=== PATIENT | female | born 1955 | race African-American/Black ===

== ENCOUNTER 2016-11-08 09:53 | Inpatient (IN) | payer MEDICARE, OTHER ==
[~2016-11-08] VITALS: Ht 170.2 cm; Wt 127.8 kg
[2016-12-11] MEDS ORDERED: LACTATED RINGER'S 1000 ML INJ 1,000 ML IV ONE (12:00)
[2016-12-11] MEDS ORDERED: ONDANSETRON HCL 4 MG/2 ML VIAL IV PUSH ONE (12:00)
[2016-12-11] MEDS ORDERED: NEOSTIGMINE 3 MG/3 ML SYR IV ONE (12:00)
[2016-12-11] MEDS ORDERED: ePHEDrine/NS 25 MG/5 ML SYR IV ONE (12:00)
[2016-12-11] MEDS ORDERED: PROPOFOL 200 MG/20 ML AMP IV ONE (12:00)
[2016-12-11] MEDS ORDERED: METOPROLOL TARTRATE 25 MG TAB PO PRN (12:45)
[2016-12-11] MEDS ORDERED: MELO-1 PO (12:45)
[2016-12-11] MEDS ORDERED: CHLORHEXIDINE GLUCONATE 2 % 1 PACK (2 CLOTHS) TOPICAL PRN (12:45)
[2016-12-11] MEDS ORDERED: ENAL20TA PO (12:45)
[2016-12-11] MEDS ORDERED: LACTATED RINGER'S 1000 ML IV PRN (12:45)
[2016-12-11] MEDS ORDERED: SODIUM CHLORID 0.9% 500 ML IV PRN (12:45)
[2016-12-11] MEDS ORDERED: OMEP20TA PO (12:45)
[2016-12-11] MEDS ORDERED: INSULIN HUMAN REGULAR 1,000 UNITS/10 ML VIAL SQ PRN (12:45)
[2016-12-11] MEDS ORDERED: POVIDONE IODINE 5% (ANTISEPSIS KIT) 4 APPLICATIONS EACH NARE PRN (12:45)
[2016-12-11] MEDS ORDERED: VANCOMYCIN HCL 1000 MG VIAL ONE (12:52)
[2016-12-11] MEDS ORDERED: SODIUM CHLOR 0.9% 250 ML INJ 250 ML ONE (12:52)
[2016-12-11] MEDS ORDERED: COUM7.5T PO (12:54)
[2016-12-11 12:55] VITALS: BP 140/89; PULSE 76; RESP 16; TEMP 97.8; O2SAT 97
[2016-12-11] MEDS ORDERED: ceFAZolin 2 GM PREMIX 50 ML IV SCH (13:00)
[2016-12-11] MEDS ORDERED: VANCOMYCIN 1000 MG/NS 250 ML (for <70 kg) IV SCH ×2 (13:00)
[2016-12-11] MEDS ORDERED: CHLORHEXIDINE GLUCONATE 4% SOLN 120 ML BTL TOPICAL SCH (13:00)
[2016-12-11] MEDS ORDERED: ROPIVACAINE PERI-ARTICULAR INJECTION. P-ARTICULR SCH ×5 (13:00)
[2016-12-11 13:20] LABS: INTERNATIONAL NORMALIZED RATIO 0.9 RATIO; PROTHROMBIN TIME - PATIENT 10.2 SEC (9.8-11.6)
[2016-12-11] MEDS ORDERED: GENTAMICIN SULFATE 80 MG/2 ML VIAL ONE ×2 (13:46)
[2016-12-11] MEDS ORDERED: MIDAZOLAM HCL 2 MG/2 ML VIAL ONE (13:51)
[2016-12-11] MEDS ORDERED: fentaNYL CITRATE 250 MCG/5 ML AMP ONE (13:51)
[2016-12-11] MEDS ORDERED: FAMOTIDINE 20 MG/2 ML VIAL ONE (13:51)
[2016-12-11] MEDS ORDERED: ACETAMINOPHEN 1000 MG/100 ML VIAL IV ONE (13:51)
[2016-12-11] MEDS ORDERED: DEXAMETHASONE SOD PHOS 4 MG/ML VIAL ONE (13:51)
[2016-12-11] MEDS ORDERED: ceFAZolin INJ 1,000 MG VIAL ONE (13:52)
[2016-12-11] MEDS ORDERED: SUGAMMADEX SODIUM 200 MG/2 ML VIAL IV PUSH ONE ×2 (13:52)
[2016-12-11] MEDS ORDERED: GENTAMICIN SULFATE 80 MG/2 ML VIAL IRRIGATION ONE (15:48)
--- NOTE | 2016-12-11 17:15 | HHI.PR ---
Immediate Post Op Note Procedure Date: December 11, 2016 Pre Op Diagnosis: R Knee Severe Tricompartment OA Post Op Diagnosis: Same Surgeon: Dylan Martin MD Methods Time Analyst(s): Shannan Palacios PA-C Procedure: R TKR Complications: None Specimen(s) removed: None Estimated blood loss: 100cc Anesthesia: General, Regional Block, Local Drains: Hemovac Tourniquet time (min at mmHg) 68 min @ 275 mmHg Patient to: PACU Patient Condition: Good Implant/Devices: SEE IMPLANT LOG (if applicable) Date/Time of Procedure: SEE SURGICAL CARE RECORD Dylan Martin MD December 11, 2016 17:15
[2016-12-11] MEDS: LACTATED RINGER'S 1000 ML INJ 1,000 ML IV SCH (17:20)
[2016-12-11] MEDS ORDERED: BEDSIDE COMMODE1 MI1 (17:25)
[2016-12-11] MEDS ORDERED: WALKER WHEELS/F1 MIS (17:25)
[2016-12-11] MEDS ORDERED: CPMMACHINE (17:25)
[2016-12-11] MEDS ORDERED: SODIUM CHLORIDE 0.9% FLUSH 5 ML FLUSH IVF PRN (17:30)
[2016-12-11] MEDS ORDERED: Post-op Orders (for Pharmacy) MISC XX ONE (17:30)
[2016-12-11] MEDS ORDERED: MORPHINE SULFATE 4 MG/ML INJ ONE (17:33)
[2016-12-11] MEDS ORDERED: *morphine SULFATE 8 MG/ML PERIprocedure ONLY ONE (17:42)
[2016-12-11] MEDS ORDERED: ALUMINUM/MAGNESIUM/SIMETH 30 ML CUP PO PRN (18:00)
[2016-12-11] MEDS ORDERED: ONDANSETRON HCL 4 MG/2 ML VIAL IVP PRN (18:00)
[2016-12-11] MEDS ORDERED: MORPHINE SULFATE 8 MG/ML INJ IM PRN (18:00)
[2016-12-11] MEDS ORDERED: ZOLPIDEM TARTRATE 5 MG TAB PO PRN (18:00)
--- NOTE | 2016-12-11 18:19 | RADRPT ---
EXAM DATE/TIME: 12/11/2016 17:51 [facility] COMPARISON: No previous studies available for comparison. INDICATIONS : Post op right knee. MEDICAL HISTORY : None. SURGICAL HISTORY : None. ENCOUNTER: Initial ACUITY: 1 day PAIN SCORE: Non-responsive. LOCATION: Right knee. FINDINGS: Right total knee arthroplasty is present. Hardware is intact. Alignment is anatomic. Surgical drains and ventral skin courtney are noted. CONCLUSION: Satisfactory post right TKA Cole Garibay MD on December 11, 2016 at 18:17 Board Certified Radiologist. This report was verified electronically.
[2016-12-11] MEDS: ACETAMINOPHEN/HYDROcodone 325 MG/7.5 MG TAB PO PRN ×2 (19:00→23:45)
[2016-12-11 19:45] VITALS: BP 126/73; PULSE 72; RESP 17; TEMP 96.7; O2SAT 99
[2016-12-11] MEDS: SODIUM CHLORIDE 0.9% FLUSH 5 ML FLUSH IVF SCH (21:00)
[2016-12-11 21:27] VITALS: O2SAT 97
[2016-12-12] VITALS (11 sets, daily range): BP systolic 73–112; BP diastolic 42–72; PULSE 64–77; RESP 16–20; TEMP 96.8–99.6; O2SAT 93–99
[2016-12-12] MEDS: LACTATED RINGER'S 1000 ML INJ 1,000 ML IV SCH ×2 (05:50→18:20)
--- NOTE | 2016-12-12 07:35 | PD.ORT.PN ---
Subjective Subjective Remarks POD#1 R TKR No SOB,no chest pain Objective Vitals Vital Signs Date Time Temp Pulse Resp B/P Pulse Ox O2 Delivery O2 Flow Rate FiO2 12/12/16 03:45 97.5 65 16 91/51 98 12/12/16 00:15 97.3 71 16 112/72 99 12/11/16 21:27 97 Nasal Cannula 3.00 12/11/16 19:45 96.7 72 17 126/73 99 12/11/16 18:59 Room Air 12/11/16 18:00 68 16 135/74 97 Nasal Cannula 3 12/11/16 17:45 74 16 141/77 97 Nasal Cannula 3 12/11/16 17:30 73 16 135/69 96 Nasal Cannula 3 12/11/16 17:25 97.4 75 16 128/62 97 Nasal Cannula 3 12/11/16 12:55 97.8 76 16 140/89 97 I/O 12/11/16 12/11/16 12/11/16 12/12/16 12/12/16 12/12/16 07:00 15:00 23:00 07:00 15:00 23:00 Intake Total 2475 ml 240 ml Output Total 700 ml 135 ml Balance 1775 ml 105 ml Intake Oral 480 ml 240 ml IV Total 695 ml Autotransfusion 300 ml Other 1000 ml Output Urine Total 300 ml Drainage Total 50 ml 135 ml Estimated Blood Loss 50 ml Autotransfusion 300 ml Other 0 ml # Voids 0 1 # Bowel Movements 0 0 Other Results Laboratory Tests Test 12/11/16 12:40 Prothrombin Time 10.2 SEC (9.8-11.6) Prothromb Time International 0.9 RATIO Ratio Imaging Last 24 hours Impressions Knee X-Ray 12/11/16 1720 Signed Impressions: Service Date/Time: Sunday, December 11, 2016 17:51 - CONCLUSION: Satisfactory post right TKA Cole Garibay MD Objective Remarks N/V intact Neg ric's,no calf tenderness Assessment & Plan Assessment and Plan Ortho stable Coumadin,TEDS,Sequentials for DVT prophylaxsis PT,Rehab D/C to SNF on Dylan Martin MD December 12, 2016 07:34
[2016-12-12 08:21] LABS: HEMATOCRIT 27.9 % (35.0-46.0); REVIEW FLAG FINAL
--- NOTE | 2016-12-12 08:26 | PD.CONS ---
HPI Service [facility] Hospitalists Consult Requested By Orthopedic surgery Reason for Consult Medical management Primary Care Physician Cole Villa MD Diagnoses: (1) Osteoarthritis of right knee (2) Hypertension History of Present Illness Ms. Malloy is a pleasant 61-year-old female with a history of hypertension who underwent elective right total knee arthroplasty on 12/11/2016. Patient reports significant pain from osteoarthritis of her right knee despite using conservative management. Hospitalist service was consulted for medical management. At the time of this interview, patient reports right knee pain. She is about to work with physical therapy. Her blood pressure has been slightly on the lower side. Blood pressure was 91/51 and then repeat blood pressure this morning shows 98/60. Patient remains asymptomatic. Denies any chest pain, shortness of breath, fever or chills. Denies any changes in bowel or bladder habits. 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 Past Surgical History Gastric bypass and reversal Hysterectomy Right breast lumpectomy Cholecystectomy 2 C-sections Reported Medications Enalapril 20 mg daily Meloxicam 15 mg daily Omeprazole 20 mg by mouth daily Family History Mother - congestive heart failure, arthritis, dementia Social History Patient is smokes about half a pack a day. Denies using alcohol or illicit drugs Physical Exam Vital Signs Vital Signs Date Time Temp Pulse Resp B/P Pulse Ox O2 Delivery O2 Flow Rate FiO2 12/12/16 03:45 97.5 65 16 91/51 98 12/12/16 00:15 97.3 71 16 112/72 99 12/11/16 21:27 97 Nasal Cannula 3.00 12/11/16 19:45 96.7 72 17 126/73 99 12/11/16 18:59 Room Air 12/11/16 18:00 68 16 135/74 97 Nasal Cannula 3 12/11/16 17:45 74 16 141/77 97 Nasal Cannula 3 12/11/16 17:30 73 16 135/69 96 Nasal Cannula 3 12/11/16 17:25 97.4 75 16 128/62 97 Nasal Cannula 3 12/11/16 12:55 97.8 76 16 140/89 97 Physical Exam GENERAL: This is a well-nourished, well-developed patient, in no apparent distress. SKIN: No rashes, ecchymoses or lesions. Warm and dry. HEAD: Atraumatic. Normocephalic. No temporal or scalp tenderness. EYES: Pupils equal round and reactive. No injection or drainage. ENT: Nose without bleeding, purulent drainage or septal hematoma. Airway patent. NECK: Trachea midline. No lymphadenopathy. Supple, nontender, no meningeal signs. CARDIOVASCULAR: Regular rate and rhythm without murmurs, gallops, or rubs. No JVD. RESPIRATORY: Clear to auscultation. Breath sounds equal bilaterally. No wheezes , rales, or rhonchi. GASTROINTESTINAL: Abdomen soft, non-tender, nondistended. No guarding. MUSCULOSKELETAL: Extremities without clubbing, cyanosis, or edema. s/p right TKA. Able to move all toes. NEUROLOGICAL: Awake and alert. Cranial nerves II through XII intact. No focal neurological deficits. Normal speech. Laboratory Laboratory Tests Test 12/11/16 12/11/16 12/12/16 12:35 12:40 06:43 Blood Type B POSITIVE B POSITIVE Antibody Screen NEGATIVE Crossmatch Leukocyte-Reduced Red Blood Cells Blood Bank Comment Prothrombin Time 10.2 Prothromb Time International 0.9 Ratio Hemoglobin 9.1 Hematocrit 27.9 Result Diagram: 12/12/16 0643 Imaging Last Impressions Knee X-Ray 12/11/16 1720 Signed Impressions: Service Date/Time: Sunday, December 11, 2016 17:51 - CONCLUSION: Satisfactory post right TKA Cole Garibay MD Assessment and Plan Problem List: (1) Osteoarthritis of right knee ICD Code: M17.11 Status: Acute (2) Hypertension ICD Code: I10 Status: Acute (3) Morbid obesity with BMI of 40.0-44.9, adult ICD Code: E66.01 Status: Acute (4) GERD (gastroesophageal reflux disease) ICD Code: K21.9 Status: Acute (5) Tobacco abuse ICD Code: Z72.0 Status: Acute Assessment and Plan Ms. Malloy is a 61-year-old female with a history of osteoarthritis, hypertension who underwent elective right total knee arthroplasty on 12/11/2016. Hospitalist service was consulted for medical management. Osteoarthritis of right knee - Status post right total knee arthroplasty. - Continue pain management with [place], morphine when necessary - Milk of magnesia, Dulcolax suppository, Fleet enema when necessary for bowel regimen - Tentative plan to discharge patient to SNF on 12/14/2016. - Warfarin for anticoagulation. Hypertension - Patient takes enalapril 20 mg by mouth daily. Hold blood pressure medications if systolic blood pressure is below 115. - Currently patient is somewhat hypotensive with blood pressure 98/60. - We'll start gentle hydration with normal 100 cc per hour for 1 day. GERD - continue Protonix 20 mg daily. Tobacco abuse - patient is counseled on quitting smoking. Thank you for the consult. We'll continue to follow this patient with you. Full code. Warfarin. Narendra Worrell DO December 12, 2016 8:26 am
[2016-12-12 08:28] LABS: PROTHROMBIN TIME - PATIENT 10.9 SEC (9.8-11.6)
[2016-12-12] MEDS: PANTOPRAZOLE SOD 20 MG DELAYED RELEASE TAB PO SCH (08:43)
[2016-12-12] MEDS: ACETAMINOPHEN/HYDROcodone 325 MG/7.5 MG TAB PO PRN ×3 (08:43→21:02)
[2016-12-12] MEDS: SODIUM CHLORIDE 0.9% FLUSH 5 ML FLUSH IVF SCH (08:44)
[2016-12-12] MEDS: SODIUM CHLORIDE 0.9% FLUSH 10 ML FLUSH IV FLUSH PRN (08:44)
[2016-12-12] MEDS: ENALAPRIL MALEATE 10 MG TAB PO SCH (08:45)
[2016-12-12] MEDS ORDERED: SOD PHOSPHATE/SOD BIPHOSPHATE (ADULT) ENEMA 133ML RECTAL PRN (09:15)
[2016-12-12] MEDS ORDERED: BISACODYL 10 MG SUPP RECTAL PRN (09:15)
[2016-12-12] MEDS ORDERED: MAGNESIUM HYDROXIDE SUSP 30 ML CUP PO PRN (09:15)
[2016-12-12] MEDS: SODIUM CHLOR 0.9% 1000 ML INJ 1,000 ML IV SCH (10:00)
--- NOTE | 2016-12-12 11:44 | MP ---
cc: FLY YEBOAH M.D., JOHN R. M.D. DATE OF SURGERY December 11, 2016 PREOPERATIVE DIAGNOSES 1. Right knee severe tricompartmental osteoarthritis. 2. Obesity. POSTOPERATIVE DIAGNOSES 1. Right knee severe tricompartmental osteoarthritis. 2. Obesity. PROCEDURE Right total knee arthroplasty - cemented Biomet Vanguard. SURGEON Sydney Yeboah MD SUPERVISOR SOAKERS Shannan Palacios PA-C SPECIMENS None. ESTIMATED BLOOD LOSS 100 cc. COMPLICATIONS None. ANESTHESIA General. Abductor canal regional block, local anesthesia. ANESTHESIA General. DRAINS Two. TOURNIQUET TIME 68 minutes at 275 mmHg. CONDITION Stable. PLAN OF ACTIVITY As per orders. PROCEDURE My journeyman operator assistant Shannan Palacios PA-C, was present for the entire surgical case. She was medically necessary for the entire case because of the complexity of the case and to facilitate the performance of the procedure. The PELLET MILL OPERATOR at the back table was not of the skill set him manipulate the instruments, e.g. multiple different soft tissue retractors, trial implants and permanent implants including bone cement. The patient was brought into the operating room, had satisfactory general endotracheal anesthesia by the Department of Anesthesia. The right lower extremity was prepped and draped in the usual sterile manner. The extremity was exsanguinated by elevation and the tourniquet inflated to 275 mmHg. Small anterior medial exposure to the knee was made. Paramedian capsulotomy was performed. Dissection was carried through a considerable amount of adipose tissue down to the underlying fascia. The patient was found to have severe tricompartment osteoarthritis of all three compartments of the knee. The remaining portion of the medial and lateral menisci were removed. The anterior cruciate ligament was already gone. The pctl8 was preserved. The prepatellar fat pad was excised. Using the Biomet Vanguard total knee arthroplasty system, IM guide was used for the distal femur to accept a #70 right femur at a 5-degree valgus cut. Extramedullary guide was used for the tibia; this accepted a 79 tibial component. After appropriate balancing and removal of the posterior osteophytes of the distal femur, a 14 x 79 insert was found to be stable and satisfactory with balancing. The undersurface of the patella was removed to accept the 34-mm three-pronged patellar prosthesis. All trial components were removed and preparation for the cementing was done. Two packages of high viscosity bone cement was used. First the tibial component was cemented with the #79 tibial component, followed by the 70 right femoral component and then the 34-mm, three-pronged patellar prosthesis. A 14 x 79 polyethylene plastic was then used with appropriate clipping mechanism. All excess bone cement was removed. Bone cement was allowed to harden for 13-1/2 minutes. The knee was injected with local anesthetic provided by the Pharmacy Department. The knee was irrigated with 1000 cc of sterile saline antibiotic solution. The wound itself was dry. The tourniquet was deflated, all bleeders coagulated. The wound itself was dry. It was closed over two Hemovac drains hooked up to an Autovac type system. The capsule and extensor mechanism were repaired using #2 Tycron suture. The subcutaneous and subcuticular layers were closed with 0 Vicryl and 2-0 Vicryl suture and the skin was approximated with skin courtney. Sterile dressing was applied. The patient tolerated the procedure well and arrived in the recovery room in stable and satisfactory condition. MD LAQUITA Limon/YASMIN /5:21 PM /11:28 AM
[2016-12-12] MEDS ORDERED: WARFARIN SOD 7.5 MG TAB PO ONE (16:00)
[2016-12-12] MEDS ORDERED: WARFARIN SOD 5 MG TAB PO SCH (16:00)
[2016-12-13] VITALS (7 sets, daily range): BP systolic 87–104; BP diastolic 50–65; PULSE 69–87; RESP 15–18; TEMP 98.5–100.1; O2SAT 93–99
[2016-12-13] MEDS: ACETAMINOPHEN/HYDROcodone 325 MG/7.5 MG TAB PO PRN ×4 (02:48→22:26)
[2016-12-13] MEDS: SODIUM CHLOR 0.9% 1000 ML INJ 1,000 ML IV SCH (05:15)
[2016-12-13 05:47] LABS: PROTHROMBIN TIME - PATIENT 10.5 SEC (9.8-11.6)
[2016-12-13] MEDS: LACTATED RINGER'S 1000 ML INJ 1,000 ML IV SCH ×2 (06:50→17:08)
--- NOTE | 2016-12-13 07:36 | PD.ORT.PN ---
Subjective Subjective Remarks pt complains of post op knee pain states was unable to do much therapy yesterday due to low blood pressure Objective Vitals Vital Signs Date Time Temp Pulse Resp B/P Pulse Ox O2 Delivery O2 Flow Rate FiO2 12/13/16 04:30 98.5 75 17 104/56 94 12/13/16 00:45 99.9 76 18 97/58 93 12/12/16 21:01 102/56 12/12/16 20:05 99.6 77 18 99/54 93 12/12/16 17:54 95 Nasal Cannula 3.00 12/12/16 16:00 96.9 74 20 89/58 95 12/12/16 13:07 98/60 12/12/16 12:00 96.8 70 20 73/42 95 12/12/16 09:12 98 Nasal Cannula 3.00 12/12/16 08:48 65 98/60 12/12/16 08:00 97.5 64 19 83/50 98 I/O 12/12/16 12/12/16 12/12/16 12/13/16 12/13/16 12/13/16 07:00 15:00 23:00 07:00 15:00 23:00 Intake Total 240 ml 700 ml 480 ml 240 ml Output Total 135 ml Balance 105 ml 700 ml 480 ml 240 ml Intake Oral 240 ml 700 ml 480 ml 240 ml Drainage Total 135 ml # Voids 1 3 1 2 # Bowel Movements 0 0 0 Result Diagram: 12/12/16 0643 Other Results Laboratory Tests Test 12/13/16 05:20 Prothrombin Time 10.5 SEC (9.8-11.6) Prothromb Time International 1.0 RATIO Ratio Imaging Last 24 hours Impressions Knee X-Ray 12/11/16 1720 Signed Impressions: Service Date/Time: Sunday, December 11, 2016 17:51 - CONCLUSION: Satisfactory post right TKA Cole Garibay MD Objective Remarks right knee dressing dry and intact canvas knee splint in place N/V intact Neg ric's,no calf tenderness Assessment & Plan Assessment and Plan POD # 2 s/p R TKA repeat CBC this am Ortho stable Coumadin 7.5 mg today, TEDS,Sequentials for DVT prophylaxsis PT,Rehab D/C to SNF on Shannan Palacios December 13, 2016 07:36
[2016-12-13] MEDS: SODIUM CHLORIDE 0.9% FLUSH 5 ML FLUSH IVF SCH ×2 (08:29→21:00)
[2016-12-13] MEDS: PANTOPRAZOLE SOD 20 MG DELAYED RELEASE TAB PO SCH (08:36)
[2016-12-13] MEDS: ENALAPRIL MALEATE 10 MG TAB PO SCH (08:36)
[2016-12-13 09:41] LABS: HEMATOCRIT 23.9 % (35.0-46.0); MEAN CELL VOLUME 97.5 FL (80.0-100.0); MEAN CORPUSCULAR HEMOGLOBIN 32.5 PG (27.0-34.0); MEAN CORPUSCULAR HGB CONC 33.4 % (32.0-36.0); PLATELET COUNT 142 TH/MM3 (150-450); RED BLOOD COUNT 2.46 MIL/MM3 (4.00-5.30); RED CELL DISTRIBUTION WIDTH 13.9 % (11.6-17.2); REVIEW FLAG FINAL; WHITE BLOOD COUNT 6.3 TH/MM3 (4.0-11.0)
--- NOTE | 2016-12-13 10:31 | HHI.PR ---
Subjective Remarks Follow up for right total knee arthroplasty, low blood pressure. Patient is currently doing well. However, she complains of right lower ext pain. No fever, chills. Denies any chest pain, shortness of breath, fever, chills. Denies any dizziness or lightheadedness. Objective Vitals Vital Signs Date Time Temp Pulse Resp B/P Pulse Ox O2 Delivery O2 Flow Rate FiO2 12/13/16 08:28 98.7 69 18 95/55 99 12/13/16 04:30 98.5 75 17 104/56 94 12/13/16 00:45 99.9 76 18 97/58 93 12/12/16 21:01 102/56 12/12/16 20:05 99.6 77 18 99/54 93 12/12/16 17:54 95 Nasal Cannula 3.00 12/12/16 16:00 96.9 74 20 89/58 95 12/12/16 13:07 98/60 12/12/16 12:00 96.8 70 20 73/42 95 I/O 12/12/16 12/12/16 12/12/16 12/13/16 12/13/16 12/13/16 07:00 15:00 23:00 07:00 15:00 23:00 Intake Total 240 ml 700 ml 480 ml 240 ml Output Total 135 ml Balance 105 ml 700 ml 480 ml 240 ml Intake Oral 240 ml 700 ml 480 ml 240 ml Drainage Total 135 ml # Voids 1 3 1 2 # Bowel Movements 0 0 0 Result Diagram: 12/13/16 0846 Imaging Last Impressions Knee X-Ray 12/11/16 1720 Signed Impressions: Service Date/Time: Sunday, December 11, 2016 17:51 - CONCLUSION: Satisfactory post right TKA Cole Garibay MD Objective Remarks GENERAL: AOX3, NAD. SKIN: Warm and dry. HEAD: Normocephalic. EYES: No scleral icterus. No injection or drainage. NECK: Supple, trachea midline. No JVD or lymphadenopathy. CARDIOVASCULAR: Regular rate and rhythm without murmurs, gallops, or rubs. RESPIRATORY: Breath sounds equal bilaterally. No accessory muscle use. GASTROINTESTINAL: Abdomen soft, non-tender, nondistended. MUSCULOSKELETAL: No cyanosis, or edema. Able to move all toes. s/p right TKA BACK: Nontender without obvious deformity. No CVA tenderness. Procedures 12/11/2016 Right total knee arthroplasty - cemented [employer] V[employer]. A/P Problem List: (1) Osteoarthritis of right knee ICD Code: M17.11 Status: Acute (2) Hypertension ICD Code: I10 Status: Acute (3) Morbid obesity with BMI of 40.0-44.9, adult ICD Code: E66.01 Status: Acute (4) GERD (gastroesophageal reflux disease) ICD Code: K21.9 Status: Acute (5) Tobacco abuse ICD Code: Z72.0 Status: Acute Assessment and Plan Ms. Malloy is a 61-year-old female with a history of osteoarthritis, hypertension who underwent elective right total knee arthroplasty on 12/11/2016. Hospitalist service was consulted for medical management. Osteoarthritis of right knee - Status post right total knee arthroplasty. - Continue pain management with [place], morphine when necessary - Milk of magnesia, Dulcolax suppository, Fleet enema when necessary for bowel regimen - Tentative plan to discharge patient to SNF on 12/14/2016. - Warfarin for anticoagulation. Hypertension - Patient takes enalapril 20 mg by mouth daily. Hold blood pressure medications if systolic blood pressure is below 115. - Currently patient is somewhat hypotensive with blood pressure 95/55 with a MAP of 68. - Increase LR from 80cc/hour to 125cc/hour. GERD - continue Protonix 20 mg daily. Tobacco abuse - patient is counseled on quitting smoking. Full code. Warfarin. Narendra Worrell DO December 13, 2016 10:31 am
[2016-12-13] MEDS ORDERED: WARFARIN SOD 5 MG TAB PO SCH (16:00)
[2016-12-13] MEDS ORDERED: WARFARIN SOD 7.5 MG TAB PO ONE (16:00)
[2016-12-13] MEDS: SODIUM CHLORIDE 0.9% FLUSH 10 ML FLUSH IV FLUSH PRN (22:27)
[2016-12-14] VITALS: BP 88/50; PULSE 82; RESP 20; TEMP 99.3; O2SAT 93
[2016-12-14] MEDS: LACTATED RINGER'S 1000 ML INJ 1,000 ML IV SCH (00:09)
[2016-12-14 04:00] VITALS: BP 97/61; PULSE 82; RESP 20; TEMP 99.1; O2SAT 94
[2016-12-14] MEDS: ACETAMINOPHEN/HYDROcodone 325 MG/7.5 MG TAB PO PRN ×3 (04:15→15:31)
[2016-12-14 08:00] VITALS: BP 90/57; PULSE 72; RESP 18; TEMP 98.7; O2SAT 99
[2016-12-14 08:50] LABS: PROTHROMBIN TIME - PATIENT 11.4 SEC (9.8-11.6)
[2016-12-14] MEDS: SODIUM CHLORIDE 0.9% FLUSH 5 ML FLUSH IVF SCH (09:00)
[2016-12-14] MEDS: ENALAPRIL MALEATE 10 MG TAB PO SCH (09:00)
[2016-12-14] MEDS ORDERED: SODIUM CHLOR 0.9% 1000 ML INJ 1,000 ML IV ONE (09:15)
[2016-12-14] MEDS ORDERED: FERROUS SULFATE 325 MG (65 MG ELEMENTAL IRON) TAB PO SCH (09:30)
--- NOTE | 2016-12-14 09:32 | PD.ORT.PN ---
Subjective Subjective Remarks pt complains of post op knee pain but improved denies any SOB, denies any lightheadedness, denies any chest pain ready to go to rehab Objective Vitals Vital Signs Date Time Temp Pulse Resp B/P Pulse Ox O2 Delivery O2 Flow Rate FiO2 12/14/16 08:00 98.7 72 18 90/57 99 12/14/16 04:00 99.1 82 20 97/61 94 12/14/16 00:00 99.3 82 20 88/50 93 12/13/16 21:40 100.1 87 18 102/50 95 12/13/16 20:24 21 12/13/16 16:53 99.2 81 15 87/63 95 12/13/16 11:57 99.0 76 15 99/65 95 12/13/16 11:01 95 Nasal Cannula 3.00 I/O 12/13/16 12/13/16 12/13/16 12/14/16 12/14/16 12/14/16 07:00 15:00 23:00 07:00 15:00 23:00 Intake Total 240 ml 1640 ml 220 ml Balance 240 ml 1640 ml 220 ml Intake Oral 240 ml 1640 ml 220 ml # Voids 2 6 2 # Bowel Movements 0 0 0 Result Diagram: 12/13/16 0846 Other Results Laboratory Tests Test 12/14/16 08:22 Prothrombin Time 11.4 SEC (9.8-11.6) Prothromb Time International 1.0 RATIO Ratio Imaging Last 24 hours Impressions Knee X-Ray 12/11/16 1720 Signed Impressions: Service Date/Time: Sunday, December 11, 2016 17:51 - CONCLUSION: Satisfactory post right TKA Cole Garibay MD Objective Remarks right knee dressing dry and intact canvas knee splint in place N/V intact Neg ric's,no calf tenderness Assessment & Plan Assessment and Plan POD # 3 s/p R TKA hgb was 8.0, start feso4 325 mg bid x 4 weeks repeat CBC at [facility] on monday 12/18 blood pressure still running lower than her usual but otherwise post op anemia is not symptomatic to patient discharge to SNF today Coumadin 7.5 mg today, TEDS,Sequentials for DVT prophylaxsis PT,Rehab Shannan Palacios December 14, 2016 09:32
--- NOTE | 2016-12-14 09:51 | HHI.PR ---
Subjective Remarks Follow up for right total knee arthroplasty, low blood pressure. Ms. Malloy is doing well. Denies any chest pain, shortness of breath, fever, chills. Objective Vitals Vital Signs Date Time Temp Pulse Resp B/P Pulse Ox O2 Delivery O2 Flow Rate FiO2 12/14/16 08:00 98.7 72 18 90/57 99 12/14/16 04:00 99.1 82 20 97/61 94 12/14/16 00:00 99.3 82 20 88/50 93 12/13/16 21:40 100.1 87 18 102/50 95 12/13/16 20:24 21 12/13/16 16:53 99.2 81 15 87/63 95 12/13/16 11:57 99.0 76 15 99/65 95 12/13/16 11:01 95 Nasal Cannula 3.00 I/O 12/13/16 12/13/16 12/13/16 12/14/16 12/14/16 12/14/16 07:00 15:00 23:00 07:00 15:00 23:00 Intake Total 240 ml 1640 ml 220 ml Balance 240 ml 1640 ml 220 ml Intake Oral 240 ml 1640 ml 220 ml # Voids 2 6 2 # Bowel Movements 0 0 0 Result Diagram: 12/13/16 0846 Objective Remarks GENERAL: AOX3, NAD. SKIN: Warm and dry. HEAD: Normocephalic. EYES: No scleral icterus. No injection or drainage. NECK: Supple, trachea midline. No JVD or lymphadenopathy. CARDIOVASCULAR: Regular rate and rhythm without murmurs, gallops, or rubs. RESPIRATORY: Breath sounds equal bilaterally. No accessory muscle use. GASTROINTESTINAL: Abdomen soft, non-tender, nondistended. MUSCULOSKELETAL: No cyanosis, or edema. Able to move all toes. s/p right TKA BACK: Nontender without obvious deformity. No CVA tenderness. Procedures 12/11/2016 Right total knee arthroplasty - cemented [employer] V[employer]. A/P Problem List: (1) Osteoarthritis of right knee ICD Code: M17.11 Status: Acute (2) Hypertension ICD Code: I10 Status: Acute (3) Morbid obesity with BMI of 40.0-44.9, adult ICD Code: E66.01 Status: Acute (4) GERD (gastroesophageal reflux disease) ICD Code: K21.9 Status: Acute (5) Tobacco abuse ICD Code: Z72.0 Status: Acute Assessment and Plan Ms. Malloy is a 61-year-old female with a history of osteoarthritis, hypertension who underwent elective right total knee arthroplasty on 12/11/2016. Hospitalist service was consulted for medical management. Osteoarthritis of right knee - Status post right total knee arthroplasty. - Continue pain management with [place], morphine when necessary - Milk of magnesia, Dulcolax suppository, Fleet enema when necessary for bowel regimen - Tentative plan to discharge patient to SNF on 12/14/2016. - Warfarin for anticoagulation. Hypertension - Patient takes enalapril 20 mg by mouth daily. Hold blood pressure medications if systolic blood pressure is below 115. - Currently patient is somewhat hypotensive with blood pressure 95/55 with a MAP of 68. - Increase LR from 80cc/hour to 125cc/hour. - BP was somewhat low again. Patient is asymptomatic. We will give her a bolus of 1 L NS. - Patient is going to be discharged later on. - Later check indicate, blood pressure improved with systolic around 120. GERD - continue Protonix 20 mg daily. Tobacco abuse - patient is counseled on quitting smoking. Full code. Warfarin. Narendra Worrell DO December 14, 2016 09:51
[2016-12-14] MEDS: PANTOPRAZOLE SOD 20 MG DELAYED RELEASE TAB PO SCH (09:52)
[2016-12-14 11:56] VITALS: BP 119/64; PULSE 81; RESP 18; TEMP 96.3; O2SAT 96
[2016-12-14] MEDS ORDERED: HYDR-3288 PO (11:56)
[2016-12-14] MEDS ORDERED: COUM7.5T PO (11:56)
[2016-12-14] MEDS ORDERED: WARFARIN SOD 5 MG TAB PO SCH (16:00)
--- NOTE | 2016-12-19 10:36 | HHI.DS ---
Discharge Summary Admission Date December 11, 2016 at 11:59 Discharge Date: December 14, 2016 Admitting Diagnosis right knee osteoarthritis Diagnosis: (1) Osteoarthritis of right knee Diagnosis: Principal Procedures right total knee arthroplasty Brief History This is a 61 year old female patient who presents with the following history. Patient has had right greater than left knee pain for many years. She has used a motorized scooter for the last five years. She had therapy but it increased her knee pain. She underwent right knee steroid injection which only improved her symptoms by 25%. She also tried Meloxicam NSAID which was not helpful. Patient is ready to proceed forward with surgical intervention. Imaging xrays of right knee show tri compartment OA, severe medial compartment, genu varus of 4.1 degrees PE at Discharge right knee dressing dry and intact canvas knee splint in place N/V intact Neg ric's,no calf tenderness Hospital Course Patient underwent satisfactory anaesthesia by the dept of anaesthesia. She underwent right total knee arthroplasty on the date of admission. She did well following the procedure. She was started on low dose coumadin night before surgery and will be treated with low dose coumadin for four weeks for dvt prop. She was started with full weight bearing ambulation and CPM machine on POD #1. She was also treated with sequentials and knee high TEDs during her stay and followed by the medical team. She progressed well and was discharged on pod #3 in stable condition to a [facility] facility. Pt Condition on Discharge: Stable Discharge Disposition: Discharge to SNF Discharge Instructions Diet Instructions: Coumadin (Warfarin) Diet Activities You Can Perform: Weight Bearing as Shannan Yanez December 19, 2016 10:36
== END 2016-12-14 16:50 | DRG 470 ==
LOC: HSDI 12-11 11:59 → N06A 12-11 18:31
PROVIDERS: ADMIT Orthopaedic Surgery Orthopaedic Surgery of the Spine; ATTEND Orthopaedic Surgery Orthopaedic Surgery of the Spine
PROC: 3E0T3CZ (ICD-10-PCS; 2016-12-11)
PROC: 0SRC0J9 Replacement of Right Knee Joint with Synthetic Substitute, Cemented, Open Approach (ICD-10-PCS; principal; 2016-12-11 14:40)
DX: M17.11 Unilateral primary osteoarthritis, right knee (principal); Z68.41 Body mass index [BMI] 40.0-44.9, adult; I10 Essential (primary) hypertension; E66.01 Morbid (severe) obesity due to excess calories; D64.9 Anemia, unspecified; K21.9 Gastro-esophageal reflux disease without esophagitis; F17.210 Nicotine dependence, cigarettes, uncomplicated
CPT/HCPCS: 73560; 85014; 85018; 85027; 85610; 86850; 86900; 86901; 86920; 87641; 94150; C1776; J0131; J0171; J0690; J0735; J1100; J1580; J1642; J1885; J2250; J2270; J2405; J2710; J2795; J3010; J3370; J7030; J7050; J7120; L1830

== ENCOUNTER → 2016-11-10 | Outpatient (CLI) | payer MEDICARE, MEDICAID ==
[~2016-11-10] MED LIST: BEDSIDE COMMODE1 MI1; CELE20TA PO; CHLO500T13 PO; COUM7.5T PO; CPMMACHINE; ENAL20TA PO; HYDR-3288 PO; IBUPPOW25 XX; IMIT50TA PO; MELO-1 PO; OMEP20TA PO; SIMV10TA OR; WALKER WHEELS/F1 MIS
--- NOTE | 2016-11-12 21:33 | EKG ---
Date Performed: 11/10/2016 Time Performed: 15:57:59 PTAGE: 61 years EKG: Sinus rhythm NORMAL ECG PREVIOUS TRACING : 04/02/2009 18.58 DOCTOR: Mariela Bains Interpretating Date/Time 11/12/2016 21:30:30
== END ==
LOC: HCAV 15:45
DX: Z01.810 Encounter for preprocedural cardiovascular examination (principal)
CPT/HCPCS: 93005

== ENCOUNTER → 2016-11-17 | Outpatient (CLI) | payer MEDICARE, MEDICAID ==
[2016-11-17 10:23] LABS: BLOOD, URINE NEG (NEG); GLUCOSE,URINE NEG (NEG); KETONE, URINE NEG (NEG); MUCUS URINE FEW /lpf (OCC); NITRITE,URINE NEG (NEG); SQUAMOUS EPITHELIAL CELL URINE <1 /hpf (0-5); URINE COLOR LIGHT-YELLOW (YELLW/STRAW)
[2016-11-17 10:26] LABS: COMMENT (UR) CATH-CULT NOT IND; CULTURE IF INDICATED CATH CULTURE NOT IND
== END ==
LOC: CPRE 08:15
PROVIDERS: ATTEND Orthopaedic Surgery Orthopaedic Surgery of the Spine
DX: Z01.812 Encounter for preprocedural laboratory examination (principal); M17.11 Unilateral primary osteoarthritis, right knee
CPT/HCPCS: 81001

== ENCOUNTER → 2016-11-21 | Outpatient (CLI) | payer MEDICARE, MEDICAID ==
[2016-11-21 15:20] LABS: MRSA PCR POSITIVE (NEGATIVE); STAPH AUREUS PCR POSITIVE (NEGATIVE)
== END ==
LOC: CPRE 11:34
PROVIDERS: ATTEND Orthopaedic Surgery Orthopaedic Surgery of the Spine
DX: Z01.812 Encounter for preprocedural laboratory examination (principal); M17.11 Unilateral primary osteoarthritis, right knee
CPT/HCPCS: 87640; 87641

== ENCOUNTER 2017-05-14 12:40 | Day surgery (SDC) | payer MEDICARE, OTHER ==
[~2017-05-14] VITALS: Ht 170.2 cm; Wt 133.4 kg
[~2017-05-14 12:40] MED LIST changes: -CELE20TA PO; -CHLO500T13 PO; -CPMMACHINE; -IBUPPOW25 XX; -IMIT50TA PO; -MELO-1 PO; -SIMV10TA OR
[2017-05-14] MEDS ORDERED: METOPROLOL TARTRATE 25 MG TAB PO PRN (13:15)
[2017-05-14] MEDS ORDERED: LACTATED RINGER'S 1000 ML IV PRN (13:15)
[2017-05-14] MEDS ORDERED: POVIDONE IODINE 5% (ANTISEPSIS KIT) 4 APPLICATIONS EACH NARE PRN (13:15)
[2017-05-14] MEDS ORDERED: SODIUM CHLORID 0.9% 500 ML IV PRN (13:15)
[2017-05-14] MEDS ORDERED: INSULIN HUMAN REGULAR 1,000 UNITS/10 ML VIAL SQ PRN (13:15)
[2017-05-14] MEDS ORDERED: CHLORHEXIDINE GLUCONATE 2 % 1 PACK (2 CLOTHS) TOPICAL PRN (13:15)
[2017-05-14] MEDS ORDERED: VANCOMYCIN 1000 MG/NS 250 ML (for <70 kg) IV SCH ×2 (13:30)
[2017-05-14] MEDS ORDERED: CHLORHEXIDINE GLUCONATE 4% SOLN 120 ML BTL TOPICAL SCH (13:30)
[2017-05-14] MEDS ORDERED: ceFAZolin 2 GM PREMIX 50 ML IV SCH (13:30)
[2017-05-14 13:34] VITALS: BP 150/77; PULSE 80; RESP 16; TEMP 98.8; O2SAT 96
[2017-05-14] MEDS ORDERED: PRAV40TA2 PO (13:42)
[2017-05-14] MEDS ORDERED: MELO-1 PO (13:42)
[2017-05-14] MEDS ORDERED: GENTAMICIN SULFATE 80 MG/2 ML VIAL ONE (13:45)
[2017-05-14] MEDS ORDERED: ROPIVACAINE PERI-ARTICULAR INJECTION. P-ARTICULR SCH ×5 (14:00)
== END 2017-05-14 14:45 | disposition home or self-care (01) ==
LOC: HSDC 12:40 → HSDI 12:40 → UNDOADMIN 12:40 → HSDI 12:40 → HSDC 14:45 → UNDODISIN 14:45
PROVIDERS: ATTEND Orthopaedic Surgery Orthopaedic Surgery of the Spine
DX: M17.12 Unilateral primary osteoarthritis, left knee (principal); R05 Cough; Z53.8 Procedure and treatment not carried out for other reasons
CPT/HCPCS: 86850; 86900; 86901; 86920; G0463; J0735; J1580; J1642; J1885; J2795; L1830; 99211

== ENCOUNTER 2017-05-31 11:32 | Inpatient (IN) | payer MEDICARE, OTHER ==
[~2017-05-31] VITALS: Ht 170.2 cm; Wt 144.0 kg
[~2017-05-31 11:32] MED LIST changes: -BEDSIDE COMMODE1 MI1; -ENAL20TA PO; +MELO-1 PO; +PRAV40TA2 PO; -WALKER WHEELS/F1 MIS
[2017-05-31] MEDS ORDERED: NEOSTIGMINE 3 MG/3 ML SYR IV ONE (12:00)
[2017-05-31] MEDS ORDERED: ceFAZolin 2 GM PREMIX 50 ML IV SCH (12:00)
[2017-05-31] MEDS ORDERED: CHLORHEXIDINE GLUCONATE 4% SOLN 120 ML BTL TOPICAL SCH (12:00)
[2017-05-31] MEDS ORDERED: ROCURONIUM INJ 50 MG/5 ML SYRINGE IV PUSH ONE (12:00)
[2017-05-31] MEDS ORDERED: ONDANSETRON HCL 4 MG/2 ML VIAL IV PUSH ONE (12:00)
[2017-05-31] MEDS ORDERED: LACTATED RINGER'S 1000 ML INJ 1,000 ML IV ONE (12:00)
[2017-05-31] MEDS ORDERED: MIDAZOLAM HCL 2 MG/2 ML VIAL IV ONE (12:00)
[2017-05-31] MEDS ORDERED: LIDOCAINE HCL 1% PF 5 ML AMPULE OTHER ONE (12:00)
[2017-05-31] MEDS ORDERED: VANCOMYCIN 1000 MG/NS 250 ML (for <70 kg) IV SCH ×2 (12:00)
[2017-05-31] MEDS ORDERED: ROPIVACAINE PERI-ARTICULAR INJECTION. P-ARTICULR SCH ×5 (12:00)
[2017-05-31] MEDS ORDERED: PROPOFOL 200 MG/20 ML AMP IV ONE (12:00)
[2017-05-31] MEDS ORDERED: GLYCOPYRROLATE 1 MG/5 ML VIAL IV PUSH ONE (12:00)
[2017-05-31] MEDS ORDERED: POVIDONE IODINE 5% (ANTISEPSIS KIT) 4 APPLICATIONS EACH NARE PRN (12:15)
[2017-05-31] MEDS ORDERED: SODIUM CHLORID 0.9% 500 ML IV PRN (12:15)
[2017-05-31] MEDS ORDERED: CHLORHEXIDINE GLUCONATE 2 % 1 PACK (2 CLOTHS) TOPICAL PRN (12:15)
[2017-05-31] MEDS ORDERED: LACTATED RINGER'S 1000 ML IV PRN (12:15)
[2017-05-31] MEDS ORDERED: INSULIN HUMAN REGULAR 1,000 UNITS/10 ML VIAL SQ PRN (12:15)
[2017-05-31] MEDS ORDERED: METOPROLOL TARTRATE 25 MG TAB PO PRN (12:15)
[2017-05-31] MEDS ORDERED: GENTAMICIN SULFATE 80 MG/2 ML VIAL ONE (13:18)
[2017-05-31] MEDS ORDERED: ACETAMINOPHEN 1000 MG/100 ML 100 ML IV ONE (13:44)
[2017-05-31] MEDS ORDERED: SODIUM CHLORIDE 0.9% FLUSH 10 ML FLUSH IV FLUSH PRN (14:15)
[2017-05-31] MEDS ORDERED: BUPIVACAINE HCL PF 0.5% 30 ML VIAL ONE (15:38)
[2017-05-31] MEDS ORDERED: DEXAMETHASONE SOD PHOS PF 10 MG/ML VIAL ONE (15:38)
[2017-05-31] MEDS ORDERED: DO NOT ADM ANY ANTICOAGULANT DRUGS PRN (18:37)
[2017-05-31] MEDS ORDERED: WALKER WHEELS/F1 MIS (18:38)
[2017-05-31] MEDS ORDERED: CPMMACHINE (18:38)
[2017-05-31] MEDS ORDERED: SODIUM CHLORIDE 0.9% FLUSH 5 ML FLUSH IVF PRN (18:45)
[2017-05-31] MEDS ORDERED: ZOLPIDEM TARTRATE 5 MG TAB PO PRN (18:45)
[2017-05-31] MEDS ORDERED: Post-op Orders (for Pharmacy) MISC XX ONE (18:45)
[2017-05-31] MEDS ORDERED: ACETAMINOPHEN/HYDROcodone 325 MG/7.5 MG TAB PO PRN (18:45)
[2017-05-31] MEDS ORDERED: ALUMINUM/MAGNESIUM/SIMETH 30 ML CUP PO PRN (18:45)
[2017-05-31] MEDS ORDERED: ONDANSETRON HCL 4 MG/2 ML VIAL IVP PRN (18:45)
[2017-05-31] MEDS ORDERED: *MEPERIDINE 25 MG INJ VIAL PERIprocedural Use ONLY ONE (18:51)
--- NOTE | 2017-05-31 19:10 | RADRPT ---
EXAM DATE/TIME: 05/31/2017 18:37 [facility] COMPARISON: No previous studies available for comparison. INDICATIONS : Post operative knee replacement. MEDICAL HISTORY : None. SURGICAL HISTORY : None. ENCOUNTER: Initial ACUITY: 1 day PAIN SCORE: Non-responsive. LOCATION: Left knee. FINDINGS: Totalkneeprosthesiswellseatedwithoverlyinganteriorsurgicaldrainsandsuperficialstaples CONCLUSION: Total knee prosthesis well seated Sreedhar Prescott MD on May 31, 2017 at 19:08 Board Certified Radiologist. This report was verified electronically.
[2017-05-31] MEDS ORDERED: MORPHINE SULFATE 8 MG/ML INJ ONE (19:13)
[2017-05-31] MEDS ORDERED: *HYDROmorphone PF 1 MG VIAL PERIprocedural Use ONLY ONE (19:22)
[2017-05-31] MEDS ORDERED: *RESP: ALBUTEROL 2.5 MG/3 ML NEB (PRN) PERIprocedural Use ONLY NEB ONE (19:32)
[2017-05-31] MEDS: LACTATED RINGER'S 1000 ML INJ 1,000 ML IV SCH (20:31)
[2017-05-31 20:35] VITALS: BP 140/71; PULSE 75; RESP 19; TEMP 97.4; O2SAT 96
[2017-05-31] MEDS: ACETAMINOPHEN/HYDROcodone 325 MG/7.5 MG TAB PO PRN (20:36)
[2017-05-31] MEDS: SODIUM CHLORIDE 0.9% FLUSH 5 ML FLUSH IVF SCH (20:41)
[2017-05-31] MEDS: MORPHINE SULFATE 8 MG/ML INJ IM PRN (23:34)
[2017-06-01] VITALS (8 sets, daily range): BP systolic 91–121; BP diastolic 55–66; PULSE 61–89; RESP 18; TEMP 96.2–98.6; O2SAT 93–98
[2017-06-01] MEDS: ACETAMINOPHEN/HYDROcodone 325 MG/7.5 MG TAB PO PRN ×5 (01:58→23:26)
[2017-06-01] MEDS: MORPHINE SULFATE 8 MG/ML INJ IM PRN ×3 (04:00→16:22)
[2017-06-01 05:49] LABS: HEMATOCRIT 28.8 % (35.0-46.0); REVIEW FLAG FINAL
[2017-06-01 05:57] LABS: INTERNATIONAL NORMALIZED RATIO 1.1 RATIO; PROTHROMBIN TIME - PATIENT 12.7 SEC (9.8-11.6)
--- NOTE | 2017-06-01 06:43 | MP ---
cc: FLY YEBOAH M.D., JOHN R. M.D. DATE OF SURGERY May 31, 2017 PREOPERATIVE DIAGNOSES Left knee severe tricompartmental osteoarthritis, genu varus deformity, stiffness; morbid obesity POSTOPERATIVE DIAGNOSES Left knee severe tricompartmental osteoarthritis, genu varus deformity, stiffness; morbid obesity PROCEDURE Left total knee arthroplasty - cemented Biomet Vanguard. SURGEON Gillian Yeboah MD FORGING DIE SINKER Shannan Palacios PA-C ESTIMATED BLOOD LOSS 50 cc. SPECIMEN None. COMPLICATIONS None. ANESTHESIA General, regional adductor canal block, intraarticular anesthetic injection. DRAINS Two. TOURNIQUET TIME 80 minutes at 275 mmHg. CONDITION Stable. PLAN OF ACTIVITY As per orders. PROCEDURE The patient was brought into the operating room and had satisfactory anesthesia by the Department of Anesthesia. The patient had general anesthesia followed by adductor canal anesthesia. Because of the patient's morbid obesity great care was made to protect all pressure points throughout the entire operative procedure. The left lower extremity was prepped and draped in the usual sterile manner. The extremity was exsanguinated by elevation and the tourniquet was inflated to 275 mmHg. An anterior exposure to the knee was made. Dissection was carried through a considerable amount of adipose tissue down to the underlying fascia. Paramedian capsulotomy was performed. The patient was found to have severe osteoarthritis of all three compartments. The prepatellar fat pad was excised. The remaining portion of the medial and lateral meniscus were removed. The anterior cruciate ligament was removed. The posterior cruciate ligament was preserved. Using the Biomet Vanguard total knee arthroplasty system, IM guide was used for the distal femur. This was a 5-degree valgus cut to accept a 70-mm femoral component. Next, extramedullary guide was used for the tibia and this was to accept a 79 mm tibial component. Lamina spreaders were used to help remove the posterior osteophyte formations and loose bodies that were in the posterior aspect of the knee, medially and laterally. The undersurface of the patella was removed to accept a 31-mm three-pronged patellar prosthesis. Trial reduction was made with a 10-mm insert and the patient was found to have excellent balance with flexion and extension. All trial components were removed. Preparation for cementing was made. Initially the knee was injected with the anesthetic medication provided by the Pharmacy Department. The knee was irrigated with copious amounts of sterile saline antibiotic solution. Preparation for cementing was made. Two packages of Palacos bone cement by [employer] were used. First the tibial component was cemented which is a 79-mm tibial component. All excess bone cement was removed followed by the femoral component which was a 70-mm femoral component. Then the undersurface of the patella was cemented with a 31-mm, three-pronged patellar prosthesis. Bone cement was allowed to harden for 12 minutes. The tibial bearing was then assembled onto the tibial tray. This is a 10-mm insert x 79. The clipping mechanism was able to secure the polyethylene plastic onto the tibial tray. The tourniquet was deflated. All bleeders were coagulated. The wound itself was dry. Lateral retinacular release was performed. The knee was irrigated with 4000 cc of sterile saline antibiotic solution. The wound was closed over two Hemovac drains hooked up to an Autovac type system. The capsule and extensor mechanism was repaired using multiple interrupted #2 Tycron suture, the subcutaneous layer with 0 Vicryl and 2-0 Vicryl. The skin was approximated with skin courtney. Sterile dressings were applied. The patient tolerated the procedure well and arrived in the recovery room in stable and satisfactory condition. MD LAQUITA Limon/SSB /6:27 PM /6:16 AM
[2017-06-01] MEDS: LACTATED RINGER'S 1000 ML INJ 1,000 ML IV SCH ×2 (07:03→19:25)
--- NOTE | 2017-06-01 07:08 | PD.ORT.PN ---
Subjective Subjective Remarks POD#1 L TKR C/O post op pain No SOB;No chest pain Objective Vitals Vital Signs Date Time Temp Pulse Resp B/P (MAP) Pulse Ox O2 Delivery O2 Flow Rate FiO2 06/01/17 04:30 98.6 89 18 114/66 (82) 95 06/01/17 00:25 97.6 82 18 109/62 (78) 97 05/31/17 20:35 97.4 75 19 140/71 (94) 96 05/31/17 20:00 70 24 112/59 (76) 96 Nasal Cannula 3 05/31/17 19:45 69 20 101/54 (70) 89 Nasal Cannula 3 05/31/17 19:30 56 14 101/54 (70) 91 Nasal Cannula 3 05/31/17 19:15 73 16 117/53 (74) 100 Nasal Cannula 3 05/31/17 19:00 71 15 115/56 (75) 100 Nasal Cannula 3 05/31/17 18:45 66 19 121/59 (79) 100 Nasal Cannula 3 05/31/17 18:38 98.4 66 19 125/60 (81) 100 Nasal Cannula 3 05/31/17 12:21 98.4 76 20 150/86 (107) 98 I/O 05/31/17 05/31/17 05/31/17 06/01/17 06/01/17 06/01/17 07:00 15:00 23:00 07:00 15:00 23:00 Intake Total 1480 ml 1647 ml Output Total 350 ml 725 ml Balance 1130 ml 922 ml Intake Oral 480 ml 720 ml IV Total 927 ml Other 1000 ml Output Urine Total 300 ml 425 ml Estimated Blood Loss 50 ml Autotransfusion 300 ml # Bowel Movements 0 0 Result Diagram: 06/01/17 0535 Other Results Laboratory Tests Test 06/01/17 05:35 Prothromb Time International Ratio 1.1 RATIO Prothrombin Time 12.7 SEC (9.8-11.6) Imaging Last 24 hours Impressions Knee X-Ray 05/31/17 1270 Signed Impressions: Service Date/Time: May 18:37 - CONCLUSION: Total knee prosthesis well seated Sreedhar Prescott MD Objective Remarks N/V intact Dressings dry Assessment & Plan Assessment and Plan Ortho stable PT/Rehab DVT prophylaxsis with coumadin,TEDS,sequentials D/C to SNF on Sunday for continued PT/Rehab Dylan Martin MD Jun 01, 2017 07:08
[2017-06-01] MEDS: PRAVASTATIN SOD 40 MG TAB PO SCH (07:28)
[2017-06-01] MEDS: PANTOPRAZOLE SOD 20 MG DELAYED RELEASE TAB PO SCH (07:28)
[2017-06-01] MEDS: SODIUM CHLORIDE 0.9% FLUSH 5 ML FLUSH IVF SCH ×2 (07:44→19:25)
[2017-06-01] MEDS ORDERED: WARFARIN SOD 5 MG TAB PO SCH (16:00)
[2017-06-01] MEDS ORDERED: WARFARIN SOD 7.5 MG TAB PO ONE (16:00)
[2017-06-02] VITALS (7 sets, daily range): BP systolic 96–121; BP diastolic 50–63; PULSE 70–94; RESP 16–20; TEMP 96.1–98.9; O2SAT 92–96
[2017-06-02] MEDS: MORPHINE SULFATE 8 MG/ML INJ IM PRN (02:29)
[2017-06-02] MEDS: ACETAMINOPHEN/HYDROcodone 325 MG/7.5 MG TAB PO PRN ×4 (05:45→20:34)
[2017-06-02 06:38] LABS: INTERNATIONAL NORMALIZED RATIO 0.9 RATIO
[2017-06-02] MEDS: PANTOPRAZOLE SOD 20 MG DELAYED RELEASE TAB PO SCH (07:51)
[2017-06-02] MEDS: SODIUM CHLORIDE 0.9% FLUSH 5 ML FLUSH IVF SCH ×2 (07:51→20:35)
[2017-06-02] MEDS: PRAVASTATIN SOD 40 MG TAB PO SCH (07:51)
[2017-06-02] MEDS: LACTATED RINGER'S 1000 ML INJ 1,000 ML IV SCH ×2 (07:55→20:33)
--- NOTE | 2017-06-02 08:27 | PD.ORT.PN ---
Subjective Post Op Day #: 2 Subjective Remarks pain under control. Objective Vitals Vital Signs Date Time Temp Pulse Resp B/P (MAP) Pulse Ox O2 Delivery O2 Flow Rate FiO2 06/02/17 00:00 98.6 85 16 100/59 (73) 96 06/01/17 20:40 95 21 06/01/17 20:05 97.8 69 18 115/57 (76) 95 06/01/17 16:27 16 06/01/17 16:00 97.4 65 18 100/59 (73) 93 06/01/17 12:40 16 06/01/17 11:54 96.2 77 18 121/58 (79) 93 06/01/17 10:50 98 I/O 06/01/17 06/01/17 06/01/17 06/02/17 06/02/17 06/02/17 07:00 15:00 23:00 07:00 15:00 23:00 Intake Total 1647 ml 660 ml 240 ml 240 ml Output Total 1040 ml 400 ml Balance 607 ml 260 ml 240 ml 240 ml Intake Oral 720 ml 660 ml 240 ml 240 ml IV Total 927 ml Output Urine Total 425 ml 400 ml Drainage Total 315 ml Autotransfusion 300 ml # Voids 0 0 1 # Bowel Movements 0 0 0 0 Result Diagram: 06/01/17 0535 Other Results Laboratory Tests Test 06/02/17 05:55 Prothromb Time International Ratio 0.9 RATIO Prothrombin Time 10.0 SEC (9.8-11.6) Imaging Last 24 hours Impressions Knee X-Ray 05/31/17 7543 Signed Impressions: Service Date/Time: May 18:37 - CONCLUSION: Total knee prosthesis well seated Sreedhar Prescott MD Objective Remarks in bed, nad, reading phone. N/V intact Dressings dry Assessment & Plan Ortho Post Op Day #: 2 Problem List: Assessment and Plan Ortho stable PT/Rehab DVT prophylaxsis with coumadin,TEDS,sequentials D/C to SNF on Sunday for continued PT/Rehab Aj Mcclain Jun 02, 2017 08:27
[2017-06-02] MEDS ORDERED: WARFARIN SOD 5 MG TAB PO SCH (16:00)
[2017-06-03] MEDS ORDERED: SODIUM CHLORIDE 0.9% FLUSH 10 ML FLUSH IV FLUSH PRN (06:15)
[2017-06-03 06:29] LABS: PROTHROMBIN TIME - PATIENT 10.6 SEC (9.8-11.6)
--- NOTE | 2017-06-03 07:38 | PD.ORT.PN ---
Subjective Subjective Remarks Patient doing well this morning. Pain well controlled. States she has been doing well with her CPM machine Objective Vitals Vital Signs Date Time Temp Pulse Resp B/P (MAP) Pulse Ox O2 Delivery O2 Flow Rate FiO2 06/03/17 01:47 Room Air 06/02/17 23:20 97.4 83 19 120/54 (76) 94 06/02/17 21:21 17 06/02/17 19:15 98.9 94 19 121/58 (79) 92 06/02/17 16:00 98.2 80 19 115/63 (80) 94 06/02/17 12:00 96.1 71 20 112/60 (77) 96 06/02/17 10:44 94 21 06/02/17 08:00 98.4 70 18 96/50 (65) 94 I/O 06/02/17 06/02/17 06/02/17 06/03/17 06/03/17 06/03/17 07:00 15:00 23:00 07:00 15:00 23:00 Intake Total 240 ml 720 ml 480 ml 480 ml Output Total 400 ml Balance 240 ml 720 ml 80 ml 480 ml Intake Oral 240 ml 720 ml 480 ml 480 ml Output Urine Total 400 ml # Voids 1 4 2 3 # Bowel Movements 0 0 0 Result Diagram: 06/01/17 0535 Other Results Laboratory Tests Test 06/03/17 05:15 Prothromb Time International Ratio 1.0 RATIO Prothrombin Time 10.6 SEC (9.8-11.6) Imaging Last 24 hours Impressions Knee X-Ray 05/31/17 0607 Signed Impressions: Service Date/Time: May 18:37 - CONCLUSION: Total knee prosthesis well seated Sreedhar Prescott MD Objective Remarks in bed, resting comfortably N/V intact distally Dressings dry Assessment & Plan Assessment and Plan Postop day 2 status post left total knee arthroplasty, doing well Ortho stable PT/Rehab DVT prophylaxsis with coumadin,TEDS D/C to SNF on Sunday for continued PT/Rehab Noreen Cruz MD Jun 03, 2017 07:38
[2017-06-03 08:00] VITALS: BP 124/58; PULSE 78; RESP 19; TEMP 101; O2SAT 94
[2017-06-03] MEDS: SODIUM CHLORIDE 0.9% FLUSH 5 ML FLUSH IVF SCH (09:00)
[2017-06-03] MEDS: LACTATED RINGER'S 1000 ML INJ 1,000 ML IV SCH (09:03)
[2017-06-03] MEDS: ACETAMINOPHEN/HYDROcodone 325 MG/7.5 MG TAB PO PRN ×2 (09:23→14:16)
[2017-06-03] MEDS: PANTOPRAZOLE SOD 20 MG DELAYED RELEASE TAB PO SCH (09:24)
[2017-06-03] MEDS: PRAVASTATIN SOD 40 MG TAB PO SCH (09:24)
[2017-06-03] MEDS ORDERED: ACETAMINOPHEN 325 MG TAB PO PRN (12:15)
== END 2017-06-03 15:02 | DRG 470 ==
LOC: HSDI 11:32 → N06B 20:06
PROVIDERS: ADMIT Orthopaedic Surgery Orthopaedic Surgery of the Spine; ATTEND Orthopaedic Surgery Orthopaedic Surgery of the Spine
PROC: 3E0T3BZ Introduction of Anesthetic Agent into Peripheral Nerves and Plexi, Percutaneous Approach (ICD-10-PCS; 2017-05-31)
PROC: 0SRD0J9 Replacement of Left Knee Joint with Synthetic Substitute, Cemented, Open Approach (ICD-10-PCS; principal; 2017-05-31 15:30)
DX: M17.12 Unilateral primary osteoarthritis, left knee (principal); E66.01 Morbid (severe) obesity due to excess calories; M21.169 Varus deformity, not elsewhere classified, unspecified knee; M23.42 Loose body in knee, left knee
CPT/HCPCS: 36430; 73560; 85014; 85018; 85610; 86850; 86900; 86901; 86920; 94150; C1776; J0131; J0690; J0735; J1100; J1170; J1580; J1642; J1885; J2175; J2250; J2270; J2405; J2710; J2795; J3010; J3370; J7050; J7120; J7613; L1830

== ENCOUNTER → 2017-09-12 | Outpatient (CLI) | payer MEDICARE, OTHER ==
[~2017-09-12] MED LIST changes: -COUM7.5T PO; +CPMMACHINE; -MELO-1 PO; -OMEP20TA PO; +OMEP20TA93 PO; +WALKER WHEELS/F1 MIS
[2017-09-12 12:29] LABS: AUTOMATED NEUTROPHIL # 3.3 TH/MM3 (1.8-7.7); BASOPHIL # 0.1 TH/MM3 (0-0.2); BASOPHIL % 1.1 % (0.0-2.0); EOSINOPHIL # 0.1 TH/MM3 (0-0.4); EOSINOPHIL % 1.8 % (0.0-4.0); HEMATOCRIT 33.1 % (35.0-46.0); HEMOGLOBIN 10.6 GM/DL (11.6-15.3); LYMPH % 22.8 % (9.0-44.0); LYMPHOCYTE # 1.1 TH/MM3 (1.0-4.8); MEAN CELL VOLUME 88.8 FL (80.0-100.0); MEAN CORPUSCULAR HEMOGLOBIN 28.4 PG (27.0-34.0); MEAN PLATELET VOLUME 8.3 FL (7.0-11.0); MONO % 8.1 % (0.0-8.0); MONOCYTE # 0.4 TH/MM3 (0-0.9); NEUT % 66.2 % (16.0-70.0); PLATELET COUNT 284 TH/MM3 (150-450); RED BLOOD COUNT 3.72 MIL/MM3 (4.00-5.30); RED CELL DISTRIBUTION WIDTH 18.1 % (11.6-17.2)
[2017-09-12 12:42] LABS: BICARBONATE 28.4 MEQ/L (21.0-32.0); CALCIUM 9.5 MG/DL (8.5-10.1); CREATININE 0.89 MG/DL (0.50-1.00)
--- NOTE | 2017-09-12 15:16 | EKG ---
Date Performed: 09/12/2017 Time Performed: 11:22:29 PTAGE: 61 years EKG: Sinus rhythm NORMAL ECG No significant change from prior electrocardiogram. PREVIOUS TRACING : 11/10/2016 15.57 DOCTOR: Pj Parada Interpretating Date/Time 09/12/2017 15:16:07
== END ==
LOC: CPRE 11:03
PROVIDERS: ATTEND Orthopaedic Surgery Orthopaedic Surgery of the Spine
DX: Z01.812 Encounter for preprocedural laboratory examination (principal); Z01.810 Encounter for preprocedural cardiovascular examination; M48.061 Spinal stenosis, lumbar region without neurogenic claudication
CPT/HCPCS: 36415; 80048; 85025; 93005

== ENCOUNTER 2017-09-24 10:32 | Observation (INO) | payer MEDICARE, OTHER ==
[~2017-09-24] VITALS: Ht 170.2 cm; Wt 136.0 kg
[~2017-09-24 10:32] MED LIST changes: -CPMMACHINE
[2017-09-24] MEDS ORDERED: DEXAMETHASONE SOD PHOS 4 MG/ML VIAL IV ONE (12:00)
[2017-09-24] MEDS ORDERED: PROPOFOL 200 MG/20 ML AMP IV ONE (12:00)
[2017-09-24] MEDS ORDERED: NEOSTIGMINE 5 MG/5 ML SYRINGE IV PUSH ONE (12:00)
[2017-09-24] MEDS ORDERED: CHLORHEXIDINE GLUCONATE 4% SOLN 120 ML BTL TOPICAL SCH (12:00)
[2017-09-24] MEDS ORDERED: CHLORHEXIDINE GLUCONATE 2 % 1 PACK (2 CLOTHS) TOPICAL PRN (12:00)
[2017-09-24] MEDS ORDERED: ROCURONIUM INJ 50 MG/5 ML SYRINGE IV PUSH ONE (12:00)
[2017-09-24] MEDS ORDERED: GLYCOPYRROLATE 1 MG/5 ML SYRINGE IV PUSH ONE (12:00)
[2017-09-24] MEDS ORDERED: ceFAZolin 1,000 MG/NS 100 ML IV SCH ×2 (12:00)
[2017-09-24] MEDS ORDERED: ONDANSETRON HCL 4 MG/2 ML VIAL IV ONE (12:00)
[2017-09-24] MEDS ORDERED: KETOROLAC TROMETHAMINE 30 MG/ML (IVP) VIAL IV PUSH ONE (12:00)
[2017-09-24] MEDS ORDERED: LACTATED RINGER'S 1000 ML IV PRN (12:00)
[2017-09-24] MEDS ORDERED: METOPROLOL TARTRATE 25 MG TAB PO PRN (12:00)
[2017-09-24] MEDS ORDERED: ePHEDrine/NS 25 MG/5 ML SYRINGE IV ONE (12:00)
[2017-09-24] MEDS ORDERED: PHENYLEPH/NS 1000 MCG/10 ML SYR IV ONE (12:00)
[2017-09-24] MEDS ORDERED: POVIDONE IODINE 5% (ANTISEPSIS KIT) 4 APPLICATIONS EACH NARE PRN (12:00)
[2017-09-24] MEDS ORDERED: LIDOCAINE HCL 1% PF 5 ML SYRINGE OTHER ONE (12:00)
[2017-09-24] MEDS ORDERED: SODIUM CHLORID 0.9% 500 ML IV PRN (12:00)
[2017-09-24] MEDS ORDERED: GENTAMICIN SULFATE 80 MG/2 ML VIAL ONE (12:27)
[2017-09-24] MEDS ORDERED: GELATIN 12 MM/7 MM FOAM ONE (12:29)
[2017-09-24] MEDS ORDERED: ceFAZolin 2 GM PREMIX 50 ML ONE (12:48)
[2017-09-24] MEDS ORDERED: VANCOMYCIN HCL 1000 MG VIAL ONE (14:13)
[2017-09-24] MEDS ORDERED: BUPIVACAINE/EPINEPHRINE 0.25% PF 30 ML VIAL ONE (14:25)
[2017-09-24] MEDS ORDERED: SUGAMMADEX SODIUM 200 MG/2 ML VIAL IV PUSH ONE (15:44)
[2017-09-24] MEDS ORDERED: SOD PHOSPHATE/SOD BIPHOSPHATE (ADULT) ENEMA 133ML PR PRN (15:45)
[2017-09-24] MEDS ORDERED: ALUMINUM/MAGNESIUM/SIMETH 30 ML CUP PO PRN (15:45)
[2017-09-24] MEDS ORDERED: ACETAMINOPHEN/HYDROcodone 325 MG/7.5 MG TAB PO PRN (15:45)
[2017-09-24] MEDS ORDERED: BISACODYL 10 MG SUPP RECTAL PRN (15:45)
[2017-09-24] MEDS ORDERED: ONDANSETRON HCL 4 MG/2 ML VIAL IV PUSH PRN (15:45)
[2017-09-24] MEDS ORDERED: Post-op Orders (for Pharmacy) XX ONE (15:45)
[2017-09-24] MEDS ORDERED: HYDR-3288 PO (15:50)
--- NOTE | 2017-09-24 15:54 | HHI.FF ---
Face to Face Verification Diagnosis: (1) Spinal stenosis at L4-L5 level (2) Morbid obesity with BMI of 40.0-44.9, adult Physical Therapy Additional Instructions Bedrest for first few days after surgery then will slowly progress activity levels Nursing RN: 3 days/week x 2 weeks Nursing: Dressing changes (clean incision with alcohol and apply dry sterile dressing ) I have seen patient Roseanne Malloy on 09/24/17. My clinical findings support the need for the requested home health care services because: Deconditioned w/ increased weakness I certify that my clinical findings support that this patient is homebound because: Post-op weakness Dylan Martin MD Sep 24, 2017 15:54
[2017-09-24] MEDS ORDERED: DO NOT ADM ANY ANTICOAGULANT DRUGS PRN (15:55)
[2017-09-24] MEDS ORDERED: ACETAMINOPHEN 1000 MG/100 ML 100 ML IV ONE ×2 (15:58→16:15)
[2017-09-24] MEDS ORDERED: *morphine SULFATE 4 MG/ML PERIprocedure ONLY ONE ×2 (16:11→16:32)
--- NOTE | 2017-09-24 16:19 | RADRPT ---
EXAM DATE/TIME: 09/24/2017 14:40 [facility] COMPARISON: No previous studies available for comparison. INDICATIONS : Lower back pain, laminectomy. MEDICAL HISTORY : None. SURGICAL HISTORY : None. ENCOUNTER: Initial ACUITY: 1 day PAIN SCORE: Non-responsive. LOCATION: Bilateral lower back. FINDINGS: Limited exam base on body habitus. Probe probably at L4-L5. CONCLUSION: Probe probably at L4-L5 Jake Posada MD FACR on September 24, 2017 at 16:16 Board Certified Radiologist. This report was verified electronically.
[2017-09-24] MEDS ORDERED: HYDROmorphone HCL PF 2 MG/ML VIAL ONE (16:50)
[2017-09-24 20:15] VITALS: BP 141/81; PULSE 89; RESP 19; TEMP 96.8; O2SAT 100
[2017-09-24] MEDS: MORPHINE SULFATE 4 MG/ML INJ IV PUSH PRN (20:59)
[2017-09-24] MEDS ORDERED: ZOLPIDEM TARTRATE 5 MG TAB PO PRN (21:00)
[2017-09-24 23:50] VITALS: BP 156/72; PULSE 87; RESP 18; TEMP 96.5; O2SAT 97
[2017-09-24] MEDS: ACETAMINOPHEN/HYDROcodone 325 MG/7.5 MG TAB PO PRN (23:56)
[2017-09-25] MEDS: MORPHINE SULFATE 4 MG/ML INJ IV PUSH PRN ×4 (02:57→21:36)
[2017-09-25 05:32] VITALS: BP 130/60; PULSE 84; RESP 18; TEMP 97.5; O2SAT 96
--- NOTE | 2017-09-25 07:15 | PD.ORT.PN ---
Subjective Subjective Remarks POD# 1 L4-5 alexis No Headache;no radiating LE pain,numbness,or weakness Explained to patient operative findings Objective Vitals Vital Signs Date Time Temp Pulse Resp B/P (MAP) Pulse Ox O2 Delivery O2 Flow Rate FiO2 09/25/17 05:32 97.5 84 18 130/60 (83) 96 09/25/17 02:56 Nasal Cannula 2.00 09/24/17 23:50 96.5 87 18 156/72 (100) 97 09/24/17 20:15 96.8 89 19 141/81 (101) 100 09/24/17 19:13 Nasal Cannula 2.00 09/24/17 18:00 62 14 145/76 (99) 94 Room Air 09/24/17 17:00 67 14 138/81 (100) 95 Room Air 09/24/17 16:45 71 14 140/84 (102) 96 Room Air 09/24/17 16:30 73 14 137/87 (104) 96 Room Air 09/24/17 16:15 71 14 126/64 (84) 96 Room Air 09/24/17 15:54 97.5 77 14 129/68 (88) 99 Simple Mask 8 09/24/17 11:13 98.8 74 18 156/89 (111) 97 I/O 09/24/17 09/24/17 09/24/17 09/25/17 09/25/17 09/25/17 07:00 15:00 23:00 07:00 15:00 23:00 Intake Total 1680 ml 560 ml Output Total 1050 ml Balance 630 ml 560 ml Intake Oral 480 ml 360 ml IV Total 1200 ml 200 ml Output Estimated Blood Loss 50 ml Other 1000 ml # Voids 3 3 # Bowel Movements 0 0 Objective Remarks Moter5/5 juan diego LE Dressings dry Assessment & Plan Assessment and Plan Ortho stable PT/rehab Discharge home today if stable Dylan Martin MD Sep 25, 2017 07:15
[2017-09-25] MEDS: ACETAMINOPHEN/HYDROcodone 325 MG/7.5 MG TAB PO PRN ×2 (07:22→19:43)
[2017-09-25 08:00] VITALS: BP 124/62; PULSE 76; RESP 18; TEMP 96.8; O2SAT 96
[2017-09-25] MEDS: PANTOPRAZOLE SOD 20 MG DELAYED RELEASE TAB PO SCH (08:09)
[2017-09-25] MEDS: PRAVASTATIN SOD 40 MG TAB PO SCH (08:09)
[2017-09-25] MEDS: MULTIVITAMINS/MINERALS THERAPEUTIC TAB PO SCH ×2 (08:09→19:42)
[2017-09-25] MEDS ORDERED: NON-FORMULARY DRUG (Omeprazole 20 MG) PO SCH (09:00)
--- NOTE | 2017-09-25 12:32 | MP ---
cc: FLY YEBOAH M.D., JOHN R. M.D. DATE OF SURGERY September 24, 2017 PREOPERATIVE DIAGNOSES 1. L4-5 severe spinal stenosis. 2. Lumbar spine degenerative disc disease, osteoarthritis. 3. L4-S1 degenerative disc disease and osteoarthritis. 4. Bilateral lumbar radiculitis with bilateral lower extremity weakness. 5. Morbid obesity. POSTOPERATIVE DIAGNOSES 1. L4-5 severe spinal stenosis. 2. Lumbar spine degenerative disc disease, osteoarthritis. 3. L4-S1 degenerative disc disease and osteoarthritis. 4. Bilateral lumbar radiculitis with bilateral lower extremity weakness. 5. Morbid obesity. 6. L4-5 left-sided dural leak. PROCEDURE L4-5 bilateral decompressive hemilaminectomy, bilateral foraminotomy, partial facetectomy, decompression of nerve root; left-sided L4-5 repair dural leak. SURGEON Gillian Yeboah MD [employer] INSTRUCTOR Shannan Palacios PA-C ESTIMATED BLOOD LOSS 50 cc. CONDITION Stable. PLAN OF ACTIVITIES Per orders. ANESTHESIA General anesthesia. PROCEDURE The patient was brought into the operating room, had satisfactory anesthesia by the Department of Anesthesia. The patient was carefully transferred onto the [facility] spinal frame. All pressure points were well padded. The lumbosacral spine was prepped and draped in the usual sterile manner. Because of the patient's morbid obesity, great care was taken to protect all pressure points. Localizing x-ray was used to confirm the L4-5 interspace. 20 cc of 0.25% Marcaine with epinephrine was used to infiltrate the operative site. A midline incision was made over L4-5. Dissection was carried through approximately 7-8 inches of adipose tissue, down to the underlying fascia. Localized x-ray again was used to confirm the L4-5 interspace. The paraspinal musculature was gently removed from the posterior elements at L4-5. A bilateral decompressive hemilaminectomy was performed at L4 and L5, bilateral foraminotomy and partial facetectomy. The patient was found to have a small dural leak on the left side at L4-5. This was primarily repaired and then also covered with Duragen and fibrin glue. No evidence of any further leakage. The wound was closed in multiple layers with the fascia closed with #2 Ticron suture, the subcutaneous layer was closed in multiple layers with 0 Vicryl, 2-0 Vicryl and 3-0 Vicryl. The skin was approximated with interrupted 2-0 nylon. Sterile dressings were applied. The patient tolerated the procedure well and arrived in the recovery room in stable and satisfactory condition. MD LAQUITA Limon/YASMIN /3:42 PM /11:58 AM
[2017-09-25 16:00] VITALS: BP 126/59; PULSE 75; RESP 20; TEMP 99; O2SAT 99
[2017-09-25] MEDS: DOCUSATE SODIUM 100 MG CAP PO SCH (19:42)
[2017-09-25 20:00] VITALS: BP 106/59; PULSE 72; RESP 16; TEMP 99.1; O2SAT 93
[2017-09-26] VITALS: BP 114/63; PULSE 69; RESP 16; TEMP 98.4; O2SAT 96
[2017-09-26] MEDS ORDERED: MAGNESIUM HYDROXIDE SUSP 30 ML CUP PO PRN (02:15)
[2017-09-26] MEDS: ACETAMINOPHEN/HYDROcodone 325 MG/7.5 MG TAB PO PRN ×3 (02:52→17:10)
[2017-09-26] MEDS: MORPHINE SULFATE 4 MG/ML INJ IV PUSH PRN ×3 (04:42→12:20)
--- NOTE | 2017-09-26 07:53 | PD.ORT.PN ---
Subjective Subjective Remarks pt states headache improved from yesterday but still there post op soreness involving lumbar spine Objective Vitals Vital Signs Date Time Temp Pulse Resp B/P (MAP) Pulse Ox O2 Delivery O2 Flow Rate FiO2 09/26/17 00:00 98.4 69 16 114/63 (80) 96 09/25/17 20:00 99.1 72 16 106/59 (75) 93 09/25/17 16:00 99.0 75 20 126/59 (81) 99 09/25/17 08:00 96.8 76 18 124/62 (82) 96 I/O 09/25/17 09/25/17 09/25/17 09/26/17 09/26/17 09/26/17 07:00 15:00 23:00 07:00 15:00 23:00 Intake Total 560 ml 480 ml 600 ml Balance 560 ml 480 ml 600 ml Intake Oral 360 ml 480 ml 600 ml IV Total 200 ml # Voids 3 3 4 # Bowel Movements 0 Objective Remarks patient laying flat in bed Moter5/5 juan diego LE Dressing dry Assessment & Plan Assessment and Plan POD #2 s/p L4-5 laminectomy small dural leak- keep patient laying flat in bed, may get up to use restroom she was advised to drink caffeinated beverages Ortho stable Discharge home later today Shnanan Palacios Sep 26, 2017 07:53
[2017-09-26 08:00] VITALS: BP 136/71; PULSE 62; RESP 17; TEMP 97.9; O2SAT 96
[2017-09-26] MEDS: MULTIVITAMINS/MINERALS THERAPEUTIC TAB PO SCH (08:48)
[2017-09-26] MEDS: PRAVASTATIN SOD 40 MG TAB PO SCH (08:48)
[2017-09-26] MEDS: PANTOPRAZOLE SOD 20 MG DELAYED RELEASE TAB PO SCH (08:48)
[2017-09-26] MEDS: DOCUSATE SODIUM 100 MG CAP PO SCH (08:48)
[2017-09-26 12:00] VITALS: BP 142/58; PULSE 63; RESP 18; TEMP 97.8; O2SAT 97
[2017-09-26 16:00] VITALS: BP 115/52; PULSE 72; RESP 18; TEMP 99.5; O2SAT 98
== END 2017-09-26 18:37 | disposition home health service (06) ==
LOC: HSDC 10:32 → HSDI 15:49 → N06B 18:08
PROVIDERS: ADMIT Orthopaedic Surgery Orthopaedic Surgery of the Spine; ATTEND Orthopaedic Surgery Orthopaedic Surgery of the Spine
DX: M48.061 Spinal stenosis, lumbar region without neurogenic claudication (principal); M51.16 Intervertebral disc disorders with radiculopathy, lumbar region; R51 Headache; E66.01 Morbid (severe) obesity due to excess calories; I10 Essential (primary) hypertension; E78.5 Hyperlipidemia, unspecified; I73.9 Peripheral vascular disease, unspecified; K21.9 Gastro-esophageal reflux disease without esophagitis; F32.9 Major depressive disorder, single episode, unspecified
CPT/HCPCS: 00630; 63030; 63035; 72020; 76000; 94150; 96374; 96376; 97162; G0378; J0690; J1100; J1170; J1580; J1885; J2270; J2370; J2405; J2710; J3010; J3370; J7120; J0131

== ENCOUNTER 2017-10-01 14:03 | Emergency (ER) | payer MEDICARE, OTHER ==
[2017-10-01 14:05] VITALS: BP 183/91; PULSE 92; RESP 16; TEMP 97; O2SAT 100
--- NOTE | 2017-10-01 15:28 | PD ---
HPI Chief Complaint: Bleeding Time Seen by Provider: 14:41 Travel History International Travel<30 days: No Contact w/Intl Traveler<30days: No Traveled to known affect area: No History of Present Illness HPI The patient was seen and examined in the presence of the nurse. This patient complains of having some fluid leaking from her surgical incision. She had a home health nurse visited her today that noticed a leak and her surgeon Dr. Booker recommended she come here. She is not having any acute fever or pain or injury. Symptoms severity is mild. No alleviating factors. No exacerbating factors. Duration one day PFSH Past Medical History Arthritis: Yes Asthma: No Autoimmune Disease: No Blood Disorders: No Anxiety: Yes Depression: Yes Cancer: No Cardiovascular Problems: Yes COPD: No Cerebrovascular Accident: Yes (2014- NO DEFICITS ) Diabetes: No Diminished Hearing: No Endocrine: No GERD: Yes Glaucoma: No Genitourinary: Yes (FREQUENCY) Hepatitis: No Hiatal Hernia: No Hypertension: Yes Immune Disorder: No Musculoskeletal: Yes (ARTHRITIS) Neurologic: Yes (STROKE) Psychiatric: No Reproductive: No Respiratory: No Immunizations Current: Yes Pancreatitis: Yes Thyroid Disease: No Ulcer: Yes Tetanus Vaccination: > 5 Years Influenza Vaccination: No PNEUMOCCOCAL Vaccine (Year): 2 ?: Not Menopausal: Yes Past Surgical History Abdominal Surgery: Yes (GASTRIC BYPASS WITH REVERSAL, ) AICD: No Appendectomy: Yes Body Medical Devices: RIGHT IMPLANTED PORT Cardiac Surgery: No Section: Yes Cholecystectomy: Yes Ear Surgery: No Endocrine Surgery: No Eye Surgery: No Genitourinary Surgery: No Gynecologic Surgery: Yes (C/SECTION X 2, HYSTERECTOMY) Hysterectomy: Yes Neurologic Surgery: No Oral Surgery: Yes (T&A) Pacemaker: No Thoracic Surgery: Yes (LUMP REMOVED RIGHT BREAST) Tonsillectomy: Yes Other Surgery: Yes (RIGHT INFUSAFORT) Social History Alcohol Use: No Tobacco Use: Yes Substance Use: No Allergies-Medications (Allergen,Severity, Reaction): Coded Allergies: *MDRO Multi-Drug Resistant Organism (Verified Adverse Reaction, Unknown, ) 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; (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 Reported Meds & Prescriptions Reported Meds & Active Scripts Active [place] (Hydrocodone-Acetaminophen) 7.5-325 mg Tab 1-2 Tab PO Q6H PRN Walker with Front Wheels (Device) 1 Mis Mis Ea .ROUTE DIRECTED Reported Pravastatin 40 Mg Tab 40 Mg PO DAILY Omeprazole 20 Mg Tab 20 Mg PO DAILY Review of Systems General / Constitutional: No: Fever Eyes: No: Visual changes HENT: No: Headaches Cardiovascular: No: Chest Pain or Discomfort Respiratory: No: Shortness of Breath Gastrointestinal: No: Abdominal Pain Genitourinary: No: Dysuria Musculoskeletal: No: Pain Skin: No Rash Neurologic: No: Weakness Psychiatric: No: Depression Endocrine: No: Polydipsia Hematologic/Lymphatic: No: Easy Bruising Physical Exam Narrative GENERAL: Morbidly obese well-developed patient in no apparent distress. SKIN: Focused skin assessment reveals no rash and nodules. Skin is Warm and dry. HEAD: Atraumatic. Normocephalic. EYES: Pupils equal and round. No scleral icterus. No injection or drainage. ENT: No nasal bleeding or discharge. Mucous membranes pink and moist. NECK: Trachea midline. No JVD. CARDIOVASCULAR: Regular rate and rhythm. No murmur appreciated. RESPIRATORY: No accessory muscle use. Clear to auscultation. Breath sounds equal bilaterally. GASTROINTESTINAL: Abdomen soft, non-tender, nondistended. Hepatic and splenic margins not palpable. MUSCULOSKELETAL: No obvious deformities. No clubbing. No cyanosis. No edema. Examination the back reveals that she has a sutured midline low back incision. There is no sign of infection or dehiscence. There is a leak of pink tinged serous fluid. It leaks between the sutures at a place one third of the way from the top of the incision. NEUROLOGICAL: Awake and alert. No obvious cranial nerve deficits. Motor grossly within normal limits. Normal speech. PSYCHIATRIC: Appropriate mood and affect; insight and judgment normal. Data Data Last Documented VS Vital Signs Date Time Temp Pulse Resp B/P (MAP) Pulse Ox O2 Delivery O2 Flow Rate FiO2 10/01/17 15:48 70 18 195/99 (131) 100 10/01/17 14:05 97.0 Orders Orders Clonidine (Catapres) (10/01/17 16:15) [facility] Medical Decision Making Medical Screen Exam Complete: Yes Emergency Medical Condition: Yes Medical Record Reviewed: Yes Differential Diagnosis Dural leak, seroma, hematoma Narrative Course I have reviewed the patient's electronic medical record. Reviewed the operative note from about a week ago Patient did have a dural leak that was repaired I have spoken to and examined the patient. I placed a call to surgeon Dr. Booker to discuss. The surgeon came down to the ER and evaluated the patient. He would like to discharge her from a surgical standpoint asked me to treat her blood pressure. I gave her dose of clonidine 45 minutes later it is 170s systolic compared to 190s systolic She is advised to check and recorded daily and be compliant with her medication Diagnosis Primary Impression: Drainage of transplant surgical wound without infection Additional Impression: Accelerated hypertension Additional Instructions: The patient was advised to follow up with their physician and return if they worsen. Check and record blood pressure daily Med/Other Pt SpecificInfo: Other Disposition: 01 DISCHARGE HOME Condition: Stable Gigi Navarrete MD Oct 01, 2017 15:28
[2017-10-01 15:48] VITALS: BP 195/99; PULSE 70; RESP 18; O2SAT 100
--- NOTE | 2017-10-01 16:11 | PD.ORT.PN ---
Subjective Subjective Remarks pt has no complaints of headache currently, no back pain, no pain from back into the legs, does complain of left knee stiffness pt doing much better now, states she was doing well but had increasing headache today with high blood pressure when home health nurse at house Objective Vitals Vital Signs Date Time Temp Pulse Resp B/P (MAP) Pulse Ox O2 Delivery O2 Flow Rate FiO2 10/01/17 15:48 70 18 195/99 (131) 100 10/01/17 14:05 97.0 92 16 183/91 (121) 100 Objective Remarks seen with sister and my PA, Shannan, in room lumbar incision healing well, mild, clear drainage from distal incision, no erythema good motor strength to lower extremities Assessment & Plan Assessment and Plan spoke with ED doc concerning her blood pressure patient would like to go home today was advised continued bedrest with head of bed flat counseled patient on importance of smoking cessation and avoiding any products with nicotine Doc choice [facility] to continue wound care and dressing changes f/u as scheduled in office in 8 days Dylan Martin MD Oct 01, 2017 16:11
[2017-10-01] MEDS ORDERED: cloNIDine HCL 0.2 MG TAB PO ONE (16:15)
== END 2017-10-01 17:13 | disposition home or self-care (01) ==
LOC: NEPD 14:03
DX: T81.89XA Other complications of procedures, not elsewhere classified, initial encounter (principal); I10 Essential (primary) hypertension; M19.90 Unspecified osteoarthritis, unspecified site; F32.9 Major depressive disorder, single episode, unspecified; Z86.73 Personal history of transient ischemic attack (TIA), and cerebral infarction without residual deficits; Z72.0 Tobacco use; Z79.899 Other long term (current) drug therapy
CPT/HCPCS: 99281

== ENCOUNTER 2017-10-05 10:37 | Inpatient (IN) | payer MEDICARE, OTHER ==
[~2017-10-05] VITALS: Ht 170.2 cm; Wt 143.9 kg
[2017-10-05] MEDS: DEXTROSE 5%-LACTATED RING INJ 1,000 ML IV SCH ×2 (12:00→22:53)
[2017-10-05] MEDS ORDERED: PHENYLEPH/NS 1000 MCG/10 ML SYR IV ONE (12:00)
[2017-10-05] MEDS ORDERED: LIDOCAINE HCL 1% PF 5 ML SYRINGE OTHER ONE (12:00)
[2017-10-05] MEDS ORDERED: SODIUM CHLORID 0.9% 500 ML IV PRN (12:00)
[2017-10-05] MEDS ORDERED: LACTATED RINGER'S 1000 ML IV PRN (12:00)
[2017-10-05] MEDS ORDERED: POVIDONE IODINE 5% (ANTISEPSIS KIT) 4 APPLICATIONS EACH NARE PRN (12:00)
[2017-10-05] MEDS ORDERED: METOPROLOL TARTRATE 25 MG TAB PO PRN (12:00)
[2017-10-05] MEDS ORDERED: CHLORHEXIDINE GLUCONATE 4% SOLN 120 ML BTL TOPICAL SCH (12:00)
[2017-10-05] MEDS ORDERED: ONDANSETRON HCL 4 MG/2 ML VIAL IV PUSH ONE (12:00)
[2017-10-05] MEDS ORDERED: CHLORHEXIDINE GLUCONATE 2 % 1 PACK (2 CLOTHS) TOPICAL PRN (12:00)
[2017-10-05] MEDS ORDERED: PROPOFOL 200 MG/20 ML AMP IV ONE (12:00)
[2017-10-05] MEDS ORDERED: ROCURONIUM INJ 50 MG/5 ML SYRINGE IV PUSH ONE (12:00)
[2017-10-05] MEDS ORDERED: DEXAMETHASONE SOD PHOS 4 MG/ML VIAL IV ONE (12:00)
[2017-10-05 12:07] LABS: BILIRUBIN, URINE NEG (NEG); BLOOD, URINE SMALL (NEG); GLUCOSE,URINE NEG (NEG); KETONE, URINE NEG (NEG); NITRITE,URINE NEG (NEG); SQUAMOUS EPITHELIAL CELL URINE 1 /hpf (0-5); URINE COLOR YELLOW (YELLW/STRAW); URINE LEUKOCYTE ESTERASE NEG (NEG)
[2017-10-05] MEDS ORDERED: ACETAMINOPHEN 1000 MG/100 ML 100 ML IV ONE (12:16)
[2017-10-05] MEDS ORDERED: SUGAMMADEX SODIUM 200 MG/2 ML VIAL IV PUSH ONE (12:30)
[2017-10-05] MEDS ORDERED: GENTAMICIN SULFATE 80 MG/2 ML VIAL ONE (12:43)
[2017-10-05] MEDS ORDERED: BUPIVACAINE/EPINEPHRINE 0.25% 50 ML VIAL ONE (12:43)
[2017-10-05 12:57] LABS: BASOPHIL # 0.1 TH/MM3 (0-0.2); BASOPHIL % 0.4 % (0.0-2.0); EOSINOPHIL # 0.1 TH/MM3 (0-0.4); EOSINOPHIL % 0.5 % (0.0-4.0); HEMATOCRIT 30.2 % (35.0-46.0); HEMOGLOBIN 9.5 GM/DL (11.6-15.3); LYMPH % 9.5 % (9.0-44.0); LYMPHOCYTE # 1.5 TH/MM3 (1.0-4.8); MEAN CELL VOLUME 88.7 FL (80.0-100.0); MEAN CORPUSCULAR HEMOGLOBIN 27.9 PG (27.0-34.0); MEAN CORPUSCULAR HGB CONC 31.4 % (32.0-36.0); MEAN PLATELET VOLUME 7.3 FL (7.0-11.0); MONO % 7.3 % (0.0-8.0); MONOCYTE # 1.2 TH/MM3 (0-0.9); NEUT % 82.3 % (16.0-70.0); PLATELET COUNT 303 TH/MM3 (150-450); RED CELL DISTRIBUTION WIDTH 17.7 % (11.6-17.2); WHITE BLOOD COUNT 15.8 TH/MM3 (4.0-11.0)
[2017-10-05 13:04] LABS: INTERNATIONAL NORMALIZED RATIO 1.1 RATIO; PROTHROMBIN TIME - PATIENT 10.9 SEC (9.8-11.6)
[2017-10-05 13:26] LABS: ALBUMIN 3.1 GM/DL (3.4-5.0); ALT (GPT) 15 U/L (10-53); AST (GOT) 13 U/L (15-37); BICARBONATE 28.4 MEQ/L (21.0-32.0); BLOOD UREA NITROGEN 16 MG/DL (7-18); CALCIUM 8.8 MG/DL (8.5-10.1); CHLORIDE 104 MEQ/L (98-107); CREATININE 1.14 MG/DL (0.50-1.00); GLOMERULAR FILTRATION RATE 59 ML/MIN (>89); GLUCOSE,RANDOM 96 MG/DL (74-106); SODIUM (NA) 137 MEQ/L (136-145)
[2017-10-05 13:27] LABS: ALKALINE PHOSPHATASE 106 U/L (45-117); TOTAL BILIRUBIN ADULT 0.8 MG/DL (0.2-1.0); TOTAL PROTEIN 7.9 GM/DL (6.4-8.2)
[2017-10-05] MEDS ORDERED: VANCOMYCIN HCL 1000 MG VIAL ONE (14:52)
[2017-10-05] MEDS ORDERED: ceFAZolin INJ 1,000 MG VIAL ONE (14:52)
[2017-10-05] MEDS ORDERED: DO NOT ADM ANY ANTICOAGULANT DRUGS PRN (16:40)
[2017-10-05] MEDS ORDERED: *MEPERIDINE 25 MG INJ VIAL PERIprocedural Use ONLY ONE (16:47)
[2017-10-05] MEDS ORDERED: *morphine SULFATE 10 MG/ML PERIprocedure ONLY ONE ×2 (16:49→16:56)
[2017-10-05] MEDS ORDERED: NALOXONE HCL 0.4 MG/ML AMP IV PUSH PRN (17:00)
[2017-10-05] MEDS ORDERED: ONDANSETRON HCL 4 MG/2 ML VIAL IV PUSH PRN (17:00)
[2017-10-05] MEDS ORDERED: ALUMINUM/MAGNESIUM/SIMETH 30 ML CUP PO PRN (17:00)
[2017-10-05] MEDS ORDERED: HYDROmorphone HCL PF 2 MG/ML VIAL ONE (17:05)
[2017-10-05] MEDS ORDERED: SOD PHOSPHATE/SOD BIPHOSPHATE (ADULT) ENEMA 133ML PR PRN (17:15)
[2017-10-05] MEDS ORDERED: BISACODYL 10 MG SUPP RECTAL PRN (17:15)
[2017-10-05 17:45] VITALS: BP 130/80; PULSE 77; RESP 17; TEMP 97; O2SAT 91
[2017-10-05] MEDS ORDERED: Post-op Orders (for Pharmacy) XX ONE (18:00)
[2017-10-05] MEDS ORDERED: MORPHINE SULFATE 4 MG/ML INJ ONE (19:00)
[2017-10-05 19:54] VITALS: O2SAT 91
[2017-10-05 20:00] VITALS: BP 131/77; PULSE 77; RESP 20; TEMP 97; O2SAT 96
[2017-10-05] MEDS: ACETAMINOPHEN/HYDROcodone 325 MG/7.5 MG TAB PO PRN (22:43)
[2017-10-06] VITALS (7 sets, daily range): BP systolic 103–142; BP diastolic 54–84; PULSE 65–97; RESP 17–20; TEMP 96.1–99.3; O2SAT 93–98
[2017-10-06] MEDS: MORPHINE SULFATE 4 MG/ML INJ IV PUSH PRN ×6 (00:09→22:31)
[2017-10-06] MEDS: ACETAMINOPHEN/HYDROcodone 325 MG/7.5 MG TAB PO PRN ×4 (05:58→21:13)
[2017-10-06] MEDS: PRAVASTATIN SOD 40 MG TAB PO SCH (08:44)
[2017-10-06] MEDS: MULTIVITAMINS/MINERALS THERAPEUTIC TAB PO SCH ×2 (08:44→21:13)
[2017-10-06] MEDS: PANTOPRAZOLE SOD 20 MG DELAYED RELEASE TAB PO SCH (08:44)
[2017-10-06] MEDS: DEXTROSE 5%-LACTATED RING INJ 1,000 ML IV SCH ×3 (08:45→22:31)
--- NOTE | 2017-10-06 08:58 | PD.CONS ---
HPI Service [facility] Consult Requested By Reason for Consult medical management. Primary Care Physician Cole Villa MD Diagnoses: History of Present Illness patient is a 61 y/o female with history of spinal stenosis who underwent L4-5 laminectomy about two weeks ago , underwent I/D of the deep abscess and redo Laminectomy yesterday. at the time of my evaluation she was in no acute distress but complaining of moderate to severe back pain. she denies any chest pain, abdominal pain, dizziness,nausea. d/w the RN at the bedside. Review of Systems Constitutional: DENIES: Fever, Weight loss, Chills, Night Sweats Eyes: DENIES: Blurred vision, Diplopia, Vision loss, Double Vision Ears, nose, mouth, throat: DENIES: Tinnitus, Vertigo, Throat pain, Epistaxis Respiratory: DENIES: Apneas, Cough, Snoring, Wheezing, Hemoptysis, Sputum production, Shortness of breath Cardiovascular: DENIES: Chest pain, Palpitations, Syncope, Dyspnea on Exertion , PND, Lower Extremity Edema, Orthopnea, Claudication Gastrointestinal: DENIES: Abdominal pain, Black stools, Bloody stools, Constipation, Diarrhea, Nausea, Vomiting, Difficulty Swallowing, Anorexia Genitourinary: DENIES: Urinary frequency, Urgency, Hematuria, Dysuria Musculoskeletal: COMPLAINS OF: Back pain, DENIES: Joint pain, Muscle aches, Stiffness, Joint Swelling Integumentary: DENIES: Rash Neurologic: DENIES: Abnormal gait, Headache, Localized weakness, Paresthesias, Seizures, Speech Problems, Tremor, Poor Balance Psychiatric: DENIES: Anxiety, Confusion, Mood changes, Depression, Hallucinations, Agitation, Suicidal Ideation, Homicidal Ideation, Delusions Past Family Social History Allergies: Coded Allergies: *MDRO Multi-Drug Resistant Organism (Verified Adverse Reaction, Unknown, ) 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 Past Surgical History recent laminectomy/knee replacement/appendectomy/gastric bypass. Reported Medications omeprazole/norco/prevastatin Active Ordered Medications Inpatient Medications Acetaminophen/ Hydrocodone Bitart ([place] 7.5-325 Mg) 2 tab Q6H PRN PO PAIN SCALE 6 TO 10 Last administered on 10/06/17at 05:58; Start 10/05/17 at 17:00 Al Hydrox/Mg Hydrox/Simethicone (Mag-Al Plus Susp Liq) 30 ml Q6H PRN PO INDIGESTION; Start 10/05/17 at 17:00 Bisacodyl (Dulcolax Supp) 10 mg DAILY PRN RECTAL CONSTIPATION; Start 10/05/17 at 17:15 Cefazolin Sodium 1000 mg/Sodium Chloride 100 ml @ 200 mls/hr Q8H IV Last administered on 10/05/17at 22:51; Start 10/06/17 at 00:00; Stop 10/06/17 at 16:29 Chlorhexidine Gluconate (Chlorhexidine 2% Cloth) 3 pack RN ANTE PARTUM PRN TOPICAL SEE LABEL COMMENTS; Start 10/05/17 at 12:00; Stop 10/08/17 at 11:59 Chlorhexidine Gluconate (Hibiclens 4% Top Soln) 1 applic ONCE TOPICAL ; Start at 12:00; Stop 10/08/17 at 11:59 Dextrose/Lactated Ringer's 1,000 ml @ 150 mls/hr Q6H40M IV Last administered on 10/05/17at 22:53; Start 10/05/17 at 12:00 Docusate Sodium (Colace) 100 mg BID PO ; Start 10/06/17 at 21:00 Heparin Sodium (Porcine) (Heparin Central Flush) 500 units UNSCH IV FLUSH ; Start 10/05/17 at 14:00 Lactated Ringer's 1,000 ml @ 30 mls/hr Q24H PRN IV SEE LABEL COMMENTS; Start at 12:00; Stop 10/08/17 at 11:59 Metoprolol Tartrate (Lopressor) 25 mg RN ANTE PARTUM PRN PO SEE LABEL COMMENTS; Start 10/05/17 at 12:00; Stop 10/08/17 at 11:59 Miscellaneous Information ALL NURSING DEPARTME... UNSCH PRN .XX SEE LABEL COMMENTS; Start 10/05/17 at 16:40; Stop 10/06/17 at 16:39 Miscellaneous Information (Post-op Orders (for Pharmacy)) STAT ONCE XX ; Start 10/05/17 at 18:00; Stop 10/05/17 at 18:01; Status DC Morphine Sulfate (Morphine Inj) 5 mg Q3H PRN IV PUSH BREAKTHROUGH PAIN Last administered on 10/06/17at 07:11; Start 10/05/17 at 17:00 Multivitamins/ Minerals Therapeutic (Theragran M Tab) 1 tab BID PO ; Start 10/06 at 09:00; Stop 12/05/17 at 08:59 Naloxone HCl (Narcan Inj) 0.4 mg UNSCH PRN IV PUSH RESPIRATORY RATE LESS THAN 10; Start 10/05/17 at 17:00 Ondansetron HCl (Zofran Inj) 4 mg Q6H PRN IV PUSH NAUSEA OR VOMITING; Start at 17:00 Pantoprazole Sodium (Protonix) 20 mg DAILY PO ; Start 10/06/17 at 09:00 Povidone Iodine (Betadine 5% Antisepsis Kit) 1 applic RN ANTE PARTUM PRN EACH NARE SEE LABEL COMMENTS; Start 10/05/17 at 12:00; Stop 10/08/17 at 11:59 Pravastatin Sodium (Pravachol) 40 mg DAILY PO ; Start 10/06/17 at 09:00 Sodium Biphosphate/ Sodium Phosphate (Fleets Enema (Adult)) 133 ml DAILY PRN DE CONSTIPATION; Start 10/05/17 at 17:15 Sodium Chloride (NS Flush) 5 ml UNSCH PRN IV FLUSH SEE PROTOCOL TABLE; Start at 14:00 Zolpidem Tartrate (Ambien) 5 mg HS PRN PO SLEEP; Start 10/05/17 at 21:00 Social History smokes less than half a pack a day.doesn't drink. Physical Exam Vital Signs Vital Signs Date Time Temp Pulse Resp B/P (MAP) Pulse Ox O2 Delivery O2 Flow Rate FiO2 10/06/17 08:00 98.7 73 20 115/57 (76) 94 10/06/17 04:23 96.1 70 18 119/59 (79) 98 10/06/17 00:17 97.5 74 17 142/84 (103) 96 10/05/17 20:00 97.0 77 20 131/77 (95) 96 10/05/17 19:54 91 Nasal Cannula 3.00 10/05/17 19:44 96 Nasal Cannula 2.00 10/05/17 17:45 97.0 77 17 130/80 (97) 91 10/05/17 17:09 78 19 112/59 (76) 93 Nasal Cannula 4 10/05/17 16:50 79 19 154/86 (108) 96 Nasal Cannula 2 10/05/17 16:41 97.5 84 19 147/105 (119) 96 Nasal Cannula 2 10/05/17 11:48 99.4 77 16 137/70 (92) 96 Physical Exam GENERAL: This is a well-nourished, well-developed patient, in no apparent distress. SKIN: No rashes, ecchymoses or lesions. Cool and dry. HEAD: Atraumatic. Normocephalic. No temporal or scalp tenderness. EYES: Pupils equal round and reactive. Extraocular motions intact. No scleral icterus. No injection or drainage. ENT: Nose without bleeding, purulent drainage or septal hematoma. Throat without erythema, tonsillar hypertrophy or exudate. Uvula midline. Airway patent. NECK: Trachea midline. No JVD or lymphadenopathy. Supple, nontender, no meningeal signs. CARDIOVASCULAR: Regular rate and rhythm without murmurs, gallops, or rubs. RESPIRATORY: Clear to auscultation. Breath sounds equal bilaterally. No wheezes , rales, or rhonchi. GASTROINTESTINAL: Abdomen soft, non-tender, nondistended. No hepato-splenomegaly , or palpable masses. No guarding. MUSCULOSKELETAL: Extremities without clubbing, cyanosis, or edema. No joint tenderness, effusion, or edema noted. No calf tenderness. Negative Homans sign bilaterally. NEUROLOGICAL: Awake and alert. Cranial nerves II through XII intact. Motor and sensory grossly within normal limits. Five out of 5 muscle strength in all muscle groups. Normal speech. Laboratory Laboratory Tests Test 10/05/17 11:50 10/05/17 12:35 Urine Color YELLOW Urine Turbidity CLEAR Urine pH 6.0 Urine Specific [place] 1.025 Urine Protein 30 Urine Glucose (UA) NEG Urine Ketones NEG Urine Occult Blood SMALL Urine Nitrite NEG Urine Bilirubin NEG Urine Urobilinogen 4.0 Urine Leukocyte Esterase NEG Urine RBC 7 Urine WBC 1 Urine Squamous Epithelial Cells 1 Microscopic Urinalysis Comment CATH-CULT NOT IND White Blood Count 15.8 Red Blood Count 3.40 Hemoglobin 9.5 Hematocrit 30.2 Mean Corpuscular Volume 88.7 Mean Corpuscular Hemoglobin 27.9 Mean Corpuscular Hemoglobin Concent 31.4 Red Cell Distribution Width 17.7 Platelet Count 303 Mean Platelet Volume 7.3 Neutrophils (%) (Auto) 82.3 Lymphocytes (%) (Auto) 9.5 Monocytes (%) (Auto) 7.3 Eosinophils (%) (Auto) 0.5 Basophils (%) (Auto) 0.4 Neutrophils # (Auto) 13.0 Lymphocytes # (Auto) 1.5 Monocytes # (Auto) 1.2 Eosinophils # (Auto) 0.1 Basophils # (Auto) 0.1 CBC Comment DIFF FINAL Differential Comment Prothrombin Time 10.9 Prothromb Time International Ratio 1.1 Blood Urea Nitrogen 16 Creatinine 1.14 Random Glucose 96 Total Protein 7.9 Albumin 3.1 Calcium Level 8.8 Alkaline Phosphatase 106 Aspartate Amino Transf (AST/SGOT) 13 Alanine Aminotransferase (ALT/SGPT) 15 Total Bilirubin 0.8 Sodium Level 137 Potassium Level 4.0 Chloride Level 104 Carbon Dioxide Level 28.4 Anion Gap 5 Estimat Glomerular Filtration Rate 59 Date/Time Source Procedure Growth Status 10/05/17 15:06 Blood Other Aerobic Blood Culture Pending Received 10/05/17 15:06 Blood Other Anaerobic Blood Culture Pending Received 10/05/17 17:15 Wound Other Fungal Smear Pending Received 10/05/17 17:15 Wound Other Fungal Culture Pending Received Result Diagram: 10/05/17 1235 10/05/17 1235 Assessment and Plan Assessment and Plan A/P - lumbar spine abscess- s/p irrigation and debridement and redo laminectomy L4-5 ID consulted; will defer antibiotics to ID- continue pain control and rehab efforts- ortho following.\ follow the cultures. -anemia- chronic- will monitor. -dyslipidemia; resumed statin -DVT prophylaxis; per ortho. thank you for the consult. Discussed Condition With the patient and RN. Isaiah Tripathi MD Oct 06, 2017 08:58
--- NOTE | 2017-10-06 09:20 | PD.ORT.PN ---
Subjective Post Op Day #: 1 Pain Scale: 5 Subjective Remarks The patient is awake and alert and answers questions appropriately. She complains of pain. He states it is similar to her preoperative discomfort. She has no new complaint. Objective Vitals Vital Signs Date Time Temp Pulse Resp B/P (MAP) Pulse Ox O2 Delivery O2 Flow Rate FiO2 10/06/17 08:00 98.7 73 20 115/57 (76) 94 10/06/17 04:23 96.1 70 18 119/59 (79) 98 10/06/17 00:17 97.5 74 17 142/84 (103) 96 10/05/17 20:00 97.0 77 20 131/77 (95) 96 10/05/17 19:54 91 Nasal Cannula 3.00 10/05/17 19:44 96 Nasal Cannula 2.00 10/05/17 17:45 97.0 77 17 130/80 (97) 91 10/05/17 17:09 78 19 112/59 (76) 93 Nasal Cannula 4 10/05/17 16:50 79 19 154/86 (108) 96 Nasal Cannula 2 10/05/17 16:41 97.5 84 19 147/105 (119) 96 Nasal Cannula 2 10/05/17 11:48 99.4 77 16 137/70 (92) 96 I/O 10/05/17 10/05/17 10/05/17 10/06/17 10/06/17 10/06/17 07:00 15:00 23:00 07:00 15:00 23:00 Intake Total 1396 ml 1880 ml 240 ml Output Total 130 ml 1220 ml Balance 1266 ml 660 ml 240 ml Intake Oral 780 ml 240 ml IV Total 396 ml 1100 ml Other 1000 ml Output Urine Total 1200 ml Drainage Total 30 ml 20 ml Estimated Blood Loss 100 ml # Bowel Movements 0 Result Diagram: 10/05/17 1235 10/05/17 1235 Other Results Laboratory Tests Test 10/05/17 12:35 Prothromb Time International Ratio 1.1 RATIO Prothrombin Time 10.9 SEC (9.8-11.6) Objective Remarks Examination is somewhat limited secondary to patient's size and immobility. She does move her toes and ankle freely. She denies calf discomfort. Neurologically no focal deficit. Assessment & Plan Ortho Post Op Day #: 1 Problem List: Assessment and Plan Orthopedic status stable postoperative day #1 I&D lumbar. Awaiting infectious disease consultation for antibiotic management. Patient to remain at bed rest. Miguel Angel Torres MD Oct 06, 2017 09:20
[2017-10-06] MEDS: DOCUSATE SODIUM 100 MG CAP PO SCH ×2 (11:14→21:13)
[2017-10-06] MEDS ORDERED: Vancomycin Consult Pharmacy 1 EA OTHER SCH (13:30)
[2017-10-06] MEDS ORDERED: VANCOMYCIN INJ 2,500 MG in SODIUM CHLORID 0.9% 500 ML INJ 500 ML IV ONE (15:00)
--- NOTE | 2017-10-06 17:43 | MB ---
cc: NEIL BAXTER MD DATE OF CONSULTATION 10/06/[address] Dylan Martin REASON FOR CONSULTATION Lumbar spine abscess. HISTORY OF PRESENT ILLNESS This is a 61-year-old black female who recently underwent lumbar spine surgery. The patient was treated for lumbar spine stenosis. She underwent L4-L5 bilateral decompressive hemilaminectomy along with decompression of nerve root and left side L4-L5 repair of dural leak. The patient was discharged from the hospital on September 26. She started to develop some drainage from the back wound and also pain. She came to the emergency department on October 01. At that time, she was complaining of headache and aches all over her body as well. The incision was felt to be healing well and she was discharged home. The patient developed severe pains and she continued to have drainage from the lower back wound with this drainage saturating her bedding. She was reevaluated and eventually she was taken to surgery and underwent incision and drainage of an abscess in the epidural space. Culture was taken. The culture is pending. Gram stain from the fluid shows gram-positive cocci in pairs and clusters. This consultation is requested for antibiotic treatment. The patient states currently she has pain in the lower back, the back of the neck and also pain on both thigh regions. She states the pain in the thighs radiates down. She denies chills. She is awake and alert. Her temperature is normal. Her white blood cell count is elevated at 15.8. 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 It has been used for blood draws and administration of medications. She has not had to use the Tsnlje-H-Xbnt after surgery while she was at home. PAST MEDICAL HISTORY 1. Dyslipidemia, 2. Status post laminectomy for spinal stenosis 3. Appendectomy, 4. Gastric bypass 5. Knee replacement 6. Gastroesophageal reflux disease, 7. Hysterectomy. ALLERGIES NO KNOWN DRUG ALLERGIES. MEDICATIONS 1. Cefazolin given perioperative 2. [place] 7.5. 3. Protonix. 4. Pravachol 5. Theragran. 6. Colace 7. Dose of vancomycin was given on 10/05. SOCIAL HISTORY Positive tobacco. No alcohol or illicit drugs. FAMILY HISTORY Noncontributory. REVIEW OF SYSTEMS Significant for body aches, back pain, posterior neck pain. Otherwise negative on 10-point review. PHYSICAL EXAMINATION GENERAL: This is a moderately obese female who is awake and alert and in no acute distress. VITAL SIGNS: Temperature 97.8, BP is 115/57, respirations 20, heart rate 73. HEENT: Head is atraumatic. Extraocular movements grossly intact. No icterus. Oropharynx moist mucosa without lesions. NECK: Supple without adenopathy. LUNGS: Clear to auscultation. HEART: Regular S1, S2 without murmurs, rubs or gallops. ABDOMEN: Bowel sounds present, soft, no tenderness appreciated. RECTAL: Not performed. EXTREMITIES: No clubbing or cyanosis or edema. SKIN: No rash. NEUROLOGIC: No gross focal findings. PSYCHIATRIC: The patient is calm and cooperative. LABORATORY DATA WBC 15.8, platelets 303, 82% neutrophils, hemoglobin 9.5. Creatinine 1.14, estimated GFR 59, sodium 137. Liver function tests normal. IMPRESSION 1. Lumbar epidural abscess 2. Postoperative wound infection of the lumbar spine 3. Status post lumbar laminectomy 4. Cultures pending. RECOMMENDATIONS 1. Begin vancomycin intravenous in light of the gram stain which shows gram-positive cocci in pairs and clusters. 2. Monitor wound cultures 3. Monitor the blood culture 4. Follow the white blood cell count which is elevated 5. Monitor the clinical response to antibiotic treatment. Thank you for this consultation. The cultures will be monitored and further recommendations will be given upon followup. Neil Baxter MD FD/ /1:28 PM /5:26 PM MTDD
[2017-10-06] MEDS ORDERED: DOCUSATE SODIUM 100 MG CAP PO SCH (21:00)
[2017-10-07 00:21] VITALS: BP 111/62; PULSE 66; RESP 18; TEMP 98.9; O2SAT 93
[2017-10-07] MEDS: ACETAMINOPHEN/HYDROcodone 325 MG/7.5 MG TAB PO PRN ×5 (02:15→22:27)
[2017-10-07] MEDS: MORPHINE SULFATE 4 MG/ML INJ IV PUSH PRN ×5 (03:16→21:26)
[2017-10-07] MEDS: DEXTROSE 5%-LACTATED RING INJ 1,000 ML IV SCH ×4 (05:45→22:27)
--- NOTE | 2017-10-07 07:06 | PD.ORT.PN ---
Subjective Post Op Day #: 2 Pain Scale: 10 Subjective Remarks The patient is awake and alert and answers questions appropriately. She appears more coherent today. She complains of pain. She states it is similar to her preoperative discomfort. She has no new complaint. She has been seen by infectious disease. Gram stain ankles are reveal MRSA. She currently is on vancomycin. Objective Vitals Vital Signs Date Time Temp Pulse Resp B/P (MAP) Pulse Ox O2 Delivery O2 Flow Rate FiO2 10/07/17 03:24 22 10/07/17 03:24 22 10/07/17 00:21 98.9 66 18 111/62 (78) 93 10/06/17 20:54 99.3 71 18 124/61 (82) 93 10/06/17 20:28 95 Nasal Cannula 3.00 10/06/17 20:00 93 Nasal Cannula 2.00 10/06/17 16:00 97.8 97 20 103/54 (70) 96 10/06/17 12:00 97.8 65 20 127/65 (85) 95 10/06/17 08:00 98.7 73 20 115/57 (76) 94 I/O 10/06/17 10/06/17 10/06/17 10/07/17 10/07/17 10/07/17 07:00 15:00 23:00 07:00 15:00 23:00 Intake Total 1880 ml 240 ml 1760 ml 1240 ml Output Total 1220 ml 1215 ml 1000 ml Balance 660 ml 240 ml 545 ml 240 ml Intake Oral 780 ml 240 ml 760 ml 240 ml IV Total 1100 ml 1000 ml 1000 ml Output Urine Total 1200 ml 1200 ml 1000 ml Drainage Total 20 ml 15 ml # Bowel Movements 0 0 Result Diagram: 10/05/17 1235 10/05/17 1235 Objective Remarks Examination is somewhat limited secondary to patient's size and immobility. She has a minimally restricted range of motion the cervical spine with discomfort at extremes. She does move her toes and ankle freely. She denies calf discomfort. Neurologically no focal deficit. Assessment & Plan Assessment and Plan Orthopedic status stable postoperative day #2 I&D lumbar. Appreciate ID input. Patient to remain at bed rest. Will try gabapentin to assist with pain management. Miguel Angel Torres MD Oct 07, 2017 07:06
[2017-10-07] MEDS: PRAVASTATIN SOD 40 MG TAB PO SCH (07:44)
[2017-10-07] MEDS: PANTOPRAZOLE SOD 20 MG DELAYED RELEASE TAB PO SCH (07:44)
[2017-10-07] MEDS: MULTIVITAMINS/MINERALS THERAPEUTIC TAB PO SCH ×2 (07:44→20:21)
[2017-10-07] MEDS: DOCUSATE SODIUM 100 MG CAP PO SCH ×2 (07:44→20:21)
[2017-10-07] MEDS: GABAPENTIN 300 MG CAP PO SCH ×3 (07:44→16:13)
[2017-10-07 08:00] VITALS: BP 122/63; PULSE 69; RESP 20; TEMP 98.6; O2SAT 95
--- NOTE | 2017-10-07 09:45 | HHI.PR ---
Subjective Remarks in no acute distress. remains afebrile. pain still not well controlled. d/w the RN. Objective Vitals Vital Signs Date Time Temp Pulse Resp B/P (MAP) Pulse Ox O2 Delivery O2 Flow Rate FiO2 10/07/17 08:00 98.6 69 20 122/63 (82) 95 10/07/17 03:24 22 10/07/17 03:24 22 10/07/17 00:21 98.9 66 18 111/62 (78) 93 10/06/17 20:54 99.3 71 18 124/61 (82) 93 10/06/17 20:28 95 Nasal Cannula 3.00 10/06/17 20:00 93 Nasal Cannula 2.00 10/06/17 16:00 97.8 97 20 103/54 (70) 96 10/06/17 12:00 97.8 65 20 127/65 (85) 95 I/O 10/06/17 10/06/17 10/06/17 10/07/17 10/07/17 10/07/17 07:00 15:00 23:00 07:00 15:00 23:00 Intake Total 1880 ml 240 ml 1760 ml 1240 ml 120 ml Output Total 1220 ml 1215 ml 1030 ml Balance 660 ml 240 ml 545 ml 210 ml 120 ml Intake Oral 780 ml 240 ml 760 ml 240 ml 120 ml IV Total 1100 ml 1000 ml 1000 ml Output Urine Total 1200 ml 1200 ml 1000 ml Drainage Total 20 ml 15 ml 30 ml # Bowel Movements 0 0 Result Diagram: 10/05/17 1235 10/05/17 1235 Objective Remarks GENERAL: This is a well-nourished, well-developed patient, in no apparent distress. CARDIOVASCULAR: Regular rate and regular rhythm without murmurs, gallops, or rubs. RESPIRATORY: Clear to auscultation. Breath sounds equal bilaterally. No wheezes , rales, or rhonchi. GASTROINTESTINAL: Abdomen soft, non-tender, nondistended. Normal, active bowel sounds MUSCULOSKELETAL: Extremities without clubbing, cyanosis, or edema. NEURO: Alert & Oriented x4 to person, place, time, situation. Moves all ext x4 Medications and IVs Inpatient Medications Acetaminophen/ Hydrocodone Bitart ([place] 7.5-325 Mg) 2 tab Q4HR PRN PO PAIN SCALE 6 TO 10 Last administered on 10/07/17at 06:29; Start 10/06/17 at 09:00 Al Hydrox/Mg Hydrox/Simethicone (Mag-Al Plus Susp Liq) 30 ml Q6H PRN PO INDIGESTION; Start 10/05/17 at 17:00 Bisacodyl (Dulcolax Supp) 10 mg DAILY PRN RECTAL CONSTIPATION; Start 10/05/17 at 17:15 Cefazolin Sodium 1000 mg/Sodium Chloride 100 ml @ 200 mls/hr Q8H IV Last administered on 10/06/17at 17:17; Start 10/06/17 at 00:00; Stop 10/06/17 at 16:29 ; Status DC Chlorhexidine Gluconate (Chlorhexidine 2% Cloth) 3 pack PUBLIC ADDRESS SYSTEM INSTALLER PRN TOPICAL SEE LABEL COMMENTS; Start 10/05/17 at 12:00; Stop 10/08/17 at 11:59 Chlorhexidine Gluconate (Hibiclens 4% Top Soln) 1 applic ONCE TOPICAL ; Start at 12:00; Stop 10/08/17 at 11:59 Dextrose/Lactated Ringer's 1,000 ml @ 150 mls/hr Q6H40M IV Last administered on 10/07/17at 05:45; Start 10/05/17 at 12:00 Docusate Sodium (Colace) 100 mg BID PO Last administered on 10/07/17at 07:44; Start 10/06/17 at 09:30 Gabapentin (Neurontin) 300 mg TID PO Last administered on 10/07/17at 07:44; Start 10/07/17 at 09:00 Heparin Sodium (Porcine) (Heparin Central Flush) 500 units UNSCH IV FLUSH ; Start 10/05/17 at 14:00 Lactated Ringer's 1,000 ml @ 30 mls/hr Q24H PRN IV SEE LABEL COMMENTS; Start at 12:00; Stop 10/08/17 at 11:59 Metoprolol Tartrate (Lopressor) 25 mg PUBLIC ADDRESS SYSTEM INSTALLER PRN PO SEE LABEL COMMENTS; Start 10/05/17 at 12:00; Stop 10/08/17 at 11:59 Miscellaneous Information ALL NURSING DEPARTME... UNSCH PRN .XX SEE LABEL COMMENTS; Start 10/05/17 at 16:40; Stop 10/06/17 at 16:39; Status DC Miscellaneous Information (Post-op Orders (for Pharmacy)) STAT ONCE XX ; Start 10/05/17 at 18:00; Stop 10/05/17 at 18:01; Status DC Morphine Sulfate (Morphine Inj) 5 mg Q3H PRN IV PUSH BREAKTHROUGH PAIN Last administered on 10/07/17at 07:44; Start 10/05/17 at 17:00 Multivitamins/ Minerals Therapeutic (Theragran M Tab) 1 tab BID PO Last administered on 10/07/17at 07:44; Start 10/06/17 at 09:00; Stop 12/05/17 at 08:59 Naloxone HCl (Narcan Inj) 0.4 mg UNSCH PRN IV PUSH RESPIRATORY RATE LESS THAN 10; Start 10/05/17 at 17:00 Ondansetron HCl (Zofran Inj) 4 mg Q6H PRN IV PUSH NAUSEA OR VOMITING; Start at 17:00 Pantoprazole Sodium (Protonix) 20 mg DAILY PO Last administered on 10/07/17at 07 :44; Start 10/06/17 at 09:00 Pharmacy Profile Note 0 ml @ 0 mls/hr UNSCH OTHER ; Start 10/06/17 at 13:30 Povidone Iodine (Betadine 5% Antisepsis Kit) 1 applic PUBLIC ADDRESS SYSTEM INSTALLER PRN EACH NARE SEE LABEL COMMENTS; Start 10/05/17 at 12:00; Stop 10/08/17 at 11:59 Pravastatin Sodium (Pravachol) 40 mg DAILY PO Last administered on 10/07/17at 07 :44; Start 10/06/17 at 09:00 Sodium Biphosphate/ Sodium Phosphate (Fleets Enema (Adult)) 133 ml DAILY PRN [place] CONSTIPATION; Start 10/05/17 at 17:15 Sodium Chloride (NS Flush) 5 ml UNSCH PRN IV FLUSH SEE PROTOCOL TABLE; Start at 14:00 Vancomycin HCl 2500 mg/Sodium Chloride 525 ml @ 257.5 mls/ hr ONCE ONCE IV Last administered on 10/06/17at 15:17; Start 10/06/17 at 15:00; Stop 10/06/17 at 17:02; Status DC Zolpidem Tartrate (Ambien) 5 mg HS PRN PO SLEEP; Start 2/23/18 at 21:00 A/P Assessment and Plan A/P - lumbar spine abscess- s/p irrigation and debridement and redo laminectomy L4-5 wound culture with MRSA- continue Vancomycin- continue pain control- Gabapentin was added. ortho and ID following. -anemia- chronic- will monitor. -dyslipidemia; resumed statin -DVT prophylaxis; per ortho. Isaiah Tripathi MD Oct 07, 2017 09:45
[2017-10-07 12:00] VITALS: BP 119/59; PULSE 72; RESP 20; TEMP 96.9; O2SAT 95
[2017-10-07] MEDS ORDERED: VANCOMYCIN INJ 2,500 MG in SODIUM CHLORID 0.9% 500 ML INJ 500 ML IV ONE (12:00)
[2017-10-07 16:00] VITALS: BP 124/80; PULSE 74; RESP 19; TEMP 100.5; O2SAT 96
--- NOTE | 2017-10-07 16:00 | HHI.IDPN ---
Note Infectious Disease Note Patient says she has pain in the back "11"/10 scale. Denies chills, nausea. Low grade fever. Catheter in lumbar wound bed draining. D/W RN. 61-year-old black female who recently underwent lumbar spine surgery. The patient was treated for lumbar spine stenosis. She underwent L4-L5 bilateral decompressive hemilaminectomy along with decompression of nerve root and left side L4-L5 repair of dural leak. The patient was discharged from the hospital on September 26. She started to develop some drainage from the back wound and also pain. She was taken to surgery and underwent incision and drainage of an abscess. PAST MEDICAL HISTORY 1. Dyslipidemia, 2. Status post laminectomy for spinal stenosis 3. Appendectomy, 4. Gastric bypass 5. Knee replacement 6. Gastroesophageal reflux disease, 7. Hysterectomy. ALLERGIES NO KNOWN DRUG ALLERGIES. ANTIBIOTIC Vancomycin. SOCIAL HISTORY Positive tobacco. No alcohol or illicit drugs. Vital Signs Date Time Temp Pulse Resp B/P (MAP) Pulse Ox O2 Delivery O2 Flow Rate FiO2 10/07/17 12:00 96.9 72 20 119/59 (79) 95 10/07/17 08:00 98.6 69 20 122/63 (82) 95 10/07/17 03:24 22 10/07/17 03:24 22 10/07/17 00:21 98.9 66 18 111/62 (78) 93 10/06/17 20:54 99.3 71 18 124/61 (82) 93 10/06/17 20:28 95 Nasal Cannula 3.00 10/06/17 20:00 93 Nasal Cannula 2.00 10/06/17 16:00 97.8 97 20 103/54 (70) 96 Laboratory Tests Test 10/07/17 04:40 Random Vancomycin Level 13.8 COMMENT Microbiology Date/Time Source Procedure Growth Status 10/05/17 15:06 Blood Other Aerobic Blood Culture - Preliminary NO GROWTH IN 2 DAYS Resulted 10/05/17 15:06 Blood Other Anaerobic Blood Culture - Final QNS - SEE AEROBE REPORT Resulted 10/05/17 12:35 Blood Peripheral Aerobic Blood Culture - Preliminary NO GROWTH IN 2 DAYS Resulted 10/05/17 12:35 Blood Peripheral Anaerobic Blood Culture - Final QNS - SEE AEROBE REPORT Resulted 10/05/17 12:30 Blood Peripheral Aerobic Blood Culture - Preliminary NO GROWTH IN 2 DAYS Resulted 10/05/17 12:30 Blood Peripheral Anaerobic Blood Culture - Final QNS - SEE AEROBE REPORT Resulted 10/05/17 17:15 Wound Other Fungal Smear - Final NO FUNGAL ELEMENTS SEEN. Resulted 10/05/17 17:15 Wound Other Fungal Culture Pending Resulted 10/05/17 17:15 Wound Other Acid Fast Stain Pending Worksheet 10/05/17 17:15 Wound Other Mycobacterial Culture Pending Worksheet 10/05/17 17:15 Wound Other Gram Stain - Final Complete 10/05/17 17:15 Wound Culture - Final S. Aureus Mrsa Complete 10/05/17 17:15 Wound Other Fungal Smear - Final NO FUNGAL ELEMENTS SEEN. Resulted 10/05/17 17:15 Wound Other Fungal Culture Pending Resulted 10/05/17 17:15 Wound Other Acid Fast Stain Pending Worksheet 10/05/17 17:15 Wound Other Mycobacterial Culture Pending Worksheet 10/05/17 17:15 Wound Other Gram Stain - Final Complete 10/05/17 17:15 Wound Culture - Final S. Aureus Mrsa Complete PHYSICAL EXAMINATION GENERAL: Awake and alert and in no acute distress. HEENT: Head is atraumatic. Extraocular movements grossly intact. No icterus. Oropharynx moist mucosa without lesions. NECK: Supple without adenopathy. LUNGS: Clear to auscultation. HEART: Regular S1, S2 without murmurs, rubs or gallops. ABDOMEN: Bowel sounds present, soft, no tenderness appreciated. BACK: Drainage catheter has reddish brown serous sanguinous drainage. EXTREMITIES: No clubbing or cyanosis or edema. SKIN: No rash. NEUROLOGIC: No gross focal findings. PSYCHIATRIC: The patient is calm and cooperative. IMPRESSION 1. Lumbar abscess. MRSA. 2. Postoperative wound infection of the lumbar spine. 3. Post laminectomy and repair of epidural tear. RECOMMENDATIONS 1. Continue vancomycin intravenous for MRSA. 2. Monitor the blood culture 3. Monitor the white blood cell count which is elevated 4. Monitor the clinical response to antibiotic treatment. 5. Monitor renal function. 6. Plan on 6 weeks of IV vancomycin. Shukri Naqvi MD Oct 07, 2017 16:00
[2017-10-07 20:00] VITALS: BP 142/63; PULSE 84; RESP 20; TEMP 99.5; O2SAT 98
[2017-10-07] MEDS: SODIUM CHLORIDE 0.9% FLUSH 10 ML FLUSH IV FLUSH PRN (20:22)
[2017-10-07 20:54] LABS: AUTOMATED NEUTROPHIL # 7.5 TH/MM3 (1.8-7.7); BASOPHIL # 0.1 TH/MM3 (0-0.2); BASOPHIL % 0.6 % (0.0-2.0); EOSINOPHIL # 0.3 TH/MM3 (0-0.4); EOSINOPHIL % 2.8 % (0.0-4.0); HEMATOCRIT 25.4 % (35.0-46.0); LYMPH % 15.2 % (9.0-44.0); LYMPHOCYTE # 1.6 TH/MM3 (1.0-4.8); MEAN CELL VOLUME 89.3 FL (80.0-100.0); MEAN CORPUSCULAR HGB CONC 31.4 % (32.0-36.0); MEAN PLATELET VOLUME 7.7 FL (7.0-11.0); MONO % 8.6 % (0.0-8.0); MONOCYTE # 0.9 TH/MM3 (0-0.9); NEUT % 72.8 % (16.0-70.0); PLATELET COUNT 335 TH/MM3 (150-450); RED BLOOD COUNT 2.84 MIL/MM3 (4.00-5.30); RED CELL DISTRIBUTION WIDTH 17.6 % (11.6-17.2); WHITE BLOOD COUNT 10.3 TH/MM3 (4.0-11.0)
[2017-10-07 22:03] VITALS: O2SAT 94
[2017-10-08] VITALS (8 sets, daily range): BP systolic 117–178; BP diastolic 57–79; PULSE 77–95; RESP 16–20; TEMP 99–103.3; O2SAT 91–99
[2017-10-08] MEDS: MORPHINE SULFATE 4 MG/ML INJ IV PUSH PRN ×3 (00:44→15:11)
[2017-10-08] MEDS: ACETAMINOPHEN 325 MG TAB PO PRN (02:58)
[2017-10-08 03:54] LABS: AUTOMATED NEUTROPHIL # 7.9 TH/MM3 (1.8-7.7); BASOPHIL # 0.1 TH/MM3 (0-0.2); BASOPHIL % 0.6 % (0.0-2.0); EOSINOPHIL # 0.2 TH/MM3 (0-0.4); EOSINOPHIL % 1.7 % (0.0-4.0); HEMATOCRIT 24.4 % (35.0-46.0); HEMOGLOBIN 7.8 GM/DL (11.6-15.3); LYMPH % 17.3 % (9.0-44.0); LYMPHOCYTE # 1.9 TH/MM3 (1.0-4.8); MEAN CELL VOLUME 89.2 FL (80.0-100.0); MEAN CORPUSCULAR HEMOGLOBIN 28.6 PG (27.0-34.0); MEAN CORPUSCULAR HGB CONC 32.1 % (32.0-36.0); MONO % 9.9 % (0.0-8.0); MONOCYTE # 1.1 TH/MM3 (0-0.9); NEUT % 70.5 % (16.0-70.0); PLATELET COUNT 319 TH/MM3 (150-450); RED BLOOD COUNT 2.74 MIL/MM3 (4.00-5.30); RED CELL DISTRIBUTION WIDTH 17.4 % (11.6-17.2); WHITE BLOOD COUNT 11.2 TH/MM3 (4.0-11.0)
[2017-10-08 04:16] LABS: BICARBONATE 30.3 MEQ/L (21.0-32.0); CALCIUM 8.9 MG/DL (8.5-10.1); CREATININE 1.05 MG/DL (0.50-1.00)
[2017-10-08] MEDS: DEXTROSE 5%-LACTATED RING INJ 1,000 ML IV SCH ×3 (06:01→22:30)
--- NOTE | 2017-10-08 06:59 | RADRPT ---
EXAM DATE/TIME: 10/08/2017 05:16 [facility] COMPARISON: No previous studies available for comparison. INDICATIONS : Short of breath MEDICAL HISTORY : None. SURGICAL HISTORY : lumbar laminectomy ENCOUNTER: Subsequent ACUITY: 4 - 6 days PAIN SCORE: 5/10 LOCATION: Bilateral chest FINDINGS: Suspected medial right IJ [id number]. Lungs are hypoexpanded with mild patchy bilateral lower lung zone air space disease. Cardiomediastinal contours are within normal limits given portable technique and degree of expansion. Bony thorax is grossly intact. CONCLUSION: 1. Low lung volumes with mild patchy bilateral lower lung zone airspace disease, likely atelectasis. Foreign Blancas MD on October 08, 2017 at 6:57 Board Certified Radiologist. This report was verified electronically.
--- NOTE | 2017-10-08 07:12 | PD.ORT.PN ---
Subjective Subjective Remarks pod #3 s/p lumbar spine I&D with MRSA infection: intra-op findings did not show evidence of epidural abscess "hurt all over" patient states she does feel somewhat better today than pre-operatively pt has hx of chronic pain syndrome Objective Vitals Vital Signs Date Time Temp Pulse Resp B/P (MAP) Pulse Ox O2 Delivery O2 Flow Rate FiO2 10/08/17 06:00 101.0 10/08/17 02:57 100.3 10/08/17 02:48 102.3 10/08/17 00:00 103.3 95 20 117/57 (77) 92 10/07/17 22:03 94 Nasal Cannula 3.00 10/07/17 20:00 99.5 84 20 142/63 (89) 98 10/07/17 16:00 100.5 74 19 124/80 (95) 96 10/07/17 12:00 96.9 72 20 119/59 (79) 95 10/07/17 08:00 98.6 69 20 122/63 (82) 95 I/O 10/07/17 10/07/17 10/07/17 10/08/17 10/08/17 10/08/17 07:00 15:00 23:00 07:00 15:00 23:00 Intake Total 1240 ml 120 ml 1750 ml 1480 ml Output Total 1030 ml 1350 ml 2000 ml Balance 210 ml 120 ml 400 ml -520 ml Intake Oral 240 ml 120 ml 750 ml 480 ml IV Total 1000 ml 1000 ml 1000 ml Output Urine Total 1000 ml 1300 ml 2000 ml Drainage Total 30 ml 50 ml # Bowel Movements 0 Result Diagram: 10/08/17 0305 10/08/17 0343 Objective Remarks Seen by Dr. Dylan Martin Lumbar spine wound dressings are dry with no evidence of drainage Drain removed yesterday after minimal drainage Neurologically no focal deficit. Assessment & Plan Assessment and Plan pod #3 s/p lumbar spine I&D with MRSA infection: intra-op findings did not show evidence of epidural abscess continue IV vancomycin per I.D. continue bedrest for at least two additional days Coumadin 10 mg today; low dose coumadin thereafter for dvt prop anticipate d/c to SNF when stable Shannan Palacios Oct 08, 2017 07:12
[2017-10-08] MEDS: PRAVASTATIN SOD 40 MG TAB PO SCH (07:54)
[2017-10-08] MEDS: GABAPENTIN 300 MG CAP PO SCH ×3 (07:54→17:38)
[2017-10-08] MEDS: ACETAMINOPHEN/HYDROcodone 325 MG/7.5 MG TAB PO PRN ×2 (07:54→12:20)
[2017-10-08] MEDS: DOCUSATE SODIUM 100 MG CAP PO SCH ×2 (07:55→22:28)
[2017-10-08] MEDS: MULTIVITAMINS/MINERALS THERAPEUTIC TAB PO SCH ×2 (07:55→22:28)
[2017-10-08] MEDS: PANTOPRAZOLE SOD 20 MG DELAYED RELEASE TAB PO SCH (07:55)
[2017-10-08] MEDS: SODIUM CHLORIDE 0.9% FLUSH 10 ML FLUSH IV FLUSH PRN ×2 (08:59→15:11)
[2017-10-08] MEDS ORDERED: WARFARIN SOD 10 MG TAB PO ONE (09:00)
--- NOTE | 2017-10-08 11:00 | HHI.PR ---
Subjective Remarks in no acute distress. but complaining of moderate to severe back pain. T max 103.3. Objective Vitals Vital Signs Date Time Temp Pulse Resp B/P (MAP) Pulse Ox O2 Delivery O2 Flow Rate FiO2 10/08/17 08:00 99.8 88 16 164/79 (107) 91 10/08/17 06:00 101.0 10/08/17 02:57 100.3 10/08/17 02:48 102.3 10/08/17 00:00 103.3 95 20 117/57 (77) 92 10/07/17 22:03 94 Nasal Cannula 3.00 10/07/17 20:00 99.5 84 20 142/63 (89) 98 10/07/17 16:00 100.5 74 19 124/80 (95) 96 10/07/17 12:00 96.9 72 20 119/59 (79) 95 I/O 10/07/17 10/07/17 10/07/17 10/08/17 10/08/17 10/08/17 07:00 15:00 23:00 07:00 15:00 23:00 Intake Total 1240 ml 120 ml 1750 ml 1480 ml Output Total 1030 ml 1350 ml 2000 ml Balance 210 ml 120 ml 400 ml -520 ml Intake Oral 240 ml 120 ml 750 ml 480 ml IV Total 1000 ml 1000 ml 1000 ml Output Urine Total 1000 ml 1300 ml 2000 ml Drainage Total 30 ml 50 ml # Bowel Movements 0 Result Diagram: 10/08/17 0305 10/08/17 0343 Objective Remarks GENERAL: This is a well-nourished, well-developed patient, in no apparent distress. CARDIOVASCULAR: Regular rate and regular rhythm without murmurs, gallops, or rubs. RESPIRATORY: Clear to auscultation. Breath sounds equal bilaterally. No wheezes , rales, or rhonchi. GASTROINTESTINAL: Abdomen soft, non-tender, nondistended. Normal, active bowel sounds MUSCULOSKELETAL: Extremities without clubbing, cyanosis, or edema. NEURO: Alert & Oriented x4 to person, place, time, situation. Moves all ext x4 Medications and IVs Inpatient Medications Acetaminophen (Tylenol) 650 mg Q4H PRN PO fever > 101 Last administered on 10/08at 02:58; Start 10/08/17 at 02:45 Acetaminophen/ Hydrocodone Bitart ([place] 7.5-325 Mg) 2 tab Q4HR PRN PO PAIN SCALE 6 TO 10 Last administered on 10/08/17at 07:54; Start 10/06/17 at 09:00 Al Hydrox/Mg Hydrox/Simethicone (Mag-Al Plus Susp Liq) 30 ml Q6H PRN PO INDIGESTION; Start 10/05/17 at 17:00 Bisacodyl (Dulcolax Supp) 10 mg DAILY PRN RECTAL CONSTIPATION; Start 10/05/17 at 17:15 Cefazolin Sodium 1000 mg/Sodium Chloride 100 ml @ 200 mls/hr Q8H IV Last administered on 10/06/17at 17:17; Start 10/06/17 at 00:00; Stop 10/06/17 at 16:29 ; Status DC Chlorhexidine Gluconate (Chlorhexidine 2% Cloth) 3 pack COMMERCIAL ANALYST PRN TOPICAL SEE LABEL COMMENTS; Start 10/05/17 at 12:00; Stop 10/08/17 at 11:59 Chlorhexidine Gluconate (Hibiclens 4% Top Soln) 1 applic ONCE TOPICAL ; Start at 12:00; Stop 10/08/17 at 11:59 Dextrose/Lactated Ringer's 1,000 ml @ 150 mls/hr Q6H40M IV Last administered on 10/08/17at 06:01; Start 10/05/17 at 12:00 Docusate Sodium (Colace) 100 mg BID PO Last administered on 10/08/17at 07:55; Start 10/06/17 at 09:30 Gabapentin (Neurontin) 300 mg TID PO Last administered on 10/08/17at 07:54; Start 10/07/17 at 09:00 Heparin Sodium (Porcine) (Heparin Central Flush) 500 units UNSCH IV FLUSH ; Start 10/05/17 at 14:00 Lactated Ringer's 1,000 ml @ 30 mls/hr Q24H PRN IV SEE LABEL COMMENTS; Start at 12:00; Stop 10/08/17 at 11:59 Metoprolol Tartrate (Lopressor) 25 mg COMMERCIAL ANALYST PRN PO SEE LABEL COMMENTS; Start 10/05/17 at 12:00; Stop 10/08/17 at 11:59 Miscellaneous Information ALL NURSING DEPARTME... UNSCH PRN .XX SEE LABEL COMMENTS; Start 10/05/17 at 16:40; Stop 10/06/17 at 16:39; Status DC Miscellaneous Information (Post-op Orders (for Pharmacy)) STAT ONCE XX ; Start 10/05/17 at 18:00; Stop 10/05/17 at 18:01; Status DC Morphine Sulfate (Morphine Inj) 5 mg Q3H PRN IV PUSH BREAKTHROUGH PAIN Last administered on 10/08/17at 08:58; Start 10/05/17 at 17:00 Multivitamins/ Minerals Therapeutic (Theragran M Tab) 1 tab BID PO Last administered on 10/08/17at 07:55; Start 10/06/17 at 09:00; Stop 12/05/17 at 08:59 Naloxone HCl (Narcan Inj) 0.4 mg UNSCH PRN IV PUSH RESPIRATORY RATE LESS THAN 10; Start 10/05/17 at 17:00 Ondansetron HCl (Zofran Inj) 4 mg Q6H PRN IV PUSH NAUSEA OR VOMITING; Start at 17:00 Pantoprazole Sodium (Protonix) 20 mg DAILY PO Last administered on 10/08/17at 07 :55; Start 10/06/17 at 09:00 Patient Medication Teaching (Coumadin Booklet) 1 ONCE ONCE .XX ; Start at 09:00; Stop 10/08/17 at 09:02; Status DC Pharmacy Profile Note 0 ml @ 0 mls/hr UNSCH OTHER ; Start 10/06/17 at 13:30 Povidone Iodine (Betadine 5% Antisepsis Kit) 1 applic COMMERCIAL ANALYST PRN EACH NARE SEE LABEL COMMENTS; Start 10/05/17 at 12:00; Stop 10/08/17 at 11:59 Pravastatin Sodium (Pravachol) 40 mg DAILY PO Last administered on 10/08/17at 07 :54; Start 10/06/17 at 09:00 Sodium Biphosphate/ Sodium Phosphate (Fleets Enema (Adult)) 133 ml DAILY PRN MS CONSTIPATION; Start 10/05/17 at 17:15 Sodium Chloride (NS Flush) 5 ml UNSCH PRN IV FLUSH SEE PROTOCOL TABLE Last administered on 10/08/17at 08:59; Start 10/05/17 at 14:00 Vancomycin HCl 2500 mg/Sodium Chloride 525 ml @ 257.5 mls/ hr ONCE ONCE IV Last administered on 10/07/17at 11:43; Start 10/07/17 at 12:00; Stop 10/07/17 at 14:02; Status DC Warfarin Sodium (Coumadin) GIVE 5MG IF INR < 1.2 G... DAILY@1000 PO ; Start at 10:00 Zolpidem Tartrate (Ambien) 5 mg HS PRN PO SLEEP; Start 10/05/17 at 21:00 A/P Assessment and Plan A/P - lumbar spine abscess- s/p irrigation and debridement and redo laminectomy L4-5 wound culture with MRSA- continue Vancomycin- bed rest for now- continue pain control- Gabapentin was added. ortho and ID following. -anemia- chronic- will monitor. -dyslipidemia; resumed statin -DVT prophylaxis; started on Coumadin- per ortho. Discharge Planning still febrile. dc planning when cleared by ID and ortho. Isaiah Tripathi MD Oct 08, 2017 11:00
--- NOTE | 2017-10-08 11:33 | MP ---
cc: FLY YEBOAH M.D., JOHN R. M.D. DATE OF SURGERY 10/05/2017 PREOPERATIVE DIAGNOSIS 1. Lumbar spine abscess. 2. Lumbar spine dural leak. 3. Status post L4-5 laminectomy. POSTOPERATIVE DIAGNOSIS 1. Lumbar spine abscess. 2. Lumbar spine dural leak. 3. Status post L4-5 laminectomy. PROCEDURE 1. Lumbar spine irrigation and debridement, and drainage of lumbar spine abscess. 2. L4-5 decompressive laminectomy, foraminotomy, reexploration and repair of dural leak. SURGEON Gillian Yeboah M.D. TELEVISION ACTOR Staff. ESTIMATED BLOOD LOSS 100 cc. SPECIMEN Debrided soft tissues sent for Gram stain, aerobic, anaerobic culture and sensitivity, fungal smear and cultures. INDICATIONS A 61-year-old female presents with the following history. The patient is status post L4-5 laminectomy on September 24, 2017. This was for severe lumbar spinal stenosis. She did have a left-sided L4-5 dural leak. This was repaired in the operating room. The patient developed drainage from the wound assumed to be cerebrospinal fluid. She also had associated intermittent headaches. She was actually seen in the [facility] with her sister on October 01, 2017. It was recommended at this time for her to be re-admitted to the hospital for further management and treatment of her lumbar spine. The patient declined to be admitted to the hospital. She stated that she wanted to go back to her house so that she could "smoke." Two days later on October 03, 2017 the patient developed "whole body hurts." She also complained of sharp pain in her back and numbness radiating into her legs with intermittent headaches. The patient was seen in the office earlier today. She had an obvious infection of the lumbar spine. I urgently admitted her to the hospital to obtain blood cultures and laboratory studies, and recommended taking her to the operating room for the above-mentioned surgical procedure. DETAILS OF PROCEDURE The patient was brought into the operating room and had satisfactory general endotracheal anesthesia by Dr. Niko Roblero of the Department of Anesthesia. Almost an hour and 30 minutes was utilized in the operating room to obtain intravenous access. Dr. Roblero used ultrasound-guided access to the subclavian on the left and jugular on the left and right side. The patient was found to have significant thrombosis involving these vessels. The patient did have an [id number] in the right side of her anterior chest area. Under ultrasound guidance a right venous access was made in the arm. The patient was then transferred onto the [facility] spinal frame. Because of the patient's morbid obesity great care was made to protect all pressure points. The thoracic and lumbosacral spine was all prepped and draped in the usual sterile manner. An elliptical excision was made of the wound and the deep subcutaneous tissues. The patient was found to have an obvious abscess that appeared to involve mostly the tissues dorsal to the lumbosacral fascia. The previous Tycron suture to repair the lumbosacral fascia was removed. The wound itself was then irrigated with 9000 cc of sterile saline antibiotic solution. Further dissection was carried out at the L4-5 interspace. Further laminectomy was performed at L4 and L5. This was to rule out any evidence of epidural abscess of which there was no evidence of one. The patient had further satisfactory decompression at the L4-5 laminectomy and foraminotomies. The dura itself was repaired using Duragen and Tisseel. With this Valsalva maneuver was performed and there was no evidence of any further leakage of cerebrospinal fluid. The fascia was then closed using two #1 PDS sutures. A 10 Greek Heath drain was then used to drain the wound. The wound was then further closed with 2-0 PDS, #1 Prolene suture and 2-0 nylon on the skin. Sterile dressings were applied. The patient tolerated the procedure well and arrived in the recovery room in a stable and satisfactory manner. MD LAQUITA Limon/ADRIENNE /4:23 PM /11:15 AM
--- NOTE | 2017-10-08 13:09 | HHI.IDPN ---
Note Infectious Disease Note Patient says she has severe headache. Says she has pain in the back "11"/10 scale. Receiving Point and morphine. Denies chills, nausea. Temp of 103 last night. Temp lower this am. No Vomiting. No SOB. D/W RN. 61-year-old black female who recently underwent lumbar spine surgery. The patient was treated for lumbar spine stenosis. She underwent L4-L5 bilateral decompressive hemilaminectomy along with decompression of nerve root and left side L4-L5 repair of dural leak. The patient was discharged from the hospital on September 26. She started to develop some drainage from the back wound and also pain. She was taken to surgery and underwent incision and drainage of an abscess. PAST MEDICAL HISTORY 1. Dyslipidemia, 2. Status post laminectomy for spinal stenosis 3. Appendectomy, 4. Gastric bypass 5. Knee replacement 6. Gastroesophageal reflux disease, 7. Hysterectomy. ALLERGIES NO KNOWN DRUG ALLERGIES. ANTIBIOTIC Vancomycin. SOCIAL HISTORY Positive tobacco. No alcohol or illicit drugs. Vital Signs Date Time Temp Pulse Resp B/P (MAP) Pulse Ox O2 Delivery O2 Flow Rate FiO2 10/08/17 08:00 99.8 88 16 164/79 (107) 91 10/08/17 06:00 101.0 10/08/17 02:57 100.3 10/08/17 02:48 102.3 10/08/17 00:00 103.3 95 20 117/57 (77) 92 10/07/17 22:03 94 Nasal Cannula 3.00 10/07/17 20:00 99.5 84 20 142/63 (89) 98 10/07/17 16:00 100.5 74 19 124/80 (95) 96 Laboratory Tests Test 10/07/17 20:30 10/08/17 03:05 White Blood Count 10.3 TH/MM3 11.2 TH/MM3 Red Blood Count 2.84 MIL/MM3 2.74 MIL/MM3 Hemoglobin 8.0 GM/DL 7.8 GM/DL Hematocrit 25.4 % 24.4 % Mean Corpuscular Volume 89.3 FL 89.2 FL Mean Corpuscular Hemoglobin 28.0 PG 28.6 PG Mean Corpuscular Hemoglobin Concent 31.4 % 32.1 % Red Cell Distribution Width 17.6 % 17.4 % Platelet Count 335 TH/MM3 319 TH/MM3 Mean Platelet Volume 7.7 FL 8.0 FL Neutrophils (%) (Auto) 72.8 % 70.5 % Lymphocytes (%) (Auto) 15.2 % 17.3 % Monocytes (%) (Auto) 8.6 % 9.9 % Eosinophils (%) (Auto) 2.8 % 1.7 % Basophils (%) (Auto) 0.6 % 0.6 % Neutrophils # (Auto) 7.5 TH/MM3 7.9 TH/MM3 Lymphocytes # (Auto) 1.6 TH/MM3 1.9 TH/MM3 Monocytes # (Auto) 0.9 TH/MM3 1.1 TH/MM3 Eosinophils # (Auto) 0.3 TH/MM3 0.2 TH/MM3 Basophils # (Auto) 0.1 TH/MM3 0.1 TH/MM3 CBC Comment DIFF FINAL DIFF FINAL Differential Comment Laboratory Tests Test 10/08/17 03:43 Blood Urea Nitrogen 14 MG/DL Creatinine 1.05 MG/DL Random Glucose 114 MG/DL Calcium Level 8.9 MG/DL Sodium Level 138 MEQ/L Potassium Level 4.1 MEQ/L Chloride Level 105 MEQ/L Carbon Dioxide Level 30.3 MEQ/L Anion Gap 3 MEQ/L Estimat Glomerular Filtration Rate 65 ML/MIN Microbiology Date/Time Source Procedure Growth Status 10/08/17 03:43 Blood Peripheral Aerobic Blood Culture Pending Received 10/08/17 03:43 Blood Peripheral Anaerobic Blood Culture Pending Received 10/05/17 15:06 Blood Other Aerobic Blood Culture - Preliminary NO GROWTH IN 3 DAYS Resulted 10/05/17 15:06 Blood Other Anaerobic Blood Culture - Final QNS - SEE AEROBE REPORT Resulted 10/05/17 17:15 Wound Other Fungal Smear - Final NO FUNGAL ELEMENTS SEEN. Resulted 10/05/17 17:15 Wound Other Fungal Culture Pending Resulted 10/05/17 17:15 Wound Other Acid Fast Stain - Final NO ACID FAST BACILLI SEEN Resulted 10/05/17 17:15 Wound Other Mycobacterial Culture Pending Resulted 10/05/17 17:15 Wound Other Gram Stain - Final Complete 10/05/17 17:15 Wound Culture - Final S. Aureus Mrsa Complete 10/05/17 17:15 Wound Other Fungal Smear - Final NO FUNGAL ELEMENTS SEEN. Resulted 10/05/17 17:15 Wound Other Fungal Culture Pending Resulted 10/05/17 17:15 Wound Other Acid Fast Stain - Final NO ACID FAST BACILLI SEEN Resulted 10/05/17 17:15 Wound Other Mycobacterial Culture Pending Resulted 10/05/17 17:15 Wound Other Gram Stain - Final Complete 10/05/17 17:15 Wound Culture - Final S. Aureus Mrsa Complete PHYSICAL EXAMINATION GENERAL: Somnolent. No acute distress. HEENT: Head is atraumatic. Extraocular movements grossly intact. No icterus. Oropharynx moist mucosa without lesions. NECK: Supple without adenopathy. LUNGS: Clear to auscultation. HEART: Regular S1, S2 without murmurs, rubs or gallops. ABDOMEN: Bowel sounds present, soft, no tenderness appreciated. BACK: Drainage catheter removed. EXTREMITIES: No clubbing or cyanosis or edema. SKIN: No rash. NEUROLOGIC: No gross focal findings. PSYCHIATRIC: Calm and cooperative. IMPRESSION 1. Lumbar abscess. MRSA. 2. Fever. ? related to #1. Post op. 3. Postoperative wound infection of the lumbar spine. 4. Post laminectomy and repair of epidural tear 5. FOLEY - ? medicine related. RECOMMENDATIONS 1. Continue vancomycin intravenous for MRSA. 2. Monitor the blood culture 3. Monitor the white blood cell count. 4. Send UA - pt has alfonso catheter. 5. Monitor renal function. Improving. 6. Monitor temps. 7. Monitor clinical status. Plan on 6 weeks of IV vancomycin. Shukri Naqvi MD Oct 08, 2017 13:09
[2017-10-08] MEDS ORDERED: VANCOMYCIN INJ 2,500 MG in SODIUM CHLORID 0.9% 500 ML INJ 500 ML IV ONE (15:00)
[2017-10-08 19:33] LABS: BILIRUBIN, URINE NEG (NEG); BLOOD, URINE NEG (NEG); GLUCOSE,URINE NEG (NEG); KETONE, URINE NEG (NEG); MUCUS URINE FEW /lpf (OCC); NITRITE,URINE NEG (NEG); URINE COLOR LIGHT-YELLOW (YELLW/STRAW); URINE LEUKOCYTE ESTERASE NEG (NEG)
[2017-10-09] VITALS (7 sets, daily range): BP systolic 125–163; BP diastolic 58–85; PULSE 70–78; RESP 17–20; TEMP 99.2–100.1; O2SAT 94–100
[2017-10-09] MEDS: DEXTROSE 5%-LACTATED RING INJ 1,000 ML IV SCH ×4 (05:08→23:11)
[2017-10-09 05:33] LABS: AUTOMATED NEUTROPHIL # 9.7 TH/MM3 (1.8-7.7); BASOPHIL % 0.4 % (0.0-2.0); EOSINOPHIL % 0.3 % (0.0-4.0); HEMATOCRIT 24.6 % (35.0-46.0); HEMOGLOBIN 7.8 GM/DL (11.6-15.3); LYMPH % 9.6 % (9.0-44.0); LYMPHOCYTE # 1.1 TH/MM3 (1.0-4.8); MEAN CELL VOLUME 86.8 FL (80.0-100.0); MEAN CORPUSCULAR HEMOGLOBIN 27.7 PG (27.0-34.0); MEAN CORPUSCULAR HGB CONC 31.9 % (32.0-36.0); MEAN PLATELET VOLUME 7.6 FL (7.0-11.0); MONO % 8.2 % (0.0-8.0); NEUT % 81.5 % (16.0-70.0); PLATELET COUNT 362 TH/MM3 (150-450); RED BLOOD COUNT 2.83 MIL/MM3 (4.00-5.30); RED CELL DISTRIBUTION WIDTH 17.3 % (11.6-17.2); WHITE BLOOD COUNT 11.9 TH/MM3 (4.0-11.0)
[2017-10-09 05:45] LABS: INTERNATIONAL NORMALIZED RATIO 1.1 RATIO; PROTHROMBIN TIME - PATIENT 10.7 SEC (9.8-11.6)
[2017-10-09] MEDS: ACETAMINOPHEN/HYDROcodone 325 MG/7.5 MG TAB PO PRN ×4 (05:47→21:26)
[2017-10-09 05:51] LABS: CREATININE 0.78 MG/DL (0.50-1.00)
[2017-10-09 05:53] LABS: RANDOM VANCOMYCIN 15.4 COMMENT
--- NOTE | 2017-10-09 07:32 | PD.ORT.PN ---
Subjective Subjective Remarks POD# 4 Lumbar spine I&D MRSA Patient looks better and feels better today [id number] LBP;no radiating LE pain Objective Vitals Vital Signs Date Time Temp Pulse Resp B/P (MAP) Pulse Ox O2 Delivery O2 Flow Rate FiO2 10/09/17 00:00 99.5 78 20 161/69 (99) 96 10/08/17 20:47 99.7 77 18 178/79 (112) 96 10/08/17 16:00 100.3 80 18 148/72 (97) 99 10/08/17 12:00 99.0 79 17 172/74 (106) 96 10/08/17 08:00 99.8 88 16 164/79 (107) 91 I/O 10/08/17 10/08/17 10/08/17 10/09/17 10/09/17 10/09/17 07:00 15:00 23:00 07:00 15:00 23:00 Intake Total 1480 ml 1000 ml 1765 ml 760 ml Output Total 2000 ml 4400 ml 3000 ml Balance -520 ml 1000 ml -2635 ml -2240 ml Intake Oral 480 ml 240 ml 760 ml IV Total 1000 ml 1000 ml 1525 ml Output Urine Total 2000 ml 4400 ml 3000 ml Result Diagram: 10/09/17 0510 10/09/17 0510 Other Results Laboratory Tests Test 10/09/17 05:10 Prothromb Time International Ratio 1.1 RATIO Prothrombin Time 10.7 SEC (9.8-11.6) Objective Remarks Lumbar spine wound dressings are dry with no evidence of drainage Neurologically no focal deficit. Assessment & Plan Assessment and Plan pod #4 s/p lumbar spine I&D with MRSA infection: intra-op findings did not show evidence of epidural abscess continue IV vancomycin per I.D. continue bedrest for at least 1-3 additional days low dose coumadin thereafter for dvt prop anticipate d/c to SNF when stable Dylan Martin MD Oct 09, 2017 07:32
[2017-10-09] MEDS: MULTIVITAMINS/MINERALS THERAPEUTIC TAB PO SCH ×2 (07:37→21:22)
[2017-10-09] MEDS: GABAPENTIN 300 MG CAP PO SCH ×3 (07:38→17:20)
[2017-10-09] MEDS: ACETAMINOPHEN 325 MG TAB PO PRN (07:38)
[2017-10-09] MEDS: PANTOPRAZOLE SOD 20 MG DELAYED RELEASE TAB PO SCH (07:38)
[2017-10-09] MEDS: PRAVASTATIN SOD 40 MG TAB PO SCH (07:38)
[2017-10-09] MEDS: DOCUSATE SODIUM 100 MG CAP PO SCH ×2 (07:38→21:22)
[2017-10-09] MEDS: SODIUM CHLORIDE 0.9% FLUSH 10 ML FLUSH IV FLUSH PRN ×2 (07:40→18:29)
[2017-10-09] MEDS: MORPHINE SULFATE 4 MG/ML INJ IV PUSH PRN ×4 (07:40→23:10)
[2017-10-09] MEDS: WARFARIN SOD 5 MG TAB PO SCH (10:00)
[2017-10-09] MEDS ORDERED: WARFARIN SOD 10 MG TAB PO ONE (10:00)
[2017-10-09] MEDS: VANCOMYCIN INJ 2,500 MG in SODIUM CHLORID 0.9% 500 ML INJ 500 ML IV SCH (11:56)
--- NOTE | 2017-10-09 13:08 | HHI.PR ---
Subjective Remarks Follow-up lumbar epidural abscess 10/09/17-patient seen and examined, spiking fevers, denies any significant back pain. No nausea and vomiting with by mouth intake Objective Vitals Vital Signs Date Time Temp Pulse Resp B/P (MAP) Pulse Ox O2 Delivery O2 Flow Rate FiO2 10/09/17 08:00 100.1 76 17 145/75 (98) 95 10/09/17 00:00 99.5 78 20 161/69 (99) 96 10/08/17 20:47 99.7 77 18 178/79 (112) 96 10/08/17 16:00 100.3 80 18 148/72 (97) 99 I/O 10/08/17 10/08/17 10/08/17 10/09/17 10/09/17 10/09/17 07:00 15:00 23:00 07:00 15:00 23:00 Intake Total 1480 ml 1000 ml 1765 ml 760 ml Output Total 2000 ml 4400 ml 3000 ml Balance -520 ml 1000 ml -2635 ml -2240 ml Intake Oral 480 ml 240 ml 760 ml IV Total 1000 ml 1000 ml 1525 ml Output Urine Total 2000 ml 4400 ml 3000 ml Result Diagram: 10/09/17 0510 10/09/17 0510 Imaging Last Impressions Chest X-Ray 10/08/17 0000 Signed Impressions: Service Date/Time: Sunday, October 08, 2017 05:16 - CONCLUSION: 1. Low lung volumes with mild patchy bilateral lower lung zone airspace disease, likely atelectasis. Foreign Blancas MD Objective Remarks GENERAL: NAD SKIN: Warm and dry. HEAD: Normocephalic. EYES: No scleral icterus. No injection or drainage. NECK: Supple, trachea midline. No JVD or lymphadenopathy. CARDIOVASCULAR: Regular rate and rhythm without murmurs, gallops, or rubs. RESPIRATORY: Breath sounds equal bilaterally. No accessory muscle use. GASTROINTESTINAL: Abdomen soft, non-tender, nondistended. MUSCULOSKELETAL: No cyanosis, or edema. BACK: Nontender without obvious deformity. No CVA tenderness. Procedures s/p I&D lumbar epidural abscess A/P Problem List: (1) Abscess in epidural space of lumbar spine ICD Code: G06.1 - Intraspinal abscess and granuloma Assessment and Plan 61-year-old female with Abscess in the epidural space of lumbar spine s/p irrigation and debridement and redo laminectomy L4-5 by orthopedic surgery Wound positive for MRSA Currently on vancomycin 6 weeks per ID Check blood culture secondary to febrile episodes Pain management accordingly Continue with bed rest 1-3 days per orthopedic surgery Normochromic normocytic anemia Transfuse 1 unit packed red blood cell Check iron study Monitor H&H Dyslipidemia Continue statin Hypertension Start Lisinopril 5mg daily -DVT prophylaxis:on Coumadin- per ortho. Jonh Jeff MD Oct 09, 2017 13:08
[2017-10-09] MEDS ORDERED: diphenhydrAMINE HCL 25 MG CAP PO PRN (13:15)
[2017-10-09] MEDS ORDERED: ACETAMINOPHEN 325 MG TAB PO PRN (13:15)
[2017-10-09] MEDS ORDERED: SODIUM CHLOR 0.9% 250 ML INJ 250 ML IV ONE (13:15)
--- NOTE | 2017-10-09 14:31 | HHI.IDPN ---
Note Infectious Disease Note Patient says she still has FOLEY. Says she has pain in the back. back wound without drainage. Receiving [place] and morphine. Denies chills, nausea. Low grade temp. No Vomiting. On O2 via NC 2L. Blood culture from 10/08 has gram positive cocci. D/W RN. 61-year-old black female who recently underwent lumbar spine surgery. The patient was treated for lumbar spine stenosis. She underwent L4-L5 bilateral decompressive hemilaminectomy along with decompression of nerve root and left side L4-L5 repair of dural leak. The patient was discharged from the hospital on September 26. She started to develop some drainage from the back wound and also pain. She was taken to surgery and underwent incision and drainage of a lumbar abscess. PAST MEDICAL HISTORY 1. Dyslipidemia, 2. Status post laminectomy for spinal stenosis 3. Appendectomy, 4. Gastric bypass 5. Knee replacement 6. Gastroesophageal reflux disease, 7. Hysterectomy. ALLERGIES NO KNOWN DRUG ALLERGIES. ANTIBIOTIC Vancomycin. OBJECTIVE: Vital Signs Date Time Temp Pulse Resp B/P (MAP) Pulse Ox O2 Delivery O2 Flow Rate FiO2 10/09/17 12:00 99.2 78 18 141/85 (103) 94 10/09/17 08:00 100.1 76 17 145/75 (98) 95 10/09/17 00:00 99.5 78 20 161/69 (99) 96 10/08/17 20:47 99.7 77 18 178/79 (112) 96 10/08/17 16:00 100.3 80 18 148/72 (97) 99 Laboratory Tests Test 10/07/17 20:30 10/08/17 03:05 10/09/17 05:10 White Blood Count 10.3 TH/MM3 11.2 TH/MM3 11.9 TH/MM3 Red Blood Count 2.84 MIL/MM3 2.74 MIL/MM3 2.83 MIL/MM3 Hemoglobin 8.0 GM/DL 7.8 GM/DL 7.8 GM/DL Hematocrit 25.4 % 24.4 % 24.6 % Mean Corpuscular Volume 89.3 FL 89.2 FL 86.8 FL Mean Corpuscular Hemoglobin 28.0 PG 28.6 PG 27.7 PG Mean Corpuscular Hemoglobin Concent 31.4 % 32.1 % 31.9 % Red Cell Distribution Width 17.6 % 17.4 % 17.3 % Platelet Count 335 TH/MM3 319 TH/MM3 362 TH/MM3 Mean Platelet Volume 7.7 FL 8.0 FL 7.6 FL Neutrophils (%) (Auto) 72.8 % 70.5 % 81.5 % Lymphocytes (%) (Auto) 15.2 % 17.3 % 9.6 % Monocytes (%) (Auto) 8.6 % 9.9 % 8.2 % Eosinophils (%) (Auto) 2.8 % 1.7 % 0.3 % Basophils (%) (Auto) 0.6 % 0.6 % 0.4 % Neutrophils # (Auto) 7.5 TH/MM3 7.9 TH/MM3 9.7 TH/MM3 Lymphocytes # (Auto) 1.6 TH/MM3 1.9 TH/MM3 1.1 TH/MM3 Monocytes # (Auto) 0.9 TH/MM3 1.1 TH/MM3 1.0 TH/MM3 Eosinophils # (Auto) 0.3 TH/MM3 0.2 TH/MM3 0.0 TH/MM3 Basophils # (Auto) 0.1 TH/MM3 0.1 TH/MM3 0.0 TH/MM3 CBC Comment DIFF FINAL DIFF FINAL DIFF FINAL Differential Comment Laboratory Tests Test 10/08/17 03:43 10/09/17 05:10 10/09/17 13:55 Blood Urea Nitrogen 14 MG/DL Creatinine 1.05 MG/DL 0.78 MG/DL Random Glucose 114 MG/DL Calcium Level 8.9 MG/DL Sodium Level 138 MEQ/L Potassium Level 4.1 MEQ/L Chloride Level 105 MEQ/L Carbon Dioxide Level 30.3 MEQ/L Anion Gap 3 MEQ/L Estimat Glomerular Filtration Rate 65 ML/MIN 91 ML/MIN Microbiology Date/Time Source Procedure Growth Status 10/09/17 13:55 Blood Peripheral Aerobic Blood Culture Pending Received 10/09/17 13:55 Blood Peripheral Anaerobic Blood Culture Pending Received 10/09/17 13:50 Blood Peripheral Aerobic Blood Culture Pending Received 10/09/17 13:50 Blood Peripheral Anaerobic Blood Culture Pending Received 10/08/17 16:30 Blood Peripheral Aerobic Blood Culture - Preliminary NO GROWTH IN 1 DAY Resulted 10/08/17 16:30 Blood Peripheral Anaerobic Blood Culture - Final QNS - SEE AEROBE REPORT Resulted 10/08/17 03:43 Blood Peripheral Aerobic Blood Culture - Preliminary Gram Positive Cocci Resulted 10/08/17 03:43 Anaerobic Blood Culture - Preliminary Gram Positive Cocci Resulted Microbiology Date/Time Source Procedure Growth Status 10/08/17 03:43 Blood Peripheral Aerobic Blood Culture Pending Received 10/08/17 03:43 Blood Peripheral Anaerobic Blood Culture Pending Received 10/05/17 15:06 Blood Other Aerobic Blood Culture - Preliminary NO GROWTH IN 3 DAYS Resulted 10/05/17 15:06 Blood Other Anaerobic Blood Culture - Final QNS - SEE AEROBE REPORT Resulted 10/05/17 17:15 Wound Other Fungal Smear - Final NO FUNGAL ELEMENTS SEEN. Resulted 10/05/17 17:15 Wound Other Fungal Culture Pending Resulted 10/05/17 17:15 Wound Other Acid Fast Stain - Final NO ACID FAST BACILLI SEEN Resulted 10/05/17 17:15 Wound Other Mycobacterial Culture Pending Resulted 10/05/17 17:15 Wound Other Gram Stain - Final Complete 10/05/17 17:15 Wound Culture - Final S. Aureus Mrsa Complete 10/05/17 17:15 Wound Other Fungal Smear - Final NO FUNGAL ELEMENTS SEEN. Resulted 10/05/17 17:15 Wound Other Fungal Culture Pending Resulted 10/05/17 17:15 Wound Other Acid Fast Stain - Final NO ACID FAST BACILLI SEEN Resulted 10/05/17 17:15 Wound Other Mycobacterial Culture Pending Resulted 10/05/17 17:15 Wound Other Gram Stain - Final Complete 10/05/17 17:15 Wound Culture - Final S. Aureus Mrsa Complete PHYSICAL EXAMINATION GENERAL: No acute distress. HEENT: Extraocular movements grossly intact. No icterus. Oropharynx moist mucosa without lesions. NECK: Supple without adenopathy. LUNGS: Markedly diminished breath sounds. HEART: Regular S1, S2 without murmurs, rubs or gallops. ABDOMEN: Bowel sounds present, soft, no tenderness appreciated. BACK: No tenderness. EXTREMITIES: No clubbing or cyanosis or edema. SKIN: No rash. NEUROLOGIC: No gross focal findings. PSYCHIATRIC: Calm and cooperative. IMPRESSION 1. Lumbar abscess. MRSA. 2. Fever. Bacteremia - Gram positive cocci. CXR unremarkable. UA unremarkable. 3. Postoperative wound infection of the lumbar spine. 4. Post laminectomy and repair of epidural tear 5. FOLEY - ? medicine related. RECOMMENDATIONS 1. Continue vancomycin for MRSA. 2. Monitor the blood cultures. 3. Monitor the white blood cell count. 4. Monitor renal function. Improving. 5. Monitor temps. 6. Monitor clinical status. Plan on 6 weeks of IV vancomycin. Shukri Naqvi MD Oct 09, 2017 14:31
[2017-10-09 14:42] LABS: % SATURATION IRON PROFILE 11.8 % (20-50); IRON (FE) 35 MCG/DL (50-170); TOTAL IRON BINDING CAPACITY 295 MCG/DL (250-450)
[2017-10-10] VITALS: BP 135/64; PULSE 67; RESP 18; TEMP 98.4; O2SAT 95
[2017-10-10] MEDS: ACETAMINOPHEN/HYDROcodone 325 MG/7.5 MG TAB PO PRN ×3 (03:38→20:22)
[2017-10-10] MEDS: MORPHINE SULFATE 4 MG/ML INJ IV PUSH PRN ×3 (06:15→22:20)
[2017-10-10 07:00] LABS: AUTOMATED NEUTROPHIL # 8.6 TH/MM3 (1.8-7.7); BASOPHIL # 0.1 TH/MM3 (0-0.2); BASOPHIL % 0.6 % (0.0-2.0); EOSINOPHIL # 0.2 TH/MM3 (0-0.4); EOSINOPHIL % 1.7 % (0.0-4.0); HEMATOCRIT 26.1 % (35.0-46.0); HEMOGLOBIN 8.4 GM/DL (11.6-15.3); LYMPH % 10.1 % (9.0-44.0); LYMPHOCYTE # 1.1 TH/MM3 (1.0-4.8); MEAN CELL VOLUME 86.4 FL (80.0-100.0); MEAN CORPUSCULAR HEMOGLOBIN 27.9 PG (27.0-34.0); MEAN CORPUSCULAR HGB CONC 32.3 % (32.0-36.0); MEAN PLATELET VOLUME 7.9 FL (7.0-11.0); MONO % 7.2 % (0.0-8.0); MONOCYTE # 0.8 TH/MM3 (0-0.9); NEUT % 80.4 % (16.0-70.0); PLATELET COUNT 356 TH/MM3 (150-450); RED BLOOD COUNT 3.02 MIL/MM3 (4.00-5.30); RED CELL DISTRIBUTION WIDTH 16.8 % (11.6-17.2); WHITE BLOOD COUNT 10.7 TH/MM3 (4.0-11.0)
[2017-10-10 07:06] LABS: INTERNATIONAL NORMALIZED RATIO 1.3 RATIO; PROTHROMBIN TIME - PATIENT 13.4 SEC (9.8-11.6)
[2017-10-10] MEDS: DEXTROSE 5%-LACTATED RING INJ 1,000 ML IV SCH ×3 (07:46→16:02)
[2017-10-10] MEDS: VANCOMYCIN INJ 2,500 MG in SODIUM CHLORID 0.9% 500 ML INJ 500 ML IV SCH (07:46)
[2017-10-10 08:00] VITALS: BP 143/65; PULSE 62; RESP 16; TEMP 97.5; O2SAT 99
[2017-10-10] MEDS: LISINOPRIL 5 MG TAB PO SCH (10:22)
[2017-10-10] MEDS: PRAVASTATIN SOD 40 MG TAB PO SCH (10:22)
[2017-10-10] MEDS: MULTIVITAMINS/MINERALS THERAPEUTIC TAB PO SCH ×2 (10:22→20:22)
[2017-10-10] MEDS: PANTOPRAZOLE SOD 20 MG DELAYED RELEASE TAB PO SCH (10:22)
[2017-10-10] MEDS: GABAPENTIN 300 MG CAP PO SCH ×3 (10:22→17:48)
[2017-10-10] MEDS: DOCUSATE SODIUM 100 MG CAP PO SCH ×2 (10:22→20:22)
[2017-10-10] MEDS: WARFARIN SOD 5 MG TAB PO SCH (10:23)
[2017-10-10 10:35] VITALS: TEMP 99
--- NOTE | 2017-10-10 10:54 | HHI.IDPN ---
Note Infectious Disease Note Patient reports frontal headache as well as neck ache back ache and achiness in the lower extremities. Says she has pain in the back. States that the headache 10/10 scale is relieved mildly with pain medication. Reports that she gets chills and nausea. No vomiting. Temperature is lower. On O2 via NC 2L. Reports difficulty sleeping because of the constant headache. Blood culture from 10/08 has gram positive cocci. D/W RN. 61-year-old black female who recently underwent lumbar spine surgery. The patient was treated for lumbar spine stenosis. She underwent L4-L5 bilateral decompressive hemilaminectomy along with decompression of nerve root and left side L4-L5 repair of dural leak. The patient was discharged from the hospital on September 26. She started to develop some drainage from the back wound and also pain. She was taken to surgery and underwent incision and drainage of an abscess in the epidural space. PAST MEDICAL HISTORY 1. Dyslipidemia, 2. Status post laminectomy for spinal stenosis 3. Appendectomy, 4. Gastric bypass 5. Knee replacement 6. Gastroesophageal reflux disease, 7. Hysterectomy. ALLERGIES NO KNOWN DRUG ALLERGIES. ANTIBIOTIC Vancomycin. Current Medications Medications (Trade) Dose Ordered Sig/Kylah Route PRN Reason Start Time Stop Time Status Last Admin Dose Admin Dextrose/Lactated Ringer's 1,000 ml @ 150 mls/hr Q6H40M IV 10/05/17 12:00 10/10/17 07:46 Sodium Chloride (NS Flush) 5 ml UNSCH PRN IV FLUSH SEE PROTOCOL TABLE 10/05/17 14:00 10/09/17 18:29 Heparin Sodium (Porcine) (Heparin Central Flush) 250 units UNSCH PRN IV FLUSH SEE PROTOCOL TABLE 10/05/17 14:00 10/10/17 06:14 Heparin Sodium (Porcine) (Heparin Central Flush) 500 units UNSCH IV FLUSH 10/05/17 14:00 Morphine Sulfate (Morphine Inj) 5 mg Q3H PRN IV PUSH BREAKTHROUGH PAIN 10/05/17 17:00 10/10/17 06:15 Acetaminophen/ Hydrocodone Bitart ([place] 7.5-325 Mg) 1 tab Q4H PRN PO PAIN SCALE 1 TO 5 10/05/17 17:00 Multivitamins/ Minerals Therapeutic (Theragran M Tab) 1 tab BID PO 10/06/17 09:00 12/05/17 08:59 10/10/17 10:22 Ondansetron HCl (Zofran Inj) 4 mg Q6H PRN IV PUSH NAUSEA OR VOMITING 10/05/17 17:00 Al Hydrox/Mg Hydrox/Simethicone (Mag-Al Plus Susp Liq) 30 ml Q6H PRN PO INDIGESTION 10/05/17 17:00 Zolpidem Tartrate (Ambien) 5 mg HS PRN PO SLEEP 10/05/17 21:00 Bisacodyl (Dulcolax Supp) 10 mg DAILY PRN RECTAL CONSTIPATION 10/05/17 17:15 Sodium Biphosphate/ Sodium Phosphate (Fleets Enema (Adult)) 133 ml DAILY PRN [place] CONSTIPATION 10/05/17 17:15 Naloxone HCl (Narcan Inj) 0.4 mg UNSCH PRN IV PUSH RESPIRATORY RATE LESS THAN 10 10/05/17 17:00 Pravastatin Sodium (Pravachol) 40 mg DAILY PO 10/06/17 09:00 10/10/17 10:22 Pantoprazole Sodium (Protonix) 20 mg DAILY PO 10/06/17 09:00 10/10/17 10:22 Acetaminophen/ Hydrocodone Bitart ([place] 7.5-325 Mg) 2 tab Q4HR PRN PO PAIN SCALE 6 TO 10 10/06/17 09:00 10/10/17 10:21 Docusate Sodium (Colace) 100 mg BID PO 10/06/17 09:30 10/10/17 10:22 Pharmacy Profile Note 0 ml @ 0 mls/hr UNSCH OTHER 10/06/17 13:30 Gabapentin (Neurontin) 300 mg TID PO 10/07/17 09:00 10/10/17 10:22 Acetaminophen (Tylenol) 650 mg Q4H PRN PO fever > 101 10/08/17 02:45 10/09/17 07:38 Warfarin Sodium (Coumadin) GIVE 5MG IF INR < 1.2 G... DAILY@1000 PO 10/09/17 10:00 10/10/17 10:23 Vancomycin HCl 2500 mg/Sodium Chloride 525 ml @ 262.5 mls/ hr Q18H IV 10/09/17 12:00 10/10/17 07:46 Miscellaneous Information SPECIFIC LAB TO BE DRAWN:VANCO TROUGH DATE... ONCE ONCE .XX 10/11/17 17:45 10/11/17 17:46 Acetaminophen (Tylenol) 650 mg Q4H PRN PO SEE LABEL COMMENTS 10/09/17 13:15 Diphenhydramine HCl (Benadryl) 25 mg Q4H PRN PO SEE LABEL COMMENTS 10/09/17 13:15 Lisinopril (Prinivil) 5 mg DAILY PO 10/10/17 09:00 10/10/17 10:22 OBJECTIVE: Vital Signs Date Time Temp Pulse Resp B/P (MAP) Pulse Ox O2 Delivery O2 Flow Rate FiO2 10/10/17 10:35 99.0 10/10/17 08:00 97.5 62 16 143/65 (91) 99 10/10/17 00:00 98.4 67 18 135/64 (87) 95 10/09/17 21:34 99.3 70 20 133/60 95 10/09/17 20:00 99.3 70 20 133/60 (84) 95 10/09/17 18:42 99.7 70 18 125/58 (80) 96 10/09/17 18:33 16 10/09/17 18:33 16 10/09/17 16:00 99.7 73 18 163/70 (101) 100 10/09/17 12:00 99.2 78 18 141/85 (103) 94 Laboratory Tests Test 10/09/17 05:10 10/10/17 06:00 White Blood Count 11.9 TH/MM3 10.7 TH/MM3 Red Blood Count 2.83 MIL/MM3 3.02 MIL/MM3 Hemoglobin 7.8 GM/DL 8.4 GM/DL Hematocrit 24.6 % 26.1 % Mean Corpuscular Volume 86.8 FL 86.4 FL Mean Corpuscular Hemoglobin 27.7 PG 27.9 PG Mean Corpuscular Hemoglobin Concent 31.9 % 32.3 % Red Cell Distribution Width 17.3 % 16.8 % Platelet Count 362 TH/MM3 356 TH/MM3 Mean Platelet Volume 7.6 FL 7.9 FL Neutrophils (%) (Auto) 81.5 % 80.4 % Lymphocytes (%) (Auto) 9.6 % 10.1 % Monocytes (%) (Auto) 8.2 % 7.2 % Eosinophils (%) (Auto) 0.3 % 1.7 % Basophils (%) (Auto) 0.4 % 0.6 % Neutrophils # (Auto) 9.7 TH/MM3 8.6 TH/MM3 Lymphocytes # (Auto) 1.1 TH/MM3 1.1 TH/MM3 Monocytes # (Auto) 1.0 TH/MM3 0.8 TH/MM3 Eosinophils # (Auto) 0.0 TH/MM3 0.2 TH/MM3 Basophils # (Auto) 0.0 TH/MM3 0.1 TH/MM3 CBC Comment DIFF FINAL DIFF FINAL Differential Comment Laboratory Tests Test 10/09/17 05:10 10/09/17 13:55 Creatinine 0.78 MG/DL Estimat Glomerular Filtration Rate 91 ML/MIN Iron Level 35 MCG/DL Total Iron Binding Capacity 295 MCG/DL Percent Iron Saturation 11.8 % Microbiology Date/Time Source Procedure Growth Status 10/09/17 13:55 Blood Peripheral Aerobic Blood Culture Pending Received 10/09/17 13:55 Blood Peripheral Anaerobic Blood Culture Pending Received 10/09/17 13:50 Blood Peripheral Aerobic Blood Culture Pending Received 10/09/17 13:50 Blood Peripheral Anaerobic Blood Culture Pending Received 10/08/17 16:30 Blood Peripheral Aerobic Blood Culture - Preliminary NO GROWTH IN 1 DAY Resulted 10/08/17 16:30 Blood Peripheral Anaerobic Blood Culture - Final QNS - SEE AEROBE REPORT Resulted 10/08/17 03:43 Blood Peripheral Aerobic Blood Culture - Preliminary Gram Positive Cocci Resulted 10/08/17 03:43 Anaerobic Blood Culture - Preliminary Gram Positive Cocci Resulted PHYSICAL EXAMINATION GENERAL: Patient appears somnolent. No acute distress. Mild conjunctival erythema.. HEENT: Extraocular movements grossly intact. No icterus. Oropharynx moist mucosa without lesions. NECK: Supple without adenopathy. LUNGS: Decreased breath sounds. HEART: Regular S1, S2 without murmurs, rubs or gallops. ABDOMEN: Bowel sounds present, soft, no tenderness appreciated. BACK: No tenderness appreciated. EXTREMITIES: No clubbing or cyanosis or edema. SKIN: No rash. NEUROLOGIC: No gross focal findings. PSYCHIATRIC: Calm and cooperative. IMPRESSION 1. Lumbar abscess. MRSA. 2. Fever. Bacteremia - Gram positive cocci. CXR unremarkable. UA unremarkable. 3. Postoperative wound infection of the lumbar spine. 4. Post laminectomy and repair of epidural tear 5. FOLEY - ? medicine related. Potentially could have headache related to the prior dural leak. 6. The white blood cell count is improving. We may want to consider potentially doing a patch test if the headaches continue since it may be related to the dural leak repair. RECOMMENDATIONS 1. Continue vancomycin for MRSA. 2. Follow the blood cultures. 3. Monitor the white blood cell count. 4. Monitor renal function. Improving. 5. Monitor temperature. 6. Monitor clinical status. Plan on 6 weeks of IV vancomycin since the epidura was involved. Shukri Naqvi MD Oct 10, 2017 10:54
--- NOTE | 2017-10-10 11:13 | PD.ORT.PN ---
Subjective Subjective Remarks pod #5 s/p lumbar spine I&D with MRSA infection: intra-op findings did not show evidence of epidural abscess pt still has significant headache, no alleviating factors pt has hx of chronic pain syndrome Objective Vitals Vital Signs Date Time Temp Pulse Resp B/P (MAP) Pulse Ox O2 Delivery O2 Flow Rate FiO2 10/10/17 10:35 99.0 10/10/17 08:00 97.5 62 16 143/65 (91) 99 10/10/17 00:00 98.4 67 18 135/64 (87) 95 10/09/17 21:34 99.3 70 20 133/60 95 10/09/17 20:00 99.3 70 20 133/60 (84) 95 10/09/17 18:42 99.7 70 18 125/58 (80) 96 10/09/17 18:33 16 10/09/17 18:33 16 10/09/17 16:00 99.7 73 18 163/70 (101) 100 10/09/17 12:00 99.2 78 18 141/85 (103) 94 I/O 10/09/17 10/09/17 10/09/17 10/10/17 210/10/17 07:00 15:00 23:00 07:00 15:00 23:00 Intake Total 760 ml 760 ml 1120 ml Output Total 3000 ml 5700 ml 1650 ml Balance -2240 ml -4940 ml -530 ml Intake Oral 760 ml 360 ml 120 ml IV Total 1000 ml Packed Cells 400 ml Output Urine Total 3000 ml 5700 ml 1650 ml # Bowel Movements 0 0 Result Diagram: 10/10/17 0600 10/09/17 0510 Other Results Laboratory Tests Test 10/10/17 06:00 Prothromb Time International Ratio 1.3 RATIO Prothrombin Time 13.4 SEC (9.8-11.6) Objective Remarks Lumbar spine wound dressings are dry with no evidence of drainage Neurologically no focal deficit. Assessment & Plan Assessment and Plan pod #5 s/p lumbar spine I&D with MRSA infection: intra-op findings did not show evidence of epidural abscess continue IV vancomycin per I.D. continue bedrest for at least 1-3 additional days coumadin 10 mg today, already received 5 mg, will order additional 5 mg anticipate d/c to SNF when stable Shannan Palacios Oct 10, 2017 11:13
--- NOTE | 2017-10-10 11:58 | HHI.PR ---
Subjective Remarks Follow-up lumbar epidural abscess 10/09/17-patient seen and examined, spiking fevers, denies any significant back pain. No nausea and vomiting with by mouth intake 10/10/17-patient seen and examined, continue to complain of severe back pain. Objective Vitals Vital Signs Date Time Temp Pulse Resp B/P (MAP) Pulse Ox O2 Delivery O2 Flow Rate FiO2 10/10/17 10:35 99.0 10/10/17 08:00 97.5 62 16 143/65 (91) 99 10/10/17 00:00 98.4 67 18 135/64 (87) 95 10/09/17 21:34 99.3 70 20 133/60 95 10/09/17 20:00 99.3 70 20 133/60 (84) 95 10/09/17 18:42 99.7 70 18 125/58 (80) 96 10/09/17 18:33 16 10/09/17 18:33 16 10/09/17 16:00 99.7 73 18 163/70 (101) 100 10/09/17 12:00 99.2 78 18 141/85 (103) 94 I/O 10/09/17 10/09/17 10/09/17 10/10/17 10/10/17 10/10/17 06:59 14:59 22:59 06:59 14:59 22:59 Intake Total 760 ml 760 ml 1120 ml Output Total 3000 ml 5700 ml 1650 ml Balance -2240 ml -4940 ml -530 ml Intake Oral 760 ml 360 ml 120 ml IV Total 1000 ml Packed Cells 400 ml Output Urine Total 3000 ml 5700 ml 1650 ml # Bowel Movements 0 0 Result Diagram: 10/10/17 0600 10/09/17 0510 Objective Remarks GENERAL: NAD SKIN: Warm and dry. HEAD: Normocephalic. EYES: No scleral icterus. No injection or drainage. NECK: Supple, trachea midline. No JVD or lymphadenopathy. CARDIOVASCULAR: Regular rate and rhythm without murmurs, gallops, or rubs. RESPIRATORY: Breath sounds equal bilaterally. No accessory muscle use. GASTROINTESTINAL: Abdomen soft, non-tender, nondistended. MUSCULOSKELETAL: No cyanosis, or edema. BACK: Nontender without obvious deformity. No CVA tenderness. Procedures s/p I&D lumbar epidural abscess A/P Problem List: (1) Abscess in epidural space of lumbar spine ICD Code: G06.1 - Intraspinal abscess and granuloma (2) Gram-positive bacteremia ICD Code: R78.81 - Bacteremia Assessment and Plan 61-year-old female with Abscess in the epidural space of lumbar spine s/p irrigation and debridement and redo laminectomy L4-5 by orthopedic surgery Wound positive for MRSA Currently on vancomycin 6 weeks per ID Check blood culture secondary to febrile episodes Pain management accordingly Continue with bed rest 1-3 days per orthopedic surgery Gram-positive bacteremia Currently on vancomycin Repeat blood culture negative to date Normochromic normocytic anemia Transfused 1 unit packed red blood cell afebrile he 03/01/18 Monitor H&H Start ferrous sulfate for iron deficiency anemia Dyslipidemia Continue statin Hypertension Continue Lisinopril 5mg daily -DVT prophylaxis:on Coumadin- per ortho. Jonh Jeff MD Oct 10, 2017 11:58
[2017-10-10 12:00] VITALS: BP 154/66; PULSE 68; RESP 16; TEMP 98.5; O2SAT 98
[2017-10-10 16:00] VITALS: BP 157/72; PULSE 69; RESP 17; TEMP 100; O2SAT 97
[2017-10-10] MEDS ORDERED: WARFARIN SOD 5 MG TAB PO ONE (16:00)
[2017-10-10 20:00] VITALS: BP 139/67; PULSE 66; RESP 20; TEMP 100.3; O2SAT 95
[2017-10-10] MEDS: FERROUS SULFATE 325 MG (65 MG ELEMENTAL IRON) TAB PO SCH (20:22)
[2017-10-11] VITALS: BP 126/58; PULSE 61; RESP 20; TEMP 99.2; O2SAT 97
[2017-10-11] MEDS: DEXTROSE 5%-LACTATED RING INJ 1,000 ML IV SCH ×4 (00:07→21:20)
[2017-10-11] MEDS: VANCOMYCIN INJ 2,500 MG in SODIUM CHLORID 0.9% 500 ML INJ 500 ML IV SCH ×2 (00:07→18:06)
[2017-10-11] MEDS: ACETAMINOPHEN/HYDROcodone 325 MG/7.5 MG TAB PO PRN ×5 (00:15→20:44)
[2017-10-11] MEDS: MORPHINE SULFATE 4 MG/ML INJ IV PUSH PRN ×5 (01:45→22:07)
[2017-10-11] MEDS: SODIUM CHLORIDE 0.9% FLUSH 10 ML FLUSH IV FLUSH PRN (07:48)
[2017-10-11] MEDS: MULTIVITAMINS/MINERALS THERAPEUTIC TAB PO SCH ×2 (07:48→20:44)
[2017-10-11] MEDS: FERROUS SULFATE 325 MG (65 MG ELEMENTAL IRON) TAB PO SCH ×2 (07:49→20:44)
[2017-10-11] MEDS: LISINOPRIL 5 MG TAB PO SCH (07:49)
[2017-10-11] MEDS: PANTOPRAZOLE SOD 20 MG DELAYED RELEASE TAB PO SCH (07:49)
[2017-10-11] MEDS: GABAPENTIN 300 MG CAP PO SCH ×3 (07:49→18:06)
[2017-10-11] MEDS: PRAVASTATIN SOD 40 MG TAB PO SCH (07:49)
[2017-10-11] MEDS: DOCUSATE SODIUM 100 MG CAP PO SCH ×2 (07:50→20:44)
[2017-10-11 08:00] VITALS: BP 134/62; PULSE 66; RESP 16; TEMP 99; O2SAT 97
[2017-10-11 09:07] LABS: PROTHROMBIN TIME - PATIENT 19.8 SEC (9.8-11.6)
[2017-10-11 09:45] LABS: CREATININE 0.77 MG/DL (0.50-1.00)
--- NOTE | 2017-10-11 10:00 | HHI.PR ---
Subjective Remarks Follow-up lumbar epidural abscess 10/09/17-patient seen and examined, spiking fevers, denies any significant back pain. No nausea and vomiting with by mouth intake 10/10/17-patient seen and examined, continue to complain of severe back pain. 10/11/17-patient seen and examined, still continued to complain of headaches and reports some improvement of back pain Objective Vitals Vital Signs Date Time Temp Pulse Resp B/P (MAP) Pulse Ox O2 Delivery O2 Flow Rate FiO2 10/11/17 08:00 16 10/11/17 08:00 99.0 66 16 134/62 (86) 97 10/11/17 04:59 Nasal Cannula 2.00 10/11/17 00:00 99.2 61 20 126/58 (80) 97 10/10/17 20:00 100.3 66 20 139/67 (91) 95 10/10/17 16:00 100.0 69 17 157/72 (100) 97 10/10/17 12:00 98.5 68 16 154/66 (95) 98 10/10/17 10:35 99.0 I/O 10/10/17 10/10/17 10/10/17 10/11/17 10/11/17 10/11/17 07:00 15:00 23:00 07:00 15:00 23:00 Intake Total 1120 ml 525 ml 1000 ml 0 ml Output Total 1650 ml 2800 ml 1150 ml Balance -530 ml 525 ml -1800 ml -1150 ml Intake Oral 120 ml 0 ml 0 ml IV Total 1000 ml 525 ml 1000 ml Output Urine Total 1650 ml 2800 ml 1150 ml # Bowel Movements 0 0 0 Result Diagram: 10/10/17 0600 10/11/17 0820 Objective Remarks GENERAL: NAD SKIN: Warm and dry. HEAD: Normocephalic. EYES: No scleral icterus. No injection or drainage. NECK: Supple, trachea midline. No JVD or lymphadenopathy. CARDIOVASCULAR: Regular rate and rhythm without murmurs, gallops, or rubs. RESPIRATORY: Breath sounds equal bilaterally. No accessory muscle use. GASTROINTESTINAL: Abdomen soft, non-tender, nondistended. MUSCULOSKELETAL: No cyanosis, or edema. BACK: Nontender without obvious deformity. No CVA tenderness. Procedures s/p I&D lumbar epidural abscess A/P Problem List: (1) Abscess in epidural space of lumbar spine ICD Code: G06.1 - Intraspinal abscess and granuloma (2) Gram-positive bacteremia ICD Code: R78.81 - Bacteremia Assessment and Plan 61-year-old female with Abscess in the epidural space of lumbar spine s/p irrigation and debridement and redo laminectomy L4-5 by orthopedic surgery Wound positive for MRSA Currently on vancomycin 6 weeks per ID Check blood culture secondary to febrile episodes Pain management accordingly Continue with bed rest 1-3 days per orthopedic surgery Headache ?dural leak May need patch test Gram-positive bacteremia Currently on vancomycin Repeat blood culture negative to date Normochromic normocytic anemia Transfused 1 unit packed red blood cell afebrile he 20 03/01/18 Monitor H&H continue ferrous sulfate for iron deficiency anemia Dyslipidemia Continue statin Hypertension Continue Lisinopril 5mg daily -DVT prophylaxis:on Coumadin- per Jonh Garcia MD Oct 11, 2017 10:00
[2017-10-11] MEDS: WARFARIN SOD 5 MG TAB PO SCH (10:50)
[2017-10-11 12:00] VITALS: BP 144/65; PULSE 62; RESP 16; TEMP 97.3; O2SAT 100
--- NOTE | 2017-10-11 13:44 | PD.ORT.PN ---
Subjective Subjective Remarks POD# 6 Lumbar spine I&D MRSA complaining of mild low back pain, no leg pain, no complaints of numbness or tingling pt states she is not hungry, no complaints of abdominal pain, no SOB, no chest pain Objective Vitals Vital Signs Date Time Temp Pulse Resp B/P (MAP) Pulse Ox O2 Delivery O2 Flow Rate FiO2 10/11/17 12:00 97.3 62 16 144/65 (91) 100 10/11/17 08:00 16 10/11/17 08:00 99.0 66 16 134/62 (86) 97 10/11/17 04:59 Nasal Cannula 2.00 10/11/17 00:00 99.2 61 20 126/58 (80) 97 10/10/17 20:00 100.3 66 20 139/67 (91) 95 10/10/17 16:00 100.0 69 17 157/72 (100) 97 I/O 10/10/17 10/10/17 10/10/17 10/11/17 10/11/17 10/11/17 07:00 15:00 23:00 07:00 15:00 23:00 Intake Total 1120 ml 525 ml 1000 ml 0 ml Output Total 1650 ml 2800 ml 1150 ml Balance -530 ml 525 ml -1800 ml -1150 ml Intake Oral 120 ml 0 ml 0 ml IV Total 1000 ml 525 ml 1000 ml Output Urine Total 1650 ml 2800 ml 1150 ml # Bowel Movements 0 0 0 Result Diagram: 10/10/17 0600 10/11/17 0820 Other Results Laboratory Tests Test 10/11/17 08:20 Prothromb Time International Ratio 2.0 RATIO Prothrombin Time 19.8 SEC (9.8-11.6) Objective Remarks Lumbar spine wound dressings are dry with no evidence of drainage Neurologically no focal deficit. Assessment & Plan Assessment and Plan pod #6 s/p lumbar spine I&D with MRSA infection: intra-op findings did not show evidence of epidural abscess continue IV vancomycin per I.D. d/c bedrest, PT ordered for out of bed with assistive ambulation order put in to d/c alfonso at 7am on sunday/ HOLD coumadin for INR above 1.5 per sliding scale anticipate d/c to SNF when medically stable Dylan Martin MD Oct 11, 2017 13:44
[2017-10-11 16:00] VITALS: BP 157/73; PULSE 62; RESP 17; TEMP 98.5; O2SAT 99
--- NOTE | 2017-10-11 16:20 | HHI.IDPN ---
Note Infectious Disease Note Orthopedic note review shows that she did not have epidural abscess. Patient notes that her headache is better today. She reports that she still has some pain in the back. No neck stiffness. The temperature is lower. Now down to normal. On O2 via NC 2L. Blood culture from 10/08 has staph epidermidis and coag negative staph in one set. Culture from 10/09 has no growth. 61-year-old black female who recently underwent lumbar spine surgery. The patient was treated for lumbar spine stenosis. She underwent L4-L5 bilateral decompressive hemilaminectomy along with decompression of nerve root and left side L4-L5 repair of dural leak. The patient was discharged from the hospital on September 26. She was taken to surgery and underwent incision and drainage of an lumbar abscess. PAST MEDICAL HISTORY 1. Dyslipidemia, 2. Status post laminectomy for spinal stenosis 3. Appendectomy, 4. Gastric bypass 5. Knee replacement 6. Gastroesophageal reflux disease, 7. Hysterectomy. ALLERGIES NO KNOWN DRUG ALLERGIES. ANTIBIOTIC Vancomycin. Current Medications Medications (Trade) Dose Ordered Sig/Kylah Route PRN Reason Start Time Stop Time Status Last Admin Dose Admin Dextrose/Lactated Ringer's 1,000 ml @ 150 mls/hr Q6H40M IV 10/05/17 12:00 10/11/17 10:50 Sodium Chloride (NS Flush) 5 ml UNSCH PRN IV FLUSH SEE PROTOCOL TABLE 10/05/17 14:00 10/11/17 07:48 Heparin Sodium (Porcine) (Heparin Central Flush) 250 units UNSCH PRN IV FLUSH SEE PROTOCOL TABLE 10/05/17 14:00 10/11/17 06:05 Heparin Sodium (Porcine) (Heparin Central Flush) 500 units UNSCH IV FLUSH 10/05/17 14:00 Morphine Sulfate (Morphine Inj) 5 mg Q3H PRN IV PUSH BREAKTHROUGH PAIN 10/05/17 17:00 10/11/17 12:41 Acetaminophen/ Hydrocodone Bitart ([place] 7.5-325 Mg) 1 tab Q4H PRN PO PAIN SCALE 1 TO 5 10/05/17 17:00 Multivitamins/ Minerals Therapeutic (Theragran M Tab) 1 tab BID PO 10/06/17 09:00 12/05/17 08:59 10/11/17 07:48 Ondansetron HCl (Zofran Inj) 4 mg Q6H PRN IV PUSH NAUSEA OR VOMITING 2/23/18 17:00 Al Hydrox/Mg Hydrox/Simethicone (Mag-Al Plus Susp Liq) 30 ml Q6H PRN PO INDIGESTION 10/05/17 17:00 Zolpidem Tartrate (Ambien) 5 mg HS PRN PO SLEEP 10/05/17 21:00 Bisacodyl (Dulcolax Supp) 10 mg DAILY PRN RECTAL CONSTIPATION 10/05/17 17:15 Sodium Biphosphate/ Sodium Phosphate (Fleets Enema (Adult)) 133 ml DAILY PRN [place] CONSTIPATION 10/05/17 17:15 Naloxone HCl (Narcan Inj) 0.4 mg UNSCH PRN IV PUSH RESPIRATORY RATE LESS THAN 10 10/05/17 17:00 Pravastatin Sodium (Pravachol) 40 mg DAILY PO 10/06/17 09:00 10/11/17 07:49 Pantoprazole Sodium (Protonix) 20 mg DAILY PO 10/06/17 09:00 10/11/17 07:49 Acetaminophen/ Hydrocodone Bitart ([place] 7.5-325 Mg) 2 tab Q4HR PRN PO PAIN SCALE 6 TO 10 10/06/17 09:00 10/11/17 15:59 Docusate Sodium (Colace) 100 mg BID PO 10/06/17 09:30 10/11/17 07:50 Pharmacy Profile Note 0 ml @ 0 mls/hr UNSCH OTHER 10/06/17 13:30 Gabapentin (Neurontin) 300 mg TID PO 10/07/17 09:00 10/11/17 12:41 Acetaminophen (Tylenol) 650 mg Q4H PRN PO fever > 101 10/08/17 02:45 10/09/17 07:38 Warfarin Sodium (Coumadin) GIVE 5MG IF INR < 1.2 G... DAILY@1000 PO 10/09/17 10:00 10/11/17 10:50 Vancomycin HCl 2500 mg/Sodium Chloride 525 ml @ 262.5 mls/ hr Q18H IV 10/09/17 12:00 10/11/17 00:07 Miscellaneous Information SPECIFIC LAB TO BE DRAWN:VANCO TROUGH DATE... ONCE ONCE .XX 10/11/17 17:45 10/11/17 17:46 Acetaminophen (Tylenol) 650 mg Q4H PRN PO SEE LABEL COMMENTS 10/09/17 13:15 Diphenhydramine HCl (Benadryl) 25 mg Q4H PRN PO SEE LABEL COMMENTS 10/09/17 13:15 Lisinopril (Prinivil) 5 mg DAILY PO 10/10/17 09:00 10/11/17 07:49 Ferrous Sulfate (Ferrous Sulfate) 325 mg BID PO 10/10/17 21:00 10/11/17 07:49 OBJECTIVE: Laboratory Tests Test 10/10/17 06:00 White Blood Count 10.7 TH/MM3 Red Blood Count 3.02 MIL/MM3 Hemoglobin 8.4 GM/DL Hematocrit 26.1 % Mean Corpuscular Volume 86.4 FL Mean Corpuscular Hemoglobin 27.9 PG Mean Corpuscular Hemoglobin Concent 32.3 % Red Cell Distribution Width 16.8 % Platelet Count 356 TH/MM3 Mean Platelet Volume 7.9 FL Neutrophils (%) (Auto) 80.4 % Lymphocytes (%) (Auto) 10.1 % Monocytes (%) (Auto) 7.2 % Eosinophils (%) (Auto) 1.7 % Basophils (%) (Auto) 0.6 % Neutrophils # (Auto) 8.6 TH/MM3 Lymphocytes # (Auto) 1.1 TH/MM3 Monocytes # (Auto) 0.8 TH/MM3 Eosinophils # (Auto) 0.2 TH/MM3 Basophils # (Auto) 0.1 TH/MM3 CBC Comment DIFF FINAL Differential Comment Laboratory Tests Test 10/11/17 08:20 Creatinine 0.77 MG/DL Estimat Glomerular Filtration Rate 93 ML/MIN Microbiology Date/Time Source Procedure Growth Status 10/09/17 13:55 Blood Peripheral Aerobic Blood Culture - Preliminary NO GROWTH IN 2 DAYS Resulted 10/09/17 13:55 Blood Peripheral Anaerobic Blood Culture - Preliminary NO GROWTH IN 2 DAYS Resulted 10/09/17 13:50 Blood Peripheral Aerobic Blood Culture - Preliminary NO GROWTH IN 2 DAYS Resulted 10/09/17 13:50 Blood Peripheral Anaerobic Blood Culture - Preliminary NO GROWTH IN 2 DAYS Resulted 10/08/17 16:30 Blood Peripheral Aerobic Blood Culture - Preliminary NO GROWTH IN 3 DAYS Resulted 10/08/17 16:30 Blood Peripheral Anaerobic Blood Culture - Final QNS - SEE AEROBE REPORT Resulted IMAGING: Chest X-Ray 10/08/17 0000 Signed Impressions: Service Date/Time: Sunday, October 08, 2017 05:16 - CONCLUSION: 1. Low lung volumes with mild patchy bilateral lower lung zone airspace disease, likely atelectasis. Foreign Blancas MD PHYSICAL EXAMINATION GENERAL: Awake and alert. No acute distress. HEENT: Extraocular movements grossly intact. No icterus. Oropharynx moist mucosa without lesions. NECK: Supple without adenopathy. LUNGS: Decreased breath sounds. HEART: Regular S1, S2 without murmurs, rubs or gallops. ABDOMEN: Bowel sounds present, soft, no tenderness. BACK: No tenderness appreciated. EXTREMITIES: No clubbing or cyanosis or edema. SKIN: No rash. NEUROLOGIC: No gross focal findings. PSYCHIATRIC: Calm and cooperative. IMPRESSION 1. Lumbar spine abscess. MRSA. 2. Fever. Bacteremia - Gram positive cocci. CXR unremarkable. UA unremarkable. 3. Postoperative wound infection of the lumbar spine. 4. Post laminectomy and repair of epidural tear. 5. FOLEY - ? medicine related. Improved. 6. The white blood cell count is improved. RECOMMENDATIONS 1. Continue vancomycin for MRSA. 2. Follow the blood cultures. 3. Monitor temperature. 4. Monitor renal function. Improving. 5. Monitor clinical status. Plan on 4 weeks of IV vancomycin since the epidura was not involved. Shukri Naqvi MD Oct 11, 2017 16:20
--- NOTE | 2017-10-11 16:28 | HHI.IDPN ---
Note Infectious Disease Note Orthopedic note review shows that she did not have epidural abscess. Patient notes that her headache is better today. She reports that she still has some pain in the back. No neck stiffness. The temperature is lower. Now down to normal. On O2 via NC 2L. Blood culture from 10/08 has staph epidermidis and coag negative staph in one set. Culture from 10/09 has no growth. 61-year-old black female who recently underwent lumbar spine surgery. The patient was treated for lumbar spine stenosis. She underwent L4-L5 bilateral decompressive hemilaminectomy along with decompression of nerve root and left side L4-L5 repair of dural leak. The patient was discharged from the hospital on September 26. She was taken to surgery and underwent incision and drainage of an lumbar abscess. PAST MEDICAL HISTORY 1. Dyslipidemia, 2. Status post laminectomy for spinal stenosis 3. Appendectomy, 4. Gastric bypass 5. Knee replacement 6. Gastroesophageal reflux disease, 7. Hysterectomy. ALLERGIES NO KNOWN DRUG ALLERGIES. ANTIBIOTIC Vancomycin. Current Medications Medications (Trade) Dose Ordered Sig/Kylah Route PRN Reason Start Time Stop Time Status Last Admin Dose Admin Dextrose/Lactated Ringer's 1,000 ml @ 150 mls/hr Q6H40M IV 10/05/17 12:00 10/11/17 10:50 Sodium Chloride (NS Flush) 5 ml UNSCH PRN IV FLUSH SEE PROTOCOL TABLE 10/05/17 14:00 10/11/17 07:48 Heparin Sodium (Porcine) (Heparin Central Flush) 250 units UNSCH PRN IV FLUSH SEE PROTOCOL TABLE 10/05/17 14:00 10/11/17 06:05 Heparin Sodium (Porcine) (Heparin Central Flush) 500 units UNSCH IV FLUSH 10/05/17 14:00 Morphine Sulfate (Morphine Inj) 5 mg Q3H PRN IV PUSH BREAKTHROUGH PAIN 10/05/17 17:00 10/11/17 12:41 Acetaminophen/ Hydrocodone Bitart ([place] 7.5-325 Mg) 1 tab Q4H PRN PO PAIN SCALE 1 TO 5 10/05/17 17:00 Multivitamins/ Minerals Therapeutic (Theragran M Tab) 1 tab BID PO 10/06/17 09:00 12/05/17 08:59 10/11/17 07:48 Ondansetron HCl (Zofran Inj) 4 mg Q6H PRN IV PUSH NAUSEA OR VOMITING 2/23/18 17:00 Al Hydrox/Mg Hydrox/Simethicone (Mag-Al Plus Susp Liq) 30 ml Q6H PRN PO INDIGESTION 10/05/17 17:00 Zolpidem Tartrate (Ambien) 5 mg HS PRN PO SLEEP 10/05/17 21:00 Bisacodyl (Dulcolax Supp) 10 mg DAILY PRN RECTAL CONSTIPATION 10/05/17 17:15 Sodium Biphosphate/ Sodium Phosphate (Fleets Enema (Adult)) 133 ml DAILY PRN [place] CONSTIPATION 10/05/17 17:15 Naloxone HCl (Narcan Inj) 0.4 mg UNSCH PRN IV PUSH RESPIRATORY RATE LESS THAN 10 10/05/17 17:00 Pravastatin Sodium (Pravachol) 40 mg DAILY PO 10/06/17 09:00 10/11/17 07:49 Pantoprazole Sodium (Protonix) 20 mg DAILY PO 10/06/17 09:00 10/11/17 07:49 Acetaminophen/ Hydrocodone Bitart ([place] 7.5-325 Mg) 2 tab Q4HR PRN PO PAIN SCALE 6 TO 10 10/06/17 09:00 10/11/17 15:59 Docusate Sodium (Colace) 100 mg BID PO 10/06/17 09:30 10/11/17 07:50 Pharmacy Profile Note 0 ml @ 0 mls/hr UNSCH OTHER 10/06/17 13:30 Gabapentin (Neurontin) 300 mg TID PO 10/07/17 09:00 10/11/17 12:41 Acetaminophen (Tylenol) 650 mg Q4H PRN PO fever > 101 10/08/17 02:45 10/09/17 07:38 Warfarin Sodium (Coumadin) GIVE 5MG IF INR < 1.2 G... DAILY@1000 PO 10/09/17 10:00 10/11/17 10:50 Vancomycin HCl 2500 mg/Sodium Chloride 525 ml @ 262.5 mls/ hr Q18H IV 10/09/17 12:00 10/11/17 00:07 Miscellaneous Information SPECIFIC LAB TO BE DRAWN:VANCO TROUGH DATE... ONCE ONCE .XX 10/11/17 17:45 10/11/17 17:46 Acetaminophen (Tylenol) 650 mg Q4H PRN PO SEE LABEL COMMENTS 10/09/17 13:15 Diphenhydramine HCl (Benadryl) 25 mg Q4H PRN PO SEE LABEL COMMENTS 10/09/17 13:15 Lisinopril (Prinivil) 5 mg DAILY PO 10/10/17 09:00 10/11/17 07:49 Ferrous Sulfate (Ferrous Sulfate) 325 mg BID PO 10/10/17 21:00 10/11/17 07:49 OBJECTIVE: Laboratory Tests Test 10/10/17 06:00 White Blood Count 10.7 TH/MM3 Red Blood Count 3.02 MIL/MM3 Hemoglobin 8.4 GM/DL Hematocrit 26.1 % Mean Corpuscular Volume 86.4 FL Mean Corpuscular Hemoglobin 27.9 PG Mean Corpuscular Hemoglobin Concent 32.3 % Red Cell Distribution Width 16.8 % Platelet Count 356 TH/MM3 Mean Platelet Volume 7.9 FL Neutrophils (%) (Auto) 80.4 % Lymphocytes (%) (Auto) 10.1 % Monocytes (%) (Auto) 7.2 % Eosinophils (%) (Auto) 1.7 % Basophils (%) (Auto) 0.6 % Neutrophils # (Auto) 8.6 TH/MM3 Lymphocytes # (Auto) 1.1 TH/MM3 Monocytes # (Auto) 0.8 TH/MM3 Eosinophils # (Auto) 0.2 TH/MM3 Basophils # (Auto) 0.1 TH/MM3 CBC Comment DIFF FINAL Differential Comment Laboratory Tests Test 10/11/17 08:20 Creatinine 0.77 MG/DL Estimat Glomerular Filtration Rate 93 ML/MIN Microbiology Date/Time Source Procedure Growth Status 10/09/17 13:55 Blood Peripheral Aerobic Blood Culture - Preliminary NO GROWTH IN 2 DAYS Resulted 10/09/17 13:55 Blood Peripheral Anaerobic Blood Culture - Preliminary NO GROWTH IN 2 DAYS Resulted 10/09/17 13:50 Blood Peripheral Aerobic Blood Culture - Preliminary NO GROWTH IN 2 DAYS Resulted 10/09/17 13:50 Blood Peripheral Anaerobic Blood Culture - Preliminary NO GROWTH IN 2 DAYS Resulted 10/08/17 16:30 Blood Peripheral Aerobic Blood Culture - Preliminary NO GROWTH IN 3 DAYS Resulted 10/08/17 16:30 Blood Peripheral Anaerobic Blood Culture - Final QNS - SEE AEROBE REPORT Resulted IMAGING: Chest X-Ray 10/08/17 0000 Signed Impressions: Service Date/Time: Sunday, October 08, 2017 05:16 - CONCLUSION: 1. Low lung volumes with mild patchy bilateral lower lung zone airspace disease, likely atelectasis. Foreign Blancas MD PHYSICAL EXAMINATION GENERAL: Awake and alert. No acute distress. HEENT: Extraocular movements grossly intact. No icterus. Oropharynx moist mucosa without lesions. NECK: Supple without adenopathy. LUNGS: Decreased breath sounds. HEART: Regular S1, S2 without murmurs, rubs or gallops. ABDOMEN: Bowel sounds present, soft, no tenderness. BACK: No tenderness appreciated. EXTREMITIES: No clubbing or cyanosis or edema. SKIN: No rash. NEUROLOGIC: No gross focal findings. PSYCHIATRIC: Calm and cooperative. IMPRESSION 1. Lumbar abscess. MRSA. 2. Fever. Bacteremia - Gram positive cocci. CXR unremarkable. UA unremarkable. 3. Postoperative wound infection of the lumbar spine. 4. Post laminectomy and repair of epidural tear. 5. FOLEY - ? medicine related. Improved. 6. The white blood cell count is improved. RECOMMENDATIONS 1. Continue vancomycin for MRSA. 2. Follow the blood cultures. 3. Monitor temperature. 4. Monitor renal function. Improving. 5. Monitor clinical status. 6. Obtain sedimentation rate. Antibiotic duration to be determined. Since the epidural Space was not involved, she may require less than 6 weeks of IV antibiotics. Shukri Naqvi MD Oct 11, 2017 16:28
[2017-10-11] MEDS ORDERED: PHARMACY ORDERED LAB ONE (17:45)
[2017-10-11 20:00] VITALS: BP 124/58; PULSE 67; RESP 18; TEMP 98.3; O2SAT 98
[2017-10-12] VITALS: BP 119/57; PULSE 62; RESP 18; TEMP 98.3; O2SAT 92
[2017-10-12] MEDS: ACETAMINOPHEN/HYDROcodone 325 MG/7.5 MG TAB PO PRN ×3 (01:43→17:21)
[2017-10-12] MEDS: MORPHINE SULFATE 4 MG/ML INJ IV PUSH PRN ×4 (02:47→19:52)
[2017-10-12] MEDS: DEXTROSE 5%-LACTATED RING INJ 1,000 ML IV SCH ×3 (04:00→17:20)
[2017-10-12 08:00] VITALS: BP 142/60; PULSE 74; RESP 18; TEMP 99.1; O2SAT 93
[2017-10-12] MEDS: GABAPENTIN 300 MG CAP PO SCH ×3 (08:56→17:21)
[2017-10-12] MEDS: FERROUS SULFATE 325 MG (65 MG ELEMENTAL IRON) TAB PO SCH ×2 (08:56→19:52)
[2017-10-12] MEDS: LISINOPRIL 5 MG TAB PO SCH (08:56)
[2017-10-12] MEDS: MULTIVITAMINS/MINERALS THERAPEUTIC TAB PO SCH ×2 (08:56→19:52)
[2017-10-12] MEDS: DOCUSATE SODIUM 100 MG CAP PO SCH ×2 (08:56→19:52)
[2017-10-12] MEDS: WARFARIN SOD 5 MG TAB PO SCH (08:56)
[2017-10-12] MEDS: PRAVASTATIN SOD 40 MG TAB PO SCH (08:56)
[2017-10-12] MEDS: PANTOPRAZOLE SOD 20 MG DELAYED RELEASE TAB PO SCH (08:56)
--- NOTE | 2017-10-12 10:15 | HHI.PR ---
Subjective Remarks Follow-up lumbar epidural abscess 10/09/17-patient seen and examined, spiking fevers, denies any significant back pain. No nausea and vomiting with by mouth intake 10/10/17-patient seen and examined, continue to complain of severe back pain. 10/11/17-patient seen and examined, still continued to complain of headaches and reports some improvement of back pain 10/12/17-patient seen and examined, reports some improving of FOLEY, and complains of now severe BLE pain Objective Vitals Vital Signs Date Time Temp Pulse Resp B/P (MAP) Pulse Ox O2 Delivery O2 Flow Rate FiO2 10/12/17 08:25 96 2.00 10/12/17 08:00 99.1 74 18 142/60 (87) 93 10/12/17 00:00 98.3 62 18 119/57 (77) 92 10/11/17 20:42 98 Nasal Cannula 2.00 10/11/17 20:00 98.3 67 18 124/58 (80) 98 10/11/17 18:12 18 10/11/17 16:00 98.5 62 17 157/73 (101) 99 10/11/17 12:00 97.3 62 16 144/65 (91) 100 10/11/17 11:51 18 I/O 10/11/17 10/11/17 10/11/17 10/12/17 10/12/17 10/12/17 07:00 15:00 23:00 07:00 15:00 23:00 Intake Total 0 ml 300 ml 100 ml Output Total 1150 ml 1200 ml 1000 ml Balance -1150 ml -900 ml -900 ml Intake Oral 0 ml 300 ml IV Total 100 ml Output Urine Total 1150 ml 1200 ml 1000 ml # Bowel Movements 0 0 Result Diagram: 10/10/17 0600 10/11/17 0820 Objective Remarks GENERAL: NAD SKIN: Warm and dry. HEAD: Normocephalic. EYES: No scleral icterus. No injection or drainage. NECK: Supple, trachea midline. No JVD or lymphadenopathy. CARDIOVASCULAR: Regular rate and rhythm without murmurs, gallops, or rubs. RESPIRATORY: Breath sounds equal bilaterally. No accessory muscle use. GASTROINTESTINAL: Abdomen soft, non-tender, nondistended. MUSCULOSKELETAL: No cyanosis, or edema. BACK: Nontender without obvious deformity. No CVA tenderness. Procedures s/p I&D lumbar epidural abscess A/P Problem List: (1) Abscess in epidural space of lumbar spine ICD Code: G06.1 - Intraspinal abscess and granuloma (2) Gram-positive bacteremia ICD Code: R78.81 - Bacteremia Assessment and Plan 61-year-old female with Abscess in the epidural space of lumbar spine s/p irrigation and debridement and redo laminectomy L4-5 by orthopedic surgery Wound positive for MRSA Currently on vancomycin 6 weeks per ID Pain management accordingly OOB Headache-Improving ?dural leak May need patch test May consider Neuro consult if FOLEY persists Gram-positive bacteremia Currently on vancomycin Repeat blood culture negative to date Normochromic normocytic anemia Transfused 1 unit packed red blood cell afebrile he 20 03/01/18 Monitor H&H continue ferrous sulfate for iron deficiency anemia Dyslipidemia Continue statin Hypertension Continue Lisinopril 5mg daily -DVT prophylaxis:on Coumadin- per ortho. Jonh Jeff MD Oct 12, 2017 10:15
[2017-10-12 12:00] VITALS: BP 139/94; PULSE 76; RESP 18; TEMP 101.3; O2SAT 91
[2017-10-12] MEDS: ACETAMINOPHEN 325 MG TAB PO PRN (12:12)
[2017-10-12] MEDS: VANCOMYCIN INJ 2,500 MG in SODIUM CHLORID 0.9% 500 ML INJ 500 ML IV SCH (12:13)
[2017-10-12 13:10] LABS: AUTOMATED NEUTROPHIL # 7.9 TH/MM3 (1.8-7.7); BASOPHIL # 0.1 TH/MM3 (0-0.2); BASOPHIL % 0.8 % (0.0-2.0); EOSINOPHIL # 0.2 TH/MM3 (0-0.4); EOSINOPHIL % 1.9 % (0.0-4.0); HEMATOCRIT 28.5 % (35.0-46.0); HEMOGLOBIN 9.5 GM/DL (11.6-15.3); LYMPH % 10.7 % (9.0-44.0); MEAN CELL VOLUME 87.1 FL (80.0-100.0); MEAN CORPUSCULAR HEMOGLOBIN 28.9 PG (27.0-34.0); MEAN CORPUSCULAR HGB CONC 33.2 % (32.0-36.0); MEAN PLATELET VOLUME 7.5 FL (7.0-11.0); MONO % 5.7 % (0.0-8.0); MONOCYTE # 0.6 TH/MM3 (0-0.9); NEUT % 80.9 % (16.0-70.0); PLATELET COUNT 519 TH/MM3 (150-450); RED BLOOD COUNT 3.27 MIL/MM3 (4.00-5.30); RED CELL DISTRIBUTION WIDTH 17.2 % (11.6-17.2); WHITE BLOOD COUNT 9.8 TH/MM3 (4.0-11.0)
[2017-10-12 13:23] LABS: INTERNATIONAL NORMALIZED RATIO 1.8 RATIO; PROTHROMBIN TIME - PATIENT 17.9 SEC (9.8-11.6)
--- NOTE | 2017-10-12 13:25 | HHI.IDPN ---
Note Infectious Disease Note Patient is currently sitting up in chair. RN reports that the gauze dressing on her back was soaked with drainage. Patient is complaining of pain in her back as well as her knees and also her head. No neck stiffness. The temperature is lower. Now down to normal. On O2 via NC 2L. Blood culture from 10/08 has staph epidermidis and coag negative staph in one set. Culture from 10/09 has no growth. 61-year-old black female who recently underwent lumbar spine surgery. The patient was treated for lumbar spine stenosis. She underwent L4-L5 bilateral decompressive hemilaminectomy along with decompression of nerve root and left side L4-L5 repair of dural leak. The patient was discharged from the hospital on September 26. She was taken to surgery and underwent incision and drainage of an lumbar abscess. PAST MEDICAL HISTORY 1. Dyslipidemia, 2. Status post laminectomy for spinal stenosis 3. Appendectomy, 4. Gastric bypass 5. Knee replacement 6. Gastroesophageal reflux disease, 7. Hysterectomy. ALLERGIES NO KNOWN DRUG ALLERGIES. ANTIBIOTIC Vancomycin. Current Medications Medications (Trade) Dose Ordered Sig/Kylah Route PRN Reason Start Time Stop Time Status Last Admin Dose Admin Dextrose/Lactated Ringer's 1,000 ml @ 150 mls/hr Q6H40M IV 10/05/17 12:00 10/12/17 12:17 Sodium Chloride (NS Flush) 5 ml UNSCH PRN IV FLUSH SEE PROTOCOL TABLE 10/05/17 14:00 10/11/17 07:48 Heparin Sodium (Porcine) (Heparin Central Flush) 250 units UNSCH PRN IV FLUSH SEE PROTOCOL TABLE 10/05/17 14:00 10/12/17 05:32 Heparin Sodium (Porcine) (Heparin Central Flush) 500 units UNSCH IV FLUSH 10/05/17 14:00 Morphine Sulfate (Morphine Inj) 5 mg Q3H PRN IV PUSH BREAKTHROUGH PAIN 10/05/17 17:00 10/12/17 07:56 Acetaminophen/ Hydrocodone Bitart ([place] 7.5-325 Mg) 1 tab Q4H PRN PO PAIN SCALE 1 TO 5 10/05/17 17:00 Multivitamins/ Minerals Therapeutic (Theragran M Tab) 1 tab BID PO 10/06/17 09:00 12/05/17 08:59 10/12/17 08:56 Ondansetron HCl (Zofran Inj) 4 mg Q6H PRN IV PUSH NAUSEA OR VOMITING 10/05/17 17:00 Al Hydrox/Mg Hydrox/Simethicone (Mag-Al Plus Susp Liq) 30 ml Q6H PRN PO INDIGESTION 10/05/17 17:00 Zolpidem Tartrate (Ambien) 5 mg HS PRN PO SLEEP 10/05/17 21:00 Bisacodyl (Dulcolax Supp) 10 mg DAILY PRN RECTAL CONSTIPATION 10/05/17 17:15 Sodium Biphosphate/ Sodium Phosphate (Fleets Enema (Adult)) 133 ml DAILY PRN [place] CONSTIPATION 10/05/17 17:15 Naloxone HCl (Narcan Inj) 0.4 mg UNSCH PRN IV PUSH RESPIRATORY RATE LESS THAN 10 10/05/17 17:00 Pravastatin Sodium (Pravachol) 40 mg DAILY PO 10/06/17 09:00 10/12/17 08:56 Pantoprazole Sodium (Protonix) 20 mg DAILY PO 10/06/17 09:00 10/12/17 08:56 Acetaminophen/ Hydrocodone Bitart ([place] 7.5-325 Mg) 2 tab Q4HR PRN PO PAIN SCALE 6 TO 10 10/06/17 09:00 10/12/17 05:29 Docusate Sodium (Colace) 100 mg BID PO 10/06/17 09:30 10/12/17 08:56 Pharmacy Profile Note 0 ml @ 0 mls/hr UNSCH OTHER 10/06/17 13:30 Gabapentin (Neurontin) 300 mg TID PO 10/07/17 09:00 10/12/17 12:12 Acetaminophen (Tylenol) 650 mg Q4H PRN PO fever > 101 10/08/17 02:45 10/12/17 12:12 Warfarin Sodium (Coumadin) GIVE 5MG IF INR < 1.2 G... DAILY@1000 PO 10/09/17 10:00 10/12/17 08:56 Vancomycin HCl 2500 mg/Sodium Chloride 525 ml @ 262.5 mls/ hr Q18H IV 10/09/17 12:00 10/12/17 12:13 Acetaminophen (Tylenol) 650 mg Q4H PRN PO SEE LABEL COMMENTS 10/09/17 13:15 Diphenhydramine HCl (Benadryl) 25 mg Q4H PRN PO SEE LABEL COMMENTS 10/09/17 13:15 Lisinopril (Prinivil) 5 mg DAILY PO 10/10/17 09:00 10/12/17 08:56 Ferrous Sulfate (Ferrous Sulfate) 325 mg BID PO 10/10/17 21:00 10/12/17 08:56 OBJECTIVE: Vital Signs Date Time Temp Pulse Resp B/P (MAP) Pulse Ox O2 Delivery O2 Flow Rate FiO2 10/12/17 08:25 96 2.00 10/12/17 08:00 99.1 74 18 142/60 (87) 93 10/12/17 00:00 98.3 62 18 119/57 (77) 92 10/11/17 20:42 98 Nasal Cannula 2.00 10/11/17 20:00 98.3 67 18 124/58 (80) 98 10/11/17 18:12 18 10/11/17 16:00 98.5 62 17 157/73 (101) 99 Laboratory Tests Test 10/11/17 08:20 10/12/17 12:53 Creatinine 0.77 MG/DL Estimat Glomerular Filtration Rate 93 ML/MIN Microbiology Date/Time Source Procedure Growth Status 10/09/17 13:55 Blood Peripheral Aerobic Blood Culture - Preliminary NO GROWTH IN 3 DAYS Resulted 10/09/17 13:55 Blood Peripheral Anaerobic Blood Culture - Preliminary NO GROWTH IN 3 DAYS Resulted 10/09/17 13:50 Blood Peripheral Aerobic Blood Culture - Preliminary NO GROWTH IN 3 DAYS Resulted 10/09/17 13:50 Blood Peripheral Anaerobic Blood Culture - Preliminary NO GROWTH IN 3 DAYS Resulted IMAGING: Chest X-Ray 10/08/17 0000 Signed Impressions: Service Date/Time: Sunday, October 08, 2017 05:16 - CONCLUSION: 1. Low lung volumes with mild patchy bilateral lower lung zone airspace disease, likely atelectasis. Foreign Blancas MD PHYSICAL EXAMINATION GENERAL: Awake and alert. HEENT: Extraocular movements grossly intact. No icterus. Oropharynx moist mucosa without lesions. NECK: Supple without adenopathy. LUNGS: Decreased breath sounds. HEART: Regular S1, S2 without murmurs, rubs or gallops. ABDOMEN: Bowel sounds present, soft, no tenderness. EXTREMITIES: No clubbing or cyanosis or edema. SKIN: No rash. NEUROLOGIC: No gross focal findings. PSYCHIATRIC: Calm and cooperative. IMPRESSION 1. Lumbar abscess. MRSA. Post drainage. Patient continues to have drainage from the back wound. 2. Fever. Bacteremia - Gram positive cocci. Blood culture had two different coag negative staph. This may have been contaminant. 3. Postoperative wound infection of the lumbar spine. 4. Post laminectomy and repair of epidural tear. 5. FOLEY - ? medicine related. Improved. 6. The white blood cell count is improved. RECOMMENDATIONS 1. Due to the continuing drainage from the back wound, The wound may need to be investigated further. 2. Culture wound drainage from the back. 3. Continue vancomycin for MRSA. 4. Monitor temperature. 5. Monitor renal function. Improving. 6. Monitor clinical status. 7. Follow labs. Antibiotic duration to be determined. Shukri Naqvi MD Oct 12, 2017 13:25
[2017-10-12 16:00] VITALS: BP 104/63; PULSE 77; RESP 19; TEMP 99.8; O2SAT 90
[2017-10-12 20:00] VITALS: BP 142/82; PULSE 77; RESP 17; TEMP 100.5; O2SAT 95
[2017-10-13 00:10] VITALS: BP 109/55; PULSE 61; RESP 17; TEMP 99.4; O2SAT 98
[2017-10-13] MEDS: ACETAMINOPHEN/HYDROcodone 325 MG/7.5 MG TAB PO PRN ×3 (02:51→18:26)
[2017-10-13] MEDS: VANCOMYCIN INJ 2,500 MG in SODIUM CHLORID 0.9% 500 ML INJ 500 ML IV SCH (06:19)
[2017-10-13] MEDS: SODIUM CHLORIDE 0.9% FLUSH 10 ML FLUSH IV FLUSH PRN (06:20)
[2017-10-13 08:00] VITALS: BP 173/74; PULSE 72; RESP 19; TEMP 97.7; O2SAT 96
[2017-10-13] MEDS: LISINOPRIL 5 MG TAB PO SCH (08:43)
[2017-10-13] MEDS: DOCUSATE SODIUM 100 MG CAP PO SCH ×2 (08:43→20:27)
[2017-10-13] MEDS: GABAPENTIN 300 MG CAP PO SCH ×4 (08:44→18:27)
[2017-10-13] MEDS: MORPHINE SULFATE 4 MG/ML INJ IV PUSH PRN ×3 (08:44→20:28)
[2017-10-13] MEDS: PRAVASTATIN SOD 40 MG TAB PO SCH (08:44)
[2017-10-13] MEDS: FERROUS SULFATE 325 MG (65 MG ELEMENTAL IRON) TAB PO SCH ×2 (08:44→20:27)
[2017-10-13] MEDS: MULTIVITAMINS/MINERALS THERAPEUTIC TAB PO SCH ×2 (08:44→20:27)
[2017-10-13] MEDS: PANTOPRAZOLE SOD 20 MG DELAYED RELEASE TAB PO SCH (08:45)
[2017-10-13] MEDS: WARFARIN SOD 5 MG TAB PO SCH (10:00)
--- NOTE | 2017-10-13 11:07 | HHI.PR ---
Subjective Remarks Follow-up lumbar epidural abscess 10/09/17-patient seen and examined, spiking fevers, denies any significant back pain. No nausea and vomiting with by mouth intake 10/10/17-patient seen and examined, continue to complain of severe back pain. 10/11/17-patient seen and examined, still continued to complain of headaches and reports some improvement of back pain 10/12/17-patient seen and examined, reports some improving of FOLEY, and complains of now severe BLE pain 10/13/17-patient seen and examined, complains of restroom to spasm. Spiking fevers Objective Vitals Vital Signs Date Time Temp Pulse Resp B/P (MAP) Pulse Ox O2 Delivery O2 Flow Rate FiO2 10/13/17 08:00 97.7 72 19 173/74 (107) 96 10/13/17 00:10 99.4 61 17 109/55 (73) 98 10/12/17 20:00 100.5 77 17 142/82 (102) 95 10/12/17 16:00 99.8 77 19 104/63 (77) 90 10/12/17 12:00 101.3 76 18 139/94 (109) 91 I/O 10/12/17 10/12/17 10/12/17 10/13/17 10/13/17 10/13/17 07:00 15:00 23:00 07:00 15:00 23:00 Intake Total 100 ml 1425 ml 960 ml 240 ml Output Total 1000 ml 1650 ml Balance -900 ml -225 ml 960 ml 240 ml Intake Oral 960 ml 240 ml IV Total 100 ml 1425 ml Output Urine Total 1000 ml 1650 ml # Voids 2 1 # Bowel Movements 0 Result Diagram: 10/12/17 1253 10/11/17 0820 Objective Remarks GENERAL: NAD SKIN: Warm and dry. HEAD: Normocephalic. EYES: No scleral icterus. No injection or drainage. NECK: Supple, trachea midline. No JVD or lymphadenopathy. CARDIOVASCULAR: Regular rate and rhythm without murmurs, gallops, or rubs. RESPIRATORY: Breath sounds equal bilaterally. No accessory muscle use. GASTROINTESTINAL: Abdomen soft, non-tender, nondistended. MUSCULOSKELETAL: No cyanosis, or edema. BACK: Nontender without obvious deformity. No CVA tenderness. Procedures s/p I&D lumbar epidural abscess A/P Problem List: (1) Abscess in epidural space of lumbar spine ICD Code: G06.1 - Intraspinal abscess and granuloma (2) Gram-positive bacteremia ICD Code: R78.81 - Bacteremia Assessment and Plan 61-year-old female with Abscess in the epidural space of lumbar spine Currently spiking fevers s/p irrigation and debridement and redo laminectomy L4-5 by orthopedic surgery Wound positive for MRSA Currently on vancomycin per ID Pain management accordingly Monitor incision site for possible sign of infection Headache-Improving May consider Neuro consult if FOLEY persists Gram-positive bacteremia Currently on vancomycin Repeat blood culture negative to date Normochromic normocytic anemia Transfused 1 unit packed red blood cell afebrile he 20 03/01/18 Monitor H&H continue ferrous sulfate for iron deficiency anemia Dyslipidemia Continue statin Hypertension Continue Lisinopril 5mg daily -DVT prophylaxis:on Coumadin- per ortho. Jonh Jeff MD Oct 13, 2017 11:07
[2017-10-13] MEDS: DEXTROSE 5%-LACTATED RING INJ 1,000 ML IV SCH ×4 (11:20→20:35)
[2017-10-13] MEDS: ACETAMINOPHEN 325 MG TAB PO PRN (11:31)
[2017-10-13 12:00] VITALS: BP 155/71; PULSE 68; RESP 17; TEMP 100.5; O2SAT 100
[2017-10-13 14:25] LABS: INTERNATIONAL NORMALIZED RATIO 1.6 RATIO; PROTHROMBIN TIME - PATIENT 16.4 SEC (9.8-11.6)
[2017-10-13 14:45] LABS: CREATININE 0.91 MG/DL (0.50-1.00)
[2017-10-13 16:00] VITALS: BP 116/57; PULSE 71; RESP 17; TEMP 99; O2SAT 97
[2017-10-13 20:00] VITALS: BP 100/53; PULSE 64; RESP 19; TEMP 96.3; O2SAT 100
[2017-10-14] VITALS: BP 114/57; PULSE 67; RESP 20; TEMP 97; O2SAT 98
[2017-10-14] MEDS: ACETAMINOPHEN/HYDROcodone 325 MG/7.5 MG TAB PO PRN ×5 (00:27→22:19)
[2017-10-14] MEDS: VANCOMYCIN INJ 2,500 MG in SODIUM CHLORID 0.9% 500 ML INJ 500 ML IV SCH ×2 (00:27→17:44)
[2017-10-14] MEDS: DEXTROSE 5%-LACTATED RING INJ 1,000 ML IV SCH ×3 (04:54→22:19)
[2017-10-14 06:02] LABS: INTERNATIONAL NORMALIZED RATIO 1.6 RATIO; PROTHROMBIN TIME - PATIENT 15.8 SEC (9.8-11.6)
[2017-10-14 08:00] VITALS: BP 108/55; PULSE 66; RESP 20; TEMP 98.9; O2SAT 98
[2017-10-14] MEDS: GABAPENTIN 300 MG CAP PO SCH ×2 (09:14→17:44)
[2017-10-14] MEDS: MULTIVITAMINS/MINERALS THERAPEUTIC TAB PO SCH ×2 (09:15→20:15)
[2017-10-14] MEDS: DOCUSATE SODIUM 100 MG CAP PO SCH ×2 (09:15→20:15)
[2017-10-14] MEDS: PRAVASTATIN SOD 40 MG TAB PO SCH (09:15)
[2017-10-14] MEDS: FERROUS SULFATE 325 MG (65 MG ELEMENTAL IRON) TAB PO SCH ×2 (09:15→20:15)
[2017-10-14] MEDS: PANTOPRAZOLE SOD 20 MG DELAYED RELEASE TAB PO SCH (09:15)
[2017-10-14] MEDS: WARFARIN SOD 5 MG TAB PO SCH (09:16)
[2017-10-14] MEDS: MORPHINE SULFATE 4 MG/ML INJ IV PUSH PRN ×3 (09:16→20:15)
[2017-10-14] MEDS: LISINOPRIL 5 MG TAB PO SCH (09:16)
--- NOTE | 2017-10-14 09:41 | HHI.PR ---
Subjective Remarks Follow-up lumbar epidural abscess 10/09/17-patient seen and examined, spiking fevers, denies any significant back pain. No nausea and vomiting with by mouth intake 10/10/17-patient seen and examined, continue to complain of severe back pain. 10/11/17-patient seen and examined, still continued to complain of headaches and reports some improvement of back pain 10/12/17-patient seen and examined, reports some improving of FOLEY, and complains of now severe BLE pain 10/13/17-patient seen and examined, complains of restroom to spasm. Spiking fevers 10/14/17-patient seen and examined, currently afebrile. States she was out of bed yesterday for 4 hours sitting in a chair Objective Vitals Vital Signs Date Time Temp Pulse Resp B/P (MAP) Pulse Ox O2 Delivery O2 Flow Rate FiO2 10/14/17 08:00 98.9 66 20 108/55 (72) 98 10/14/17 00:00 97.0 67 20 114/57 (76) 98 10/13/17 20:20 Nasal Cannula 3.00 10/13/17 20:00 96.3 64 19 100/53 (69) 100 10/13/17 16:00 99.0 71 17 116/57 (76) 97 10/13/17 12:44 Room Air 2.00 Nasal Cannula 10/13/17 12:00 100.5 68 17 155/71 (99) 100 I/O 10/13/17 10/13/17 10/13/17 10/14/17 10/14/17 10/14/17 07:00 15:00 23:00 07:00 15:00 23:00 Intake Total 240 ml 2075 ml 1825 ml Output Total 200 ml Balance 240 ml 1875 ml 1825 ml Intake Oral 240 ml 550 ml 300 ml IV Total 1525 ml 1525 ml Output Urine Total 200 ml # Voids 1 5 1 # Bowel Movements 0 Result Diagram: 10/12/17 1253 10/13/17 1320 Objective Remarks GENERAL: NAD SKIN: Warm and dry. HEAD: Normocephalic. EYES: No scleral icterus. No injection or drainage. NECK: Supple, trachea midline. No JVD or lymphadenopathy. CARDIOVASCULAR: Regular rate and rhythm without murmurs, gallops, or rubs. RESPIRATORY: Breath sounds equal bilaterally. No accessory muscle use. GASTROINTESTINAL: Abdomen soft, non-tender, nondistended. MUSCULOSKELETAL: No cyanosis, or edema. BACK: Nontender without obvious deformity. No CVA tenderness. Procedures s/p I&D lumbar epidural abscess A/P Problem List: (1) Abscess in epidural space of lumbar spine ICD Code: G06.1 - Intraspinal abscess and granuloma (2) Gram-positive bacteremia ICD Code: R78.81 - Bacteremia Assessment and Plan 61-year-old female with Abscess in the epidural space of lumbar spine Currently spiking fevers-resolved s/p irrigation and debridement and redo laminectomy L4-5 by orthopedic surgery Wound positive for MRSA Currently on vancomycin per ID Pain management accordingly Monitor incision site for possible sign of infection Headache-Improving May consider Neuro consult if FOLEY persists Gram-positive bacteremia Currently on vancomycin Repeat blood culture negative to date Normochromic normocytic anemia Transfused 1 unit packed red blood cell afebrile he 20 07/ Monitor H&H continue ferrous sulfate for iron deficiency anemia Dyslipidemia Continue statin Hypertension Continue Lisinopril 5mg daily -DVT prophylaxis:on Coumadin- per Jonh Garcia MD Oct 14, 2017 09:41
[2017-10-14 12:00] VITALS: BP 142/70; PULSE 64; RESP 22; TEMP 98.7; O2SAT 100
--- NOTE | 2017-10-14 13:56 | PD.ORT.PN ---
Subjective Subjective Remarks no issues Objective Vitals Vital Signs Date Time Temp Pulse Resp B/P (MAP) Pulse Ox O2 Delivery O2 Flow Rate FiO2 10/14/17 08:00 98.9 66 20 108/55 (72) 98 10/14/17 00:00 97.0 67 20 114/57 (76) 98 10/13/17 20:20 Nasal Cannula 3.00 10/13/17 20:00 96.3 64 19 100/53 (69) 100 10/13/17 16:00 99.0 71 17 116/57 (76) 97 I/O 10/13/17 10/13/17 10/13/17 10/14/17 10/14/17 10/14/17 07:00 15:00 23:00 07:00 15:00 23:00 Intake Total 240 ml 2075 ml 1825 ml Output Total 200 ml Balance 240 ml 1875 ml 1825 ml Intake Oral 240 ml 550 ml 300 ml IV Total 1525 ml 1525 ml Output Urine Total 200 ml # Voids 1 5 1 # Bowel Movements 0 Result Diagram: 10/12/17 1253 10/13/17 1320 Other Results Laboratory Tests Test 10/14/17 05:34 Prothromb Time International Ratio 1.6 RATIO Prothrombin Time 15.8 SEC (9.8-11.6) Objective Remarks Lumbar spine wound dressings are dry with no evidence of drainage Neurologically no focal deficit. Assessment & Plan Assessment and Plan pod #9 s/p lumbar spine I&D with MRSA infection: intra-op findings did not show evidence of epidural abscess feeling better. no new issues as far as back continue IV vancomycin per I.D. d/c bedrest, PT ordered for out of bed with assistive ambulation HOLD coumadin for INR above 1.5 per sliding scale anticipate d/c to SNF when medically stable Julio Billings Jr., MD Oct 14, 2017 13:56
[2017-10-14] MEDS: MAGNESIUM HYDROXIDE SUSP 30 ML CUP PO PRN (15:14)
[2017-10-14 16:00] VITALS: BP 114/53; PULSE 64; RESP 20; TEMP 99.2; O2SAT 98
[2017-10-14 20:00] VITALS: BP 121/60; PULSE 69; RESP 19; TEMP 99.8; O2SAT 97
[2017-10-15] VITALS: BP 120/56; PULSE 65; RESP 14; TEMP 97.8; O2SAT 96
[2017-10-15] MEDS: ACETAMINOPHEN/HYDROcodone 325 MG/7.5 MG TAB PO PRN ×4 (04:26→17:31)
[2017-10-15] MEDS: MAGNESIUM HYDROXIDE SUSP 30 ML CUP PO PRN (04:41)
[2017-10-15] MEDS: DEXTROSE 5%-LACTATED RING INJ 1,000 ML IV SCH ×3 (04:41→17:40)
[2017-10-15 06:58] LABS: INTERNATIONAL NORMALIZED RATIO 1.3 RATIO; PROTHROMBIN TIME - PATIENT 13.1 SEC (9.8-11.6)
[2017-10-15 07:19] LABS: CREATININE 2.95 MG/DL (0.50-1.00)
[2017-10-15 08:00] VITALS: BP 94/50; PULSE 58; RESP 18; TEMP 97.3; O2SAT 95
[2017-10-15] MEDS: PRAVASTATIN SOD 40 MG TAB PO SCH (08:34)
[2017-10-15] MEDS: LISINOPRIL 5 MG TAB PO SCH (08:34)
[2017-10-15] MEDS: DOCUSATE SODIUM 100 MG CAP PO SCH ×2 (08:34→20:29)
[2017-10-15] MEDS: MULTIVITAMINS/MINERALS THERAPEUTIC TAB PO SCH ×2 (08:34→20:29)
[2017-10-15] MEDS: WARFARIN SOD 5 MG TAB PO SCH (08:34)
[2017-10-15] MEDS: FERROUS SULFATE 325 MG (65 MG ELEMENTAL IRON) TAB PO SCH ×2 (08:34→20:29)
[2017-10-15] MEDS: GABAPENTIN 300 MG CAP PO SCH ×3 (08:34→17:31)
[2017-10-15] MEDS: PANTOPRAZOLE SOD 20 MG DELAYED RELEASE TAB PO SCH (08:34)
--- NOTE | 2017-10-15 10:38 | HHI.PR ---
Subjective Remarks Follow-up lumbar epidural abscess 10/09/17-patient seen and examined, spiking fevers, denies any significant back pain. No nausea and vomiting with by mouth intake 10/10/17-patient seen and examined, continue to complain of severe back pain. 10/11/17-patient seen and examined, still continued to complain of headaches and reports some improvement of back pain 10/12/17-patient seen and examined, reports some improving of FOLEY, and complains of now severe BLE pain 10/13/17-patient seen and examined, complains of restroom to spasm. Spiking fevers 10/14/17-patient seen and examined, currently afebrile. States she was out of bed yesterday for 4 hours sitting in a chair 10/15/17-patient seen and examined, no complaint this AM. Afebrile and denies any FOLEY Objective Vitals Vital Signs Date Time Temp Pulse Resp B/P (MAP) Pulse Ox O2 Delivery O2 Flow Rate FiO2 10/15/17 08:35 Nasal Cannula 2.00 10/15/17 00:00 97.8 65 14 120/56 (77) 96 10/14/17 20:13 Nasal Cannula 2.00 10/14/17 20:00 99.8 69 19 121/60 (80) 97 10/14/17 16:00 99.2 64 20 114/53 (73) 98 10/14/17 12:00 98.7 64 22 142/70 (94) 100 I/O 10/14/17 10/14/17 10/14/17 10/15/17 10/15/17 10/15/17 07:00 15:00 23:00 07:00 15:00 23:00 Intake Total 1825 ml 1000 ml 2218 ml 1360 ml Output Total 600 ml Balance 1825 ml 1000 ml 1618 ml 1360 ml Intake Oral 300 ml 1600 ml 360 ml IV Total 1525 ml 1000 ml 618 ml 1000 ml Output Urine Total 600 ml # Voids 1 2 # Bowel Movements 0 Result Diagram: 10/12/17 1253 10/15/17 0637 Objective Remarks GENERAL: NAD SKIN: Warm and dry. HEAD: Normocephalic. EYES: No scleral icterus. No injection or drainage. NECK: Supple, trachea midline. No JVD or lymphadenopathy. CARDIOVASCULAR: Regular rate and rhythm without murmurs, gallops, or rubs. RESPIRATORY: Breath sounds equal bilaterally. No accessory muscle use. GASTROINTESTINAL: Abdomen soft, non-tender, nondistended. MUSCULOSKELETAL: No cyanosis, or edema. BACK: Nontender without obvious deformity. No CVA tenderness. Procedures s/p I&D lumbar epidural abscess A/P Problem List: (1) Abscess in epidural space of lumbar spine ICD Code: G06.1 - Intraspinal abscess and granuloma (2) Gram-positive bacteremia ICD Code: R78.81 - Bacteremia Assessment and Plan 61-year-old female with Abscess in the epidural space of lumbar spine Currently spiking fevers-resolved s/p irrigation and debridement and redo laminectomy L4-5 by orthopedic surgery Wound positive for MRSA Currently on vancomycin per ID Pain management accordingly Headache-Improving May consider Neuro consult if FOLEY persists Gram-positive bacteremia Currently on vancomycin Repeat blood culture negative to date Normochromic normocytic anemia Transfused 1 unit packed red blood cell afebrile he 20 07//18 Monitor H&H continue ferrous sulfate for iron deficiency anemia Dyslipidemia Continue statin Hypertension Continue Lisinopril 5mg daily -DVT prophylaxis:on Coumadin- per ortho. Jonh Jeff MD Oct 15, 2017 10:38
[2017-10-15] MEDS: MORPHINE SULFATE 4 MG/ML INJ IV PUSH PRN ×2 (11:08→20:23)
[2017-10-15] MEDS ORDERED: PHARMACY ORDERED LAB ONE (11:45)
[2017-10-15 12:00] VITALS: BP 106/56; PULSE 60; RESP 18; TEMP 98; O2SAT 97
--- NOTE | 2017-10-15 14:50 | HHI.IDPN ---
Note Infectious Disease Note Patient notes that she has pain in her back. She continues to have drainage from the back incision. Kidney function has deteriorated. The current creatinine is 2.95. Ntzslk-z-[id number] is infusing but there is difficulty withdrawing blood. The headache has improved. Afebrile. Wound culture from 10/12 has MRSA. Patient gets physical therapy. Not yet ambulating. 61-year-old black female who recently underwent lumbar spine surgery. The patient was treated for lumbar spine stenosis. She underwent L4-L5 bilateral decompressive hemilaminectomy along with decompression of nerve root and left side L4-L5 repair of dural leak. The patient was discharged from the hospital on September 26. She was taken to surgery and underwent incision and drainage of an lumbar abscess. PAST MEDICAL HISTORY 1. Dyslipidemia, 2. Status post laminectomy for spinal stenosis 3. Appendectomy, 4. Gastric bypass 5. Knee replacement 6. Gastroesophageal reflux disease, 7. Hysterectomy. ALLERGIES NO KNOWN DRUG ALLERGIES. ANTIBIOTIC Vancomycin. Current Medications Medications (Trade) Dose Ordered Sig/Kylah Route PRN Reason Start Time Stop Time Status Last Admin Dose Admin Dextrose/Lactated Ringer's 1,000 ml @ 150 mls/hr Q6H40M IV 10/05/17 12:00 10/15/17 12:16 Sodium Chloride (NS Flush) 5 ml UNSCH PRN IV FLUSH SEE PROTOCOL TABLE 10/05/17 14:00 10/13/17 06:20 Heparin Sodium (Porcine) (Heparin Central Flush) 250 units UNSCH PRN IV FLUSH SEE PROTOCOL TABLE 10/05/17 14:00 10/13/17 20:31 Heparin Sodium (Porcine) (Heparin Central Flush) 500 units UNSCH IV FLUSH 10/05/17 14:00 Morphine Sulfate (Morphine Inj) 5 mg Q3H PRN IV PUSH BREAKTHROUGH PAIN 10/05/17 17:00 10/15/17 11:08 Acetaminophen/ Hydrocodone Bitart (Howard 7.5-325 Mg) 1 tab Q4H PRN PO PAIN SCALE 1 TO 5 10/05/17 17:00 Multivitamins/ Minerals Therapeutic (Theragran M Tab) 1 tab BID PO 10/06/17 09:00 12/05/17 08:59 10/15/17 08:34 Ondansetron HCl (Zofran Inj) 4 mg Q6H PRN IV PUSH NAUSEA OR VOMITING 10/05/17 17:00 Al Hydrox/Mg Hydrox/Simethicone (Mag-Al Plus Susp Liq) 30 ml Q6H PRN PO INDIGESTION 10/05/17 17:00 Zolpidem Tartrate (Ambien) 5 mg HS PRN PO SLEEP 10/05/17 21:00 Bisacodyl (Dulcolax Supp) 10 mg DAILY PRN RECTAL CONSTIPATION 10/05/17 17:15 Naloxone HCl (Narcan Inj) 0.4 mg UNSCH PRN IV PUSH RESPIRATORY RATE LESS THAN 10 10/05/17 17:00 Pravastatin Sodium (Pravachol) 40 mg DAILY PO 10/06/17 09:00 Future Hold 10/15/17 08:34 Pantoprazole Sodium (Protonix) 20 mg DAILY PO 10/06/17 09:00 10/15/17 08:34 Acetaminophen/ Hydrocodone Bitart (Howard 7.5-325 Mg) 2 tab Q4HR PRN PO PAIN SCALE 6 TO 10 10/06/17 09:00 10/15/17 13:01 Docusate Sodium (Colace) 100 mg BID PO 10/06/17 09:30 10/15/17 08:34 Gabapentin (Neurontin) 300 mg TID PO 10/07/17 09:00 10/15/17 13:00 Acetaminophen (Tylenol) 650 mg Q4H PRN PO fever > 101 10/08/17 02:45 10/13/17 11:31 Warfarin Sodium (Coumadin) GIVE 5MG IF INR < 1.2 G... DAILY@1000 PO 10/09/17 10:00 10/15/17 08:34 Acetaminophen (Tylenol) 650 mg Q4H PRN PO SEE LABEL COMMENTS 10/09/17 13:15 Diphenhydramine HCl (Benadryl) 25 mg Q4H PRN PO SEE LABEL COMMENTS 10/09/17 13:15 Lisinopril (Prinivil) 5 mg DAILY PO 10/10/17 09:00 10/15/17 08:34 Ferrous Sulfate (Ferrous Sulfate) 325 mg BID PO 10/10/17 21:00 10/15/17 08:34 Magnesium Hydroxide (Milk Of Magnesia Liq) 30 ml Q6H PRN PO CONSTIPATION 10/14/17 09:45 10/15/17 04:41 Daptomycin 600 mg/ Sodium Chloride 100 ml @ 200 mls/hr Q24H IV 10/16/17 09:00 Sodium Biphosphate/ Sodium Phosphate (Fleets Enema (Adult)) 133 ml ONCE ONCE DC 10/15/17 15:30 10/15/17 15:31 UNV OBJECTIVE: Vital Signs Date Time Temp Pulse Resp B/P (MAP) Pulse Ox O2 Delivery O2 Flow Rate FiO2 10/15/17 12:00 98.0 60 18 106/56 (73) 97 10/15/17 08:35 Nasal Cannula 2.00 10/15/17 08:00 97.3 58 18 94/50 (65) 95 10/15/17 00:00 97.8 65 14 120/56 (77) 96 10/14/17 20:13 Nasal Cannula 2.00 10/14/17 20:00 99.8 69 19 121/60 (80) 97 10/14/17 16:00 99.2 64 20 114/53 (73) 98 Laboratory Tests Test 10/15/17 06:37 Creatinine 2.95 MG/DL Estimat Glomerular Filtration Rate 20 ML/MIN IMAGING: Chest X-Ray 10/08/17 0000 Signed Impressions: Service Date/Time: Sunday, October 08, 2017 05:16 - CONCLUSION: 1. Low lung volumes with mild patchy bilateral lower lung zone airspace disease, likely atelectasis. Foreign Blancas MD PHYSICAL EXAMINATION GENERAL: Awake and alert. No acute distress. HEENT: Extraocular movements grossly intact. No icterus. Oropharynx moist mucosa without lesions. NECK: Supple without adenopathy. LUNGS: Decreased breath sounds. HEART: Regular S1, S2 without murmurs, rubs or gallops. ABDOMEN: Bowel sounds present, soft, no tenderness. BACK: Clear drainage at the surgical incision. EXTREMITIES: No clubbing or cyanosis or edema. SKIN: No rash. NEUROLOGIC: No gross focal findings. PSYCHIATRIC: Calm and cooperative. IMPRESSION 1. Lumbar abscess. MRSA. Post drainage. Patient continues to have drainage from the back wound. I am concerned about an undrained fluid collection. I would like to do an MRI with contrast to further investigate. However because of the acute renal failure I would want to observe the renal function And hold off for now. 2. Fever. Bacteremia - Gram positive cocci. Blood culture had two different coag negative staph. This may have been contaminant. Fever has improved. 3. Postoperative wound infection of the lumbar spine. 4. Post laminectomy and repair of epidural tear. 5. New problem - Probably related to vancomycin. 6. Vlozxb-a-Gazz not functioning adequately. However infusing. Radiology consult to evaluate the Koiqqb-m-Ttzj patency. RECOMMENDATIONS 1. Stop vancomycin - may be the cause of the decreased renal function 2. Nephrology consultation for decreased urine function. 3. Begin Daptomycin. Hold Pravachol while on vancomycin. 4. Consult radiology to investigate the Ttoxos-t-Lwua further. 5. Monitor clinical status. Once improvement in renal function occurs. Will proceed with radiological evaluation. PS: Discussed with Dr Dylan Martin. He will order radiographic study to evaluate possible fluid reaccumulation. Shukri Naqvi MD Oct 15, 2017 14:50
--- NOTE | 2017-10-15 15:50 | PD.ORT.PN ---
Subjective Subjective Remarks POD# 10 Lumbar spine I&D MRSA patient currently in radiology for infusaport spoke to nurse, patient complaining of constipation, headache improved Objective Vitals Vital Signs Date Time Temp Pulse Resp B/P (MAP) Pulse Ox O2 Delivery O2 Flow Rate FiO2 10/15/17 12:00 98.0 60 18 106/56 (73) 97 10/15/17 08:35 Nasal Cannula 2.00 10/15/17 08:00 97.3 58 18 94/50 (65) 95 10/15/17 00:00 97.8 65 14 120/56 (77) 96 10/14/17 20:13 Nasal Cannula 2.00 10/14/17 20:00 99.8 69 19 121/60 (80) 97 10/14/17 16:00 99.2 64 20 114/53 (73) 98 I/O 10/14/17 10/14/17 10/14/17 10/15/17 10/15/17 10/15/17 07:00 15:00 23:00 07:00 15:00 23:00 Intake Total 1825 ml 1000 ml 2218 ml 1360 ml Output Total 600 ml Balance 1825 ml 1000 ml 1618 ml 1360 ml Intake Oral 300 ml 1600 ml 360 ml IV Total 1525 ml 1000 ml 618 ml 1000 ml Output Urine Total 600 ml # Voids 1 2 # Bowel Movements 0 Result Diagram: 10/12/17 1253 10/15/17 0637 Other Results Laboratory Tests Test 10/15/17 06:37 Prothromb Time International Ratio 1.3 RATIO Prothrombin Time 13.1 SEC (9.8-11.6) Objective Remarks Patient currently down in radiology Per Nurse and I.D., drainage from lumbar incision Neurologically no focal deficit. Assessment & Plan Assessment and Plan pod #10 s/p lumbar spine I&D with MRSA infection: intra-op findings did not show evidence of epidural abscess headache improved continue antibiotics per I.D. ; vanco was stopped due to acute renal failure and daptomycin was started PT ordered for out of bed with assistive ambulation Coumadin for DVT prop per sliding scale Discussed with Dr. Naqvi regarding wound drainage. Pt clinically does not have persistent CSF leak. Ordered MRI scan lumbar spine WITHOUT contrast to ascess whether patient has developed recurrent fluid or abscess formation pt is clinically much improved will see patient tomorrow anticipate d/c to SNF when medically stable Dylan Martin MD Oct 15, 2017 15:50
[2017-10-15 16:00] VITALS: BP 144/65; PULSE 68; RESP 20; TEMP 97.4; O2SAT 95
[2017-10-15] MEDS ORDERED: SOD PHOSPHATE/SOD BIPHOSPHATE (ADULT) ENEMA 133ML PR ONE (16:00)
[2017-10-15] MEDS ORDERED: IOHEXOL 350 MG/ML 50 ML BTL (for RAD DIAG) OTHER ONE (16:03)
--- NOTE | 2017-10-15 16:31 | PD.RAD ---
Post Procedure Progress Note Pre Procedure Diagnosis: (1) Central line complication Post Procedure Diagnosis: (1) Central line complication Procedure Date: Oct 15, 2017 Supervising Radiologist: Dipesh Auguste JR Proceduralist/Assist: Ryder Barrios, RT(R), Suzan Bond RT(R)(CV) Anesthesia: Other Plan of Activity Patient to Unit: Nursing Unit Patient Condition: Good Additional Comments: Port evaluation shows port in correct position. No leak. Fibrin sheath on tip of catheter prevents blood return. Consideration could be made to fibrin sheath stripping to restore this capability to this port. See PACS Report for procedural detail/treatment Jr. Molina,Dipesh Rivera MD Oct 15, 2017 16:31
--- NOTE | 2017-10-15 16:34 | RADRPT ---
EXAM DATE/TIME: 10/15/2017 16:44 [facility] COMPARISON: No previous studies available for comparison. INDICATIONS : Patient presents with non functioning port in need of patency injection for further evaluation. MEDICAL HISTORY : Arthritis Anxiety CVA GERD HTN Stroke hx Pancreatitis SURGICAL HISTORY : Gastric bypass w/ reversal Appy Karo Hysterectomy Oral sx Tonsillectomy Lumpectomy right breast Right port placement. ENCOUNTER: Subsequent ACUITY: 2 weeks PAIN SCORE: 0/10 LOCATION: N/A FLUORO TIME: 0.5 minutes IMAGE SERIES: 2 CONTRAST: 10 cc Omnipaque (iohexol) 350 PROCEDURE : 1. Access of Imvpyb-k-qcyd. 2. Port patency injection. The risks, benefits and alternatives to the procedure were explained and verbal and written consent w as obtained. The patient was placed supine. The port was already accessed. Contrast was injected into the port under fluoroscopic control. This shows the tip of the catheter in the correct position at the mid right atrial level. There is a fibrin sheath involving the tip of th e catheter. This will prevent blood draws. No leakage to suggest a fracture in the catheter or disrup tion at the hub. CONCLUSION: Port in good position. Fibrin sheath will prevent blood aspiration. Consideration could be made to fi brin sheath stripping to restore this function of the port. Dipesh Auguste Jr., MD on October 15, 2017 at 16:27 Board Certified Radiologist. This report was verified electronically.
--- NOTE | 2017-10-15 19:15 | PD.CONS ---
HPI Consult Requested By Reason for Consult Acute renal insufficiency. Primary Care Physician Cole Villa MD History of Present Illness This patient is a 62-year-old female who apparently had no previous history of chronic kidney disease. She does have a history of hypertension and during a recent previous admission underwent lumbar surgery for spinal stenosis. She had a decompressive hemilaminectomy laminectomy L4-L5 and discharged on September 26, 2017. Subsequently readmitted on October 01, 2017 with drainage from the wounds and back pain. Subsequently diagnosed as having an epidural abscess and underwent surgery for same. Has been receiving vancomycin which was subsequently discontinued October 15, 2017 as it was noted that his serum creatinine level had risen dramatically. On questioning the patient she also is indicating some difficulty voiding as well as constipation. Review of Systems Constitutional: COMPLAINS OF: Fatigue, DENIES: Diaphoretic episodes, Fever, Weight gain, Weight loss, Chills, Dizziness, Change in appetite, Night Sweats Cardiovascular: DENIES: Chest pain, Palpitations, Syncope, Dyspnea on Exertion , PND, Lower Extremity Edema, Orthopnea, Claudication Gastrointestinal: DENIES: Abdominal pain, Black stools, Bloody stools, Constipation, Diarrhea, Nausea, Vomiting, Difficulty Swallowing, Anorexia Genitourinary: COMPLAINS OF: Urinary frequency, Urgency Musculoskeletal: COMPLAINS OF: Back pain, DENIES: Joint pain, Muscle aches, Stiffness, Joint Swelling, Neck pain Past Family Social History Allergies: Coded Allergies: *MDRO Multi-Drug Resistant Organism (Verified Adverse Reaction, Unknown, ) 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 Past Surgical History Gastric bypass. Hysterectomy. Recent decompressive hemilaminectomy L4-L5. Reported Medications Reported Meds & Active Scripts Active [place] (Hydrocodone-Acetaminophen) 7.5-325 mg Tab 1-2 Tab PO Q6H PRN Walker with Front Wheels (Device) 1 Mis Mis Ea .ROUTE DIRECTED Reported Pravastatin 40 Mg Tab 40 Mg PO DAILY Omeprazole 20 Mg Tab 20 Mg PO DAILY Active Ordered Medications Inpatient Medications Acetaminophen (Tylenol) 650 mg Q4H PRN PO SEE LABEL COMMENTS; Start 10/09/17 at 13:15 Acetaminophen/ Hydrocodone Bitart ([place] 7.5-325 Mg) 2 tab Q4HR PRN PO PAIN SCALE 6 TO 10 Last administered on 3/5/18at 17:31; Start 10/06/17 at 09:00 Al Hydrox/Mg Hydrox/Simethicone (Mag-Al Plus Susp Liq) 30 ml Q6H PRN PO INDIGESTION; Start 10/05/17 at 17:00 Bisacodyl (Dulcolax Supp) 10 mg DAILY PRN RECTAL CONSTIPATION; Start 10/05/17 at 17:15 Cefazolin Sodium 1000 mg/Sodium Chloride 100 ml @ 200 mls/hr Q8H IV Last administered on 10/06/17at 17:17; Start 10/06/17 at 00:00; Stop 10/06/17 at 16:29 ; Status DC Chlorhexidine Gluconate (Chlorhexidine 2% Cloth) 3 pack DRYER FEEDER PRN TOPICAL SEE LABEL COMMENTS; Start 10/05/17 at 12:00; Stop 10/08/17 at 11:59; Status DC Chlorhexidine Gluconate (Hibiclens 4% Top Soln) 1 applic ONCE TOPICAL ; Start at 12:00; Stop 10/08/17 at 11:59; Status DC Daptomycin 600 mg/ Sodium Chloride 100 ml @ 200 mls/hr Q24H IV ; Start 10/16/17 at 09:00 Dextrose/Lactated Ringer's 1,000 ml @ 150 mls/hr Q6H40M IV Last administered on 10/15/17at 17:40; Start 10/05/17 at 12:00 Diphenhydramine HCl (Benadryl) 25 mg Q4H PRN PO SEE LABEL COMMENTS; Start 10/09 at 13:15 Docusate Sodium (Colace) 100 mg BID PO Last administered on 10/15/17at 08:34; Start 10/06/17 at 09:30 Ferrous Sulfate (Ferrous Sulfate) 325 mg BID PO Last administered on 10/15/17 08:34; Start 10/10/17 at 21:00 Gabapentin (Neurontin) 300 mg TID PO Last administered on 10/15/17at 17:31; Start 10/07/17 at 09:00 Heparin Sodium (Porcine) (Heparin Central Flush) 500 units UNSCH IV FLUSH ; Start 10/05/17 at 14:00 Lactated Ringer's 1,000 ml @ 30 mls/hr Q24H PRN IV SEE LABEL COMMENTS; Start at 12:00; Stop 10/08/17 at 11:59; Status DC Lisinopril (Prinivil) 5 mg DAILY PO Last administered on 10/15/17 08:34; Start 10/10/17 at 09:00 Magnesium Hydroxide (Milk Of Magnesia Liq) 30 ml Q6H PRN PO CONSTIPATION Last administered on 10/15/17 04:41; Start 10/14/17 at 09:45 Metoprolol Tartrate (Lopressor) 25 mg DRYER FEEDER PRN PO SEE LABEL COMMENTS; Start 10/05/17 at 12:00; Stop 10/08/17 at 11:59; Status DC Miscellaneous Information SPECIFIC LAB TO BE DRAWN:VA... ONCE ONCE .XX ; Start 10/15/17 at 11:45; Stop 10/15/17 at 11:46; Status DC Miscellaneous Information (Post-op Orders (for Pharmacy)) STAT ONCE XX ; Start 10/05/17 at 18:00; Stop 10/05/17 at 18:01; Status DC Morphine Sulfate (Morphine Inj) 5 mg Q3H PRN IV PUSH BREAKTHROUGH PAIN Last administered on 10/15/17 11:08; Start 10/05/17 at 17:00 Multivitamins/ Minerals Therapeutic (Theragran M Tab) 1 tab BID PO Last administered on 10/15/17 08:34; Start 10/06/17 at 09:00; Stop 12/05/17 at 08:59 Naloxone HCl (Narcan Inj) 0.4 mg UNSCH PRN IV PUSH RESPIRATORY RATE LESS THAN 10; Start 10/05/17 at 17:00 Ondansetron HCl (Zofran Inj) 4 mg Q6H PRN IV PUSH NAUSEA OR VOMITING; Start at 17:00 Pantoprazole Sodium (Protonix) 20 mg DAILY PO Last administered on 10/15/17 08: 34; Start 10/06/17 at 09:00 Patient Medication Teaching (Coumadin Booklet) 1 ONCE ONCE .XX Last administered on 10/08/17at 17:39; Start 10/08/17 at 09:00; Stop 10/08/17 at 09:02 ; Status DC Pharmacy Profile Note 0 ml @ 0 mls/hr UNSCH OTHER ; Start 10/06/17 at 13:30; Stop 10/15/17 at 14:08; Status DC Povidone Iodine (Betadine 5% Antisepsis Kit) 1 applic DRYER FEEDER PRN EACH NARE SEE LABEL COMMENTS; Start 10/05/17 at 12:00; Stop 10/08/17 at 11:59; Status DC Pravastatin Sodium (Pravachol) 40 mg DAILY PO Last administered on 10/15/17at 08: 34; Start 10/06/17 at 09:00; Status Future Hold Sodium Biphosphate/ Sodium Phosphate (Fleets Enema (Adult)) 133 ml ONCE ONCE UT Last administered on 10/15/17at 17:31; Start 10/15/17 at 16:00; Stop 10/15/17 at 16:01; Status DC Sodium Chloride 250 ml @ 15 mls/hr ONCE ONCE IV Last administered on at 18:21; Start 10/09/17 at 13:15; Stop 10/10/17 at 05:54; Status DC Sodium Chloride (NS Flush) 5 ml UNSCH PRN IV FLUSH SEE PROTOCOL TABLE Last administered on 10/13/17at 06:20; Start 10/05/17 at 14:00 Vancomycin HCl 2500 mg/Sodium Chloride 525 ml @ 262.5 mls/ hr Q18H IV Last administered on 10/14/17at 17:44; Start 10/09/17 at 12:00; Stop 10/15/17 at 14:08; Status DC Warfarin Sodium (Coumadin) 5 mg ONCE ONCE PO Last administered on 10/10/17at 15 :45; Start 10/10/17 at 16:00; Stop 10/10/17 at 16:01; Status DC Zolpidem Tartrate (Ambien) 5 mg HS PRN PO SLEEP; Start 10/05/17 at 21:00 Family History No known family history of renal disease. Social History Denies illicit drug use. Physical Exam Vital Signs Vital Signs Date Time Temp Pulse Resp B/P (MAP) Pulse Ox O2 Delivery O2 Flow Rate FiO2 10/15/17 16:00 97.4 68 20 144/65 (91) 95 10/15/17 12:00 98.0 60 18 106/56 (73) 97 10/15/17 08:35 Nasal Cannula 2.00 10/15/17 08:00 97.3 58 18 94/50 (65) 95 10/15/17 00:00 97.8 65 14 120/56 (77) 96 10/14/17 20:13 Nasal Cannula 2.00 10/14/17 20:00 99.8 69 19 121/60 (80) 97 Physical Exam GENERAL: Middle-age female lying in bed not in respiratory distress. SKIN: Warm and dry. HEAD: Normocephalic. EYES: No scleral icterus. No injection or drainage. NECK: , trachea midline. No JVD CARDIOVASCULAR: Regular rate and rhythm without murmurs, gallops, or rubs. RESPIRATORY: Breath sounds equal bilaterally. No accessory muscle use. GASTROINTESTINAL: Abdomen soft, non-tender, nondistended. MUSCULOSKELETAL: No cyanosis, or edema. Laboratory Laboratory Tests Test 10/15/17 06:37 Prothrombin Time 13.1 Prothromb Time International Ratio 1.3 Creatinine 2.95 Estimat Glomerular Filtration Rate 20 Date/Time Source Procedure Growth Status 10/09/17 13:55 Blood Peripheral Aerobic Blood Culture - Final NO GROWTH IN 5 DAYS Complete 10/09/17 13:55 Blood Peripheral Anaerobic Blood Culture - Final NO GROWTH IN 5 DAYS Complete 10/12/17 13:50 Wound Back Gram Stain - Final Complete 10/12/17 13:50 Wound Culture - Final S. Aureus Mrsa Complete Result Diagram: 10/12/17 1253 10/15/17 0637 Assessment and Plan Problem List: (1) Acute kidney insufficiency ICD Codes: N28.9 - Disorder of kidney and ureter, unspecified Status: Acute Plan: Acute renal insufficiency most likely related to vancomycin nephrotoxicity however need to exclude an obstructive process and she does have some urinary symptomatology. Remains be determined whether not there is a significant component of dehydration also.. Interstitial nephritis secondary to Protonix is a lesser consideration. Assessment and Plan Renal ultrasound to screen for possible obstructive process. Urine for eosinophils. Serum complements as well as urinalysis to screen for glomerulonephritis related to her infectious process. Continue IV hydration as ordered for the present. It is noted vancomycin has been discontinued by infectious disease. Medications should be adjusted for the patient's estimated GFR if clinically indicated. Avoid agents with significant potential for nephrotoxicity possible including NSAIDs for analgesia, iodine contrast agents. Gadolinium is contraindicated if the GFR is below 30. Patient was counseled regarding all of the above. Sandro Boyd MD Oct 15, 2017 19:15
[2017-10-15 20:00] VITALS: BP 126/60; PULSE 93; RESP 19; TEMP 96; O2SAT 97
--- NOTE | 2017-10-15 23:04 | RADRPT ---
EXAM DATE/TIME: 10/15/2017 19:52 [facility] COMPARISON: No previous studies available for comparison. INDICATIONS : Increased BUN/Creatnine. MEDICAL HISTORY : Stroke. Hypertension. Gastroesophageal reflux disease. Glasses. Ulcer. Pancreatitis. Arthritis. MRSA. SURGICAL HISTORY : Tonsillectomy. Appendectomy. Cholecystectomy. Adenoidectomy. Lump removed right breast. Hysterectomy. section. Bilateral knee replacement. ENCOUNTER: Initial ACUITY: 1 day PAIN SCORE: 0/10 LOCATION: Bilateral flank MEASUREMENTS: RIGHT KIDNEY: 11.5 x 5.7 x 5.5 cm LEFT KIDNEY: 7.5 x 3.3 x 4.8 cm FINDINGS: Image quality less than optimal secondary to patient body habitus. RIGHT KIDNEY: Renal cortex is normal in thickness and echotexture. No hydronephrosis, stone, or mass. There is a simple appearing cyst in the midportion measuring 1.6 cm. LEFT KIDNEY: Renal cortex is normal in thickness and echotexture. No hydronephrosis, stone, or mass. Left kidney is overall not well-visualized. BLADDER: Bladder is decompressed and therefore not evaluated. CONCLUSION: Image quality is less than optimal secondary to patient body habitus. However, no hydronephrosis or c oncerning abnormality is identified. Cole Boston MD on October 15, 2017 at 23:01 Board Certified Radiologist. This report was verified electronically.
--- NOTE | 2017-10-15 23:13 | RADRPT ---
EXAM DATE/TIME: 10/15/2017 20:44 [facility] COMPARISON: No previous studies available for comparison. INDICATIONS : Pain. History of L4-5 lami with dural leak. MEDICAL HISTORY : Hypertension. Renal failure, acute. SURGICAL HISTORY : Total knee replacement, left. Total knee replacement, right. Cholecystectomy. Lumber lami 09/24/17, Ri ght breast lump removed, Infus[place], ENCOUNTER: Initial ACUITY: 1 day PAIN SCORE: 8/10 LOCATION: Bilateral lower back regio. TECHNIQUE: Multiplanar multisequence MRI of the lumbar spine was performed without contrast. FINDINGS: The most caudal appearing lumbar vertebra is numbered as L5. VERTEBRAE: There has been a laminectomy at L4-L5. Mild edema is present within the L4-L5 articular facets. Verte bral body height is maintained and vertebral body bone marrow signal is within normal limits. There i s 2 mm of anterolisthesis of L4 on L5. CONUS: There is a CSF density structure with mass effect on the posterior aspect of the conus medullaris and cauda equina. This structure is estimated to measure approximately 6.5 cm in craniocaudal dimension and 8 mm in AP dimension. T12-L1: There is bilateral facet hypertrophy. No disc herniation or canal stenosis is present. The CSF densit y structure in the right posterior lateral aspect of the canal displaces the nerve roots anteriorly. No neural foraminal stenosis is visualized. L1-L2: There is bilateral facet hypertrophy. Nerve roots are displaced anteriorly within the canal. No disc herniation, canal stenosis, or neural foraminal narrowing is present. L2-L3: There is moderate facet hypertrophy. Nerve roots are slightly displaced anteriorly. No disc herniatio n, canal stenosis, or neural foraminal stenosis is present. L3-L4: There is moderate facet hypertrophy. A mild diffuse disc bulge is present. No significant spinal melisa l stenosis is present. There is mild neural foraminal narrowing bilaterally. The nerve roots are some what clumped in the anterior and mid aspect of the spinal canal. L4-L5: There is disc desiccation with mild decreased disc height and a diffuse disc bulge. Laminectomy has b een performed at this level. Canal is not visualized at this level which may be partially related to artifact. There is mild to moderate left neural foraminal stenosis. A CSF density collection extends from the laminectomy defect through the posterior paraspinous musculature and into the subcutaneous f at of the midline and right back. The fluid density collection measures approximately 11.8 x 3.3 cm a nd extends cranially from the thecal sac to the L1 level. L5-S1: Disc desiccation with decreased disc height and a diffuse disc bulge. There is facet hypertrophy. Lat eral recesses are effaced. There is mild neural foraminal stenosis bilaterally. CONCLUSION: 1. There is a fluid collection extending from the laminectomy defect at the L4-L5 level, through the posterior paraspinal musculature, and into the subcutaneous fat of the midline and right back. The cordero bcutaneous portion of the collection measures approximately 11.8 x 3.3 cm and extends almost to the s kin surface. 2. The spinal canal is not well-visualized at L4-L5. There is likely spinal canal stenosis. 3. There is a CSF density collection in the posterior spinal canal extending from approximately T12-L 2. The appearance is suspicious for an arachnoid cyst. It displaces the nerve roots in the thecal sac . Cole Boston MD on October 15, 2017 at 23:03 Board Certified Radiologist. This report was verified electronically.
[2017-10-16] VITALS: BP_SYST 120; PULSE 86; RESP 19; TEMP 97.4; O2SAT 97
[2017-10-16] MEDS: ACETAMINOPHEN/HYDROcodone 325 MG/7.5 MG TAB PO PRN ×5 (00:17→20:58)
[2017-10-16] MEDS: MORPHINE SULFATE 4 MG/ML INJ IV PUSH PRN ×4 (01:17→22:41)
[2017-10-16] MEDS: DEXTROSE 5%-LACTATED RING INJ 1,000 ML IV SCH ×4 (04:44→19:56)
--- NOTE | 2017-10-16 07:12 | PD.ORT.PN ---
Subjective Subjective Remarks POD# 11 Lumbar spine I&D MRSA C/O low back pain;no radiating leg pain;no headache;patient complaining of constipation Objective Vitals Vital Signs Date Time Temp Pulse Resp B/P (MAP) Pulse Ox O2 Delivery O2 Flow Rate FiO2 10/16/17 00:00 97.4 86 19 120/ 97 10/15/17 20:00 96.0 93 19 126/60 (82) 97 10/15/17 16:00 97.4 68 20 144/65 (91) 95 10/15/17 12:00 98.0 60 18 106/56 (73) 97 10/15/17 08:35 Nasal Cannula 2.00 10/15/17 08:00 97.3 58 18 94/50 (65) 95 I/O 10/15/17 10/15/17 10/15/17 10/16/17 10/16/17 10/16/17 07:00 15:00 23:00 07:00 15:00 23:00 Intake Total 1360 ml 620 ml 240 ml Output Total 300 ml Balance 1360 ml 320 ml 240 ml Intake Oral 360 ml 620 ml 240 ml IV Total 1000 ml Output Urine Total 300 ml # Voids 2 3 # Bowel Movements 0 2 Result Diagram: 10/12/17 1253 10/15/17 0637 Objective Remarks Mild serous drainage from lumbar incision Neurologically no focal deficit. Assessment & Plan Assessment and Plan pod #11 s/p lumbar spine I&D with MRSA infection: intra-op findings did not show evidence of epidural abscess headache improved continue antibiotics per I.D. ; vanco was stopped due to acute renal failure and daptomycin was started PT ordered for out of bed with assistive ambulation Coumadin for DVT prop per sliding scale Discussed with Dr. Naqvi regarding wound drainage. Pt clinically does not have persistent CSF leak. Ordered MRI scan lumbar spine WITHOUT contrast to ascess whether patient has developed recurrent fluid or abscess formation;will review MRI Scan pt is clinically much improved will see patient tomorrow Will transfer patient to medical service;I will continue to evaluate patient Dylan Martin MD Oct 16, 2017 07:12
[2017-10-16 08:00] VITALS: BP_SYST 101; BP_SYST 98; BP_DIAS 53; BP_DIAS 61; PULSE 67; PULSE 82; RESP 16; TEMP 97.6; TEMP 97.8; O2SAT 91; O2SAT 95
[2017-10-16] MEDS: MULTIVITAMINS/MINERALS THERAPEUTIC TAB PO SCH ×2 (08:04→19:53)
[2017-10-16] MEDS: PANTOPRAZOLE SOD 20 MG DELAYED RELEASE TAB PO SCH (08:04)
[2017-10-16] MEDS: DOCUSATE SODIUM 100 MG CAP PO SCH ×2 (08:04→19:53)
[2017-10-16] MEDS: GABAPENTIN 300 MG CAP PO SCH ×3 (08:04→17:11)
[2017-10-16] MEDS: FERROUS SULFATE 325 MG (65 MG ELEMENTAL IRON) TAB PO SCH ×2 (08:04→19:53)
--- NOTE | 2017-10-16 08:21 | PD.ORT.PN ---
Subjective Subjective Remarks POD# 11 Lumbar spine I&D MRSA C/O low back pain;no radiating leg pain;no headache;patient complaining of constipation Objective Vitals Vital Signs Date Time Temp Pulse Resp B/P (MAP) Pulse Ox O2 Delivery O2 Flow Rate FiO2 10/16/17 00:00 97.4 86 19 120/ 97 10/15/17 20:00 96.0 93 19 126/60 (82) 97 10/15/17 16:00 97.4 68 20 144/65 (91) 95 10/15/17 12:00 98.0 60 18 106/56 (73) 97 10/15/17 08:35 Nasal Cannula 2.00 I/O 10/15/17 10/15/17 10/15/17 10/16/17 10/16/17 10/16/17 07:00 15:00 23:00 07:00 15:00 23:00 Intake Total 1360 ml 620 ml 240 ml Output Total 300 ml Balance 1360 ml 320 ml 240 ml Intake Oral 360 ml 620 ml 240 ml IV Total 1000 ml Output Urine Total 300 ml # Voids 2 3 # Bowel Movements 0 2 Result Diagram: 10/12/17 1253 10/15/17 0637 Objective Remarks Mild serous drainage from lumbar incision Neurologically no focal deficit. Assessment & Plan Assessment and Plan pod #11 s/p lumbar spine I&D with MRSA infection: intra-op findings did not show evidence of epidural abscess headache improved continue antibiotics per I.D. ; vanco was stopped due to acute renal failure and daptomycin was started d/c therapy, bedrest with no higher than 30 degrees of elevation of bed Coumadin for DVT prop per sliding scale Reviewed MRI scan lumbar spine and discussed the patient's clinical condition with Dr. Justin Posada of radiology. Patient has epidural arachnoid cyst T12-L2, probably not compatible with epidural abscess. Patient has probable recurrent L4-5 dural leak. No evidence of recurrent abscess formation. Will attempt to manage this with bedrest and continued IV antibiotics; commonly the L4-5 dural leak will scar in for closure without having additional surgery. Since the patient is no longer clinically septic, aspiration of T12-L2 epidural is not indicated at this time Will transfer patient to medical service;I will continue to evaluate patient Dylan Martin MD Oct 16, 2017 08:21
[2017-10-16] MEDS ORDERED: DAPTOmycin INJ 600 MG in SODIUM CHLORIDE 0.9% INJ 100 ML IV SCH (09:00)
[2017-10-16] MEDS: WARFARIN SOD 5 MG TAB PO SCH (09:42)
--- NOTE | 2017-10-16 10:09 | HHI.PR ---
Subjective Remarks Follow-up lumbar epidural abscess 10/09/17-patient seen and examined, spiking fevers, denies any significant back pain. No nausea and vomiting with by mouth intake 10/10/17-patient seen and examined, continue to complain of severe back pain. 10/11/17-patient seen and examined, still continued to complain of headaches and reports some improvement of back pain 10/12/17-patient seen and examined, reports some improving of FOLEY, and complains of now severe BLE pain 10/13/17-patient seen and examined, complains of restroom to spasm. Spiking fevers 10/14/17-patient seen and examined, currently afebrile. States she was out of bed yesterday for 4 hours sitting in a chair 10/15/17-patient seen and examined, no complaint this AM. Afebrile and denies any FOLEY 10/16/17-patient seen and examined, No acute event overnight. Afebrile. Denies any significant back and legs pain Objective Vitals Vital Signs Date Time Temp Pulse Resp B/P (MAP) Pulse Ox O2 Delivery O2 Flow Rate FiO2 10/16/17 08:00 Nasal Cannula 2.00 10/16/17 08:00 97.6 67 16 98/53 (68) 95 10/16/17 00:00 97.4 86 19 120/ 97 10/15/17 20:00 96.0 93 19 126/60 (82) 97 10/15/17 16:00 97.4 68 20 144/65 (91) 95 10/15/17 12:00 98.0 60 18 106/56 (73) 97 I/O 10/15/17 10/15/17 10/15/17 10/16/17 10/16/17 10/16/17 07:00 15:00 23:00 07:00 15:00 23:00 Intake Total 1360 ml 620 ml 240 ml Output Total 300 ml Balance 1360 ml 320 ml 240 ml Intake Oral 360 ml 620 ml 240 ml IV Total 1000 ml Output Urine Total 300 ml # Voids 2 3 # Bowel Movements 0 2 Result Diagram: 10/12/17 1253 10/15/17 0637 Objective Remarks GENERAL: NAD SKIN: Warm and dry. HEAD: Normocephalic. EYES: No scleral icterus. No injection or drainage. NECK: Supple, trachea midline. No JVD or lymphadenopathy. CARDIOVASCULAR: Regular rate and rhythm without murmurs, gallops, or rubs. RESPIRATORY: Breath sounds equal bilaterally. No accessory muscle use. GASTROINTESTINAL: Abdomen soft, non-tender, nondistended. MUSCULOSKELETAL: No cyanosis, or edema. BACK: Nontender without obvious deformity. No CVA tenderness. Procedures s/p I&D lumbar epidural abscess A/P Problem List: (1) Abscess in epidural space of lumbar spine ICD Code: G06.1 - Intraspinal abscess and granuloma (2) Gram-positive bacteremia ICD Code: R78.81 - Bacteremia Assessment and Plan 61-year-old female with Abscess in the epidural space of lumbar spine Currently spiking fevers-resolved s/p irrigation and debridement and redo laminectomy L4-5 by orthopedic surgery Wound positive for MRSA Currently on vancomycin per ID Pain management accordingly Headache-Improving Acute renal failure Nephrology consultation pending Gram-positive bacteremia Currently on vancomycin Repeat blood culture NTD Normochromic normocytic anemia Transfused 1 unit packed red blood cell Monitor H&H continue ferrous sulfate for iron deficiency anemia Dyslipidemia Continue statin Hypertension Continue Lisinopril 5mg daily -DVT prophylaxis:on Coumadin- per orthoJonh Castelan MD Oct 16, 2017 10:09
[2017-10-16 12:00] VITALS: BP 130/58; PULSE 67; RESP 16; TEMP 98.2; O2SAT 97
[2017-10-16 13:00] LABS: INTERNATIONAL NORMALIZED RATIO 1.2 RATIO; PROTHROMBIN TIME - PATIENT 12.3 SEC (9.8-11.6)
[2017-10-16 13:04] LABS: CREATININE 2.96 MG/DL (0.50-1.00)
[2017-10-16 13:07] LABS: COMPLEMENT C3 157 MG/DL (90-180); COMPLEMENT C4 35 MG/DL (10-40)
[2017-10-16 13:13] LABS: ALBUMIN 2.7 GM/DL (3.4-5.0); BICARBONATE 27.5 MEQ/L (21.0-32.0); CALCIUM 8.7 MG/DL (8.5-10.1); CREATININE 2.96 MG/DL (0.50-1.00); PHOSPHORUS 5.1 MG/DL (2.5-4.9)
[2017-10-16 16:00] VITALS: BP 98/50; PULSE 66; RESP 16; TEMP 98; O2SAT 98
--- NOTE | 2017-10-16 16:47 | HHI.IDPN ---
Note Infectious Disease Note Patient states that she feels okay. Results of MRI of the back performed yesterday is noted. Fluid collection seen in the back. RN reports less drainage from the back wound today. Appreciate nephrology assistance with evaluation of renal function. She has no headache currently. Afebrile. Denies chills. Denies back pain currently. She has involuntary shaking movements of the head. She reports that she has had these before. 61-year-old black female who recently underwent lumbar spine surgery. The patient was treated for lumbar spine stenosis. She underwent L4-L5 bilateral decompressive hemilaminectomy along with decompression of nerve root and left side L4-L5 repair of dural leak. The patient was discharged from the hospital on September 26. She was taken to surgery and underwent incision and drainage of an lumbar abscess. PAST MEDICAL HISTORY 1. Dyslipidemia, 2. Status post laminectomy for spinal stenosis 3. Appendectomy, 4. Gastric bypass 5. Knee replacement 6. Gastroesophageal reflux disease, 7. Hysterectomy. ALLERGIES NO KNOWN DRUG ALLERGIES. ANTIBIOTIC Current Medications Medications (Trade) Dose Ordered Sig/Kylah Route PRN Reason Start Time Stop Time Status Last Admin Dose Admin Dextrose/Lactated Ringer's 1,000 ml @ 150 mls/hr Q6H40M IV 10/05/17 12:00 10/16/17 14:57 Sodium Chloride (NS Flush) 5 ml UNSCH PRN IV FLUSH SEE PROTOCOL TABLE 10/05/17 14:00 10/13/17 06:20 Heparin Sodium (Porcine) (Heparin Central Flush) 250 units UNSCH PRN IV FLUSH SEE PROTOCOL TABLE 10/05/17 14:00 10/13/17 20:31 Heparin Sodium (Porcine) (Heparin Central Flush) 500 units UNSCH IV FLUSH 10/05/17 14:00 Morphine Sulfate (Morphine Inj) 5 mg Q3H PRN IV PUSH BREAKTHROUGH PAIN 10/05/17 17:00 10/16/17 08:04 Acetaminophen/ Hydrocodone Bitart ([place] 7.5-325 Mg) 1 tab Q4H PRN PO PAIN SCALE 1 TO 5 10/05/17 17:00 Multivitamins/ Minerals Therapeutic (Theragran M Tab) 1 tab BID PO 10/06/17 09:00 12/05/17 08:59 10/16/17 08:04 Ondansetron HCl (Zofran Inj) 4 mg Q6H PRN IV PUSH NAUSEA OR VOMITING 10/05/17 17:00 Al Hydrox/Mg Hydrox/Simethicone (Mag-Al Plus Susp Liq) 30 ml Q6H PRN PO INDIGESTION 10/05/17 17:00 Zolpidem Tartrate (Ambien) 5 mg HS PRN PO SLEEP 10/05/17 21:00 Bisacodyl (Dulcolax Supp) 10 mg DAILY PRN RECTAL CONSTIPATION 10/05/17 17:15 Naloxone HCl (Narcan Inj) 0.4 mg UNSCH PRN IV PUSH RESPIRATORY RATE LESS THAN 10 10/05/17 17:00 Pravastatin Sodium (Pravachol) 40 mg DAILY PO 10/06/17 09:00 Future Hold 10/15/17 08:34 Pantoprazole Sodium (Protonix) 20 mg DAILY PO 10/06/17 09:00 10/16/17 08:04 Acetaminophen/ Hydrocodone Bitart ([place] 7.5-325 Mg) 2 tab Q4HR PRN PO PAIN SCALE 6 TO 10 10/06/17 09:00 10/16/17 12:40 Docusate Sodium (Colace) 100 mg BID PO 10/06/17 09:30 10/16/17 08:04 Gabapentin (Neurontin) 300 mg TID PO 10/07/17 09:00 10/16/17 12:39 Acetaminophen (Tylenol) 650 mg Q4H PRN PO fever > 101 10/08/17 02:45 10/13/17 11:31 Warfarin Sodium (Coumadin) GIVE 5MG IF INR < 1.2 G... DAILY@1000 PO 10/09/17 10:00 10/15/17 08:34 Acetaminophen (Tylenol) 650 mg Q4H PRN PO SEE LABEL COMMENTS 10/09/17 13:15 Diphenhydramine HCl (Benadryl) 25 mg Q4H PRN PO SEE LABEL COMMENTS 10/09/17 13:15 Lisinopril (Prinivil) 5 mg DAILY PO 10/10/17 09:00 Future Hold 10/15/17 08:34 Ferrous Sulfate (Ferrous Sulfate) 325 mg BID PO 10/10/17 21:00 10/16/17 08:04 Magnesium Hydroxide (Milk Of Magnesia Liq) 30 ml Q6H PRN PO CONSTIPATION 10/14/17 09:45 3/5/18 04:41 Daptomycin 600 mg/ Sodium Chloride 100 ml @ 200 mls/hr Q48H IV 10/18/17 09:00 OBJECTIVE: Vital Signs Date Time Temp Pulse Resp B/P (MAP) Pulse Ox O2 Delivery O2 Flow Rate FiO2 10/16/17 16:00 98.0 66 16 98/50 (66) 98 10/16/17 12:00 98.2 67 16 130/58 (82) 97 10/16/17 08:00 Nasal Cannula 2.00 10/16/17 08:00 97.6 67 16 98/53 (68) 95 10/16/17 00:00 97.4 86 19 120/ 97 10/15/17 20:00 96.0 93 19 126/60 (82) 97 Laboratory Tests Test 10/15/17 06:37 10/16/17 12:17 Creatinine 2.95 MG/DL 2.96 MG/DL Estimat Glomerular Filtration Rate 20 ML/MIN 20 ML/MIN Blood Urea Nitrogen 29 MG/DL Random Glucose 107 MG/DL Calcium Level 9.0 MG/DL Sodium Level 138 MEQ/L Potassium Level 4.2 MEQ/L Chloride Level 103 MEQ/L Carbon Dioxide Level 31.0 MEQ/L Albumin 2.7 GM/DL Phosphorus Level 5.1 MG/DL Anion Gap 4 MEQ/L IMAGING: Last 48 hours Impressions Venous Access Device Injection 10/15/17 0000 Signed Impressions: Service Date/Time: Sunday, October 15, 2017 16:44 - CONCLUSION: Port in good position. Fibrin sheath will prevent blood aspiration. Consideration could be made to fibrin sheath stripping to restore this function of the port. Dipesh Auguste Jr., MD Renal Ultrasound 10/15/17 0000 Signed Impressions: Service Date/Time: Sunday, October 15, 2017 19:52 - CONCLUSION: Image quality is less than optimal secondary to patient body habitus. However, no hydronephrosis or concerning abnormality is identified. Cole Boston MD Lumbar Spine MRI 10/15/17 0000 Signed Impressions: Service Date/Time: Sunday, October 15, 2017 20:44 - CONCLUSION: 1. There is a fluid collection extending from the laminectomy defect at the L4-L5 level, through the posterior paraspinal musculature, and into the subcutaneous fat of the midline and right back. The subcutaneous portion of the collection measures approximately 11.8 x 3.3 cm and extends almost to the skin surface. 2. The spinal canal is not well-visualized at L4-L5. There is likely spinal canal stenosis. 3. There is a CSF density collection in the posterior spinal canal extending from approximately T12-L2. The appearance is suspicious for an arachnoid cyst. It displaces the nerve roots in the thecal sac. Cole Boston MD Chest X-Ray 10/08/17 0000 Signed Impressions: Service Date/Time: Sunday, October 08, 2017 05:16 - CONCLUSION: 1. Low lung volumes with mild patchy bilateral lower lung zone airspace disease, likely atelectasis. Foreign Blancas MD PHYSICAL EXAMINATION GENERAL: Awake and alert. No acute distress. HEENT: Extraocular movements grossly intact. No icterus. Oropharynx moist mucosa without lesions. NECK: Supple without adenopathy. LUNGS: Decreased breath sounds. HEART: Regular S1, S2 without murmurs, rubs or gallops. ABDOMEN: Bowel sounds present, soft, no tenderness. BACK: Little drainage coming from the back incision. EXTREMITIES: No clubbing or cyanosis or edema. SKIN: No rash. NEUROLOGIC: No gross focal findings. PSYCHIATRIC: Calm and cooperative. IMPRESSION 1. Lumbar abscess. MRSA. Post drainage. Patient continues to have drainage from the back wound. Drainage is less today. Fluid collection noted on MRI. Dr. Martin's note appreciated. 2. Fever. Improved. 3. Postoperative wound infection of the lumbar spine. 4. Post laminectomy and repair of epidural tear. 5. Acute renal failure. New problem - Probably related to vancomycin. Nephrology following. No further decline in renal function from yesterday. RECOMMENDATIONS 1. Continue daptomycin. Continue to hold Pravachol while on daptomycin. Elevated CPK can occur with the daptomycin and patient at increased risk while On statin. 2. Monitor the temperature. 3. Monitor the back drainage 4. Monitor clinical status. Patient appears clinically improved. When improvement in the renal function occurs, plans can be made for continuing treatment outpatient. However the patient will require intravenous antibiotics with daptomycin because of the deteriorating Renal function while on vancomycin. Treatment and duration with IV antibiotic for 6 weeks from the last positive wound culture. Shukri Naqvi MD Oct 16, 2017 16:47
[2017-10-16 20:00] VITALS: BP 131/90; PULSE 80; RESP 19; TEMP 97.4; O2SAT 95
[2017-10-17] VITALS: BP 110/54; PULSE 65; RESP 19; TEMP 98.1; O2SAT 98
[2017-10-17] MEDS: ACETAMINOPHEN/HYDROcodone 325 MG/7.5 MG TAB PO PRN ×5 (01:24→21:58)
[2017-10-17] MEDS: DEXTROSE 5%-LACTATED RING INJ 1,000 ML IV SCH ×3 (05:09→17:23)
[2017-10-17] MEDS: MORPHINE SULFATE 4 MG/ML INJ IV PUSH PRN ×3 (06:55→18:45)
--- NOTE | 2017-10-17 07:54 | PD.ORT.PN ---
Subjective Subjective Remarks POD# 12 Lumbar spine I&D MRSA No c/o of low back pain;no radiating leg pain;no headache Spoke on phone with daughter Kerry;explained at length patients current condition and future care Objective Vitals Vital Signs Date Time Temp Pulse Resp B/P (MAP) Pulse Ox O2 Delivery O2 Flow Rate FiO2 10/17/17 00:00 98.1 65 19 110/54 (72) 98 10/16/17 20:00 97.4 80 19 131/90 (104) 95 10/16/17 16:00 98.0 66 16 98/50 (66) 98 10/16/17 12:00 98.2 67 16 130/58 (82) 97 10/16/17 08:00 Nasal Cannula 2.00 10/16/17 08:00 97.6 67 16 98/53 (68) 95 I/O 10/16/17 10/16/17 10/16/17 10/17/17 10/17/17 10/17/17 07:00 15:00 23:00 07:00 15:00 23:00 Intake Total 1240 ml 2100 ml 1800 ml 1240 ml Output Total 250 ml Balance 1240 ml 1850 ml 1800 ml 1240 ml Intake Oral 240 ml 800 ml 240 ml IV Total 1000 ml 2100 ml 1000 ml 1000 ml Output Urine Total 250 ml # Voids 3 5 3 # Bowel Movements 2 0 1 Result Diagram: 10/16/17 1217 Other Results Laboratory Tests Test 10/16/17 12:17 Prothromb Time International Ratio 1.2 RATIO Prothrombin Time 12.3 SEC (9.8-11.6) Objective Remarks No drainage from lumbar incision Neurologically no focal deficit. Assessment & Plan Assessment and Plan pod #12 s/p lumbar spine I&D with MRSA infection: intra-op findings did not show evidence of epidural abscess No headache;no wound drainage;clinically patient looks improved continue antibiotics per I.D. ; vanco was stopped due to acute renal failure and daptomycin was started Bedrest with no higher than 30 degrees of elevation of bed Coumadin for DVT prop per sliding scale. Will transfer patient to medical service;I will continue to evaluate patient Contine current treatment Dylan Martin MD Oct 17, 2017 07:54
[2017-10-17 08:00] VITALS: BP 134/61; PULSE 73; RESP 19; TEMP 95.5; O2SAT 100
[2017-10-17 08:35] LABS: INTERNATIONAL NORMALIZED RATIO 1.2 RATIO; PROTHROMBIN TIME - PATIENT 11.7 SEC (9.8-11.6)
[2017-10-17] MEDS: GABAPENTIN 300 MG CAP PO SCH (09:18)
[2017-10-17] MEDS: FERROUS SULFATE 325 MG (65 MG ELEMENTAL IRON) TAB PO SCH ×2 (09:18→21:57)
[2017-10-17] MEDS: MULTIVITAMINS/MINERALS THERAPEUTIC TAB PO SCH ×2 (09:18→21:57)
[2017-10-17] MEDS: DOCUSATE SODIUM 100 MG CAP PO SCH ×2 (09:18→21:57)
[2017-10-17] MEDS: WARFARIN SOD 5 MG TAB PO SCH (09:18)
[2017-10-17] MEDS: PANTOPRAZOLE SOD 20 MG DELAYED RELEASE TAB PO SCH (09:18)
--- NOTE | 2017-10-17 11:16 | HHI.PR ---
Subjective Remarks Follow-up lumbar epidural abscess 10/09/17-patient seen and examined, spiking fevers, denies any significant back pain. No nausea and vomiting with by mouth intake 10/10/17-patient seen and examined, continue to complain of severe back pain. 10/11/17-patient seen and examined, still continued to complain of headaches and reports some improvement of back pain 10/12/17-patient seen and examined, reports some improving of FOLEY, and complains of now severe BLE pain 10/13/17-patient seen and examined, complains of restroom to spasm. Spiking fevers 10/14/17-patient seen and examined, currently afebrile. States she was out of bed yesterday for 4 hours sitting in a chair 10/15/17-patient seen and examined, no complaint this AM. Afebrile and denies any FOLEY 10/16/17-patient seen and examined, No acute event overnight. Afebrile. Denies any significant back and legs pain 10/17/17-patient seen and examined,+back pain, +constipation Objective Vitals Vital Signs Date Time Temp Pulse Resp B/P (MAP) Pulse Ox O2 Delivery O2 Flow Rate FiO2 10/17/17 09:15 Nasal Cannula 2.00 10/17/17 08:00 95.5 73 19 134/61 (85) 100 10/17/17 00:00 98.1 65 19 110/54 (72) 98 10/16/17 20:00 97.4 80 19 131/90 (104) 95 10/16/17 16:00 98.0 66 16 98/50 (66) 98 10/16/17 12:00 98.2 67 16 130/58 (82) 97 I/O 10/16/17 10/16/17 10/16/17 10/17/17 10/17/17 10/17/17 07:00 15:00 23:00 07:00 15:00 23:00 Intake Total 1240 ml 2100 ml 1800 ml 1240 ml Output Total 250 ml Balance 1240 ml 1850 ml 1800 ml 1240 ml Intake Oral 240 ml 800 ml 240 ml IV Total 1000 ml 2100 ml 1000 ml 1000 ml Output Urine Total 250 ml # Voids 3 5 3 # Bowel Movements 2 0 1 Result Diagram: 10/16/17 1217 Objective Remarks GENERAL: NAD SKIN: Warm and dry. HEAD: Normocephalic. EYES: No scleral icterus. No injection or drainage. NECK: Supple, trachea midline. No JVD or lymphadenopathy. CARDIOVASCULAR: Regular rate and rhythm without murmurs, gallops, or rubs. RESPIRATORY: Breath sounds equal bilaterally. No accessory muscle use. GASTROINTESTINAL: Abdomen soft, non-tender, nondistended. MUSCULOSKELETAL: No cyanosis, or edema. BACK: Nontender without obvious deformity. No CVA tenderness. Procedures s/p I&D lumbar epidural abscess A/P Problem List: (1) Abscess in epidural space of lumbar spine ICD Code: G06.1 - Intraspinal abscess and granuloma (2) Gram-positive bacteremia ICD Code: R78.81 - Bacteremia Assessment and Plan 61-year-old female with Abscess in the epidural space of lumbar spine Currently spiking fevers-resolved s/p irrigation and debridement and redo laminectomy L4-5 by orthopedic surgery Wound positive for MRSA Currently on vancomycin per ID Pain management accordingly Bedrest per Ortho Headache-Improved Acute renal failure Nephrology input appreciated Gram-positive bacteremia Currently on vancomycin, Daptomycin Repeat blood culture NTD Normochromic normocytic anemia Transfused 1 unit packed red blood cell Monitor H&H continue ferrous sulfate for iron deficiency anemia Dyslipidemia Continue statin Hypertension Continue Lisinopril 5mg daily -DVT prophylaxis:on Coumadin- per ortho. Jonh Jeff MD Oct 17, 2017 11:16
[2017-10-17 12:00] VITALS: BP 123/56; PULSE 66; RESP 19; TEMP 96.7; O2SAT 96
[2017-10-17] MEDS: GABAPENTIN 100 MG CAP PO SCH ×2 (13:05→17:22)
[2017-10-17 13:16] LABS: AMORPHOUS SEDIMENT, URINE RARE; BACTERIA, URINE RARE /hpf; BILIRUBIN, URINE NEG (NEG); BLOOD, URINE TRACE (NEG); GLUCOSE,URINE NEG (NEG); KETONE, URINE NEG (NEG); MUCUS URINE FEW /lpf (OCC); NITRITE,URINE NEG (NEG); PH, URINE 5.5 (5.0-8.5); SQUAMOUS EPITHELIAL CELL URINE 1 /hpf (0-5); URINE COLOR LIGHT-YELLOW (YELLW/STRAW); URINE LEUKOCYTE ESTERASE NEG (NEG)
[2017-10-17 14:14] LABS: ALBUMIN 2.6 GM/DL (3.4-5.0); CALCIUM 8.9 MG/DL (8.5-10.1); CREATININE 2.96 MG/DL (0.50-1.00)
[2017-10-17 14:15] LABS: PHOSPHORUS 5.2 MG/DL (2.5-4.9)
[2017-10-17 16:00] VITALS: BP 119/60; PULSE 68; RESP 19; TEMP 97.3; O2SAT 95
[2017-10-17] MEDS ORDERED: WARFARIN SOD 5 MG TAB PO ONE (16:00)
--- NOTE | 2017-10-17 16:38 | HHI.IDPN ---
Note Infectious Disease Note Patient states that she feels okay. Has pain in the back 7/10 scale. RN reports the drainage in the back has not increased compared to yesterday. Appreciate nephrology assistance with evaluation of renal function. Afebrile. Denies chills. Not having involuntary shaking movements of the head today. 61-year-old black female who recently underwent lumbar spine surgery. The patient was treated for lumbar spine stenosis. She underwent L4-L5 bilateral decompressive hemilaminectomy along with decompression of nerve root and left side L4-L5 repair of dural leak. The patient was discharged from the hospital on September 26. She was taken to surgery and underwent incision and drainage of an lumbar abscess. PAST MEDICAL HISTORY 1. Dyslipidemia, 2. Status post laminectomy for spinal stenosis 3. Appendectomy, 4. Gastric bypass 5. Knee replacement 6. Gastroesophageal reflux disease, 7. Hysterectomy. ALLERGIES NO KNOWN DRUG ALLERGIES. ANTIBIOTIC Current Medications Medications (Trade) Dose Ordered Sig/Kylah Route PRN Reason Start Time Stop Time Status Last Admin Dose Admin Dextrose/Lactated Ringer's 1,000 ml @ 150 mls/hr Q6H40M IV 10/05/17 12:00 10/17/17 11:10 Sodium Chloride (NS Flush) 5 ml UNSCH PRN IV FLUSH SEE PROTOCOL TABLE 10/05/17 14:00 10/13/17 06:20 Heparin Sodium (Porcine) (Heparin Central Flush) 250 units UNSCH PRN IV FLUSH SEE PROTOCOL TABLE 10/05/17 14:00 10/13/17 20:31 Heparin Sodium (Porcine) (Heparin Central Flush) 500 units UNSCH IV FLUSH 10/05/17 14:00 Morphine Sulfate (Morphine Inj) 5 mg Q3H PRN IV PUSH BREAKTHROUGH PAIN 10/05/17 17:00 10/17/17 13:06 Acetaminophen/ Hydrocodone Bitart ([place] 7.5-325 Mg) 1 tab Q4H PRN PO PAIN SCALE 1 TO 5 10/05/17 17:00 Multivitamins/ Minerals Therapeutic (Theragran M Tab) 1 tab BID PO 10/06/17 09:00 12/05/17 08:59 10/17/17 09:18 Ondansetron HCl (Zofran Inj) 4 mg Q6H PRN IV PUSH NAUSEA OR VOMITING 10/05/17 17:00 Al Hydrox/Mg Hydrox/Simethicone (Mag-Al Plus Susp Liq) 30 ml Q6H PRN PO INDIGESTION 10/05/17 17:00 Zolpidem Tartrate (Ambien) 5 mg HS PRN PO SLEEP 10/05/17 21:00 Bisacodyl (Dulcolax Supp) 10 mg DAILY PRN RECTAL CONSTIPATION 10/05/17 17:15 Naloxone HCl (Narcan Inj) 0.4 mg UNSCH PRN IV PUSH RESPIRATORY RATE LESS THAN 10 10/05/17 17:00 Pravastatin Sodium (Pravachol) 40 mg DAILY PO 10/06/17 09:00 Future Hold 10/15/17 08:34 Pantoprazole Sodium (Protonix) 20 mg DAILY PO 10/06/17 09:00 10/17/17 09:18 Acetaminophen/ Hydrocodone Bitart ([place] 7.5-325 Mg) 2 tab Q4HR PRN PO PAIN SCALE 6 TO 10 10/06/17 09:00 10/17/17 09:18 Docusate Sodium (Colace) 100 mg BID PO 10/06/17 09:30 10/17/17 09:18 Acetaminophen (Tylenol) 650 mg Q4H PRN PO fever > 101 10/08/17 02:45 10/13/17 11:31 Warfarin Sodium (Coumadin) GIVE 5MG IF INR < 1.2 G... DAILY@1000 PO 10/09/17 10:00 10/17/17 09:18 Acetaminophen (Tylenol) 650 mg Q4H PRN PO SEE LABEL COMMENTS 10/09/17 13:15 Diphenhydramine HCl (Benadryl) 25 mg Q4H PRN PO SEE LABEL COMMENTS 10/09/17 13:15 Lisinopril (Prinivil) 5 mg DAILY PO 10/10/17 09:00 Future Hold 10/15/17 08:34 Ferrous Sulfate (Ferrous Sulfate) 325 mg BID PO 10/10/17 21:00 10/17/17 09:18 Magnesium Hydroxide (Milk Of Magnesia Liq) 30 ml Q6H PRN PO CONSTIPATION 10/14/17 09:45 10/15/17 04:41 Daptomycin 600 mg/ Sodium Chloride 100 ml @ 200 mls/hr Q48H IV 10/18/17 09:00 Gabapentin (Neurontin) 200 mg TID PO 10/17/17 13:00 10/17/17 13:05 OBJECTIVE: Vital Signs Date Time Temp Pulse Resp B/P (MAP) Pulse Ox O2 Delivery O2 Flow Rate FiO2 10/17/17 12:00 96.7 66 19 123/56 (78) 96 10/17/17 09:15 Nasal Cannula 2.00 10/17/17 08:00 95.5 73 19 134/61 (85) 100 10/17/17 00:00 98.1 65 19 110/54 (72) 98 10/16/17 20:00 97.4 80 19 131/90 (104) 95 Laboratory Tests Test 10/16/17 12:17 10/17/17 08:00 Blood Urea Nitrogen 29 MG/DL 28 MG/DL Creatinine 2.96 MG/DL 2.96 MG/DL Random Glucose 107 MG/DL 113 MG/DL Calcium Level 9.0 MG/DL 8.9 MG/DL Sodium Level 138 MEQ/L 140 MEQ/L Potassium Level 4.2 MEQ/L 4.3 MEQ/L Chloride Level 103 MEQ/L 104 MEQ/L Carbon Dioxide Level 31.0 MEQ/L 28.0 MEQ/L Albumin 2.7 GM/DL 2.6 GM/DL Phosphorus Level 5.1 MG/DL 5.2 MG/DL Anion Gap 4 MEQ/L 8 MEQ/L Estimat Glomerular Filtration Rate 20 ML/MIN 20 ML/MIN Total Creatine Kinase 183 U/L IMAGING: Venous Access Device Injection 10/15/17 0000 Signed Impressions: Service Date/Time: Sunday, October 15, 2017 16:44 - CONCLUSION: Port in good position. Fibrin sheath will prevent blood aspiration. Consideration could be made to fibrin sheath stripping to restore this function of the port. Dipesh Auguste Jr., MD Renal Ultrasound 10/15/17 0000 Signed Impressions: Service Date/Time: Sunday, October 15, 2017 19:52 - CONCLUSION: Image quality is less than optimal secondary to patient body habitus. However, no hydronephrosis or concerning abnormality is identified. Cole Boston MD Lumbar Spine MRI 10/15/17 0000 Signed Impressions: Service Date/Time: Sunday, October 15, 2017 20:44 - CONCLUSION: 1. There is a fluid collection extending from the laminectomy defect at the L4-L5 level, through the posterior paraspinal musculature, and into the subcutaneous fat of the midline and right back. The subcutaneous portion of the collection measures approximately 11.8 x 3.3 cm and extends almost to the skin surface. 2. The spinal canal is not well-visualized at L4-L5. There is likely spinal canal stenosis. 3. There is a CSF density collection in the posterior spinal canal extending from approximately T12-L2. The appearance is suspicious for an arachnoid cyst. It displaces the nerve roots in the thecal sac. Cole Boston MD Chest X-Ray 10/08/17 0000 Signed Impressions: Service Date/Time: Sunday, October 08, 2017 05:16 - CONCLUSION: 1. Low lung volumes with mild patchy bilateral lower lung zone airspace disease, likely atelectasis. Foreign Blancas MD PHYSICAL EXAMINATION GENERAL: Awake and alert. No acute distress. HEENT: Extraocular movements grossly intact. No icterus. Oropharynx moist mucosa without lesions. NECK: Supple without adenopathy. LUNGS: Decreased clear breath sounds. HEART: Regular S1, S2 without murmurs, rubs or gallops. ABDOMEN: Bowel sounds present, soft, no tenderness. BACK: Little drainage coming from the back incision. EXTREMITIES: No clubbing or cyanosis or edema. SKIN: No rash. NEUROLOGIC: No gross focal findings. PSYCHIATRIC: Calm and cooperative. IMPRESSION 1. Lumbar abscess. MRSA. Post drainage. Patient continues to have drainage from the back wound. Drainage has decreased. Fluid collection noted on MRI. Dr. Matrin's note appreciated. 2. Fever. Improved. 3. Postoperative wound infection of the lumbar spine. 4. Post laminectomy and repair of epidural tear. 5. Acute renal failure. New problem - Probably related to vancomycin. Nephrology following. No further decline in renal function. RECOMMENDATIONS 1. Continue daptomycin. Continue to hold Pravachol while on daptomycin. Elevated CPK can occur with the daptomycin and patient at increased risk while On statin. May need alternate cholesterol-lowering medication while on daptomycin. 2. Monitor the temperature. 3. Monitor the back drainage 4. Monitor clinical status. Patient appears clinically improved. When improvement in the renal function occurs, plans can be made for continuing treatment outpatient. However the patient will require intravenous antibiotics with daptomycin because of the deteriorating Renal function while on vancomycin. Treatment and duration with IV antibiotic for 6 weeks from the last positive wound culture. Shukri Naqvi MD Oct 17, 2017 16:38
--- NOTE | 2017-10-17 18:18 | HHI.NPPN ---
Subjective History of Present Illness This patient is a 62-year-old female who apparently had no previous history of chronic kidney disease. She does have a history of hypertension and during a recent previous admission underwent lumbar surgery for spinal stenosis. She had a decompressive hemilaminectomy laminectomy L4-L5 and discharged on September 26, 2017. Subsequently readmitted on October 01, 2017 with drainage from the wounds and back pain. Subsequently diagnosed as having an epidural abscess and underwent surgery for same. Has been receiving vancomycin which was subsequently discontinued October 15, 2017 as it was noted that his serum creatinine level had risen dramatically. On questioning the patient she also is indicating some difficulty voiding as well as constipation. Interval History Pt overall feeling OK. (Yumiko Willson) Review of Systems General Constitutional: Fatigue (Yumiko Willson) Musculoskeletal MS: Pain/Stiffness (Yumiko Willson) Objective Data Data Vital Signs Date Time Temp Pulse Resp B/P (MAP) Pulse Ox O2 Delivery O2 Flow Rate FiO2 10/17/17 16:00 97.3 68 19 119/60 (79) 95 10/17/17 12:00 96.7 66 19 123/56 (78) 96 10/17/17 09:15 Nasal Cannula 2.00 10/17/17 08:00 95.5 73 19 134/61 (85) 100 10/17/17 00:00 98.1 65 19 110/54 (72) 98 10/16/17 20:00 97.4 80 19 131/90 (104) 95 (Yumiko Willson) -: 10/17/17 0800 Imaging Last Impressions Venous Access Device Injection 10/15/17 0000 Signed Impressions: Service Date/Time: Sunday, October 15, 2017 16:44 - CONCLUSION: Port in good position. Fibrin sheath will prevent blood aspiration. Consideration could be made to fibrin sheath stripping to restore this function of the port. Dipesh Auguste Jr., MD Renal Ultrasound 10/15/17 0000 Signed Impressions: Service Date/Time: Sunday, October 15, 2017 19:52 - CONCLUSION: Image quality is less than optimal secondary to patient body habitus. However, no hydronephrosis or concerning abnormality is identified. Cole Boston MD Lumbar Spine MRI 10/15/17 0000 Signed Impressions: Service Date/Time: Sunday, October 15, 2017 20:44 - CONCLUSION: 1. There is a fluid collection extending from the laminectomy defect at the L4-L5 level, through the posterior paraspinal musculature, and into the subcutaneous fat of the midline and right back. The subcutaneous portion of the collection measures approximately 11.8 x 3.3 cm and extends almost to the skin surface. 2. The spinal canal is not well-visualized at L4-L5. There is likely spinal canal stenosis. 3. There is a CSF density collection in the posterior spinal canal extending from approximately T12-L2. The appearance is suspicious for an arachnoid cyst. It displaces the nerve roots in the thecal sac. Cole Boston MD Chest X-Ray 10/08/17 0000 Signed Impressions: Service Date/Time: Sunday, October 08, 2017 05:16 - CONCLUSION: 1. Low lung volumes with mild patchy bilateral lower lung zone airspace disease, likely atelectasis. Foreign Blancas MD Medication Review Current Medications Medications (Trade) Dose Ordered Sig/Kylah Route Start Time Stop Time Status Last Admin Dextrose/Lactated Ringer's 1,000 ml @ 150 mls/hr Q6H40M IV 10/05/17 12:00 10/17/17 17:23 (NS Flush) 5 ml UNSCH PRN IV FLUSH 10/05/17 14:00 10/13/17 06:20 (Heparin Central Flush) 250 units UNSCH PRN IV FLUSH 10/05/17 14:00 10/13/17 20:31 (Heparin Central Flush) 500 units UNSCH IV FLUSH 10/05/17 14:00 (Morphine Inj) 5 mg Q3H PRN IV PUSH 10/05/17 17:00 10/17/17 13:06 ([place] 7.5-325 Mg) 1 tab Q4H PRN PO 10/05/17 17:00 (Theragran M Tab) 1 tab BID PO 10/06/17 09:00 12/05/17 08:59 10/17/17 09:18 (Zofran Inj) 4 mg Q6H PRN IV PUSH 10/05/17 17:00 (Mag-Al Plus Susp Liq) 30 ml Q6H PRN PO 10/05/17 17:00 (Ambien) 5 mg HS PRN PO 10/05/17 21:00 (Dulcolax Supp) 10 mg DAILY PRN RECTAL 10/05/17 17:15 (Narcan Inj) 0.4 mg UNSCH PRN IV PUSH 10/05/17 17:00 (Pravachol) 40 mg DAILY PO 10/06/17 09:00 Future Hold 10/15/17 08:34 (Protonix) 20 mg DAILY PO 10/06/17 09:00 10/17/17 09:18 ([place] 7.5-325 Mg) 2 tab Q4HR PRN PO 10/06/17 09:00 10/17/17 17:23 (Colace) 100 mg BID PO 10/06/17 09:30 10/17/17 09:18 (Tylenol) 650 mg Q4H PRN PO 10/08/17 02:45 10/13/17 11:31 (Coumadin) GIVE 5MG IF INR < 1.2 G... DAILY@1000 PO 10/09/17 10:00 10/17/17 09:18 (Tylenol) 650 mg Q4H PRN PO 10/09/17 13:15 (Benadryl) 25 mg Q4H PRN PO 10/09/17 13:15 (Prinivil) 5 mg DAILY PO 10/10/17 09:00 Future Hold 10/15/17 08:34 (Ferrous Sulfate) 325 mg BID PO 10/10/17 21:00 10/17/17 09:18 (Milk Of Magnesia Liq) 30 ml Q6H PRN PO 10/14/17 09:45 10/15/17 04:41 Daptomycin 600 mg/ Sodium Chloride 100 ml @ 200 mls/hr Q48H IV 10/18/17 09:00 (Neurontin) 200 mg TID PO 10/17/17 13:00 10/17/17 17:22 (Yumiko Willson) Physical Exam General Appearance: No Acute Distress, Comfortable (Yumiko Willson) Neck Neck Exam: Neck Supple, Trachea Midline (Yumiko Willson) Pulmonary Resp Exam: Clear Bilaterally, Diminished Breath Sounds (Yumiko Willson) Cardiology CV Exam: Regular, Normal Sinus Rhythm (Yumiko Willson) Gastrointestinal/Abdomen GI Exam: Soft, Non-Tender (Yumiko Willson) Extremeties Extremities Exam: Trace Edema (in hips) (Yumiko Willson) Neurologic Neuro Exam: Alert, Awake (Yumiko Willson) Psychiatric Psych Exam: Appropriate Responses (Yumiko Willson) Assessment/Plan Problem List: (1) Acute kidney insufficiency ICD Codes: N28.9 - Disorder of kidney and ureter, unspecified Status: Acute Plan: Acute renal insufficiency most likely related to vancomycin nephrotoxicity. Renal US shows no hydronephrosis, but is noted that her L kidney is read as atrophic at 7.5cm. Radiology does mention difficult study based on her body habitus. Uncertain significance. To continue on IVF but decrease rate slightly. Hopefully renal functions will improve over the next few days once Vancomycin clears. We will continue to monitor. (Yumiko Willson) Plan The exam, history, and the medical decision-making described in the above note were completed with the assistance of the PA-C. I reviewed and agree with the findings presented. I attest that I had a [id number] encounter with the patient on the same day, and personally performed and documented my assessment and findings in the medical record. (Sandro Boyd MD) Yumiko Willson Oct 17, 2017 18:18 Sandro Boyd MD Oct 19, 2017 13:58
[2017-10-17 20:00] VITALS: BP 141/64; PULSE 82; RESP 20; TEMP 99.4; O2SAT 94
[2017-10-18] VITALS: BP 114/58; PULSE 75; RESP 16; TEMP 99.4; O2SAT 95
[2017-10-18] MEDS: ACETAMINOPHEN/HYDROcodone 325 MG/7.5 MG TAB PO PRN ×4 (03:43→21:41)
[2017-10-18] MEDS: DEXTROSE 5%-LACTATED RING INJ 1,000 ML IV SCH ×3 (03:44→23:22)
[2017-10-18 04:00] VITALS: BP 133/64; PULSE 71; RESP 20; TEMP 96.7; O2SAT 99
--- NOTE | 2017-10-18 07:35 | PD.ORT.PN ---
Subjective Subjective Remarks POD# 13 Lumbar spine I&D MRSA No c/o of low back pain;no radiating leg pain;no headache Objective Vitals Vital Signs Date Time Temp Pulse Resp B/P (MAP) Pulse Ox O2 Delivery O2 Flow Rate FiO2 10/18/17 04:00 96.7 71 20 133/64 (87) 99 10/18/17 00:00 99.4 75 16 114/58 (76) 95 10/17/17 22:08 Nasal Cannula 2.00 10/17/17 20:00 99.4 82 20 141/64 (89) 94 10/17/17 16:00 97.3 68 19 119/60 (79) 95 10/17/17 12:00 96.7 66 19 123/56 (78) 96 10/17/17 09:15 Nasal Cannula 2.00 10/17/17 08:00 95.5 73 19 134/61 (85) 100 I/O 10/17/17 10/17/17 10/17/17 10/18/17 10/18/17 10/18/17 07:00 15:00 23:00 07:00 15:00 23:00 Intake Total 1240 ml 1200 ml 1480 ml Output Total 425 ml Balance 1240 ml 1200 ml 1055 ml Intake Oral 240 ml 1200 ml 480 ml IV Total 1000 ml 1000 ml Output Urine Total 425 ml # Voids 3 7 4 # Bowel Movements 1 1 Result Diagram: 3 0800 Other Results Laboratory Tests Test 10/17/17 08:00 Prothromb Time International Ratio 1.2 RATIO Prothrombin Time 11.7 SEC (9.8-11.6) Objective Remarks No drainage from lumbar incision;dressings still dry,not changed since yesterday Neurologically no focal deficit. Assessment & Plan Assessment and Plan pod #13 s/p lumbar spine I&D with MRSA infection: intra-op findings did not show evidence of epidural abscess No headache;no wound drainage;clinically patient looks good continue antibiotics per I.D. ; vanco was stopped due to acute renal failure and daptomycin was started Bedrest with no higher than 30 degrees of elevation of bed Coumadin for DVT prop per sliding scale. Continue current treatment Orthopedically stable Dylan Martin MD Oct 18, 2017 07:35
[2017-10-18 08:00] VITALS: BP 144/87; PULSE 82; RESP 16; TEMP 97.5; O2SAT 98
[2017-10-18 09:42] LABS: HEMATOCRIT 24.1 % (35.0-46.0); HEMOGLOBIN 7.7 GM/DL (11.6-15.3); MEAN CELL VOLUME 89.8 FL (80.0-100.0); MEAN CORPUSCULAR HEMOGLOBIN 28.5 PG (27.0-34.0); MEAN CORPUSCULAR HGB CONC 31.8 % (32.0-36.0); MEAN PLATELET VOLUME 7.9 FL (7.0-11.0); PLATELET COUNT 440 TH/MM3 (150-450); RED BLOOD COUNT 2.68 MIL/MM3 (4.00-5.30); RED CELL DISTRIBUTION WIDTH 17.1 % (11.6-17.2)
[2017-10-18] MEDS: MULTIVITAMINS/MINERALS THERAPEUTIC TAB PO SCH ×2 (09:48→21:38)
[2017-10-18] MEDS: PANTOPRAZOLE SOD 20 MG DELAYED RELEASE TAB PO SCH (09:48)
[2017-10-18] MEDS: DAPTOmycin INJ 600 MG in SODIUM CHLORIDE 0.9% INJ 100 ML IV SCH (09:48)
[2017-10-18] MEDS: DOCUSATE SODIUM 100 MG CAP PO SCH ×2 (09:48→21:39)
[2017-10-18] MEDS: GABAPENTIN 100 MG CAP PO SCH ×3 (09:48→18:27)
[2017-10-18] MEDS: WARFARIN SOD 5 MG TAB PO SCH (09:49)
[2017-10-18] MEDS: FERROUS SULFATE 325 MG (65 MG ELEMENTAL IRON) TAB PO SCH ×2 (09:50→21:39)
[2017-10-18 09:52] LABS: INTERNATIONAL NORMALIZED RATIO 1.1 RATIO; PROTHROMBIN TIME - PATIENT 11.2 SEC (9.8-11.6)
[2017-10-18 10:07] LABS: ALBUMIN 2.6 GM/DL (3.4-5.0); BICARBONATE 28.9 MEQ/L (21.0-32.0); CALCIUM 8.5 MG/DL (8.5-10.1); CREATININE 2.69 MG/DL (0.50-1.00)
[2017-10-18 10:08] LABS: PHOSPHORUS 5.1 MG/DL (2.5-4.9)
--- NOTE | 2017-10-18 11:02 | HHI.PR ---
Subjective Remarks Follow-up lumbar epidural abscess 10/09/17-patient seen and examined, spiking fevers, denies any significant back pain. No nausea and vomiting with by mouth intake 10/10/17-patient seen and examined, continue to complain of severe back pain. 10/11/17-patient seen and examined, still continued to complain of headaches and reports some improvement of back pain 10/12/17-patient seen and examined, reports some improving of FOLEY, and complains of now severe BLE pain 10/13/17-patient seen and examined, complains of restroom to spasm. Spiking fevers 10/14/17-patient seen and examined, currently afebrile. States she was out of bed yesterday for 4 hours sitting in a chair 10/15/17-patient seen and examined, no complaint this AM. Afebrile and denies any FOLEY 10/16/17-patient seen and examined, No acute event overnight. Afebrile. Denies any significant back and legs pain 10/17/17-patient seen and examined,+back pain, +constipation 10/18/17-patient seen and examined, less legs spasm, FOLEY improved Objective Vitals Vital Signs Date Time Temp Pulse Resp B/P (MAP) Pulse Ox O2 Delivery O2 Flow Rate FiO2 10/18/17 08:00 97.5 82 16 144/87 (106) 98 10/18/17 04:00 96.7 71 20 133/64 (87) 99 10/18/17 00:00 99.4 75 16 114/58 (76) 95 10/17/17 22:08 Nasal Cannula 2.00 10/17/17 20:00 99.4 82 20 141/64 (89) 94 10/17/17 16:00 97.3 68 19 119/60 (79) 95 10/17/17 12:00 96.7 66 19 123/56 (78) 96 I/O 10/17/17 10/17/17 10/17/17 10/18/17 10/18/17 10/18/17 07:00 15:00 23:00 07:00 15:00 23:00 Intake Total 1240 ml 1200 ml 1480 ml Output Total 425 ml Balance 1240 ml 1200 ml 1055 ml Intake Oral 240 ml 1200 ml 480 ml IV Total 1000 ml 1000 ml Output Urine Total 425 ml # Voids 3 7 4 # Bowel Movements 1 1 Result Diagram: 10/18/1783010/18/17830 Objective Remarks GENERAL: NAD SKIN: Warm and dry. HEAD: Normocephalic. EYES: No scleral icterus. No injection or drainage. NECK: Supple, trachea midline. No JVD or lymphadenopathy. CARDIOVASCULAR: Regular rate and rhythm without murmurs, gallops, or rubs. RESPIRATORY: Breath sounds equal bilaterally. No accessory muscle use. GASTROINTESTINAL: Abdomen soft, non-tender, nondistended. MUSCULOSKELETAL: No cyanosis, or edema. BACK: Nontender without obvious deformity. No CVA tenderness. Procedures s/p I&D lumbar epidural abscess A/P Problem List: (1) Abscess in epidural space of lumbar spine ICD Code: G06.1 - Intraspinal abscess and granuloma (2) Gram-positive bacteremia ICD Code: R78.81 - Bacteremia Assessment and Plan 61-year-old female with Abscess in the epidural space of lumbar spine Currently spiking fevers-resolved s/p irrigation and debridement and redo laminectomy L4-5 by orthopedic surgery Wound positive for MRSA Currently on Cubicin per ID Pain management accordingly Bedrest per Ortho Headache-Improved Acute renal failure Nephrology input appreciated Renal indices improving Gram-positive bacteremia Currently on Daptomycin Repeat blood culture NTD Normochromic normocytic anemia Transfused 1 unit packed red blood cell Check Hemoccult and continue to Monitor H&H continue ferrous sulfate for iron deficiency anemia Hypoalbuminemia The decrease of serum concentrations of Albumin 2/2 acute episode of infection However will check Prealbumin to assess nutritional status Dyslipidemia Continue statin Hypertension Continue Lisinopril 5mg daily -DVT prophylaxis:on Coumadin- per ortho. Jonh Jeff MD Oct 18, 2017 11:02
[2017-10-18] MEDS: MORPHINE SULFATE 4 MG/ML INJ IV PUSH PRN ×3 (11:28→23:22)
[2017-10-18 12:00] VITALS: BP 146/89; PULSE 83; RESP 19; TEMP 96.8; O2SAT 98
[2017-10-18 16:00] VITALS: BP 149/70; PULSE 70; RESP 18; TEMP 96.9; O2SAT 95
[2017-10-18] MEDS ORDERED: WARFARIN SOD 5 MG TAB PO ONE (16:00)
--- NOTE | 2017-10-18 19:00 | HHI.NPPN ---
Subjective History of Present Illness This patient is a 62-year-old female who apparently had no previous history of chronic kidney disease. She does have a history of hypertension and during a recent previous admission underwent lumbar surgery for spinal stenosis. She had a decompressive hemilaminectomy laminectomy L4-L5 and discharged on September 26, 2017. Subsequently readmitted on October 01, 2017 with drainage from the wounds and back pain. Subsequently diagnosed as having an epidural abscess and underwent surgery for same. Has been receiving vancomycin which was subsequently discontinued October 15, 2017 as it was noted that his serum creatinine level had risen dramatically. On questioning the patient she also is indicating some difficulty voiding as well as constipation. Interval History Pt feeling OK. Some SOB today Noted drop in Hgb. FOBT pending. (Yumiko Willson) Review of Systems General Constitutional: Fatigue (Yumiko Willson) Musculoskeletal MS: Pain/Stiffness (Yumiko Willson) Objective Data Data 10/18/17 10/19/17 19:00 07:00 Intake Total 760 ml Output Total 1750 ml Balance -990 ml Intake Oral 660 ml IV Total 100 ml Output Urine Total 1750 ml # Voids 3 # Bowel Movements 1 Vital Signs Date Time Temp Pulse Resp B/P (MAP) Pulse Ox O2 Delivery O2 Flow Rate FiO2 10/18/17 16:00 96.9 70 18 149/70 (96) 95 10/18/17 12:00 96.8 83 19 146/89 (108) 98 10/18/17 08:00 97.5 82 16 144/87 (106) 98 10/18/17 04:00 96.7 71 20 133/64 (87) 99 10/18/17 00:00 99.4 75 16 114/58 (76) 95 10/17/17 22:08 Nasal Cannula 2.00 10/17/17 20:00 99.4 82 20 141/64 (89) 94 (Yumiko Willson) -: 10/18/17 0831 10/18/17 0831 Imaging Last Impressions Venous Access Device Injection 10/15/17 0000 Signed Impressions: Service Date/Time: Sunday, October 15, 2017 16:44 - CONCLUSION: Port in good position. Fibrin sheath will prevent blood aspiration. Consideration could be made to fibrin sheath stripping to restore this function of the port. Dipesh Auguste Jr., MD Renal Ultrasound 10/15/17 0000 Signed Impressions: Service Date/Time: Sunday, October 15, 2017 19:52 - CONCLUSION: Image quality is less than optimal secondary to patient body habitus. However, no hydronephrosis or concerning abnormality is identified. Cole Boston MD Lumbar Spine MRI 10/15/17 0000 Signed Impressions: Service Date/Time: Sunday, October 15, 2017 20:44 - CONCLUSION: 1. There is a fluid collection extending from the laminectomy defect at the L4-L5 level, through the posterior paraspinal musculature, and into the subcutaneous fat of the midline and right back. The subcutaneous portion of the collection measures approximately 11.8 x 3.3 cm and extends almost to the skin surface. 2. The spinal canal is not well-visualized at L4-L5. There is likely spinal canal stenosis. 3. There is a CSF density collection in the posterior spinal canal extending from approximately T12-L2. The appearance is suspicious for an arachnoid cyst. It displaces the nerve roots in the thecal sac. Cole Boston MD Chest X-Ray 10/08/17 0000 Signed Impressions: Service Date/Time: Sunday, October 08, 2017 05:16 - CONCLUSION: 1. Low lung volumes with mild patchy bilateral lower lung zone airspace disease, likely atelectasis. Foreign Blancas MD Medication Review Current Medications Medications (Trade) Dose Ordered Sig/Kylah Route Start Time Stop Time Status Last Admin Dextrose/Lactated Ringer's 1,000 ml @ 100 mls/hr Q10H IV 10/05/17 12:00 10/18/17 13:47 (NS Flush) 5 ml UNSCH PRN IV FLUSH 10/05/17 14:00 10/13/17 06:20 (Heparin Central Flush) 250 units UNSCH PRN IV FLUSH 10/05/17 14:00 10/13/17 20:31 (Heparin Central Flush) 500 units UNSCH IV FLUSH 10/05/17 14:00 (Morphine Inj) 5 mg Q3H PRN IV PUSH 10/05/17 17:00 10/18/17 18:28 ([place] 7.5-325 Mg) 1 tab Q4H PRN PO 10/05/17 17:00 (Theragran M Tab) 1 tab BID PO 10/06/17 09:00 12/05/17 08:59 10/18/17 09:48 (Zofran Inj) 4 mg Q6H PRN IV PUSH 10/05/17 17:00 (Mag-Al Plus Susp Liq) 30 ml Q6H PRN PO 10/05/17 17:00 (Ambien) 5 mg HS PRN PO 10/05/17 21:00 (Dulcolax Supp) 10 mg DAILY PRN RECTAL 10/05/17 17:15 (Narcan Inj) 0.4 mg UNSCH PRN IV PUSH 10/05/17 17:00 (Pravachol) 40 mg DAILY PO 10/06/17 09:00 Future Hold 10/15/17 08:34 (Protonix) 20 mg DAILY PO 10/06/17 09:00 10/18/17 09:48 ([place] 7.5-325 Mg) 2 tab Q4HR PRN PO 10/06/17 09:00 10/18/17 15:56 (Colace) 100 mg BID PO 10/06/17 09:30 10/18/17 09:48 (Tylenol) 650 mg Q4H PRN PO 10/08/17 02:45 10/13/17 11:31 (Coumadin) GIVE 5MG IF INR < 1.2 G... DAILY@1000 PO 10/09/17 10:00 10/18/17 09:49 (Tylenol) 650 mg Q4H PRN PO 10/09/17 13:15 (Benadryl) 25 mg Q4H PRN PO 10/09/17 13:15 (Prinivil) 5 mg DAILY PO 10/10/17 09:00 Future Hold 10/15/17 08:34 (Ferrous Sulfate) 325 mg BID PO 10/10/17 21:00 10/18/17 09:50 (Milk Of Magnesia Liq) 30 ml Q6H PRN PO 10/14/17 09:45 10/15/17 04:41 Daptomycin 600 mg/ Sodium Chloride 100 ml @ 200 mls/hr Q48H IV 10/18/17 09:00 10/18/17 09:48 (Neurontin) 200 mg TID PO 10/17/17 13:00 10/18/17 18:27 (Yumiko Willson) Physical Exam General Appearance: No Acute Distress, Comfortable (Yumiko Willson) Neck Neck Exam: Neck Supple, Trachea Midline (Yumiko Willson) Pulmonary Resp Exam: Clear Bilaterally, Diminished Breath Sounds (Yumiko Willson) Cardiology CV Exam: Regular, Normal Sinus Rhythm (Yumiko Willson) Gastrointestinal/Abdomen GI Exam: Soft, Non-Tender (Yumiko Willson) Extremeties Extremities Exam: Trace Edema ( and periorbital) (Yumiko Willson) Neurologic Neuro Exam: Alert, Awake (Yumiko Willson) Psychiatric Psych Exam: Appropriate Responses (Yumiko Willson) Assessment/Plan Problem List: (1) Acute kidney insufficiency ICD Codes: N28.9 - Disorder of kidney and ureter, unspecified Status: Acute Plan: Acute renal insufficiency most likely related to vancomycin nephrotoxicity. Renal US shows no hydronephrosis, but is noted that her L kidney is read as atrophic at 7.5cm. Radiology does mention difficult study based on her body habitus. Uncertain significance. Decrease IVF to 50mL/hr Encouraged po intake. Hopefully renal functions will improve over the next few days once Vancomycin clears. We will continue to monitor. (2) Anemia ICD Codes: D64.9 - Anemia, unspecified Plan: FOBT pending Check Fe panel (Yumiko Willson) Plan The exam, history, and the medical decision-making described in the above note were completed with the assistance of the SELAM. I reviewed and agree with the findings presented. (Sandro Boyd MD) Yumiko Willson Oct 18, 2017 19:00 Sandro Boyd MD Oct 19, 2017 13:59
[2017-10-18 20:00] VITALS: BP 138/65; PULSE 75; RESP 20; TEMP 97.7; O2SAT 99
[2017-10-18] MEDS: MAGNESIUM HYDROXIDE SUSP 30 ML CUP PO PRN (21:39)
[2017-10-19] VITALS (7 sets, daily range): BP systolic 124–192; BP diastolic 70–90; PULSE 74–87; RESP 17–20; TEMP 96.6–98; O2SAT 94–100
[2017-10-19 02:24] LABS: IRON (FE) 24 MCG/DL (50-170); TOTAL IRON BINDING CAPACITY 266 MCG/DL (250-450)
[2017-10-19 02:26] LABS: FERRITIN 118 NG/ML (8-252)
[2017-10-19 05:10] LABS: HEMATOCRIT 22.5 % (35.0-46.0); HEMOGLOBIN 7.3 GM/DL (11.6-15.3); MEAN CELL VOLUME 89.2 FL (80.0-100.0); MEAN CORPUSCULAR HEMOGLOBIN 28.9 PG (27.0-34.0); MEAN CORPUSCULAR HGB CONC 32.5 % (32.0-36.0); MEAN PLATELET VOLUME 7.3 FL (7.0-11.0); PLATELET COUNT 443 TH/MM3 (150-450); RED BLOOD COUNT 2.52 MIL/MM3 (4.00-5.30); RED CELL DISTRIBUTION WIDTH 17.4 % (11.6-17.2); WHITE BLOOD COUNT 6.3 TH/MM3 (4.0-11.0)
[2017-10-19 05:18] LABS: INTERNATIONAL NORMALIZED RATIO 1.2 RATIO; PROTHROMBIN TIME - PATIENT 11.9 SEC (9.8-11.6)
[2017-10-19 05:38] LABS: ALBUMIN 2.5 GM/DL (3.4-5.0); BICARBONATE 32.9 MEQ/L (21.0-32.0); CALCIUM 8.9 MG/DL (8.5-10.1); CREATININE 2.6 MG/DL (0.50-1.00); PHOSPHORUS 5.1 MG/DL (2.5-4.9)
--- NOTE | 2017-10-19 07:11 | PD.ORT.PN ---
Subjective Subjective Remarks pod #14 s/p lumbar spine I&D with MRSA infection: intra-op findings did not show evidence of epidural abscess pt has no headaches, no back pain, no radiating leg pain pt has hx of chronic pain syndrome Objective Vitals Vital Signs Date Time Temp Pulse Resp B/P (MAP) Pulse Ox O2 Delivery O2 Flow Rate FiO2 10/19/17 04:00 97.7 87 20 149/70 (96) 96 10/19/17 00:00 98.0 83 20 173/75 (107) 97 10/18/17 21:49 Nasal Cannula 2.00 10/18/17 20:00 97.7 75 20 138/65 (89) 99 10/18/17 16:00 96.9 70 18 149/70 (96) 95 10/18/17 12:00 96.8 83 19 146/89 (108) 98 10/18/17 08:00 97.5 82 16 144/87 (106) 98 I/O 10/18/17 10/18/17 10/18/17 10/19/17 10/19/17 10/19/17 07:00 15:00 23:00 07:00 15:00 23:00 Intake Total 1480 ml 100 ml 1534 ml 1000 ml Output Total 425 ml 1750 ml 950 ml Balance 1055 ml 100 ml -216 ml 50 ml Intake Oral 480 ml 660 ml 0 ml IV Total 1000 ml 100 ml 874 ml 1000 ml Output Urine Total 425 ml 1750 ml 950 ml # Voids 4 3 5 # Bowel Movements 1 1 Result Diagram: 10/19/17 0450 10/19/17 0450 Other Results Laboratory Tests Test 10/18/17 08:31 10/19/17 04:50 Prothromb Time International Ratio 1.1 RATIO 1.2 RATIO Prothrombin Time 11.2 SEC (9.8-11.6) 11.9 SEC (9.8-11.6) Objective Remarks Seen and evaluated by Dr. Dylan Martin lumbar spine dressing dry and intact motor +5/5 to LE Neurologically no focal deficit. Assessment & Plan Assessment and Plan pod #14 s/p lumbar spine I&D with MRSA infection: intra-op findings did not show evidence of epidural abscess No headache;no wound drainage;clinically patient looks good continue antibiotics per I.D. ; vanco was stopped due to acute renal failure and cubicin was started, nephrology following Bedrest with no higher than 30 degrees of elevation of bed Coumadin for DVT prop per sliding scale--- recommend she receive coumadin 10 mg after her infusaport procedure Continue current treatment Dr. Martin spoke with Dr. Jeff yesterday regarding patient's malnutrition, albumin 2.6 with prealbumin 15; medical evaluation and management of anemia Patient scheduled today for replacement of Infusaport Shannan Palacios Oct 19, 2017 07:11
[2017-10-19] MEDS ORDERED: ACETAMINOPHEN 325 MG TAB PO PRN (07:15)
[2017-10-19] MEDS ORDERED: diphenhydrAMINE HCL 25 MG CAP PO PRN (07:15)
[2017-10-19] MEDS ORDERED: SODIUM CHLOR 0.9% 250 ML INJ 250 ML IV ONE (07:15)
--- NOTE | 2017-10-19 09:51 | HHI.PR ---
Subjective Remarks Follow-up lumbar epidural abscess 10/09/17-patient seen and examined, spiking fevers, denies any significant back pain. No nausea and vomiting with by mouth intake 10/10/17-patient seen and examined, continue to complain of severe back pain. 10/11/17-patient seen and examined, still continued to complain of headaches and reports some improvement of back pain 10/12/17-patient seen and examined, reports some improving of FOLEY, and complains of now severe BLE pain 10/13/17-patient seen and examined, complains of restroom to spasm. Spiking fevers 10/14/17-patient seen and examined, currently afebrile. States she was out of bed yesterday for 4 hours sitting in a chair 10/15/17-patient seen and examined, no complaint this AM. Afebrile and denies any FOLEY 10/16/17-patient seen and examined, No acute event overnight. Afebrile. Denies any significant back and legs pain 10/17/17-patient seen and examined,+back pain, +constipation 10/18/17-patient seen and examined, less legs spasm, FOLEY improved 10/19/17-patient seen and examined, hemoglobin 7.3 and patient currently denies any bleeding. Prealbumin 15. Complains of urinary incontinence. Case discussed with infectious disease specialist Objective Vitals Vital Signs Date Time Temp Pulse Resp B/P (MAP) Pulse Ox O2 Delivery O2 Flow Rate FiO2 10/19/17 08:00 96.9 84 20 188/83 (118) 95 10/19/17 04:00 97.7 87 20 149/70 (96) 96 10/19/17 00:00 98.0 83 20 173/75 (107) 97 10/18/17 21:49 Nasal Cannula 2.00 10/18/17 20:00 97.7 75 20 138/65 (89) 99 10/18/17 16:00 96.9 70 18 149/70 (96) 95 10/18/17 12:00 96.8 83 19 146/89 (108) 98 I/O 10/18/17 10/18/17 10/18/17 10/19/17 10/19/17 10/19/17 07:00 15:00 23:00 07:00 15:00 23:00 Intake Total 1480 ml 100 ml 1534 ml 1000 ml Output Total 425 ml 1750 ml 950 ml Balance 1055 ml 100 ml -216 ml 50 ml Intake Oral 480 ml 660 ml 0 ml IV Total 1000 ml 100 ml 874 ml 1000 ml Output Urine Total 425 ml 1750 ml 950 ml # Voids 4 3 5 # Bowel Movements 1 1 Result Diagram: 10/19/17 04510/19/17 0450 Objective Remarks GENERAL: NAD SKIN: Warm and dry. HEAD: Normocephalic. EYES: No scleral icterus. No injection or drainage. NECK: Supple, trachea midline. No JVD or lymphadenopathy. CARDIOVASCULAR: Regular rate and rhythm without murmurs, gallops, or rubs. RESPIRATORY: Breath sounds equal bilaterally. No accessory muscle use. GASTROINTESTINAL: Abdomen soft, non-tender, nondistended. MUSCULOSKELETAL: No cyanosis, or edema. BACK: Nontender without obvious deformity. No CVA tenderness. Procedures s/p I&D lumbar epidural abscess A/P Problem List: (1) Abscess in epidural space of lumbar spine ICD Code: G06.1 - Intraspinal abscess and granuloma (2) Gram-positive bacteremia ICD Code: R78.81 - Bacteremia Assessment and Plan 61-year-old female with Abscess in the epidural space of lumbar spine Currently spiking fevers-resolved s/p irrigation and debridement and redo laminectomy L4-5 by orthopedic surgery Wound positive for MRSA Currently on Cubicin per ID Pain management accordingly Bedrest per Ortho Headache-Improved Acute renal failure Nephrology input appreciated Renal indices improving Gram-positive bacteremia Currently on Daptomycin Repeat blood culture NTD Normochromic normocytic anemia Previously transfused 1 unit PRBC, will transfuse 1 unit today 10/19/17 Check Hemoccult and continue to Monitor H&H continue ferrous sulfate for iron deficiency anemia Hypoalbuminemia The decrease of serum concentrations of Albumin 2/2 acute episode of infection Prealbumin 15 Ensure added to Diet Treat above infection with IV antibiotic per ID Urinary incontinence Check UA and treat accordingly Dyslipidemia hold statin as patient currently on Cubicin Hypertension Continue Lisinopril 5mg daily -DVT prophylaxis:on Coumadin- per ortho. Jonh Jeff MD Oct 19, 2017 09:51
[2017-10-19] MEDS: MORPHINE SULFATE 4 MG/ML INJ IV PUSH PRN (10:10)
[2017-10-19] MEDS: SODIUM CHLORIDE 0.9% FLUSH 10 ML FLUSH IV FLUSH PRN (10:10)
--- NOTE | 2017-10-19 10:33 | HHI.IDPN ---
Note Infectious Disease Note Patient states that she feels okay. Reports that she had to wake up very frequently through the night because of the urine production. Has pain in the back 7/10 scale. Going down for [id number] evaluation by radiology. Decreased drainage from back incision area. Afebrile. Denies chills. Creatinine remained elevated. 61-year-old black female who recently underwent lumbar spine surgery. The patient was treated for lumbar spine stenosis. She underwent L4-L5 bilateral decompressive hemilaminectomy along with decompression of nerve root and left side L4-L5 repair of dural leak. The patient was discharged from the hospital on September 26. She was taken to surgery and underwent incision and drainage of an lumbar abscess. PAST MEDICAL HISTORY 1. Dyslipidemia, 2. Status post laminectomy for spinal stenosis 3. Appendectomy, 4. Gastric bypass 5. Knee replacement 6. Gastroesophageal reflux disease, 7. Hysterectomy. ALLERGIES NO KNOWN DRUG ALLERGIES. ANTIBIOTIC Current Medications Medications (Trade) Dose Ordered Sig/Kylah Route PRN Reason Start Time Stop Time Status Last Admin Dose Admin Dextrose/Lactated Ringer's 1,000 ml @ 50 mls/hr Q20H IV 10/05/17 12:00 10/18/17 23:22 Sodium Chloride (NS Flush) 5 ml UNSCH PRN IV FLUSH SEE PROTOCOL TABLE 10/05/17 14:00 10/19/17 10:10 Heparin Sodium (Porcine) (Heparin Central Flush) 250 units UNSCH PRN IV FLUSH SEE PROTOCOL TABLE 10/05/17 14:00 10/13/17 20:31 Heparin Sodium (Porcine) (Heparin Central Flush) 500 units UNSCH IV FLUSH 10/05/17 14:00 Morphine Sulfate (Morphine Inj) 5 mg Q3H PRN IV PUSH BREAKTHROUGH PAIN 10/05/17 17:00 10/19/17 10:10 Acetaminophen/ Hydrocodone Bitart ([place] 7.5-325 Mg) 1 tab Q4H PRN PO PAIN SCALE 1 TO 5 10/05/17 17:00 Multivitamins/ Minerals Therapeutic (Theragran M Tab) 1 tab BID PO 10/06/17 09:00 12/05/17 08:59 10/18/17 21:38 Ondansetron HCl (Zofran Inj) 4 mg Q6H PRN IV PUSH NAUSEA OR VOMITING 10/05/17 17:00 Al Hydrox/Mg Hydrox/Simethicone (Mag-Al Plus Susp Liq) 30 ml Q6H PRN PO INDIGESTION 10/05/17 17:00 Zolpidem Tartrate (Ambien) 5 mg HS PRN PO SLEEP 10/05/17 21:00 Bisacodyl (Dulcolax Supp) 10 mg DAILY PRN RECTAL CONSTIPATION 10/05/17 17:15 Naloxone HCl (Narcan Inj) 0.4 mg UNSCH PRN IV PUSH RESPIRATORY RATE LESS THAN 10 10/05/17 17:00 Pravastatin Sodium (Pravachol) 40 mg DAILY PO 10/06/17 09:00 Future Hold 10/15/17 08:34 Pantoprazole Sodium (Protonix) 20 mg DAILY PO 10/06/17 09:00 10/18/17 09:48 Acetaminophen/ Hydrocodone Bitart ([place] 7.5-325 Mg) 2 tab Q4HR PRN PO PAIN SCALE 6 TO 10 10/06/17 09:00 10/18/17 21:41 Docusate Sodium (Colace) 100 mg BID PO 10/06/17 09:30 10/18/17 21:39 Acetaminophen (Tylenol) 650 mg Q4H PRN PO fever > 101 10/08/17 02:45 10/13/17 11:31 Lisinopril (Prinivil) 5 mg DAILY PO 10/10/17 09:00 Future Hold 10/15/17 08:34 Ferrous Sulfate (Ferrous Sulfate) 325 mg BID PO 10/10/17 21:00 10/18/17 21:39 Magnesium Hydroxide (Milk Of Magnesia Liq) 30 ml Q6H PRN PO CONSTIPATION 10/14/17 09:45 10/18/17 21:39 Daptomycin 600 mg/ Sodium Chloride 100 ml @ 200 mls/hr Q48H IV 10/18/17 09:00 10/18/17 09:48 Gabapentin (Neurontin) 200 mg TID PO 10/17/17 13:00 10/18/17 18:27 Sodium Chloride 250 ml @ 15 mls/hr ONCE ONCE IV 10/19/17 07:15 10/19/17 23:54 Acetaminophen (Tylenol) 650 mg Q4H PRN PO SEE LABEL COMMENTS 10/19/17 07:15 10/19/17 23:59 Diphenhydramine HCl (Benadryl) 25 mg Q4H PRN PO SEE LABEL COMMENTS 10/19/17 07:15 10/19/17 23:59 Warfarin Sodium (Coumadin) GIVE 5MG IF INR < 1.2 G... DAILY@1000 PO 10/20/17 10:00 Warfarin Sodium (Coumadin) 10 mg ONCE ONCE PO 10/19/17 16:00 10/19/17 16:01 OBJECTIVE: Vital Signs Date Time Temp Pulse Resp B/P (MAP) Pulse Ox O2 Delivery O2 Flow Rate FiO2 10/19/17 08:00 96.9 84 20 188/83 (118) 95 10/19/17 04:00 97.7 87 20 149/70 (96) 96 10/19/17 00:00 98.0 83 20 173/75 (107) 97 10/18/17 21:49 Nasal Cannula 2.00 10/18/17 20:00 97.7 75 20 138/65 (89) 99 10/18/17 16:00 96.9 70 18 149/70 (96) 95 10/18/17 12:00 96.8 83 19 146/89 (108) 98 Laboratory Tests Test 10/18/17 08:31 10/19/17 04:50 White Blood Count 7.0 TH/MM3 6.3 TH/MM3 Red Blood Count 2.68 MIL/MM3 2.52 MIL/MM3 Hemoglobin 7.7 GM/DL 7.3 GM/DL Hematocrit 24.1 % 22.5 % Mean Corpuscular Volume 89.8 FL 89.2 FL Mean Corpuscular Hemoglobin 28.5 PG 28.9 PG Mean Corpuscular Hemoglobin Concent 31.8 % 32.5 % Red Cell Distribution Width 17.1 % 17.4 % Platelet Count 440 TH/MM3 443 TH/MM3 Mean Platelet Volume 7.9 FL 7.3 FL Laboratory Tests Test 10/18/17 08:31 10/19/17 04:50 Blood Urea Nitrogen 29 MG/DL 27 MG/DL Creatinine 2.69 MG/DL 2.60 MG/DL Random Glucose 95 MG/DL 101 MG/DL Albumin 2.6 GM/DL 2.5 GM/DL Calcium Level 8.5 MG/DL 8.9 MG/DL Phosphorus Level 5.1 MG/DL 5.1 MG/DL Sodium Level 141 MEQ/L 144 MEQ/L Potassium Level 4.5 MEQ/L 4.5 MEQ/L Chloride Level 104 MEQ/L 106 MEQ/L Carbon Dioxide Level 28.9 MEQ/L 32.9 MEQ/L Anion Gap 8 MEQ/L 5 MEQ/L Estimat Glomerular Filtration Rate 22 ML/MIN 23 ML/MIN Iron Level 24 MCG/DL Total Iron Binding Capacity 266 MCG/DL Percent Iron Saturation 9.0 % Ferritin 118 NG/ML Prealbumin 15 MG/DL IMAGING: Venous Access Device Injection 10/15/17 Signed Impressions: Service Date/Time: Sunday, October 15, 2017 16:44 - CONCLUSION: Port in good position. Fibrin sheath will prevent blood aspiration. Consideration could be made to fibrin sheath stripping to restore this function of the port. Dipesh Auguste Jr., MD Renal Ultrasound 10/15/17 Signed Impressions: Service Date/Time: Sunday, October 15, 2017 19:52 - CONCLUSION: Image quality is less than optimal secondary to patient body habitus. However, no hydronephrosis or concerning abnormality is identified. Cole Boston MD Lumbar Spine MRI 10/15/17 Signed Impressions: Service Date/Time: Sunday, October 15, 2017 20:44 - CONCLUSION: 1. There is a fluid collection extending from the laminectomy defect at the L4-L5 level, through the posterior paraspinal musculature, and into the subcutaneous fat of the midline and right back. The subcutaneous portion of the collection measures approximately 11.8 x 3.3 cm and extends almost to the skin surface. 2. The spinal canal is not well-visualized at L4-L5. There is likely spinal canal stenosis. 3. There is a CSF density collection in the posterior spinal canal extending from approximately T12-L2. The appearance is suspicious for an arachnoid cyst. It displaces the nerve roots in the thecal sac. Cole Boston MD Chest X-Ray 10/08/17 0000 Signed Impressions: Service Date/Time: Sunday, October 08, 2017 05:16 - CONCLUSION: 1. Low lung volumes with mild patchy bilateral lower lung zone airspace disease, likely atelectasis. Foreign Blancas MD PHYSICAL EXAMINATION GENERAL: Awake and alert. No acute distress. HEENT: Extraocular movements grossly intact. No icterus. Oropharynx moist mucosa without lesions. NECK: Supple without adenopathy. LUNGS: Clear breath sounds. HEART: Regular S1, S2 without murmurs, rubs or gallops. ABDOMEN: Bowel sounds present, soft, no tenderness. BACK: Little drainage coming from the back incision. EXTREMITIES: No clubbing or cyanosis or edema. SKIN: No rash. NEUROLOGIC: No gross focal findings. PSYCHIATRIC: Calm and cooperative. IMPRESSION 1. Lumbar abscess. MRSA. Post drainage. Patient continues to have drainage from the back wound. Drainage has decreased. 2. Fever. Improved. 3. Postoperative wound infection of the lumbar spine. 4. Post laminectomy and repair of epidural tear. 5. Acute renal failure. New problem - Probably related to vancomycin. Nephrology following. Renal function appears to be slowly improving. RECOMMENDATIONS 1. Continue daptomycin. Continue to hold Pravachol while on daptomycin. Elevated CPK can occur with the daptomycin and patient at increased risk while On statin. Discussed with Dr. Jeff about starting a different Cholesterol lowering drug. 2. Monitor the temperature. 3. Monitor the back drainage 4. Monitor clinical status. Patient appears clinically improved. When improvement in the renal function occurs, plans can be made for continuing treatment outpatient. However the patient will require intravenous antibiotics with Daptomycin because of the deteriorating Renal function while on vancomycin. Treatment with IV antibiotic for 6 weeks from the last positive wound culture. Shukri Naqvi MD Oct 19, 2017 10:33
--- NOTE | 2017-10-19 11:25 | PD.RAD ---
Post Procedure Progress Note Pre Procedure Diagnosis: (1) Central line complication Post Procedure Diagnosis: (1) Central line complication Procedure Date: Oct 19, 2017 Supervising Radiologist: Dipesh Auguste JR Proceduralist/Assist: Ryder Barrios, RT(R), Lit Jones RT(R) Anesthesia: Local Plan of Activity Patient to Unit: Nursing Unit Patient Condition: Good See PACS Report for procedural detail/treatment Central Venous Access Device Procedure 1 Right Internal Jugular Infusaport Evaluation single lumen Findings: Fibrin sheath prevents blood return from port a cath. Right CFV accessed. Snare utilized to strip away fibrin sheath. Port now has brisk blood return. OK to use port. Jr. Molina,Dipesh Rivera MD Oct 19, 2017 11:25
[2017-10-19] MEDS: DOCUSATE SODIUM 100 MG CAP PO SCH ×2 (12:15→20:05)
[2017-10-19] MEDS: FERROUS SULFATE 325 MG (65 MG ELEMENTAL IRON) TAB PO SCH ×2 (12:15→20:05)
[2017-10-19] MEDS: PANTOPRAZOLE SOD 20 MG DELAYED RELEASE TAB PO SCH (12:15)
[2017-10-19] MEDS: MULTIVITAMINS/MINERALS THERAPEUTIC TAB PO SCH ×2 (12:15→20:05)
[2017-10-19] MEDS: GABAPENTIN 100 MG CAP PO SCH ×3 (12:16→16:21)
[2017-10-19] MEDS: ACETAMINOPHEN/HYDROcodone 325 MG/7.5 MG TAB PO PRN ×2 (12:16→20:05)
[2017-10-19 13:55] LABS: BILIRUBIN, URINE NEG (NEG); BLOOD, URINE NEG (NEG); GLUCOSE,URINE 1000 mg/dL (NEG); KETONE, URINE NEG (NEG); NITRITE,URINE NEG (NEG); PH, URINE 7.5 (5.0-8.5); SQUAMOUS EPITHELIAL CELL URINE <1 /hpf (0-5); URINE COLOR LIGHT-YELLOW (YELLW/STRAW); URINE LEUKOCYTE ESTERASE NEG (NEG)
--- NOTE | 2017-10-19 14:51 | RADRPT ---
EXAM DATE/TIME: 10/19/2017 10:40 [facility] COMPARISON: No previous studies available for comparison. INDICATIONS : Patient presents with non functioning port in need of fibrin sheath stripping for further evaluation. MEDICAL HISTORY : Dyslipidemia Gastroesophageal reflux disease HTN PAD Heart failure SURGICAL HISTORY : Appendectomy Gastric bypass Knee replacement Hysterectomy Status post laminectomy for spinal stenosis ENCOUNTER: Subsequent ACUITY: 2 weeks PAIN SCORE: 0/10 LOCATION: N/A FLUORO TIME: 3.2 minutes IMAGE SERIES: 0 ACCESS SITE: Right Femoral artery minutes TECH NOTE: Procedure was completed without the aide of conscious sedation or contrast agent.BECKA MCDERMOTT V. MR #:[id number] :57 Exam Dt/Desc: October 19, 2017REMOVE INTRACATH OBST MATERIAL PROCEDURE : Fibrin sheath stripping under fluoroscopic guidance The patient was placed in the supine position on the fluoroscopy table. The patient was fully prepped and draped. Under direct sonographic guidance and utilizing 1% lidocaine for local anesthetic the [facility] common femoral vein was accessed with a 21 gauge needle. A 6 [place] sheath was placed. A 25 mm lo op snare was then passed over wire into the right atrium. The catheter of the patient's right-sided P ort-A-Cath was snared and gently stripped to remove the fibrin sheath. Aspiration of the port now yash ws a brisk blood return. CONCLUSION: Fibrin sheath stripping of the patient's port. Dipesh Auguste Jr., MD on October 19, 2017 at 14:45 Board Certified Radiologist. This report was verified electronically.
[2017-10-19] MEDS ORDERED: WARFARIN SOD 10 MG TAB PO ONE (16:00)
[2017-10-19] MEDS: DEXTROSE 5%-LACTATED RING INJ 1,000 ML IV SCH (20:08)
[2017-10-20] VITALS: BP 144/66; PULSE 79; RESP 18; TEMP 97.9; O2SAT 96
[2017-10-20] MEDS: ACETAMINOPHEN/HYDROcodone 325 MG/7.5 MG TAB PO PRN ×4 (01:26→17:42)
[2017-10-20 08:00] VITALS: BP 161/70; PULSE 76; RESP 17; TEMP 97.8; O2SAT 98
--- NOTE | 2017-10-20 08:09 | HHI.PR ---
Subjective Remarks In bed appears in nad. Denies pain in her back. Says she is urinating more than usual. Urine in clear. No fever or chills. No n/v/d/c. Discussed with the nurse not able to draw blood from the port. Patient is refusing periph lab draw She did receive 1 U PRBC yesterday. Patient denies any chest pain or sob. No palpitations. Had a normal BM 2 days ago. Objective Vitals Vital Signs Date Time Temp Pulse Resp B/P (MAP) Pulse Ox O2 Delivery O2 Flow Rate FiO2 10/20/17 00:00 97.9 79 18 144/66 (92) 96 10/19/17 20:12 Nasal Cannula 2.00 10/19/17 20:00 96.9 81 18 146/70 (95) 94 10/19/17 19:39 96.6 85 17 124/73 96 10/19/17 16:00 97.7 74 19 137/78 (97) 99 10/19/17 12:05 97.4 85 17 192/90 (124) 100 10/19/17 10:15 20 I/O 10/19/17 10/19/17 10/19/17 10/20/17 10/20/17 10/20/17 06:59 14:59 22:59 06:59 14:59 22:59 Intake Total 1000 ml 535 ml 780 ml Output Total 950 ml 850 ml 1800 ml Balance 50 ml -315 ml -1020 ml Intake Oral 0 ml 200 ml 780 ml IV Total 1000 ml Packed Cells 330 ml Blood Product IV Normal Saline Flush 5 ml Output Urine Total 950 ml 850 ml 1800 ml # Voids 5 6 # Bowel Movements 1 0 0 Result Diagram: 10/19/17 0450 10/19/17 0450 Imaging Last Impressions Foreign Body Removal 10/19/17 0000 Signed Impressions: Service Date/Time: Thursday, October 19, 2017 10:40 - CONCLUSION: Fibrin sheath stripping of the patient's port. Dipesh Auguste Jr., MD Venous Access Device Injection 10/15/17 0000 Signed Impressions: Service Date/Time: Sunday, October 15, 2017 16:44 - CONCLUSION: Port in good position. Fibrin sheath will prevent blood aspiration. Consideration could be made to fibrin sheath stripping to restore this function of the port. Dipesh Auguste Jr., MD Renal Ultrasound 10/15/17 0000 Signed Impressions: Service Date/Time: Sunday, October 15, 2017 19:52 - CONCLUSION: Image quality is less than optimal secondary to patient body habitus. However, no hydronephrosis or concerning abnormality is identified. Cole Boston MD Lumbar Spine MRI 10/15/17 0000 Signed Impressions: Service Date/Time: Sunday, October 15, 2017 20:44 - CONCLUSION: 1. There is a fluid collection extending from the laminectomy defect at the L4-L5 level, through the posterior paraspinal musculature, and into the subcutaneous fat of the midline and right back. The subcutaneous portion of the collection measures approximately 11.8 x 3.3 cm and extends almost to the skin surface. 2. The spinal canal is not well-visualized at L4-L5. There is likely spinal canal stenosis. 3. There is a CSF density collection in the posterior spinal canal extending from approximately T12-L2. The appearance is suspicious for an arachnoid cyst. It displaces the nerve roots in the thecal sac. Cole Boston MD Chest X-Ray 10/08/17 0000 Signed Impressions: Service Date/Time: Sunday, October 08, 2017 05:16 - CONCLUSION: 1. Low lung volumes with mild patchy bilateral lower lung zone airspace disease, likely atelectasis. Foreign Blancas MD Objective Remarks GENERAL: NAD SKIN: Warm and dry. HEAD: Normocephalic. EYES: No scleral icterus. No injection or drainage. NECK: Supple, trachea midline. No JVD or lymphadenopathy. CARDIOVASCULAR: Regular rate and rhythm without murmurs, gallops, or rubs. RESPIRATORY: Breath sounds equal bilaterally. No accessory muscle use. GASTROINTESTINAL: Abdomen soft, non-tender, nondistended. MUSCULOSKELETAL: No cyanosis, or edema. BACK: Nontender without obvious deformity. No CVA tenderness. Procedures s/p I&D lumbar epidural abscess A/P Problem List: (1) Abscess in epidural space of lumbar spine ICD Code: G06.1 - Intraspinal abscess and granuloma (2) Gram-positive bacteremia ICD Code: R78.81 - Bacteremia Assessment and Plan 61-year-old female with Abscess in the epidural space of lumbar spine Spiking fevers-resolved s/p irrigation and debridement and redo laminectomy L4-5 by orthopedic surgery Wound positive for MRSA Currently on Cubicin per ID Pain management accordingly Bedrest per Ortho Headache-Resolved Acute renal failure Nephrology input appreciated Renal indices improving Gram-positive bacteremia Currently on Daptomycin Repeat blood culture NTD ID ff Normochromic normocytic anemia Previously transfused 1 unit PRBC, transfused 1 unit 10/19/17 Check Hemoccult and continue to Monitor H&H Continue ferrous sulfate for iron deficiency anemia Hypoalbuminemia The decrease of serum concentrations of Albumin 2/2 acute episode of infection Prealbumin 15 Ensure added to Diet Treat above infection with IV antibiotic per ID Urinary incontinence - Check UA and treat accordingly Dyslipidemia --hold statin as patient currently on Cubicin Hypertension - Continue Lisinopril 5mg daily DVT prophylaxis:on Coumadin- per ortho. Discussed with the patient, nurse PORT is not working per nurse. Reconsult IR on tomorr or Sunday for reeval patient is refusing labs at this time Kamla Bermudez MD Oct 20, 2017 08:09
--- NOTE | 2017-10-20 08:25 | PD.ORT.PN ---
Subjective Subjective Remarks Pain moderately controlled. No new headaches. No interval increase in back or leg pain. No numbness or tingling. Objective Vitals Vital Signs Date Time Temp Pulse Resp B/P (MAP) Pulse Ox O2 Delivery O2 Flow Rate FiO2 10/20/17 00:00 97.9 79 18 144/66 (92) 96 10/19/17 20:12 Nasal Cannula 2.00 10/19/17 20:00 96.9 81 18 146/70 (95) 94 10/19/17 19:39 96.6 85 17 124/73 96 10/19/17 16:00 97.7 74 19 137/78 (97) 99 10/19/17 12:05 97.4 85 17 192/90 (124) 100 10/19/17 10:15 20 I/O 10/19/17 10/19/17 10/19/17 10/20/17 10/20/17 10/20/17 07:00 15:00 23:00 07:00 15:00 23:00 Intake Total 1000 ml 535 ml 780 ml Output Total 950 ml 850 ml 1800 ml Balance 50 ml -315 ml -1020 ml Intake Oral 0 ml 200 ml 780 ml IV Total 1000 ml Packed Cells 330 ml Blood Product IV Normal Saline Flush 5 ml Output Urine Total 950 ml 850 ml 1800 ml # Voids 5 6 # Bowel Movements 1 0 0 Result Diagram: 10/19/17 0450 10/19/17 0450 Objective Remarks Seen and evaluated by Dr. Dylan Martin Lumbar dressing dry, no drainage, no erythema motor +5/5 to LE Neurologically no focal deficit. Assessment & Plan Ortho Post Op Day #: 15 Problem List: Assessment and Plan pod #15 s/p lumbar spine I&D with MRSA infection: intra-op findings did not show evidence of epidural abscess Attempted fixing infusaport by IR yesterday 10/19/17. RN states could not draw labs today, poss nonfunctional. No headache;no wound drainage; clinically patient looks good continue antibiotics per I.D. ; vanco was stopped due to acute renal failure and cubicin was started, nephrology following Bedrest with no higher than 30 degrees of elevation of bed Coumadin for DVT prop per sliding scale--- coumadin 10 mg today Continue current treatment Dietary consult, eval for assistance and management of malnutrition. Ensure plus 1 can TID. Will reinsert alfonso cath today. Pt is urinating on self in bed and there is concern about effect on lumbar spine wound. Medical team evaluating and treating anemia. Cally Velasco Oct 20, 2017 08:25
[2017-10-20] MEDS: DAPTOmycin INJ 600 MG in SODIUM CHLORIDE 0.9% INJ 100 ML IV SCH (09:55)
[2017-10-20] MEDS: DOCUSATE SODIUM 100 MG CAP PO SCH ×2 (09:55→21:32)
[2017-10-20] MEDS: MULTIVITAMINS/MINERALS THERAPEUTIC TAB PO SCH ×2 (09:55→21:32)
[2017-10-20] MEDS: GABAPENTIN 100 MG CAP PO SCH ×3 (09:56→17:41)
[2017-10-20] MEDS: PANTOPRAZOLE SOD 20 MG DELAYED RELEASE TAB PO SCH (09:56)
[2017-10-20] MEDS: FERROUS SULFATE 325 MG (65 MG ELEMENTAL IRON) TAB PO SCH ×2 (09:56→21:32)
[2017-10-20] MEDS: SODIUM CHLORIDE 0.9% FLUSH 10 ML FLUSH IV FLUSH PRN ×2 (09:58→11:06)
[2017-10-20] MEDS ORDERED: WARFARIN SOD 5 MG TAB PO SCH (10:00)
[2017-10-20] MEDS ORDERED: WARFARIN SOD 10 MG TAB PO ONE (10:00)
[2017-10-20] MEDS: MORPHINE SULFATE 4 MG/ML INJ IV PUSH PRN ×2 (11:06→19:02)
[2017-10-20 11:40] LABS: INTERNATIONAL NORMALIZED RATIO 1.5 RATIO; PROTHROMBIN TIME - PATIENT 15.2 SEC (9.8-11.6)
[2017-10-20 11:53] LABS: AUTOMATED NEUTROPHIL # 5.2 TH/MM3 (1.8-7.7); BASOPHIL % 0.6 % (0.0-2.0); EOSINOPHIL # 0.2 TH/MM3 (0-0.4); EOSINOPHIL % 2.4 % (0.0-4.0); HEMOGLOBIN 8.7 GM/DL (11.6-15.3); LYMPH % 11.9 % (9.0-44.0); LYMPHOCYTE # 0.8 TH/MM3 (1.0-4.8); MEAN CELL VOLUME 88.4 FL (80.0-100.0); MEAN CORPUSCULAR HEMOGLOBIN 28.7 PG (27.0-34.0); MEAN CORPUSCULAR HGB CONC 32.4 % (32.0-36.0); MEAN PLATELET VOLUME 7.4 FL (7.0-11.0); MONO % 8.2 % (0.0-8.0); MONOCYTE # 0.6 TH/MM3 (0-0.9); NEUT % 76.9 % (16.0-70.0); PLATELET COUNT 462 TH/MM3 (150-450); RED BLOOD COUNT 3.05 MIL/MM3 (4.00-5.30); RED CELL DISTRIBUTION WIDTH 16.2 % (11.6-17.2); WHITE BLOOD COUNT 6.7 TH/MM3 (4.0-11.0)
[2017-10-20 11:54] LABS: BICARBONATE 36.8 MEQ/L (21.0-32.0); CALCIUM 9.3 MG/DL (8.5-10.1); CREATININE 2.31 MG/DL (0.50-1.00)
[2017-10-20 12:00] VITALS: BP 147/68; PULSE 73; RESP 16; TEMP 97.6; O2SAT 99
--- NOTE | 2017-10-20 13:49 | HHI.NPPN ---
Subjective History of Present Illness This patient is a 62-year-old female who apparently had no previous history of chronic kidney disease. She does have a history of hypertension and during a recent previous admission underwent lumbar surgery for spinal stenosis. She had a decompressive hemilaminectomy laminectomy L4-L5 and discharged on September 26, 2017. Subsequently readmitted on October 01, 2017 with drainage from the wounds and back pain. Subsequently diagnosed as having an epidural abscess and underwent surgery for same. Has been receiving vancomycin which was subsequently discontinued October 15, 2017 as it was noted that his serum creatinine level had risen dramatically. On questioning the patient she also is indicating some difficulty voiding as well as constipation. Review of Systems General Constitutional: Fatigue Musculoskeletal MS: Pain/Stiffness Objective Data Data Vital Signs Date Time Temp Pulse Resp B/P (MAP) Pulse Ox O2 Delivery O2 Flow Rate FiO2 10/20/17 12:00 97.6 73 16 147/68 (94) 99 10/20/17 08:00 97.8 76 17 161/70 (100) 98 10/20/17 00:00 97.9 79 18 144/66 (92) 96 10/19/17 20:12 Nasal Cannula 2.00 10/19/17 20:00 96.9 81 18 146/70 (95) 94 10/19/17 19:39 96.6 85 17 124/73 96 10/19/17 16:00 97.7 74 19 137/78 (97) 99 -: 10/20/17 1107 10/20/17 1107 Physical Exam General Appearance: No Acute Distress, Comfortable Neck Neck Exam: Neck Supple, Trachea Midline Pulmonary Resp Exam: Clear Bilaterally, Diminished Breath Sounds Cardiology CV Exam: Regular, Normal Sinus Rhythm Gastrointestinal/Abdomen GI Exam: Soft, Non-Tender Extremeties Extremities Exam: No Edema Neurologic Neuro Exam: Alert, Awake Psychiatric Psych Exam: Appropriate Responses Assessment/Plan Discussed Condition With: Patient Problem List: (1) Acute kidney insufficiency ICD Codes: N28.9 - Disorder of kidney and ureter, unspecified Status: Acute Plan: Acute renal insufficiency most likely related to vancomycin nephrotoxicity. Renal US shows no hydronephrosis, but is noted that her L kidney is read as atrophic at 7.5cm. Radiology does mention difficult study based on her body habitus. Uncertain significance. Patient's creatinine level now showing some significant improvement. I will see patient intermittently at this point in time. Encouraged po intake. We will continue to monitor. (2) Anemia ICD Codes: D64.9 - Anemia, unspecified Sandro Boyd MD Oct 20, 2017 13:49
[2017-10-20 16:00] VITALS: BP 135/65; PULSE 68; RESP 16; TEMP 97.4; O2SAT 95
[2017-10-20 20:00] VITALS: BP 156/84; PULSE 77; RESP 18; TEMP 98.2; O2SAT 94
[2017-10-20] MEDS: DEXTROSE 5%-LACTATED RING INJ 1,000 ML IV SCH (21:31)
[2017-10-21 00:31] VITALS: BP 141/65; PULSE 69; RESP 18; TEMP 98.5; O2SAT 97
[2017-10-21] MEDS: ACETAMINOPHEN/HYDROcodone 325 MG/7.5 MG TAB PO PRN ×4 (04:40→23:04)
[2017-10-21] MEDS: MORPHINE SULFATE 4 MG/ML INJ IV PUSH PRN ×3 (06:47→19:51)
[2017-10-21 07:06] LABS: INTERNATIONAL NORMALIZED RATIO 1.8 RATIO; PROTHROMBIN TIME - PATIENT 18.2 SEC (9.8-11.6)
[2017-10-21 08:00] VITALS: BP 139/63; PULSE 66; RESP 16; TEMP 97.6; O2SAT 92
[2017-10-21] MEDS: MULTIVITAMINS/MINERALS THERAPEUTIC TAB PO SCH ×2 (09:19→19:50)
[2017-10-21] MEDS: PANTOPRAZOLE SOD 20 MG DELAYED RELEASE TAB PO SCH (09:19)
[2017-10-21] MEDS: FERROUS SULFATE 325 MG (65 MG ELEMENTAL IRON) TAB PO SCH ×2 (09:19→19:50)
[2017-10-21] MEDS: GABAPENTIN 100 MG CAP PO SCH ×3 (09:19→17:36)
[2017-10-21] MEDS: DOCUSATE SODIUM 100 MG CAP PO SCH ×2 (09:19→19:50)
--- NOTE | 2017-10-21 09:19 | PD.ORT.PN ---
Subjective Subjective Remarks POD# 16 Lumbar spine I&D MRSA No c/o of low back pain;no radiating leg pain;no headache Patient states she feels good Objective Vitals Vital Signs Date Time Temp Pulse Resp B/P (MAP) Pulse Ox O2 Delivery O2 Flow Rate FiO2 10/21/17 08:00 97.6 66 16 139/63 (88) 92 10/21/17 00:31 98.5 69 18 141/65 (90) 97 10/20/17 21:38 Nasal Cannula 2.00 10/20/17 20:00 98.2 77 18 156/84 (108) 94 10/20/17 16:00 97.4 68 16 135/65 (88) 95 10/20/17 12:00 97.6 73 16 147/68 (94) 99 10/20/17 09:30 98 Nasal Cannula 2.00 I/O 10/20/17 10/20/17 10/20/17 10/21/17 10/21/17 10/21/17 07:00 15:00 23:00 07:00 15:00 23:00 Intake Total 780 ml 100 ml 1900 ml Output Total 1800 ml 4500 ml Balance -1020 ml 100 ml -2600 ml Intake Oral 780 ml 900 ml IV Total 100 ml 1000 ml Output Urine Total 1800 ml 4500 ml # Bowel Movements 0 0 Result Diagram: 10/20/17 1107 10/20/17 1107 Other Results Laboratory Tests Test 10/20/17 10:07 10/21/17 06:05 Prothromb Time International Ratio 1.5 RATIO 1.8 RATIO Prothrombin Time 15.2 SEC (9.8-11.6) 18.2 SEC (9.8-11.6) Objective Remarks Alfonso cath in place Lumbar dressing dry, no drainage, no erythema motor +5/5 to LE Neurologically no focal deficit. Assessment & Plan Assessment and Plan pod #16 s/p lumbar spine I&D with MRSA infection: intra-op findings did not show evidence of epidural abscess Attempted fixing infusaport by IR on 10/19/17. RN states could not draw labs yesterday and today, probable nonfunctional. No headache;no wound drainage; clinically patient looks good continue antibiotics per I.D. ; vanco was stopped due to acute renal failure and cubicin was started, nephrology following Bedrest with no higher than 30 degrees of elevation of bed Coumadin for DVT;will stop sliding scale;PT/INR q Sunday/;stop daily PT/ INR labs Continue current treatment Await Dietary consult, eval for assistance and management of malnutrition. Ensure plus 1 can TID. Continue alfonso cath. Pt was urinating on herself in bed and there is concern about effect on lumbar spine wound. Medical team evaluating and treating anemia. Dylan Martin MD Oct 21, 2017 09:19
[2017-10-21 12:00] VITALS: BP 149/71; PULSE 73; RESP 17; TEMP 97.7; O2SAT 94
[2017-10-21] MEDS ORDERED: SOD PHOSPHATE/SOD BIPHOSPHATE (ADULT) ENEMA 133ML PR ONE (12:00)
--- NOTE | 2017-10-21 12:43 | HHI.PR ---
Subjective Remarks 62 years old female obese -Bulgarian laying in bed in no acute distress She complained of stomach pain and constipation she has not moved her bowel in 3 -4 days Objective Vitals Vital Signs Date Time Temp Pulse Resp B/P (MAP) Pulse Ox O2 Delivery O2 Flow Rate FiO2 10/21/17 12:00 97.7 73 17 149/71 (97) 94 10/21/17 08:00 97.6 66 16 139/63 (88) 92 10/21/17 00:31 98.5 69 18 141/65 (90) 97 10/20/17 21:38 Nasal Cannula 2.00 10/20/17 20:00 98.2 77 18 156/84 (108) 94 10/20/17 16:00 97.4 68 16 135/65 (88) 95 I/O 10/20/17 10/20/17 10/20/17 10/21/17 10/21/17 10/21/17 07:00 15:00 23:00 07:00 15:00 23:00 Intake Total 780 ml 100 ml 1900 ml Output Total 1800 ml 4500 ml Balance -1020 ml 100 ml -2600 ml Intake Oral 780 ml 900 ml IV Total 100 ml 1000 ml Output Urine Total 1800 ml 4500 ml # Bowel Movements 0 0 Result Diagram: 10/20/17 1107 10/20/17 1107 Objective Remarks GENERAL: This is a morbidly obese AA female in no acute distress CARDIOVASCULAR: Regular rate and rhythm without murmurs, gallops, or rubs. RESPIRATORY: Clear to auscultation. Breath sounds equal bilaterally. No wheezes , rales, or rhonchi. GASTROINTESTINAL: Abdomen soft, non-tender, nondistended. Bowel sounds appreciated MUSCULOSKELETAL: Extremities without clubbing, cyanosis, or edema. NEURO: Alert & Oriented x4 to person, place, time, situation. Moves all ext x4 Procedures s/p I&D lumbar epidural abscess A/P Problem List: (1) Abscess in epidural space of lumbar spine ICD Code: G06.1 - Intraspinal abscess and granuloma (2) Gram-positive bacteremia ICD Code: R78.81 - Bacteremia Assessment and Plan 10/21: Continue current care with IV antibiotic, creatinine improved from 2.6- 2.3 follow culture and also/ID recommendation, repeat BMP in a.m. 61-year-old female with Abscess in the epidural space of lumbar spine Spiking fevers-resolved s/p irrigation and debridement and redo laminectomy L4-5 by orthopedic surgery Wound positive for MRSA Currently on Cubicin per ID Pain management accordingly Bedrest per Ortho Headache-Resolved Acute renal failure Nephrology input appreciated Renal indices improving Gram-positive bacteremia Currently on Daptomycin Repeat blood culture NTD ID ff Normochromic normocytic anemia Previously transfused 1 unit PRBC, transfused 1 unit 10/19/17 Check Hemoccult and continue to Monitor H&H Continue ferrous sulfate for iron deficiency anemia Hypoalbuminemia The decrease of serum concentrations of Albumin 2/2 acute episode of infection Prealbumin 15 Ensure added to Diet Treat above infection with IV antibiotic per ID Urinary incontinence - UA unremarkable Outpatient follow-up with urology if persist Dyslipidemia --hold statin as patient currently on Cubicin Hypertension - Continue Lisinopril 5mg daily DVT prophylaxis:on Coumadin- per ortho. Discussed with the patient, nurse PORT is not working per nurse. Reconsult IR on tomorrow or Sunday for reeval patient is refusing labs at this time Rosana Khalil MD Oct 21, 2017 12:43
[2017-10-21] MEDS: DEXTROSE 5%-LACTATED RING INJ 1,000 ML IV SCH (14:39)
[2017-10-21 16:00] VITALS: BP 167/76; PULSE 62; RESP 17; TEMP 98.2; O2SAT 94
[2017-10-21] MEDS ORDERED: WARFARIN SOD 5 MG TAB PO SCH (16:00)
[2017-10-21 20:00] VITALS: BP 144/65; PULSE 70; RESP 20; TEMP 99.2; O2SAT 92
[2017-10-22 00:46] VITALS: BP 150/76; PULSE 67; RESP 20; TEMP 98; O2SAT 96
[2017-10-22] MEDS: MORPHINE SULFATE 4 MG/ML INJ IV PUSH PRN ×5 (04:56→23:41)
[2017-10-22 07:26] LABS: INTERNATIONAL NORMALIZED RATIO 1.8 RATIO; PROTHROMBIN TIME - PATIENT 18.1 SEC (9.8-11.6)
[2017-10-22 07:43] LABS: BICARBONATE 33.1 MEQ/L (21.0-32.0); CALCIUM 9.3 MG/DL (8.5-10.1); CREATININE 1.86 MG/DL (0.50-1.00); MAGNESIUM 2.1 MG/DL (1.5-2.5); PHOSPHORUS 4.5 MG/DL (2.5-4.9)
[2017-10-22 08:00] VITALS: BP 178/81; PULSE 55; RESP 18; TEMP 97; O2SAT 94
[2017-10-22] MEDS: FERROUS SULFATE 325 MG (65 MG ELEMENTAL IRON) TAB PO SCH ×2 (09:39→19:58)
[2017-10-22] MEDS: DOCUSATE SODIUM 100 MG CAP PO SCH ×2 (09:39→19:58)
[2017-10-22] MEDS: DAPTOmycin INJ 600 MG in SODIUM CHLORIDE 0.9% INJ 100 ML IV SCH (09:39)
[2017-10-22] MEDS: GABAPENTIN 100 MG CAP PO SCH ×3 (09:39→17:44)
[2017-10-22] MEDS: PANTOPRAZOLE SOD 20 MG DELAYED RELEASE TAB PO SCH (09:39)
[2017-10-22] MEDS: MULTIVITAMINS/MINERALS THERAPEUTIC TAB PO SCH ×2 (09:39→19:58)
[2017-10-22] MEDS: ACETAMINOPHEN/HYDROcodone 325 MG/7.5 MG TAB PO PRN ×4 (09:39→22:28)
[2017-10-22] MEDS ORDERED: cloNIDine HCL 0.1 MG TAB PO PRN (10:00)
[2017-10-22] MEDS: amLODIPine BESYLATE 5 MG TAB PO SCH (11:30)
[2017-10-22 12:00] VITALS: BP 140/63; PULSE 58; RESP 18; TEMP 96.3; O2SAT 93
--- NOTE | 2017-10-22 15:50 | HHI.PR ---
Subjective Remarks Patient eating her lunch in her bed, she complained of popping in her ears otherwise stable Objective Vitals Vital Signs Date Time Temp Pulse Resp B/P (MAP) Pulse Ox O2 Delivery O2 Flow Rate FiO2 10/22/17 12:00 96.3 58 18 140/63 (88) 93 10/22/17 08:00 97.0 55 18 178/81 (113) 94 10/22/17 00:46 98.0 67 20 150/76 (100) 96 10/21/17 20:00 99.2 70 20 144/65 (91) 92 10/21/17 19:53 Nasal Cannula 2.00 10/21/17 16:00 98.2 62 17 167/76 (106) 94 I/O 10/21/17 10/21/17 10/21/17 10/22/17 10/22/17 10/22/17 07:00 15:00 23:00 07:00 15:00 23:00 Intake Total 350 ml 900 ml 1230 ml Output Total 6500 ml 1650 ml Balance 350 ml -5600 ml -420 ml Intake Oral 900 ml 480 ml IV Total 350 ml 750 ml Output Urine Total 6500 ml 1650 ml # Bowel Movements 0 Result Diagram: 10/20/17 1107 10/22/17 0623 Objective Remarks GENERAL: This is a morbidly obese AA female in no acute distress CARDIOVASCULAR: Regular rate and rhythm without murmurs, gallops, or rubs. RESPIRATORY: Clear to auscultation. Breath sounds equal bilaterally. No wheezes , rales, or rhonchi. GASTROINTESTINAL: Abdomen soft, non-tender, nondistended. Bowel sounds appreciated MUSCULOSKELETAL: Extremities without clubbing, cyanosis, or edema. NEURO: Alert & Oriented x4 to person, place, time, situation. Moves all ext x4 Procedures s/p I&D lumbar epidural abscess A/P Problem List: (1) Abscess in epidural space of lumbar spine ICD Code: G06.1 - Intraspinal abscess and granuloma (2) Gram-positive bacteremia ICD Code: R78.81 - Bacteremia Assessment and Plan 10/21: Continue current care with IV antibiotic, creatinine improved from 2.6- 2.3 follow culture and also/ID recommendation, repeat BMP in a.m. 10/22: Blood pressure is not controlled I will add Norvasc, creatinine improved from 2.3-1.86, monitor blood pressure, repeat BMP in a.m. A/P: 61-year-old female with Abscess in the epidural space of lumbar spine Spiking fevers-resolved s/p irrigation and debridement and redo laminectomy L4-5 by orthopedic surgery Wound positive for MRSA Currently on Cubicin per ID Pain management accordingly Bedrest per Ortho Headache-Resolved Acute renal failure Nephrology input appreciated Renal indices improving Gram-positive bacteremia Currently on Daptomycin Repeat blood culture NTD ID ff Normochromic normocytic anemia Previously transfused 1 unit PRBC, transfused 1 unit 10/19/17 Check Hemoccult and continue to Monitor H&H Continue ferrous sulfate for iron deficiency anemia Hypoalbuminemia The decrease of serum concentrations of Albumin 2/2 acute episode of infection Prealbumin 15 Ensure added to Diet Treat above infection with IV antibiotic per ID Urinary incontinence - UA unremarkable Outpatient follow-up with urology if persist Dyslipidemia --hold statin as patient currently on Cubicin Hypertension - Continue Lisinopril 5mg daily DVT prophylaxis:on Coumadin- per ortho. Discussed with the patient, nurse PORT is not working per nurse. Reconsult IR on tomorrow or Sunday for reeval patient is refusing labs at this time Rosana Khalil MD Oct 22, 2017 15:50
[2017-10-22 16:00] VITALS: BP 139/63; PULSE 67; RESP 18; TEMP 97.7; O2SAT 94
[2017-10-22] MEDS ORDERED: PHYTONADIONE 10 MG/ML VIAL SQ ONE (16:15)
--- NOTE | 2017-10-22 16:51 | PD.ORT.PN ---
Subjective Subjective Remarks POD # 17 Lumbar spine I&D MRSA No c/o of low back pain;no radiating leg pain;no headache Patient states she feels good Objective Vitals Vital Signs Date Time Temp Pulse Resp B/P (MAP) Pulse Ox O2 Delivery O2 Flow Rate FiO2 10/22/17 12:00 96.3 58 18 140/63 (88) 93 10/22/17 08:00 97.0 55 18 178/81 (113) 94 10/22/17 00:46 98.0 67 20 150/76 (100) 96 10/21/17 20:00 99.2 70 20 144/65 (91) 92 10/21/17 19:53 Nasal Cannula 2.00 I/O 10/21/17 10/21/17 10/21/17 10/22/17 10/22/17 10/22/17 07:00 15:00 23:00 07:00 15:00 23:00 Intake Total 350 ml 900 ml 1230 ml Output Total 6500 ml 1650 ml Balance 350 ml -5600 ml -420 ml Intake Oral 900 ml 480 ml IV Total 350 ml 750 ml Output Urine Total 6500 ml 1650 ml # Bowel Movements 0 Result Diagram: 3 1107 10/22/17 0623 Other Results Laboratory Tests Test 10/22/17 06:23 Prothromb Time International Ratio 1.8 RATIO Prothrombin Time 18.1 SEC (9.8-11.6) Objective Remarks Seen in room with her sister Alfonso cath in place Lumbar dressing dry, no drainage, no erythema motor +5/5 to LE Neurologically no focal deficit. Assessment & Plan Assessment and Plan pod #17 s/p lumbar spine I&D with MRSA infection: intra-op findings did not show evidence of epidural abscess Attempting fixing infusaport by IR tomorrow 3 No headache;no wound drainage; clinically patient looks good continue antibiotics per I.D. ; vanco was stopped due to acute renal failure and cubicin was started, nephrology following Bedrest with no higher than 30 degrees of elevation of bed Coumadin for DVT;will stop sliding scale; no longer need daily Pt/INRs, check twice a week. Await Dietary consult, eval for assistance and management of malnutrition. Ensure plus 1 can TID. Continue alfonso cath. Pt was urinating on herself in bed and there is concern about effect on lumbar spine wound. Medical team evaluating and treating anemia. Dylan Martin MD Oct 22, 2017 16:51
[2017-10-22] MEDS: DEXTROSE 5%-LACTATED RING INJ 1,000 ML IV SCH (17:52)
[2017-10-22 20:00] VITALS: BP 129/69; PULSE 61; RESP 18; TEMP 97.8; O2SAT 98
--- NOTE | 2017-10-22 20:20 | HHI.IDPN ---
Note Infectious Disease Note Patient states that she feels okay. Has pain in the back 7/10 scale. Decreased drainage from back incision area. Afebrile. No chills. Renal function appears to be improving. She is going down for an Ogdvoq-l-Jhlh replacement today. 61-year-old black female who recently underwent lumbar spine surgery. The patient was treated for lumbar spine stenosis. She underwent L4-L5 bilateral decompressive hemilaminectomy along with decompression of nerve root and left side L4-L5 repair of dural leak. The patient was discharged from the hospital on September 26. She was taken to surgery and underwent incision and drainage of an lumbar abscess. PAST MEDICAL HISTORY 1. Dyslipidemia, 2. Status post laminectomy for spinal stenosis 3. Appendectomy, 4. Gastric bypass 5. Knee replacement 6. Gastroesophageal reflux disease, 7. Hysterectomy. ALLERGIES NO KNOWN DRUG ALLERGIES. ANTIBIOTIC Daptomycin Current Medications Medications (Trade) Dose Ordered Sig/Kylah Route PRN Reason Start Time Stop Time Status Last Admin Dose Admin Dextrose/Lactated Ringer's 1,000 ml @ 50 mls/hr Q20H IV 10/05/17 12:00 10/21/17 14:39 Sodium Chloride (NS Flush) 5 ml UNSCH PRN IV FLUSH SEE PROTOCOL TABLE 10/05/17 14:00 10/20/17 11:06 Heparin Sodium (Porcine) (Heparin Central Flush) 250 units UNSCH PRN IV FLUSH SEE PROTOCOL TABLE 10/05/17 14:00 10/13/17 20:31 Heparin Sodium (Porcine) (Heparin Central Flush) 500 units UNSCH IV FLUSH 10/05/17 14:00 10/20/17 06:24 Morphine Sulfate (Morphine Inj) 5 mg Q3H PRN IV PUSH BREAKTHROUGH PAIN 10/05/17 17:00 10/22/17 19:07 Acetaminophen/ Hydrocodone Bitart ([place] 7.5-325 Mg) 1 tab Q4H PRN PO PAIN SCALE 1 TO 5 10/05/17 17:00 10/21/17 17:45 Multivitamins/ Minerals Therapeutic (Theragran M Tab) 1 tab BID PO 10/06/17 09:00 12/05/17 08:59 10/22/17 19:58 Ondansetron HCl (Zofran Inj) 4 mg Q6H PRN IV PUSH NAUSEA OR VOMITING 10/05/17 17:00 Al Hydrox/Mg Hydrox/Simethicone (Mag-Al Plus Susp Liq) 30 ml Q6H PRN PO INDIGESTION 10/05/17 17:00 Zolpidem Tartrate (Ambien) 5 mg HS PRN PO SLEEP 10/05/17 21:00 Bisacodyl (Dulcolax Supp) 10 mg DAILY PRN RECTAL CONSTIPATION 10/05/17 17:15 Naloxone HCl (Narcan Inj) 0.4 mg UNSCH PRN IV PUSH RESPIRATORY RATE LESS THAN 10 10/05/17 17:00 Pravastatin Sodium (Pravachol) 40 mg DAILY PO 10/06/17 09:00 Future Hold 10/15/17 08:34 Pantoprazole Sodium (Protonix) 20 mg DAILY PO 10/06/17 09:00 10/22/17 09:39 Acetaminophen/ Hydrocodone Bitart ([place] 7.5-325 Mg) 2 tab Q4HR PRN PO PAIN SCALE 6 TO 10 10/06/17 09:00 10/22/17 17:44 Docusate Sodium (Colace) 100 mg BID PO 10/06/17 09:30 10/22/17 19:58 Acetaminophen (Tylenol) 650 mg Q4H PRN PO fever > 101 10/08/17 02:45 10/13/17 11:31 Lisinopril (Prinivil) 5 mg DAILY PO 10/10/17 09:00 Future Hold 10/15/17 08:34 Ferrous Sulfate (Ferrous Sulfate) 325 mg BID PO 10/10/17 21:00 10/22/17 19:58 Magnesium Hydroxide (Milk Of Magnesia Liq) 30 ml Q6H PRN PO CONSTIPATION 10/14/17 09:45 10/18/17 21:39 Daptomycin 600 mg/ Sodium Chloride 100 ml @ 200 mls/hr Q48H IV 10/18/17 09:00 10/22/17 09:39 Gabapentin (Neurontin) 200 mg TID PO 10/17/17 13:00 10/22/17 17:44 Warfarin Sodium (Coumadin) 5 mg DAILY@1600 PO 10/21/17 16:00 Future Hold 10/21/17 16:00 Bisacodyl (Dulcolax Supp) 10 mg DAILY PRN RECTAL CONSTIPATION 10/21/17 12:45 Amlodipine Besylate (Norvasc) 5 mg DAILY PO 10/22/17 11:00 10/22/17 11:30 Clonidine (Catapres) 0.1 mg Q6H PRN PO bp>160/90 10/22/17 10:00 OBJECTIVE: Vital Signs Date Time Temp Pulse Resp B/P (MAP) Pulse Ox O2 Delivery O2 Flow Rate FiO2 10/22/17 16:00 97.7 67 18 139/63 (88) 94 10/22/17 12:00 96.3 58 18 140/63 (88) 93 10/22/17 09:45 Nasal Cannula 3.00 10/22/17 08:00 97.0 55 18 178/81 (113) 94 10/22/17 00:46 98.0 67 20 150/76 (100) 96 Laboratory Tests Test 10/22/17 06:23 Blood Urea Nitrogen 21 MG/DL Creatinine 1.86 MG/DL Random Glucose 98 MG/DL Calcium Level 9.3 MG/DL Phosphorus Level 4.5 MG/DL Magnesium Level 2.1 MG/DL Sodium Level 141 MEQ/L Potassium Level 3.7 MEQ/L Chloride Level 101 MEQ/L Carbon Dioxide Level 33.1 MEQ/L Anion Gap 7 MEQ/L Estimat Glomerular Filtration Rate 33 ML/MIN Microbiology Date/Time Source Procedure Growth Status 10/21/17 18:37 Stool Stool Stool Occult Blood (EBER) - Final HEMOCCULT NEGATIVE Complete IMAGING: Venous Access Device Injection 10/15/17 0000 Signed Impressions: Service Date/Time: Sunday, October 15, 2017 16:44 - CONCLUSION: Port in good position. Fibrin sheath will prevent blood aspiration. Consideration could be made to fibrin sheath stripping to restore this function of the port. Dipesh Auguste Jr., MD Renal Ultrasound 10/15/17 0000 Signed Impressions: Service Date/Time: Sunday, October 15, 2017 19:52 - CONCLUSION: Image quality is less than optimal secondary to patient body habitus. However, no hydronephrosis or concerning abnormality is identified. Cole Boston MD Lumbar Spine MRI 10/15/17 0000 Signed Impressions: Service Date/Time: Sunday, October 15, 2017 20:44 - CONCLUSION: 1. There is a fluid collection extending from the laminectomy defect at the L4-L5 level, through the posterior paraspinal musculature, and into the subcutaneous fat of the midline and right back. The subcutaneous portion of the collection measures approximately 11.8 x 3.3 cm and extends almost to the skin surface. 2. The spinal canal is not well-visualized at L4-L5. There is likely spinal canal stenosis. 3. There is a CSF density collection in the posterior spinal canal extending from approximately T12-L2. The appearance is suspicious for an arachnoid cyst. It displaces the nerve roots in the thecal sac. Cole Boston MD Chest X-Ray 10/08/17 0000 Signed Impressions: Service Date/Time: Sunday, October 08, 2017 05:16 - CONCLUSION: 1. Low lung volumes with mild patchy bilateral lower lung zone airspace disease, likely atelectasis. Foreign Blancas MD PHYSICAL EXAMINATION GENERAL: Awake and alert. No acute distress. HEENT: No icterus. Oropharynx moist mucosa without lesions. NECK: Supple without adenopathy. LUNGS: Clear breath sounds. HEART: Regular S1, S2 without murmurs, rubs or gallops. ABDOMEN: Bowel sounds present, soft, no tenderness. BACK: Little drainage coming from the back incision. EXTREMITIES: No clubbing or cyanosis or edema. SKIN: No rash. NEUROLOGIC: No gross focal findings. PSYCHIATRIC: Calm and cooperative. IMPRESSION 1. Lumbar abscess. MRSA. Post drainage. Patient continues to have drainage from the back wound. Drainage has decreased. 2. Fever. Improved. 3. Postoperative wound infection of the lumbar spine. 4. Post laminectomy and repair of epidural tear. 5. Acute renal failure. Probably related to vancomycin. Kidney function improving. Nephrology following. RECOMMENDATIONS 1. Continue Daptomycin. Monitor CPK weekly. 2. Monitor the temperature. 3. Monitor the back drainage 4. Monitor clinical status. Clinically appears stable. When improvement in the renal function occurs, plans can be made for continuing treatment outpatient. However the patient will require intravenous antibiotics with Daptomycin because of the deteriorated Renal function while on vancomycin. Treatment with IV antibiotic for 6 weeks from the last positive wound culture. Shukri Naqvi MD Oct 22, 2017 20:19
[2017-10-22 20:26] VITALS: O2SAT 94
[2017-10-23] VITALS (9 sets, daily range): BP systolic 117–188; BP diastolic 57–88; PULSE 60–85; RESP 18–20; TEMP 96.8–98.4; O2SAT 93–98
[2017-10-23] MEDS: ACETAMINOPHEN/HYDROcodone 325 MG/7.5 MG TAB PO PRN ×4 (02:47→18:31)
[2017-10-23] MEDS: MORPHINE SULFATE 4 MG/ML INJ IV PUSH PRN ×5 (03:40→22:57)
[2017-10-23] MEDS: DEXTROSE 5%-LACTATED RING INJ 1,000 ML IV SCH ×2 (06:15→16:44)
--- NOTE | 2017-10-23 07:05 | PD.ORT.PN ---
Subjective Subjective Remarks POD # 18 Lumbar spine I&D MRSA No c/o of low back pain;no radiating leg pain;no headache Patient states she feels good Objective Vitals Vital Signs Date Time Temp Pulse Resp B/P (MAP) Pulse Ox O2 Delivery O2 Flow Rate FiO2 10/23/17 03:45 18 3 03:45 18 10/23/17 00:00 98.1 60 18 136/75 (95) 97 10/22/17 20:26 94 Nasal Cannula 3.00 10/22/17 20:00 Nasal Cannula 3.00 10/22/17 20:00 97.8 61 18 129/69 (89) 98 10/22/17 16:00 97.7 67 18 139/63 (88) 94 10/22/17 12:00 96.3 58 18 140/63 (88) 93 10/22/17 09:45 Nasal Cannula 3.00 10/22/17 08:00 97.0 55 18 178/81 (113) 94 I/O 10/22/17 10/22/17 10/22/17 10/23/1718 10/23/17 07:00 15:00 23:00 07:00 15:00 23:00 Intake Total 1230 ml 100 ml 2027 ml 480 ml Output Total 1650 ml 3400 ml 2400 ml Balance -420 ml 100 ml -1373 ml -1920 ml Intake Oral 480 ml 1440 ml 480 ml IV Total 750 ml 100 ml 587 ml Output Urine Total 1650 ml 3400 ml 2400 ml # Bowel Movements 0 0 Result Diagram: 10/20/17 1107 10/22/17 0623 Objective Remarks Alfonso cath in place Lumbar dressing dry, no drainage, no erythema motor +5/5 to LE Neurologically no focal deficit. Assessment & Plan Assessment and Plan pod #18 s/p lumbar spine I&D with MRSA infection: intra-op findings did not show evidence of epidural abscess Attempting fixing infusaport by IR tomorrow today No headache;no wound drainage; clinically patient looks good continue antibiotics per I.D. ; vanco was stopped due to acute renal failure and cubicin was started, nephrology following Bedrest with no higher than 30 degrees of elevation of bed Coumadin for DVT;will stop sliding scale; no longer need daily Pt/INRs, check twice a week(Sunday,). Await Dietary consult, eval for assistance and management of malnutrition. Ensure plus 1 can TID. Continue alfonso cath. Pt was urinating on herself in bed and there is concern about effect on lumbar spine wound. Medical team evaluating and treating anemia. Dylan Martin MD Oct 23, 2017 07:05
[2017-10-23] MEDS: FERROUS SULFATE 325 MG (65 MG ELEMENTAL IRON) TAB PO SCH ×2 (08:05→21:36)
[2017-10-23] MEDS: PANTOPRAZOLE SOD 20 MG DELAYED RELEASE TAB PO SCH (08:05)
[2017-10-23] MEDS: DOCUSATE SODIUM 100 MG CAP PO SCH ×2 (08:05→21:36)
[2017-10-23] MEDS: GABAPENTIN 100 MG CAP PO SCH ×3 (08:05→18:31)
[2017-10-23] MEDS: amLODIPine BESYLATE 5 MG TAB PO SCH (08:05)
[2017-10-23] MEDS: MULTIVITAMINS/MINERALS THERAPEUTIC TAB PO SCH ×2 (08:05→21:36)
[2017-10-23] MEDS ORDERED: VANCOMYCIN INJ 1,000 MG in SODIUM CHLOR 0.9% 250 ML INJ 250 ML IV SCH (10:30)
[2017-10-23] MEDS ORDERED: ceFAZolin 2 GM PREMIX 50 ML IV SCH (10:30)
[2017-10-23 10:46] LABS: INTERNATIONAL NORMALIZED RATIO 1.6 RATIO; PROTHROMBIN TIME - PATIENT 16.2 SEC (9.8-11.6)
[2017-10-23 10:49] LABS: BICARBONATE 32.8 MEQ/L (21.0-32.0); CALCIUM 9.6 MG/DL (8.5-10.1); CREATININE 1.95 MG/DL (0.50-1.00)
[2017-10-23] MEDS ORDERED: LIDOCAINE 1%/EPINEPHrine 1:100,000 SOLN 30 ML VIAL ONE (11:56)
[2017-10-23] MEDS ORDERED: MIDAZOLAM HCL 2 MG/2 ML VIAL ONE (11:59)
[2017-10-23] MEDS ORDERED: fentaNYL CITRATE 250 MCG/5 ML AMP ONE (11:59)
--- NOTE | 2017-10-23 12:41 | HHI.PR ---
Subjective Remarks Patient sleepy wake up to voice Denied complain or pain No fever overnight Plan to place port tomorrow Objective Vitals Vital Signs Date Time Temp Pulse Resp B/P (MAP) Pulse Ox O2 Delivery O2 Flow Rate FiO2 10/23/17 08:12 Nasal Cannula 3.00 10/23/17 08:00 97.5 70 20 188/88 (121) 98 10/23/17 03:45 18 10/23/17 03:45 18 10/23/17 00:00 98.1 60 18 136/75 (95) 97 10/22/17 20:26 94 Nasal Cannula 3.00 10/22/17 20:00 Nasal Cannula 3.00 10/22/17 20:00 97.8 61 18 129/69 (89) 98 10/22/17 16:00 97.7 67 18 139/63 (88) 94 I/O 10/22/17 10/22/17 10/22/17 10/23/17 10/23/17 10/23/17 07:00 15:00 23:00 07:00 15:00 23:00 Intake Total 1230 ml 100 ml 2027 ml 480 ml Output Total 1650 ml 3400 ml 2400 ml Balance -420 ml 100 ml -1373 ml -1920 ml Intake Oral 480 ml 1440 ml 480 ml IV Total 750 ml 100 ml 587 ml Output Urine Total 1650 ml 3400 ml 2400 ml # Bowel Movements 0 0 Result Diagram: 10/20/17 1107 10/23/17 1013 Objective Remarks GENERAL: This is a morbidly obese AA female in no acute distress CARDIOVASCULAR: Regular rate and rhythm without murmurs, gallops, or rubs. RESPIRATORY: Clear to auscultation. Breath sounds equal bilaterally. No wheezes , rales, or rhonchi. GASTROINTESTINAL: Abdomen soft, non-tender, nondistended. Bowel sounds appreciated MUSCULOSKELETAL: Extremities without clubbing, cyanosis, or edema. NEURO: Alert & Oriented x4 to person, place, time, situation. Moves all ext x4 Procedures s/p I&D lumbar epidural abscess A/P Problem List: (1) Abscess in epidural space of lumbar spine ICD Code: G06.1 - Intraspinal abscess and granuloma (2) Gram-positive bacteremia ICD Code: R78.81 - Bacteremia Assessment and Plan 3/11: Continue current care with IV antibiotic, creatinine improved from 2.6- 2.3 follow culture and also/ID recommendation, repeat BMP in a.m. 10/22: Blood pressure is not controlled I will add Norvasc, creatinine improved from 2.3-1.86, monitor blood pressure, repeat BMP in a.m. 10/23: Blood pressure better, port removal and replacement has been attempted by IR but was not successful, patient is not candidate for port placement in the chest A/P: 61-year-old female with Abscess in the epidural space of lumbar spine Spiking fevers-resolved s/p irrigation and debridement and redo laminectomy L4-5 by orthopedic surgery Wound positive for MRSA Currently on Cubicin per ID Pain management accordingly Bedrest per Ortho port removal and replacement has been attempted by IR but was not successful, patient is not candidate for port placement in the chest Headache-Resolved Acute renal failure Nephrology input appreciated Renal indices improving Gram-positive bacteremia Currently on Daptomycin Repeat blood culture NTD ID ff Normochromic normocytic anemia Previously transfused 1 unit PRBC, transfused 1 unit 10/19/17 Check Hemoccult and continue to Monitor H&H Continue ferrous sulfate for iron deficiency anemia Hypoalbuminemia The decrease of serum concentrations of Albumin 2/2 acute episode of infection Prealbumin 15 Ensure added to Diet Treat above infection with IV antibiotic per ID Urinary incontinence - UA unremarkable Outpatient follow-up with urology if persist Dyslipidemia --hold statin as patient currently on Cubicin Hypertension - Continue Lisinopril 5mg daily DVT prophylaxis:on Coumadin- per ortho. Discussed with the patient, nurse Rosana Khalil MD Oct 23, 2017 12:40
--- NOTE | 2017-10-23 13:10 | PD.RAD ---
Post Procedure Progress Note Pre Procedure Diagnosis: (1) Anemia Post Procedure Diagnosis: (1) Anemia Procedure Date: Oct 23, 2017 Supervising Radiologist: Mati Posada Estimated blood loss: none Anesthesia: Local, Conscious Sedation Plan of Activity Patient to Unit: ROPU Patient Condition: Fair Additional Comments: Patient evaluated for port removal and replacement. The patient has complete central venous occlusion with only enlarged pericardial veins providing drainage. Multiple attempts made to cross the occluded segment of SVC. These were not successful due to fibrosis of the SVC Old port was evaluated. The tip of the old port is in the right atrium and the port flushes well. The port was flushed aggressively with saline and there is now blood return with very slow withdraw. Blood can be withdrawn with a 3cc syringe and very slow draw back. Pt is not a candidate for new port placement in the chest. See PACS Report for procedural detail/treatment Mati Posada MD Oct 23, 2017 13:10
--- NOTE | 2017-10-23 14:13 | RADRPT ---
EXAM DATE/TIME: 10/23/2017 11:57 [facility] COMPARISON: US GUIDED VASCULAR ACCESS, LEFT, October 23, 2017, 0:00. INDICATIONS : Patient presents with non functioning port in need of evaluation with possible removal and or exchang e. MEDICAL HISTORY : Dyslipidemia Gastroesophageal reflux disease HTN PAD Heart failure SURGICAL HISTORY : Appendectomy Gastric bypass Knee replacement Hysterectomy Status post laminectomy for spinal stenosis ENCOUNTER: Initial ACUITY: 4 - 6 days PAIN SCORE: 0/10 LOCATION: n/a FLUORO TIME: 13.6 minutes IMAGE SERIES: 3 ACCESS SITE: Left Internal jugular vein SEDATION TIME: 30 minutes CONTRAST: 1.) 20 cc Omnipaque (iohexol) 350 MEDICATION(S): 1.) 2 mg midazolam (Versed) IV 2.) 100 mcg fentanyl (Sublimaze) IV 3.) 2 g cefazolin (Ancef) IV 4.) 1 g Vancomycin IV PROCEDURE : 1. Ultrasound-guided puncture of the left femoral vein. 2. Conscious sedation with continuous EKG and Oximetry monitoring. 3. venography of the upper chest. 4. evaluation of the patient's Ufzcyp-o-Ekhp. Clinical history: The patient is a 62-year-old who's had multiple central lines an Snayve-u-Vics. The patient presently has a port in place from the right. The tip of this port is within the right atria. There was attemp t made to strip the fibrin sheath from this port to restore function however this was unsuccessful. W e're asked to remove the port and replacement with a new one. The right neck was examined with ultrasound. The right jugular vein is occluded. The left neck was ev aluated. The left jugular vein was small in size but at least partially patent. The left subclavian v ein demonstrates only multiple collaterals. The risks, benefits and alternatives to the procedure were explained and verbal and written consent w as obtained. The site was prepped in sterile fashion. Full sterile technique was used, including ca p, mask, sterile gloves and gown and a large sterile sheet. Hand hygiene and 2% chlorhexidine and/or betadine/alcohol prep was utilized per protocol for cutaneous antisepsis. Sterile gel and sterile p robe cover were utilized for ultrasound guidance. The skin and subcutaneous tissues were infiltrated with local anesthetic solution. With ultrasound and fluoroscopic guidance the left internal jugular vein was punctured and a 4 Argentine introducer was passed into the jugular vein. A wire could not be advanced centrally. The 4 Argentine introducer was exchanged for a 4 Argentine Berenstein catheter. 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 A 0.035 angle Glidewire and Berenstein catheter were manipulated down to the junction of the left inn ominate vein and SVC. Multiple catheter wire combinations were used to attempt to crawl cyst to allow placement of a new [id number]-Itku from a left-sided approach. These were not successful. The patient's existing port was accessed. Contrast could easily be instilled through the port and int o the SVC however, no blood could be withdrawn. The port was vigorously flushed with 20 cc of sterile saline. Following this, with a 3 cc syringe blo od could BE slowly withdrawn from the port. Conscious sedation was performed with the prescribed dosages and duration as above in the presence of an independent trained radiology nurse to assist in the monitoring of the patient. EKG and oximetry remained stable throughout the procedure. CONCLUSION: 1. The patient has complete fibrotic central venous occlusion and is not a candidate for Xsrshs-e-Fcf t placement in the upper chest. 2. The existing port which is in an appropriate location and can be used for infusion of medications or other indicated products. 3. The existing port was vigorously flushed with 20 cc of saline following this using a slow, deliber ate technique blood could be withdrawn if a 3 cc syringe was used. Mati Posada MD on October 23, 2017 at 14:04 Board Certified Radiologist. This report was verified electronically.
--- NOTE | 2017-10-23 14:16 | RADRPT ---
EXAM DATE/TIME: 10/23/2017 11:57 [facility] COMPARISON: US GUIDED VASCULAR ACCESS, LEFT, October 23, 2017, 0:00. INDICATIONS : Patient presents with non functioning port in need of evaluation with possible removal and or exchang e. MEDICAL HISTORY : Dyslipidemia Gastroesophageal reflux disease HTN PAD Heart failure SURGICAL HISTORY : Appendectomy Gastric bypass Knee replacement Hysterectomy Status post laminectomy for spinal stenosis ENCOUNTER: Subsequent ACUITY: 4-6 days PAIN SCORE: 0/10 LOCATION: N/A FLUORO TIME: 13.6 minutes IMAGE SERIES: 3 SEDATION TIME: 30minutes CONTRAST: 20 cc Omnipaque (iohexol) 350 MEDICATION(S): 1.) 2 mg midazolam (Versed) IV 2.) 100 mcg fentanyl (Sublimaze) IV 3.) 2 g cefazolin (Ancef) IV 4.) 1 g midazolam (Versed) IV PROCEDURE : 1. Access of Ixdswf-[id number]. 2. Port patency injection. The risks, benefits and alternatives to the procedure were explained and verbal and written consent w as obtained. The patient was placed supine. The port was prepped in sterile fashion. Full sterile t echnique was used, including cap, mask, sterile gloves and gown, and a large sterile sheet. Hand hyg iene and 2% chlorhexidine prep was utilized per protocol for cutaneous antisepsis with appropriate dr y time for site. The previously placed port was accessed and positive contrast was injected for evaluation. Injection demonstrates the catheter tip to be at the level of the right atria. The port was flushed with 20 cc of sterile saline. Following this blood could be withdrawn using a slow technique and a 3 cc syringe . CONCLUSION: 1. The catheter tip port is at the level of the right atria. 2. The patient has complete central venous occlusion. 3. Please see above. Mati Posada MD on October 23, 2017 at 14:11 Board Certified Radiologist. This report was verified electronically.
[2017-10-24] MEDS: ACETAMINOPHEN/HYDROcodone 325 MG/7.5 MG TAB PO PRN ×4 (03:31→20:20)
[2017-10-24 04:08] VITALS: BP 133/62; PULSE 65; RESP 18; TEMP 98.4; O2SAT 93
--- NOTE | 2017-10-24 07:45 | PD.ORT.PN ---
Subjective Subjective Remarks POD # 19 Lumbar spine I&D MRSA No c/o of low back pain;no radiating leg pain;no headache Patient states she feels good Patient is disappointed about not having new infusaport Objective Vitals Vital Signs Date Time Temp Pulse Resp B/P (MAP) Pulse Ox O2 Delivery O2 Flow Rate FiO2 10/24/17 04:08 98.4 65 18 133/62 (85) 93 10/23/17 23:50 98.4 68 18 133/60 (84) 94 10/23/17 20:00 97.5 69 18 117/57 (77) 93 10/23/17 19:40 Nasal Cannula 2.00 10/23/17 16:00 98.3 63 18 150/70 (96) 98 10/23/17 13:56 83 18 128/62 (84) 95 10/23/17 13:26 81 18 143/75 (97) 95 10/23/17 13:11 97.3 85 18 135/64 (87) 96 10/23/17 12:00 96.8 72 20 178/75 (109) 98 10/23/17 08:12 Nasal Cannula 3.00 10/23/17 08:00 97.5 70 20 188/88 (121) 98 I/O 10/23/17 10/23/17 10/23/17 10/24/17 10/24/17 10/24/17 07:00 15:00 23:00 07:00 15:00 23:00 Intake Total 480 ml 620 ml 240 ml Output Total 2400 ml 500 ml 1300 ml Balance -1920 ml 120 ml -1060 ml Intake Oral 480 ml 620 ml 240 ml Output Urine Total 2400 ml 500 ml 1300 ml # Bowel Movements 0 0 0 Result Diagram: 10/20/17 1107 10/23/17 1013 Other Results Laboratory Tests Test 10/23/17 10:13 Prothromb Time International Ratio 1.6 RATIO Prothrombin Time 16.2 SEC (9.8-11.6) Objective Remarks Alfonso cath in place Lumbar dressing mild drainage, no erythema motor +5/5 to LE Neurologically no focal deficit. Assessment & Plan Assessment and Plan pod #19 s/p lumbar spine I&D with MRSA infection: intra-op findings did not show evidence of epidural abscess Unableto replace infusaport by IR yesterday No headache;recurrent wound drainage; clinically patient looks good Will d/w and consult Dr Wadsworth for further evaluation and management of lumbar spine condition continue antibiotics per I.D. ; vanco was stopped due to acute renal failure and cubicin was started, nephrology following Bedrest with no higher than 30 degrees of elevation of bed Coumadin for DVT;will stop sliding scale; no longer need daily Pt/INRs, check twice a week(Sunday,). Await Dietary consult, eval for assistance and management of malnutrition. Ensure plus 1 can TID. Continue alfonso cath. Pt was urinating on herself in bed and there is concern about effect on lumbar spine wound. Medical team evaluating and treating anemia. Dylan Martin MD Oct 24, 2017 07:45
[2017-10-24 08:00] VITALS: BP 152/77; PULSE 63; RESP 17; TEMP 98; O2SAT 96
[2017-10-24] MEDS: amLODIPine BESYLATE 5 MG TAB PO SCH (09:02)
[2017-10-24] MEDS: FERROUS SULFATE 325 MG (65 MG ELEMENTAL IRON) TAB PO SCH ×2 (09:02→20:21)
[2017-10-24] MEDS: GABAPENTIN 100 MG CAP PO SCH ×3 (09:03→16:51)
[2017-10-24] MEDS: DOCUSATE SODIUM 100 MG CAP PO SCH ×2 (09:03→20:21)
[2017-10-24] MEDS: PANTOPRAZOLE SOD 20 MG DELAYED RELEASE TAB PO SCH (09:03)
[2017-10-24] MEDS: MULTIVITAMINS/MINERALS THERAPEUTIC TAB PO SCH ×2 (09:03→20:21)
[2017-10-24] MEDS: DAPTOmycin INJ 600 MG in SODIUM CHLORIDE 0.9% INJ 100 ML IV SCH (11:00)
[2017-10-24] MEDS: MORPHINE SULFATE 4 MG/ML INJ IV PUSH PRN ×3 (11:01→22:06)
--- NOTE | 2017-10-24 11:56 | HHI.PR ---
Subjective Remarks Resting comfortably in bed No event overnight Denied chest and or short of breath No fever or chills Objective Vitals Vital Signs Date Time Temp Pulse Resp B/P (MAP) Pulse Ox O2 Delivery O2 Flow Rate FiO2 10/24/17 08:00 98.0 63 17 152/77 (102) 96 10/24/17 04:08 98.4 65 18 133/62 (85) 93 10/23/17 23:50 98.4 68 18 133/60 (84) 94 10/23/17 20:00 97.5 69 18 117/57 (77) 93 10/23/17 19:40 Nasal Cannula 2.00 10/23/17 16:00 98.3 63 18 150/70 (96) 98 10/23/17 13:56 83 18 128/62 (84) 95 10/23/17 13:26 81 18 143/75 (97) 95 10/23/17 13:11 97.3 85 18 135/64 (87) 96 10/23/17 12:00 96.8 72 20 178/75 (109) 98 I/O 10/23/17 10/23/17 10/23/17 10/24/17 10/24/17 10/24/17 07:00 15:00 23:00 07:00 15:00 23:00 Intake Total 480 ml 620 ml 240 ml Output Total 2400 ml 500 ml 1300 ml Balance -1920 ml 120 ml -1060 ml Intake Oral 480 ml 620 ml 240 ml Output Urine Total 2400 ml 500 ml 1300 ml # Bowel Movements 0 0 0 Result Diagram: 10/20/17 1107 10/23/17 1013 Objective Remarks GENERAL: This is a morbidly obese AA female in no acute distress CARDIOVASCULAR: Regular rate and rhythm without murmurs, gallops, or rubs. RESPIRATORY: Clear to auscultation. Breath sounds equal bilaterally. No wheezes , rales, or rhonchi. GASTROINTESTINAL: Abdomen soft, non-tender, nondistended. Bowel sounds appreciated MUSCULOSKELETAL: Extremities without clubbing, cyanosis, or edema. NEURO: Alert & Oriented x4 to person, place, time, situation. Moves all ext x4 Procedures s/p I&D lumbar epidural abscess A/P Problem List: (1) Abscess in epidural space of lumbar spine ICD Code: G06.1 - Intraspinal abscess and granuloma (2) Gram-positive bacteremia ICD Code: R78.81 - Bacteremia Assessment and Plan 10/21: Continue current care with IV antibiotic, creatinine improved from 2.6- 2.3 follow culture and also/ID recommendation, repeat BMP in a.m. 10/22: Blood pressure is not controlled I will add Norvasc, creatinine improved from 2.3-1.86, monitor blood pressure, repeat BMP in a.m. 10/23: Blood pressure better, port removal and replacement has been attempted by IR but was not successful, patient is not candidate for port placement in the chest 10/24: Creatinine yesterday increased little up to 1.95, will repeat in a.m. if continues to increase again we will reconsult nephrology, per IR night candidate for chest port, continue monitor BMP A/P: 61-year-old female with Abscess in the epidural space of lumbar spine Spiking fevers-resolved s/p irrigation and debridement and redo laminectomy L4-5 by orthopedic surgery Wound positive for MRSA Currently on Cubicin per ID Pain management accordingly Bedrest per Ortho port removal and replacement has been attempted by IR but was not successful, patient is not candidate for port placement in the chest Headache-Resolved Acute renal failure Nephrology input appreciated Renal indices improving Gram-positive bacteremia Currently on Daptomycin Repeat blood culture NTD ID ff Normochromic normocytic anemia Previously transfused 1 unit PRBC, transfused 1 unit 10/19/17 Check Hemoccult and continue to Monitor H&H Continue ferrous sulfate for iron deficiency anemia Hypoalbuminemia The decrease of serum concentrations of Albumin 2/2 acute episode of infection Prealbumin 15 Ensure added to Diet Treat above infection with IV antibiotic per ID Urinary incontinence - UA unremarkable Outpatient follow-up with urology if persist Dyslipidemia --hold statin as patient currently on Cubicin Hypertension - Continue Lisinopril 5mg daily DVT prophylaxis:on Coumadin- per ortho. Discussed with the patient, nurse Rosana Khalil MD Oct 24, 2017 11:56
[2017-10-24 12:00] VITALS: BP 148/70; PULSE 68; RESP 18; TEMP 97.5; O2SAT 96
[2017-10-24] MEDS: DEXTROSE 5%-LACTATED RING INJ 1,000 ML IV SCH (14:41)
[2017-10-24 16:00] VITALS: BP 152/67; PULSE 67; RESP 18; TEMP 97.5; O2SAT 95
[2017-10-24 20:00] VITALS: BP 121/59; PULSE 65; RESP 16; TEMP 97; O2SAT 93
[2017-10-24 20:09] LABS: BICARBONATE 28.9 MEQ/L (21.0-32.0); CALCIUM 9.7 MG/DL (8.5-10.1); CREATININE 1.65 MG/DL (0.50-1.00)
[2017-10-25] VITALS: BP 155/67; PULSE 64; RESP 16; TEMP 97.1; O2SAT 94
[2017-10-25 04:00] VITALS: BP 122/64; PULSE 62; RESP 16; TEMP 96.9; O2SAT 95
[2017-10-25] MEDS: ACETAMINOPHEN/HYDROcodone 325 MG/7.5 MG TAB PO PRN ×4 (06:45→20:24)
[2017-10-25 07:10] LABS: INTERNATIONAL NORMALIZED RATIO 1.1 RATIO; PROTHROMBIN TIME - PATIENT 11.3 SEC (9.8-11.6)
[2017-10-25 07:30] LABS: BICARBONATE 30.9 MEQ/L (21.0-32.0); CALCIUM 9.6 MG/DL (8.5-10.1); CREATININE 1.47 MG/DL (0.50-1.00)
[2017-10-25 08:00] VITALS: BP 144/70; PULSE 65; RESP 19; TEMP 97.8; O2SAT 95
[2017-10-25] MEDS: DOCUSATE SODIUM 100 MG CAP PO SCH ×2 (08:07→20:25)
[2017-10-25] MEDS: amLODIPine BESYLATE 5 MG TAB PO SCH (08:07)
[2017-10-25] MEDS: GABAPENTIN 100 MG CAP PO SCH ×3 (08:07→16:09)
[2017-10-25] MEDS: PANTOPRAZOLE SOD 20 MG DELAYED RELEASE TAB PO SCH (08:07)
[2017-10-25] MEDS: FERROUS SULFATE 325 MG (65 MG ELEMENTAL IRON) TAB PO SCH ×2 (08:07→20:24)
[2017-10-25] MEDS: MULTIVITAMINS/MINERALS THERAPEUTIC TAB PO SCH ×2 (08:07→20:25)
[2017-10-25] MEDS: MORPHINE SULFATE 4 MG/ML INJ IV PUSH PRN ×4 (08:08→21:43)
[2017-10-25] MEDS: DEXTROSE 5%-LACTATED RING INJ 1,000 ML IV SCH ×2 (09:56→15:52)
[2017-10-25 12:00] VITALS: BP 116/59; PULSE 89; RESP 19; TEMP 97.8; O2SAT 96
--- NOTE | 2017-10-25 12:16 | PD.ORT.PN ---
Subjective Subjective Remarks pod #20 s/p lumbar spine I&D with MRSA infection: intra-op findings did not show evidence of epidural abscess pt has no headaches, no back pain, no radiating leg pain pt has hx of chronic pain syndrome Objective Vitals Vital Signs Date Time Temp Pulse Resp B/P (MAP) Pulse Ox O2 Delivery O2 Flow Rate FiO2 10/25/17 08:00 97.8 65 19 144/70 (94) 95 10/25/17 04:00 96.9 62 16 122/64 (83) 95 10/25/17 00:00 97.1 64 16 155/67 (96) 94 10/24/17 21:30 Nasal Cannula 2.00 10/24/17 20:00 97.0 65 16 121/59 (79) 93 10/24/17 16:00 97.5 67 18 152/67 (95) 95 10/24/17 12:46 96 2.00 I/O 10/24/17 10/24/17 10/24/17 10/25/17 10/25/17 10/25/17 07:00 15:00 23:00 07:00 15:00 23:00 Intake Total 240 ml 1100 ml 720 ml 240 ml Output Total 1300 ml 1400 ml 1200 ml Balance -1060 ml 1100 ml -680 ml -1200 ml 240 ml Intake Oral 240 ml 720 ml 240 ml IV Total 1100 ml Output Urine Total 1300 ml 1400 ml 1200 ml # Bowel Movements 0 0 Result Diagram: 10/25/17 0641 Other Results Laboratory Tests Test 10/25/17 06:41 Prothromb Time International Ratio 1.1 RATIO Prothrombin Time 11.3 SEC (9.8-11.6) Objective Remarks seen by Dr. Dylan Martin Alfonso cath in place Lumbar dressing mild drainage, no erythema motor +5/5 to LE Neurologically no focal deficit. Assessment & Plan Assessment and Plan pod #20 s/p lumbar spine I&D with MRSA infection: intra-op findings did not show evidence of epidural abscess Unable to replace infusaport by IR 10/23 No headache;recurrent wound drainage; clinically patient looks good Did discuss with the patient today the recommended future care. I discussed with Dr. Nelson Wadsworth of neurosurgery and Dr. Justin Posada of interventional radiology her lumbar spine disorder. It is recommended to repeat MRI scan lumbar spine to ascess CSF fistula and to T12-L2 possible arachnoid cyst. It was discussed that the patient may possibly benefit with a lumbar spine aspiration of T12-L2 intraspinal cyst by interventional radiology. If necessary, probably the beginning of next week, she will have this procedure. continue antibiotics per I.D. ; vanco was stopped due to acute renal failure and cubicin was started, nephrology following Bedrest with no higher than 30 degrees of elevation of bed Coumadin 10 mg today and then 5 mg daily for DVT;no longer need daily Pt/INRs, check twice a week(Sunday,). Await Dietary consult, eval for assistance and management of malnutrition. Ensure plus 1 can TID. Continue alfonso cath. Pt was urinating on herself in bed and there is concern about effect on lumbar spine wound. Medical team evaluating and treating anemia. Shannan Palacios Oct 25, 2017 12:16
--- NOTE | 2017-10-25 15:04 | RADRPT ---
EXAM DATE/TIME: 10/25/2017 13:20 [facility] COMPARISON: MRI LUMBAR SPINE W/O CONTRAST, October 15, 2017, 20:44. INDICATIONS : CSF leak post laminectomy. MEDICAL HISTORY : Hypertension. SURGICAL HISTORY : Cholecystectomy. Tonsillectomy. Hysterectomy. bilateral knee, lumbar laminectomy, rt breast lumpectom y, gastric bypass then reversal ENCOUNTER: Subsequent ACUITY: 1 month PAIN SCORE: 3/10 LOCATION: lower back TECHNIQUE: Multiplanar multisequence MRI of the lumbar spine was performed without contrast. FINDINGS: Again, there is a fluid collection extending from the laminectomy defect at L4-5 into the subcutaneou s tissues in the midline of the back. This collection measures 4.8 cm AP x 6.8 cm transverse x 9.7 cm sagittal. The previously noted CSF collection within the spinal canal extending from T12 inferiorly to L2 appears to have resolved. There is persistent grade I anterolisthesis of L4 in relation to L5. Degenerative disease is noted at L3-4, L4-5 and L5-S1. Moderate circumferential spinal stenosis is no cruzito at L4-5 and mild circumferential spinal stenosis is noted at L3-4 and L5-S1. Moderate bilateral f oraminal narrowing is noted at L4-5 and L5-S1. Moderate right neural foraminal narrowing is noted at L3-4. Facet joint hypertrophy is noted bilaterally from L3 through L5. CONCLUSION: 1. Persistent fluid collection extending from the laminectomy defect at L4-5 into the subcutaneous ti ssues in the midline of the back measures 4.8 cm AP x 6.8 cm TRV x 9.7 cm SAG. 2. Moderate spinal stenosis at L4-5 and mild spinal stenosis at L3-4 and L5-S1. 3. Moderate bilateral foraminal narrowing at L4-5 and L5-S1 and moderate right neural foraminal narro wing at L3-4. 4. Resolution of the previously noted CSF collection in the posterior spinal canal extending from T12 through L2. 5. Grade I anterolisthesis of L4 in relation to L5. 6. Degenerative disc disease L3-4, L4-5 and L5-S1. 7. Facet joint hypertrophy bilaterally from L3 through L5. Gio Verduzco MD on October 25, 2017 at 14:49 Board Certified Radiologist. This report was verified electronically.
--- NOTE | 2017-10-25 15:20 | HHI.IDPN ---
Note Infectious Disease Note Patient went for MRI this morning. Result noted. Patient is awake and alert. She states that the pain goes up to 9/10. Otherwise she feels okay. Has Perez catheter in place which has clear urine. No fever. The function improving. No drainage coming from the incision at the back. 61-year-old black female who recently underwent lumbar spine surgery. The patient was treated for lumbar spine stenosis. She underwent L4-L5 bilateral decompressive hemilaminectomy along with decompression of nerve root and left side L4-L5 repair of dural leak. The patient was discharged from the hospital on September 26. She was taken to surgery and underwent incision and drainage of an lumbar abscess. PAST MEDICAL HISTORY 1. Dyslipidemia, 2. Status post laminectomy for spinal stenosis 3. Appendectomy, 4. Gastric bypass 5. Knee replacement 6. Gastroesophageal reflux disease, 7. Hysterectomy. ALLERGIES NO KNOWN DRUG ALLERGIES. MEDICATION: Current Medications Medications (Trade) Dose Ordered Sig/Kylah Route PRN Reason Start Time Stop Time Status Last Admin Dose Admin Dextrose/Lactated Ringer's 1,000 ml @ 50 mls/hr Q20H IV 10/05/17 12:00 10/25/17 09:56 Sodium Chloride (NS Flush) 5 ml UNSCH PRN IV FLUSH SEE PROTOCOL TABLE 10/05/17 14:00 10/20/17 11:06 Heparin Sodium (Porcine) (Heparin Central Flush) 250 units UNSCH PRN IV FLUSH SEE PROTOCOL TABLE 10/05/17 14:00 10/23/17 13:32 Heparin Sodium (Porcine) (Heparin Central Flush) 500 units UNSCH IV FLUSH 10/05/17 14:00 10/20/17 06:24 Morphine Sulfate (Morphine Inj) 5 mg Q3H PRN IV PUSH BREAKTHROUGH PAIN 10/05/17 17:00 10/25/17 12:10 Acetaminophen/ Hydrocodone Bitart ([place] 7.5-325 Mg) 1 tab Q4H PRN PO PAIN SCALE 1 TO 5 10/05/17 17:00 10/21/17 17:45 Multivitamins/ Minerals Therapeutic (Theragran M Tab) 1 tab BID PO 10/06/17 09:00 12/05/17 08:59 10/25/17 08:07 Ondansetron HCl (Zofran Inj) 4 mg Q6H PRN IV PUSH NAUSEA OR VOMITING 10/05/17 17:00 Al Hydrox/Mg Hydrox/Simethicone (Mag-Al Plus Susp Liq) 30 ml Q6H PRN PO INDIGESTION 10/05/17 17:00 Zolpidem Tartrate (Ambien) 5 mg HS PRN PO SLEEP 10/05/17 21:00 Naloxone HCl (Narcan Inj) 0.4 mg UNSCH PRN IV PUSH RESPIRATORY RATE LESS THAN 10 10/05/17 17:00 Pravastatin Sodium (Pravachol) 40 mg DAILY PO 10/06/17 09:00 Future Hold 10/15/17 08:34 Pantoprazole Sodium (Protonix) 20 mg DAILY PO 10/06/17 09:00 10/25/17 08:07 Acetaminophen/ Hydrocodone Bitart ([place] 7.5-325 Mg) 2 tab Q4HR PRN PO PAIN SCALE 6 TO 10 10/06/17 09:00 10/25/17 10:53 Docusate Sodium (Colace) 100 mg BID PO 10/06/17 09:30 10/25/17 08:07 Acetaminophen (Tylenol) 650 mg Q4H PRN PO fever > 101 10/08/17 02:45 10/13/17 11:31 Lisinopril (Prinivil) 5 mg DAILY PO 10/10/17 09:00 Future Hold 10/15/17 08:34 Ferrous Sulfate (Ferrous Sulfate) 325 mg BID PO 10/10/17 21:00 10/25/17 08:07 Magnesium Hydroxide (Milk Of Magnesia Liq) 30 ml Q6H PRN PO CONSTIPATION 10/14/17 09:45 10/18/17 21:39 Daptomycin 600 mg/ Sodium Chloride 100 ml @ 200 mls/hr Q48H IV 10/18/17 09:00 10/24/17 11:00 Gabapentin (Neurontin) 200 mg TID PO 10/17/17 13:00 10/25/17 12:27 Bisacodyl (Dulcolax Supp) 10 mg DAILY PRN RECTAL CONSTIPATION 10/21/17 12:45 Amlodipine Besylate (Norvasc) 5 mg DAILY PO 10/22/17 11:00 10/25/17 08:07 Clonidine (Catapres) 0.1 mg Q6H PRN PO bp>160/90 10/22/17 10:00 Vancomycin HCl 1000 mg/Sodium Chloride 250 ml @ 250 mls/hr MANAGER DISASTER [employer]OVERY IV 10/23/17 10:30 10/27/17 10:29 10/23/17 11:28 Cefazolin Sodium/ Dextrose 50 ml @ 100 mls/hr MANAGER [employer] IV 10/23/17 10:30 10/27/17 10:29 Warfarin Sodium (Coumadin) 5 mg DAILY@1600 PO 10/26/17 16:00 Warfarin Sodium (Coumadin) 10 mg ONCE ONCE PO 10/25/17 16:00 10/25/17 16:01 Patient Medication Teaching (Coumadin Booklet) 1 ONCE ONCE OTHER 10/25/17 16:00 10/25/17 16:01 Laboratory Tests Test 10/15/17 06:37 Creatinine 2.95 MG/DL Estimat Glomerular Filtration Rate 20 ML/MIN IMAGING: Lumbar Spine MRI 10/25/17 0000 Signed Impressions: Service Date/Time: October 13:20 - CONCLUSION: 1. Persistent fluid collection extending from the laminectomy defect at L4-5 into the subcutaneous tissues in the midline of the back measures 4.8 cm AP x 6.8 cm TRV x 9.7 cm SAG. 2. Moderate spinal stenosis at L4-5 and mild spinal stenosis at L3-4 and L5-S1. 3. Moderate bilateral foraminal narrowing at L4-5 and L5-S1 and moderate right neural foraminal narrowing at L3-4. 4. Resolution of the previously noted CSF collection in the posterior spinal canal extending from T12 through L2. 5. Grade I anterolisthesis of L4 in relation to L5. 6. Degenerative disc disease L3-4, L4-5 and L5-S1. 7. Facet joint hypertrophy bilaterally from L3 through L5. Gio Verduzco MD Venous Access Device Injection 10/23/17 0000 Signed Impressions: Service Date/Time: Monday, October 23, 2017 11:57 - CONCLUSION: 1. The catheter tip port is at the level of the right atria. 2. The patient has complete central venous occlusion. 3. Please see above. Mati Posada MD Venogram 10/23/17 0000 Signed Impressions: Service Date/Time: Monday, October 23, 2017 11:57 - CONCLUSION: 1. The patient has complete fibrotic central venous occlusion and is not a candidate for [id number]-Htik placement in the upper chest. 2. The existing port which is in an appropriate location and can be used for infusion of medications or other indicated products. 3. The existing port was vigorously flushed with 20 cc of saline following this using a slow, deliberate technique blood could be withdrawn if a 3 cc syringe was used. Mati Posada MD Foreign Body Removal 10/19/17 0000 Signed Impressions: Service Date/Time: Thursday, October 19, 2017 10:40 - CONCLUSION: Fibrin sheath stripping of the patient's port. Dipesh Auguste Jr., MD Renal Ultrasound 10/15/17 0000 Signed Impressions: Service Date/Time: Sunday, October 15, 2017 19:52 - CONCLUSION: Image quality is less than optimal secondary to patient body habitus. However, no hydronephrosis or concerning abnormality is identified. Cole Boston MD Chest X-Ray 10/08/17 0000 Signed Impressions: Service Date/Time: Sunday, October 08, 2017 05:16 - CONCLUSION: 1. Low lung volumes with mild patchy bilateral lower lung zone airspace disease, likely atelectasis. Foreign Blancas MD Chest X-Ray 10/08/17 0000 Signed Impressions: Service Date/Time: Sunday, October 08, 2017 05:16 - CONCLUSION: 1. Low lung volumes with mild patchy bilateral lower lung zone airspace disease, likely atelectasis. Foreign Blancas MD PHYSICAL EXAMINATION GENERAL: Awake and alert. No acute distress. HEENT: Extraocular movements grossly intact. No icterus. Oropharynx moist mucosa without lesions. NECK: Supple without adenopathy. LUNGS: Decreased breath sounds. HEART: Regular S1, S2 without murmurs, rubs or gallops. ABDOMEN: Bowel sounds present, soft, no tenderness. BACK: No drainage at the back incision. Sutures in place. EXTREMITIES: No clubbing or cyanosis or edema. SKIN: No rash. NEUROLOGIC: No gross focal findings. PSYCHIATRIC: Calm and cooperative. IMPRESSION 1. Lumbar abscess. MRSA. Post drainage. MRI showing fluid collection extending from the laminectomy defect into the subcutaneous tissues. 2. Postoperative wound infection of the lumbar spine. MRSA. 3. Post laminectomy and repair of epidural tear. 4. Acute kidney disease secondary to vancomycin. Kidney function improving. She appears clinically stable. RECOMMENDATIONS 1. Continue Daptomycin. 2. Continue to monitor renal function 3. Monitor clinical status. 4. Patient evaluated by neurosurgery. Possible drainage of the fluid collection around the lumbar spine. Shukri Naqvi MD Oct 25, 2017 15:20
[2017-10-25 16:00] VITALS: BP 111/57; PULSE 58; RESP 20; TEMP 98.1; O2SAT 97
[2017-10-25] MEDS ORDERED: WARFARIN SOD 10 MG TAB PO ONE (16:00)
[2017-10-25] MEDS: MAGNESIUM HYDROXIDE SUSP 30 ML CUP PO PRN ×2 (16:12→20:25)
--- NOTE | 2017-10-25 17:02 | HHI.PR ---
Subjective Remarks Resting comfortably in bed no acute issue Objective Vitals Vital Signs Date Time Temp Pulse Resp B/P (MAP) Pulse Ox O2 Delivery O2 Flow Rate FiO2 10/25/17 16:00 98.1 58 20 111/57 (75) 97 10/25/17 12:00 97.8 89 19 116/59 (78) 96 10/25/17 08:00 97.8 65 19 144/70 (94) 95 10/25/17 04:00 96.9 62 16 122/64 (83) 95 10/25/17 00:00 97.1 64 16 155/67 (96) 94 10/24/17 21:30 Nasal Cannula 2.00 10/24/17 20:00 97.0 65 16 121/59 (79) 93 I/O 10/24/17 10/24/17 10/24/17 10/25/17 10/25/17 10/25/17 07:00 15:00 23:00 07:00 15:00 23:00 Intake Total 240 ml 1100 ml 720 ml 240 ml Output Total 1300 ml 1400 ml 1200 ml Balance -1060 ml 1100 ml -680 ml -1200 ml 240 ml Intake Oral 240 ml 720 ml 240 ml IV Total 1100 ml Output Urine Total 1300 ml 1400 ml 1200 ml # Bowel Movements 0 0 Result Diagram: 10/25/17 0641 Objective Remarks GENERAL: This is a morbidly obese AA female in no acute distress CARDIOVASCULAR: Regular rate and rhythm without murmurs, gallops, or rubs. RESPIRATORY: Clear to auscultation. Breath sounds equal bilaterally. No wheezes , rales, or rhonchi. GASTROINTESTINAL: Abdomen soft, non-tender, nondistended. Bowel sounds appreciated MUSCULOSKELETAL: Extremities without clubbing, cyanosis, or edema. NEURO: Alert & Oriented x4 to person, place, time, situation. Moves all ext x4 Procedures s/p I&D lumbar epidural abscess A/P Problem List: (1) Abscess in epidural space of lumbar spine ICD Code: G06.1 - Intraspinal abscess and granuloma (2) Gram-positive bacteremia ICD Code: R78.81 - Bacteremia Assessment and Plan 10/21: Continue current care with IV antibiotic, creatinine improved from 2.6- 2.3 follow culture and also/ID recommendation, repeat BMP in a.m. 10/22: Blood pressure is not controlled I will add Norvasc, creatinine improved from 2.3-1.86, monitor blood pressure, repeat BMP in a.m. 10/23: Blood pressure better, port removal and replacement has been attempted by IR but was not successful, patient is not candidate for port placement in the chest 10/24: Creatinine yesterday increased little up to 1.95, will repeat in a.m. if continues to increase again we will reconsult nephrology, per IR night candidate for chest port, continue monitor BMP 10/25: Creatinine gradually trending down and improving 1.47 today, continue current care A/P: 61-year-old female with Abscess in the epidural space of lumbar spine Spiking fevers-resolved s/p irrigation and debridement and redo laminectomy L4-5 by orthopedic surgery Wound positive for MRSA Currently on Cubicin per ID Pain management accordingly Bedrest per Ortho port removal and replacement has been attempted by IR but was not successful, patient is not candidate for port placement in the chest Headache-Resolved Acute renal failure Nephrology input appreciated Renal indices improving Gram-positive bacteremia Currently on Daptomycin Repeat blood culture NTD ID ff Normochromic normocytic anemia Previously transfused 1 unit PRBC, transfused 1 unit 10/19/17 Check Hemoccult and continue to Monitor H&H Continue ferrous sulfate for iron deficiency anemia Hypoalbuminemia The decrease of serum concentrations of Albumin 2/2 acute episode of infection Prealbumin 15 Ensure added to Diet Treat above infection with IV antibiotic per ID Urinary incontinence - UA unremarkable Outpatient follow-up with urology if persist Dyslipidemia --hold statin as patient currently on Cubicin Hypertension - Continue Lisinopril 5mg daily DVT prophylaxis:on Coumadin- per ortho. Discussed with the patient, nurse Rosana Khalil MD Oct 25, 2017 17:02
[2017-10-25 20:00] VITALS: BP 150/68; PULSE 67; RESP 16; TEMP 97.4; O2SAT 94
[2017-10-26] VITALS: BP 102/55; PULSE 58; RESP 16; TEMP 97.4; O2SAT 95
--- NOTE | 2017-10-26 05:38 | PD.ORT.PN ---
Subjective Subjective Remarks POD # 21 Lumbar spine I&D MRSA No c/o of low back pain;no radiating leg pain;no headache Patient states she feels good Discussed with patient results of MRI Scan and discussions with Dr Wadsworth and IR Objective Vitals Vital Signs Date Time Temp Pulse Resp B/P (MAP) Pulse Ox O2 Delivery O2 Flow Rate FiO2 10/26/17 00:00 97.4 58 16 102/55 (71) 95 10/25/17 20:00 97.4 67 16 150/68 (95) 94 10/25/17 16:00 98.1 58 20 111/57 (75) 97 10/25/17 12:00 97.8 89 19 116/59 (78) 96 10/25/17 08:00 97.8 65 19 144/70 (94) 95 I/O 10/25/17 10/25/17 10/25/17 10/26/17 10/26/17 10/26/17 07:00 15:00 23:00 07:00 15:00 23:00 Intake Total 1240 ml 800 ml Output Total 1200 ml 1800 ml Balance -1200 ml 1240 ml -1000 ml Intake Oral 240 ml 800 ml IV Total 1000 ml Output Urine Total 1200 ml 1800 ml # Bowel Movements 0 Result Diagram: 10/25/17 0641 Other Results Laboratory Tests Test 10/25/17 06:41 Prothromb Time International Ratio 1.1 RATIO Prothrombin Time 11.3 SEC (9.8-11.6) Objective Remarks Alfonso cath in place Lumbar dressing mild drainage, no erythema motor +5/5 to LE Neurologically no focal deficit. Assessment & Plan Assessment and Plan pod #20 1 s/p lumbar spine I&D with MRSA infection: intra-op findings did not show evidence of epidural abscess Unable to replace infusaport by IR 3/ No headache;recurrent wound drainage; clinically patient looks good Did discuss with the patient today the recommended future care. I discussed with Dr. Nelson Wadsworth of neurosurgery and Dr. Justin Posada of interventional radiology her lumbar spine disorder. It was discussed that the patient may possibly benefit with a lumbar spine aspiration of T12-L2 intraspinal cyst by interventional radiology. Dr Wadsworth will schedule with IR regarding possible lumbar spine csf drain today. Continue antibiotics per I.D. ; vanco was stopped due to acute renal failure and cubicin was started, nephrology following Bedrest with no higher than 30 degrees of elevation of bed Coumadin 10 mg today and then 5 mg daily for DVT;no longer need daily Pt/INRs, check twice a week(Sunday,). Await Dietary consult, eval for assistance and management of malnutrition. Ensure plus 1 can TID. Continue alfonso cath. Pt was urinating on herself in bed and there is concern about effect on lumbar spine wound. Medical team evaluating and treating anemia. Dylan Martin MD Oct 26, 2017 05:38
[2017-10-26] MEDS: ACETAMINOPHEN/HYDROcodone 325 MG/7.5 MG TAB PO PRN ×4 (07:25→20:08)
[2017-10-26 08:00] VITALS: BP 136/63; PULSE 58; RESP 20; TEMP 98.5; O2SAT 96
[2017-10-26] MEDS: MORPHINE SULFATE 4 MG/ML INJ IV PUSH PRN ×4 (08:38→22:06)
[2017-10-26] MEDS: SODIUM CHLORIDE 0.9% FLUSH 10 ML FLUSH IV FLUSH PRN (08:39)
[2017-10-26] MEDS: MAGNESIUM HYDROXIDE SUSP 30 ML CUP PO PRN (08:41)
[2017-10-26] MEDS: DOCUSATE SODIUM 100 MG CAP PO SCH ×2 (08:41→20:03)
[2017-10-26] MEDS: PANTOPRAZOLE SOD 20 MG DELAYED RELEASE TAB PO SCH (08:41)
[2017-10-26] MEDS: FERROUS SULFATE 325 MG (65 MG ELEMENTAL IRON) TAB PO SCH ×2 (08:41→22:10)
[2017-10-26] MEDS: GABAPENTIN 100 MG CAP PO SCH ×3 (08:41→18:01)
[2017-10-26] MEDS: amLODIPine BESYLATE 5 MG TAB PO SCH (08:41)
[2017-10-26] MEDS: DAPTOmycin INJ 600 MG in SODIUM CHLORIDE 0.9% INJ 100 ML IV SCH (08:42)
[2017-10-26] MEDS: MULTIVITAMINS/MINERALS THERAPEUTIC TAB PO SCH ×2 (08:42→20:04)
[2017-10-26] MEDS: DEXTROSE 5%-LACTATED RING INJ 1,000 ML IV SCH (10:06)
--- NOTE | 2017-10-26 11:15 | HHI.PR ---
Subjective Remarks no cp , no sob afebrile Objective Vitals Vital Signs Date Time Temp Pulse Resp B/P (MAP) Pulse Ox O2 Delivery O2 Flow Rate FiO2 10/26/17 08:40 96 Nasal Cannula 2.00 10/26/17 08:25 18 10/26/17 08:00 98.5 58 20 136/63 (87) 96 10/26/17 00:00 97.4 58 16 102/55 (71) 95 10/25/17 20:00 97.4 67 16 150/68 (95) 94 10/25/17 16:00 98.1 58 20 111/57 (75) 97 10/25/17 12:00 97.8 89 19 116/59 (78) 96 I/O 10/25/17 10/25/17 10/25/17 10/26/17 10/26/17 10/26/17 07:00 15:00 23:00 07:00 15:00 23:00 Intake Total 1240 ml 800 ml 240 ml Output Total 1200 ml 1800 ml 1200 ml Balance -1200 ml 1240 ml -1000 ml -1200 ml 240 ml Intake Oral 240 ml 800 ml 240 ml IV Total 1000 ml Output Urine Total 1200 ml 1800 ml 1200 ml # Bowel Movements 0 Result Diagram: 10/25/17 0641 Objective Remarks GENERAL: This is a morbidly obese AA female in no acute distress CARDIOVASCULAR: Regular rate and rhythm without murmurs, gallops, or rubs. RESPIRATORY: Clear to auscultation. Breath sounds equal bilaterally. No wheezes , rales, or rhonchi. GASTROINTESTINAL: Abdomen soft, non-tender, nondistended. Bowel sounds appreciated MUSCULOSKELETAL: Extremities without clubbing, cyanosis, or edema. NEURO: Alert & Oriented x4 to person, place, time, situation. Moves all ext x4 Procedures s/p I&D lumbar epidural abscess A/P Problem List: (1) Abscess in epidural space of lumbar spine ICD Code: G06.1 - Intraspinal abscess and granuloma (2) Gram-positive bacteremia ICD Code: R78.81 - Bacteremia Assessment and Plan A/P: 61-year-old female with Abscess in the epidural space of lumbar spine Spiking fevers-resolved s/p irrigation and debridement and redo laminectomy L4-5 by orthopedic surgery Wound positive for MRSA Currently on Cubicin per ID Pain management accordingly Bedrest per Ortho port removal and replacement has been attempted by IR but was not successful, patient is not candidate for port placement in the chest Headache-Resolved Acute renal failure>>resolving Nephrology input appreciated Renal indices improving Gram-positive bacteremia Currently on Daptomycin Repeat blood culture NTD ID ff Normochromic normocytic anemia Previously transfused 1 unit PRBC, transfused 1 unit 10/19/17 Check Hemoccult and continue to Monitor H&H Continue ferrous sulfate for iron deficiency anemia Hypoalbuminemia The decrease of serum concentrations of Albumin 2/2 acute episode of infection Prealbumin 15 Ensure added to Diet Treat above infection with IV antibiotic per ID Urinary incontinence - UA unremarkable Outpatient follow-up with urology if persist Dyslipidemia --hold statin as patient currently on Cubicin Hypertension - Continue Lisinopril 5mg daily DVT prophylaxis:on Coumadin- per ortho. Discussed with the patient, nurse Rosana Khalil MD Oct 26, 2017 11:15
[2017-10-26 12:00] VITALS: BP 111/56; PULSE 55; RESP 19; TEMP 97.4; O2SAT 96
[2017-10-26] MEDS: WARFARIN SOD 5 MG TAB PO SCH (15:51)
[2017-10-26 16:00] VITALS: BP 114/57; PULSE 58; RESP 19; TEMP 97.3; O2SAT 95
[2017-10-26 20:00] VITALS: BP 118/62; PULSE 62; RESP 17; TEMP 95.7; O2SAT 95
[2017-10-27] MEDS: ACETAMINOPHEN/HYDROcodone 325 MG/7.5 MG TAB PO PRN ×6 (00:18→22:28)
[2017-10-27 00:26] VITALS: BP 133/60; PULSE 68; RESP 17; TEMP 97.1; O2SAT 95
[2017-10-27] MEDS: MORPHINE SULFATE 4 MG/ML INJ IV PUSH PRN ×5 (02:08→19:51)
[2017-10-27] MEDS: BISACODYL 10 MG SUPP RECTAL PRN (02:33)
[2017-10-27] MEDS: DEXTROSE 5%-LACTATED RING INJ 1,000 ML IV SCH (04:50)
[2017-10-27 08:00] VITALS: BP 121/61; PULSE 60; RESP 16; TEMP 97.2; O2SAT 93
[2017-10-27] MEDS: PANTOPRAZOLE SOD 20 MG DELAYED RELEASE TAB PO SCH (09:35)
[2017-10-27] MEDS: FERROUS SULFATE 325 MG (65 MG ELEMENTAL IRON) TAB PO SCH ×2 (09:35→19:49)
[2017-10-27] MEDS: DOCUSATE SODIUM 100 MG CAP PO SCH ×2 (09:35→19:49)
[2017-10-27] MEDS: DAPTOmycin INJ 900 MG in SODIUM CHLORIDE 0.9% INJ 100 ML IV SCH (09:35)
[2017-10-27] MEDS: GABAPENTIN 100 MG CAP PO SCH ×3 (09:35→16:18)
[2017-10-27] MEDS: MULTIVITAMINS/MINERALS THERAPEUTIC TAB PO SCH ×2 (09:35→19:49)
[2017-10-27] MEDS: amLODIPine BESYLATE 5 MG TAB PO SCH (09:35)
[2017-10-27] MEDS: MAGNESIUM HYDROXIDE SUSP 30 ML CUP PO PRN (09:40)
--- NOTE | 2017-10-27 10:06 | PD.ORT.PN ---
Subjective Subjective Remarks Doing well no c/o no notes from NSG yet Objective Vitals Vital Signs Date Time Temp Pulse Resp B/P (MAP) Pulse Ox O2 Delivery O2 Flow Rate FiO2 10/27/17 08:00 97.2 60 16 121/61 (81) 93 10/27/17 00:26 97.1 68 17 133/60 (84) 95 10/26/17 20:00 95.7 62 17 118/62 (80) 95 10/26/17 20:00 Nasal Cannula 2.00 10/26/17 16:46 18 10/26/17 16:44 17 10/26/17 16:00 97.3 58 19 114/57 (76) 95 10/26/17 12:00 97.4 55 19 111/56 (74) 96 I/O 10/26/17 10/26/17 10/26/17 10/27/17 10/27/17 10/27/17 07:00 15:00 23:00 07:00 15:00 23:00 Intake Total 240 ml 1000 ml 1600 ml Output Total 1200 ml 700 ml 1050 ml Balance -1200 ml 240 ml 300 ml 550 ml Intake Oral 240 ml 1000 ml 600 ml IV Total 1000 ml Output Urine Total 1200 ml 700 ml 1050 ml # Bowel Movements 0 1 Result Diagram: 10/25/17 0641 Objective Remarks Alfonso cath in place Lumbar dressing no drainage, no erythema motor +5/5 to LE Neurologically no focal deficit. Assessment & Plan Assessment and Plan pod #21 1 s/p lumbar spine I&D with MRSA infection: intra-op findings did not show evidence of epidural abscess Unable to replace infusaport by IR 10/23 No headache;recurrent wound drainage; clinically patient looks good Did discuss with the patient today the recommended future care. I discussed with Dr. Nelson Wadsworth of neurosurgery and Dr. Justin Posada of interventional radiology her lumbar spine disorder. It was discussed that the patient may possibly benefit with a lumbar spine aspiration of T12-L2 intraspinal cyst by interventional radiology. Continue antibiotics per I.D. ; vanco was stopped due to acute renal failure and cubicin was started, nephrology following Bedrest with no higher than 30 degrees of elevation of bed Coumadin 5 mg daily for DVT;no longer need daily Pt/INRs, check twice a week( Sunday,). Await Dietary consult, eval for assistance and management of malnutrition. Ensure plus 1 can TID. Continue alfonso cath. Pt was urinating on herself in bed and there is concern about effect on lumbar spine wound. Medical team evaluating and treating anemia. Jaylan Martin MD Oct 27, 2017 10:06
[2017-10-27 10:55] LABS: INTERNATIONAL NORMALIZED RATIO 1.1 RATIO; PROTHROMBIN TIME - PATIENT 11.3 SEC (9.8-11.6)
[2017-10-27 12:00] VITALS: BP 112/56; PULSE 60; RESP 16; TEMP 96.7; O2SAT 93
--- NOTE | 2017-10-27 14:25 | HHI.PR ---
Subjective Remarks F/u anemia. No gross bleeding negative colonoscopy years ago. Complains of stuffy nose and ear pressure no pain. Discussed with nursing Objective Vitals Vital Signs Date Time Temp Pulse Resp B/P (MAP) Pulse Ox O2 Delivery O2 Flow Rate FiO2 10/27/17 12:00 96.7 60 16 112/56 (74) 93 10/27/17 08:00 97.2 60 16 121/61 (81) 93 10/27/17 08:00 Nasal Cannula 2.00 10/27/17 00:26 97.1 68 17 133/60 (84) 95 10/26/17 20:00 95.7 62 17 118/62 (80) 95 10/26/17 20:00 Nasal Cannula 2.00 10/26/17 16:46 18 10/26/17 16:44 17 10/26/17 16:00 97.3 58 19 114/57 (76) 95 I/O 10/26/17 10/26/17 10/26/17 10/27/17 10/27/17 10/27/17 07:00 15:00 23:00 07:00 15:00 23:00 Intake Total 240 ml 1000 ml 1600 ml Output Total 1200 ml 700 ml 1050 ml Balance -1200 ml 240 ml 300 ml 550 ml Intake Oral 240 ml 1000 ml 600 ml IV Total 1000 ml Output Urine Total 1200 ml 700 ml 1050 ml # Bowel Movements 0 1 Result Diagram: 10/25/17 0641 Imaging Last Impressions Lumbar Spine MRI 10/25/17 0000 Signed Impressions: Service Date/Time: October 13:20 - CONCLUSION: 1. Persistent fluid collection extending from the laminectomy defect at L4-5 into the subcutaneous tissues in the midline of the back measures 4.8 cm AP x 6.8 cm TRV x 9.7 cm SAG. 2. Moderate spinal stenosis at L4-5 and mild spinal stenosis at L3-4 and L5-S1. 3. Moderate bilateral foraminal narrowing at L4-5 and L5-S1 and moderate right neural foraminal narrowing at L3-4. 4. Resolution of the previously noted CSF collection in the posterior spinal canal extending from T12 through L2. 5. Grade I anterolisthesis of L4 in relation to L5. 6. Degenerative disc disease L3-4, L4-5 and L5-S1. 7. Facet joint hypertrophy bilaterally from L3 through L5. Gio Verduzco MD Venous Access Device Injection 10/23/17 0000 Signed Impressions: Service Date/Time: Monday, October 23, 2017 11:57 - CONCLUSION: 1. The catheter tip port is at the level of the right atria. 2. The patient has complete central venous occlusion. 3. Please see above. Mati Posada MD Venogram 10/23/17 0000 Signed Impressions: Service Date/Time: Monday, October 23, 2017 11:57 - CONCLUSION: 1. The patient has complete fibrotic central venous occlusion and is not a candidate for Knivhf-m-Yupi placement in the upper chest. 2. The existing port which is in an appropriate location and can be used for infusion of medications or other indicated products. 3. The existing port was vigorously flushed with 20 cc of saline following this using a slow, deliberate technique blood could be withdrawn if a 3 cc syringe was used. Mati Posada MD Foreign Body Removal 10/19/17 0000 Signed Impressions: Service Date/Time: Thursday, October 19, 2017 10:40 - CONCLUSION: Fibrin sheath stripping of the patient's port. Dipesh Auguste Jr., MD Renal Ultrasound 10/15/17 0000 Signed Impressions: Service Date/Time: Sunday, October 15, 2017 19:52 - CONCLUSION: Image quality is less than optimal secondary to patient body habitus. However, no hydronephrosis or concerning abnormality is identified. Cole Boston MD Chest X-Ray 10/08/17 0000 Signed Impressions: Service Date/Time: Sunday, October 08, 2017 05:16 - CONCLUSION: 1. Low lung volumes with mild patchy bilateral lower lung zone airspace disease, likely atelectasis. Foreign Blancas MD Objective Remarks GENERAL: This is a morbidly obese AA female in no acute distress Tympanic membrane intact with no evidence of infection CARDIOVASCULAR: Regular rate and rhythm without murmurs, gallops, or rubs. RESPIRATORY: Clear to auscultation. Breath sounds equal bilaterally. No wheezes , rales, or rhonchi. GASTROINTESTINAL: Abdomen soft, non-tender, nondistended. Bowel sounds appreciated MUSCULOSKELETAL: Extremities without clubbing, cyanosis, or edema. NEURO: Alert & Oriented x4 to person, place, time, situation. Moves all ext x4 Procedures s/p I&D lumbar epidural abscess Urinary Catheter: Yes Assessment to: Continue Perez insert reason: Surgical/Invasive Proced Date of Insertion: Oct 05, 2017 A/P Problem List: (1) Abscess in epidural space of lumbar spine ICD Code: G06.1 - Intraspinal abscess and granuloma (2) Gram-positive bacteremia ICD Code: R78.81 - Bacteremia Assessment and Plan 62-year-old female with Abscess in the epidural space of lumbar spine Spiking fevers-resolved s/p irrigation and debridement and redo laminectomy L4-5 by orthopedic surgery Wound positive for MRSA Currently on Cubicin per ID. Check CK Pain management with Lortab and morphine sulfate consult regarding narcotics Bedrest per Ortho Continue Perez catheter per orthopedic recommendations secondary to surgical procedure port removal and replacement has been attempted by IR but was not successful, patient is not candidate for port placement in the chest secondary to fibrosis Headache-Resolved Acute renal failure>>resolving Nephrology input appreciated Renal indices improving Staph hominis and coag negative bacteremia. Resolved Currently on Daptomycin Repeat blood culture NTD ID ff Normochromic normocytic anemia likely secondary to infection Previously transfused 1 unit PRBC, transfused 1 unit 10/19/17 Negative Hemoccult 1 Continue ferrous sulfate for iron deficiency anemia Hypoalbuminemia The decrease of serum concentrations of Albumin 2/2 acute episode of infection Prealbumin 15 Ensure added to Diet Treat above infection with IV antibiotic per ID Urinary incontinence - UA unremarkable Outpatient follow-up with urology if persist Dyslipidemia --hold statin as patient currently on Cubicin Hypertension - Continue Lisinopril 5mg daily Allergies. Flonase DVT prophylaxis:on Coumadin- per ortho. Josr Murcia MD Oct 27, 2017 14:25
[2017-10-27] MEDS: FLUTICASONE PROPIONATE 50 MCG/ACT 16 GM NASAL SPRAY NASAL SCH (14:30)
[2017-10-27 16:00] VITALS: BP 122/61; PULSE 58; RESP 16; TEMP 97.7; O2SAT 94
[2017-10-27] MEDS: WARFARIN SOD 5 MG TAB PO SCH (16:18)
--- NOTE | 2017-10-27 19:47 | PD.CONS ---
History of Present Illness Service Neurosurgery Consult Requested By Orthopedic surgery Reason for Consult Postoperative CSF fistula Primary Care Physician Cole Villa MD Diagnoses: History of Present Illness 62-year-old female with history of lumbar stenosis underwent L4 5 decompressive hemilaminectomy, bilateral foraminotomy, repair of small dural leak left L4 5 level with DuraGen and fibrin glue on 09/24/2017. She was discharged in stable condition with home health care. She presented to the emergency room 10/01/17 with some leaking from the incision site. No fevers reported. She was kept at flat bedrest. Due to persistent CSF leak, she underwent irrigation and debridement and drainage of abscess at the L4 5 level on 2017. She was seen by infectious disease, , started on vancomycin with initial cultures indicating MRSA. Vancomycin was initially discontinued and changed to daptomycin due to acute renal failure. She was placed back on bed rest postoperatively, started out of bed with therapy from 10/12/2017 until 10/16/2017 when she was noted to have persistent fluid leakage at the incision site. She has been back at bed rest since then. An MRI on 10/15/2017 revealed some fluid tracking up along the posterior spinal canal from L4 5 laminectomy site to the thoracolumbar junction. Approximately 3 x 12 cm fluid collection in the mid to upper lumbar midline extending towards the skin surface. The patient was briefly examined by the undersigned initially on 10/24/2017 at which time she was noted to have very minimal drainage from the upper aspect of the midline lumbar incision was otherwise dry and intact incision, intact lower extremity motor function, and MRI reviewed. Findings were discussed with orthopedic surgery as well as radiology with plans for follow-up MRI scan in order to determine any progression of the fluid collection within the spinal canal prior to consideration of lumbar subarachnoid drain. Follow-up MRI of the lumbar spine 10/25/2017 has been completed and reveals resolution of the probable intradural fluid collection, with moderate persistent soft tissue fluid collection in the mid to upper lumbar region. Ms. Malloy complains of intermittent moderate low back pain. She has mild numbness in the lower extremities which she states is relatively chronic. No significant radiating pain in the lower extremities. No complaining of bowel or bladder dysfunction. No complaining of fevers or chills. No significant headache. No blurred vision or diplopia. 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; (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 Past Medical History GERD Dyslipidemia No history of significant cardiac, pulmonary, diabetes, hypertension Past Surgical History Lumbar laminectomy Appendectomy Gastric bypass Hysterectomy Reported Medications Reported Meds & Active Scripts Active Brokaw (Hydrocodone-Acetaminophen) 7.5-325 mg Tab 1-2 Tab PO Q6H PRN Walker with Front Wheels (Device) 1 Mis Mis Ea .ROUTE DIRECTED Reported Pravastatin 40 Mg Tab 40 Mg PO DAILY Omeprazole 20 Mg Tab 20 Mg PO DAILY Family History Negative cancer, cardiac disease Social History She smokes cigarettes No alcohol Physical Exam Vital Signs Vital Signs Date Time Temp Pulse Resp B/P (MAP) Pulse Ox O2 Delivery O2 Flow Rate FiO2 10/27/17 16:00 97.7 58 16 122/61 (81) 94 10/27/17 12:00 96.7 60 16 112/56 (74) 93 10/27/17 08:00 97.2 60 16 121/61 (81) 93 10/27/17 08:00 Nasal Cannula 2.00 10/27/17 00:26 97.1 68 17 133/60 (84) 95 10/26/17 20:00 95.7 62 17 118/62 (80) 95 10/26/17 20:00 Nasal Cannula 2.00 Physical Exam GENERAL: Moderately obese lady in no apparent distress SKIN: Lumbar incision and dressing, presently dry. Incision intact. No significant erythema or tenderness or edema. EYES: Sclerae are clear and nonicteric ENT: Oropharynx clear. Poor dentition NECK: Neck nontender, no lymphadenopathy. Normal range of motion. CARDIOVASCULAR: Pulse regular RESPIRATORY: Regular nonlabored GASTROINTESTINAL: Abdomen soft, non-tender, nondistended. No hepato-splenomegaly , or palpable masses. No guarding. MUSCULOSKELETAL: Mild distal lower extremity edema. Posterior tibial pulses 2+ bilateral. No atrophy or fasciculations in the upper or lower extremities. No significant hip pain with range of motion. Mild knee discomfort with range of motion. NEUROLOGICAL: Alert, oriented conversant appropriate No anxiety or depression evidence Reasonable judgment and insight Follows commands well Extraocular movements and facial motor movement symmetric Sensation intact light touch upper extremities and mildly diminished somewhat diffuse distal lower extremities light touch Strength within normal limits major flexion-extension groups all extremities as well as inversion/eversion right and left foot with some guarding and mild breakaway weakness with distal lower extremity motor testing with complaint of some back and leg discomfort. Diogenes's response has some bilateral No ankle clonus Laboratory Laboratory Tests Test 10/27/17 10:29 10/27/17 16:45 Prothrombin Time 11.3 Prothromb Time International Ratio 1.1 Total Creatine Kinase 165 Date/Time Source Procedure Growth Status 10/09/17 13:55 Blood Peripheral Aerobic Blood Culture - Final NO GROWTH IN 5 DAYS Complete 10/09/17 13:55 Blood Peripheral Anaerobic Blood Culture - Final NO GROWTH IN 5 DAYS Complete 10/21/17 18:37 Stool Stool Stool Occult Blood (EBER) - Final HEMOCCULT NEGATIVE Complete 10/12/17 13:50 Wound Back Gram Stain - Final Complete 10/12/17 13:50 Wound Culture - Final S. Aureus Mrsa Complete Result Diagram: 10/25/17 0641 Imaging 10/25/2017 MRI lumbar spine images reviewed by the undersigned and compared to previous study. There is resolution of the previous apparent intradural fluid collection extending from the L4 5 up to the thoracolumbar junction region. Moderate persistent primarily midline soft tissue fluid collection at the mid upper lumbar region extending towards the skin surface. Lumbar Spine MRI 10/25/17 0000 Signed Impressions: Service Date/Time: October 13:20 - CONCLUSION: 1. Persistent fluid collection extending from the laminectomy defect at L4-5 into the subcutaneous tissues in the midline of the back measures 4.8 cm AP x 6.8 cm TRV x 9.7 cm SAG. 2. Moderate spinal stenosis at L4-5 and mild spinal stenosis at L3-4 and L5-S1. 3. Moderate bilateral foraminal narrowing at L4-5 and L5-S1 and moderate right neural foraminal narrowing at L3-4. 4. Resolution of the previously noted CSF collection in the posterior spinal canal extending from T12 through L2. 5. Grade I anterolisthesis of L4 in relation to L5. 6. Degenerative disc disease L3-4, L4-5 and L5-S1. 7. Facet joint hypertrophy bilaterally from L3 through L5. Gio Verduzco MD Venous Access Device Injection 10/23/17 0000 Signed Impressions: Service Date/Time: Monday, October 23, 2017 11:57 - CONCLUSION: 1. The catheter tip port is at the level of the right atria. 2. The patient has complete central venous occlusion. 3. Please see above. Mati Posada MD Venogram 10/23/17 0000 Signed Impressions: Service Date/Time: Monday, October 23, 2017 11:57 - CONCLUSION: 1. The patient has complete fibrotic central venous occlusion and is not a candidate for Csmozv-j-Xfuy placement in the upper chest. 2. The existing port which is in an appropriate location and can be used for infusion of medications or other indicated products. 3. The existing port was vigorously flushed with 20 cc of saline following this using a slow, deliberate technique blood could be withdrawn if a 3 cc syringe was used. Mati Posada MD Foreign Body Removal 10/19/17 0000 Signed Impressions: Service Date/Time: Thursday, October 19, 2017 10:40 - CONCLUSION: Fibrin sheath stripping of the patient's port. Dipesh Auguste Jr., MD Renal Ultrasound 10/15/17 0000 Signed Impressions: Service Date/Time: Sunday, October 15, 2017 19:52 - CONCLUSION: Image quality is less than optimal secondary to patient body habitus. However, no hydronephrosis or concerning abnormality is identified. Cole Boston MD Chest X-Ray 10/08/17 0000 Signed Impressions: Service Date/Time: Sunday, October 08, 2017 05:16 - CONCLUSION: 1. Low lung volumes with mild patchy bilateral lower lung zone airspace disease, likely atelectasis. Foreign Blancas MD Assessment and Plan Assessment and Plan Impression: 1. Evidence of persistent postlaminectomy CSF leak. There is actually very little leakage from the incision site with the patient at bed rest. No evidence of active infection based on follow-up MRI, vital signs, laboratory results. Recommendations: Findings were discussed at length with the patient. Discussed with radiology and orthopedics over the past 2 days. With resolution of the intradural fluid collection and improvement in the white count with no fevers, a lumbar subarachnoid drain placement above the previous operative site be considered following a preliminary evacuation of the soft tissue fluid collection to make certain that the infection is totally resolved. After discussion with radiology, plan is to proceed with above interventions on 10/29/17. Patient is on Coumadin which will need to be held prior to the procedures. I also discussed with her the potential option of surgical reexploration and direct primary repair of the dural tear. She would like to try to treat this initially with the lumbar subarachnoid drain and more conservative measures, particularly since there is very little fluid drainage from the incision over the past few days. Nelson Wadsworth MD Oct 27, 2017 19:47
[2017-10-27 20:00] VITALS: BP 119/59; PULSE 89; RESP 18; TEMP 97.3; O2SAT 94
[2017-10-28] VITALS: BP 108/66; PULSE 63; RESP 18; TEMP 98.4; O2SAT 94
[2017-10-28] MEDS: DEXTROSE 5%-LACTATED RING INJ 1,000 ML IV SCH ×2 (01:45→20:00)
[2017-10-28] MEDS: MORPHINE SULFATE 4 MG/ML INJ IV PUSH PRN ×4 (01:47→19:57)
[2017-10-28] MEDS: ACETAMINOPHEN/HYDROcodone 325 MG/7.5 MG TAB PO PRN ×4 (06:13→22:46)
[2017-10-28] MEDS ORDERED: WARFARIN SOD 5 MG TAB PO ONE (07:45)
[2017-10-28 08:00] VITALS: BP 136/60; PULSE 70; RESP 16; TEMP 97.3; O2SAT 92
[2017-10-28] MEDS: FLUTICASONE PROPIONATE 50 MCG/ACT 16 GM NASAL SPRAY NASAL SCH (09:00)
[2017-10-28] MEDS: amLODIPine BESYLATE 5 MG TAB PO SCH (09:00)
[2017-10-28] MEDS: PANTOPRAZOLE SOD 20 MG DELAYED RELEASE TAB PO SCH (09:00)
[2017-10-28] MEDS: MULTIVITAMINS/MINERALS THERAPEUTIC TAB PO SCH ×2 (09:00→19:57)
[2017-10-28] MEDS: DAPTOmycin INJ 900 MG in SODIUM CHLORIDE 0.9% INJ 100 ML IV SCH (09:00)
[2017-10-28] MEDS: DOCUSATE SODIUM 100 MG CAP PO SCH ×2 (09:00→19:58)
[2017-10-28 12:00] VITALS: BP 126/58; PULSE 65; RESP 17; TEMP 97; O2SAT 96
[2017-10-28] MEDS: FERROUS SULFATE 325 MG (65 MG ELEMENTAL IRON) TAB PO SCH ×2 (12:31→19:57)
[2017-10-28] MEDS: GABAPENTIN 100 MG CAP PO SCH ×3 (12:31→16:28)
[2017-10-28] MEDS: BISACODYL 10 MG SUPP RECTAL PRN (14:42)
--- NOTE | 2017-10-28 14:47 | HHI.PR ---
Subjective Remarks Follow-up constipation. Complains of gas pain and continues to have no BM. Denies nausea. She is passing gas. Discussed with RN, will give Dulcolax. Patient also agrees with plan procedure tomorrow with interventional radiology. Objective Vitals Vital Signs Date Time Temp Pulse Resp B/P (MAP) Pulse Ox O2 Delivery O2 Flow Rate FiO2 10/28/17 12:00 97.0 65 17 126/58 (80) 96 10/28/17 08:00 Nasal Cannula 2.00 10/28/17 08:00 97.3 70 16 136/60 (85) 92 10/28/17 00:00 98.4 63 18 108/66 (80) 94 10/27/17 23:57 Nasal Cannula 2.00 10/27/17 20:00 97.3 89 18 119/59 (79) 94 10/27/17 16:00 97.7 58 16 122/61 (81) 94 I/O 10/27/17 10/27/17 10/27/17 10/28/17 10/28/17 10/28/17 07:00 15:00 23:00 07:00 15:00 23:00 Intake Total 1600 ml 960 ml 1500 ml Output Total 1050 ml 2200 ml 1000 ml Balance 550 ml -1240 ml 500 ml Intake Oral 600 ml 960 ml 500 ml IV Total 1000 ml 1000 ml Output Urine Total 1050 ml 2200 ml 1000 ml # Bowel Movements 1 1 0 Result Diagram: 10/25/17 0641 Imaging Last Impressions Lumbar Spine MRI 10/25/17 0000 Signed Impressions: Service Date/Time: October 13:20 - CONCLUSION: 1. Persistent fluid collection extending from the laminectomy defect at L4-5 into the subcutaneous tissues in the midline of the back measures 4.8 cm AP x 6.8 cm TRV x 9.7 cm SAG. 2. Moderate spinal stenosis at L4-5 and mild spinal stenosis at L3-4 and L5-S1. 3. Moderate bilateral foraminal narrowing at L4-5 and L5-S1 and moderate right neural foraminal narrowing at L3-4. 4. Resolution of the previously noted CSF collection in the posterior spinal canal extending from T12 through L2. 5. Grade I anterolisthesis of L4 in relation to L5. 6. Degenerative disc disease L3-4, L4-5 and L5-S1. 7. Facet joint hypertrophy bilaterally from L3 through L5. Gio Verduzco MD Venous Access Device Injection 10/23/17 0000 Signed Impressions: Service Date/Time: Monday, October 23, 2017 11:57 - CONCLUSION: 1. The catheter tip port is at the level of the right atria. 2. The patient has complete central venous occlusion. 3. Please see above. Mati Posada MD Venogram 10/23/17 0000 Signed Impressions: Service Date/Time: Monday, October 23, 2017 11:57 - CONCLUSION: 1. The patient has complete fibrotic central venous occlusion and is not a candidate for Jhmrpw-g-Fwsi placement in the upper chest. 2. The existing port which is in an appropriate location and can be used for infusion of medications or other indicated products. 3. The existing port was vigorously flushed with 20 cc of saline following this using a slow, deliberate technique blood could be withdrawn if a 3 cc syringe was used. Mati Posada MD Foreign Body Removal 10/19/17 0000 Signed Impressions: Service Date/Time: Thursday, October 19, 2017 10:40 - CONCLUSION: Fibrin sheath stripping of the patient's port. Dipesh Auguste Jr., MD Renal Ultrasound 10/15/17 0000 Signed Impressions: Service Date/Time: Sunday, October 15, 2017 19:52 - CONCLUSION: Image quality is less than optimal secondary to patient body habitus. However, no hydronephrosis or concerning abnormality is identified. Cole Boston MD Chest X-Ray 10/08/17 0000 Signed Impressions: Service Date/Time: Sunday, October 08, 2017 05:16 - CONCLUSION: 1. Low lung volumes with mild patchy bilateral lower lung zone airspace disease, likely atelectasis. Foreign Blancas MD Objective Remarks GENERAL: This is a morbidly obese AA female in no acute distress Tympanic membrane intact with no evidence of infection CARDIOVASCULAR: Regular rate and rhythm without murmurs, gallops, or rubs. RESPIRATORY: Clear to auscultation. Breath sounds equal bilaterally. No wheezes , rales, or rhonchi. GASTROINTESTINAL: Abdomen soft, non-tender, nondistended. Bowel sounds appreciated MUSCULOSKELETAL: Extremities without clubbing, cyanosis, or edema. NEURO: Alert & Oriented x4 to person, place, time, situation. Moves all ext x4 Procedures s/p I&D lumbar epidural abscess Date of Insertion: Oct 05, 2017 A/P Problem List: (1) Abscess in epidural space of lumbar spine ICD Code: G06.1 - Intraspinal abscess and granuloma (2) Gram-positive bacteremia ICD Code: R78.81 - Bacteremia Assessment and Plan 62-year-old female with Abscess in the epidural space of lumbar spine Spiking fevers-resolved s/p irrigation and debridement and redo laminectomy L4-5 by orthopedic surgery Wound positive for MRSA Currently on Cubicin per ID. Check CK Pain management with Lortab and morphine sulfate consult regarding narcotics Bedrest per Ortho Continue Perez catheter per orthopedic recommendations secondary to surgical procedure port removal and replacement has been attempted by IR but was not successful, patient is not candidate for port placement in the chest secondary to fibrosis IR for lumbar subarachnoid drain placement above the previous operative site following a preliminary evacuation of the soft tissue fluid collection to make certain that the infection is totally resolved. Will hold Headache-Resolved Acute renal failure>>resolving Nephrology input appreciated Renal indices improving Staph hominis and coag negative bacteremia. Resolved Currently on Daptomycin Repeat blood culture NTD ID ff Normochromic normocytic anemia likely secondary to infection Previously transfused 1 unit PRBC, transfused 1 unit 10/19/17 Negative Hemoccult 1 Continue ferrous sulfate for iron deficiency anemia Hypoalbuminemia The decrease of serum concentrations of Albumin 2/2 acute episode of infection Prealbumin 15 Ensure added to Diet Treat above infection with IV antibiotic per ID Urinary incontinence - UA unremarkable Outpatient follow-up with urology if persist Dyslipidemia --hold statin as patient currently on Cubicin Hypertension - Continue Lisinopril 5mg daily Allergies. Flonase DVT prophylaxis:on Coumadin (held for IR procedure in the morning) per ortho. Josr Murcia MD Oct 28, 2017 14:47
[2017-10-28 16:00] VITALS: BP 166/72; PULSE 68; RESP 18; TEMP 96.4; O2SAT 96
--- NOTE | 2017-10-28 16:14 | HHI.NSPN ---
History Chief Complaint: no headache Interval History She has not noted any drainage from the incision over the past day. Her dressing was changed per nursing staff just prior to my visit today and was relatively dry without significant drainage. Exam Results Vital Signs Date Time Temp Pulse Resp B/P (MAP) Pulse Ox O2 Delivery O2 Flow Rate FiO2 10/28/17 12:00 97.0 65 17 126/58 (80) 96 10/28/17 08:00 Nasal Cannula 2.00 Intake and Output 10/28/17 10/28/17 10/29/17 08:00 16:00 00:00 Intake Total 1500 ml Output Total 1000 ml Balance 500 ml Physical Examination Awake and alert No evidence of anxiety or depression Sensation intact throughout the upper and lower extremities except for mild paresthesias distal lower extremities which she states is chronic. Strength is normal major flexion-extension groups all extremities Her dressing is dry and intact on the lumbar spine Medical Decision Making Impression and Plan Impression: 1. Postoperative CSF leak. There is actually very minimal drainage from the incision over the past few days. Previous fluid collection within the subdural space resolved on most recent MRI. No evidence of active infection. Recommendations: Findings were discussed with the patient. Options of further conservative treatment and observation, lumbar subarachnoid drain, and reexploration of the wound sites have all been discussed. That she has very minimal residual fluid leakage, it would seem reasonable to proceed initially with lumbar subarachnoid drain placement. She is in agreement with this. Plan is for lumbar subarachnoid drain placement on 10/29/17. Previously discussed with radiology. Nelson Wadsowrth MD Oct 28, 2017 16:14
[2017-10-28 20:00] VITALS: BP 138/62; PULSE 65; RESP 18; TEMP 96.6; O2SAT 93
[2017-10-29] VITALS (13 sets, daily range): BP systolic 97–146; BP diastolic 51–78; PULSE 57–80; RESP 16–18; TEMP 96.3–98.7; O2SAT 92–100
[2017-10-29] MEDS: MORPHINE SULFATE 4 MG/ML INJ IV PUSH PRN ×4 (00:12→22:23)
[2017-10-29] MEDS: ACETAMINOPHEN/HYDROcodone 325 MG/7.5 MG TAB PO PRN ×3 (06:20→16:30)
[2017-10-29] MEDS: amLODIPine BESYLATE 5 MG TAB PO SCH (09:20)
[2017-10-29] MEDS: FERROUS SULFATE 325 MG (65 MG ELEMENTAL IRON) TAB PO SCH ×2 (09:20→22:22)
[2017-10-29] MEDS: PANTOPRAZOLE SOD 20 MG DELAYED RELEASE TAB PO SCH (09:20)
[2017-10-29] MEDS: MULTIVITAMINS/MINERALS THERAPEUTIC TAB PO SCH ×2 (09:20→22:22)
[2017-10-29] MEDS: DOCUSATE SODIUM 100 MG CAP PO SCH ×2 (09:21→22:22)
[2017-10-29] MEDS: GABAPENTIN 100 MG CAP PO SCH ×3 (09:21→17:59)
[2017-10-29] MEDS: DAPTOmycin INJ 900 MG in SODIUM CHLORIDE 0.9% INJ 100 ML IV SCH (09:21)
[2017-10-29] MEDS: FLUTICASONE PROPIONATE 50 MCG/ACT 16 GM NASAL SPRAY NASAL SCH (09:21)
[2017-10-29] MEDS ORDERED: MIDAZOLAM HCL 2 MG/2 ML VIAL ONE ×2 (09:25)
[2017-10-29] MEDS ORDERED: fentaNYL CITRATE 250 MCG/5 ML AMP ONE (09:25)
--- NOTE | 2017-10-29 10:44 | PD.RAD ---
Post Procedure Progress Note Pre Procedure Diagnosis: (1) Morbid obesity with BMI of 40.0-44.9, adult Post Procedure Diagnosis: (1) Morbid obesity with BMI of 40.0-44.9, adult Procedure Date: Oct 29, 2017 Supervising Radiologist: Foreign Blancas Proceduralist/Assist: Agueda Gallagher, RT(R)(), Lit Jones RT(R) Anesthesia: Conscious Sedation Plan of Activity Patient to Unit: ROPU Patient Condition: Good See PACS Report for procedural detail/treatment Foreign Blancas MD Oct 29, 2017 10:44
[2017-10-29 11:34] LABS: TOTAL PROTEIN,CSF 31.4 MG/DL (15.0-45.0)
[2017-10-29 12:13] LABS: SUPERNATE COLOR TUBE #1 CLEAR (CLEAR)
[2017-10-29 12:17] LABS: CSF LYMPHOCYTES 80 %; CSF MONOCYTES 20 %
[2017-10-29 12:18] LABS: CSF NEUTROPHILS 0 %; RBC TUBE #4 10 /MM3; WBC TUBE #4 8 /MM3 (0-10)
--- NOTE | 2017-10-29 12:40 | RADRPT ---
EXAM DATE/TIME: 10/29/2017 09:12 [place] COMPARISON: No previous studies available for comparison. INDICATIONS : Patient presents with cerebral spinal fluid leak post laminectomy in need of lumbar drain placement. MEDICAL HISTORY : HTN Gastroesophageal reflux disease PAD Heart failure SURGIAL HISTORY : Appendectomy Hysterectomy Bilateral knee Lumbar laminectomy RT breast lumpectomy Gastric bypass then reversal Cholecystectomy Tonsillectomy ENCOUNTER: Initial ACUITY: 1 month PAIN SCORE: 3/10 LOCATION: lower back LUMBAR PUNCTURE TIME: 1028 hours FLUORO TIME: 2.1 minutes IMAGE SERIES: 3 SEDATION TIME: 40 minutes LEVEL: Tip of lumbar drain was placed at T12 FLUID: 13 cc of clear CSF was collected and sent to the laboratory for analysis. MEDICATION(S): 1.) 3.5 mg midazolam (Versed) IV 2.) 200 mcg fentanyl (Sublimaze) IV DEVICE(S): 1.) 5 Vietnamese lumbar drain catheter PROCEDURE : 1. Fluoroscopically guided lumbar drain placement. 2. Conscious sedation with continuous EKG and oximetry monitoring. The risks, benefits and alternatives to the procedure were explained and verbal and written consent w as obtained. The site was prepped in sterile fashion. Full sterile technique was used, including ca p, mask, sterile gloves and gown and a large sterile sheet. Hand hygiene and 2% chlorhexidine and/or betadine/alcohol prep was utilized per protocol for cutaneous antisepsis. The skin and subcutaneous tissues were infiltrated with local anesthetic solution. No L2-L3 sublaminar window without going through patient's incision. L3-4 right sublaminar approach w as first attempted despite a very limited sublaminar window. The left sublaminar window is through th e patient's incision. Despite multiple attempts, the 14 gauge needle could not be advanced into the t hecal sac. Therefore, L4-5 access was attempted. With fluoroscopic guidance the lumbar thecal sac was punctured with a 14 gauge Touhy needle and a lumbar drain was placed with its tip at the level as de scribed above and the catheter was sutured in place. CSF was identified returning from the catheter a t the termination of the procedure. Conscious sedation was performed with the prescribed dosages and duration as above in the presence of an independent trained radiology nurse to assist in the monitoring of the patient. EKG and oximetry remained stable throughout the procedure. The patient tolerated the procedure well and there were n o complications. The patient was sent to post anesthesia recovery in stable condition. CONCLUSION: Uncomplicated lumbar drain placement as above. Foreign Blancas MD on October 29, 2017 at 11:53 Board Certified Radiologist. This report was verified electronically.
--- NOTE | 2017-10-29 15:47 | HHI.PR ---
Subjective Remarks Follow-up CSF leak. Patient tolerated drain placement. States she had a good bowel movement yesterday. Discussed with nursing Objective Vitals Vital Signs Date Time Temp Pulse Resp B/P (MAP) Pulse Ox O2 Delivery O2 Flow Rate FiO2 10/29/17 14:30 58 16 141/70 (93) 100 10/29/17 14:00 59 16 146/78 (100) 100 10/29/17 13:30 59 16 146/77 (100) 100 10/29/17 13:00 58 16 121/68 (85) 100 10/29/17 12:30 59 16 97/51 (66) 100 10/29/17 11:55 57 16 107/69 (82) 100 10/29/17 11:25 80 16 113/58 (76) 100 10/29/17 11:10 80 16 116/62 (80) 100 10/29/17 10:55 97.5 63 16 115/66 (82) 100 10/29/17 08:00 96.3 63 16 139/64 (89) 99 10/29/17 08:00 Nasal Cannula 2.00 10/29/17 00:00 97.6 68 18 121/59 (79) 94 10/28/17 20:00 96.6 65 18 138/62 (87) 93 10/28/17 16:00 96.4 68 18 166/72 (103) 96 I/O 10/28/17 10/28/17 10/28/17 10/29/17 10/29/17 10/29/17 07:00 15:00 23:00 07:00 15:00 23:00 Intake Total 1500 ml 2320 ml 840 ml Output Total 1000 ml 2700 ml 2200 ml Balance 500 ml -380 ml -1360 ml Intake Oral 500 ml 1320 ml 840 ml IV Total 1000 ml 1000 ml Output Urine Total 1000 ml 2700 ml 2200 ml # Bowel Movements 0 1 0 Result Diagram: 10/25/17 0641 Imaging Last Impressions Lumbar Puncture Fluoroscopy 10/29/17 0000 Signed Impressions: Service Date/Time: Sunday, October 29, 2017 09:12 - CONCLUSION: Uncomplicated lumbar drain placement as above. Foreign Blancas MD Lumbar Spine MRI 10/25/17 0000 Signed Impressions: Service Date/Time: October 13:20 - CONCLUSION: 1. Persistent fluid collection extending from the laminectomy defect at L4-5 into the subcutaneous tissues in the midline of the back measures 4.8 cm AP x 6.8 cm TRV x 9.7 cm SAG. 2. Moderate spinal stenosis at L4-5 and mild spinal stenosis at L3-4 and L5-S1. 3. Moderate bilateral foraminal narrowing at L4-5 and L5-S1 and moderate right neural foraminal narrowing at L3-4. 4. Resolution of the previously noted CSF collection in the posterior spinal canal extending from T12 through L2. 5. Grade I anterolisthesis of L4 in relation to L5. 6. Degenerative disc disease L3-4, L4-5 and L5-S1. 7. Facet joint hypertrophy bilaterally from L3 through L5. Gio Verduzco MD Venous Access Device Injection 10/23/17 0000 Signed Impressions: Service Date/Time: Monday, October 23, 2017 11:57 - CONCLUSION: 1. The catheter tip port is at the level of the right atria. 2. The patient has complete central venous occlusion. 3. Please see above. Mati Posada MD Venogram 10/23/17 0000 Signed Impressions: Service Date/Time: Monday, October 23, 2017 11:57 - CONCLUSION: 1. The patient has complete fibrotic central venous occlusion and is not a candidate for Jaqlqr-a-Wezk placement in the upper chest. 2. The existing port which is in an appropriate location and can be used for infusion of medications or other indicated products. 3. The existing port was vigorously flushed with 20 cc of saline following this using a slow, deliberate technique blood could be withdrawn if a 3 cc syringe was used. Mati Posada MD Foreign Body Removal 10/19/17 0000 Signed Impressions: Service Date/Time: Thursday, October 19, 2017 10:40 - CONCLUSION: Fibrin sheath stripping of the patient's port. Dipesh Auguste Jr., MD Renal Ultrasound 10/15/17 Signed Impressions: Service Date/Time: Sunday, October 15, 2017 19:52 - CONCLUSION: Image quality is less than optimal secondary to patient body habitus. However, no hydronephrosis or concerning abnormality is identified. Cole Boston MD Chest X-Ray 10/08/17 0000 Signed Impressions: Service Date/Time: Sunday, October 08, 2017 05:16 - CONCLUSION: 1. Low lung volumes with mild patchy bilateral lower lung zone airspace disease, likely atelectasis. Foreign Blancas MD Objective Remarks GENERAL: This is a morbidly obese AA female in no acute distress Tympanic membrane intact with no evidence of infection CARDIOVASCULAR: Regular rate and rhythm without murmurs, gallops, or rubs. RESPIRATORY: Clear to auscultation. Breath sounds equal bilaterally. No wheezes , rales, or rhonchi. GASTROINTESTINAL: Abdomen soft, non-tender, nondistended. Bowel sounds appreciated MUSCULOSKELETAL: Extremities without clubbing, cyanosis, or edema. Lumbar drain catheter in place NEURO: Alert & Oriented x4 to person, place, time, situation. Moves all ext x4 Procedures 1. Lumbar spine irrigation and debridement, and drainage of lumbar spine abscess. 2. L4-5 decompressive laminectomy, foraminotomy, reexploration and repair of dural leak. 10/29/17 Lumbar puncture and drain placement Date of Insertion: Oct 05, 2017 A/P Problem List: (1) Abscess in epidural space of lumbar spine ICD Code: G06.1 - Intraspinal abscess and granuloma (2) Gram-positive bacteremia ICD Code: R78.81 - Bacteremia Assessment and Plan 62-year-old female with Abscess in the epidural space of lumbar spine Spiking fevers-resolved s/p irrigation and debridement and redo laminectomy L4-5 by orthopedic surgery Wound positive for MRSA. Currently on Cubicin per ID. Follow-up CK Pain management with Lortab and morphine sulfate consult regarding narcotics Bedrest per Ortho Continue Perez catheter per orthopedic recommendations secondary to surgical procedure port removal and replacement has been attempted by IR but was not successful, patient is not candidate for port placement in the chest secondary to fibrosis CSF leak status post LP and lumbar subarachnoid drain placement by IR. CSF counts and Gram stain unremarkable follow-up cultures Headache-Resolved Acute renal failure>>resolving Nephrology input appreciated Renal indices improving. Monitor and avoid nephrotoxins SUMIT inhibitor on hold Staph hominis and coag negative bacteremia. Resolved Currently on Daptomycin Repeat blood culture NTD ID ff Normochromic normocytic anemia likely secondary to infection Previously transfused 1 unit PRBC, transfused 1 unit 10/19/17 Negative Hemoccult 1 Continue ferrous sulfate for iron deficiency anemia Hypoalbuminemia The decrease of serum concentrations of Albumin 2/2 acute episode of infection Prealbumin 15 Ensure added to Diet Treat above infection with IV antibiotic per ID Urinary incontinence - UA unremarkable Outpatient follow-up with urology if persist Dyslipidemia --hold statin as patient currently on Cubicin Hypertension - Continue Norvasc Allergies. Flonase Constipation continue Colace DVT prophylaxis:on Coumadin (held for IR procedure) per ortho. Discharge Planning Rehab when ready Josr Murcia MD Oct 29, 2017 15:47
[2017-10-29] MEDS ORDERED: WARFARIN SOD 5 MG TAB PO SCH (16:00)
--- NOTE | 2017-10-29 19:43 | HHI.NSPN ---
(Jj Thorpe) History Chief Complaint: Legs are throbbing. (Rohit Thorpecandy BLANDONP) Interval History 10/27: 62-year-old female with history of lumbar stenosis underwent L4 5 decompressive hemilaminectomy, bilateral foraminotomy, repair of small dural leak left L4 5 level with DuraGen and fibrin glue on 09/24/2017. She was discharged in stable condition with home health care. She presented to the emergency room 10/01/17 with some leaking from the incision site. No fevers reported. She was kept at flat bedrest. Due to persistent CSF leak, she underwent irrigation and debridement and drainage of abscess at the L4 5 level on 2017. She was seen by infectious disease, , started on vancomycin with initial cultures indicating MRSA. Vancomycin was initially discontinued and changed to daptomycin due to acute renal failure. She was placed back on bed rest postoperatively, started out of bed with therapy from 10/12/2017 until 10/16/2017 when she was noted to have persistent fluid leakage at the incision site. She has been back at bed rest since then. An MRI on 10/15/2017 revealed some fluid tracking up along the posterior spinal canal from L4 5 laminectomy site to the thoracolumbar junction. Approximately 3 x 12 cm fluid collection in the mid to upper lumbar midline extending towards the skin surface. The patient was briefly examined by the undersigned initially on 10/24/2017 at which time she was noted to have very minimal drainage from the upper aspect of the midline lumbar incision was otherwise dry and intact incision, intact lower extremity motor function, and MRI reviewed. Findings were discussed with orthopedic surgery as well as radiology with plans for follow-up MRI scan in order to determine any progression of the fluid collection within the spinal canal prior to consideration of lumbar subarachnoid drain. Follow-up MRI of the lumbar spine 10/25/2017 has been completed and reveals resolution of the probable intradural fluid collection, with moderate persistent soft tissue fluid collection in the mid to upper lumbar region. Ms. Malloy complains of intermittent moderate low back pain. She has mild numbness in the lower extremities which she states is relatively chronic. No significant radiating pain in the lower extremities. No complaining of bowel or bladder dysfunction. No complaining of fevers or chills. No significant headache. No blurred vision or diplopia. 10/28: She has not noted any drainage from the incision over the past day. Her dressing was changed per nursing staff just prior to my visit today and was relatively dry without significant drainage. 10/29: The patient went for a lumbar subarachnoid drain placement by Interventional Radiology this morning. When seen this evening the patient is awake and watching TV. She has no complaint of headache but does say her legs are throbbing. The dressing is intact to drain insertion site but it is rolled down at the top slightly. The back was nontender to palpation. She weakly moved the lower extremities. There is no change in her chronic numbness to the lower extremities. (Jj Thorpe) Exam Results 10/28/17 10/28/17 10/29/17 10/29/17 10/30/17 10/30/17 06:00 18:00 06:00 18:00 06:00 18:00 Intake Total 1500 ml 1320 ml 1840 ml Output Total 1000 ml 2700 ml 2200 ml 550 ml Balance 500 ml -1380 ml -360 ml -550 ml Intake Oral 500 ml 1320 ml 840 ml IV Total 1000 ml 1000 ml Output Urine Total 1000 ml 2700 ml 2200 ml 550 ml # Bowel Movements 0 1 0 Vital Signs Date Time Temp Pulse Resp B/P (MAP) Pulse Ox O2 Delivery O2 Flow Rate FiO2 10/29/17 16:58 98.1 59 18 128/59 (82) 92 10/29/17 14:30 58 16 141/70 (93) 100 10/29/17 14:00 59 16 146/78 (100) 100 10/29/17 13:30 59 16 146/77 (100) 100 10/29/17 13:00 58 16 121/68 (85) 100 10/29/17 12:30 59 16 97/51 (66) 100 10/29/17 11:55 57 16 107/69 (82) 100 10/29/17 11:25 80 16 113/58 (76) 100 10/29/17 11:10 80 16 116/62 (80) 100 10/29/17 10:55 97.5 63 16 115/66 (82) 100 10/29/17 08:00 96.3 63 16 139/64 (89) 99 10/29/17 08:00 Nasal Cannula 2.00 10/29/17 00:00 97.6 68 18 121/59 (79) 94 10/28/17 20:00 96.6 65 18 138/62 (87) 93 10/28/17 16:00 96.4 68 18 166/72 (103) 96 10/28/17 12:00 97.0 65 17 126/58 (80) 96 10/28/17 08:00 Nasal Cannula 2.00 10/28/17 08:00 97.3 70 16 136/60 (85) 92 10/28/17 00:00 98.4 63 18 108/66 (80) 94 10/27/17 23:57 Nasal Cannula 2.00 10/27/17 20:00 97.3 89 18 119/59 (79) 94 10/27/17 16:00 97.7 58 16 122/61 (81) 94 10/27/17 12:00 96.7 60 16 112/56 (74) 93 10/27/17 08:00 97.2 60 16 121/61 (81) 93 10/27/17 08:00 Nasal Cannula 2.00 10/27/17 00:26 97.1 68 17 133/60 (84) 95 10/26/17 20:00 95.7 62 17 118/62 (80) 95 10/26/17 20:00 Nasal Cannula 2.00 (Jj Thorpe) Physical Examination GENERAL: Patient awake & alert in bed watching TV. Affect slightly flat. Readily interacts. No apparent distress. HEENT: Normocephalic, atraumatic. MUSCULOSKELETAL: Moves all extremities spontaneously & purposefully. Distal LLE TTP. Dressing intact to lower back but slightly rolled down from the superior edge, NTTP. NEUROLOGICAL: AAOx3. Speech clear & appropriate. Follows simple command w/o difficulty. Sensation decreased to distal BLE chronically w/o change, o/w intact to light touch to the BLE. Motor strength is normal for the patient. Lumbar subarachnoid drain is at shoulder height w/scant straw coloured CSF drainage in the collection chamber. (Jj Thorpe) Lab, Micro, Other Results Recent Impressions Lumbar Puncture Fluoroscopy 10/29/17 0000 Signed Impressions: Service Date/Time: Sunday, October 29, 2017 09:12 - CONCLUSION: Uncomplicated lumbar drain placement as above. Foreign Blancas MD Laboratory Tests Test 10/27/17 10:29 10/27/17 16:45 10/29/17 10:28 Prothrombin Time 11.3 SEC Prothromb Time International Ratio 1.1 RATIO Total Creatine Kinase 165 U/L CSF Volume (Tube 1) 4.0 ML CSF Supernatant Color (tube 1) CLEAR CSF Gross Blood (Tube 1) 0 CSF Volume (Tube 2) 3.0 ML CSF Supernatant Color (tube 2) CLEAR CSF Gross Blood (Tube 2) 0 CSF Volume (Tube 3) 3.0 ML CSF Supernatant Color (tube 3) CLEAR CSF Gross Blood (Tube 3) 0 CSF Volume (Tube 4) 3.0 ML CSF Supernatant Color (tube 4) CLEAR CSF Gross Blood (Tube 4) 0 CSF WBC (Tube 4) 8 /MM3 CSF RBC (Tube 4) 10 /MM3 CSF Neutrophils 0 % CSF Lymphocytes 80 % CSF Monocytes 20 % CSF Glucose 52 MG/DL CSF Total Protein 31.4 MG/DL (Jj Thorpe) Medical Decision Making Impression and Plan Impression: 1. Postoperative CSF leak. There is actually very minimal drainage from the incision over the past few days. Previous fluid collection within the subdural space resolved on most recent MRI. No evidence of active infection. Patient doing well s/p lumbar subarachnoid drain placement. No headache. No change in neuro status. POD #0 () s/p: Lumbar subarachnoid drain placement by Interventional Radiology Plan: Primary management per Hospitalist. Keep the HOB as low as the patient will tolerate. Place the lumbar drain at shoulder height. Leave drain open. Monitor & record ouptut every 8 hours. If output is <30 mL over 8 hrs lower drain by 2 cm. If output is >50 mL over 8 hrs raise drain by 2 cm. Goal is 90 to 150 mL in a 24 hr period. (Jj Thorpe) Attending Statement The exam, history, and the medical decision-making described in the above note were completed with the assistance of the mid-level provider. I reviewed and agree with the findings presented. I attest that I had a [id number] encounter with the patient on the same day, and personally performed and documented my assessment and findings in the medical record. Lumbar subarachnoid drain placed. On examination today the drain is functioning well. Orders given. Discussed with attending physician Would leave her at bedrest with drain in place for at least 5 days then clamped drain for 24 hours and discontinue if no evidence of persistent CSF leakage. Given the minimal amount of drainage from the wound site, it is likely that she will heal well with the temporary lumbar subarachnoid drain. (Nelson Wadsworth MD) Jj Thorpe Oct 29, 2017 19:43 Nelson Wadsworth MD Oct 30, 2017 00:38
[2017-10-29] MEDS: DEXTROSE 5%-LACTATED RING INJ 1,000 ML IV SCH (22:39)
[2017-10-30 00:06] VITALS: BP 120/56; PULSE 67; RESP 18; TEMP 98.8; O2SAT 98
[2017-10-30] MEDS: ACETAMINOPHEN/HYDROcodone 325 MG/7.5 MG TAB PO PRN ×4 (01:33→17:15)
[2017-10-30] MEDS: MORPHINE SULFATE 4 MG/ML INJ IV PUSH PRN ×3 (04:07→21:38)
[2017-10-30 04:35] VITALS: BP 129/58; PULSE 64; RESP 18; TEMP 98.7; O2SAT 98
[2017-10-30 06:27] LABS: BASOPHIL % 0.5 % (0.0-2.0); EOSINOPHIL # 0.1 TH/MM3 (0-0.4); EOSINOPHIL % 2.6 % (0.0-4.0); HEMATOCRIT 29.2 % (35.0-46.0); HEMOGLOBIN 9.2 GM/DL (11.6-15.3); LYMPH % 21.2 % (9.0-44.0); LYMPHOCYTE # 1.2 TH/MM3 (1.0-4.8); MEAN CORPUSCULAR HEMOGLOBIN 28.4 PG (27.0-34.0); MEAN CORPUSCULAR HGB CONC 31.6 % (32.0-36.0); MEAN PLATELET VOLUME 7.8 FL (7.0-11.0); MONO % 5.2 % (0.0-8.0); MONOCYTE # 0.3 TH/MM3 (0-0.9); NEUT % 70.5 % (16.0-70.0); PLATELET COUNT 292 TH/MM3 (150-450); RED BLOOD COUNT 3.25 MIL/MM3 (4.00-5.30); RED CELL DISTRIBUTION WIDTH 17.4 % (11.6-17.2); WHITE BLOOD COUNT 5.7 TH/MM3 (4.0-11.0)
[2017-10-30 06:31] LABS: INTERNATIONAL NORMALIZED RATIO 1.1 RATIO
[2017-10-30 06:52] LABS: BICARBONATE 28.6 MEQ/L (21.0-32.0); CALCIUM 9.9 MG/DL (8.5-10.1); CREATININE 1.22 MG/DL (0.50-1.00); MAGNESIUM 2.3 MG/DL (1.5-2.5)
--- NOTE | 2017-10-30 07:00 | PD.ORT.PN ---
Subjective Subjective Remarks POD # 25 Lumbar spine I&D MRSA No c/o of low back pain;no radiating leg pain;no headache Patient states she feels good Discussed with patient results of MRI Scan and discussions with Dr Wadsworth.Will clamp LP drain later in week ,if no drainage when OOB will D/C LP drain at that time Objective Vitals Vital Signs Date Time Temp Pulse Resp B/P (MAP) Pulse Ox O2 Delivery O2 Flow Rate FiO2 10/30/17 04:35 98.7 64 18 129/58 (81) 98 10/30/17 00:06 98.8 67 18 120/56 (77) 98 10/29/17 20:38 98.7 59 18 101/55 (70) 98 10/29/17 19:00 Nasal Cannula 2.00 10/29/17 16:58 98.1 59 18 128/59 (82) 92 10/29/17 14:30 58 16 141/70 (93) 100 10/29/17 14:00 59 16 146/78 (100) 100 10/29/17 13:30 59 16 146/77 (100) 100 10/29/17 13:00 58 16 121/68 (85) 100 10/29/17 12:30 59 16 97/51 (66) 100 10/29/17 11:55 57 16 107/69 (82) 100 10/29/17 11:25 80 16 113/58 (76) 100 10/29/17 11:10 80 16 116/62 (80) 100 10/29/17 10:55 97.5 63 16 115/66 (82) 100 10/29/17 08:00 96.3 63 16 139/64 (89) 99 10/29/17 08:00 Nasal Cannula 2.00 I/O 10/29/17 10/29/17 10/29/17 10/30/17 10/30/17 10/30/17 07:00 15:00 23:00 07:00 15:00 23:00 Intake Total 840 ml 480 ml Output Total 2200 ml 550 ml 1700 ml Balance -1360 ml -550 ml -1220 ml Intake Oral 840 ml 480 ml Output Urine Total 2200 ml 550 ml 1700 ml # Bowel Movements 0 Result Diagram: 10/30/17 0604 Other Results Laboratory Tests Test 10/30/17 06:04 Prothromb Time International Ratio 1.1 RATIO Prothrombin Time 11.0 SEC (9.8-11.6) Objective Remarks Alfonso cath in place LP drain in place Lumbar dressing no drainage, no erythema motor +5/5 to LE Neurologically no focal deficit. Assessment & Plan Assessment and Plan pod #25 s/p lumbar spine I&D with MRSA infection LP drain on 3 Unable to replace infusaport by IR 10/23 No headache;recurrent wound drainage; clinically patient looks good Did discuss with the patient today the recommended future care. I discussed with Dr. Nelson Wadsworth of neurosurgery and Dr. Justin Posada of interventional radiology her lumbar spine disorder. Will clamp LP drain later in week ,if no drainage when OOB will D/C LP drain at that time Continue antibiotics per I.D. ; vanco was stopped due to acute renal failure and cubicin was started, nephrology following Bedrest with no higher than 30 degrees of elevation of bed Coumadin 10 mg today for DVT;no longer need daily Pt/INRs, check twice a week( Sunday,). Await Dietary consult, eval for assistance and management of malnutrition. Ensure plus 1 can TID. Continue alfonso cath. Pt was urinating on herself in bed and there is concern about effect on lumbar spine wound. Medical team evaluating and treating anemia. Dylan Martin MD Oct 30, 2017 06:59
--- NOTE | 2017-10-30 07:17 | PD.ORT.PN ---
Subjective Subjective Remarks POD # 25 Lumbar spine I&D MRsa C/O headache,L leg pain since LP Drain insertion yesterday Patient states she feels good Discussed with patient results of MRI Scan and discussions with Dr Wadsworth.Will clamp LP drain later in week ,if no drainage when OOB will D/C LP drain at that time Objective Vitals Vital Signs Date Time Temp Pulse Resp B/P (MAP) Pulse Ox O2 Delivery O2 Flow Rate FiO2 10/30/17 04:35 98.7 64 18 129/58 (81) 98 10/30/17 00:06 98.8 67 18 120/56 (77) 98 10/29/17 20:38 98.7 59 18 101/55 (70) 98 10/29/17 19:00 Nasal Cannula 2.00 10/29/17 16:58 98.1 59 18 128/59 (82) 92 10/29/17 14:30 58 16 141/70 (93) 100 10/29/17 14:00 59 16 146/78 (100) 100 10/29/17 13:30 59 16 146/77 (100) 100 10/29/17 13:00 58 16 121/68 (85) 100 10/29/17 12:30 59 16 97/51 (66) 100 10/29/17 11:55 57 16 107/69 (82) 100 10/29/17 11:25 80 16 113/58 (76) 100 10/29/17 11:10 80 16 116/62 (80) 100 10/29/17 10:55 97.5 63 16 115/66 (82) 100 10/29/17 08:00 96.3 63 16 139/64 (89) 99 10/29/17 08:00 Nasal Cannula 2.00 I/O 10/29/17 10/29/17 10/29/17 10/30/17 10/30/17 10/30/17 07:00 15:00 23:00 07:00 15:00 23:00 Intake Total 840 ml 480 ml Output Total 2200 ml 550 ml 1700 ml Balance -1360 ml -550 ml -1220 ml Intake Oral 840 ml 480 ml Output Urine Total 2200 ml 550 ml 1700 ml # Bowel Movements 0 Result Diagram: 10/30/17 0604 10/30/17 0604 Other Results Laboratory Tests Test 10/30/17 06:04 Prothromb Time International Ratio 1.1 RATIO Prothrombin Time 11.0 SEC (9.8-11.6) Objective Remarks Alfonso cath in place LP drain in place;CSF clear Lumbar dressing no drainage, no erythema motor +5/5 to LE;with L LE pain difficult to assess motor strength to L LLE Neurologically no focal deficit. Assessment & Plan Assessment and Plan pod #25 s/p lumbar spine I&D with MRSA infection LP drain on 10/29 Unable to replace infusaport by IR 10/23 No headache;recurrent wound drainage; clinically patient looks good Did discuss with the patient today the recommended future care. I discussed with Dr. Nelson Wadsworth of neurosurgery and Dr. Justin Posada of interventional radiology her lumbar spine disorder. Will clamp LP drain later in week ,if no drainage when OOB will D/C LP drain at that time Continue antibiotics per I.D. ; vanco was stopped due to acute renal failure and cubicin was started, nephrology following Bedrest with no higher than 30 degrees of elevation of bed Coumadin 10 mg today for DVT;no longer need daily Pt/INRs, check twice a week( Sunday,). Await Dietary consult, eval for assistance and management of malnutrition. Ensure plus 1 can TID. Continue alfonso cath. Pt was urinating on herself in bed and there is concern about effect on lumbar spine wound. Medical team evaluating and treating anemia. Dylan Martin MD Oct 30, 2017 07:17
[2017-10-30 08:13] VITALS: BP 161/63; PULSE 68; RESP 18; TEMP 98.6; O2SAT 93
[2017-10-30] MEDS: DOCUSATE SODIUM 100 MG CAP PO SCH ×2 (09:26→21:37)
[2017-10-30] MEDS: amLODIPine BESYLATE 5 MG TAB PO SCH (09:26)
[2017-10-30] MEDS: FERROUS SULFATE 325 MG (65 MG ELEMENTAL IRON) TAB PO SCH ×2 (09:27→21:37)
[2017-10-30] MEDS: PANTOPRAZOLE SOD 20 MG DELAYED RELEASE TAB PO SCH (09:27)
[2017-10-30] MEDS: MULTIVITAMINS/MINERALS THERAPEUTIC TAB PO SCH ×2 (09:27→21:37)
[2017-10-30] MEDS: FLUTICASONE PROPIONATE 50 MCG/ACT 16 GM NASAL SPRAY NASAL SCH (09:27)
[2017-10-30] MEDS: GABAPENTIN 100 MG CAP PO SCH ×3 (09:27→17:15)
[2017-10-30] MEDS: DAPTOmycin INJ 900 MG in SODIUM CHLORIDE 0.9% INJ 100 ML IV SCH (09:27)
[2017-10-30] MEDS: CEFEPIME INJ 2,000 MG in SODIUM CHLORIDE 0.9% INJ 100 ML IV SCH ×2 (11:36→21:38)
[2017-10-30 11:50] VITALS: BP 165/66; PULSE 82; RESP 20; TEMP 97.6; O2SAT 93
--- NOTE | 2017-10-30 12:19 | HHI.IDPN ---
Note Infectious Disease Note Patient went for a lumbar subarachnoid drainage catheter placement yesterday. CSF in the drainage catheter is clear. She is complaining of headache. She also notes pain in the legs. Denies nausea. Culture preliminary from this CSF from yesterday has gram-negative manav. Afebrile. 61-year-old black female who recently underwent lumbar spine surgery. The patient was treated for lumbar spine stenosis. She underwent L4-L5 bilateral decompressive hemilaminectomy along with decompression of nerve root and left side L4-L5 repair of dural leak. The patient was discharged from the hospital on September 26. She was taken to surgery and underwent incision and drainage of an lumbar abscess. PAST MEDICAL HISTORY 1. Dyslipidemia, 2. Status post laminectomy for spinal stenosis 3. Appendectomy, 4. Gastric bypass 5. Knee replacement 6. Gastroesophageal reflux disease, 7. Hysterectomy. ALLERGIES NO KNOWN DRUG ALLERGIES. MEDICATION: Vital Signs Date Time Temp Pulse Resp B/P (MAP) Pulse Ox O2 Delivery O2 Flow Rate FiO2 10/30/17 11:50 97.6 82 20 165/66 (99) 93 10/30/17 08:13 98.6 68 18 161/63 (95) 93 10/30/17 08:00 93 Room Air 10/30/17 04:35 98.7 64 18 129/58 (81) 98 10/30/17 00:06 98.8 67 18 120/56 (77) 98 10/29/17 20:38 98.7 59 18 101/55 (70) 98 10/29/17 19:00 Nasal Cannula 2.00 10/29/17 16:58 98.1 59 18 128/59 (82) 92 10/29/17 14:30 58 16 141/70 (93) 100 10/29/17 14:00 59 16 146/78 (100) 100 10/29/17 13:30 59 16 146/77 (100) 100 10/29/17 13:00 58 16 121/68 (85) 100 10/29/17 12:30 59 16 97/51 (66) 100 Laboratory Tests Test 10/30/17 06:04 White Blood Count 5.7 TH/MM3 Red Blood Count 3.25 MIL/MM3 Hemoglobin 9.2 GM/DL Hematocrit 29.2 % Mean Corpuscular Volume 90.0 FL Mean Corpuscular Hemoglobin 28.4 PG Mean Corpuscular Hemoglobin Concent 31.6 % Red Cell Distribution Width 17.4 % Platelet Count 292 TH/MM3 Mean Platelet Volume 7.8 FL Neutrophils (%) (Auto) 70.5 % Lymphocytes (%) (Auto) 21.2 % Monocytes (%) (Auto) 5.2 % Eosinophils (%) (Auto) 2.6 % Basophils (%) (Auto) 0.5 % Neutrophils # (Auto) 4.0 TH/MM3 Lymphocytes # (Auto) 1.2 TH/MM3 Monocytes # (Auto) 0.3 TH/MM3 Eosinophils # (Auto) 0.1 TH/MM3 Basophils # (Auto) 0.0 TH/MM3 CBC Comment DIFF FINAL Differential Comment Laboratory Tests Test 10/30/17 06:04 Blood Urea Nitrogen 34 MG/DL Creatinine 1.22 MG/DL Random Glucose 103 MG/DL Calcium Level 9.9 MG/DL Magnesium Level 2.3 MG/DL Sodium Level 136 MEQ/L Potassium Level 4.7 MEQ/L Chloride Level 99 MEQ/L Carbon Dioxide Level 28.6 MEQ/L Anion Gap 8 MEQ/L Estimat Glomerular Filtration Rate 54 ML/MIN Microbiology Date/Time Source Procedure Growth Status 10/29/17 10:28 Cerebral Spinal Fluid Lumbar Puncture Fungal Smear Pending Received 10/29/17 10:28 Cerebral Spinal Fluid Lumbar Puncture Fungal Culture Pending Received 10/29/17 10:28 Cerebral Spinal Fluid Lumbar Puncture Gram Stain - Final Resulted 10/29/17 10:28 CSF Culture - Preliminary Gram Negative Manav Resulted IMAGING: Lumbar Puncture Fluoroscopy 10/29/17 0000 Signed Impressions: Service Date/Time: Sunday, October 29, 2017 09:12 - CONCLUSION: Uncomplicated lumbar drain placement as above. Foreign Blancas MD Lumbar Spine MRI 10/25/17 0000 Signed Impressions: Service Date/Time: October 13:20 - CONCLUSION: 1. Persistent fluid collection extending from the laminectomy defect at L4-5 into the subcutaneous tissues in the midline of the back measures 4.8 cm AP x 6.8 cm TRV x 9.7 cm SAG. 2. Moderate spinal stenosis at L4-5 and mild spinal stenosis at L3-4 and L5-S1. 3. Moderate bilateral foraminal narrowing at L4-5 and L5-S1 and moderate right neural foraminal narrowing at L3-4. 4. Resolution of the previously noted CSF collection in the posterior spinal canal extending from T12 through L2. 5. Grade I anterolisthesis of L4 in relation to L5. 6. Degenerative disc disease L3-4, L4-5 and L5-S1. 7. Facet joint hypertrophy bilaterally from L3 through L5. Gio Verduzco MD Venous Access Device Injection 10/23/17 0000 Signed Impressions: Service Date/Time: Monday, October 23, 2017 11:57 - CONCLUSION: 1. The catheter tip port is at the level of the right atria. 2. The patient has complete central venous occlusion. 3. Please see above. Mati Posada MD Venogram 10/23/17 0000 Signed Impressions: Service Date/Time: Monday, October 23, 2017 11:57 - CONCLUSION: 1. The patient has complete fibrotic central venous occlusion and is not a candidate for [id number] placement in the upper chest. 2. The existing port which is in an appropriate location and can be used for infusion of medications or other indicated products. 3. The existing port was vigorously flushed with 20 cc of saline following this using a slow, deliberate technique blood could be withdrawn if a 3 cc syringe was used. Mati Posada MD Foreign Body Removal 10/19/17 0000 Signed Impressions: Service Date/Time: Thursday, October 19, 2017 10:40 - CONCLUSION: Fibrin sheath stripping of the patient's port. Dipesh Auguste Jr., MD Renal Ultrasound 10/15/17 0000 Signed Impressions: Service Date/Time: Sunday, October 15, 2017 19:52 - CONCLUSION: Image quality is less than optimal secondary to patient body habitus. However, no hydronephrosis or concerning abnormality is identified. Cole Boston MD Chest X-Ray 10/08/17 0000 Signed Impressions: Service Date/Time: Sunday, October 08, 2017 05:16 - CONCLUSION: 1. Low lung volumes with mild patchy bilateral lower lung zone airspace disease, likely atelectasis. Foreign Blancas MD Chest X-Ray 10/08/17 0000 Signed Impressions: Service Date/Time: Sunday, October 08, 2017 05:16 - CONCLUSION: 1. Low lung volumes with mild patchy bilateral lower lung zone airspace disease, likely atelectasis. Foreign Blancas MD PHYSICAL EXAMINATION GENERAL: Awake appears drowsy. HEENT: Extraocular movements grossly intact. No icterus. Oropharynx moist mucosa without lesions. NECK: Supple without adenopathy. LUNGS: Decreased breath sounds. HEART: Regular S1, S2 without murmurs, rubs or gallops. ABDOMEN: Bowel sounds present, soft, no tenderness. BACK: Lumbar subarachnoid drainage catheter in place. EXTREMITIES: No clubbing or cyanosis or edema. SKIN: No rash. NEUROLOGIC: No gross focal findings. PSYCHIATRIC: Calm and cooperative. IMPRESSION 1. Lumbar abscess. MRSA. Post drainage. Post laminectomy and repair of epidural tear. MRI showed fluid collection extending from the laminectomy defect into the subcutaneous tissues. 2. Postoperative CSF leak. Status post placement of subarachnoid CSF drain. CSF cultures showing gram-negative manav. 3. Acute kidney disease secondary to vancomycin. Kidney function improving. RECOMMENDATIONS 1. Continue Daptomycin. 2. Add cefepime. 3. Monitor the culture of the CSF for identity and sensitivity of gram- negative manav. 4. Monitor temperature and clinical status. Shukri Naqvi MD Oct 30, 2017 12:19
--- NOTE | 2017-10-30 14:07 | HHI.PR ---
Subjective Remarks HAD LUMBAR DRAIN PLACED 10-29 DW RN AND PT AND CM MEDS ADJUSTED BY ID CONTINUE CURRENT ANTIBIOTICS Complaining of headaches today Currently on daptomycin and cefepime by infectious disease Objective Vitals Vital Signs Date Time Temp Pulse Resp B/P (MAP) Pulse Ox O2 Delivery O2 Flow Rate FiO2 10/30/17 11:50 97.6 82 20 165/66 (99) 93 10/30/17 08:13 98.6 68 18 161/63 (95) 93 10/30/17 08:00 93 Room Air 10/30/17 04:35 98.7 64 18 129/58 (81) 98 10/30/17 00:06 98.8 67 18 120/56 (77) 98 10/29/17 20:38 98.7 59 18 101/55 (70) 98 10/29/17 19:00 Nasal Cannula 2.00 10/29/17 16:58 98.1 59 18 128/59 (82) 92 10/29/17 14:30 58 16 141/70 (93) 100 I/O 10/29/17 10/29/17 10/29/17 10/30/17 10/30/17 10/30/17 06:59 14:59 22:59 06:59 14:59 22:59 Intake Total 840 ml 480 ml Output Total 2200 ml 550 ml 1700 ml 1710 ml Balance -1360 ml -550 ml -1220 ml -1710 ml Intake Oral 840 ml 480 ml Output Urine Total 2200 ml 550 ml 1700 ml 1625 ml Drainage Total 85 ml # Bowel Movements 0 Result Diagram: 10/30/17 0604 10/30/17 0604 Other Results Laboratory Tests Test 10/27/17 16:45 10/29/17 10:28 10/30/17 06:04 Total Creatine Kinase 165 U/L CSF Volume (Tube 1) 4.0 ML CSF Supernatant Color (tube 1) CLEAR CSF Gross Blood (Tube 1) 0 CSF Volume (Tube 2) 3.0 ML CSF Supernatant Color (tube 2) CLEAR CSF Gross Blood (Tube 2) 0 CSF Volume (Tube 3) 3.0 ML CSF Supernatant Color (tube 3) CLEAR CSF Gross Blood (Tube 3) 0 CSF Volume (Tube 4) 3.0 ML CSF Supernatant Color (tube 4) CLEAR CSF Gross Blood (Tube 4) 0 CSF WBC (Tube 4) 8 /MM3 CSF RBC (Tube 4) 10 /MM3 CSF Neutrophils 0 % CSF Lymphocytes 80 % CSF Monocytes 20 % CSF Glucose 52 MG/DL CSF Total Protein 31.4 MG/DL White Blood Count 5.7 TH/MM3 Red Blood Count 3.25 MIL/MM3 Hemoglobin 9.2 GM/DL Hematocrit 29.2 % Mean Corpuscular Volume 90.0 FL Mean Corpuscular Hemoglobin 28.4 PG Mean Corpuscular Hemoglobin Concent 31.6 % Red Cell Distribution Width 17.4 % Platelet Count 292 TH/MM3 Mean Platelet Volume 7.8 FL Neutrophils (%) (Auto) 70.5 % Lymphocytes (%) (Auto) 21.2 % Monocytes (%) (Auto) 5.2 % Eosinophils (%) (Auto) 2.6 % Basophils (%) (Auto) 0.5 % Neutrophils # (Auto) 4.0 TH/MM3 Lymphocytes # (Auto) 1.2 TH/MM3 Monocytes # (Auto) 0.3 TH/MM3 Eosinophils # (Auto) 0.1 TH/MM3 Basophils # (Auto) 0.0 TH/MM3 CBC Comment DIFF FINAL Differential Comment Prothrombin Time 11.0 SEC Prothromb Time International Ratio 1.1 RATIO Blood Urea Nitrogen 34 MG/DL Creatinine 1.22 MG/DL Random Glucose 103 MG/DL Calcium Level 9.9 MG/DL Magnesium Level 2.3 MG/DL Sodium Level 136 MEQ/L Potassium Level 4.7 MEQ/L Chloride Level 99 MEQ/L Carbon Dioxide Level 28.6 MEQ/L Anion Gap 8 MEQ/L Estimat Glomerular Filtration Rate 54 ML/MIN Imaging Last Impressions Lumbar Puncture Fluoroscopy 10/29/17 0000 Signed Impressions: Service Date/Time: Sunday, October 29, 2017 09:12 - CONCLUSION: Uncomplicated lumbar drain placement as above. Foreign Blancas MD Lumbar Spine MRI 10/25/17 0000 Signed Impressions: Service Date/Time: October 13:20 - CONCLUSION: 1. Persistent fluid collection extending from the laminectomy defect at L4-5 into the subcutaneous tissues in the midline of the back measures 4.8 cm AP x 6.8 cm TRV x 9.7 cm SAG. 2. Moderate spinal stenosis at L4-5 and mild spinal stenosis at L3-4 and L5-S1. 3. Moderate bilateral foraminal narrowing at L4-5 and L5-S1 and moderate right neural foraminal narrowing at L3-4. 4. Resolution of the previously noted CSF collection in the posterior spinal canal extending from T12 through L2. 5. Grade I anterolisthesis of L4 in relation to L5. 6. Degenerative disc disease L3-4, L4-5 and L5-S1. 7. Facet joint hypertrophy bilaterally from L3 through L5. Gio Verduzco MD Venous Access Device Injection 10/23/17 0000 Signed Impressions: Service Date/Time: Monday, October 23, 2017 11:57 - CONCLUSION: 1. The catheter tip port is at the level of the right atria. 2. The patient has complete central venous occlusion. 3. Please see above. Mati Posada MD Venogram 10/23/17 0000 Signed Impressions: Service Date/Time: Monday, October 23, 2017 11:57 - CONCLUSION: 1. The patient has complete fibrotic central venous occlusion and is not a candidate for [id number] placement in the upper chest. 2. The existing port which is in an appropriate location and can be used for infusion of medications or other indicated products. 3. The existing port was vigorously flushed with 20 cc of saline following this using a slow, deliberate technique blood could be withdrawn if a 3 cc syringe was used. Mati Posada MD Foreign Body Removal 10/19/17 0000 Signed Impressions: Service Date/Time: Thursday, October 19, 2017 10:40 - CONCLUSION: Fibrin sheath stripping of the patient's port. Dipesh Auguste Jr., MD Renal Ultrasound 10/15/17 0000 Signed Impressions: Service Date/Time: Sunday, October 15, 2017 19:52 - CONCLUSION: Image quality is less than optimal secondary to patient body habitus. However, no hydronephrosis or concerning abnormality is identified. Cole Boston MD Chest X-Ray 10/08/17 0000 Signed Impressions: Service Date/Time: Sunday, October 08, 2017 05:16 - CONCLUSION: 1. Low lung volumes with mild patchy bilateral lower lung zone airspace disease, likely atelectasis. Foreign Blancas MD Objective Remarks GENERAL: Awake alert and oriented 3 talkative and cooperative appears to be quite uncomfortable still states the [place] helps the headaches somewhat SKIN: Warm and dry. HEAD: Atraumatic. Normocephalic. EYES: Pupils equal and round. No scleral icterus. No injection or drainage. ENT: No nasal bleeding or discharge. Mucous membranes pink and moist. NECK: Trachea midline. No JVD. CARDIOVASCULAR: Regular rate and rhythm. S1-S2 no S3 or S4 RESPIRATORY: No accessory muscle use. Clear to auscultation. Breath sounds equal bilaterally. GASTROINTESTINAL: Abdomen soft, non-tender, nondistended. Hepatic and splenic margins not palpable. Obese MUSCULOSKELETAL: Extremities without clubbing, cyanosis, or edema. No obvious deformities. NEUROLOGICAL: Awake and alert. No obvious cranial nerve deficits. Motor grossly within normal limits. 4 out of 5 muscle strength in the arms and legs. Normal speech. PSYCHIATRIC: Appropriate mood and affect; insight and judgment normal. Drain remains in place Procedures 1. Lumbar spine irrigation and debridement, and drainage of lumbar spine abscess. 2. L4-5 decompressive laminectomy, foraminotomy, reexploration and repair of dural leak. 10/29/17 Lumbar puncture and drain placement Medications and IVs Current Medications Lactated Ringer's 1,000 ml @ 30 mls/hr Q24H PRN IV SEE LABEL COMMENTS; Start at 12:00; Stop 10/08/17 at 11:59; Status DC Sodium Chloride 500 ml @ 30 mls/hr [id number] PRN IV SEE LABEL COMMENTS; Start at 12:00; Stop 10/08/17 at 11:59; Status DC Metoprolol Tartrate (Lopressor) 25 mg FORGE HEATER PRN PO SEE LABEL COMMENTS; Start 10/05/17 at 12:00; Stop 10/08/17 at 11:59; Status DC Povidone Iodine (Betadine 5% Antisepsis Kit) 1 applic FORGE HEATER PRN EACH NARE SEE LABEL COMMENTS; Start 10/05/17 at 12:00; Stop 10/08/17 at 11:59; Status DC Chlorhexidine Gluconate (Chlorhexidine 2% Cloth) 3 pack FORGE HEATER PRN TOPICAL SEE LABEL COMMENTS; Start 10/05/17 at 12:00; Stop 10/08/17 at 11:59; Status DC Chlorhexidine Gluconate (Hibiclens 4% Top Soln) 1 applic ONCE TOPICAL ; Start at 12:00; Stop 10/08/17 at 11:59; Status DC Dextrose/Lactated Ringer's 1,000 ml @ 50 mls/hr Q20H IV Last administered on at 20:00; Start 10/05/17 at 12:00 Acetaminophen 100 ml @ As Directed STK-MED ONCE IV ; Start 10/05/17 at 12:16; Stop 10/05/17 at 12:17; Status DC Sugammadex Sodium (Bridion Inj) 400 mg STK-MED ONCE IV PUSH ; Start 10/05/17 at 12:30; Stop 10/05/17 at 12:31; Status DC Bupivacaine HCl/ Epinephrine Bitart (Sensorcaine-Epinephrine 0.25% Inj) 50 ml STK-MED ONCE .ROUTE ; Start 10/05/17 at 12:43; Stop 10/05/17 at 12:44; Status DC Gentamicin Sulfate (Gentamicin Inj) 160 mg STK-MED ONCE .ROUTE Last administered on 10/05/17at 15:00; Start 10/05/17 at 12:43; Stop 10/05/17 at 12:44 ; Status DC Sodium Chloride (NS Flush) 5 ml UNSCH PRN IV FLUSH SEE PROTOCOL TABLE Last administered on 10/26/17at 08:39; Start 10/05/17 at 14:00 Heparin Sodium (Porcine) (Heparin Central Flush) 250 units UNSCH PRN IV FLUSH SEE PROTOCOL TABLE Last administered on 10/23/17at 13:32; Start 10/05/17 at 14:00 Heparin Sodium (Porcine) (Heparin Central Flush) 500 units UNSCH IV FLUSH Last administered on 10/20/17at 06:24; Start 10/05/17 at 14:00 Vancomycin HCl (Vancomycin Inj) 1,000 mg STK-MED ONCE .ROUTE Last administered on 10/05/17at 15:00; Start 10/05/17 at 14:52; Stop 10/05/17 at 14:53; Status DC Cefazolin Sodium (Ancef Inj) 2,000 mg STK-MED ONCE .ROUTE Last administered on 10/05/17at 15:00; Start 10/05/17 at 14:52; Stop 10/05/17 at 14:53; Status DC Fentanyl Citrate (fentaNYL INJ) 100 mcg STK-MED ONCE .ROUTE ; Start 10/05/17 at 15:03; Stop 10/05/17 at 15:04; Status DC Miscellaneous Information (Post-op Orders (for Pharmacy)) STAT ONCE XX ; Start 10/05/17 at 18:00; Stop 10/05/17 at 18:01; Status DC Cefazolin Sodium 1000 mg/Sodium Chloride 100 ml @ 200 mls/hr Q8H IV Last administered on 10/06/17at 17:17; Start 10/06/17 at 00:00; Stop 10/06/17 at 16:29 ; Status DC Morphine Sulfate (Morphine Inj) 5 mg Q3H PRN IV PUSH BREAKTHROUGH PAIN Last administered on 10/30/17at 07:01; Start 10/05/17 at 17:00 Acetaminophen/ Hydrocodone Bitart ([place] 7.5-325 Mg) 1 tab Q4H PRN PO PAIN SCALE 1 TO 5 Last administered on 10/21/17at 17:45; Start 10/05/17 at 17:00 Acetaminophen/ Hydrocodone Bitart ([place] 7.5-325 Mg) 2 tab Q6H PRN PO PAIN SCALE 6 TO 10 Last administered on 10/06/17at 05:58; Start 10/05/17 at 17:00; Stop 10/06/17 at 09:00; Status DC Multivitamins/ Minerals Therapeutic (Theragran M Tab) 1 tab BID PO Last administered on 10/30/17at 09:27; Start 10/06/17 at 09:00; Stop 12/05/17 at 08:59 Ondansetron HCl (Zofran Inj) 4 mg Q6H PRN IV PUSH NAUSEA OR VOMITING; Start at 17:00 Docusate Sodium (Colace) 100 mg BID PO ; Start 10/06/17 at 21:00; Stop 10/06/17 at 21:00; Status DC Al Hydrox/Mg Hydrox/Simethicone (Mag-Al Plus Susp Liq) 30 ml Q6H PRN PO INDIGESTION; Start 10/05/17 at 17:00 Zolpidem Tartrate (Ambien) 5 mg HS PRN PO SLEEP; Start 10/05/17 at 21:00 Bisacodyl (Dulcolax Supp) 10 mg DAILY PRN RECTAL CONSTIPATION; Start 10/05/17 at 17:15; Stop 10/24/17 at 07:43; Status DC Sodium Biphosphate/ Sodium Phosphate (Fleets Enema (Adult)) 133 ml DAILY PRN GA CONSTIPATION; Start 10/05/17 at 17:15; Stop 10/14/17 at 09:40; Status DC Naloxone HCl (Narcan Inj) 0.4 mg UNSCH PRN IV PUSH RESPIRATORY RATE LESS THAN 10; Start 10/05/17 at 17:00 Pravastatin Sodium (Pravachol) 40 mg DAILY PO Last administered on 10/15/17at 08: 34; Start 10/06/17 at 09:00; Status Future Hold Pantoprazole Sodium (Protonix) 20 mg DAILY PO Last administered on 10/30/17at 09 :27; Start 10/06/17 at 09:00 Meperidine HCl (*DEMEROL INJ PERIprocedural ONLY) 25 mg STK-MED ONCE .ROUTE Last administered on 10/05/17at 16:47; Start 10/05/17 at 16:47; Stop 10/05/17 at 16:48; Status DC Morphine Sulfate (*morphine INJ PERIprocedure ONLY) 10 mg STK-MED ONCE .ROUTE Last administered on 10/05/17at 16:49; Start 10/05/17 at 16:49; Stop 10/05/17 at 16:50; Status DC Morphine Sulfate (*morphine INJ PERIprocedure ONLY) 10 mg STK-MED ONCE .ROUTE Last administered on 10/05/17at 16:56; Start 10/05/17 at 16:56; Stop 10/05/17 at 16:57; Status DC Hydromorphone HCl (Dilaudid Pf Inj) 2 mg STK-MED ONCE .ROUTE Last administered on 10/05/17at 17:05; Start 10/05/17 at 17:05; Stop 10/05/17 at 17:06; Status DC Miscellaneous Information ALL NURSING DEPARTME... UNSCH PRN .XX SEE LABEL COMMENTS; Start 10/05/17 at 16:40; Stop 10/06/17 at 16:39; Status DC Fentanyl Citrate (fentaNYL INJ) 100 mcg STK-MED ONCE .ROUTE ; Start 10/05/17 at 17:28; Stop 10/05/17 at 17:29; Status DC Morphine Sulfate (Morphine Inj) 8 mg STK-MED ONCE .ROUTE ; Start 10/05/17 at 19: 00; Stop 10/05/17 at 19:01; Status DC Acetaminophen/ Hydrocodone Bitart ([place] 7.5-325 Mg) 2 tab Q4HR PRN PO PAIN SCALE 6 TO 10 Last administered on 10/30/17at 11:00; Start 10/06/17 at 09:00 Docusate Sodium (Colace) 100 mg BID PO Last administered on 10/30/17at 09:26; Start 10/06/17 at 09:30 Pharmacy Profile Note 0 ml @ 0 mls/hr UNSCH OTHER ; Start 10/06/17 at 13:30; Stop 10/15/17 at 14:08; Status DC Vancomycin HCl 2500 mg/Sodium Chloride 525 ml @ 257.5 mls/ hr ONCE ONCE IV Last administered on 10/06/17at 15:17; Start 10/06/17 at 15:00; Stop 10/06/17 at 17:02; Status DC Gabapentin (Neurontin) 300 mg TID PO Last administered on 10/17/17 09:18; Start 10/07/17 at 09:00; Stop 10/17/17 at 09:46; Status DC Vancomycin HCl 2500 mg/Sodium Chloride 525 ml @ 257.5 mls/ hr ONCE ONCE IV Last administered on 10/07/17at 11:43; Start 10/07/17 at 12:00; Stop 10/07/17 at 14:02; Status DC Acetaminophen (Tylenol) 650 mg Q4H PRN PO fever > 101 Last administered on at 11:31; Start 10/08/17 at 02:45 Warfarin Sodium (Coumadin) 10 mg ONCE ONCE PO Last administered on 10/08/17at 08:58; Start 10/08/17 at 09:00; Stop 10/08/17 at 09:01; Status DC Warfarin Sodium (Coumadin) GIVE 5MG IF INR < 1.2 G... DAILY@1000 PO Last administered on 10/18/17at 09:49; Start 10/09/17 at 10:00; Stop 10/19/17 at 07:13; Status DC Patient Medication Teaching (Coumadin Booklet) 1 ONCE ONCE .XX Last administered on 10/08/17at 17:39; Start 10/08/17 at 09:00; Stop 10/08/17 at 09:02 ; Status DC Lidocaine HCl (Xylocaine-Mpf 1% Inj) 4 ml STK-MED ONCE OTHER ; Start 10/05/17 at 12:00; Stop 10/08/17 at 09:38; Status DC Rocuronium [place] (Zemuron Inj) 50 mg STK-MED ONCE IV PUSH ; Start 10/05/17 at 12:00; Stop 10/08/17 at 09:38; Status DC Phenylephrine HCl (Neosynephrine/ NS 1000 Mcg/10ml Syr) 100 mcg STK-MED ONCE IV ; Start 10/05/17 at 12:00; Stop 10/08/17 at 09:38; Status DC Dexamethasone Sodium Phosphate (Decadron Inj) 4 mg STK-MED ONCE IV ; Start 10/05 at 12:00; Stop 10/08/17 at 09:38; Status DC Ondansetron HCl (Zofran Inj) 4 mg STK-MED ONCE IV PUSH ; Start 10/05/17 at 12:00 ; Stop 10/08/17 at 09:38; Status DC Propofol (Diprivan 200 Mg/20 ml Inj) 200 mg STK-MED ONCE IV ; Start 10/05/17 at 12:00; Stop 10/08/17 at 09:38; Status DC Vancomycin HCl 2500 mg/Sodium Chloride 525 ml @ 262.5 mls/ hr ONCE ONCE IV Last administered on 10/08/17at 17:37; Start 10/08/17 at 15:00; Stop 10/08/17 at 16:59; Status DC Patient Medication Teaching (Coumadin Booklet) 1 STK-MED ONCE .ROUTE ; Start at 17:35; Stop 10/08/17 at 17:36; Status DC Warfarin Sodium (Coumadin) 10 mg ONCE ONCE PO Last administered on 10/09/17at 10:00; Start 10/09/17 at 10:00; Stop 10/09/17 at 10:01; Status DC Vancomycin HCl 2500 mg/Sodium Chloride 525 ml @ 262.5 mls/ hr Q18H IV Last administered on 10/14/17at 17:44; Start 10/09/17 at 12:00; Stop 10/15/17 at 14:08; Status DC Miscellaneous Information SPECIFIC LAB TO BE DRAWN:VANCO TROUGH DATE... ONCE ONCE .XX Last administered on 10/11/17at 17:45; Start 10/11/17 at 17:45; Stop 10/11 at 17:46; Status DC Sodium Chloride 250 ml @ 15 mls/hr ONCE ONCE IV Last administered on at 18:21; Start 10/09/17 at 13:15; Stop 10/10/17 at 05:54; Status DC Acetaminophen (Tylenol) 650 mg Q4H PRN PO SEE LABEL COMMENTS; Start 10/09/17 at 13:15; Stop 10/19/17 at 08:40; Status DC Diphenhydramine HCl (Benadryl) 25 mg Q4H PRN PO SEE LABEL COMMENTS; Start 10/09 at 13:15; Stop 10/19/17 at 08:40; Status DC Lisinopril (Prinivil) 5 mg DAILY PO Last administered on 10/15/17at 08:34; Start 10/10/17 at 09:00; Status Future Hold Warfarin Sodium (Coumadin) 5 mg ONCE ONCE PO Last administered on 10/10/17at 15 :45; Start 10/10/17 at 16:00; Stop 10/10/17 at 16:01; Status DC Ferrous Sulfate (Ferrous Sulfate) 325 mg BID PO Last administered on 10/30/17at 09:27; Start 10/10/17 at 21:00 Miscellaneous Information SPECIFIC LAB TO BE DRAWN:[facility]... ONCE ONCE .XX ; Start 10/15/17 at 11:45; Stop 10/15/17 at 11:46; Status DC Magnesium Hydroxide (Milk Of Magnesia Liq) 30 ml Q6H PRN PO CONSTIPATION Last administered on 10/27/17at 09:40; Start 10/14/17 at 09:45 Daptomycin 600 mg/ Sodium Chloride 100 ml @ 200 mls/hr Q24H IV Last administered on 10/16/17at 08:28; Start 10/16/17 at 09:00; Stop 10/16/17 at 16:05; Status DC Sodium Biphosphate/ Sodium Phosphate (Fleets Enema (Adult)) 133 ml ONCE ONCE GA Last administered on 10/15/17at 17:31; Start 10/15/17 at 16:00; Stop 10/15/17 at 16:01; Status DC Iohexol (Omnipaque 350 Inj) 10 ml STK-MED ONCE OTHER Last administered on at 15:48; Start 10/15/17 at 16:03; Stop 10/15/17 at 16:04; Status DC Daptomycin 600 mg/ Sodium Chloride 100 ml @ 200 mls/hr Q48H IV Last administered on 10/26/17at 08:42; Start 10/18/17 at 09:00; Stop 10/26/17 at 12:25 ; Status DC Gabapentin (Neurontin) 200 mg TID PO Last administered on 10/30/17at 12:37; Start 10/17/17 at 13:00 Warfarin Sodium (Coumadin) 5 mg ONCE ONCE PO Last administered on 10/17/17at 17: 22; Start 10/17/17 at 16:00; Stop 10/17/17 at 16:01; Status DC Warfarin Sodium (Coumadin) 5 mg ONCE ONCE PO Last administered on 10/18/17at 15: 56; Start 10/18/17 at 16:00; Stop 10/18/17 at 16:01; Status DC Sodium Chloride 250 ml @ 15 mls/hr ONCE ONCE IV ; Start 10/19/17 at 07:15; Stop 10/19/17 at 23:54; Status DC Acetaminophen (Tylenol) 650 mg Q4H PRN PO SEE LABEL COMMENTS; Start 10/19/17 at 07:15; Stop 10/19/17 at 23:59; Status DC Diphenhydramine HCl (Benadryl) 25 mg Q4H PRN PO SEE LABEL COMMENTS; Start at 07:15; Stop 10/19/17 at 23:59; Status DC Warfarin Sodium (Coumadin) GIVE 5MG IF INR < 1.2 G... DAILY@1000 PO ; Start 05/30 at 10:00; Stop 10/21/17 at 08:59; Status DC Warfarin Sodium (Coumadin) 10 mg ONCE ONCE PO Last administered on 10/19/17at 16 :20; Start 10/19/17 at 16:00; Stop 10/19/17 at 16:01; Status DC Heparin Sodium (Porcine) (*HEPARIN CENTRAL FLUSH PERIprocedural ONLY) 500 units STK-MED ONCE IV FLUSH ; Start 10/19/17 at 11:24; Stop 10/19/17 at 11:25; Status DC Warfarin Sodium (Coumadin) 10 mg ONCE ONCE PO Last administered on 10/20/17at 09:56; Start 10/20/17 at 10:00; Stop 10/20/17 at 10:01; Status DC Warfarin Sodium (Coumadin) 5 mg DAILY@1600 PO Last administered on 10/21/17at 16 :00; Start 10/21/17 at 16:00; Stop 10/25/17 at 12:09; Status DC Bisacodyl (Dulcolax Supp) 10 mg DAILY PRN RECTAL CONSTIPATION Last administered on 10/28/17at 14:42; Start 10/21/17 at 12:45 Sodium Biphosphate/ Sodium Phosphate (Fleets Enema (Adult)) 133 ml ONCE ONCE GA Last administered on 10/21/17at 12:00; Start 10/21/17 at 12:00; Stop at 13:10; Status DC Amlodipine Besylate (Norvasc) 5 mg DAILY PO Last administered on 10/30/17at 09: 26; Start 10/22/17 at 11:00 Clonidine (Catapres) 0.1 mg Q6H PRN PO bp>160/90; Start 10/22/17 at 10:00 Phytonadione (Vitamin K Inj) 10 mg ONCE ONCE SQ Last administered on at 17:44; Start 10/22/17 at 16:15; Stop 10/22/17 at 16:16; Status DC Vancomycin HCl 1000 mg/Sodium Chloride 250 ml @ 250 mls/hr FORGE HEATER IV Last administered on 10/23/17at 11:28; Start 10/23/17 at 10:30; Stop 10/27/17 at 10:29 ; Status DC Cefazolin Sodium/ Dextrose 50 ml @ 100 mls/hr FORGE HEATER IV ; Start 10/23/17 at 10:30; Stop 10/27/17 at 10:29; Status DC Lidocaine/ Epinephrine (Xylocaine-Epi 1%-1:100,000 Inj) 30 ml STK-MED ONCE .ROUTE Last administered on 10/23/17at 12:45; Start 10/23/17 at 11:56; Stop at 11:57; Status DC Heparin Sodium (Porcine) (*HEPARIN CENTRAL FLUSH PERIprocedural ONLY) 500 units STK-MED ONCE IV FLUSH ; Start 10/23/17 at 11:57; Stop 10/23/17 at 11:58; Status DC Midazolam HCl (Versed Inj) 4 mg STK-MED ONCE .ROUTE Last administered on at 11:59; Start 10/23/17 at 11:59; Stop 10/23/17 at 12:00; Status DC Fentanyl Citrate (fentaNYL INJ) 250 mcg STK-MED ONCE .ROUTE Last administered on 10/23/17at 11:59; Start 10/23/17 at 11:59; Stop 10/23/17 at 12:00; Status DC Warfarin Sodium (Coumadin) 5 mg DAILY@1600 PO Last administered on 10/27/17at 16 :18; Start 10/26/17 at 16:00; Stop 10/28/17 at 07:41; Status DC Warfarin Sodium (Coumadin) 10 mg ONCE ONCE PO Last administered on 10/25/17at 16:09; Start 10/25/17 at 16:00; Stop 10/25/17 at 16:01; Status DC Patient Medication Teaching (Coumadin Booklet) 1 ONCE ONCE OTHER ; Start at 16:00; Stop 10/25/17 at 16:01; Status DC Daptomycin 900 mg/ Sodium Chloride 100 ml @ 200 mls/hr Q24H IV Last administered on 10/30/17at 09:27; Start 10/27/17 at 09:00 Fluticasone Propionate (Flonase David Spr) 2 spray DAILY NASAL Last administered on 10/30/17at 09:27; Start 10/27/17 at 14:30 Warfarin Sodium (Coumadin) 5 mg ONCE ONCE PO ; Start 10/28/17 at 07:45; Stop at 07:45; Status DC Warfarin Sodium (Coumadin) 5 mg DAILY@1600 PO ; Start 10/29/17 at 16:00; Stop at 16:00; Status DC Midazolam HCl (Versed Inj) 2 mg STK-MED ONCE .ROUTE Last administered on at 10:09; Start 10/29/17 at 09:25; Stop 10/29/17 at 09:26; Status DC Midazolam HCl (Versed Inj) 2 mg STK-MED ONCE .ROUTE Last administered on at 10:09; Start 10/29/17 at 09:25; Stop 10/29/17 at 09:26; Status DC Fentanyl Citrate (fentaNYL INJ) 250 mcg STK-MED ONCE .ROUTE Last administered on 10/29/17at 10:09; Start 10/29/17 at 09:25; Stop 10/29/17 at 09:26; Status DC Cefepime HCl 2000 mg/Sodium Chloride 100 ml @ 200 mls/hr Q12H IV Last administered on 10/30/17at 11:36; Start 10/30/17 at 11:00 Date of Insertion: Oct 05, 2017 A/P Problem List: (1) Abscess in epidural space of lumbar spine ICD Code: G06.1 - Intraspinal abscess and granuloma (2) Gram-positive bacteremia ICD Code: R78.81 - Bacteremia Assessment and Plan 62-year-old female with Abscess in the epidural space of lumbar spine Spiking fevers-resolved s/p irrigation and debridement and redo laminectomy L4-5 by orthopedic surgery Wound positive for MRSA. Currently on Cubicin per ID. Follow-up [facility] Pain management with Lortab and morphine sulfate consult regarding narcotics Bedrest per Ortho Continue Perez catheter per orthopedic recommendations secondary to surgical procedure port removal and replacement has been attempted by IR but was not successful, patient is not candidate for port placement in the chest secondary to fibrosis CSF leak status post LP and lumbar subarachnoid drain placement by IR. CSF counts and Gram stain MEDS ADJUSTED BY ID on daptomycin and cefepime Headache-Resolved Acute renal failure>>resolving Nephrology input appreciated Renal indices improving. Monitor and avoid nephrotoxins SUMIT inhibitor on hold Staph hominis and coag negative bacteremia. Resolved Currently on Daptomycin and cefepime Repeat blood culture NTD ID [id number] Normochromic normocytic anemia likely secondary to infection Previously transfused 1 unit PRBC, transfused 1 unit 10/19/17 Negative Hemoccult 1 Continue ferrous sulfate for iron deficiency anemia Hypoalbuminemia The decrease of serum concentrations of Albumin 2/2 acute episode of infection Prealbumin 15 Ensure added to Diet Treat above infection with IV antibiotic per ID Urinary incontinence - UA unremarkable Outpatient follow-up with urology if persist Dyslipidemia --hold statin as patient currently on Cubicin Hypertension - Continue Norvasc Allergies. Flonase Constipation continue Colace DVT prophylaxis:on Coumadin (held for IR procedure) per Alinda labs Discharge Planning [facility] Jake Kearns DO Oct 30, 2017 14:07
--- NOTE | 2017-10-30 15:17 | HHI.NSPN ---
History Chief Complaint: A little headache. Interval History 10/27: 62-year-old female with history of lumbar stenosis underwent L4 5 decompressive hemilaminectomy, bilateral foraminotomy, repair of small dural leak left L4 5 level with DuraGen and fibrin glue on 09/24/2017. She was discharged in stable condition with home health care. She presented to the emergency room 10/01/17 with some leaking from the incision site. No fevers reported. She was kept at flat bedrest. Due to persistent CSF leak, she underwent irrigation and debridement and drainage of abscess at the L4 5 level on 2017. She was seen by infectious disease, , started on vancomycin with initial cultures indicating MRSA. Vancomycin was initially discontinued and changed to daptomycin due to acute renal failure. She was placed back on bed rest postoperatively, started out of bed with therapy from 10/12/2017 until 10/16/2017 when she was noted to have persistent fluid leakage at the incision site. She has been back at bed rest since then. An MRI on 10/15/2017 revealed some fluid tracking up along the posterior spinal canal from L4 5 laminectomy site to the thoracolumbar junction. Approximately 3 x 12 cm fluid collection in the mid to upper lumbar midline extending towards the skin surface. The patient was briefly examined by the undersigned initially on 10/24/2017 at which time she was noted to have very minimal drainage from the upper aspect of the midline lumbar incision was otherwise dry and intact incision, intact lower extremity motor function, and MRI reviewed. Findings were discussed with orthopedic surgery as well as radiology with plans for follow-up MRI scan in order to determine any progression of the fluid collection within the spinal canal prior to consideration of lumbar subarachnoid drain. Follow-up MRI of the lumbar spine 10/25/2017 has been completed and reveals resolution of the probable intradural fluid collection, with moderate persistent soft tissue fluid collection in the mid to upper lumbar region. Ms. Malloy complains of intermittent moderate low back pain. She has mild numbness in the lower extremities which she states is relatively chronic. No significant radiating pain in the lower extremities. No complaining of bowel or bladder dysfunction. No complaining of fevers or chills. No significant headache. No blurred vision or diplopia. 10/28: She has not noted any drainage from the incision over the past day. Her dressing was changed per nursing staff just prior to my visit today and was relatively dry without significant drainage. 10/29: The patient went for a lumbar subarachnoid drain placement by Interventional Radiology this morning. When seen this evening the patient is awake and watching TV. She has no complaint of headache but does say her legs are throbbing. The dressing is intact to drain insertion site but it is rolled down at the top slightly. The back was nontender to palpation. She weakly moved the lower extremities. There is no change in her chronic numbness to the lower extremities. 10/30: The patient is asleep when seen this afternoon. She does say she has a slight headache. She denied any back or extremity pain or any change in her chronic extremity numbness. Her assessment is essentially unchanged from yesterday. The patient does state that she does not feel any weakness to the extremities and that she is moving them normally for her. Nursing reports that the drain was clamped until 0300 this morning. Then from 0300 until the morning shift the patient drain 80 mL. Nursing reported that the patient had a severe headache and she raised the drain and then clamped it. Since then the patient has put out 5 mL at 1400. Nursing reports that the patient is frequently raising and lowering her bed without the knowledge of the Nursing staff affecting how the drain is working. Exam Results 10/28/17 10/28/17 10/29/17 10/29/17 10/30/17 10/30/17 06: 18: 06:00 18:00 06:00 18:00 Intake Total 1500 ml 1320 ml 1840 ml 240 ml 240 ml Output Total 1000 ml 2700 ml 2200 ml 1400 ml 2560 ml Balance 500 ml -1380 ml -360 ml -1160 ml -2320 ml Intake Oral 500 ml 1320 ml 840 ml 240 ml 240 ml IV Total 1000 ml 1000 ml Output Urine Total 1000 ml 2700 ml 2200 ml 1400 ml 2475 ml Drainage Total 85 ml # Bowel Movements 0 1 0 Vital Signs Date Time Temp Pulse Resp B/P (MAP) Pulse Ox O2 Delivery O2 Flow Rate FiO2 10/30/17 11:50 97.6 82 20 165/66 (99) 93 10/30/17 08:13 98.6 68 18 161/63 (95) 93 10/30/17 08:00 93 Room Air 10/30/17 04:35 98.7 64 18 129/58 (81) 98 10/30/17 00:06 98.8 67 18 120/56 (77) 98 10/29/17 20:38 98.7 59 18 101/55 (70) 98 10/29/17 19:00 Nasal Cannula 2.00 10/29/17 16:58 98.1 59 18 128/59 (82) 92 10/29/17 14:30 58 16 141/70 (93) 100 10/29/17 14:00 59 16 146/78 (100) 100 10/29/17 13:30 59 16 146/77 (100) 100 10/29/17 13:00 58 16 121/68 (85) 100 10/29/17 12:30 59 16 97/51 (66) 100 10/29/17 11:55 57 16 107/69 (82) 100 10/29/17 11:25 80 16 113/58 (76) 100 10/29/17 11:10 80 16 116/62 (80) 100 10/29/17 10:55 97.5 63 16 115/66 (82) 100 10/29/17 08:00 96.3 63 16 139/64 (89) 99 10/29/17 08:00 Nasal Cannula 2.00 10/29/17 00:00 97.6 68 18 121/59 (79) 94 10/28/17 20:00 96.6 65 18 138/62 (87) 93 10/28/17 16:00 96.4 68 18 166/72 (103) 96 10/28/17 12:00 97.0 65 17 126/58 (80) 96 10/28/17 08:00 Nasal Cannula 2.00 10/28/17 08:00 97.3 70 16 136/60 (85) 92 10/28/17 00:00 98.4 63 18 108/66 (80) 94 10/27/17 23:57 Nasal Cannula 2.00 10/27/17 20:00 97.3 89 18 119/59 (79) 94 10/27/17 16:00 97.7 58 16 122/61 (81) 94 Physical Examination GENERAL: Patient asleep in bed but awakens to voice. She is alert and readily interacts after that. Affect essentially flat. No apparent distress. HEENT: Normocephalic, atraumatic. MUSCULOSKELETAL: Moves all extremities spontaneously & purposefully. Right foot TTP. Dressing intact to lower back but slightly rolled down from the superior edge, NTTP. NEUROLOGICAL: AAOx3. Speech clear & appropriate. Follows simple command w/o difficulty. Sensation decreased to distal BLE chronically w/o change, o/w intact to light touch to the BLE. Moves BLE weakly but is normal for the patient. Lumbar subarachnoid drain is at shoulder height w/straw-coloured CSF drainage in the collection chamber. Lab, Micro, Other Results Recent Impressions Lumbar Puncture Fluoroscopy 10/29/17 0000 Signed Impressions: Service Date/Time: Sunday, October 29, 2017 09:12 - CONCLUSION: Uncomplicated lumbar drain placement as above. Foreign Blancas MD Laboratory Tests Test 10/27/17 16:45 10/29/17 10:28 10/30/17 06:04 Total Creatine Kinase 165 U/L CSF Volume (Tube 1) 4.0 ML CSF Supernatant Color (tube 1) CLEAR CSF Gross Blood (Tube 1) 0 CSF Volume (Tube 2) 3.0 ML CSF Supernatant Color (tube 2) CLEAR CSF Gross Blood (Tube 2) 0 CSF Volume (Tube 3) 3.0 ML CSF Supernatant Color (tube 3) CLEAR CSF Gross Blood (Tube 3) 0 CSF Volume (Tube 4) 3.0 ML CSF Supernatant Color (tube 4) CLEAR CSF Gross Blood (Tube 4) 0 CSF WBC (Tube 4) 8 /MM3 CSF RBC (Tube 4) 10 /MM3 CSF Neutrophils 0 % CSF Lymphocytes 80 % CSF Monocytes 20 % CSF Glucose 52 MG/DL CSF Total Protein 31.4 MG/DL White Blood Count 5.7 TH/MM3 Red Blood Count 3.25 MIL/MM3 Hemoglobin 9.2 GM/DL Hematocrit 29.2 % Mean Corpuscular Volume 90.0 FL Mean Corpuscular Hemoglobin 28.4 PG Mean Corpuscular Hemoglobin Concent 31.6 % Red Cell Distribution Width 17.4 % Platelet Count 292 TH/MM3 Mean Platelet Volume 7.8 FL Neutrophils (%) (Auto) 70.5 % Lymphocytes (%) (Auto) 21.2 % Monocytes (%) (Auto) 5.2 % Eosinophils (%) (Auto) 2.6 % Basophils (%) (Auto) 0.5 % Neutrophils # (Auto) 4.0 TH/MM3 Lymphocytes # (Auto) 1.2 TH/MM3 Monocytes # (Auto) 0.3 TH/MM3 Eosinophils # (Auto) 0.1 TH/MM3 Basophils # (Auto) 0.0 TH/MM3 CBC Comment DIFF FINAL Differential Comment Prothrombin Time 11.0 SEC Prothromb Time International Ratio 1.1 RATIO Blood Urea Nitrogen 34 MG/DL Creatinine 1.22 MG/DL Random Glucose 103 MG/DL Calcium Level 9.9 MG/DL Magnesium Level 2.3 MG/DL Sodium Level 136 MEQ/L Potassium Level 4.7 MEQ/L Chloride Level 99 MEQ/L Carbon Dioxide Level 28.6 MEQ/L Anion Gap 8 MEQ/L Estimat Glomerular Filtration Rate 54 ML/MIN Medical Decision Making Impression and Plan Impression: 1. Postoperative CSF leak. There is actually very minimal drainage from the incision over the past few days. Previous fluid collection within the subdural space resolved on most recent MRI. No evidence of active infection. Patient continues to do well w/the lumbar subarachnoid drain in place. Slight headache. No change in neuro status. Hypertension. Reviewed labs for today. Improvement in anaemia. Improvement in renal function. POD #1 () s/p: Lumbar subarachnoid drain placement by Interventional Radiology Plan: Primary management per Hospitalist. Keep the HOB as low as the patient will tolerate. Place the lumbar drain at shoulder height. Leave drain open. Monitor & record ouptut every 8 hours. If output is <30 mL over 8 hrs lower drain by 2 cm. If output is >50 mL over 8 hrs raise drain by 2 cm. Goal is 90 to 150 mL in a 24 hr period. Bedrest with drain in place for at least 5 days then clamped drain for 24 hours and discontinue if no evidence of persistent CSF leakage. Recommend having patient raise HOB to level of comfort and adjust drain to that position and then lock out ability to raise HOB. Jj Thorpe Oct 30, 2017 15:17
[2017-10-30 16:51] VITALS: BP 103/55; PULSE 76; RESP 20; TEMP 99.6; O2SAT 99
[2017-10-30] MEDS: DEXTROSE 5%-LACTATED RING INJ 1,000 ML IV SCH (18:28)
[2017-10-30 20:30] VITALS: BP 127/60; PULSE 71; RESP 17; TEMP 98; O2SAT 96
[2017-10-31 00:30] VITALS: BP 120/80; PULSE 80; RESP 18; TEMP 98; O2SAT 98
[2017-10-31] MEDS: ACETAMINOPHEN/HYDROcodone 325 MG/7.5 MG TAB PO PRN ×4 (02:03→22:20)
[2017-10-31] MEDS: MORPHINE SULFATE 4 MG/ML INJ IV PUSH PRN ×4 (03:10→23:38)
[2017-10-31 04:45] VITALS: BP 127/77; PULSE 70; RESP 22; TEMP 98.6; O2SAT 97
--- NOTE | 2017-10-31 07:35 | PD.ORT.PN ---
Subjective Subjective Remarks POD # 26 Lumbar spine I&D MRSA No c/o headache or leg pain today Patient states she feels good Discussed with patient results of MRI Scan and discussions with Dr Wadsworth.Will clamp LP drain later in week ,if no drainage when OOB will D/C LP drain at that time Objective Vitals Vital Signs Date Time Temp Pulse Resp B/P (MAP) Pulse Ox O2 Delivery O2 Flow Rate FiO2 10/31/17 00:30 98.0 80 18 120/80 (93) 98 10/30/17 20:30 98.0 71 17 127/60 (82) 96 10/30/17 20:00 Nasal Cannula 2.00 10/30/17 16:51 99.6 76 20 103/55 (71) 99 10/30/17 11:50 97.6 82 20 165/66 (99) 93 10/30/17 08:13 98.6 68 18 161/63 (95) 93 10/30/17 08:00 93 Room Air I/O 10/30/17 10/30/17 10/30/17 10/31/17 10/31/17 10/31/17 07:00 15:00 23:00 07:00 15:00 23:00 Intake Total 480 ml 1820 ml Output Total 1700 ml 1710 ml 1211 ml Balance -1220 ml -1710 ml 609 ml Intake Oral 480 ml 1820 ml Output Urine Total 1700 ml 1625 ml 1200 ml Drainage Total 85 ml 11 ml # Bowel Movements 0 Result Diagram: 10/30/17 0604 10/30/17 0604 Objective Remarks Alfonso cath in place LP drain in place;CSF clear Lumbar dressing no drainage, no erythema motor +5/5 to LE Neurologically no focal deficit. Assessment & Plan Assessment and Plan pod #26 s/p lumbar spine I&D with MRSA infection LP drain on 3 Unable to replace infusaport by IR 10/23 No headache;recurrent wound drainage; clinically patient looks good Did discuss with the patient today the recommended future care. I discussed with Dr. Nelson Wadsworth of neurosurgery and Dr. Justin Posada of interventional radiology her lumbar spine disorder. Will clamp LP drain later in week ,if no drainage when OOB will D/C LP drain at that time Continue antibiotics per I.D. ; vanco was stopped due to acute renal failure and cubicin was started, nephrology following Bedrest with no higher than 30 degrees of elevation of bed Coumadin 10 mg today for DVT;no longer need daily Pt/INRs, check twice a week( Sunday,). Await Dietary consult, eval for assistance and management of malnutrition. Ensure plus 1 can TID. Continue alfonso cath. Pt was urinating on herself in bed and there is concern about effect on lumbar spine wound. Medical team evaluating and treating anemia. Dylan Martin MD Oct 31, 2017 07:35
[2017-10-31] MEDS ORDERED: WARFARIN SOD 10 MG TAB PO ONE (08:00)
[2017-10-31 08:15] VITALS: BP 97/52; PULSE 59; RESP 17; TEMP 98.8; O2SAT 96
[2017-10-31] MEDS: FLUTICASONE PROPIONATE 50 MCG/ACT 16 GM NASAL SPRAY NASAL SCH (09:00)
[2017-10-31 09:40] LABS: ALBUMIN 2.9 GM/DL (3.4-5.0); BICARBONATE 28.6 MEQ/L (21.0-32.0); BLOOD UREA NITROGEN 27 MG/DL (7-18); CALCIUM 9.6 MG/DL (8.5-10.1); CHLORIDE 101 MEQ/L (98-107); CREATININE 1.23 MG/DL (0.50-1.00); GLOMERULAR FILTRATION RATE 54 ML/MIN (>89); GLUCOSE,RANDOM 105 MG/DL (74-106); MAGNESIUM 2.2 MG/DL (1.5-2.5); SODIUM (NA) 138 MEQ/L (136-145)
[2017-10-31 09:42] LABS: ALT (GPT) 21 U/L (10-53); AST (GOT) 20 U/L (15-37); PHOSPHORUS 4.9 MG/DL (2.5-4.9)
[2017-10-31] MEDS: DAPTOmycin INJ 900 MG in SODIUM CHLORIDE 0.9% INJ 100 ML IV SCH (09:42)
[2017-10-31] MEDS: FERROUS SULFATE 325 MG (65 MG ELEMENTAL IRON) TAB PO SCH ×2 (09:42→22:21)
[2017-10-31] MEDS: MULTIVITAMINS/MINERALS THERAPEUTIC TAB PO SCH ×2 (09:42→22:21)
[2017-10-31] MEDS: DOCUSATE SODIUM 100 MG CAP PO SCH ×2 (09:42→21:00)
[2017-10-31] MEDS: GABAPENTIN 100 MG CAP PO SCH ×3 (09:43→17:29)
[2017-10-31] MEDS: amLODIPine BESYLATE 5 MG TAB PO SCH (09:43)
[2017-10-31] MEDS: PANTOPRAZOLE SOD 20 MG DELAYED RELEASE TAB PO SCH (09:43)
[2017-10-31] MEDS: SODIUM CHLORIDE 0.9% FLUSH 10 ML FLUSH IV FLUSH PRN (09:44)
[2017-10-31 09:50] LABS: ALKALINE PHOSPHATASE 93 U/L (45-117); FREE T4 0.56 NG/DL (0.76-1.46); TOTAL BILIRUBIN ADULT 0.4 MG/DL (0.2-1.0); TOTAL PROTEIN 7.7 GM/DL (6.4-8.2)
[2017-10-31 12:10] VITALS: BP 112/61; PULSE 57; RESP 18; TEMP 97.2; O2SAT 95
[2017-10-31] MEDS: CEFEPIME INJ 2,000 MG in SODIUM CHLORIDE 0.9% INJ 100 ML IV SCH (12:11)
[2017-10-31] MEDS: DEXTROSE 5%-LACTATED RING INJ 1,000 ML IV SCH (14:39)
--- NOTE | 2017-10-31 15:53 | HHI.NSPN ---
(Jj ThorpeTristen NURSES SUPERINTENDENT) History Chief Complaint: No complaints (Jj ThorpeTristen NURSES SUPERINTENDENT) Interval History 10/27: 62-year-old female with history of lumbar stenosis underwent L4 5 decompressive hemilaminectomy, bilateral foraminotomy, repair of small dural leak left L4 5 level with DuraGen and fibrin glue on 09/24/2017. She was discharged in stable condition with home health care. She presented to the emergency room 10/01/17 with some leaking from the incision site. No fevers reported. She was kept at flat bedrest. Due to persistent CSF leak, she underwent irrigation and debridement and drainage of abscess at the L4 5 level on 2017. She was seen by infectious disease, , started on vancomycin with initial cultures indicating MRSA. Vancomycin was initially discontinued and changed to daptomycin due to acute renal failure. She was placed back on bed rest postoperatively, started out of bed with therapy from 10/12/2017 until 10/16/2017 when she was noted to have persistent fluid leakage at the incision site. She has been back at bed rest since then. An MRI on 10/15/2017 revealed some fluid tracking up along the posterior spinal canal from L4 5 laminectomy site to the thoracolumbar junction. Approximately 3 x 12 cm fluid collection in the mid to upper lumbar midline extending towards the skin surface. The patient was briefly examined by the undersigned initially on 10/24/2017 at which time she was noted to have very minimal drainage from the upper aspect of the midline lumbar incision was otherwise dry and intact incision, intact lower extremity motor function, and MRI reviewed. Findings were discussed with orthopedic surgery as well as radiology with plans for follow-up MRI scan in order to determine any progression of the fluid collection within the spinal canal prior to consideration of lumbar subarachnoid drain. Follow-up MRI of the lumbar spine 10/25/2017 has been completed and reveals resolution of the probable intradural fluid collection, with moderate persistent soft tissue fluid collection in the mid to upper lumbar region. Ms. Malloy complains of intermittent moderate low back pain. She has mild numbness in the lower extremities which she states is relatively chronic. No significant radiating pain in the lower extremities. No complaining of bowel or bladder dysfunction. No complaining of fevers or chills. No significant headache. No blurred vision or diplopia. 10/28: She has not noted any drainage from the incision over the past day. Her dressing was changed per nursing staff just prior to my visit today and was relatively dry without significant drainage. 10/29: The patient went for a lumbar subarachnoid drain placement by Interventional Radiology this morning. When seen this evening the patient is awake and watching TV. She has no complaint of headache but does say her legs are throbbing. The dressing is intact to drain insertion site but it is rolled down at the top slightly. The back was nontender to palpation. She weakly moved the lower extremities. There is no change in her chronic numbness to the lower extremities. 10/30: The patient is asleep when seen this afternoon. She does say she has a slight headache. She denied any back or extremity pain or any change in her chronic extremity numbness. Her assessment is essentially unchanged from yesterday. The patient does state that she does not feel any weakness to the extremities and that she is moving them normally for her. Nursing reports that the drain was clamped until 0300 this morning. Then from 0300 until the morning shift the patient drain 80 mL. Nursing reported that the patient had a severe headache and she raised the drain and then clamped it. Since then the patient has put out 5 mL at 1400. Nursing reports that the patient is frequently raising and lowering her bed without the knowledge of the Nursing staff affecting how the drain is working. 10/31: When seen this afternoon the patient is awake and alert talking with the Programmer Or Analyst. She has no complaints when seen. There is no change in her neuro exam. The dressing to the lumbar drain had been rolled up from the insertion site and the surgical incision dressing was off. The bedding under her was wet with yellow drainage. (Jj Thorpe) Exam Results 10/29/17 10/29/17 10/30/17 10/30/17 10/31/17 10/31/17 06:00 18:00 06:00 18:00 06:00 18:00 Intake Total 1840 ml 240 ml 960 ml 2650 ml 480 ml Output Total 2200 ml 1400 ml 2571 ml 2400 ml 1036 ml Balance -360 ml -1160 ml -1611 ml 250 ml -556 ml Intake Oral 840 ml 240 ml 960 ml 2650 ml 480 ml IV Total 1000 ml Output Urine Total 2200 ml 1400 ml 2475 ml 2400 ml 1000 ml Drainage Total 96 ml 36 ml # Bowel Movements 0 0 Vital Signs Date Time Temp Pulse Resp B/P (MAP) Pulse Ox O2 Delivery O2 Flow Rate FiO2 10/31/17 12:10 97.2 57 18 112/61 (78) 95 10/31/17 08:15 98.8 59 17 97/52 (67) 96 10/31/17 08:05 Room Air 10/31/17 04:45 98.6 70 22 127/77 (94) 97 10/31/17 00:30 98.0 80 18 120/80 (93) 98 10/30/17 20:30 98.0 71 17 127/60 (82) 96 10/30/17 20:00 Nasal Cannula 2.00 10/30/17 16:51 99.6 76 20 103/55 (71) 99 10/30/17 11:50 97.6 82 20 165/66 (99) 93 10/30/17 08:13 98.6 68 18 161/63 (95) 93 10/30/17 08:00 93 Room Air 10/30/17 04:35 98.7 64 18 129/58 (81) 98 10/30/17 00:06 98.8 67 18 120/56 (77) 98 10/29/17 20:38 98.7 59 18 101/55 (70) 98 10/29/17 19:00 Nasal Cannula 2.00 10/29/17 16:58 98.1 59 18 128/59 (82) 92 10/29/17 14:30 58 16 141/70 (93) 100 10/29/17 14:00 59 16 146/78 (100) 100 10/29/17 13:30 59 16 146/77 (100) 100 10/29/17 13:00 58 16 121/68 (85) 100 10/29/17 12:30 59 16 97/51 (66) 100 10/29/17 11:55 57 16 107/69 (82) 100 10/29/17 11:25 80 16 113/58 (76) 100 10/29/17 11:10 80 16 116/62 (80) 100 10/29/17 10:55 97.5 63 16 115/66 (82) 100 10/29/17 08:00 96.3 63 16 139/64 (89) 99 10/29/17 08:00 Nasal Cannula 2.00 10/29/17 00:00 97.6 68 18 121/59 (79) 94 10/28/17 20:00 96.6 65 18 138/62 (87) 93 10/28/17 16:00 96.4 68 18 166/72 (103) 96 (Jj Thorpe) Results GENERAL: Patient awake & alert in bed talking with the Programmer Or Analyst. Her affect remains flat but she readily interacts. She is not in any apparent distress. HEENT: Normocephalic, atraumatic. MUSCULOSKELETAL: Moves all extremities spontaneously & purposefully. Dressings rolled up from lumbar surgical incision & lumbar drain insertion site, NTTP. NEUROLOGICAL: AAOx3. Speech clear & appropriate. Follows simple command w/o difficulty. Sensation decreased to distal BLE chronically w/o change, o/w intact to light touch to the extremities. Moves all extremities weakly but is normal for the patient. Lumbar subarachnoid drain is at shoulder height w/straw-coloured CSF drainage in the collection chamber. Skin warm and dry (Epi Ahn MD) Physical Examination GENERAL: Patient awake & alert in bed talking with the Programmer Or Analyst. Her affect remains flat but she readily interacts. She is not in any apparent distress. HEENT: Normocephalic, atraumatic. MUSCULOSKELETAL: Moves all extremities spontaneously & purposefully. Dressings rolled up from lumbar surgical incision & lumbar drain insertion site, NTTP. NEUROLOGICAL: AAOx3. Speech clear & appropriate. Follows simple command w/o difficulty. Sensation decreased to distal BLE chronically w/o change, o/w intact to light touch to the extremities. Moves all extremities weakly but is normal for the patient. Lumbar subarachnoid drain is at shoulder height w/straw-coloured CSF drainage in the collection chamber. (Jj Thorpe) Lab, Micro, Other Results Recent Impressions Lumbar Puncture Fluoroscopy 10/29/17 0000 Signed Impressions: Service Date/Time: Sunday, October 29, 2017 09:12 - CONCLUSION: Uncomplicated lumbar drain placement as above. Foreign Blancas MD Laboratory Tests Test 10/29/17 10:28 10/30/17 06:04 10/31/17 08:49 CSF Volume (Tube 1) 4.0 ML CSF Supernatant Color (tube 1) CLEAR CSF Gross Blood (Tube 1) 0 CSF Volume (Tube 2) 3.0 ML CSF Supernatant Color (tube 2) CLEAR CSF Gross Blood (Tube 2) 0 CSF Volume (Tube 3) 3.0 ML CSF Supernatant Color (tube 3) CLEAR CSF Gross Blood (Tube 3) 0 CSF Volume (Tube 4) 3.0 ML CSF Supernatant Color (tube 4) CLEAR CSF Gross Blood (Tube 4) 0 CSF WBC (Tube 4) 8 /MM3 CSF RBC (Tube 4) 10 /MM3 CSF Neutrophils 0 % CSF Lymphocytes 80 % CSF Monocytes 20 % CSF Glucose 52 MG/DL CSF Total Protein 31.4 MG/DL White Blood Count 5.7 TH/MM3 Red Blood Count 3.25 MIL/MM3 Hemoglobin 9.2 GM/DL Hematocrit 29.2 % Mean Corpuscular Volume 90.0 FL Mean Corpuscular Hemoglobin 28.4 PG Mean Corpuscular Hemoglobin Concent 31.6 % Red Cell Distribution Width 17.4 % Platelet Count 292 TH/MM3 Mean Platelet Volume 7.8 FL Neutrophils (%) (Auto) 70.5 % Lymphocytes (%) (Auto) 21.2 % Monocytes (%) (Auto) 5.2 % Eosinophils (%) (Auto) 2.6 % Basophils (%) (Auto) 0.5 % Neutrophils # (Auto) 4.0 TH/MM3 Lymphocytes # (Auto) 1.2 TH/MM3 Monocytes # (Auto) 0.3 TH/MM3 Eosinophils # (Auto) 0.1 TH/MM3 Basophils # (Auto) 0.0 TH/MM3 CBC Comment DIFF FINAL Differential Comment Prothrombin Time 11.0 SEC Prothromb Time International Ratio 1.1 RATIO Blood Urea Nitrogen 34 MG/DL 27 MG/DL Creatinine 1.22 MG/DL 1.23 MG/DL Random Glucose 103 MG/DL 105 MG/DL Calcium Level 9.9 MG/DL 9.6 MG/DL Magnesium Level 2.3 MG/DL 2.2 MG/DL Sodium Level 136 MEQ/L 138 MEQ/L Potassium Level 4.7 MEQ/L 4.5 MEQ/L Chloride Level 99 MEQ/L 101 MEQ/L Carbon Dioxide Level 28.6 MEQ/L 28.6 MEQ/L Anion Gap 8 MEQ/L 8 MEQ/L Estimat Glomerular Filtration Rate 54 ML/MIN 54 ML/MIN Total Protein 7.7 GM/DL Albumin 2.9 GM/DL Phosphorus Level 4.9 MG/DL Alkaline Phosphatase 93 U/L Aspartate Amino Transf (AST/SGOT) 20 U/L Alanine Aminotransferase (ALT/SGPT) 21 U/L Total Bilirubin 0.4 MG/DL Free Thyroxine 0.56 NG/DL Thyroid Stimulating Hormone 3rd Gen 1.370 uIU/ML (Jj Thorpe) Medical Decision Making Impression and Plan Impression: 1. Postoperative CSF leak. There is actually very minimal drainage from the incision over the past few days. Previous fluid collection within the subdural space resolved on most recent MRI. No evidence of active infection. Patient is doing well. The dressing over the lumbar subarachnoid drain has been rolled up from movement and is not over the site. No change in neuro exam. No hypertension the past 24 hrs. Bradycardia. Reviewed labs for today. Renal function essentially stable. POD #2 () s/p: Lumbar subarachnoid drain placement by Interventional Radiology Plan: Primary management per Hospitalist. Keep the HOB as low as the patient will tolerate. Place the lumbar drain at shoulder height. Leave drain open. Monitor & record ouptut every 8 hours. If output is <30 mL over 8 hrs lower drain by 2 cm. If output is >50 mL over 8 hrs raise drain by 2 cm. Goal is 90 to 150 mL in a 24 hr period. Bedrest with drain in place for at least 5 days then clamped drain for 24 hours and discontinue if no evidence of persistent CSF leakage. Recommend having patient raise HOB to level of comfort and adjust drain to that position and then lock out ability to raise HOB. Interventional Radiology to evaluate lumbar drain positioning. (Jj Thorpe) Attending Statement The exam, history, and the medical decision-making described in the above note were completed with the assistance of the mid-level provider. I reviewed and agree with the findings presented. I attest that I had a [id number] encounter with the patient on the same day, and personally performed and documented my assessment and findings in the medical record. (Epi Ahn MD) Jj Thorpe Oct 31, 2017 15:52 Epi Ahn MD Nov 02, 2017 14:30
[2017-10-31 16:05] VITALS: BP 129/63; PULSE 60; RESP 17; TEMP 97.9; O2SAT 100
--- NOTE | 2017-10-31 16:28 | HHI.PR ---
Subjective Remarks Patient states that her headaches have improved compared to the last couple days. She is able to sit up more vertically without headache. She points out that she has a wound VAC in place in her lower back. Objective Vitals Vital Signs Date Time Temp Pulse Resp B/P (MAP) Pulse Ox O2 Delivery O2 Flow Rate FiO2 10/31/17 16:05 97.9 60 17 129/63 (85) 100 10/31/17 12:10 97.2 57 18 112/61 (78) 95 10/31/17 08:15 98.8 59 17 97/52 (67) 96 10/31/17 08:05 Room Air 10/31/17 04:45 98.6 70 22 127/77 (94) 97 10/31/17 00:30 98.0 80 18 120/80 (93) 98 10/30/17 20:30 98.0 71 17 127/60 (82) 96 10/30/17 20:00 Nasal Cannula 2.00 10/30/17 16:51 99.6 76 20 103/55 (71) 99 I/O 10/30/17 10/30/17 10/30/17 10/31/17 10/31/17 10/31/17 07:00 15:00 23:00 07:00 15:00 23:00 Intake Total 480 ml 1820 ml 1550 ml 480 ml Output Total 1700 ml 1710 ml 1211 ml 1200 ml 1036 ml Balance -1220 ml -1710 ml 609 ml 350 ml -556 ml Intake Oral 480 ml 1820 ml 1550 ml 480 ml Output Urine Total 1700 ml 1625 ml 1200 ml 1200 ml 1000 ml Drainage Total 85 ml 11 ml 36 ml # Bowel Movements 0 0 Result Diagram: 10/30/17 0604 10/31/17 0849 Objective Remarks GENERAL: Morbidly obese, extra-wide bed SKIN: Warm and dry. HEAD: Normocephalic. EYES: No scleral icterus. No injection or drainage. NECK: Supple, trachea midline. No JVD or lymphadenopathy. CARDIOVASCULAR: Regular rate and rhythm without murmurs, gallops, or rubs. RESPIRATORY: Breath sounds equal bilaterally. No accessory muscle use. GASTROINTESTINAL: Abdomen soft, non-tender, nondistended. EXTREMITIES: No cyanosis, or edema. NEUROLOGICAL: Awake, alert, and oriented x 3. Non-focal. Procedures 1. Lumbar spine irrigation and debridement, and drainage of lumbar spine abscess. 2. L4-5 decompressive laminectomy, foraminotomy, reexploration and repair of dural leak. 10/29/17 Lumbar puncture and drain placement Date of Insertion: Oct 05, 2017 A/P Problem List: (1) Abscess in epidural space of lumbar spine ICD Code: G06.1 - Intraspinal abscess and granuloma (2) Gram-positive bacteremia ICD Code: R78.81 - Bacteremia Assessment and Plan Abscess in the epidural space of lumbar spine Fevers are resolved s/p irrigation and debridement and redo laminectomy L4-5 by orthopedic surgery, bed rest recommended Wound positive for MRSA. Currently on daptomycin and cefepime per ID port removal and replacement has been attempted by IR but was not successful, patient is not candidate for port placement in the chest secondary to fibrosis Pain management with Lortab and morphine sulfate consult regarding narcotics CSF leak status post LP, headaches resolving. Subarachnoid drain placement accomplished. Acute renal failure Almost fully resolved, appreciate nephrology consult Will follow BUN and creatinine Staph hominis and coag negative bacteremia. Resolved Currently on Daptomycin and cefepime Appreciate infectious disease following Normochromic normocytic anemia likely secondary to infection 1 unit of packed red blood cells transfused on 10/19/17 Continue ferrous sulfate for iron deficiency anemia Stool occult blood was negative Urinary incontinence - Possibly due to lumbar issues Orthopedics recommends Perez Will reevaluate periodically Hypertension Continue home dose Norvasc DVT prophylaxis Coumadin Discharge planning [facility] if qualified Douglas Infante MD Oct 31, 2017 16:28
[2017-10-31 16:45] LABS: HEMATOCRIT 27.1 % (35.0-46.0); HEMOGLOBIN 8.5 GM/DL (11.6-15.3); MEAN CELL VOLUME 89.6 FL (80.0-100.0); MEAN CORPUSCULAR HGB CONC 31.2 % (32.0-36.0); MEAN PLATELET VOLUME 9.7 FL (7.0-11.0); PLATELET COUNT 264 TH/MM3 (150-450); RED BLOOD COUNT 3.03 MIL/MM3 (4.00-5.30); RED CELL DISTRIBUTION WIDTH 17.3 % (11.6-17.2); WHITE BLOOD COUNT 8.8 TH/MM3 (4.0-11.0)
[2017-10-31 18:03] LABS: LYMPHOCYTES 14 % (9-44); MONOCYTES 16 % (0-8); NEUTROPHIL # MANUAL DIFF 5.9 TH/MM3 (1.8-7.7); POLYS (SEG NEUTROPHILS) 67 % (16-70)
[2017-10-31 18:12] LABS: HEMOGLOBIN A1C 5.3 % (4.3-6.0)
--- NOTE | 2017-10-31 18:29 | HHI.IDPN ---
Note Infectious Disease Note Patient feels better. She has no headache currently. States that she had no significant headache today. Denies nausea chills or vomiting. Afebrile. Subarachnoid drainage catheter has clear CSF. 61-year-old black female who recently underwent lumbar spine surgery. The patient was treated for lumbar spine stenosis. She underwent L4-L5 bilateral decompressive hemilaminectomy along with decompression of nerve root and left side L4-L5 repair of dural leak. The patient was discharged from the hospital on September 26. She was taken to surgery and underwent incision and drainage of an lumbar abscess. PAST MEDICAL HISTORY 1. Dyslipidemia, 2. Status post laminectomy for spinal stenosis 3. Appendectomy, 4. Gastric bypass 5. Knee replacement 6. Gastroesophageal reflux disease, 7. Hysterectomy. ALLERGIES NO KNOWN DRUG ALLERGIES. MEDICATION: Current Medications Medications (Trade) Dose Ordered Sig/Kylah Route PRN Reason Start Time Stop Time Status Last Admin Dose Admin Dextrose/Lactated Ringer's 1,000 ml @ 50 mls/hr Q20H IV 10/05/17 12:00 10/28/17 20:00 Sodium Chloride (NS Flush) 5 ml UNSCH PRN IV FLUSH SEE PROTOCOL TABLE 10/05/17 14:00 10/31/17 09:44 Heparin Sodium (Porcine) (Heparin Central Flush) 250 units UNSCH PRN IV FLUSH SEE PROTOCOL TABLE 10/05/17 14:00 10/23/17 13:32 Heparin Sodium (Porcine) (Heparin Central Flush) 500 units UNSCH IV FLUSH 10/05/17 14:00 10/20/17 06:24 Morphine Sulfate (Morphine Inj) 5 mg Q3H PRN IV PUSH BREAKTHROUGH PAIN 10/05/17 17:00 10/31/17 17:29 Acetaminophen/ Hydrocodone Bitart ([place] 7.5-325 Mg) 1 tab Q4H PRN PO PAIN SCALE 1 TO 5 10/05/17 17:00 10/21/17 17:45 Multivitamins/ Minerals Therapeutic (Theragran M Tab) 1 tab BID PO 10/06/17 09:00 12/05/17 08:59 10/31/17 09:42 Ondansetron HCl (Zofran Inj) 4 mg Q6H PRN IV PUSH NAUSEA OR VOMITING 10/05/17 17:00 Al Hydrox/Mg Hydrox/Simethicone (Mag-Al Plus Susp Liq) 30 ml Q6H PRN PO INDIGESTION 10/05/17 17:00 Zolpidem Tartrate (Ambien) 5 mg HS PRN PO SLEEP 10/05/17 21:00 Naloxone HCl (Narcan Inj) 0.4 mg UNSCH PRN IV PUSH RESPIRATORY RATE LESS THAN 10 10/05/17 17:00 Pravastatin Sodium (Pravachol) 40 mg DAILY PO 10/06/17 09:00 Future Hold 10/15/17 08:34 Pantoprazole Sodium (Protonix) 20 mg DAILY PO 10/06/17 09:00 10/31/17 09:43 Acetaminophen/ Hydrocodone Bitart ([place] 7.5-325 Mg) 2 tab Q4HR PRN PO PAIN SCALE 6 TO 10 10/06/17 09:00 10/31/17 16:12 Docusate Sodium (Colace) 100 mg BID PO 10/06/17 09:30 10/31/17 09:42 Acetaminophen (Tylenol) 650 mg Q4H PRN PO fever > 101 10/08/17 02:45 10/13/17 11:31 Lisinopril (Prinivil) 5 mg DAILY PO 10/10/17 09:00 Future Hold 10/15/17 08:34 Ferrous Sulfate (Ferrous Sulfate) 325 mg BID PO 10/10/17 21:00 10/31/17 09:42 Magnesium Hydroxide (Milk Of Magnesia Liq) 30 ml Q6H PRN PO CONSTIPATION 10/14/17 09:45 10/27/17 09:40 Gabapentin (Neurontin) 200 mg TID PO 10/17/17 13:00 10/31/17 17:29 Bisacodyl (Dulcolax Supp) 10 mg DAILY PRN RECTAL CONSTIPATION 10/21/17 12:45 10/28/17 14:42 Amlodipine Besylate (Norvasc) 5 mg DAILY PO 10/22/17 11:00 10/31/17 09:43 Clonidine (Catapres) 0.1 mg Q6H PRN PO bp>160/90 10/22/17 10:00 Daptomycin 900 mg/ Sodium Chloride 100 ml @ 200 mls/hr Q24H IV 10/27/17 09:00 10/31/17 09:42 Fluticasone Propionate (Flonase David Spr) 2 spray DAILY NASAL 10/27/17 14:30 10/31/17 09:00 Cefepime HCl 2000 mg/Sodium Chloride 100 ml @ 200 mls/hr Q12H IV 10/30/17 11:00 10/31/17 12:11 Warfarin Sodium (Coumadin) 5 mg DAILY@1600 PO 11/01/17 16:00 Objective Vital Signs Date Time Temp Pulse Resp B/P (MAP) Pulse Ox O2 Delivery O2 Flow Rate FiO2 10/31/17 16:05 97.9 60 17 129/63 (85) 100 10/31/17 12:10 97.2 57 18 112/61 (78) 95 10/31/17 08:15 98.8 59 17 97/52 (67) 96 10/31/17 08:05 Room Air 10/31/17 04:45 98.6 70 22 127/77 (94) 97 10/31/17 00:30 98.0 80 18 120/80 (93) 98 10/30/17 20:30 98.0 71 17 127/60 (82) 96 10/30/17 20:00 Nasal Cannula 2.00 Laboratory Tests Test 10/30/17 06:04 10/31/17 08:49 White Blood Count 5.7 TH/MM3 8.8 TH/MM3 Red Blood Count 3.25 MIL/MM3 3.03 MIL/MM3 Hemoglobin 9.2 GM/DL 8.5 GM/DL Hematocrit 29.2 % 27.1 % Mean Corpuscular Volume 90.0 FL 89.6 FL Mean Corpuscular Hemoglobin 28.4 PG 28.0 PG Mean Corpuscular Hemoglobin Concent 31.6 % 31.2 % Red Cell Distribution Width 17.4 % 17.3 % Platelet Count 292 TH/MM3 264 TH/MM3 Mean Platelet Volume 7.8 FL 9.7 FL Neutrophils (%) (Auto) 70.5 % Lymphocytes (%) (Auto) 21.2 % Monocytes (%) (Auto) 5.2 % Eosinophils (%) (Auto) 2.6 % Basophils (%) (Auto) 0.5 % Neutrophils # (Auto) 4.0 TH/MM3 Lymphocytes # (Auto) 1.2 TH/MM3 Monocytes # (Auto) 0.3 TH/MM3 Eosinophils # (Auto) 0.1 TH/MM3 Basophils # (Auto) 0.0 TH/MM3 CBC Comment DIFF FINAL AUTO DIFF Differential Comment FINAL DIFF MANUAL Differential Total Cells Counted 100 Neutrophils % (Manual) 67 % Lymphocytes % 14 % Monocytes % 16 % Eosinophils % 3 % Neutrophils # (Manual) 5.9 TH/MM3 Platelet Estimate NORMAL Platelet Morphology Comment ENLARGED Laboratory Tests Test 10/30/17 06:04 10/31/17 08:49 Blood Urea Nitrogen 34 MG/DL 27 MG/DL Creatinine 1.22 MG/DL 1.23 MG/DL Random Glucose 103 MG/DL 105 MG/DL Calcium Level 9.9 MG/DL 9.6 MG/DL Magnesium Level 2.3 MG/DL 2.2 MG/DL Sodium Level 136 MEQ/L 138 MEQ/L Potassium Level 4.7 MEQ/L 4.5 MEQ/L Chloride Level 99 MEQ/L 101 MEQ/L Carbon Dioxide Level 28.6 MEQ/L 28.6 MEQ/L Anion Gap 8 MEQ/L 8 MEQ/L Estimat Glomerular Filtration Rate 54 ML/MIN 54 ML/MIN Total Protein 7.7 GM/DL Albumin 2.9 GM/DL Phosphorus Level 4.9 MG/DL Alkaline Phosphatase 93 U/L Aspartate Amino Transf (AST/SGOT) 20 U/L Alanine Aminotransferase (ALT/SGPT) 21 U/L Total Bilirubin 0.4 MG/DL Free Thyroxine 0.56 NG/DL Thyroid Stimulating Hormone 3rd Gen 1.370 uIU/ML Microbiology Date/Time Source Procedure Growth Status 10/29/17 10:28 Cerebral Spinal Fluid Lumbar Puncture Fungal Smear - Final NO FUNGAL ELEMENTS SEEN. Resulted 10/29/17 10:28 Cerebral Spinal Fluid Lumbar Puncture Fungal Culture Pending Resulted 10/29/17 10:28 Cerebral Spinal Fluid Lumbar Puncture Gram Stain - Final Complete 10/29/17 10:28 CSF Culture - Final Klebsiella Pneumoniae Complete IMAGING: Lumbar Puncture Fluoroscopy 10/29/17 0000 Signed Impressions: Service Date/Time: Sunday, October 29, 2017 09:12 - CONCLUSION: Uncomplicated lumbar drain placement as above. Foreign Blancas MD Lumbar Spine MRI 10/25/17 0000 Signed Impressions: Service Date/Time: October 13:20 - CONCLUSION: 1. Persistent fluid collection extending from the laminectomy defect at L4-5 into the subcutaneous tissues in the midline of the back measures 4.8 cm AP x 6.8 cm TRV x 9.7 cm SAG. 2. Moderate spinal stenosis at L4-5 and mild spinal stenosis at L3-4 and L5-S1. 3. Moderate bilateral foraminal narrowing at L4-5 and L5-S1 and moderate right neural foraminal narrowing at L3-4. 4. Resolution of the previously noted CSF collection in the posterior spinal canal extending from T12 through L2. 5. Grade I anterolisthesis of L4 in relation to L5. 6. Degenerative disc disease L3-4, L4-5 and L5-S1. 7. Facet joint hypertrophy bilaterally from L3 through L5. Gio Verduzco MD Venous Access Device Injection 10/23/17 0000 Signed Impressions: Service Date/Time: Monday, October 23, 2017 11:57 - CONCLUSION: 1. The catheter tip port is at the level of the right atria. 2. The patient has complete central venous occlusion. 3. Please see above. Mati Posada MD Venogram 10/23/17 0000 Signed Impressions: Service Date/Time: Monday, October 23, 2017 11:57 - CONCLUSION: 1. The patient has complete fibrotic central venous occlusion and is not a candidate for Sottou-n-Micr placement in the upper chest. 2. The existing port which is in an appropriate location and can be used for infusion of medications or other indicated products. 3. The existing port was vigorously flushed with 20 cc of saline following this using a slow, deliberate technique blood could be withdrawn if a 3 cc syringe was used. Mati Posada MD Foreign Body Removal 10/19/17 0000 Signed Impressions: Service Date/Time: Thursday, October 19, 2017 10:40 - CONCLUSION: Fibrin sheath stripping of the patient's port. Dipesh Auguste Jr., MD Renal Ultrasound 10/15/17 0000 Signed Impressions: Service Date/Time: Sunday, October 15, 2017 19:52 - CONCLUSION: Image quality is less than optimal secondary to patient body habitus. However, no hydronephrosis or concerning abnormality is identified. Cole Boston MD Chest X-Ray 10/08/17 0000 Signed Impressions: Service Date/Time: Sunday, October 08, 2017 05:16 - CONCLUSION: 1. Low lung volumes with mild patchy bilateral lower lung zone airspace disease, likely atelectasis. Foreign Blancas MD Chest X-Ray 10/08/17 0000 Signed Impressions: Service Date/Time: Sunday, October 08, 2017 05:16 - CONCLUSION: 1. Low lung volumes with mild patchy bilateral lower lung zone airspace disease, likely atelectasis. Foreign Blancas MD PHYSICAL EXAMINATION GENERAL: Awake and alert. HEENT: Extraocular movements grossly intact. No icterus. Oropharynx moist mucosa without lesions. NECK: Supple without adenopathy. LUNGS: Decreased breath sounds. HEART: Regular S1, S2 without murmurs, rubs or gallops. ABDOMEN: Bowel sounds present, soft, no tenderness. BACK: Lumbar subarachnoid drainage catheter in place. EXTREMITIES: No clubbing or cyanosis or edema. SKIN: No rash. NEUROLOGIC: No gross focal findings. PSYCHIATRIC: Calm and cooperative. IMPRESSION 1. Lumbar abscess. MRSA. Post drainage. Post laminectomy and repair of epidural tear. MRI showed fluid collection extending from the laminectomy defect into the subcutaneous tissues. 2. Postoperative CSF leak. Status post placement of subarachnoid CSF drain. CSF cultures showing Klebsiella. 3. Acute kidney disease secondary to vancomycin. Kidney function improving. Appears stable. RECOMMENDATIONS 1. Continue Daptomycin. 2. Change cefepime to ceftriaxone. 3. Monitor temperature and clinical status. Shukri Naqvi MD Oct 31, 2017 18:29
[2017-10-31] MEDS: cefTRIAXone INJ 1,000 MG in SODIUM CHLORIDE 0.9% INJ 100 ML IV SCH (18:41)
[2017-10-31 20:00] VITALS: BP 106/51; PULSE 69; RESP 18; TEMP 98.5; O2SAT 96
[2017-10-31] MEDS: ZOLPIDEM TARTRATE 5 MG TAB PO PRN (22:20)
[2017-11-01] VITALS: BP 112/56; PULSE 67; RESP 18; TEMP 98.4; O2SAT 96
[2017-11-01 04:00] VITALS: BP 123/57; PULSE 60; RESP 18; TEMP 98.2; O2SAT 95
[2017-11-01] MEDS: ACETAMINOPHEN/HYDROcodone 325 MG/7.5 MG TAB PO PRN ×4 (06:10→22:45)
[2017-11-01] MEDS: cefTRIAXone INJ 1,000 MG in SODIUM CHLORIDE 0.9% INJ 100 ML IV SCH ×2 (06:11→16:43)
[2017-11-01] MEDS: DOCUSATE SODIUM 100 MG CAP PO SCH ×2 (08:33→21:00)
[2017-11-01] MEDS: amLODIPine BESYLATE 5 MG TAB PO SCH (08:33)
[2017-11-01] MEDS: GABAPENTIN 100 MG CAP PO SCH ×3 (08:33→16:43)
[2017-11-01] MEDS: DAPTOmycin INJ 900 MG in SODIUM CHLORIDE 0.9% INJ 100 ML IV SCH (08:33)
[2017-11-01] MEDS: MULTIVITAMINS/MINERALS THERAPEUTIC TAB PO SCH ×2 (08:33→21:25)
[2017-11-01] MEDS: PANTOPRAZOLE SOD 20 MG DELAYED RELEASE TAB PO SCH (08:33)
[2017-11-01] MEDS: FERROUS SULFATE 325 MG (65 MG ELEMENTAL IRON) TAB PO SCH ×2 (08:33→21:25)
[2017-11-01] MEDS: MORPHINE SULFATE 4 MG/ML INJ IV PUSH PRN ×3 (08:34→18:27)
[2017-11-01 08:57] LABS: INTERNATIONAL NORMALIZED RATIO 1.1 RATIO; PROTHROMBIN TIME - PATIENT 10.8 SEC (9.8-11.6)
[2017-11-01 09:01] VITALS: BP 121/59; PULSE 63; RESP 17; TEMP 97.9; O2SAT 94
[2017-11-01] MEDS: DEXTROSE 5%-LACTATED RING INJ 1,000 ML IV SCH (09:05)
[2017-11-01] MEDS: FLUTICASONE PROPIONATE 50 MCG/ACT 16 GM NASAL SPRAY NASAL SCH (09:06)
[2017-11-01 12:05] VITALS: BP 131/61; PULSE 66; RESP 17; TEMP 98; O2SAT 96
[2017-11-01] MEDS ORDERED: ALTEPLASE RECOMBINANT 2 MG VIAL INTRACATH PRN (13:00)
--- NOTE | 2017-11-01 13:36 | PD.ORT.PN ---
Subjective Subjective Remarks POD # 27 Lumbar spine I&D MRSA c/o headache today.No c/o leg pain today Patient states developed drainage from lumbar spine last night and today Discussed with Dr Posada of IR.He will reevaluate today.Will possibly clamp LP drain early next week ,if no drainage when OOB will D/C LP drain at that time Objective Vitals Vital Signs Date Time Temp Pulse Resp B/P (MAP) Pulse Ox O2 Delivery O2 Flow Rate FiO2 11/01/17 12:58 16 11/01/17 12:05 98.0 66 17 131/61 (84) 96 11/01/17 12:03 16 11/01/17 09:01 97.9 63 17 121/59 (79) 94 11/01/17 04:00 98.2 60 18 123/57 (79) 95 11/01/17 00:00 98.4 67 18 112/56 (74) 96 10/31/17 20:00 98.5 69 18 106/51 (69) 96 10/31/17 20:00 Room Air 2.00 10/31/17 16:05 97.9 60 17 129/63 (85) 100 I/O 10/31/18 10/31/18 18 18 18 11/01/17 07:00 15:00 23:00 07:00 15:00 23:00 Intake Total 1550 ml 480 ml Output Total 1200 ml 1036 ml 981 ml Balance 350 ml -556 ml -981 ml Intake Oral 1550 ml 480 ml Output Urine Total 1200 ml 1000 ml 950 ml Drainage Total 36 ml 31 ml # Bowel Movements 0 Result Diagram: 10/31/17 0849 10/31/17 0849 Other Results Laboratory Tests Test 11/01/17 08:03 Prothromb Time International Ratio 1.1 RATIO Prothrombin Time 10.8 SEC (9.8-11.6) Objective Remarks Alfonso cath in place LP drain in place;CSF clear Lumbar dressing no drainage now; no erythema motor +5/5 to LE Neurologically no focal deficit. Assessment & Plan Assessment and Plan pod #27 s/p lumbar spine I&D with MRSA infection LP drain on 3 Patient states developed drainage from lumbar spine last night and today Discussed with Dr Posada of IR.He will reevaluate today.Will possibly clamp LP drain early next week ,if no drainage when OOB will D/C LP drain at that time Unable to replace infusaport by IR 10/23 Continue antibiotics per I.D. ; Kleb. pneumonia cultured in CSF,D/W Dr Reece of [place],he is going to treat medically; vanco was stopped due to acute renal failure and cubicin was started, nephrology following Bedrest with no higher than 30 degrees of elevation of bed Coumadin 10 mg today for DVT;no longer need daily Pt/INRs, check twice a week( Sunday,). Await Dietary consult, eval for assistance and management of malnutrition. Ensure plus 1 can TID. Albumin 2.9 Continue alfonso cath. Pt was urinating on herself in bed and there is concern about effect on lumbar spine wound. Medical team evaluating and treating anemia. Dylan Martin MD Nov 01, 2017 13:36
--- NOTE | 2017-11-01 15:43 | HHI.PR ---
Subjective Remarks I was informed today that Mrs. Malloy's lumbar dressing is saturated and leaking. It seems her drain may have become occluded. Neurosurgery recommends interventional radiology consult. I explained this to patient and she is understanding. Objective Vitals Vital Signs Date Time Temp Pulse Resp B/P (MAP) Pulse Ox O2 Delivery O2 Flow Rate FiO2 11/01/17 12:58 16 11/01/17 12:05 98.0 66 17 131/61 (84) 96 11/01/17 12:03 16 11/01/17 09:01 97.9 63 17 121/59 (79) 94 11/01/17 07:00 96 Room Air 2.00 11/01/17 04:00 98.2 60 18 123/57 (79) 95 11/01/17 00:00 98.4 67 18 112/56 (74) 96 10/31/17 20:00 98.5 69 18 106/51 (69) 96 10/31/17 20:00 Room Air 2.00 10/31/17 16:05 97.9 60 17 129/63 (85) 100 I/O 10/31/17 10/31/17 10/31/17 11/01/17 11/01/17 11/01/17 07:00 15:00 23:00 07:00 15:00 23:00 Intake Total 1550 ml 480 ml Output Total 1200 ml 1036 ml 981 ml Balance 350 ml -556 ml -981 ml Intake Oral 1550 ml 480 ml Output Urine Total 1200 ml 1000 ml 950 ml Drainage Total 36 ml 31 ml # Bowel Movements 0 Result Diagram: 10/31/17 0849 10/31/17 0849 Objective Remarks GENERAL: Morbidly obese, extra-wide bed SKIN: Warm and dry. HEAD: Normocephalic. EYES: No scleral icterus. No injection or drainage. NECK: Supple, trachea midline. No JVD or lymphadenopathy. CARDIOVASCULAR: Regular rate and rhythm without murmurs, gallops, or rubs. RESPIRATORY: Breath sounds equal bilaterally. No accessory muscle use. GASTROINTESTINAL: Abdomen soft, non-tender, nondistended. EXTREMITIES: No cyanosis, or edema. NEUROLOGICAL: Awake, alert, and oriented x 3. Non-focal. Procedures 1. Lumbar spine irrigation and debridement, and drainage of lumbar spine abscess. 2. L4-5 decompressive laminectomy, foraminotomy, reexploration and repair of dural leak. 10/29/17 Lumbar puncture and drain placement Date of Insertion: Oct 05, 2017 A/P Problem List: (1) Abscess in epidural space of lumbar spine ICD Code: G06.1 - Intraspinal abscess and granuloma (2) Gram-positive bacteremia ICD Code: R78.81 - Bacteremia Assessment and Plan Abscess in the epidural space of lumbar spine Fevers are resolved s/p irrigation and debridement and redo laminectomy L4-5 by orthopedic surgery, bed rest recommended Wound positive for MRSA. Currently on daptomycin and cefepime per ID port removal and replacement has been attempted by IR but was not successful, patient is not candidate for port placement in the chest secondary to fibrosis Pain management with Lortab and morphine sulfate consult regarding narcotics CSF leak status post LP, headaches resolving. Subarachnoid drain placed appears to have become occluded, interventional radiology requested to investigate. Acute renal failure, Resolved Appreciate nephrology consult Will follow BUN and creatinine Staph hominis and coag negative bacteremia. Resolved Currently on Daptomycin and cefepime Appreciate infectious disease following Normochromic normocytic anemia likely secondary to infection 1 unit of packed red blood cells transfused on 10/19/17 Continue ferrous sulfate for iron deficiency anemia Stool occult blood was negative Urinary incontinence Possibly due to lumbar issues Orthopedics recommends Perez Will reevaluate periodically Hypertension Continue home dose Norvasc DVT prophylaxis Coumadin Discharge planning [facility] if qualified Douglas Infante MD Nov 01, 2017 15:43
[2017-11-01] MEDS ORDERED: MIDAZOLAM HCL 2 MG/2 ML VIAL ONE ×2 (15:55)
[2017-11-01] MEDS ORDERED: fentaNYL CITRATE 250 MCG/5 ML AMP ONE (15:55)
[2017-11-01] MEDS ORDERED: WARFARIN SOD 5 MG TAB PO SCH (16:00)
[2017-11-01] MEDS ORDERED: WARFARIN SOD 5 MG TAB PO ONE (16:00)
[2017-11-01] MEDS ORDERED: IOHEXOL 300 MG/ML 50 ML BTL (for RAD DIAG) IT ONE (16:18)
[2017-11-01 16:20] VITALS: BP 127/59; PULSE 59; RESP 17; TEMP 98.6; O2SAT 98
--- NOTE | 2017-11-01 18:30 | HHI.NSPN ---
History Chief Complaint: No complaints Interval History 10/27: 62-year-old female with history of lumbar stenosis underwent L4 5 decompressive hemilaminectomy, bilateral foraminotomy, repair of small dural leak left L4 5 level with DuraGen and fibrin glue on 09/24/2017. She was discharged in stable condition with home health care. She presented to the emergency room 10/01/17 with some leaking from the incision site. No fevers reported. She was kept at flat bedrest. Due to persistent CSF leak, she underwent irrigation and debridement and drainage of abscess at the L4 5 level on 2017. She was seen by infectious disease, , started on vancomycin with initial cultures indicating MRSA. Vancomycin was initially discontinued and changed to daptomycin due to acute renal failure. She was placed back on bed rest postoperatively, started out of bed with therapy from 10/12/2017 until 10/16/2017 when she was noted to have persistent fluid leakage at the incision site. She has been back at bed rest since then. An MRI on 10/15/2017 revealed some fluid tracking up along the posterior spinal canal from L4 5 laminectomy site to the thoracolumbar junction. Approximately 3 x 12 cm fluid collection in the mid to upper lumbar midline extending towards the skin surface. The patient was briefly examined by the undersigned initially on 10/24/2017 at which time she was noted to have very minimal drainage from the upper aspect of the midline lumbar incision was otherwise dry and intact incision, intact lower extremity motor function, and MRI reviewed. Findings were discussed with orthopedic surgery as well as radiology with plans for follow-up MRI scan in order to determine any progression of the fluid collection within the spinal canal prior to consideration of lumbar subarachnoid drain. Follow-up MRI of the lumbar spine 10/25/2017 has been completed and reveals resolution of the probable intradural fluid collection, with moderate persistent soft tissue fluid collection in the mid to upper lumbar region. Ms. Malloy complains of intermittent moderate low back pain. She has mild numbness in the lower extremities which she states is relatively chronic. No significant radiating pain in the lower extremities. No complaining of bowel or bladder dysfunction. No complaining of fevers or chills. No significant headache. No blurred vision or diplopia. 10/28: She has not noted any drainage from the incision over the past day. Her dressing was changed per nursing staff just prior to my visit today and was relatively dry without significant drainage. 10/29: The patient went for a lumbar subarachnoid drain placement by Interventional Radiology this morning. When seen this evening the patient is awake and watching TV. She has no complaint of headache but does say her legs are throbbing. The dressing is intact to drain insertion site but it is rolled down at the top slightly. The back was nontender to palpation. She weakly moved the lower extremities. There is no change in her chronic numbness to the lower extremities. 10/30: The patient is asleep when seen this afternoon. She does say she has a slight headache. She denied any back or extremity pain or any change in her chronic extremity numbness. Her assessment is essentially unchanged from yesterday. The patient does state that she does not feel any weakness to the extremities and that she is moving them normally for her. Nursing reports that the drain was clamped until 0300 this morning. Then from 0300 until the morning shift the patient drain 80 mL. Nursing reported that the patient had a severe headache and she raised the drain and then clamped it. Since then the patient has put out 5 mL at 1400. Nursing reports that the patient is frequently raising and lowering her bed without the knowledge of the Nursing staff affecting how the drain is working. 10/31: When seen this afternoon the patient is awake and alert talking with the Steel Sash Erector. She has no complaints when seen. There is no change in her neuro exam. The dressing to the lumbar drain had been rolled up from the insertion site and the surgical incision dressing was off. The bedding under her was wet with yellow drainage. 11/01: Pt awake and alert. States returned from radiology special procedures where the lumbar spinal drain was removed. Review of Systems General: Negative for: fever, chills, insomnia Respiratory: Negative for: shortness of breath, cough, sputum Cardiovascular: Negative for: chest pain Gastrointestinal: Negative for: nausea, vomitting, diarrhea, constipation Exam Results Vital Signs Date Time Temp Pulse Resp B/P (MAP) Pulse Ox O2 Delivery O2 Flow Rate FiO2 11/01/17 17:29 16 11/01/17 16:20 98.6 59 127/59 (81) 98 11/01/17 07:00 Room Air 2.00 Intake and Output 11/01/17 11/01/17 11/02/17 08:00 16:00 00:00 Intake Total 480 ml Output Total 981 ml 1250 ml Balance -981 ml -770 ml Physical Examination GENERAL: Patient awake & alert in bed. Her affect remains flat but she readily interacts. She is not in any apparent distress. HEENT: Normocephalic, atraumatic. MUSCULOSKELETAL: Moves all extremities spontaneously & purposefully. Generalized weakness in LEs. NEUROLOGICAL: AAOx3. Speech clear & appropriate. Follows simple command w/o difficulty. Sensation decreased to distal BLE chronically w/o change. Moves all extremities weakly but is normal for the patient. Lab, Micro, Other Results Last Impressions Lumbar Puncture Fluoroscopy 10/29/17 0000 Signed Impressions: Service Date/Time: Sunday, October 29, 2017 09:12 - CONCLUSION: Uncomplicated lumbar drain placement as above. Foreign Blancas MD Lumbar Spine MRI 10/25/17 0000 Signed Impressions: Service Date/Time: October 13:20 - CONCLUSION: 1. Persistent fluid collection extending from the laminectomy defect at L4-5 into the subcutaneous tissues in the midline of the back measures 4.8 cm AP x 6.8 cm TRV x 9.7 cm SAG. 2. Moderate spinal stenosis at L4-5 and mild spinal stenosis at L3-4 and L5-S1. 3. Moderate bilateral foraminal narrowing at L4-5 and L5-S1 and moderate right neural foraminal narrowing at L3-4. 4. Resolution of the previously noted CSF collection in the posterior spinal canal extending from T12 through L2. 5. Grade I anterolisthesis of L4 in relation to L5. 6. Degenerative disc disease L3-4, L4-5 and L5-S1. 7. Facet joint hypertrophy bilaterally from L3 through L5. Gio Verduzco MD Venous Access Device Injection 10/23/17 0000 Signed Impressions: Service Date/Time: Monday, October 23, 2017 11:57 - CONCLUSION: 1. The catheter tip port is at the level of the right atria. 2. The patient has complete central venous occlusion. 3. Please see above. Mati Posada MD Venogram 10/23/17 0000 Signed Impressions: Service Date/Time: Monday, October 23, 2017 11:57 - CONCLUSION: 1. The patient has complete fibrotic central venous occlusion and is not a candidate for Ahbcoo-n-Baet placement in the upper chest. 2. The existing port which is in an appropriate location and can be used for infusion of medications or other indicated products. 3. The existing port was vigorously flushed with 20 cc of saline following this using a slow, deliberate technique blood could be withdrawn if a 3 cc syringe was used. Mati Posada MD Foreign Body Removal 10/19/17 0000 Signed Impressions: Service Date/Time: Thursday, October 19, 2017 10:40 - CONCLUSION: Fibrin sheath stripping of the patient's port. Dipesh Auguste Jr., MD Renal Ultrasound 10/15/17 0000 Signed Impressions: Service Date/Time: Sunday, October 15, 2017 19:52 - CONCLUSION: Image quality is less than optimal secondary to patient body habitus. However, no hydronephrosis or concerning abnormality is identified. Cole Boston MD Chest X-Ray 10/08/17 0000 Signed Impressions: Service Date/Time: Sunday, October 08, 2017 05:16 - CONCLUSION: 1. Low lung volumes with mild patchy bilateral lower lung zone airspace disease, likely atelectasis. Foreign Blancas MD Laboratory Tests Test 11/01/17 08:03 Prothrombin Time 10.8 SEC Prothromb Time International Ratio 1.1 RATIO 11/01/17 11/01/17 11/02/17 15:00 23:00 07:00 Intake Total 480 ml Output Total 981 ml 1250 ml Balance -981 ml -770 ml Intake Oral 480 ml Output Urine Total 950 ml 1250 ml Drainage Total 31 ml Medical Decision Making Impression and Plan A: Postoperative CSF leak. There is actually very minimal drainage from the incision over the past few days. Previous fluid collection within the subdural space resolved on most recent MRI. No evidence of active infection. () s/p: Lumbar subarachnoid drain placement by Interventional Radiology Plan: Primary management per Hospitalist. Keep the HOB as low as the patient will tolerate. Interventional Radiology removed lumbar spinal drain this afternoon. Pt will need to stay on bedrest. Jonh Garcia Nov 01, 2017 6:30 pm
[2017-11-01 21:17] VITALS: BP 136/70; PULSE 73; RESP 18; TEMP 99.1
[2017-11-02] VITALS (7 sets, daily range): BP systolic 103–129; BP diastolic 52–72; PULSE 58–84; RESP 16–19; TEMP 97.6–98.8; O2SAT 95–100
[2017-11-02] MEDS: MORPHINE SULFATE 4 MG/ML INJ IV PUSH PRN ×5 (01:59→20:55)
[2017-11-02] MEDS: cefTRIAXone INJ 1,000 MG in SODIUM CHLORIDE 0.9% INJ 100 ML IV SCH ×2 (05:47→16:27)
[2017-11-02] MEDS: DEXTROSE 5%-LACTATED RING INJ 1,000 ML IV SCH (05:53)
[2017-11-02] MEDS: ACETAMINOPHEN/HYDROcodone 325 MG/7.5 MG TAB PO PRN ×4 (05:55→22:07)
--- NOTE | 2017-11-02 07:17 | PD.ORT.PN ---
Subjective Subjective Remarks POD # 28 Lumbar spine I&D MRSA c/o continued headache today.No c/o leg pain today Patient states developed drainage from lumbar spine since 10/31 lumbar drain was discontinued 3 by I.R. Objective Vitals Vital Signs Date Time Temp Pulse Resp B/P (MAP) Pulse Ox O2 Delivery O2 Flow Rate FiO2 11/02/17 05:16 97.7 58 18 111/57 (75) 98 11/02/17 01:10 98.8 61 18 129/61 (83) 100 11/01/17 21:17 99.1 73 18 136/70 (92) 11/01/17 19:15 Nasal Cannula 2.00 11/01/17 19:12 16 11/01/17 17:29 16 11/01/17 16:20 98.6 59 17 127/59 (81) 98 11/01/17 12:05 98.0 66 17 131/61 (84) 96 11/01/17 09:01 97.9 63 17 121/59 (79) 94 I/O 11/01/17 11/01/17 11/01/17 11/02/17 11/02/17 11/02/17 07:00 15:00 23:00 07:00 15:00 23:00 Intake Total 480 ml Output Total 981 ml 1250 ml 1000 ml Balance -981 ml -770 ml -1000 ml Intake Oral 480 ml Output Urine Total 950 ml 1250 ml 1000 ml Drainage Total 31 ml Result Diagram: 10/31/17 0849 10/31/17 0849 Other Results Laboratory Tests Test 11/01/17 08:03 Prothromb Time International Ratio 1.1 RATIO Prothrombin Time 10.8 SEC (9.8-11.6) Objective Remarks Alfonso cath in place Lumbar dressing, pt has continued drainage, no erythema motor +5/5 to LE Neurologically no focal deficit. Assessment & Plan Assessment and Plan pod #28 s/p lumbar spine I&D with MRSA infection LP drain on 3, removed on 3 Patient states developed drainage from lumbar spine 3 Patient is to maintain bedrest this weekend, if patient is having continued drainage on Sunday; Dr. Wadsworth will re-evaluate Sunday about surgical management Unable to replace infusaport by IR Continue antibiotics per I.D. ; Kleb. pneumonia cultured in CSF,D/W Dr Reece of [place],he is going to treat medically; vanco was stopped due to acute renal failure and cubicin was started, nephrology following Bedrest with no higher than 30 degrees of elevation of bed Coumadin 10 mg today for DVT and then 5 mg daily. Pt/INR Sunday morning Patient unable to tolerate Ensure, Await Dietary consult, eval for assistance and management of malnutrition. Albumin 2.9 Continue alfonso cath. Pt was urinating on herself in bed and there is concern about effect on lumbar spine wound. Medical team evaluating and treating anemia. Dylan Martin MD Nov 02, 2017 07:17
[2017-11-02] MEDS: FERROUS SULFATE 325 MG (65 MG ELEMENTAL IRON) TAB PO SCH ×2 (07:40→22:07)
[2017-11-02] MEDS: PANTOPRAZOLE SOD 20 MG DELAYED RELEASE TAB PO SCH (07:40)
[2017-11-02] MEDS: amLODIPine BESYLATE 5 MG TAB PO SCH (07:40)
[2017-11-02] MEDS: DOCUSATE SODIUM 100 MG CAP PO SCH ×2 (07:40→22:07)
[2017-11-02] MEDS: MULTIVITAMINS/MINERALS THERAPEUTIC TAB PO SCH ×2 (07:40→22:07)
[2017-11-02] MEDS: GABAPENTIN 100 MG CAP PO SCH ×3 (07:40→16:27)
[2017-11-02] MEDS: SODIUM CHLORIDE 0.9% FLUSH 10 ML FLUSH IV FLUSH PRN ×2 (07:41→22:07)
[2017-11-02] MEDS: DAPTOmycin INJ 900 MG in SODIUM CHLORIDE 0.9% INJ 100 ML IV SCH (07:41)
[2017-11-02] MEDS: FLUTICASONE PROPIONATE 50 MCG/ACT 16 GM NASAL SPRAY NASAL SCH (07:42)
[2017-11-02] MEDS: MAGNESIUM HYDROXIDE SUSP 30 ML CUP PO PRN (07:52)
--- NOTE | 2017-11-02 07:56 | RADRPT ---
EXAM DATE/TIME: 11/01/2017 15:52 [facility] COMPARISON: No previous studies available for comparison. INDICATIONS : Patient presents with CSF leak in need of lumbar drain evaluation. MEDICAL HISTORY : HTN, Ulcerative pancreatitis, Osteoarthritis, CVA, GERD, MRSA SURGIAL HISTORY : Port placement, Gastric bypass, Lumbar laminectomy, Right breast lumpectomy, Cholecystectomy ENCOUNTER: Subsequent ACUITY: 1 month PAIN SCORE: 6/10 LOCATION: Bilateral legs FLUORO TIME: 0.6 minutes IMAGE SERIES: 1 CONTRAST: 5 cc Omnipaque (iohexol) 300 Tip of lumbar drain was placed at PROCEDURE : 1. Fluoroscopically guided lumbar drain evaluation and removal. The risks, benefits and alternatives to the procedure were explained and verbal and written consent w as obtained. The site was prepped in sterile fashion. Full sterile technique was used, including ca p, mask, sterile gloves and gown and a large sterile sheet. Hand hygiene and 2% chlorhexidine and/or betadine/alcohol prep was utilized per protocol for cutaneous antisepsis. The skin and subcutaneous tissues were infiltrated with local anesthetic solution. Fluoroscopic evaluation of the catheter with injection of contrast demonstrated a catheter has been r etracted to the L4 level. Therefore, the catheter was removed. CONCLUSION: 1. Lumbar drain catheter has been displaced to the L4 level and therefore was removed. The Findings were personally discussed with Drs. Wadsworth and Mario. Foreign Blancas MD on November 02, 2017 at 7:51 Board Certified Radiologist. This report was verified electronically.
[2017-11-02 08:11] LABS: AUTOMATED NEUTROPHIL # 4.5 TH/MM3 (1.8-7.7); BASOPHIL % 0.5 % (0.0-2.0); EOSINOPHIL # 0.2 TH/MM3 (0-0.4); EOSINOPHIL % 2.8 % (0.0-4.0); HEMATOCRIT 29.3 % (35.0-46.0); HEMOGLOBIN 9.4 GM/DL (11.6-15.3); LYMPH % 25.3 % (9.0-44.0); LYMPHOCYTE # 1.9 TH/MM3 (1.0-4.8); MEAN CORPUSCULAR HEMOGLOBIN 28.8 PG (27.0-34.0); MEAN PLATELET VOLUME 8.2 FL (7.0-11.0); MONO % 12.7 % (0.0-8.0); NEUT % 58.7 % (16.0-70.0); PLATELET COUNT 254 TH/MM3 (150-450); RED BLOOD COUNT 3.26 MIL/MM3 (4.00-5.30); RED CELL DISTRIBUTION WIDTH 16.8 % (11.6-17.2); WHITE BLOOD COUNT 7.6 TH/MM3 (4.0-11.0)
[2017-11-02] MEDS ORDERED: WARFARIN SOD 10 MG TAB PO ONE (16:00)
[2017-11-02] MEDS: BISACODYL 10 MG SUPP RECTAL PRN (17:15)
--- NOTE | 2017-11-02 17:30 | HHI.IDPN ---
Note Infectious Disease Note Patient notes severe headache. Denies pain in the back. Increase clear fluid drainage from the back incision. Lumbar subarachnoid catheter was removed yesterday. Denies nausea vomiting. Afebrile. 61-year-old black female who recently underwent lumbar spine surgery. The patient was treated for lumbar spine stenosis. She underwent L4-L5 bilateral decompressive hemilaminectomy along with decompression of nerve root and left side L4-L5 repair of dural leak. The patient was discharged from the hospital on September 26. She was taken to surgery and underwent incision and drainage of an lumbar abscess. PAST MEDICAL HISTORY 1. Dyslipidemia, 2. Status post laminectomy for spinal stenosis 3. Appendectomy, 4. Gastric bypass 5. Knee replacement 6. Gastroesophageal reflux disease, 7. Hysterectomy. ALLERGIES NO KNOWN DRUG ALLERGIES. MEDICATION: Antibiotics. Daptomycin. Ceftriaxone. Current Medications Medications (Trade) Dose Ordered Sig/Kylah Route PRN Reason Start Time Stop Time Status Last Admin Dose Admin Dextrose/Lactated Ringer's 1,000 ml @ 50 mls/hr Q20H IV 10/05/17 12:00 10/28/17 20:00 Sodium Chloride (NS Flush) 5 ml UNSCH PRN IV FLUSH SEE PROTOCOL TABLE 10/05/17 14:00 11/02/17 07:41 Heparin Sodium (Porcine) (Heparin Central Flush) 250 units UNSCH PRN IV FLUSH SEE PROTOCOL TABLE 10/05/17 14:00 10/23/17 13:32 Heparin Sodium (Porcine) (Heparin Central Flush) 500 units UNSCH IV FLUSH 10/05/17 14:00 10/20/17 06:24 Morphine Sulfate (Morphine Inj) 5 mg Q3H PRN IV PUSH BREAKTHROUGH PAIN 10/05/17 17:00 11/02/17 14:39 Acetaminophen/ Hydrocodone Bitart (Campbell 7.5-325 Mg) 1 tab Q4H PRN PO PAIN SCALE 1 TO 5 10/05/17 17:00 10/21/17 17:45 Multivitamins/ Minerals Therapeutic (Theragran M Tab) 1 tab BID PO 10/06/17 09:00 12/05/17 08:59 11/02/17 07:40 Ondansetron HCl (Zofran Inj) 4 mg Q6H PRN IV PUSH NAUSEA OR VOMITING 10/05/17 17:00 Al Hydrox/Mg Hydrox/Simethicone (Mag-Al Plus Susp Liq) 30 ml Q6H PRN PO INDIGESTION 10/05/17 17:00 Zolpidem Tartrate (Ambien) 5 mg HS PRN PO SLEEP 10/05/17 21:00 10/31/17 22:20 Naloxone HCl (Narcan Inj) 0.4 mg UNSCH PRN IV PUSH RESPIRATORY RATE LESS THAN 10 10/05/17 17:00 Pravastatin Sodium (Pravachol) 40 mg DAILY PO 10/06/17 09:00 Future Hold 10/15/17 08:34 Pantoprazole Sodium (Protonix) 20 mg DAILY PO 10/06/17 09:00 11/02/17 07:40 Acetaminophen/ Hydrocodone Bitart (Campbell 7.5-325 Mg) 2 tab Q4HR PRN PO PAIN SCALE 6 TO 10 10/06/17 09:00 11/02/17 17:14 Docusate Sodium (Colace) 100 mg BID PO 10/06/17 09:30 11/02/17 07:40 Acetaminophen (Tylenol) 650 mg Q4H PRN PO fever > 101 10/08/17 02:45 10/13/17 11:31 Lisinopril (Prinivil) 5 mg DAILY PO 10/10/17 09:00 Future Hold 10/15/17 08:34 Ferrous Sulfate (Ferrous Sulfate) 325 mg BID PO 10/10/17 21:00 11/02/17 07:40 Magnesium Hydroxide (Milk Of Magnesia Liq) 30 ml Q6H PRN PO CONSTIPATION 10/14/17 09:45 11/02/17 07:52 Gabapentin (Neurontin) 200 mg TID PO 10/17/17 13:00 11/02/17 16:27 Bisacodyl (Dulcolax Supp) 10 mg DAILY PRN RECTAL CONSTIPATION 10/21/17 12:45 11/02/17 17:15 Amlodipine Besylate (Norvasc) 5 mg DAILY PO 10/22/17 11:00 11/02/17 07:40 Clonidine (Catapres) 0.1 mg Q6H PRN PO bp>160/90 10/22/17 10:00 Daptomycin 900 mg/ Sodium Chloride 100 ml @ 200 mls/hr Q24H IV 10/27/17 09:00 11/02/17 07:41 Fluticasone Propionate (Flonase David Spr) 2 spray DAILY NASAL 10/27/17 14:30 11/02/17 07:42 Ceftriaxone Sodium 1000 mg/ Sodium Chloride 100 ml @ 200 mls/hr Q12H IV 10/31/17 18:00 11/02/17 16:27 Alteplase, Recombinant (Cathflo Activase Inj) 2 mg Q2H PRN INTRACATH obstruction 11/01/17 13:00 Warfarin Sodium (Coumadin) 5 mg DAILY@1600 PO 11/03/17 16:00 Objective Vital Signs Date Time Temp Pulse Resp B/P (MAP) Pulse Ox O2 Delivery O2 Flow Rate FiO2 11/02/17 14:42 16 11/02/17 14:41 16 11/02/17 12:00 97.6 84 16 124/72 (89) 96 11/02/17 08:00 98.5 62 18 123/58 (79) 98 11/02/17 07:00 98 Room Air 2.00 11/02/17 05:16 97.7 58 18 111/57 (75) 98 11/02/17 01:10 98.8 61 18 129/61 (83) 100 11/01/17 21:17 99.1 73 18 136/70 (92) 11/01/17 19:15 Nasal Cannula 2.00 Laboratory Tests Test 11/02/17 07:34 White Blood Count 7.6 TH/MM3 Red Blood Count 3.26 MIL/MM3 Hemoglobin 9.4 GM/DL Hematocrit 29.3 % Mean Corpuscular Volume 90.0 FL Mean Corpuscular Hemoglobin 28.8 PG Mean Corpuscular Hemoglobin Concent 32.0 % Red Cell Distribution Width 16.8 % Platelet Count 254 TH/MM3 Mean Platelet Volume 8.2 FL Neutrophils (%) (Auto) 58.7 % Lymphocytes (%) (Auto) 25.3 % Monocytes (%) (Auto) 12.7 % Eosinophils (%) (Auto) 2.8 % Basophils (%) (Auto) 0.5 % Neutrophils # (Auto) 4.5 TH/MM3 Lymphocytes # (Auto) 1.9 TH/MM3 Monocytes # (Auto) 1.0 TH/MM3 Eosinophils # (Auto) 0.2 TH/MM3 Basophils # (Auto) 0.0 TH/MM3 CBC Comment DIFF FINAL Differential Comment Microbiology Date/Time Source Procedure Growth Status 10/29/17 10:28 Cerebral Spinal Fluid Lumbar Puncture Fungal Smear - Final NO FUNGAL ELEMENTS SEEN. Resulted 10/29/17 10:28 Cerebral Spinal Fluid Lumbar Puncture Fungal Culture Pending Resulted 10/29/17 10:28 Cerebral Spinal Fluid Lumbar Puncture Gram Stain - Final Complete 10/29/17 10:28 CSF Culture - Final Klebsiella Pneumoniae Complete IMAGING: Lumbar Puncture Fluoroscopy 10/29/17 0000 Signed Impressions: Service Date/Time: Sunday, October 29, 2017 09:12 - CONCLUSION: Uncomplicated lumbar drain placement as above. Foreign Blancas MD Lumbar Spine MRI 10/25/17 0000 Signed Impressions: Service Date/Time: October 13:20 - CONCLUSION: 1. Persistent fluid collection extending from the laminectomy defect at L4-5 into the subcutaneous tissues in the midline of the back measures 4.8 cm AP x 6.8 cm TRV x 9.7 cm SAG. 2. Moderate spinal stenosis at L4-5 and mild spinal stenosis at L3-4 and L5-S1. 3. Moderate bilateral foraminal narrowing at L4-5 and L5-S1 and moderate right neural foraminal narrowing at L3-4. 4. Resolution of the previously noted CSF collection in the posterior spinal canal extending from T12 through L2. 5. Grade I anterolisthesis of L4 in relation to L5. 6. Degenerative disc disease L3-4, L4-5 and L5-S1. 7. Facet joint hypertrophy bilaterally from L3 through L5. Gio Verduzco MD Venous Access Device Injection 10/23/17 0000 Signed Impressions: Service Date/Time: Monday, October 23, 2017 11:57 - CONCLUSION: 1. The catheter tip port is at the level of the right atria. 2. The patient has complete central venous occlusion. 3. Please see above. Mati Posada MD Venogram 10/23/17 0000 Signed Impressions: Service Date/Time: Monday, October 23, 2017 11:57 - CONCLUSION: 1. The patient has complete fibrotic central venous occlusion and is not a candidate for Hnaqxw-f-Ldnv placement in the upper chest. 2. The existing port which is in an appropriate location and can be used for infusion of medications or other indicated products. 3. The existing port was vigorously flushed with 20 cc of saline following this using a slow, deliberate technique blood could be withdrawn if a 3 cc syringe was used. Mati Posada MD Foreign Body Removal 10/19/17 0000 Signed Impressions: Service Date/Time: Thursday, October 19, 2017 10:40 - CONCLUSION: Fibrin sheath stripping of the patient's port. Dipesh Auguste Jr., MD Renal Ultrasound 10/15/17 0000 Signed Impressions: Service Date/Time: Sunday, October 15, 2017 19:52 - CONCLUSION: Image quality is less than optimal secondary to patient body habitus. However, no hydronephrosis or concerning abnormality is identified. Cole Boston MD Chest X-Ray 10/08/17 0000 Signed Impressions: Service Date/Time: Sunday, October 08, 2017 05:16 - CONCLUSION: 1. Low lung volumes with mild patchy bilateral lower lung zone airspace disease, likely atelectasis. Foreign Blancas MD Chest X-Ray 10/08/17 0000 Signed Impressions: Service Date/Time: Sunday, October 08, 2017 05:16 - CONCLUSION: 1. Low lung volumes with mild patchy bilateral lower lung zone airspace disease, likely atelectasis. Foreign Blancas MD PHYSICAL EXAMINATION GENERAL: Awake and alert. HEENT: Extraocular movements grossly intact. No icterus. Oropharynx moist mucosa without lesions. NECK: Supple without adenopathy. LUNGS: Clear breath sounds HEART: Regular S1, S2 without murmurs, rubs or gallops. ABDOMEN: Bowel sounds present, soft, no tenderness. BACK: Lumbar subarachnoid drainage has been removed. EXTREMITIES: No clubbing or cyanosis or edema. SKIN: No rash. NEUROLOGIC: No gross focal findings. PSYCHIATRIC: Calm and cooperative. IMPRESSION 1. Lumbar abscess. MRSA. Post drainage. Post laminectomy and repair of epidural tear. MRI showed fluid collection extending from the laminectomy defect into the subcutaneous tissues. 2. Postoperative CSF leak. Status post placement of subarachnoid CSF drain. CSF cultures grew klebsiella. Patient continues to have drainage from the back incision. 3. Acute kidney disease secondary to vancomycin. Kidney function improving. RECOMMENDATIONS 1. Continue Daptomycin. 2. Continue ceftriaxone. 3. Monitor temperature. 4. Monitor white blood cell count. 5. Monitor clinical status. Shukri Naqvi MD Nov 02, 2017 17:30
[2017-11-02] MEDS ORDERED: GLYCERIN ADULT 2 GM SUPP RECTAL PRN (18:30)
[2017-11-02] MEDS ORDERED: SODIUM CHLORID 0.9% 500 ML INJ 500 ML IV ONE (18:30)
--- NOTE | 2017-11-02 18:30 | HHI.PR ---
Subjective Remarks Lumbar drain failed yesterday and was removed by interventional radiology. Patient complains of worsening headaches. She also complains of constipation and uncontrolled pain. Objective Vitals Vital Signs Date Time Temp Pulse Resp B/P (MAP) Pulse Ox O2 Delivery O2 Flow Rate FiO2 11/02/17 18:18 16 11/02/17 18:12 18 11/02/17 16:00 98.5 75 19 128/71 (90) 98 11/02/17 12:00 97.6 84 16 124/72 (89) 96 11/02/17 08:00 98.5 62 18 123/58 (79) 98 11/02/17 07:00 98 Room Air 2.00 11/02/17 05:16 97.7 58 18 111/57 (75) 98 11/02/17 01:10 98.8 61 18 129/61 (83) 100 11/01/17 21:17 99.1 73 18 136/70 (92) 11/01/17 19:15 Nasal Cannula 2.00 I/O 11/01/17 11/01/17 11/01/17 11/02/17 11/02/17 11/02/17 07:00 15:00 23:00 07:00 15:00 23:00 Intake Total 480 ml Output Total 981 ml 1250 ml 1000 ml Balance -981 ml -770 ml -1000 ml Intake Oral 480 ml Output Urine Total 950 ml 1250 ml 1000 ml Drainage Total 31 ml Result Diagram: 11/02/17 0734 10/31/17 0849 Objective Remarks GENERAL: Morbidly obese, extra-wide bed SKIN: Warm and dry. HEAD: Normocephalic. EYES: No scleral icterus. No injection or drainage. NECK: Supple, trachea midline. No JVD or lymphadenopathy. CARDIOVASCULAR: Regular rate and rhythm without murmurs, gallops, or rubs. RESPIRATORY: Breath sounds equal bilaterally. No accessory muscle use. GASTROINTESTINAL: Abdomen soft, non-tender, nondistended. EXTREMITIES: No cyanosis, or edema. NEUROLOGICAL: Awake, alert, and oriented x 3. Non-focal. Procedures 1. Lumbar spine irrigation and debridement, and drainage of lumbar spine abscess. 2. L4-5 decompressive laminectomy, foraminotomy, reexploration and repair of dural leak. 10/29/17 Lumbar puncture and drain placement Date of Insertion: Oct 05, 2017 A/P Problem List: (1) Abscess in epidural space of lumbar spine ICD Code: G06.1 - Intraspinal abscess and granuloma (2) Gram-positive bacteremia ICD Code: R78.81 - Bacteremia Assessment and Plan Abscess in the epidural space of lumbar spine s/p irrigation and debridement and redo laminectomy L4-5 by orthopedic surgery, bed rest recommended Wound positive for MRSA. Currently on daptomycin and cefepime per ID port removal and replacement has been attempted by IR but was not successful, patient is not candidate for port placement in the chest secondary to fibrosis Pain management with Lortab and morphine sulfate consult regarding narcotics CSF leak status post LP Subarachnoid drain removed by interventional radiology due to failure. Headaches have returned. Acute renal failure, Resolved Appreciate nephrology consult Will follow BUN and creatinine Staph hominis and coag negative bacteremia. Resolved Currently on Daptomycin and cefepime Appreciate infectious disease following Normochromic normocytic anemia likely secondary to infection 1 unit of packed red blood cells transfused on 10/19/17 Continue ferrous sulfate for iron deficiency anemia Stool occult blood was negative Constipation Not responding to p.o. medication Glycerin suppository ordered Urinary incontinence Possibly due to lumbar issues Orthopedics recommends Perez Will reevaluate periodically Hypertension Continue home dose Norvasc DVT prophylaxis Coumadin Discharge planning [place] [facility] if qualified Douglas Infante MD Nov 02, 2017 18:30
[2017-11-02] MEDS: ZOLPIDEM TARTRATE 5 MG TAB PO PRN (22:07)
[2017-11-03] MEDS: MORPHINE SULFATE 4 MG/ML INJ IV PUSH PRN ×7 (00:12→23:12)
[2017-11-03] MEDS: ACETAMINOPHEN/HYDROcodone 325 MG/7.5 MG TAB PO PRN ×2 (02:35→06:26)
[2017-11-03] MEDS: DEXTROSE 5%-LACTATED RING INJ 1,000 ML IV SCH ×2 (02:39→22:39)
[2017-11-03 04:23] VITALS: BP 96/47; PULSE 61; RESP 16; TEMP 97.6; O2SAT 94
[2017-11-03] MEDS: cefTRIAXone INJ 1,000 MG in SODIUM CHLORIDE 0.9% INJ 100 ML IV SCH ×2 (05:22→18:30)
[2017-11-03 08:00] VITALS: BP 106/55; PULSE 61; RESP 18; TEMP 98.7; O2SAT 95
--- NOTE | 2017-11-03 08:04 | PD.ORT.PN ---
Subjective Subjective Remarks Resting comfortably with no new complaints. She states that she is feeling better than yesterday Objective Vitals Vital Signs Date Time Temp Pulse Resp B/P (MAP) Pulse Ox O2 Delivery O2 Flow Rate FiO2 11/03/17 04:23 97.6 61 16 96/47 (63) 94 11/02/17 23:41 97.8 64 16 103/52 (69) 95 11/02/17 20:00 97.7 62 18 107/53 (71) 96 11/02/17 20:00 97 Room Air 11/02/17 18:18 16 11/02/17 18:12 18 11/02/17 16:00 98.5 75 19 128/71 (90) 98 11/02/17 12:00 97.6 84 16 124/72 (89) 96 I/O 11/02/17 11/02/17 11/02/17 11/03/17 11/03/17 11/03/17 07:00 15:00 23:00 07:00 15:00 23:00 Intake Total 500 ml Output Total 1000 ml 1500 ml Balance -1000 ml -1000 ml IV Total 500 ml Output Urine Total 1000 ml 1500 ml # Bowel Movements 1 Result Diagram: 11/02/17 0734 10/31/17 0849 Objective Remarks Alfonso cath in place Lumbar dressing, pt has continued drainage, no erythema motor +5/5 to LE Neurologically no focal deficit. Assessment & Plan Assessment and Plan pod #29 s/p lumbar spine I&D with MRSA infection LP drain on 10/29, removed on 11/01 Patient states developed drainage from lumbar spine 10/31 Patient is to maintain bedrest this , if patient is having continued drainage on Sunday; Dr. Wadsworth will re-evaluate Sunday about surgical management Unable to replace infusaport by IR Continue antibiotics per I.D. ; Kleb. pneumonia cultured in CSF,D/[place] Re[place],he is going to treat medically; vanco was stopped due to acute renal failure and cubicin was started, nephrology following Bedrest with no higher than 30 degrees of elevation of bed Coumadin 10 mg today for DVT and then 5 mg daily. Pt/INR Sunday morning Patient unable to tolerate Ensure, Await Dietary consult, eval for assistance and management of malnutrition. Albumin 2.9 Continue alfonso cath. Pt was urinating on herself in bed and there is concern about effect on lumbar spine wound. Medical team evaluating and treating anemia. Ayan Kulkarni Jr. Nov 03, 2017 08:04
[2017-11-03] MEDS: amLODIPine BESYLATE 5 MG TAB PO SCH (09:00)
[2017-11-03] MEDS: PANTOPRAZOLE SOD 20 MG DELAYED RELEASE TAB PO SCH (09:40)
[2017-11-03] MEDS: MULTIVITAMINS/MINERALS THERAPEUTIC TAB PO SCH ×2 (09:41→19:47)
[2017-11-03] MEDS: FERROUS SULFATE 325 MG (65 MG ELEMENTAL IRON) TAB PO SCH ×2 (09:41→19:47)
[2017-11-03] MEDS: GABAPENTIN 100 MG CAP PO SCH ×3 (09:41→18:30)
[2017-11-03] MEDS: DOCUSATE SODIUM 100 MG CAP PO SCH ×2 (09:41→19:47)
[2017-11-03] MEDS: DAPTOmycin INJ 900 MG in SODIUM CHLORIDE 0.9% INJ 100 ML IV SCH (09:41)
[2017-11-03] MEDS: FLUTICASONE PROPIONATE 50 MCG/ACT 16 GM NASAL SPRAY NASAL SCH (09:42)
[2017-11-03 12:00] VITALS: BP 127/61; PULSE 58; RESP 16; TEMP 97.8; O2SAT 95
--- NOTE | 2017-11-03 14:50 | HHI.PR ---
Subjective Remarks Nurse reports that there is only minimal drainage from her lower back today, this combined with patient's report that her headaches are less is overall a good sign. Objective Vitals Vital Signs Date Time Temp Pulse Resp B/P (MAP) Pulse Ox O2 Delivery O2 Flow Rate FiO2 11/03/17 12:00 97.8 58 16 127/61 (83) 95 11/03/17 08:00 98.7 61 18 106/55 (72) 95 11/03/17 04:23 97.6 61 16 96/47 (63) 94 11/02/17 23:41 97.8 64 16 103/52 (69) 95 11/02/17 20:00 97.7 62 18 107/53 (71) 96 11/02/17 20:00 97 Room Air 11/02/17 18:18 16 11/02/17 18:12 18 11/02/17 16:00 98.5 75 19 128/71 (90) 98 I/O 11/02/17 11/02/17 11/02/17 11/03/17 11/03/17 11/03/17 06:59 14:59 22:59 06:59 14:59 22:59 Intake Total 500 ml Output Total 1000 ml 1500 ml Balance -1000 ml -1000 ml IV Total 500 ml Output Urine Total 1000 ml 1500 ml # Bowel Movements 1 Result Diagram: 11/02/17 0734 10/31/17 0849 Objective Remarks GENERAL: Morbidly obese, extra-wide bed SKIN: Warm and dry. HEAD: Normocephalic. EYES: No scleral icterus. No injection or drainage. NECK: Supple, trachea midline. No JVD or lymphadenopathy. CARDIOVASCULAR: Regular rate and rhythm without murmurs, gallops, or rubs. RESPIRATORY: Breath sounds equal bilaterally. No accessory muscle use. GASTROINTESTINAL: Abdomen soft, non-tender, nondistended. EXTREMITIES: No cyanosis, or edema. NEUROLOGICAL: Awake, alert, and oriented x 3. Non-focal. Procedures 1. Lumbar spine irrigation and debridement, and drainage of lumbar spine abscess. 2. L4-5 decompressive laminectomy, foraminotomy, reexploration and repair of dural leak. 10/29/17 Lumbar puncture and drain placement Date of Insertion: Oct 05, 2017 A/P Problem List: (1) Abscess in epidural space of lumbar spine ICD Code: G06.1 - Intraspinal abscess and granuloma (2) Gram-positive bacteremia ICD Code: R78.81 - Bacteremia Assessment and Plan Abscess in the epidural space of lumbar spine s/p irrigation and debridement and redo laminectomy L4-5 by orthopedic surgery, bed rest recommended Wound positive for MRSA. Currently on daptomycin and cefepime per ID port removal and replacement has been attempted by IR but was not successful, patient is not candidate for port placement in the chest secondary to fibrosis Pain management with Lortab and morphine sulfate consult regarding narcotics CSF leak status post LP Subarachnoid drain removed by interventional radiology due to failure. Headaches are improved today, drainage is less, continue to monitor Acute renal failure, Resolved Appreciate nephrology consult Will follow BUN and creatinine Staph hominis and coag negative bacteremia. Resolved Currently on Daptomycin and cefepime Appreciate infectious disease following Normochromic normocytic anemia likely secondary to infection 1 unit of packed red blood cells transfused on 10/19/17 Continue ferrous sulfate for iron deficiency anemia Stool occult blood was negative Constipation Responded poorly to p.o. options Glycerin suppository successfully produced a BM yesterday Urinary incontinence Possibly due to lumbar issues Orthopedics recommends Perez Will reevaluate periodically Hypertension Continue home dose Norvasc DVT prophylaxis Coumadin Discharge planning [place] [facility] if qualified Douglas Infante MD Nov 03, 2017 14:50
[2017-11-03 16:00] VITALS: BP 112/64; PULSE 62; RESP 18; TEMP 98.1; O2SAT 94
[2017-11-03] MEDS: WARFARIN SOD 5 MG TAB PO SCH (16:27)
--- NOTE | 2017-11-03 19:30 | HHI.NSPN ---
History Interval History Patient with history of CSF leak post lumbar surgery. Lumbar drainage was attempted without success. Patient has continued to leak. Previously evaluated by neurosurgery Exam Results Vital Signs Date Time Temp Pulse Resp B/P (MAP) Pulse Ox O2 Delivery O2 Flow Rate FiO2 11/03/17 16:00 98.1 62 18 112/64 (80) 94 11/03/17 07:30 Room Air 11/02/17 07:00 2.00 Intake and Output 11/03/17 11/03/17 11/04/17 08:00 16:00 00:00 Intake Total 780 ml Output Total 950 ml Balance -170 ml Physical Examination Patient appears depressed. Able to move lower extremities well Continued drainage from wound Medical Decision Making Impression and Plan Persistent CSF leak. Will probably need repeat surgical intervention Hamilton Salgado MD Nov 03, 2017 19:30
[2017-11-03 20:00] VITALS: BP 98/55; PULSE 64; RESP 18; TEMP 99.2; O2SAT 93
[2017-11-03] MEDS: ZOLPIDEM TARTRATE 5 MG TAB PO PRN (23:11)
[2017-11-04] VITALS: BP 101/59; PULSE 62; RESP 18; TEMP 98.3; O2SAT 92
[2017-11-04 04:00] VITALS: BP 146/65; PULSE 89; RESP 18; TEMP 98.3; O2SAT 95
[2017-11-04] MEDS: cefTRIAXone INJ 1,000 MG in SODIUM CHLORIDE 0.9% INJ 100 ML IV SCH ×2 (05:29→18:00)
[2017-11-04] MEDS: MORPHINE SULFATE 4 MG/ML INJ IV PUSH PRN ×6 (05:30→22:40)
[2017-11-04 08:00] VITALS: BP 107/57; PULSE 64; RESP 18; TEMP 98.8; O2SAT 96
[2017-11-04] MEDS: DAPTOmycin INJ 900 MG in SODIUM CHLORIDE 0.9% INJ 100 ML IV SCH (09:00)
[2017-11-04] MEDS: amLODIPine BESYLATE 5 MG TAB PO SCH (09:00)
[2017-11-04] MEDS: GABAPENTIN 100 MG CAP PO SCH ×3 (09:00→18:00)
[2017-11-04] MEDS: DOCUSATE SODIUM 100 MG CAP PO SCH ×2 (09:00→21:09)
[2017-11-04] MEDS: MULTIVITAMINS/MINERALS THERAPEUTIC TAB PO SCH ×2 (09:00→21:09)
[2017-11-04] MEDS: FLUTICASONE PROPIONATE 50 MCG/ACT 16 GM NASAL SPRAY NASAL SCH (09:00)
[2017-11-04] MEDS: FERROUS SULFATE 325 MG (65 MG ELEMENTAL IRON) TAB PO SCH ×2 (09:00→21:09)
[2017-11-04] MEDS: PANTOPRAZOLE SOD 20 MG DELAYED RELEASE TAB PO SCH (09:00)
[2017-11-04 09:42] LABS: AUTOMATED NEUTROPHIL # 6.2 TH/MM3 (1.8-7.7); BASOPHIL # 0.1 TH/MM3 (0-0.2); BASOPHIL % 0.7 % (0.0-2.0); EOSINOPHIL # 0.1 TH/MM3 (0-0.4); EOSINOPHIL % 1.5 % (0.0-4.0); HEMATOCRIT 29.4 % (35.0-46.0); HEMOGLOBIN 9.5 GM/DL (11.6-15.3); LYMPH % 20.1 % (9.0-44.0); LYMPHOCYTE # 1.8 TH/MM3 (1.0-4.8); MEAN CELL VOLUME 89.3 FL (80.0-100.0); MEAN CORPUSCULAR HEMOGLOBIN 28.8 PG (27.0-34.0); MEAN CORPUSCULAR HGB CONC 32.3 % (32.0-36.0); MEAN PLATELET VOLUME 8.6 FL (7.0-11.0); MONO % 9.4 % (0.0-8.0); MONOCYTE # 0.9 TH/MM3 (0-0.9); NEUT % 68.3 % (16.0-70.0); PLATELET COUNT 255 TH/MM3 (150-450); RED CELL DISTRIBUTION WIDTH 16.7 % (11.6-17.2); WHITE BLOOD COUNT 9.1 TH/MM3 (4.0-11.0)
[2017-11-04 12:00] VITALS: BP 121/60; PULSE 61; RESP 18; TEMP 99.1; O2SAT 93
--- NOTE | 2017-11-04 14:48 | HHI.PR ---
Subjective Remarks Patient states she is having less headache today. Nurse informed me that there is only one small drop of leakage on her lower back bandages today. Objective Vitals Vital Signs Date Time Temp Pulse Resp B/P (MAP) Pulse Ox O2 Delivery O2 Flow Rate FiO2 11/04/17 12:00 99.1 61 18 121/60 (80) 93 11/04/17 08:00 98.8 64 18 107/57 (74) 96 11/04/17 07:30 Room Air 11/04/17 04:00 98.3 89 18 146/65 (92) 95 11/04/17 00:00 98.3 62 18 101/59 (73) 92 11/03/17 21:00 93 Room Air 11/03/17 20:00 99.2 64 18 98/55 (69) 93 11/03/17 16:00 98.1 62 18 112/64 (80) 94 I/O 11/03/17 11/03/17 11/03/17 11/04/17 11/04/17 11/04/17 07:00 15:00 23:00 07:00 15:00 23:00 Intake Total 780 ml 98 ml Output Total 950 ml 3200 ml Balance -170 ml -3102 ml Intake Oral 780 ml IV Total 98 ml Output Urine Total 950 ml 3200 ml # Bowel Movements 0 Result Diagram: 11/04/17 0815 10/31/17 0849 Objective Remarks GENERAL: Morbidly obese, extra-wide bed SKIN: Warm and dry. HEAD: Normocephalic. EYES: No scleral icterus. No injection or drainage. NECK: Supple, trachea midline. No JVD or lymphadenopathy. CARDIOVASCULAR: Regular rate and rhythm without murmurs, gallops, or rubs. RESPIRATORY: Breath sounds equal bilaterally. No accessory muscle use. GASTROINTESTINAL: Abdomen soft, non-tender, nondistended. EXTREMITIES: No cyanosis, or edema. NEUROLOGICAL: Awake, alert, and oriented x 3. Non-focal. Procedures 1. Lumbar spine irrigation and debridement, and drainage of lumbar spine abscess. 2. L4-5 decompressive laminectomy, foraminotomy, reexploration and repair of dural leak. 10/29/17 Lumbar puncture and drain placement Date of Insertion: Oct 05, 2017 A/P Problem List: (1) Abscess in epidural space of lumbar spine ICD Code: G06.1 - Intraspinal abscess and granuloma (2) Gram-positive bacteremia ICD Code: R78.81 - Bacteremia Assessment and Plan Abscess in the epidural space of lumbar spine s/p irrigation and debridement and redo laminectomy L4-5 by orthopedic surgery, bed rest recommended Wound positive for MRSA. Currently on daptomycin and cefepime per ID port removal and replacement has been attempted by IR but was not successful, patient is not candidate for port placement in the chest secondary to fibrosis Pain management with Lortab and morphine sulfate consult regarding narcotics Persistent CSF leak status LP, Subarachnoid drain removed by interventional radiology due to failure shortly after insertion, now resolving with time. Lower back drainage is nearly absent and headaches are nearly gone. Acute renal failure, Resolved Appreciate nephrology consult Will follow BUN and creatinine Staph hominis and coag negative bacteremia. Resolved Currently on Daptomycin and cefepime Appreciate infectious disease following Normochromic normocytic anemia likely secondary to infection 1 unit of packed red blood cells transfused on 10/19/17 Continue ferrous sulfate for iron deficiency anemia Stool occult blood was negative Constipation Responded poorly to p.o. options Glycerin suppository successfully produced a BM yesterday Urinary incontinence Possibly due to lumbar issues Orthopedics recommends Perez Will reevaluate periodically Hypertension Continue home dose Norvasc DVT prophylaxis Coumadin Discharge planning [place] [facility] if qualified Douglas Infante MD Nov 04, 2017 14:48
[2017-11-04] MEDS: WARFARIN SOD 5 MG TAB PO SCH (15:43)
[2017-11-04 16:00] VITALS: BP 116/66; PULSE 86; RESP 18; TEMP 98.3; O2SAT 100
[2017-11-04] MEDS: DEXTROSE 5%-LACTATED RING INJ 1,000 ML IV SCH (18:39)
[2017-11-04 20:00] VITALS: BP 105/52; PULSE 70; RESP 18; TEMP 98; O2SAT 95
[2017-11-04] MEDS: BISACODYL 10 MG SUPP RECTAL PRN (21:09)
[2017-11-05] VITALS: BP 103/52; PULSE 67; RESP 18; TEMP 98.3; O2SAT 96
[2017-11-05] MEDS: MORPHINE SULFATE 4 MG/ML INJ IV PUSH PRN ×7 (02:07→23:52)
[2017-11-05 04:00] VITALS: BP 109/56; PULSE 67; RESP 18; TEMP 98.2; O2SAT 96
[2017-11-05] MEDS: cefTRIAXone INJ 1,000 MG in SODIUM CHLORIDE 0.9% INJ 100 ML IV SCH ×2 (05:03→16:38)
--- NOTE | 2017-11-05 07:17 | PD.ORT.PN ---
Subjective Subjective Remarks POD # 31Lumbar spine I&D MRSA Headache and CSF leak stopped 2 days ago.No c/o leg pain today Patient previously developed drainage from lumbar spine since 10/31 lumbar drain was discontinued 11/01 by I.R. Objective Vitals Vital Signs Date Time Temp Pulse Resp B/P (MAP) Pulse Ox O2 Delivery O2 Flow Rate FiO2 11/05/17 04:00 98.2 67 18 109/56 (73) 96 11/05/17 00:00 98.3 67 18 103/52 (69) 96 11/04/17 20:00 98.0 70 18 105/52 (69) 95 11/04/17 20:00 95 Room Air 11/04/17 16:00 98.3 86 18 116/66 (83) 100 11/04/17 12:00 99.1 61 18 121/60 (80) 93 11/04/17 08:00 98.8 64 18 107/57 (74) 96 11/04/17 07:30 Room Air I/O 11/04/17 11/04/17 11/04/17 11/05/17 11/05/17 11/05/17 07:00 15:00 23:00 07:00 15:00 23:00 Intake Total 98 ml Output Total 3200 ml 800 ml Balance -3102 ml -800 ml IV Total 98 ml Output Urine Total 3200 ml 800 ml Result Diagram: 11/04/17 0815 Objective Remarks Alfonso cath in place Lumbar dressing, pt has no further lumbar spine drainage, no erythema motor +5/5 to LE Neurologically no focal deficit. Assessment & Plan Assessment and Plan pod #31 s/p lumbar spine I&D with MRSA infection LP drain on 10/29, removed on 11/01;lumbar spine stopped draining on 11/03 Patient is to maintain bedrest this , if patient is having continued drainage on Sunday; Dr. Wadsworth will re-evaluate Sunday(today) about surgical management Unable to replace infusaport by IR Continue antibiotics per I.D. ; Kleb. pneumonia cultured in CSF,D/W Dr Reece of [place],he is going to treat medically; vanco was stopped due to acute renal failure and cubicin was started, nephrology following Bedrest with no higher than 30 degrees of elevation of bed Coumadin 5 mg daily. Pt/INR Sunday morning Patient unable to tolerate Ensure, Await Dietary consult, eval for assistance and management of malnutrition. Albumin 2.9 Continue alfonso cath. Pt was urinating on herself in bed and there is concern about effect on lumbar spine wound. Medical team evaluating and treating anemia and malnutrition Dylan Martin MD Nov 05, 2017 07:17
[2017-11-05 07:50] VITALS: BP 138/76; PULSE 69; RESP 18; TEMP 98.7; O2SAT 94
[2017-11-05] MEDS: PANTOPRAZOLE SOD 20 MG DELAYED RELEASE TAB PO SCH (08:30)
[2017-11-05] MEDS: amLODIPine BESYLATE 5 MG TAB PO SCH (08:30)
[2017-11-05] MEDS: FLUTICASONE PROPIONATE 50 MCG/ACT 16 GM NASAL SPRAY NASAL SCH (08:31)
[2017-11-05] MEDS: GABAPENTIN 100 MG CAP PO SCH ×3 (08:31→16:41)
[2017-11-05] MEDS: FERROUS SULFATE 325 MG (65 MG ELEMENTAL IRON) TAB PO SCH ×2 (08:31→20:43)
[2017-11-05] MEDS: MULTIVITAMINS/MINERALS THERAPEUTIC TAB PO SCH ×2 (08:31→20:47)
[2017-11-05] MEDS: DOCUSATE SODIUM 100 MG CAP PO SCH ×2 (08:31→20:43)
[2017-11-05] MEDS: DAPTOmycin INJ 900 MG in SODIUM CHLORIDE 0.9% INJ 100 ML IV SCH (09:41)
[2017-11-05] MEDS: DEXTROSE 5%-LACTATED RING INJ 1,000 ML IV SCH ×2 (11:17→12:45)
[2017-11-05 12:07] VITALS: BP 134/61; PULSE 71; RESP 18; TEMP 98; O2SAT 94
[2017-11-05 16:00] VITALS: BP 145/78; PULSE 86; RESP 19; TEMP 98.6; O2SAT 94
--- NOTE | 2017-11-05 16:15 | HHI.PR ---
Subjective Remarks Nurse reports only scant drainage on dressing. Nearly absent. Patient reports her headaches are reduced. She remains afebrile. Objective Vitals Vital Signs Date Time Temp Pulse Resp B/P (MAP) Pulse Ox O2 Delivery O2 Flow Rate FiO2 11/05/17 12:58 18 11/05/17 12:07 98.0 71 18 134/61 (85) 94 11/05/17 10:30 Room Air 11/05/17 07:50 98.7 69 18 138/76 (96) 94 11/05/17 04:00 98.2 67 18 109/56 (73) 96 11/05/17 00:00 98.3 67 18 103/52 (69) 96 11/04/17 20:00 98.0 70 18 105/52 (69) 95 11/04/17 20:00 95 Room Air I/O 11/04/17 11/04/17 11/04/17 11/05/17 11/05/17 11/05/17 07:00 15:00 23:00 07:00 15:00 23:00 Intake Total 98 ml 100 ml Output Total 3200 ml 800 ml Balance -3102 ml -800 ml 100 ml IV Total 98 ml 100 ml Output Urine Total 3200 ml 800 ml Result Diagram: 11/04/17 0815 Objective Remarks GENERAL: Morbidly obese, extra-wide bed SKIN: Warm and dry. HEAD: Normocephalic. EYES: No scleral icterus. No injection or drainage. NECK: Supple, trachea midline. No JVD or lymphadenopathy. CARDIOVASCULAR: Regular rate and rhythm without murmurs, gallops, or rubs. RESPIRATORY: Breath sounds equal bilaterally. No accessory muscle use. GASTROINTESTINAL: Abdomen soft, non-tender, nondistended. EXTREMITIES: No cyanosis, or edema. NEUROLOGICAL: Awake, alert, and oriented x 3. Non-focal. Procedures 1. Lumbar spine irrigation and debridement, and drainage of lumbar spine abscess. 2. L4-5 decompressive laminectomy, foraminotomy, reexploration and repair of dural leak. 10/29/17 Lumbar puncture and drain placement Date of Insertion: Oct 05, 2017 A/P Problem List: (1) Abscess in epidural space of lumbar spine ICD Code: G06.1 - Intraspinal abscess and granuloma (2) Gram-positive bacteremia ICD Code: R78.81 - Bacteremia Assessment and Plan Abscess in the epidural space of lumbar spine s/p irrigation and debridement and redo laminectomy L4-5 by orthopedic surgery, bed rest recommended Wound positive for MRSA. Currently on daptomycin and cefepime per ID port removal and replacement has been attempted by IR but was not successful, patient is not candidate for port placement in the chest secondary to fibrosis Pain management with Lortab and morphine sulfate consult regarding narcotics Persistent CSF leak status LP, Subarachnoid drain removed by interventional radiology due to failure shortly after insertion, now resolving with time. Lower back drainage is nearly absent and headaches are nearly gone, improving daily Acute renal failure, Resolved Appreciate nephrology consult Will follow BUN and creatinine Staph hominis and coag negative bacteremia. Resolved Currently on Daptomycin and cefepime Appreciate infectious disease following Normochromic normocytic anemia likely secondary to infection 1 unit of packed red blood cells transfused on 10/19/17 Continue ferrous sulfate for iron deficiency anemia Stool occult blood was negative Constipation Responded poorly to p.o. options Glycerin suppository as needed Urinary incontinence Possibly due to lumbar issues Orthopedics recommends Perez Will reevaluate periodically Hypertension Continue home dose Norvasc DVT prophylaxis Coumadin Discharge planning [place] [facility] if qualified Douglas Infante MD Nov 05, 2017 16:15
[2017-11-05] MEDS: WARFARIN SOD 5 MG TAB PO SCH (16:38)
[2017-11-05 20:41] VITALS: BP 128/80; PULSE 60; RESP 18; TEMP 98; O2SAT 96
--- NOTE | 2017-11-05 23:42 | HHI.NSPN ---
History Interval History She has not noted any drainage from the incision over the past day. Her dressing was changed per nursing staff just prior to my visit today . She has no complaint of headache. Exam Results Vital Signs Date Time Temp Pulse Resp B/P (MAP) Pulse Ox O2 Delivery O2 Flow Rate FiO2 11/05/17 20:51 96 Room Air 11/05/17 20:41 98.0 60 18 128/80 (96) 11/02/17 07:00 2.00 Intake and Output 11/05/17 11/05/17 11/06/17 08:00 16:00 00:00 Intake Total 580 ml 100 ml Output Total 800 ml 500 ml Balance -800 ml 80 ml 100 ml Physical Examination Awake and alert Speech is clear Sensation intact by touch all extremities Normal motor function major flexion-extension groups lower extremities Incision and dressing are dry at the present time. Medical Decision Making Impression and Plan Impression: 1. Postoperative CSF leak. Per report, the patient had some leakage for a couple of days after the drain was removed on approximately 11/01/17, particularly when out of bed over the weekend, but no further leakage noted the past couple of days with presumed bed rest . Recommendations: Findings were discussed with the patient. Options of further conservative treatment and observation, and reexploration of the wound sites have all been discussed. She is in agreement with a couple more days of bed rest. She will try to mobilize out of bed on 11/07/17, and if any further CSF leak noted, then reexploration of the wound will be undertaken. Nelson Wadsworth MD Nov 05, 2017 23:42
[2017-11-06 00:04] VITALS: BP 136/70; PULSE 71; RESP 18; TEMP 98.5; O2SAT 97
[2017-11-06] MEDS: ZOLPIDEM TARTRATE 5 MG TAB PO PRN ×2 (00:15→20:33)
[2017-11-06] MEDS: MORPHINE SULFATE 4 MG/ML INJ IV PUSH PRN ×6 (04:41→20:34)
[2017-11-06] MEDS: cefTRIAXone INJ 1,000 MG in SODIUM CHLORIDE 0.9% INJ 100 ML IV SCH ×2 (05:31→17:50)
[2017-11-06 06:00] VITALS: BP 149/66; PULSE 66; RESP 18; TEMP 98; O2SAT 95
[2017-11-06] MEDS: DAPTOmycin INJ 900 MG in SODIUM CHLORIDE 0.9% INJ 100 ML IV SCH (07:48)
[2017-11-06 07:50] VITALS: BP 135/71; PULSE 64; RESP 21; TEMP 98.9; O2SAT 99
[2017-11-06] MEDS: GABAPENTIN 100 MG CAP PO SCH ×3 (07:50→17:49)
[2017-11-06] MEDS: DOCUSATE SODIUM 100 MG CAP PO SCH ×2 (07:50→20:34)
[2017-11-06] MEDS: PANTOPRAZOLE SOD 20 MG DELAYED RELEASE TAB PO SCH (07:50)
[2017-11-06] MEDS: amLODIPine BESYLATE 5 MG TAB PO SCH (07:51)
[2017-11-06] MEDS: FERROUS SULFATE 325 MG (65 MG ELEMENTAL IRON) TAB PO SCH ×2 (07:51→20:33)
[2017-11-06] MEDS: MULTIVITAMINS/MINERALS THERAPEUTIC TAB PO SCH ×2 (07:57→20:34)
[2017-11-06] MEDS: FLUTICASONE PROPIONATE 50 MCG/ACT 16 GM NASAL SPRAY NASAL SCH (07:58)
[2017-11-06 08:54] LABS: INTERNATIONAL NORMALIZED RATIO 1.3 RATIO; PROTHROMBIN TIME - PATIENT 13.1 SEC (9.8-11.6)
[2017-11-06] MEDS: DEXTROSE 5%-LACTATED RING INJ 1,000 ML IV SCH (08:56)
[2017-11-06 11:31] VITALS: BP 122/60; PULSE 58; RESP 20; TEMP 98.4; O2SAT 96
--- NOTE | 2017-11-06 11:47 | PD.ORT.PN ---
Subjective Subjective Remarks Headache and CSF leak stopped 3 days ago.No c/o leg pain today Patient previously developed drainage from lumbar spine since 10/31 lumbar drain was discontinued 11/01 by I.R. Objective Vitals Vital Signs Date Time Temp Pulse Resp B/P (MAP) Pulse Ox O2 Delivery O2 Flow Rate FiO2 11/06/17 11:31 98.4 58 20 122/60 (80) 96 11/06/17 07:50 98.9 64 21 135/71 (92) 99 11/06/17 07:07 Room Air 11/06/17 06:00 98.0 66 18 149/66 (93) 95 11/06/17 00:04 98.5 71 18 136/70 (92) 97 11/05/17 20:51 96 Room Air 11/05/17 20:41 98.0 60 18 128/80 (96) 96 11/05/17 16:00 98.6 86 19 145/78 (100) 94 11/05/17 12:58 18 11/05/17 12:07 98.0 71 18 134/61 (85) 94 I/O 11/05/17 11/05/17 11/05/17 11/06/17 11/06/17 11/06/17 06:59 14:59 22:59 06:59 14:59 22:59 Intake Total 580 ml 100 ml 100 ml Output Total 800 ml 500 ml Balance -800 ml 80 ml 100 ml 100 ml Intake Oral 480 ml IV Total 100 ml 100 ml 100 ml Output Urine Total 800 ml 500 ml # Voids 2 # Bowel Movements 0 Result Diagram: 11/04/17 0815 Other Results Laboratory Tests Test 11/06/17 07:24 Prothromb Time International Ratio 1.3 RATIO Prothrombin Time 13.1 SEC (9.8-11.6) Objective Remarks Alfonso cath in place Lumbar dressing, pt has no further lumbar spine drainage, no erythema;remove sutures today motor +5/5 to LE Neurologically no focal deficit. Assessment & Plan Assessment and Plan LP drain on 10/29, removed on 11/01;lumbar spine stopped draining on 11/03 Patient is to maintain bedrest today;patient will get OOB tomorrow with PT;if patient developes recurrent dranage, Dr. Wadsworth will re-evaluate about surgical management;if patient has no evidence of recurrent drainage,will look into [place] [facility] for continued rehab Unable to replace infusaport by IR Continue antibiotics per I.D. ; Kleb. pneumonia cultured in CSF,D/W Dr Reece of [place],he is going to treat medically; vanco was stopped due to acute renal failure and cubicin was started, nephrology following Bedrest with no higher than 30 degrees of elevation of bed Coumadin 5 mg daily. Pt/INR tomorrow morning Patient unable to tolerate Ensure, Await Dietary consult, eval for assistance and management of malnutrition. Albumin 2.9 Continue alfonso cath. Pt was urinating on herself in bed and there is concern about effect on lumbar spine wound. Medical team evaluating and treating anemia and malnutrition Dylan Martin MD Nov 06, 2017 11:47
[2017-11-06] MEDS: WARFARIN SOD 5 MG TAB PO SCH (14:48)
[2017-11-06 16:18] VITALS: BP 123/59; PULSE 58; RESP 20; TEMP 98.3; O2SAT 97
--- NOTE | 2017-11-06 17:26 | HHI.PR ---
Subjective Remarks Patient reports that she no longer has a headache. She is upright in bed. She was told that she will be tested with physical therapy tomorrow. If that produces more cerebrospinal leakage since he must undergo surgery to address it. If she is able to tolerate physical therapy without any CSF leakage then she will be prepared for [facility], anticipating later this week. Objective Vitals Vital Signs Date Time Temp Pulse Resp B/P (MAP) Pulse Ox O2 Delivery O2 Flow Rate FiO2 11/06/17 16:18 98.3 58 20 123/59 (80) 97 11/06/17 12:20 16 11/06/17 11:31 98.4 58 20 122/60 (80) 96 11/06/17 07:50 98.9 64 21 135/71 (92) 99 11/06/17 07:07 Room Air 11/06/17 06:00 98.0 66 18 149/66 (93) 95 11/06/17 00:04 98.5 71 18 136/70 (92) 97 11/05/17 20:51 96 Room Air 11/05/17 20:41 98.0 60 18 128/80 (96) 96 I/O 11/05/17 11/05/17 11/05/17 11/06/17 11/06/17 11/06/17 07:00 15:00 23:00 07:00 15:00 23:00 Intake Total 580 ml 100 ml 100 ml Output Total 800 ml 500 ml Balance -800 ml 80 ml 100 ml 100 ml Intake Oral 480 ml IV Total 100 ml 100 ml 100 ml Output Urine Total 800 ml 500 ml # Voids 2 # Bowel Movements 0 Result Diagram: 11/04/17 0815 Objective Remarks GENERAL: Morbidly obese, extra-wide bed SKIN: Warm and dry. HEAD: Normocephalic. EYES: No scleral icterus. No injection or drainage. NECK: Supple, trachea midline. No JVD or lymphadenopathy. CARDIOVASCULAR: Regular rate and rhythm without murmurs, gallops, or rubs. RESPIRATORY: Breath sounds equal bilaterally. No accessory muscle use. GASTROINTESTINAL: Abdomen soft, non-tender, nondistended. EXTREMITIES: No cyanosis, or edema. NEUROLOGICAL: Awake, alert, and oriented x 3. Non-focal. Procedures 1. Lumbar spine irrigation and debridement, and drainage of lumbar spine abscess. 2. L4-5 decompressive laminectomy, foraminotomy, reexploration and repair of dural leak. 10/29/17 Lumbar puncture and drain placement Date of Insertion: Oct 05, 2017 A/P Problem List: (1) Abscess in epidural space of lumbar spine ICD Code: G06.1 - Intraspinal abscess and granuloma (2) Gram-positive bacteremia ICD Code: R78.81 - Bacteremia Assessment and Plan Abscess in the epidural space of lumbar spine s/p irrigation and debridement and redo laminectomy L4-5 by orthopedic surgery, bed rest recommended Wound positive for MRSA. Currently on daptomycin and cefepime per ID port removal and replacement has been attempted by IR but was not successful, patient is not candidate for port placement in the chest secondary to fibrosis Pain management with Lortab and morphine sulfate consult regarding narcotics Persistent CSF leak status LP, Subarachnoid drain removed by interventional radiology due to failure shortly after insertion, now resolving with time. Lower back drainage is nearly absent and headaches are nearly gone, improving daily The plan is to begin physical therapy tomorrow and monitor for any evidence of CSF leakage following that activity. Acute renal failure, Resolved Appreciate nephrology consult Will follow BUN and creatinine Staph hominis and coag negative bacteremia. Resolved Currently on Daptomycin and cefepime Appreciate infectious disease following Normochromic normocytic anemia likely secondary to infection 1 unit of packed red blood cells transfused on 10/19/17 Continue ferrous sulfate for iron deficiency anemia Stool occult blood was negative Constipation Responded poorly to p.o. options Glycerin suppository as needed Urinary incontinence Possibly due to lumbar issues Orthopedics recommends Perez Will reevaluate periodically Hypertension Continue home dose Norvasc DVT prophylaxis Coumadin Discharge planning If patient can tolerate standing and walking without causing recurrence of CSF leak and she will be ready to transfer to outpatient rehab. Douglas Infante MD Nov 06, 2017 5:26 pm
[2017-11-06 21:00] VITALS: BP 122/82; PULSE 67; RESP 18; TEMP 98.1
[2017-11-07] VITALS: BP 130/74; PULSE 60; RESP 18; TEMP 98.7; O2SAT 99
[2017-11-07] MEDS: MORPHINE SULFATE 4 MG/ML INJ IV PUSH PRN ×7 (00:15→20:40)
[2017-11-07 06:15] VITALS: BP 139/63; PULSE 59; RESP 18; TEMP 98.9; O2SAT 99
[2017-11-07] MEDS: cefTRIAXone INJ 1,000 MG in SODIUM CHLORIDE 0.9% INJ 100 ML IV SCH ×2 (06:26→16:09)
[2017-11-07] MEDS: DEXTROSE 5%-LACTATED RING INJ 1,000 ML IV SCH (06:26)
[2017-11-07] MEDS: FERROUS SULFATE 325 MG (65 MG ELEMENTAL IRON) TAB PO SCH ×2 (07:50→20:40)
--- NOTE | 2017-11-07 07:50 | PD.ORT.PN ---
Subjective Subjective Remarks lumbar spine I&D with MRSA infection: intra-op findings did not show evidence of epidural abscess pt is feeling good today, sitting upright with no headaches, mild back pain, no radiating leg pain Objective Vitals Vital Signs Date Time Temp Pulse Resp B/P (MAP) Pulse Ox O2 Delivery O2 Flow Rate FiO2 11/07/17 06:15 98.9 59 18 139/63 (88) 99 11/07/17 00:00 98.7 60 18 130/74 (92) 99 11/06/17 21:00 98.1 67 18 122/82 (95) 11/06/17 20:40 97 Room Air 11/06/17 16:18 98.3 58 20 123/59 (80) 97 11/06/17 12:20 16 11/06/17 11:31 98.4 58 20 122/60 (80) 96 11/06/17 07:50 98.9 64 21 135/71 (92) 99 I/O 11/06/17 11/06/17 11/06/17 11/07/17 11/07/17 11/07/17 07:00 15:00 23:00 07:00 15:00 23:00 Intake Total 100 ml 100 ml Balance 100 ml 100 ml IV Total 100 ml 100 ml # Voids 2 3 Result Diagram: 11/04/17 0815 Objective Remarks Lumbar dressing is dry, no drainage, wound healing well, all sutures removed yesterday motor +5/5 to LE Neurologically no focal deficit. Assessment & Plan Assessment and Plan LP drain on 10/29, removed on 11/01; lumbar spine stopped draining on 11/03 patient is to be OOB today with PT;if patient develops recurrent dranage, Dr. Wadsworth will re-evaluate about surgical management;if patient has no evidence of recurrent drainage,will look into [place] [facility] for continued rehab Unable to replace infusaport by IR Continue antibiotics per I.D. ; Kleb. pneumonia cultured in CSF,D/W Dr Reece of [place],he is going to treat medically; vanco was stopped due to acute renal failure and cubicin was started, nephrology following Coumadin DVT prop Patient unable to tolerate Ensure, Await Dietary consult, eval for assistance and management of malnutrition. Albumin 2.9 Medical team evaluating and treating anemia and malnutrition Shannan Palacios Nov 07, 2017 07:50
[2017-11-07] MEDS: PANTOPRAZOLE SOD 20 MG DELAYED RELEASE TAB PO SCH (07:51)
[2017-11-07] MEDS: amLODIPine BESYLATE 5 MG TAB PO SCH (07:51)
[2017-11-07] MEDS: DAPTOmycin INJ 900 MG in SODIUM CHLORIDE 0.9% INJ 100 ML IV SCH (07:51)
[2017-11-07] MEDS: GABAPENTIN 100 MG CAP PO SCH ×3 (07:51→16:10)
[2017-11-07] MEDS: DOCUSATE SODIUM 100 MG CAP PO SCH ×2 (07:51→20:40)
[2017-11-07] MEDS: FLUTICASONE PROPIONATE 50 MCG/ACT 16 GM NASAL SPRAY NASAL SCH (07:52)
[2017-11-07 07:54] VITALS: BP 116/55; PULSE 55; RESP 20; TEMP 98.3; O2SAT 95
[2017-11-07] MEDS: MULTIVITAMINS/MINERALS THERAPEUTIC TAB PO SCH ×2 (08:03→20:41)
--- NOTE | 2017-11-07 11:25 | HHI.DS ---
Discharge Summary Admission Date Oct 05, 2017 at 15:53 Admitting Diagnosis (1) Abscess in epidural space of lumbar spine ICD Code: G06.1 - Intraspinal abscess and granuloma (2) Gram-positive bacteremia ICD Code: R78.81 - Bacteremia Procedures 1. Lumbar spine irrigation and debridement, and drainage of lumbar spine abscess. 2. L4-5 decompressive laminectomy, foraminotomy, reexploration and repair of dural leak. 10/29/17 Lumbar puncture and drain placement Brief History - From Admission patient is a 61 y/o female with history of spinal stenosis who underwent L4-5 laminectomy about two weeks ago , underwent I/D of the deep abscess and redo Laminectomy yesterday. at the time of my evaluation she was in no acute distress but complaining of moderate to severe back pain. she denies any chest pain, abdominal pain, dizziness,nausea. d/w the RN at the bedside. CBC/BMP: 11/04/17 0815 Significant Findings Laboratory Tests Test 11/06/17 07:24 Prothrombin Time 13.1 SEC (9.8-11.6) PE at Discharge GENERAL: Morbidly obese, extra-wide bed SKIN: Warm and dry. HEAD: Normocephalic. EYES: No scleral icterus. No injection or drainage. NECK: Supple, trachea midline. No JVD or lymphadenopathy. CARDIOVASCULAR: Regular rate and rhythm without murmurs, gallops, or rubs. RESPIRATORY: Breath sounds equal bilaterally. No accessory muscle use. GASTROINTESTINAL: Abdomen soft, non-tender, nondistended. EXTREMITIES: No cyanosis, or edema. NEUROLOGICAL: Awake, alert, and oriented x 3. Non-focal. Kamla Bermudez MD Nov 07, 2017 11:25
[2017-11-07] MEDS ORDERED: DOCU1CAP39 PO (11:31)
[2017-11-07] MEDS ORDERED: AMLO5 PO (11:31)
[2017-11-07] MEDS ORDERED: FLUT50SP NASAL (11:31)
[2017-11-07] MEDS ORDERED: HYDR-3288 PO (11:31)
[2017-11-07] MEDS ORDERED: GABA100C4 PO (11:31)
[2017-11-07] MEDS ORDERED: THERM PO (11:31)
[2017-11-07] MEDS ORDERED: FERR325T20 PO (11:31)
[2017-11-07] MEDS ORDERED: COUM5TAB PO (11:31)
[2017-11-07] MEDS ORDERED: LISI-519 PO (11:31)
[2017-11-07 11:35] VITALS: BP 132/60; PULSE 58; RESP 20; TEMP 98.6; O2SAT 97
--- NOTE | 2017-11-07 12:40 | HHI.PR ---
Subjective Remarks Appears in not acute distress at this time. Says pain in her back is controlled by medications. Has some numbness on/off in her legs. Says there is no more drainage from back for some days now. However she needs to walk with physical therapy today and drainage from her back. Fever or chills. Feels tired. Feels deconditioned. No nausea or vomiting no diarrhea or constipation. Objective Vitals Vital Signs Date Time Temp Pulse Resp B/P (MAP) Pulse Ox O2 Delivery O2 Flow Rate FiO2 11/07/17 11:35 98.6 58 20 132/60 (84) 97 11/07/17 09:55 18 11/07/17 07:54 98.3 55 20 116/55 (75) 95 11/07/17 07:00 95 Room Air 11/07/17 06:15 98.9 59 18 139/63 (88) 99 11/07/17 00:00 98.7 60 18 130/74 (92) 99 11/06/17 21:00 98.1 67 18 122/82 (95) 11/06/17 20:40 97 Room Air 11/06/17 16:18 98.3 58 20 123/59 (80) 97 I/O 11/06/17 11/06/17 11/06/17 11/07/17 11/07/17 11/07/17 07:00 15:00 23:00 07:00 15:00 23:00 Intake Total 100 ml 100 ml Balance 100 ml 100 ml IV Total 100 ml 100 ml # Voids 2 3 Result Diagram: 11/04/17 0815 Imaging Last Impressions Lumbar Puncture 11/01/17 0000 Signed Impressions: Service Date/Time: October 15:52 - CONCLUSION: 1. Lumbar drain catheter has been displaced to the L4 level and therefore was removed. The Findings were personally discussed with Drs. Wadsworth and Mario. Foreign Blancas MD Lumbar Puncture Fluoroscopy 10/29/17 0000 Signed Impressions: Service Date/Time: Sunday, October 29, 2017 09:12 - CONCLUSION: Uncomplicated lumbar drain placement as above. Foreign Blancas MD Lumbar Spine MRI 10/25/17 0000 Signed Impressions: Service Date/Time: October 13:20 - CONCLUSION: 1. Persistent fluid collection extending from the laminectomy defect at L4-5 into the subcutaneous tissues in the midline of the back measures 4.8 cm AP x 6.8 cm TRV x 9.7 cm SAG. 2. Moderate spinal stenosis at L4-5 and mild spinal stenosis at L3-4 and L5-S1. 3. Moderate bilateral foraminal narrowing at L4-5 and L5-S1 and moderate right neural foraminal narrowing at L3-4. 4. Resolution of the previously noted CSF collection in the posterior spinal canal extending from T12 through L2. 5. Grade I anterolisthesis of L4 in relation to L5. 6. Degenerative disc disease L3-4, L4-5 and L5-S1. 7. Facet joint hypertrophy bilaterally from L3 through L5. Gio Verduzco MD Venous Access Device Injection 10/23/17 0000 Signed Impressions: Service Date/Time: Monday, October 23, 2017 11:57 - CONCLUSION: 1. The catheter tip port is at the level of the right atria. 2. The patient has complete central venous occlusion. 3. Please see above. Mati Posada MD Venogram 10/23/17 0000 Signed Impressions: Service Date/Time: Monday, October 23, 2017 11:57 - CONCLUSION: 1. The patient has complete fibrotic central venous occlusion and is not a candidate for Hhskio-l-Shne placement in the upper chest. 2. The existing port which is in an appropriate location and can be used for infusion of medications or other indicated products. 3. The existing port was vigorously flushed with 20 cc of saline following this using a slow, deliberate technique blood could be withdrawn if a 3 cc syringe was used. Mati Posada MD Foreign Body Removal 10/19/17 0000 Signed Impressions: Service Date/Time: Thursday, October 19, 2017 10:40 - CONCLUSION: Fibrin sheath stripping of the patient's port. Dipesh Auguste Jr., MD Renal Ultrasound 10/15/17 0000 Signed Impressions: Service Date/Time: Sunday, October 15, 2017 19:52 - CONCLUSION: Image quality is less than optimal secondary to patient body habitus. However, no hydronephrosis or concerning abnormality is identified. Cole Boston MD Chest X-Ray 10/08/17 0000 Signed Impressions: Service Date/Time: Sunday, October 08, 2017 05:16 - CONCLUSION: 1. Low lung volumes with mild patchy bilateral lower lung zone airspace disease, likely atelectasis. Foreign Blancas MD Objective Remarks GENERAL: Morbidly obese, extra-wide bed SKIN: Warm and dry. Dressing on the lower back c/d/i. HEAD: Normocephalic. EYES: No scleral icterus. No injection or drainage. NECK: Supple, trachea midline. No JVD or lymphadenopathy. CARDIOVASCULAR: Regular rate and rhythm without murmurs, gallops, or rubs. RESPIRATORY: Breath sounds equal bilaterally. No accessory muscle use. GASTROINTESTINAL: Abdomen soft, non-tender, nondistended. EXTREMITIES: No cyanosis, or edema. NEUROLOGICAL: Awake, alert, and oriented x 3. Non-focal. Procedures 1. Lumbar spine irrigation and debridement, and drainage of lumbar spine abscess. 2. L4-5 decompressive laminectomy, foraminotomy, reexploration and repair of dural leak. 10/29/17 Lumbar puncture and drain placement Date of Insertion: Oct 05, 2017 A/P Problem List: (1) Abscess in epidural space of lumbar spine ICD Code: G06.1 - Intraspinal abscess and granuloma (2) Gram-positive bacteremia ICD Code: R78.81 - Bacteremia Assessment and Plan Abscess in the epidural space of lumbar spine S/p irrigation and debridement and redo laminectomy L4-5 by orthopedic surgery, bed rest recommended Wound positive for MRSA. Currently on daptomycin and cefepime per ID port removal and replacement has been attempted by IR but was not successful, patient is not candidate for port placement in the chest secondary to fibrosis Pain management with Lortab and morphine sulfate consult regarding narcotics Persistent CSF leak status LP, Subarachnoid drain removed by interventional radiology due to failure shortly after insertion, now resolving with time. Lower back drainage is nearly absent and headaches are nearly gone, improving daily The plan is to begin physical therapy tomorrow and monitor for any evidence of CSF leakage following that activity. With physical deconditioning. Consult PT/OT. Acute renal failure, Resolved Appreciate nephrology consult Will follow BUN and creatinine Staph hominis and coag negative bacteremia. Resolved Currently on Daptomycin and cefepime Appreciate infectious disease following Normochromic normocytic anemia likely secondary to infection 1 unit of packed red blood cells transfused on 10/19/17 Continue ferrous sulfate for iron deficiency anemia Stool occult blood was negative Constipation Responded poorly to p.o. options Glycerin suppository as needed Urinary incontinence Possibly due to lumbar issues Orthopedics recommends Perez Will reevaluate periodically Hypertension Continue home dose Norvasc DVT prophylaxis Coumadin Discharge planning If patient can tolerate standing and walking without causing recurrence of CSF leak and she will be ready to transfer to rehab [facility] rehab Awaiting also for ID final recommendations for IV abx, need stop date. Left message to Dr Naqvi ID. Kamla Bermudez MD Nov 07, 2017 12:40
--- NOTE | 2017-11-07 12:49 | HHI.DS ---
Discharge Summary Admission Date Oct 05, 2017 at 15:53 Discharge Date: Nov 10, 2017 Admitting Diagnosis Abscess in the epidural space of lumbar spine Bacteremia (1) Abscess in epidural space of lumbar spine ICD Code: G06.1 - Intraspinal abscess and granuloma Status: Chronic (2) Gram-positive bacteremia ICD Code: R78.81 - Bacteremia Status: Acute Procedures 1. Lumbar spine irrigation and debridement, and drainage of lumbar spine abscess. 2. L4-5 decompressive laminectomy, foraminotomy, reexploration and repair of dural leak. 10/29/17 Lumbar puncture and drain placement Brief History - From Admission patient is a 61 y/o female with history of spinal stenosis who underwent L4-5 laminectomy about two weeks ago , underwent I/D of the deep abscess and redo Laminectomy yesterday. at the time of my evaluation she was in no acute distress but complaining of moderate to severe back pain. she denies any chest pain, abdominal pain, dizziness,nausea. d/w the RN at the bedside. CBC/BMP: 11/04/17 0815 Significant Findings Laboratory Tests Test 11/06/17 07:24 Prothrombin Time 13.1 SEC (9.8-11.6) Imaging Last Impressions Lumbar Puncture 11/01/17 0000 Signed Impressions: Service Date/Time: October 15:52 - CONCLUSION: 1. Lumbar drain catheter has been displaced to the L4 level and therefore was removed. The Findings were personally discussed with Drs. Wadsworth and Mario. Foreign Blancas MD Lumbar Puncture Fluoroscopy 10/29/17 0000 Signed Impressions: Service Date/Time: Sunday, October 29, 2017 09:12 - CONCLUSION: Uncomplicated lumbar drain placement as above. Foreign Blancas MD Lumbar Spine MRI 10/25/17 0000 Signed Impressions: Service Date/Time: October 13:20 - CONCLUSION: 1. Persistent fluid collection extending from the laminectomy defect at L4-5 into the subcutaneous tissues in the midline of the back measures 4.8 cm AP x 6.8 cm TRV x 9.7 cm SAG. 2. Moderate spinal stenosis at L4-5 and mild spinal stenosis at L3-4 and L5-S1. 3. Moderate bilateral foraminal narrowing at L4-5 and L5-S1 and moderate right neural foraminal narrowing at L3-4. 4. Resolution of the previously noted CSF collection in the posterior spinal canal extending from T12 through L2. 5. Grade I anterolisthesis of L4 in relation to L5. 6. Degenerative disc disease L3-4, L4-5 and L5-S1. 7. Facet joint hypertrophy bilaterally from L3 through L5. Gio Verduzco MD Venous Access Device Injection 10/23/17 0000 Signed Impressions: Service Date/Time: Monday, October 23, 2017 11:57 - CONCLUSION: 1. The catheter tip port is at the level of the right atria. 2. The patient has complete central venous occlusion. 3. Please see above. Mati Posada MD Venogram 10/23/17 0000 Signed Impressions: Service Date/Time: Monday, October 23, 2017 11:57 - CONCLUSION: 1. The patient has complete fibrotic central venous occlusion and is not a candidate for Zrsans-p-Cwjz placement in the upper chest. 2. The existing port which is in an appropriate location and can be used for infusion of medications or other indicated products. 3. The existing port was vigorously flushed with 20 cc of saline following this using a slow, deliberate technique blood could be withdrawn if a 3 cc syringe was used. Mati Posada MD Foreign Body Removal 10/19/17 0000 Signed Impressions: Service Date/Time: Thursday, October 19, 2017 10:40 - CONCLUSION: Fibrin sheath stripping of the patient's port. Dipesh Auguste Jr., MD Renal Ultrasound 10/15/17 0000 Signed Impressions: Service Date/Time: Sunday, October 15, 2017 19:52 - CONCLUSION: Image quality is less than optimal secondary to patient body habitus. However, no hydronephrosis or concerning abnormality is identified. Cole Boston MD Chest X-Ray 10/08/17 0000 Signed Impressions: Service Date/Time: Sunday, October 08, 2017 05:16 - CONCLUSION: 1. Low lung volumes with mild patchy bilateral lower lung zone airspace disease, likely atelectasis. Foreign Blancas MD PE at Discharge GENERAL: Morbidly obese, extra-wide bed SKIN: Warm and dry. Dressing on the lower back c/d/i. HEAD: Normocephalic. EYES: No scleral icterus. No injection or drainage. NECK: Supple, trachea midline. No JVD or lymphadenopathy. CARDIOVASCULAR: Regular rate and rhythm without murmurs, gallops, or rubs. RESPIRATORY: Breath sounds equal bilaterally. No accessory muscle use. GASTROINTESTINAL: Abdomen soft, non-tender, nondistended. EXTREMITIES: No cyanosis, or edema. NEUROLOGICAL: Awake, alert, and oriented x 3. Non-focal. Hospital Course Abscess in the epidural space of lumbar spine S/p irrigation and debridement and redo laminectomy L4-5 by orthopedic surgery, bed rest recommended Wound positive for MRSA. Currently on daptomycin and cefepime per ID port removal and replacement has been attempted by IR but was not successful, patient is not candidate for port placement in the chest secondary to fibrosis Pain management with Lortab and morphine sulfate consult regarding narcotics Persistent CSF leak status LP, Subarachnoid drain removed by interventional radiology due to failure shortly after insertion, now resolving with time. Lower back drainage is nearly absent and headaches are nearly gone, improving daily The plan is to begin physical therapy tomorrow and monitor for any evidence of CSF leakage following that activity. With physical deconditioning. Consult PT/OT. Acute renal failure, Resolved Appreciate nephrology consult Will follow BUN and creatinine Staph hominis and coag negative bacteremia. Resolved Currently on Daptomycin and cefepime Appreciate infectious disease following Normochromic normocytic anemia likely secondary to infection 1 unit of packed red blood cells transfused on 10/19/17 Continue ferrous sulfate for iron deficiency anemia Stool occult blood was negative Constipation Responded poorly to p.o. options Glycerin suppository as needed Urinary incontinence Possibly due to lumbar issues Orthopedics recommends Perez Will reevaluate periodically Hypertension Continue home dose Norvasc DVT prophylaxis Coumadin Discharge planning If patient can tolerate standing and walking without causing recurrence of CSF leak and she will be ready to transfer to rehab [facility] re[facility] Pt Condition on Discharge: Stable Discharge Disposition: Rehab Inpatient Discharge Time: > 30 minutes Discharge Instructions DIET: Follow Instructions for: Heart Healthy Diet Activities you can perform: Weight Bearing as Sanjay Follow up Referrals: Infectious Disease - 3-5 Days with Shukri Naqvi MD Neurosurgery - 1 Week with Nelson Wadsworth MD PCP Follow-up - 2-3 Days New Orders: BASIC METABOLIC PROF - 2-3 Days New Medications: Ceftriaxone Inj (Ceftriaxone Inj) 1 Gram Inj 1 GM IM Q12HR for Infection, #62 VIAL 0 Refills END DATE OF CEFTRIAXONE IS 12/10/17 Daptomycin Inj (Daptomycin Inj) 500 Mg Vial 900 MG IV Q24H for Infection, #28 VIAL 0 Refills Must dilute in appropriate IV Fluid prior to administration Oxycodone (Oxycodone) 5 Mg Cap 5 MG PO Q6H PRN for PAIN, #30 CAP 0 Refills Amlodipine (Norvasc) 5 Mg Tab 5 MG PO DAILY for Blood Pressure Management, #30 TAB Docusate Sodium (Dok) 100 Mg Cap 100 MG PO BID for Constipation, #60 CAP Enoxaparin Inj (Lovenox Inj) 150 Mg/Ml Syr 140 MG SQ Q12H for Blood Clot Prevention, #30 INJECTION STOP LOVENOX BRIDGE WHEN INR THERAPEUTIC 2-3 THANK YOU Ferrous Sulfate (Ferosul) 325 Mg (65 Mg Iron) Tablet 325 MG PO BID for anemia, #60 TAB Fluticasone Nasal Hastings (Fluticasone Nasal Hastings) 50 Mcg/Act Naspr 2 SPRAY NASAL DAILY for seasonal allergy , #1 BOTTLE 50 mcg/spray Gabapentin (Gabapentin) 100 Mg Cap 200 MG PO TID for Pain Management, #30 CAP Lisinopril (Lisinopril) 5 Mg Tab 5 MG PO DAILY for Blood Pressure Management, #30 TAB Multiple Vitamins W/ Minerals (Thera M Plus) 1 Tab 1 TAB PO BID for Nutritional Supplement, #30 TAB Warfarin (Coumadin) 5 Mg Tab 5 MG PO DAILY@1600 for Blood Clot Prevention, #30 TAB Continued Medications: Omeprazole (Omeprazole) 20 Mg Tab 20 MG PO DAILY, #30 TAB 0 Refills Pravastatin (Pravastatin) 40 Mg Tab 40 MG PO DAILY for Cholesterol Management, #30 TAB 0 Refills Kamla Bermudez MD Nov 07, 2017 12:49
[2017-11-07 15:58] VITALS: BP 110/53; PULSE 63; RESP 20; TEMP 98.1; O2SAT 98
[2017-11-07] MEDS: WARFARIN SOD 5 MG TAB PO SCH (16:08)
--- NOTE | 2017-11-07 17:04 | HHI.NSPN ---
History Chief Complaint: Right leg and foot pain Interval History 10/27: 62-year-old female with history of lumbar stenosis underwent L4 5 decompressive hemilaminectomy, bilateral foraminotomy, repair of small dural leak left L4 5 level with DuraGen and fibrin glue on 09/24/2017. She was discharged in stable condition with home health care. She presented to the emergency room 10/01/17 with some leaking from the incision site. No fevers reported. She was kept at flat bedrest. Due to persistent CSF leak, she underwent irrigation and debridement and drainage of abscess at the L4 5 level on 2017. She was seen by infectious disease, , started on vancomycin with initial cultures indicating MRSA. Vancomycin was initially discontinued and changed to daptomycin due to acute renal failure. She was placed back on bed rest postoperatively, started out of bed with therapy from 10/12/2017 until 10/16/2017 when she was noted to have persistent fluid leakage at the incision site. She has been back at bed rest since then. An MRI on 10/15/2017 revealed some fluid tracking up along the posterior spinal canal from L4 5 laminectomy site to the thoracolumbar junction. Approximately 3 x 12 cm fluid collection in the mid to upper lumbar midline extending towards the skin surface. The patient was briefly examined by the undersigned initially on 10/24/2017 at which time she was noted to have very minimal drainage from the upper aspect of the midline lumbar incision was otherwise dry and intact incision, intact lower extremity motor function, and MRI reviewed. Findings were discussed with orthopedic surgery as well as radiology with plans for follow-up MRI scan in order to determine any progression of the fluid collection within the spinal canal prior to consideration of lumbar subarachnoid drain. Follow-up MRI of the lumbar spine 10/25/2017 has been completed and reveals resolution of the probable intradural fluid collection, with moderate persistent soft tissue fluid collection in the mid to upper lumbar region. Ms. Malloy complains of intermittent moderate low back pain. She has mild numbness in the lower extremities which she states is relatively chronic. No significant radiating pain in the lower extremities. No complaining of bowel or bladder dysfunction. No complaining of fevers or chills. No significant headache. No blurred vision or diplopia. 10/28: She has not noted any drainage from the incision over the past day. Her dressing was changed per nursing staff just prior to my visit today and was relatively dry without significant drainage. 10/29: The patient went for a lumbar subarachnoid drain placement by Interventional Radiology this morning. When seen this evening the patient is awake and watching TV. She has no complaint of headache but does say her legs are throbbing. The dressing is intact to drain insertion site but it is rolled down at the top slightly. The back was nontender to palpation. She weakly moved the lower extremities. There is no change in her chronic numbness to the lower extremities. 10/30: The patient is asleep when seen this afternoon. She does say she has a slight headache. She denied any back or extremity pain or any change in her chronic extremity numbness. Her assessment is essentially unchanged from yesterday. The patient does state that she does not feel any weakness to the extremities and that she is moving them normally for her. Nursing reports that the drain was clamped until 0300 this morning. Then from 0300 until the morning shift the patient drain 80 mL. Nursing reported that the patient had a severe headache and she raised the drain and then clamped it. Since then the patient has put out 5 mL at 1400. Nursing reports that the patient is frequently raising and lowering her bed without the knowledge of the Nursing staff affecting how the drain is working. 10/31: When seen this afternoon the patient is awake and alert talking with the Appraisal Technician. She has no complaints when seen. There is no change in her neuro exam. The dressing to the lumbar drain had been rolled up from the insertion site and the surgical incision dressing was off. The bedding under her was wet with yellow drainage. 11/01: Pt awake and alert. States returned from radiology special procedures where the lumbar spinal drain was removed. 11/03: Patient with history of CSF leak post lumbar surgery. Lumbar drainage was attempted without success. Patient has continued to leak. Previously evaluated by neurosurgery 11/05: She has not noted any drainage from the incision over the past day. Her dressing was changed per nursing staff just prior to my visit today. She has no complaint of headache. 11/07: The patient is awake and alert in the bed watching TV. She denies any headache or dizziness. She said she had some pain to the right leg and foot when Physical Therapy got her up today. She ambulated only a few feet. She did say she started to get a headache but it resolved when she laid back down. She denies any numbness or tingling to the lower extremities or any pain to the left lower. There is no change in her sensorimotor exam. The dressing to the lumbar surgical incision has minimal serous drainage to it, and the dressing is dry. There is no active drainage noted from the incision. Exam Results 11/05/17 11/05/17 11/06/17 11/06/17 11/07/17 11/07/17 06:00 18:00 06:00 18:00 06:00 18:00 Intake Total 680 ml 100 ml 100 ml Output Total 1300 ml Balance -620 ml 100 ml 100 ml Intake Oral 480 ml IV Total 200 ml 100 ml 100 ml Output Urine Total 1300 ml # Voids 2 3 # Bowel Movements 0 Vital Signs Date Time Temp Pulse Resp B/P (MAP) Pulse Ox O2 Delivery O2 Flow Rate FiO2 11/07/17 15:58 98.1 63 20 110/53 (72) 98 11/07/17 12:57 16 11/07/17 11:35 98.6 58 20 132/60 (84) 97 11/07/17 07:54 98.3 55 20 116/55 (75) 95 11/07/17 07:00 95 Room Air 11/07/17 06:15 98.9 59 18 139/63 (88) 99 11/07/17 00:00 98.7 60 18 130/74 (92) 99 11/06/17 21:00 98.1 67 18 122/82 (95) 11/06/17 20:40 97 Room Air 11/06/17 16:18 98.3 58 20 123/59 (80) 97 11/06/17 11:31 98.4 58 20 122/60 (80) 96 11/06/17 07:50 98.9 64 21 135/71 (92) 99 11/06/17 07:07 Room Air 11/06/17 06:00 98.0 66 18 149/66 (93) 95 11/06/17 00:04 98.5 71 18 136/70 (92) 97 11/05/17 20:51 96 Room Air 11/05/17 20:41 98.0 60 18 128/80 (96) 96 11/05/17 16:00 98.6 86 19 145/78 (100) 94 11/05/17 12:07 98.0 71 18 134/61 (85) 94 11/05/17 10:30 Room Air 11/05/17 07:50 98.7 69 18 138/76 (96) 94 11/05/17 04:00 98.2 67 18 109/56 (73) 96 11/05/17 00:00 98.3 67 18 103/52 (69) 96 11/04/17 20:00 98.0 70 18 105/52 (69) 95 11/04/17 20:00 95 Room Air Physical Examination GENERAL: Patient awake & alert in bed watching TV. Her affect is flat. She readily interacts. She is not in any apparent distress. HEENT: Normocephalic, atraumatic. MUSCULOSKELETAL: Moves all extremities spontaneously & purposefully. Lumbar surgical incision NTTP, approximated w/sutures, dressing loose w/minimal dried serous drainage noted, no active drainage evident, no erythema or streaking noted. NEUROLOGICAL: AAOx3. Speech clear & appropriate. Follows simple command w/o difficulty. Sensation decreased to distal BLE chronically w/o change, o/w intact to light touch to the extremities. Moves all extremities weakly but is normal for the patient. Lab, Micro, Other Results Laboratory Tests Test 11/06/17 07:24 Prothrombin Time 13.1 SEC Prothromb Time International Ratio 1.3 RATIO Medical Decision Making Impression and Plan Impression: 1. Postoperative CSF leak. 11/05: Per report, the patient had some leakage for a couple of days after the drain was removed on approximately 11/01/17, particularly when out of bed over the weekend, but no further leakage noted the past couple of days with presumed bed rest Patient is doing well. No evident CSF leak at the lumbar surgical incision. No change in neuro exam. Bradycardia. Lumbar subarachnoid drain placement by Interventional Radiology, d/c' d . Plan: Primary management per Hospitalist. Mobilise patient w/assistance. Physical & Occupational Therapy eval & tx. Monitor for CSF leakage from the lumbar surgical incision. Jj Thorpe Nov 07, 2017 17:04
[2017-11-07] MEDS: MAGNESIUM HYDROXIDE SUSP 30 ML CUP PO PRN (17:18)
[2017-11-07] MEDS: BISACODYL 10 MG SUPP RECTAL PRN (18:16)
[2017-11-07 20:00] VITALS: BP 139/64; PULSE 71; RESP 18; TEMP 97.9; O2SAT 93
[2017-11-07] MEDS: ZOLPIDEM TARTRATE 5 MG TAB PO PRN (20:41)
[2017-11-08] VITALS: BP 127/51; PULSE 84; RESP 18; TEMP 98; O2SAT 97
[2017-11-08] MEDS: DEXTROSE 5%-LACTATED RING INJ 1,000 ML IV SCH ×2 (01:29→22:39)
[2017-11-08] MEDS: MORPHINE SULFATE 4 MG/ML INJ IV PUSH PRN ×6 (02:59→20:41)
[2017-11-08 04:00] VITALS: BP 114/60; PULSE 62; RESP 18; TEMP 97.9; O2SAT 97
[2017-11-08] MEDS: cefTRIAXone INJ 1,000 MG in SODIUM CHLORIDE 0.9% INJ 100 ML IV SCH ×2 (06:37→17:36)
[2017-11-08 07:12] LABS: BASOPHIL % 0.4 % (0.0-2.0); EOSINOPHIL # 0.2 TH/MM3 (0-0.4); EOSINOPHIL % 2.1 % (0.0-4.0); HEMATOCRIT 29.2 % (35.0-46.0); HEMOGLOBIN 9.4 GM/DL (11.6-15.3); LYMPH % 22.3 % (9.0-44.0); LYMPHOCYTE # 1.6 TH/MM3 (1.0-4.8); MEAN CELL VOLUME 88.7 FL (80.0-100.0); MEAN CORPUSCULAR HEMOGLOBIN 28.4 PG (27.0-34.0); MEAN PLATELET VOLUME 7.8 FL (7.0-11.0); MONOCYTE # 0.5 TH/MM3 (0-0.9); NEUT % 68.2 % (16.0-70.0); PLATELET COUNT 296 TH/MM3 (150-450); RED CELL DISTRIBUTION WIDTH 16.7 % (11.6-17.2); WHITE BLOOD COUNT 7.4 TH/MM3 (4.0-11.0)
[2017-11-08 07:22] LABS: INTERNATIONAL NORMALIZED RATIO 1.4 RATIO; PROTHROMBIN TIME - PATIENT 13.9 SEC (9.8-11.6)
[2017-11-08 07:50] LABS: BICARBONATE 27.2 MEQ/L (21.0-32.0); CALCIUM 9.5 MG/DL (8.5-10.1); CREATININE 1.04 MG/DL (0.50-1.00)
[2017-11-08] MEDS: amLODIPine BESYLATE 5 MG TAB PO SCH (08:53)
[2017-11-08] MEDS: DAPTOmycin INJ 900 MG in SODIUM CHLORIDE 0.9% INJ 100 ML IV SCH (08:53)
[2017-11-08] MEDS: MULTIVITAMINS/MINERALS THERAPEUTIC TAB PO SCH ×2 (08:53→20:35)
[2017-11-08] MEDS: DOCUSATE SODIUM 100 MG CAP PO SCH ×2 (08:53→20:35)
[2017-11-08] MEDS: FERROUS SULFATE 325 MG (65 MG ELEMENTAL IRON) TAB PO SCH ×2 (08:53→20:35)
[2017-11-08] MEDS: GABAPENTIN 100 MG CAP PO SCH ×3 (08:53→17:36)
[2017-11-08] MEDS: PANTOPRAZOLE SOD 20 MG DELAYED RELEASE TAB PO SCH (08:53)
[2017-11-08] MEDS: FLUTICASONE PROPIONATE 50 MCG/ACT 16 GM NASAL SPRAY NASAL SCH (08:54)
[2017-11-08 09:03] VITALS: BP 103/54; PULSE 63; RESP 17; TEMP 98.2; O2SAT 95
[2017-11-08 11:45] VITALS: BP 103/57; PULSE 59; RESP 20; TEMP 98.5; O2SAT 95
--- NOTE | 2017-11-08 12:00 | PD.ORT.PN ---
Subjective Subjective Remarks Headache and CSF leak stopped 5 days ago. No c/o leg pain today Patient previously developed drainage from lumbar spine since 10/31 lumbar drain was discontinued 11/01 by I.R. Objective Vitals Vital Signs Date Time Temp Pulse Resp B/P (MAP) Pulse Ox O2 Delivery O2 Flow Rate FiO2 11/08/17 11:45 98.5 59 20 103/57 (72) 95 11/08/17 09:03 98.2 63 17 103/54 (70) 95 11/08/17 04:00 97.9 62 18 114/60 (78) 97 11/08/17 00:00 98.0 84 18 127/51 (76) 97 11/07/17 20:30 Room Air 11/07/17 20:00 97.9 71 18 139/64 (89) 93 11/07/17 17:28 16 11/07/17 15:58 98.1 63 20 110/53 (72) 98 I/O 11/07/17 11/07/17 11/07/17 11/08/17 11/08/17 11/08/17 07:00 15:00 23:00 07:00 15:00 23:00 Intake Total 720 ml Output Total 600 ml Balance 120 ml Intake Oral 720 ml Output Urine Total 600 ml # Voids 3 Result Diagram: 11/08/17 0642 11/08/17 0642 Other Results Laboratory Tests Test 11/08/17 06:42 Prothromb Time International Ratio 1.4 RATIO Prothrombin Time 13.9 SEC (9.8-11.6) Objective Remarks Lumbar dressing is dry, no drainage, wound healing well, all sutures removed 2 days ago motor +5/5 to LE Neurologically no focal deficit. Assessment & Plan Assessment and Plan Patient was evaluated by therapy yesterday, did well with no headaches and no drainage Discharge planning for [facility] inpatient rehab Continue antibiotics per I.D. ; Kleb. pneumonia cultured in CSF,D/W Dr Reece of [place],he is going to treat medically; vanco was stopped due to acute renal failure and cubicin was started, nephrology following Coumadin DVT prop Patient unable to tolerate Ensure, Await Dietary consult, eval for assistance and management of malnutrition. Albumin 2.9 Medical team evaluating and treating anemia and malnutrition Dylan Martin MD Nov 08, 2017 12:00
[2017-11-08] MEDS: WARFARIN SOD 5 MG TAB PO SCH (15:58)
--- NOTE | 2017-11-08 16:13 | HHI.PR ---
Subjective Remarks Patient in bed feels tired and she appears deconditioned. No leak form CSF was at the margin of the bed yesterday with PT. Plan to walk with PT today. No fever or chills. No n/v/d/c. Denies chest pain or sob. Pain in his back controlled by meds. Objective Vitals Vital Signs Date Time Temp Pulse Resp B/P (MAP) Pulse Ox O2 Delivery O2 Flow Rate FiO2 11/08/17 11:45 98.5 59 20 103/57 (72) 95 11/08/17 09:03 98.2 63 17 103/54 (70) 95 11/08/17 04:00 97.9 62 18 114/60 (78) 97 11/08/17 00:00 98.0 84 18 127/51 (76) 97 11/07/17 20:30 Room Air 11/07/17 20:00 97.9 71 18 139/64 (89) 93 11/07/17 17:28 16 I/O 11/07/17 11/07/17 11/07/17 11/08/17 11/08/17 11/08/17 07:00 15:00 23:00 07:00 15:00 23:00 Intake Total 720 ml Output Total 600 ml Balance 120 ml Intake Oral 720 ml Output Urine Total 600 ml # Voids 3 Result Diagram: 11/08/17 0642 11/08/17 0642 Imaging Last Impressions Lumbar Puncture 11/01/17 0000 Signed Impressions: Service Date/Time: October 15:52 - CONCLUSION: 1. Lumbar drain catheter has been displaced to the L4 level and therefore was removed. The Findings were personally discussed with Drs. Wadsworth and Mario. Foreign Blancas MD Lumbar Puncture Fluoroscopy 10/29/17 0000 Signed Impressions: Service Date/Time: Sunday, October 29, 2017 09:12 - CONCLUSION: Uncomplicated lumbar drain placement as above. Foreign Blancas MD Lumbar Spine MRI 10/25/17 0000 Signed Impressions: Service Date/Time: October 13:20 - CONCLUSION: 1. Persistent fluid collection extending from the laminectomy defect at L4-5 into the subcutaneous tissues in the midline of the back measures 4.8 cm AP x 6.8 cm TRV x 9.7 cm SAG. 2. Moderate spinal stenosis at L4-5 and mild spinal stenosis at L3-4 and L5-S1. 3. Moderate bilateral foraminal narrowing at L4-5 and L5-S1 and moderate right neural foraminal narrowing at L3-4. 4. Resolution of the previously noted CSF collection in the posterior spinal canal extending from T12 through L2. 5. Grade I anterolisthesis of L4 in relation to L5. 6. Degenerative disc disease L3-4, L4-5 and L5-S1. 7. Facet joint hypertrophy bilaterally from L3 through L5. Gio Verduzco MD Venous Access Device Injection 10/23/17 0000 Signed Impressions: Service Date/Time: Monday, October 23, 2017 11:57 - CONCLUSION: 1. The catheter tip port is at the level of the right atria. 2. The patient has complete central venous occlusion. 3. Please see above. Mati Posada MD Venogram 10/23/17 0000 Signed Impressions: Service Date/Time: Monday, October 23, 2017 11:57 - CONCLUSION: 1. The patient has complete fibrotic central venous occlusion and is not a candidate for [id number] placement in the upper chest. 2. The existing port which is in an appropriate location and can be used for infusion of medications or other indicated products. 3. The existing port was vigorously flushed with 20 cc of saline following this using a slow, deliberate technique blood could be withdrawn if a 3 cc syringe was used. Mati Posada MD Foreign Body Removal 10/19/17 0000 Signed Impressions: Service Date/Time: Thursday, October 19, 2017 10:40 - CONCLUSION: Fibrin sheath stripping of the patient's port. Dipesh Auguste Jr., MD Renal Ultrasound 10/15/17 0000 Signed Impressions: Service Date/Time: Sunday, October 15, 2017 19:52 - CONCLUSION: Image quality is less than optimal secondary to patient body habitus. However, no hydronephrosis or concerning abnormality is identified. Coel Boston MD Chest X-Ray 10/08/17 0000 Signed Impressions: Service Date/Time: Sunday, October 08, 2017 05:16 - CONCLUSION: 1. Low lung volumes with mild patchy bilateral lower lung zone airspace disease, likely atelectasis. Foreign Blancas MD Objective Remarks GENERAL: Morbidly obese, extra-wide bed SKIN: Warm and dry. Dressing on the lower back c/d/i. HEAD: Normocephalic. EYES: No scleral icterus. No injection or drainage. NECK: Supple, trachea midline. No JVD or lymphadenopathy. CARDIOVASCULAR: Regular rate and rhythm without murmurs, gallops, or rubs. RESPIRATORY: Breath sounds equal bilaterally. No accessory muscle use. GASTROINTESTINAL: Abdomen soft, non-tender, nondistended. EXTREMITIES: No cyanosis, or edema. NEUROLOGICAL: Awake, alert, and oriented x 3. Non-focal. Procedures 1. Lumbar spine irrigation and debridement, and drainage of lumbar spine abscess. 2. L4-5 decompressive laminectomy, foraminotomy, reexploration and repair of dural leak. 10/29/17 Lumbar puncture and drain placement Date of Insertion: Oct 05, 2017 A/P Problem List: (1) Abscess in epidural space of lumbar spine ICD Code: G06.1 - Intraspinal abscess and granuloma (2) Gram-positive bacteremia ICD Code: R78.81 - Bacteremia Assessment and Plan Abscess in the epidural space of lumbar spine S/p irrigation and debridement and redo laminectomy L4-5 by orthopedic surgery, bed rest recommended Wound positive for MRSA. Currently on daptomycin and cefepime per ID port removal and replacement has been attempted by IR but was not successful, patient is not candidate for port placement in the chest secondary to fibrosis Pain management with Lortab and morphine sulfate consult regarding narcotics Persistent CSF leak status LP, Subarachnoid drain removed by interventional radiology due to failure shortly after insertion, now resolving with time. Lower back drainage is nearly absent and headaches are nearly gone, improving daily The plan is to begin physical therapy tomorrow and monitor for any evidence of CSF leakage following that activity. With physical deconditioning. Consult PT/OT. Acute renal failure, Resolved Appreciate nephrology consult Will follow BUN and creatinine Staph hominis and coag negative bacteremia. Resolved Currently on Daptomycin and cefepime Appreciate infectious disease following Normochromic normocytic anemia likely secondary to infection 1 unit of packed red blood cells transfused on 10/19/17 Continue ferrous sulfate for iron deficiency anemia Stool occult blood was negative Constipation Responded poorly to p.o. options Glycerin suppository as needed Urinary incontinence Possibly due to lumbar issues Orthopedics recommends Perez Will reevaluate periodically Hypertension Continue home dose Norvasc With bilateral LE/foot pain with attempt on walking today 11/08. Will do bilat Xray foot and bilat US doppler to r/o DVT DVT prophylaxis Coumadin Discharge planning If patient can tolerate standing and walking without causing recurrence of CSF leak and she will be ready to DC to [facility] tomorrow Awaiting also for ID final recommendations for IV abx, need stop date. Left message to Dr Naqvi ID. Kamla Bermudez MD Nov 08, 2017 16:13
[2017-11-08 16:15] VITALS: BP 110/57; PULSE 62; RESP 20; TEMP 98.5; O2SAT 98
[2017-11-08] MEDS ORDERED: WARFARIN SOD 3 MG TAB PO ONE (17:00)
--- NOTE | 2017-11-08 17:11 | RADRPT ---
EXAM DATE/TIME: 11/08/2017 16:58 [facility] COMPARISON: No previous studies available for comparison. INDICATIONS : Right foot pain after standing on foot today. MEDICAL HISTORY : None. SURGICAL HISTORY : None. ENCOUNTER: Initial ACUITY: 1 day PAIN SCORE: 10/10 LOCATION: Right foot, plantar surface. FINDINGS: Two view examination of the right foot demonstrates no soft tissue swelling, dislocation, or fracture . The calcaneus is intact. There is osteopenia of the bony structures. This is multilevel spur. Ther e is an mild degenerative changes involving the midtarsal bones. CONCLUSION: Osteopenia. No acute fracture or joint dislocation. Cheikh Gray MD on November 08, 2017 at 17:09 Board Certified Radiologist. This report was verified electronically.
--- NOTE | 2017-11-08 17:12 | RADRPT ---
EXAM DATE/TIME: 11/08/2017 17:01 [facility] COMPARISON: No previous studies available for comparison. INDICATIONS : Left foot pain after standing today. MEDICAL HISTORY : None. SURGICAL HISTORY : None. ENCOUNTER: Initial ACUITY: 1 day PAIN SCORE: 10/10 LOCATION: Left foot, plantar surface. FINDINGS: Two view examination of the left foot demonstrates no soft tissue swelling, dislocation, or fracture. The calcaneus is intact. There is osteopenia of bony structures. There are some degenerative change s involving the midtarsal bones. A small heel spur.. CONCLUSION: Osteopenia. Degenerative changes involving the tarsal bones. No acute fracture or joint dislocation. Cheikh Gray MD on November 08, 2017 at 17:10 Board Certified Radiologist. This report was verified electronically.
--- NOTE | 2017-11-08 18:48 | RADRPT ---
EXAM DATE/TIME: 11/08/2017 17:44 [facility] COMPARISON: No previous studies available for comparison. EXTER[facility] COMPAR[facility] : [facility], [facility], LEFT VENOUS DOPPLER, August 29, 2016 INDICATIONS : Bilateral leg pain. MEDICAL HISTORY : Gastroesophageal reflux disease. Hypertension. Cerebrovascular accident. ulcer. Pancreatitis. Arthri tis. MRSA. SURGICAL HISTORY : Hysterectomy.Tonsillectomy. section.Right breast lump removal. Gastric bypass. Appendectomy. Cholecystectomy. Bilateral knee replacement. Right port placement. ENCOUNTER: Initial ACUITY: 1 day PAIN SCORE: 3/10 LOCATION: Bilateral legs. TECHNIQUE: Venous ultrasound of the left and right leg was performed from the inguinal ligament to the proximal calf. Real-time, color Doppler and spectral tracing, compression and augmentation techniques were us ed. FINDINGS: RIGHT LEG: There is normal compressibility of the deep venous system from the inguinal region to the proximal ca lf. No echogenic clot is seen in the lumen of the common femoral, femoral, popliteal, and posterior tibial veins. There is a normal response of the venous system to proximal and distal augmentation an d respiration. LEFT LEG: The proximal upper femoral vein is noncompressible. This is partially occlusive. Flow is still seen i n this region. The remaining aspect of the left venous system appears patent. There is a normal respo nse of the venous system to proximal and distal augmentation and respiration. CONCLUSION: 1. Nonocclusive thrombus seen in the upper left femoral vein. 2. No thrombus seen on the right. Cole Carrizales MD on November 08, 2017 at 18:44 Board Certified Radiologist. This report was verified electronically.
[2017-11-08 20:00] VITALS: BP 131/60; PULSE 71; RESP 18; TEMP 98; O2SAT 96
[2017-11-08] MEDS: ZOLPIDEM TARTRATE 5 MG TAB PO PRN (20:35)
[2017-11-08] MEDS: ENOXAPARIN SODIUM 150 MG/ML SYRINGE SQ SCH (20:42)
[2017-11-09] VITALS: BP_SYST 117; BP_SYST 131; BP_DIAS 59; BP_DIAS 60; PULSE 69; PULSE 71; RESP 18; TEMP 98; TEMP 98.7; O2SAT 96
[2017-11-09] MEDS: MORPHINE SULFATE 4 MG/ML INJ IV PUSH PRN ×3 (00:10→08:23)
[2017-11-09 04:00] VITALS: BP 111/56; PULSE 62; RESP 18; TEMP 98; O2SAT 91
[2017-11-09] MEDS: cefTRIAXone INJ 1,000 MG in SODIUM CHLORIDE 0.9% INJ 100 ML IV SCH (05:10)
--- NOTE | 2017-11-09 07:20 | PD.ORT.PN ---
Subjective Subjective Remarks Headache and CSF leak stopped 6 days ago. No c/o leg pain today Patient previously developed drainage from lumbar spine since 10/31 lumbar drain was discontinued 11/01 by I.R. patient developed left leg pain yesterday, ultrasound showed left femoral DVT, non-occlusive, was started on lovenox yesterday Objective Vitals Vital Signs Date Time Temp Pulse Resp B/P (MAP) Pulse Ox O2 Delivery O2 Flow Rate FiO2 11/09/17 04:00 98.0 62 18 111/56 (74) 91 11/09/17 00:00 98.7 69 18 117/59 (78) 96 11/08/17 20:00 98.0 71 18 131/60 (83) 96 11/08/17 16:15 98.5 62 20 110/57 (74) 98 11/08/17 11:45 98.5 59 20 103/57 (72) 95 11/08/17 09:03 98.2 63 17 103/54 (70) 95 I/O 11/08/17 11/08/17 11/08/17 11/09/17 11/09/17 11/09/17 07:00 15:00 23:00 07:00 15:00 23:00 Intake Total 720 ml Output Total 650 ml 1000 ml Balance 70 ml -1000 ml Intake Oral 720 ml Output Urine Total 650 ml 1000 ml # Bowel Movements 0 Result Diagram: 11/08/17 0642 11/08/17 0642 Objective Remarks Lumbar dressing is dry, no drainage, wound healing well motor +5/5 to LE Neurologically no focal deficit. Assessment & Plan Assessment and Plan Patient was evaluated by therapy, did well with no headaches and no drainage Discharge planning for [facility] inpatient rehab when patient is medically cleared to get out of bed Continue antibiotics per I.D. ; Kleb. pneumonia cultured in CSF,D/W Dr Reece of [place],he is going to treat medically; vanco was stopped due to acute renal failure and cubicin was started, nephrology following Medical management of left femoral DVT, old vs new?, Patient unable to tolerate Ensure, Await Dietary consult, eval for assistance and management of malnutrition. Albumin 2.9 Medical team evaluating and treating anemia and malnutrition Dylan Martin MD Nov 09, 2017 07:20
[2017-11-09 08:00] VITALS: BP 115/65; PULSE 60; RESP 18; TEMP 98.4; O2SAT 95
[2017-11-09] MEDS: GABAPENTIN 100 MG CAP PO SCH ×3 (08:21→17:15)
[2017-11-09] MEDS: FERROUS SULFATE 325 MG (65 MG ELEMENTAL IRON) TAB PO SCH ×2 (08:21→21:56)
[2017-11-09] MEDS: ENOXAPARIN SODIUM 150 MG/ML SYRINGE SQ SCH ×2 (08:21→21:56)
[2017-11-09] MEDS: PANTOPRAZOLE SOD 20 MG DELAYED RELEASE TAB PO SCH (08:21)
[2017-11-09] MEDS: amLODIPine BESYLATE 5 MG TAB PO SCH (08:22)
[2017-11-09] MEDS: MULTIVITAMINS/MINERALS THERAPEUTIC TAB PO SCH ×2 (08:22→22:03)
[2017-11-09] MEDS: DAPTOmycin INJ 900 MG in SODIUM CHLORIDE 0.9% INJ 100 ML IV SCH (08:22)
[2017-11-09] MEDS: DOCUSATE SODIUM 100 MG CAP PO SCH ×2 (08:22→21:56)
[2017-11-09] MEDS: FLUTICASONE PROPIONATE 50 MCG/ACT 16 GM NASAL SPRAY NASAL SCH (08:23)
[2017-11-09] MEDS ORDERED: DAPT250I IV (09:07)
[2017-11-09] MEDS ORDERED: CEFT1INJ IM (09:07)
[2017-11-09] MEDS ORDERED: ENOX150P SQ (09:07)
--- NOTE | 2017-11-09 09:26 | HHI.PR ---
Subjective Remarks The patient is seen now not acute distress. He denies any chest pain or shortness of breath. Complaints of some back pain . Says she has pain in her legs when she is attempting to walk and says Lortab is not working. We did discontinue morphine. Transition to p.o. medications will give her oxycodone instead. Objective Vitals Vital Signs Date Time Temp Pulse Resp B/P (MAP) Pulse Ox O2 Delivery O2 Flow Rate FiO2 11/09/17 08:00 98.4 60 18 115/65 (82) 95 11/09/17 04:00 98.0 62 18 111/56 (74) 91 11/09/17 00:00 98.7 69 18 117/59 (78) 96 11/08/17 20:00 98.0 71 18 131/60 (83) 96 11/08/17 16:15 98.5 62 20 110/57 (74) 98 11/08/17 11:45 98.5 59 20 103/57 (72) 95 I/O 11/08/17 11/08/17 11/08/17 11/09/17 11/09/17 11/09/17 07:00 15:00 23:00 07:00 15:00 23:00 Intake Total 720 ml Output Total 650 ml 1000 ml Balance 70 ml -1000 ml Intake Oral 720 ml Output Urine Total 650 ml 1000 ml # Bowel Movements 0 Result Diagram: 11/08/17 0642 11/08/17 0642 Imaging Last Impressions Lower Extremity Ultrasound 11/08/17 0000 Signed Impressions: Service Date/Time: October 17:44 - CONCLUSION: 1. Nonocclusive thrombus seen in the upper left femoral vein. 2. No thrombus seen on the right. Cole Carrizales MD Foot X-Ray 11/08/17 0000 Signed Impressions: Service Date/Time: October 16:58 - CONCLUSION: Osteopenia. No acute fracture or joint dislocation. Cheikh Gray MD Lumbar Puncture 11/01/17 0000 Signed Impressions: Service Date/Time: October 15:52 - CONCLUSION: 1. Lumbar drain catheter has been displaced to the L4 level and therefore was removed. The Findings were personally discussed with Drs. Wadsworth and Mario. Foreign Blancas MD Lumbar Puncture Fluoroscopy 10/29/17 0000 Signed Impressions: Service Date/Time: Sunday, October 29, 2017 09:12 - CONCLUSION: Uncomplicated lumbar drain placement as above. Foreign Blancas MD Lumbar Spine MRI 10/25/17 0000 Signed Impressions: Service Date/Time: October 13:20 - CONCLUSION: 1. Persistent fluid collection extending from the laminectomy defect at L4-5 into the subcutaneous tissues in the midline of the back measures 4.8 cm AP x 6.8 cm TRV x 9.7 cm SAG. 2. Moderate spinal stenosis at L4-5 and mild spinal stenosis at L3-4 and L5-S1. 3. Moderate bilateral foraminal narrowing at L4-5 and L5-S1 and moderate right neural foraminal narrowing at L3-4. 4. Resolution of the previously noted CSF collection in the posterior spinal canal extending from T12 through L2. 5. Grade I anterolisthesis of L4 in relation to L5. 6. Degenerative disc disease L3-4, L4-5 and L5-S1. 7. Facet joint hypertrophy bilaterally from L3 through L5. Gio Verduzco MD Venous Access Device Injection 10/23/17 0000 Signed Impressions: Service Date/Time: Monday, October 23, 2017 11:57 - CONCLUSION: 1. The catheter tip port is at the level of the right atria. 2. The patient has complete central venous occlusion. 3. Please see above. Mati Posada MD Venogram 10/23/17 0000 Signed Impressions: Service Date/Time: Monday, October 23, 2017 11:57 - CONCLUSION: 1. The patient has complete fibrotic central venous occlusion and is not a candidate for Jbqlar-w-Tavk placement in the upper chest. 2. The existing port which is in an appropriate location and can be used for infusion of medications or other indicated products. 3. The existing port was vigorously flushed with 20 cc of saline following this using a slow, deliberate technique blood could be withdrawn if a 3 cc syringe was used. Mati Posada MD Foreign Body Removal 10/19/17 0000 Signed Impressions: Service Date/Time: Thursday, October 19, 2017 10:40 - CONCLUSION: Fibrin sheath stripping of the patient's port. Dipesh Auguste Jr., MD Renal Ultrasound 10/15/17 0000 Signed Impressions: Service Date/Time: Sunday, October 15, 2017 19:52 - CONCLUSION: Image quality is less than optimal secondary to patient body habitus. However, no hydronephrosis or concerning abnormality is identified. Cole Boston MD Chest X-Ray 10/08/17 0000 Signed Impressions: Service Date/Time: Sunday, October 08, 2017 05:16 - CONCLUSION: 1. Low lung volumes with mild patchy bilateral lower lung zone airspace disease, likely atelectasis. Foreign Blancas MD Objective Remarks GENERAL: Morbidly obese, extra-wide bed SKIN: Warm and dry. Dressing on the lower back c/d/i. HEAD: Normocephalic. EYES: No scleral icterus. No injection or drainage. NECK: Supple, trachea midline. No JVD or lymphadenopathy. CARDIOVASCULAR: Regular rate and rhythm without murmurs, gallops, or rubs. RESPIRATORY: Breath sounds equal bilaterally. No accessory muscle use. GASTROINTESTINAL: Abdomen soft, non-tender, nondistended. EXTREMITIES: No cyanosis, or edema. NEUROLOGICAL: Awake, alert, and oriented x 3. Non-focal. Procedures 1. Lumbar spine irrigation and debridement, and drainage of lumbar spine abscess. 2. L4-5 decompressive laminectomy, foraminotomy, reexploration and repair of dural leak. 10/29/17 Lumbar puncture and drain placement Date of Insertion: Oct 05, 2017 A/P Problem List: (1) Abscess in epidural space of lumbar spine ICD Code: G06.1 - Intraspinal abscess and granuloma (2) Gram-positive bacteremia ICD Code: R78.81 - Bacteremia Assessment and Plan Abscess in the epidural space of lumbar spine S/p irrigation and debridement and redo laminectomy L4-5 by orthopedic surgery, bed rest recommended Wound positive for MRSA. Currently on daptomycin and cefepime per ID Port removal and replacement has been attempted by IR but was not successful, patient is not a candidate for port placement in the chest secondary to fibrosis Pain management . DC morphine . Says marlee is not working and wants different one . Will start angélica per pain scale Persistent CSF leak status LP, Subarachnoid drain removed by interventional radiology due to failure shortly after insertion, now resolving with time. Lower back drainage is nearly absent and headaches are nearly gone, improving daily The plan is to begin physical therapy and monitor for any evidence of CSF leakage following that activity. With physical deconditioning. Consult PT/OT. With bilateral LE/foot pain with attempt on walking 11/08. Bilat Xray foot no fracture. Bilat US doppler to r/o DVT reviewed and patient with left leg DVT nonocclusive thrombus. INR is subtherapeutic, started bridge with Lovenox 140 mg sq bid. Acute renal failure, Resolved Appreciate nephrology consult Will follow BUN and creatinine Staph hominis and coag negative bacteremia. Resolved Currently on Daptomycin and cefepime Appreciate infectious disease following Normochromic normocytic anemia likely secondary to infection 1 unit of packed red blood cells transfused on 10/19/17 Continue ferrous sulfate for iron deficiency anemia Stool occult blood was negative Constipation Responded poorly to p.o. options Glycerin suppository as needed Urinary incontinence Possibly due to lumbar issues Orthopedics recommends Perez Will reevaluate periodically Hypertension Continue home dose Norvasc DVT prophylaxis Coumadin Discharge planning If patient can tolerate standing and walking without causing recurrence of CSF leak and [facility] Spoke with Dr Naqvi appreciate recommendations. Kamla Bermudez MD Nov 09, 2017 09:26
[2017-11-09] MEDS ORDERED: ACETAMINOPHEN/HYDROcodone 325 MG/5 MG TAB PO PRN (09:30)
[2017-11-09] MEDS ORDERED: NALOXONE HCL 0.4 MG/ML AMP IV PUSH PRN (09:30)
[2017-11-09 10:03] LABS: INTERNATIONAL NORMALIZED RATIO 1.6 RATIO
[2017-11-09 12:00] VITALS: BP 135/61; PULSE 94; RESP 18; TEMP 98.5; O2SAT 95
[2017-11-09] MEDS: ACETAMINOPHEN/HYDROcodone 325 MG/10 MG TAB PO PRN ×2 (13:17→17:14)
[2017-11-09 16:00] VITALS: BP 128/79; PULSE 86; RESP 18; TEMP 98.4; O2SAT 95
[2017-11-09] MEDS: WARFARIN SOD 4 MG TAB PO SCH (17:14)
[2017-11-09] MEDS: cefTRIAXone INJ 2,000 MG in SODIUM CHLORIDE 0.9% INJ 100 ML IV SCH (17:19)
[2017-11-09] MEDS: DEXTROSE 5%-LACTATED RING INJ 1,000 ML IV SCH (18:39)
--- NOTE | 2017-11-09 19:06 | HHI.IDPN ---
Subjective Subjective Remarks ID x cover for D rDonfraid chart was reviewed Patient notes severe headache. Denies pain in the back. Increase clear fluid drainage from the back incision. Lumbar subarachnoid catheter was removed yesterday. Denies nausea vomiting. Afebrile. 61-year-old black female who recently underwent lumbar spine surgery. The patient was treated for lumbar spine stenosis. She underwent L4-L5 bilateral decompressive hemilaminectomy along with decompression of nerve root and left side L4-L5 repair of dural leak. The patient was discharged from the hospital on September 26. She was taken to surgery and underwent incision and drainage of an lumbar abscess. Antibiotics daptomycin CFTX Past Medical History 1. Dyslipidemia, 2. Status post laminectomy for spinal stenosis 3. Appendectomy, 4. Gastric bypass 5. Knee replacement 6. Gastroesophageal reflux disease, 7. Hysterectomy. 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 Vital Signs Date Time Temp Pulse Resp B/P (MAP) Pulse Ox O2 Delivery O2 Flow Rate FiO2 11/09/17 16:00 98.4 86 18 128/79 (95) 95 11/09/17 12:00 98.5 94 18 135/61 (85) 95 11/09/17 08:00 98.4 60 18 115/65 (82) 95 11/09/17 04:00 98.0 62 18 111/56 (74) 91 11/09/17 00:00 98.7 69 18 117/59 (78) 96 11/08/17 20:00 98.0 71 18 131/60 (83) 96 11/09/17 11/09/17 11/10/17 15:00 23:00 07:00 Intake Total 560 ml Output Total 500 ml Balance 60 ml Intake Oral 560 ml Output Urine Total 500 ml # Bowel Movements 0 . Laboratory Tests Test 11/08/17 06:42 White Blood Count 7.4 TH/MM3 Red Blood Count 3.30 MIL/MM3 Hemoglobin 9.4 GM/DL Hematocrit 29.2 % Mean Corpuscular Volume 88.7 FL Mean Corpuscular Hemoglobin 28.4 PG Mean Corpuscular Hemoglobin Concent 32.0 % Red Cell Distribution Width 16.7 % Platelet Count 296 TH/MM3 Mean Platelet Volume 7.8 FL Neutrophils (%) (Auto) 68.2 % Lymphocytes (%) (Auto) 22.3 % Monocytes (%) (Auto) 7.0 % Eosinophils (%) (Auto) 2.1 % Basophils (%) (Auto) 0.4 % Neutrophils # (Auto) 5.0 TH/MM3 Lymphocytes # (Auto) 1.6 TH/MM3 Monocytes # (Auto) 0.5 TH/MM3 Eosinophils # (Auto) 0.2 TH/MM3 Basophils # (Auto) 0.0 TH/MM3 CBC Comment DIFF FINAL Differential Comment Laboratory Tests Test 11/08/17 06:42 Blood Urea Nitrogen 25 MG/DL Creatinine 1.04 MG/DL Random Glucose 106 MG/DL Calcium Level 9.5 MG/DL Sodium Level 137 MEQ/L Potassium Level 4.0 MEQ/L Chloride Level 102 MEQ/L Carbon Dioxide Level 27.2 MEQ/L Anion Gap 8 MEQ/L Estimat Glomerular Filtration Rate 65 ML/MIN Imaging Last Impressions Lower Extremity Ultrasound 11/08/17 0000 Signed Impressions: Service Date/Time: October 17:44 - CONCLUSION: 1. Nonocclusive thrombus seen in the upper left femoral vein. 2. No thrombus seen on the right. Cole Carrizales MD Foot X-Ray 11/08/17 0000 Signed Impressions: Service Date/Time: October 16:58 - CONCLUSION: Osteopenia. No acute fracture or joint dislocation. Cheikh Gray MD Lumbar Puncture 11/01/17 0000 Signed Impressions: Service Date/Time: October 15:52 - CONCLUSION: 1. Lumbar drain catheter has been displaced to the L4 level and therefore was removed. The Findings were personally discussed with Drs. Wadsworth and Mario. Foreign Blancas MD Lumbar Puncture Fluoroscopy 10/29/17 0000 Signed Impressions: Service Date/Time: Sunday, October 29, 2017 09:12 - CONCLUSION: Uncomplicated lumbar drain placement as above. Foreign Blancas MD Lumbar Spine MRI 10/25/17 0000 Signed Impressions: Service Date/Time: October 13:20 - CONCLUSION: 1. Persistent fluid collection extending from the laminectomy defect at L4-5 into the subcutaneous tissues in the midline of the back measures 4.8 cm AP x 6.8 cm TRV x 9.7 cm SAG. 2. Moderate spinal stenosis at L4-5 and mild spinal stenosis at L3-4 and L5-S1. 3. Moderate bilateral foraminal narrowing at L4-5 and L5-S1 and moderate right neural foraminal narrowing at L3-4. 4. Resolution of the previously noted CSF collection in the posterior spinal canal extending from T12 through L2. 5. Grade I anterolisthesis of L4 in relation to L5. 6. Degenerative disc disease L3-4, L4-5 and L5-S1. 7. Facet joint hypertrophy bilaterally from L3 through L5. Gio Verduzco MD Venous Access Device Injection 10/23/17 0000 Signed Impressions: Service Date/Time: Monday, October 23, 2017 11:57 - CONCLUSION: 1. The catheter tip port is at the level of the right atria. 2. The patient has complete central venous occlusion. 3. Please see above. Mati Posada MD Venogram 10/23/17 0000 Signed Impressions: Service Date/Time: Monday, October 23, 2017 11:57 - CONCLUSION: 1. The patient has complete fibrotic central venous occlusion and is not a candidate for Bbvpea-g-Vqzp placement in the upper chest. 2. The existing port which is in an appropriate location and can be used for infusion of medications or other indicated products. 3. The existing port was vigorously flushed with 20 cc of saline following this using a slow, deliberate technique blood could be withdrawn if a 3 cc syringe was used. Mati Posada MD Foreign Body Removal 10/19/17 0000 Signed Impressions: Service Date/Time: Thursday, October 19, 2017 10:40 - CONCLUSION: Fibrin sheath stripping of the patient's port. Dipesh Auguste Jr., MD Renal Ultrasound 10/15/17 0000 Signed Impressions: Service Date/Time: Sunday, October 15, 2017 19:52 - CONCLUSION: Image quality is less than optimal secondary to patient body habitus. However, no hydronephrosis or concerning abnormality is identified. Cole Boston MD Chest X-Ray 10/08/17 0000 Signed Impressions: Service Date/Time: Sunday, October 08, 2017 05:16 - CONCLUSION: 1. Low lung volumes with mild patchy bilateral lower lung zone airspace disease, likely atelectasis. Foreign Blancas MD Physical Exam GENERAL: Awake and alert. HEENT: Extraocular movements grossly intact. No icterus. Oropharynx moist mucosa without lesions. NECK: Supple without adenopathy. LUNGS: Clear breath sounds HEART: Regular S1, S2 without murmurs, rubs or gallops. ABDOMEN: Bowel sounds present, soft, no tenderness. BACK: Lumbar incision seem clean, has some serous drainage and healing EXTREMITIES: No clubbing or cyanosis or edema. SKIN: No rash. NEUROLOGIC: No gross focal findings. PSYCHIATRIC: Calm and cooperative. Assessment & Plan Remarks IMPRESSION 1. Lumbar abscess. MRSA. Post drainage. Post laminectomy and repair of epidural tear. MRI showed fluid collection extending from the laminectomy defect into the subcutaneous tissues. 2. Postoperative CSF leak. Status post placement of subarachnoid CSF drain. CSF cultures grew klebsiella. Patient continues to have drainage from the back incision. 3. Acute kidney disease secondary to vancomycin. Kidney function improving. RECOMMENDATIONS 1. Continue Daptomycin. monitor CKs 2. Continue ceftriaxone, increase dose to 2 gm q 12 3. Monitor temperature. 4. Monitor white blood cell count. 5. Monitor clinical status. Ninfa Tariq MD Nov 09, 2017 19:06
[2017-11-09] MEDS ORDERED: HYDROmorphone HCL 2 MG TAB PO PRN (19:30)
[2017-11-09 20:00] VITALS: BP 126/58; PULSE 57; RESP 18; TEMP 98.5; O2SAT 95
[2017-11-09] MEDS: SODIUM CHLORIDE 0.9% FLUSH 10 ML FLUSH IV FLUSH PRN (21:55)
[2017-11-09] MEDS: ZOLPIDEM TARTRATE 5 MG TAB PO PRN (21:57)
[2017-11-10] VITALS: BP 129/59; PULSE 57; RESP 18; TEMP 98.2; O2SAT 97
[2017-11-10 04:00] VITALS: BP 143/72; PULSE 55; RESP 18; TEMP 98.2; O2SAT 97
[2017-11-10] MEDS: cefTRIAXone INJ 2,000 MG in SODIUM CHLORIDE 0.9% INJ 100 ML IV SCH (07:36)
[2017-11-10 07:42] VITALS: BP 159/68; PULSE 54; RESP 20; TEMP 98.5; O2SAT 98
--- NOTE | 2017-11-10 08:43 | HHI.PR ---
Subjective Remarks The patient is in bed. No CSF leakage from the wound. She is not ambulating much. Pain is better controlled. No nausea vomiting no diarrhea or constipation. Has pain in her feet. Objective Vitals Vital Signs Date Time Temp Pulse Resp B/P (MAP) Pulse Ox O2 Delivery O2 Flow Rate FiO2 11/10/17 07:42 98.5 54 20 159/68 (98) 98 11/10/17 04:00 98.2 55 18 143/72 (95) 97 11/10/17 00:00 98.2 57 18 129/59 (82) 97 11/09/17 20:00 98.5 57 18 126/58 (80) 95 11/09/17 16:00 98.4 86 18 128/79 (95) 95 11/09/17 12:00 98.5 94 18 135/61 (85) 95 I/O 11/09/17 11/09/17 11/09/17 11/10/17 11/10/17 11/10/17 07:00 15:00 23:00 07:00 15:00 23:00 Intake Total 560 ml Output Total 1000 ml 500 ml 2650 ml Balance -1000 ml 60 ml -2650 ml Intake Oral 560 ml Output Urine Total 1000 ml 500 ml 2650 ml # Bowel Movements 0 0 Result Diagram: 11/08/17 0642 11/08/17 0642 Imaging Last Impressions Lower Extremity Ultrasound 11/08/17 0000 Signed Impressions: Service Date/Time: October 17:44 - CONCLUSION: 1. Nonocclusive thrombus seen in the upper left femoral vein. 2. No thrombus seen on the right. Cole Carrizales MD Foot X-Ray 11/08/17 0000 Signed Impressions: Service Date/Time: October 16:58 - CONCLUSION: Osteopenia. No acute fracture or joint dislocation. Cheikh Gray MD Lumbar Puncture 11/01/17 0000 Signed Impressions: Service Date/Time: October 15:52 - CONCLUSION: 1. Lumbar drain catheter has been displaced to the L4 level and therefore was removed. The Findings were personally discussed with Drs. Wadsworth and Mario. Foreign Blancas MD Lumbar Puncture Fluoroscopy 10/29/17 0000 Signed Impressions: Service Date/Time: Sunday, October 29, 2017 09:12 - CONCLUSION: Uncomplicated lumbar drain placement as above. Foreign Blancas MD Lumbar Spine MRI 10/25/17 0000 Signed Impressions: Service Date/Time: October 13:20 - CONCLUSION: 1. Persistent fluid collection extending from the laminectomy defect at L4-5 into the subcutaneous tissues in the midline of the back measures 4.8 cm AP x 6.8 cm TRV x 9.7 cm SAG. 2. Moderate spinal stenosis at L4-5 and mild spinal stenosis at L3-4 and L5-S1. 3. Moderate bilateral foraminal narrowing at L4-5 and L5-S1 and moderate right neural foraminal narrowing at L3-4. 4. Resolution of the previously noted CSF collection in the posterior spinal canal extending from T12 through L2. 5. Grade I anterolisthesis of L4 in relation to L5. 6. Degenerative disc disease L3-4, L4-5 and L5-S1. 7. Facet joint hypertrophy bilaterally from L3 through L5. Gio Verduzco MD Venous Access Device Injection 10/23/17 0000 Signed Impressions: Service Date/Time: Monday, October 23, 2017 11:57 - CONCLUSION: 1. The catheter tip port is at the level of the right atria. 2. The patient has complete central venous occlusion. 3. Please see above. Mati Posada MD Venogram 10/23/17 0000 Signed Impressions: Service Date/Time: Monday, October 23, 2017 11:57 - CONCLUSION: 1. The patient has complete fibrotic central venous occlusion and is not a candidate for Wiwgzs-q-Digr placement in the upper chest. 2. The existing port which is in an appropriate location and can be used for infusion of medications or other indicated products. 3. The existing port was vigorously flushed with 20 cc of saline following this using a slow, deliberate technique blood could be withdrawn if a 3 cc syringe was used. Mati Posada MD Foreign Body Removal 10/19/17 0000 Signed Impressions: Service Date/Time: Thursday, October 19, 2017 10:40 - CONCLUSION: Fibrin sheath stripping of the patient's port. Dipesh Auguste Jr., MD Renal Ultrasound 10/15/17 0000 Signed Impressions: Service Date/Time: Sunday, October 15, 2017 19:52 - CONCLUSION: Image quality is less than optimal secondary to patient body habitus. However, no hydronephrosis or concerning abnormality is identified. Cole Boston MD Chest X-Ray 10/08/17 0000 Signed Impressions: Service Date/Time: Sunday, October 08, 2017 05:16 - CONCLUSION: 1. Low lung volumes with mild patchy bilateral lower lung zone airspace disease, likely atelectasis. Foreign Blancas MD Objective Remarks GENERAL: Morbidly obese, extra-wide bed SKIN: Warm and dry. Dressing on the lower back c/d/i. HEAD: Normocephalic. EYES: No scleral icterus. No injection or drainage. NECK: Supple, trachea midline. No JVD or lymphadenopathy. CARDIOVASCULAR: Regular rate and rhythm without murmurs, gallops, or rubs. RESPIRATORY: Breath sounds equal bilaterally. No accessory muscle use. GASTROINTESTINAL: Abdomen soft, non-tender, nondistended. EXTREMITIES: No cyanosis, or edema. NEUROLOGICAL: Awake, alert, and oriented x 3. Non-focal. Procedures 1. Lumbar spine irrigation and debridement, and drainage of lumbar spine abscess. 2. L4-5 decompressive laminectomy, foraminotomy, reexploration and repair of dural leak. 10/29/17 Lumbar puncture and drain placement Date of Insertion: Oct 05, 2017 A/P Problem List: (1) Abscess in epidural space of lumbar spine ICD Code: G06.1 - Intraspinal abscess and granuloma Status: Chronic (2) Gram-positive bacteremia ICD Code: R78.81 - Bacteremia Status: Acute Assessment and Plan Abscess in the epidural space of lumbar spine S/p irrigation and debridement and redo laminectomy L4-5 by orthopedic surgery, bed rest recommended Wound positive for MRSA. Currently on daptomycin and cefepime per ID Port removal and replacement has been attempted by IR but was not successful, patient is not a candidate for port placement in the chest secondary to fibrosis Pain management . DC morphine . Says marlee is not working and wants different one . Will start angélica per pain scale Persistent CSF leak status LP, Subarachnoid drain removed by interventional radiology due to failure shortly after insertion, now resolving with time. Lower back drainage is nearly absent and headaches are nearly gone, improving daily The plan is to begin physical therapy and monitor for any evidence of CSF leakage following that activity. With physical deconditioning. Consult PT/OT. With bilateral LE/foot pain with attempt on walking 11/08. Bilat Xray foot no fracture. Bilat US doppler to r/o DVT reviewed and patient with left leg DVT nonocclusive thrombus. INR is subtherapeutic, started bridge with Lovenox 140 mg sq bid. Acute renal failure, Resolved Appreciate nephrology consult Will follow BUN and creatinine Staph hominis and coag negative bacteremia. Resolved Currently on Daptomycin and cefepime Appreciate infectious disease following Normochromic normocytic anemia likely secondary to infection 1 unit of packed red blood cells transfused on 10/19/17 Continue ferrous sulfate for iron deficiency anemia Stool occult blood was negative Constipation Responded poorly to p.o. options Glycerin suppository as needed Urinary incontinence Possibly due to lumbar issues Orthopedics recommends Perez Will reevaluate periodically Hypertension Continue home dose Norvasc DVT prophylaxis Coumadin Discharge planning If patient can tolerate standing and walking without causing recurrence of CSF leak and she will be ready to DC to [facility] today. Patient also to have Lovenox bridge and Coumadin. Spoke with Dr Naqvi appreciate recommendations. ABX at discharge: Ceftriaxone 1000 mg IV Q12 hrs. END date: 12/10/17 Daptomycin 900 mg IV Q24 hrs. END date: 12/07/17 Kamla Bermudez MD Nov 10, 2017 08:43
[2017-11-10] MEDS ORDERED: OXYC1CAP PO (08:46)
[2017-11-10] MEDS: GABAPENTIN 100 MG CAP PO SCH ×3 (09:55→17:11)
[2017-11-10] MEDS: MULTIVITAMINS/MINERALS THERAPEUTIC TAB PO SCH (09:55)
[2017-11-10] MEDS: amLODIPine BESYLATE 5 MG TAB PO SCH (09:55)
[2017-11-10] MEDS: MAGNESIUM HYDROXIDE SUSP 30 ML CUP PO PRN (09:55)
[2017-11-10] MEDS: DOCUSATE SODIUM 100 MG CAP PO SCH (09:55)
[2017-11-10] MEDS: FERROUS SULFATE 325 MG (65 MG ELEMENTAL IRON) TAB PO SCH (09:55)
[2017-11-10] MEDS: PANTOPRAZOLE SOD 20 MG DELAYED RELEASE TAB PO SCH (09:55)
[2017-11-10] MEDS: ENOXAPARIN SODIUM 150 MG/ML SYRINGE SQ SCH (09:56)
[2017-11-10] MEDS: BISACODYL 10 MG SUPP RECTAL PRN (09:56)
[2017-11-10] MEDS: DAPTOmycin INJ 900 MG in SODIUM CHLORIDE 0.9% INJ 100 ML IV SCH (09:56)
[2017-11-10] MEDS: FLUTICASONE PROPIONATE 50 MCG/ACT 16 GM NASAL SPRAY NASAL SCH (09:56)
--- NOTE | 2017-11-10 11:41 | PD.ORT.PN ---
Subjective Subjective Remarks Patient comfortable. Pain controlled. Denies FOLEY. Objective Vitals Vital Signs Date Time Temp Pulse Resp B/P (MAP) Pulse Ox O2 Delivery O2 Flow Rate FiO2 11/10/17 07:42 98.5 54 20 159/68 (98) 98 11/10/17 04:00 98.2 55 18 143/72 (95) 97 11/10/17 00:00 98.2 57 18 129/59 (82) 97 11/09/17 20:00 98.5 57 18 126/58 (80) 95 11/09/17 16:00 98.4 86 18 128/79 (95) 95 11/09/17 12:00 98.5 94 18 135/61 (85) 95 I/O 11/09/17 11/09/17 11/09/17 11/10/17 11/10/17 11/10/17 07:00 15:00 23:00 07:00 15:00 23:00 Intake Total 560 ml Output Total 1000 ml 500 ml 2650 ml Balance -1000 ml 60 ml -2650 ml Intake Oral 560 ml Output Urine Total 1000 ml 500 ml 2650 ml # Bowel Movements 0 0 Result Diagram: 11/08/17 0642 11/08/17 0642 Objective Remarks Lumbar spine no drainage noted, wound healing well motor +5/5 to LE Neurologically no focal deficit. Assessment & Plan Assessment and Plan Discharge planning for [facility] when patient is medically cleared to get out of bed Continue antibiotics per I.D. Medical management for left femoral DVT Dietary consult eval for assistance and management of malnutrition. Medical team evaluating and treating anemia and malnutrition Monitor Timothy To Nov 10, 2017 11:41
[2017-11-10 12:42] VITALS: BP 133/60; PULSE 64; RESP 20; TEMP 97.4; O2SAT 95
[2017-11-10] MEDS: DEXTROSE 5%-LACTATED RING INJ 1,000 ML IV SCH (14:39)
[2017-11-10] MEDS: WARFARIN SOD 4 MG TAB PO SCH (17:11)
[2017-11-10 18:07] VITALS: BP 120/68; PULSE 68; RESP 20; TEMP 98.3; O2SAT 94
== END 2017-11-10 18:46 | DRG 856 ==
LOC: HSDC 10:37 → HSDI 15:53 → N07A 17:42 → N05B 10-29 13:22 → N05A 10-29 15:08
PROVIDERS: ADMIT Orthopaedic Surgery Orthopaedic Surgery of the Spine; ATTEND Hospitalist
PROC: 0JB70ZZ Excision of Back Subcutaneous Tissue and Fascia, Open Approach (ICD-10-PCS; 2017-10-05)
PROC: 01NB0ZZ Release Lumbar Nerve, Open Approach (ICD-10-PCS; 2017-10-05)
PROC: 009U00Z Drainage of Spinal Canal with Drainage Device, Open Approach (ICD-10-PCS; 2017-10-05)
PROC: 00UT0JZ Supplement Spinal Meninges with Synthetic Substitute, Open Approach (ICD-10-PCS; principal; 2017-10-05 13:25)
PROC: 30233N1 Transfusion of Nonautologous Red Blood Cells into Peripheral Vein, Percutaneous Approach (ICD-10-PCS; 2017-10-09)
PROC: 3C1ZX8Z Irrigation of Indwelling Device using Irrigating Substance, External Approach (ICD-10-PCS; 2017-10-15)
PROC: 3C1ZX8Z Irrigation of Indwelling Device using Irrigating Substance, External Approach (ICD-10-PCS; 2017-10-19)
PROC: 3C1ZX8Z Irrigation of Indwelling Device using Irrigating Substance, External Approach (ICD-10-PCS; 2017-10-23)
PROC: 009U30Z Drainage of Spinal Canal with Drainage Device, Percutaneous Approach (ICD-10-PCS; 2017-10-29)
PROC: 00PUX0Z Removal of Drainage Device from Spinal Canal, External Approach (ICD-10-PCS; 2017-11-02)
DX: T81.4XXA Infection following a procedure, initial encounter (principal); G06.1 Intraspinal abscess and granuloma; N17.9 Acute kidney failure, unspecified; G97.82 Other postprocedural complications and disorders of nervous system; E46 Unspecified protein-calorie malnutrition; I10 Essential (primary) hypertension; D50.9 Iron deficiency anemia, unspecified; F17.210 Nicotine dependence, cigarettes, uncomplicated; G96.0 Cerebrospinal fluid leak; R78.81 Bacteremia; L02.212 Cutaneous abscess of back [any part, except buttock and flank]; I82.412 Acute embolism and thrombosis of left femoral vein; Z68.41 Body mass index [BMI] 40.0-44.9, adult; T82.828A Fibrosis due to vascular prosthetic devices, implants and grafts, initial encounter; E66.01 Morbid (severe) obesity due to excess calories; B95.62 Methicillin resistant Staphylococcus aureus infection as the cause of diseases classified elsewhere; D64.9 Anemia, unspecified; E78.5 Hyperlipidemia, unspecified; R51 Headache; E88.09 Other disorders of plasma-protein metabolism, not elsewhere classified; B96.1 Klebsiella pneumoniae [K. pneumoniae] as the cause of diseases classified elsewhere; B95.7 Other staphylococcus as the cause of diseases classified elsewhere; K59.00 Constipation, unspecified; K21.9 Gastro-esophageal reflux disease without esophagitis; T36.8X5A Adverse effect of other systemic antibiotics, initial encounter; R32 Unspecified urinary incontinence; G89.4 Chronic pain syndrome; M48.061 Spinal stenosis, lumbar region without neurogenic claudication; Y83.8 Other surgical procedures as the cause of abnormal reaction of the patient, or of later complication, without mention of misadventure at the time of the procedure
CPT/HCPCS: 36010; 36011; 36430; 36595; 36598; 62270; 63741; 71045; 72148; 73620; 75827; 75901; 76775; 76937; 77003; 80048; 80053; 80069; 80202; 81001; 82272; 82550; 82565; 82728; 82945; 83036; 83540; 83550; 83735; 84100; 84134; 84157; 84439; 84443; 85007; 85025; 85027; 85610; 85652; 85730; 86140; 86160; 86403; 86850; 86900; 86901; 86920; 87015; 87040; 87070; 87077; 87102; 87116; 87147; 87186; 87205; 87206; 88305; 89051; 93970; 94150; 99152; 99153; C1755; C1769; C1773; C1788; C1887; C1894; J0131; J0690; J0692; J0696; J0878; J1100; J1170; J1580; J1642; J1650; J2175; J2250; J2270; J2370; J2405; J3010; J3370; J3430; J7040; J7050; J7121; P9016; Q9967

== ENCOUNTER 2018-03-11 07:46 | Observation (INO) ==
[2018-03-11] MEDS ORDERED: Sod Chloride 0.9% Inj 1,000 ML IV.SIG ONE (08:28)
--- NOTE | 2018-03-11 09:14 | XR ---
EXAM DATE: 03/11/2018 8:49 AM EDT AGE/SEX: 62 years / Female INDICATIONS: Cough, diarrhea, fever and body aches. CLINICAL DATA: This is the patient's initial encounter. Patient reports that signs and symptoms have been present for 2 weeks and indicates a pain score of 6/10. MEDICAL/SURGICAL HISTORY: None. . Hysterectomy.Tonsillectomy.Gastric bypass. Appendectomy. Cho lecystectomy. Port placement. COMPARISON: C, CHEST SINGLE AP, 11/14/2017. . FINDINGS: Elevation of the left hemidiaphragm is stable. Lungs otherwise remain clear without evidence of acute airspace disease. Heart and mediastinal structures are stable. Right-sided Qtfysy-q-Vwos remains in good position. CONCLUSION: No evidence of acute cardiopulmonary process. Electronically signed by: Lowell Schofield MD 03/11/2018 9:13 AM EDT
[2018-03-11 09:19] LABS: Baso % (Auto) 0.7 % (0.0-2.0); Eos # (Auto) 0.1 th/mm3 (0.0-0.4); Eos % (Auto) 1.2 % (0.0-4.0); Hematocrit 44.9 % (35.0-46.0); Hemoglobin 14.7 gm/dL (11.6-15.3); Lymph % (Auto) 27.7 % (9.0-44.0); Mean Corpuscular HGB Conc 32.7 % (32.0-36.0); Mean Corpuscular Hemoglobin 30.5 pg (27.0-34.0); Mean Corpuscular Volume 93.2 fL (80.0-100.0); Mean Platelet Volume 9.2 fL (7.0-11.0); Mono # (Auto) 0.6 th/mm3 (0.0-0.9); Mono % (Auto) 7.8 % (0.0-8.0); Neut # (Auto) 4.5 th/mm3 (1.8-7.7); Neut % (Auto) 62.6 % (16.0-70.0); Platelet Count 259 th/mm3 (150-450); Red Blood Count 4.82 mil/mm3 (4.00-5.30); Red Cell Distribution Width 15.4 % (11.6-17.2); White Blood Count 7.2 th/mm3 (4.0-11.0)
--- NOTE | 2018-03-11 09:42 | ED ---
HPI General Chief complaint: Weakness Stated complaint: Medical compliant Time Seen by Provider: 03/11/18 08:19 History of Present Illness HPI narrative: This is a 62-year-old female with a history of hypertension, hyperlipidemia,, presents here with 1-1/2-2 weeks of progressive weakness. Patient states that she has not been eating. She states she has been nauseous. She also reports loose stools over the last week. She reports decreased urine output. She denies any vomiting but does state that the nausea is there. She does report that she has had subjective chills and has felt warm. There is no ill contacts. She denies any upper respiratory symptoms. She reports that she gets crampy discomfort in her abdomen when she has the diarrhea. She denies any focal abdominal pain. Related Data Home Medications Medication Instructions Recorded Confirmed No Known Home Medications 03/11/18 03/11/18 Allergies Allergy/AdvReac Type Severity Reaction Status Date / Time Penicillins Allergy Unknown Hives Verified 03/11/18 08:01 Sulfa (Sulfonamide AdvReac Intermediate Nausea/Vomi Verified 03/11/18 08:01 Antibiotics) ting Review of Systems Except as stated in HPI: all other systems reviewed are negative Constitutional Reports chills (Subjective) and Reports fever(s) (Subjective) Eyes Reports system reviewed and no additional complaints, except as docu ENT Denies dizziness, Reports dry mouth and Denies lip swelling Cardiovascular Denies chest pain and Denies diaphoresis Respiratory Denies chest congestion, Denies cough and Denies wheezing Gastrointestinal Reports abdominal pain (Crampy), Denies hematochezia, Denies diarrhea, Reports loose stools (Low jellylike.) and Reports nausea Genitourinary Denies dysuria and Reports other (Decreased urine output.) Musculoskeletal Denies system reviewed and no additional complaints, except as docu and Reports muscle weakness (Generalized) Integumentary/Breasts Denies lesions and Denies rash Neurologic Reports dizziness, Denies focal weakness and Reports weakness PMFSH Medical History Medical History HBP (high blood pressure) (Acute) Hx of hysterectomy (Acute) Neuropathy (Acute) Surgical History Surgical History Hx of appendectomy (Acute) Hx of section (Acute) Hx of cholecystectomy (Acute) Hx of total knee replacement (Acute) Social History Social History Substance History: No History of Abuse Second Hand Smoke Exposure: No Smoking Status: Former smoker Tobacco Type: Cigarettes How Often Do You Have a Drink Containing Alcohol: Never Recent Travel in [facility] within the Last 8 Weeks: No Recent Out of Country Travel within the Last 8 Weeks: No Immunization History Tetanus Immunization: >5 Years Hx Influenza Vaccine This Season: Yes Exam Narrative Exam Narrative: GENERAL: Well-developed well-nourished female in no acute respiratory distress. SKIN: Focused skin assessment warm/dry. HEAD: Atraumatic. Normocephalic. EYES: No scleral icterus. No injection or drainage. ENT: No nasal bleeding or discharge. Mucous membranes pink and dry. NECK: Trachea midline. Supple. CARDIOVASCULAR: Regular rate and rhythm. No murmur appreciated. RESPIRATORY: No accessory muscle use. Clear to auscultation. Breath sounds equal bilaterally. Large habitus therefore difficult to auscultate. GASTROINTESTINAL: Abdomen soft, obese, non-tender, nondistended. No pulsatile masses. MUSCULOSKELETAL: No obvious deformities. No clubbing. No cyanosis. No edema. NEUROLOGICAL: Awake and alert. No obvious cranial nerve deficits. Motor grossly within normal limits. Normal speech. Course Initial Documented Vital Signs Temperature 97.8 F 03/11/18 07:49 Pulse Rate 84 03/11/18 07:49 Respiratory Rate 20 03/11/18 07:49 Blood Pressure 112/64 03/11/18 07:49 Pulse Oximetry 97 03/11/18 07:49 Last Documented Vital Signs Temperature 97.9 F 03/11/18 11:40 Pulse Rate 72 03/11/18 11:40 Respiratory Rate 18 03/11/18 12:13 Blood Pressure 118/75 03/11/18 11:40 Pulse Oximetry 99 03/11/18 11:40 Medical Decision Making [facility] Narrative Medical decision making narrative: 62-year-old female with a history of hypertension, hyperlipidemia, neuropathy, chronic bilateral knee pain, recent back surgery, presents here with complaints of pain all over and weakness. Patient states over the last week and a half she has been progressively more and more weak. She reports loose stools/diarrhea. She states she has had yellow Jell-O like stools. There is no reported objective fever although she has had associated subjective fevers and chills. She has had total body aches. She states she gets cramps in her abdomen when she has the loose stools. She has acute kidney injury on laboratory testing. Her CK is 500. Patient also has a UTI she has been given antibiotics, IV fluids. Her TSH level was noted to be low. Given all the different findings with the acute kidney injury, elevated CK, dirty urinalysis and low TSH level, recommendation is that she be admitted to the hospital for further evaluation. Case was discussed with the [facility] hospitalist team who is in agreement. Differential Diagnosis Differential Diagnosis: Metabolic derangement versus pneumonia versus UTI versus Lab Data Result diagrams: 03/11/18 08:40 03/11/18 08:40 Lab Results 03/11/18 03/11/18 03/11/18 Range/Units 08:40 08:40 08:40 WBC 7.2 (4.0-11.0) th/mm3 RBC 4.82 (4.00-5.30) mil/mm3 Hgb 14.7 (11.6-15.3) gm/dL Hct 44.9 (35.0-46.0) % MCV 93.2 (80.0-100.0) fL MCH 30.5 (27.0-34.0) pg MCHC 32.7 (32.0-36.0) % RDW 15.4 (11.6-17.2) % Plt Count 259 (150-450) th/mm3 MPV 9.2 (7.0-11.0) fL Neut % (Auto) 62.6 (16.0-70.0) % Lymph % (Auto) 27.7 (9.0-44.0) % [place] % (Auto) 7.8 (0.0-8.0) % Eos % (Auto) 1.2 (0.0-4.0) % Baso % (Auto) 0.7 (0.0-2.0) % Neut # (Auto) 4.5 (1.8-7.7) th/mm3 Lymph # (Auto) 2.0 (1.0-4.8) th/mm3 [place] # (Auto) 0.6 (0.0-0.9) th/mm3 Eos # (Auto) 0.1 (0.0-0.4) th/mm3 Baso # (Auto) 0.0 (0.0-0.2) th/mm3 WBC Differential . Differential Comment Auto diff final Sodium 140 (136-145) meq/L Potassium 4.3 (3.5-5.1) meq/L Chloride 108 H (98-107) meq/L Carbon Dioxide 26.9 (21.0-32.0) meq/L Anion Gap 5 (5-15) meq/L BUN 20 H (7-18) mg/dL Creatinine 1.25 H (0.50-1.00) mg/dL Estimated GFR 53 L (>89) mL/min POC Glucose (68-110) mg/dl Random Glucose 94 (74-106) mg/dL Lactic Acid 1.6 (0.4-2.0) mmol/L Calcium 9.6 (8.5-10.1) mg/dL Total Bilirubin 0.7 (0.2-1.0) mg/dL AST 44 H (15-37) U/L ALT 36 (10-53) U/L Alkaline Phosphatase 131 H (45-117) U/L Total Creatine Kinase 475 H (26-192) U/L CK-MB (CK-2) 2.0 (0.5-3.6) ng/mL CK-MB (CK-2) % 0.4 (0.0-4.0) % Troponin I Less than 0.02 L (0.02-0.05) ng/mL Total Protein 8.4 H (6.4-8.2) g/dL Albumin 3.6 (3.4-5.0) g/dL TSH 0.224 L (0.358-3.740) uIU/mL Free T4 (0.76-1.46) ng/dL Thyroxine (T4) (4.8-13.9) mcg/dL Free T3 (2.18-3.98) pg/mL Urine Color (Yellw/Straw) Urine Clarity (Clear) Urine pH (5.0-8.5) Ur Specific [place] (1.002-1.035) Urine Protein (Neg-Trace) mg/dL Urine Glucose (UA) (Negative) mg/dL Urine Ketones (Negative) mg/dL Urine Occult Blood (Negative) Urine Nitrate (Negative) Urine Bilirubin (Negative) Urine Urobilinogen (Less than 2) mg/dL Ur Leukocyte Esterase (Negative) Urine RBC (0-3) /hpf Urine WBC (0-5) /hpf Ur Squamous Epith Cells (0-5) /hpf Ur Transition Epith Cell (None) /hpf Urine Bacteria (None) /hpf Hyaline Casts (0-3) /lpf Urine Mucus (Occasional) /lpf Micro UA Comment Urine Culture Comments 03/11/18 03/11/18 03/11/18 Range/Units 08:40 08:40 08:46 WBC (4.0-11.0) th/mm3 RBC (4.00-5.30) mil/mm3 Hgb (11.6-15.3) gm/dL Hct (35.0-46.0) % MCV (80.0-100.0) fL MCH (27.0-34.0) pg MCHC (32.0-36.0) % RDW (11.6-17.2) % Plt Count (150-450) th/mm3 MPV (7.0-11.0) fL Neut % (Auto) (16.0-70.0) % Lymph % (Auto) (9.0-44.0) % Coffee % (Auto) (0.0-8.0) % Eos % (Auto) (0.0-4.0) % Baso % (Auto) (0.0-2.0) % Neut # (Auto) (1.8-7.7) th/mm3 Lymph # (Auto) (1.0-4.8) th/mm3 [place] # (Auto) (0.0-0.9) th/mm3 Eos # (Auto) (0.0-0.4) th/mm3 Baso # (Auto) (0.0-0.2) th/mm3 WBC Differential Differential Comment Sodium (136-145) meq/L Potassium (3.5-5.1) meq/L Chloride (98-107) meq/L Carbon Dioxide (21.0-32.0) meq/L Anion Gap (5-15) meq/L BUN (7-18) mg/dL Creatinine (0.50-1.00) mg/dL Estimated GFR (>89) mL/min POC Glucose 135 H (68-110) mg/dl Random Glucose (74-106) mg/dL Lactic Acid (0.4-2.0) mmol/L Calcium (8.5-10.1) mg/dL Total Bilirubin (0.2-1.0) mg/dL AST (15-37) U/L ALT (10-53) U/L Alkaline Phosphatase (45-117) U/L Total Creatine Kinase (26-192) U/L CK-MB (CK-2) (0.5-3.6) ng/mL CK-MB (CK-2) % (0.0-4.0) % Troponin I (0.02-0.05) ng/mL Total Protein (6.4-8.2) g/dL Albumin (3.4-5.0) g/dL TSH (0.358-3.740) uIU/mL Free T4 1.07 (0.76-1.46) ng/dL Thyroxine (T4) 9.8 (4.8-13.9) mcg/dL Free T3 2.93 (2.18-3.98) pg/mL Urine Color [place] (Yellw/Straw) Urine Clarity Hazy H (Clear) Urine pH 5.0 (5.0-8.5) Ur Specific [place] 1.029 (1.002-1.035) Urine Protein 30 H (Neg-Trace) mg/dL Urine Glucose (UA) Negative (Negative) mg/dL Urine Ketones Negative (Negative) mg/dL Urine Occult Blood Small H (Negative) Urine Nitrate Negative (Negative) Urine Bilirubin Negative (Negative) Urine Urobilinogen 2.0 H (Less than 2) mg/dL Ur Leukocyte Esterase Negative (Negative) Urine RBC 1 (0-3) /hpf Urine WBC 8 H (0-5) /hpf Ur Squamous Epith Cells 4 (0-5) /hpf Ur Transition Epith Cell <1 (None) /hpf Urine Bacteria Few H (None) /hpf Hyaline Casts 3 (0-3) /lpf Urine Mucus Many H (Occasional) /lpf Micro UA Comment Cath-culture ind Urine Culture Comments Cath-cult indicated Imaging Data Radiologist's impression: Chest X-Ray 03/11/18 08:28 CONCLUSION: No evidence of acute cardiopulmonary process. Discharge Plan Discharge Disposition Patient Disposition: 30 Still Patient Discharge Details Diagnosis: Acute kidney injury, Rhabdomyolysis, Cystitis, Hypothyroidism, History of hypertension, History of hyperlipidemia Physicians Team ED Provider: Rd Xiong Attending Provider: Gilson Rabago Discharge Interventions Interventions: ED Discharge Assessment Last Done: 03/11/18 13:10 Vital Signs Last Done: 03/11/18 13:10 Status ED Status: Left Department Discharge Information Discharge Date/Time: 03/11/18 13:10
[2018-03-11 09:54] LABS: Thyroid Stimulating Hormone 0.224 uIU/mL (0.358-3.740)
[2018-03-11 09:59] LABS: Alanine Aminotransferase 36 U/L (10-53); Albumin 3.6 g/dL (3.4-5.0); Alkaline Phosphatase 131 U/L (45-117); Anion Gap 5 meq/L (5-15); Blood Urea Nitrogen 20 mg/dL (7-18); Calcium 9.6 mg/dL (8.5-10.1); Carbon Dioxide 26.9 meq/L (21.0-32.0); Chloride 108 meq/L (98-107); Glomerular Filtration Rate 53 mL/min (>89); Glucose,Random 94 mg/dL (74-106); Sodium 140 meq/L (136-145); Total Protein 8.4 g/dL (6.4-8.2)
[2018-03-11 10:00] LABS: Aspartate Aminotransferase 44 U/L (15-37); Creatine Kinase 475 U/L (26-192); Potassium 4.3 meq/L (3.5-5.1)
[2018-03-11 10:12] LABS: CKMB Percent 0.4 % (0.0-4.0)
[2018-03-11 11:38] LABS: Bacteria,Urine Few /hpf; Bilirubin,Urine Negative (Negative); Clarity,Urine Hazy (Clear); Color,Urine Amber (Yellw/Straw); Glucose,Urine (UA) Negative (Negative); Hyaline Casts,Urine 3 /lpf (0-3); Leukocyte Esterase,Urine Negative (Negative); Mucus,Urine Many /lpf (Occasional); Nitrite,Urine Negative (Negative); Specific Gravity,Urine 1.029 (1.002-1.035); Squamous Epithelial Cell,Urine 4 /hpf (0-5); Transitional Epi Cells,Urine <1 /hpf
[2018-03-11] MEDS ORDERED: Sodium Chlor 0.9% Inj 500 ML IV.SIG ONE (11:55)
[2018-03-11] MEDS ORDERED: Nitrofurantoin Monohydrate-Macrocrystal 100 MG Capsule PO ONE (11:57)
[2018-03-11] MEDS ORDERED: Morphine Sulfate Inj 2 MG/ML Vial IV.PUSH ONE (12:03)
[2018-03-11 12:49] LABS: T4 (Thyroxine) 9.8 mcg/dL (4.8-13.9)
[2018-03-11 12:58] LABS: Free T4 (Free Thyroxine) 1.07 ng/dL (0.76-1.46); Triiodothyronine (T3) Free 2.93 pg/mL (2.18-3.98)
[2018-03-11] MEDS ORDERED: Sod Chloride 0.9% Inj 1,000 ML IV.CONT SCH (15:15)
--- NOTE | 2018-03-11 15:51 | P.HP ---
History of Present Illness Primary Care Physician: Cole Villa History of Present Illness: 62-year-old black female being admitted for possible rhabdomyolysis versus myositis. Patient was in her usual state of health until about 2 weeks ago she began experiencing diffuse body aches with abdominal pain and diarrhea. Says that her stool is pasty to jellylike. Reports having a decreased appetite and reports having nausea but no james vomiting. Says that food does not worsen her symptoms. Reports having subjective fevers or chills although there are no fevers documented here in emergency department. Says that her pain in her abdomen is all over. Says it gets pretty bad and it just feels like a bad ache. Thus after symptoms did not improve she decided come to the emergency department after about 2 weeks. Says she lives at home with her daughter. Her lifestyle consists of sitting in her wheelchair for multiple hours during the day, says she does not perform any significant home chores including making meals or cleaning. He is to be at a rehab facility. Surgical history entails that the patient has had a gastric bypass with reversal because she says her body could not tolerated well. Also has had a cholecystectomy and appendectomy as well. The emergency department she had mild acute renal insufficiency along with an elevated creatinine kinase in the 400s. She did also have some elevated liver enzymes which could be secondary to her obesity suggestive of fatty liver. Chest x-ray which I independently reviewed was negative. [facility] - History History Provided By: Patient - Medical History Medical History: Medical History (Last Reviewed 03/11/18 @ 14:15 by Michelle Valle) HBP (high blood pressure) Hx of hysterectomy Neuropathy - Surgical History Surgical History: Surgical History (Last Reviewed 03/11/18 @ 14:15 by Michelle Valle) Hx of appendectomy Hx of section Hx of cholecystectomy Hx of total knee replacement - Family History Family History: Family History (Last Updated 03/11/18 @ 15:50 by Gilson Rabago MD) Mother Stroke - Tobacco History Second Hand Smoke Exposure: No Tobacco Use In Past 30 Days: No Smoking Status: Former smoker Tobacco Type: Cigarettes - Alcohol History How Often Do You Have a Drink Containing Alcohol: Never - Substance Use History Substance History: No History of Abuse - Travel History Recent Travel in the [place] Within the Last 8 Weeks: No Recent Travel Out of the Country Within the Last 8 Weeks: No - Immunization History Tetanus Immunization: >5 Years Hx Influenza Vaccine This Season: Yes Medications and Allergies Active Medications: Active Medications Sodium Chloride (Ns Inj) 1,000 mls @ 42 mls/hr IV.CONT .[id number] DARCI Sodium Chloride (Ns Flush) 2 ml IV.FLUSH BID DARCI Sodium Chloride (Ns Flush) 2 ml IV.FLUSH UNSCH PRN PRN Reason: FLUSH AFTER USING IV ACCESS Allergies Allergy/AdvReac Type Severity Reaction Status Date / Time Penicillins Allergy Unknown Hives Verified 03/11/18 08:01 Sulfa (Sulfonamide AdvReac Intermediate Nausea/Vomi Verified 03/11/18 08:01 Antibiotics) ting Home Medications Medication Instructions Recorded Confirmed Type No Known Home Medications 03/11/18 03/11/18 History Exam Vital signs: Vital Signs 03/11/18 07:49 03/11/18 07:51 03/11/18 08:28 Temperature 97.8 F 97.9 F Pulse Rate 84 78 81 Respiratory Rate 20 18 Blood Pressure 112/64 119/62 Pulse Oximetry 97 99 99 03/11/18 10:00 03/11/18 11:40 03/11/18 12:13 Temperature 98.0 F 97.9 F Pulse Rate 83 72 Respiratory Rate 18 20 18 Blood Pressure 117/62 118/75 Pulse Oximetry 99 99 03/11/18 13:10 03/11/18 15:10 Temperature 97.8 F 97.7 F Pulse Rate 78 76 Respiratory Rate 17 16 Blood Pressure 108/77 134/68 Pulse Oximetry 96 Intake & Output 03/10/18 03/11/18 03/11/18 18:59 06:59 18:59 Intake Total 1500 / 1500 Balance 1500 / 1500 Weight 142.882 kg Intake: IV 1500 / 1500 NS Inj 1,000 ML @ Wide Open IV. 1000 / 1000 SIG BOLUS ONE Rx#:[id number] NS Inj 500 ML @ Wide Open IV. 500 / 500 SIG BOLUS ONE Rx#:[id number] Narrative: VS: afebrile GENERAL: Lying in bed, mild distress secondary to pain SKIN: Warm and dry. EYES: No scleral icterus. No injection or drainage. ENT: No nasal bleeding or discharge. Mucous membranes pink and moist. CARDIOVASCULAR: Regular rate and rhythm. no murmurs RESPIRATORY: No accessory muscle use. Clear to auscultation. Breath sounds equal bilaterally. GASTROINTESTINAL: Abdomen soft, obese habitus, has obvious tenderness to palpation especially over the epigastrium and left sided quadrants on really deep palpation Extremities: No clubbing, cyanosis, or edema. No obvious deformities. MUSCULOSKELETAL: 4 out of 5 proximal upper and lower extremity strength bilaterally NEUROLOGICAL: Awake and alert. No obvious cranial nerve deficits. No facial droop nor slurred speech noted. PSYCHIATRIC: Appropriate mood and affect; insight and judgment normal. Results - Labs CBC & Chem 7: 03/11/18 08:40 03/11/18 08:40 Labs: Laboratory Results - last 24 hr 03/11/18 03/11/18 03/11/18 08:40 08:40 08:40 WBC 7.2 RBC 4.82 Hgb 14.7 Hct 44.9 MCV 93.2 MCH 30.5 MCHC 32.7 RDW 15.4 Plt Count 259 MPV 9.2 Neut % (Auto) 62.6 Lymph % (Auto) 27.7 [place] % (Auto) 7.8 Eos % (Auto) 1.2 Baso % (Auto) 0.7 Neut # (Auto) 4.5 Lymph # (Auto) 2.0 [place] # (Auto) 0.6 Eos # (Auto) 0.1 Baso # (Auto) 0.0 WBC Differential . Differential Comment Auto diff final Sodium 140 Potassium 4.3 Chloride 108 H Carbon Dioxide 26.9 Anion Gap 5 BUN 20 H Creatinine 1.25 H Estimated GFR 53 L POC Glucose Random Glucose 94 Lactic Acid 1.6 Calcium 9.6 Total Bilirubin 0.7 AST 44 H ALT 36 Alkaline Phosphatase 131 H Total Creatine Kinase 475 H CK-MB (CK-2) 2.0 CK-MB (CK-2) % 0.4 Troponin I Less than 0.02 L Total Protein 8.4 H Albumin 3.6 TSH 0.224 L Free T4 Thyroxine (T4) Free T3 Urine Color Urine Clarity Urine pH Ur Specific [place] Urine Protein Urine Glucose (UA) Urine Ketones Urine Occult Blood Urine Nitrate Urine Bilirubin Urine Urobilinogen Ur Leukocyte Esterase Urine RBC Urine WBC Ur Squamous Epith Cells Ur Transition Epith Cell Urine Bacteria Hyaline Casts Urine Mucus Micro UA Comment Urine Culture Comments 03/11/18 03/11/18 03/11/18 08:40 08:40 08:46 WBC RBC Hgb Hct MCV MCH MCHC RDW Plt Count MPV Neut % (Auto) Lymph % (Auto) [place] % (Auto) Eos % (Auto) Baso % (Auto) Neut # (Auto) Lymph # (Auto) [place] # (Auto) Eos # (Auto) Baso # (Auto) WBC Differential Differential Comment Sodium Potassium Chloride Carbon Dioxide Anion Gap BUN Creatinine Estimated GFR POC Glucose 135 H Random Glucose Lactic Acid Calcium Total Bilirubin AST ALT Alkaline Phosphatase Total Creatine Kinase CK-MB (CK-2) CK-MB (CK-2) % Troponin I Total Protein Albumin TSH Free T4 1.07 Thyroxine (T4) 9.8 Free T3 2.93 Urine Color [place] Urine Clarity Hazy H Urine pH 5.0 Ur Specific [place] 1.029 Urine Protein 30 H Urine Glucose (UA) Negative Urine Ketones Negative Urine Occult Blood Small H Urine Nitrate Negative Urine Bilirubin Negative Urine Urobilinogen 2.0 H Ur Leukocyte Esterase Negative Urine RBC 1 Urine WBC 8 H Ur Squamous Epith Cells 4 Ur Transition Epith Cell <1 Urine Bacteria Few H Hyaline Casts 3 Urine Mucus Many H Micro UA Comment Cath-culture ind Urine Culture Comments Cath-cult indicated 03/11/18 13:16 WBC RBC Hgb Hct MCV MCH MCHC RDW Plt Count MPV Neut % (Auto) Lymph % (Auto) [place] % (Auto) Eos % (Auto) Baso % (Auto) Neut # (Auto) Lymph # (Auto) [place] # (Auto) Eos # (Auto) Baso # (Auto) WBC Differential Differential Comment Sodium Potassium Chloride Carbon Dioxide Anion Gap BUN Creatinine Estimated GFR POC Glucose 93 Random Glucose Lactic Acid Calcium Total Bilirubin AST ALT Alkaline Phosphatase Total Creatine Kinase CK-MB (CK-2) CK-MB (CK-2) % Troponin I Total Protein Albumin TSH Free T4 Thyroxine (T4) Free T3 Urine Color Urine Clarity Urine pH Ur Specific [place] Urine Protein Urine Glucose (UA) Urine Ketones Urine Occult Blood Urine Nitrate Urine Bilirubin Urine Urobilinogen Ur Leukocyte Esterase Urine RBC Urine WBC Ur Squamous Epith Cells Ur Transition Epith Cell Urine Bacteria Hyaline Casts Urine Mucus Micro UA Comment Urine Culture Comments - Imaging Impressions Chest X-Ray 03/11/18 08:28 CONCLUSION: No evidence of acute cardiopulmonary process. Caprini VTE Risk Assessment Caprini VTE Risk Assessment: Moderate/High Risk (score >= 2) Caprini Risk Assessment Model: Point Value = 1 Point Value = 2 Point Value = 3 Point Value = 5 Age 41-60 Minor surgery BMI > 25 kg/m2 Swollen legs Varicose veins or History of unexplained or recurrent spontaneous Oral contraceptives or hormone replacement Sepsis (< 1 month) Serious lung disease, including pneumonia (< 1 month) Abnormal pulmonary function Acute myocardial infarction Congestive heart failure (< 1 month) History of inflammatory bowel disease Medical patient at bed rest Age 61-74 Arthroscopic surgery Major open surgery (> 45 min) Laparoscopic surgery (> 45 min) Malignancy Confined to bed (> 72 hours) Immobilizing plaster cast Central venous access Age >= 75 History of VTE Family history of VTE Factor V Leiden Prothrombin [id number] Lupus anticoagulant Anticardiolipin antibodies Elevated serum homocysteine Heparin-induced thrombocytopenia Other congenital or acquired thrombophilia Stroke (< 1 month) Elective arthroplasty Hip, pelvis, or leg fracture Acute spinal cord injury (< 1 month) Prophylaxis Regimen: Total Risk Factor Score Risk Level Prophylaxis Regimen 0-1 Low Early ambulation 2 Moderate Order ONE of the following: *Sequential Compression Device (SCD) *Heparin 5000 units SQ BID 3-4 Higher Order ONE of the following medications: *Heparin 5000 units SQ TID *Enoxaparin/Lovenox 40 mg SQ daily (WT < 150 kg, CrCl > 30 mL/min) *Enoxaparin/Lovenox 30 mg SQ daily (WT < 150 kg, CrCl > 10-29 mL/min) *Enoxaparin/Lovenox 30 mg SQ BID (WT < 150 kg, CrCl > 30 mL/min) AND/OR *Sequential Compression Device (SCD) 5 or more Highest Order ONE of the following medications: *Heparin 5000 units SQ TID (Preferred with Epidurals) *Enoxaparin/Lovenox 40 mg SQ daily (WT < 150 kg, CrCl > 30 mL/min) *Enoxaparin/Lovenox 30 mg SQ daily (WT < 150 kg, CrCl > 10-29 mL/min) *Enoxaparin/Lovenox 30 mg SQ BID (WT < 150 kg, CrCl > 30 mL/min) AND *Sequential Compression Device (SCD) Assessment and Plan - Plan 62-year-old black female being admitted for rhabdomyolysis versus myositis Elevated CK -Wonder if this is from liver versus muscle, will obtain a GGT, start IV fluids -Obtain urine drug screen, I doubt any significant source of alcohol as being the problem in this patient, immobility and sedentary lifestyle could be contributing to this We will obtain an ESR to help rule out any true polymyositis Abdominal pain with diarrhea -Does not sound truly loose enough to be C. difficile but will obtain the PCR nonetheless We will obtain a CT abdomen with contrast; no signs of obstruction based upon the history -Elevated LFTs could be suggestive of benign hepatitis versus something acute, will trend, flush with IV fluids, suspect fatty liver -tramadol for pain, refrain from tylenol for now -UA possibly suggestive of UTI, rocephin for now until Cx results LINDA - IVFs, likely 2/2 ETOH, bmp trend lovenox
[2018-03-11] MEDS: Enoxaparin Inj 40 MG/0.4 ML Syringe SQ SCH (16:55)
[2018-03-11] MEDS ORDERED: Diatrizoate Meglum/Diatrizoate Sod Liq 9 ML UDC PO ONE (17:15)
[2018-03-11] MEDS ORDERED: Morphine Inj 4 MG/ML Vial IV.PUSH ONE (20:54)
--- NOTE | 2018-03-11 21:42 | ECG ---
Date Performed: 03/11/2018 Time Performed: 08:52:39 PTAGE: 62 years EKG: Sinus rhythm NONSPECIFIC T-WAVE ABNORMALITY BORDERLINE ECG PREVIOUS TRACING : 09/12/2017 11.22 Since the previous tracing, no significant change noted DOCTOR: Hakeem Blanchard Interpretating Date/Time 03/11/2018 21:41:13
--- NOTE | 2018-03-11 22:37 | CT ---
EXAM DATE: 03/11/2018 9:46 PM EDT AGE/SEX: 62 years / Female INDICATIONS: Abdomen pain. CLINICAL DATA: This is the patient's initial encounter. Patient reports that signs and symptoms have been present for 1 day and indicates a pain score of 5/10. MEDICAL/SURGICAL HISTORY: None. Cholecystectomy. Appendectomy. Hysterectomy. ORAL CONTRAST: Prescribed oral contrast ingested. RADIATION DOSE: 16.49 CTDI (mGy) COMPARISON: No prior exams available for comparison. TECHNIQUE: Multiple contiguous axial images were obtained through the abdomen and pelvis following b olus infusion of 75 ml Omnipaque 350 (iohexol) nonionic water-soluble contrast as a single exam dos e. Prescribed oral contrast ingested. Using automated exposure control and adjustment of the mA and/ or kV according to patient size, radiation dose was kept as low as reasonably achievable to obtain op timal diagnostic quality images. DICOM format image data is available electronically for review and comparison. FINDINGS: Lung bases clear except for minimal atelectasis. Mild fatty liver. No acute findings in the spleen, a drenals or kidneys. Pancreas is atrophic and not well visualized. No bowel obstruction. No free air or free fluid. No adenopathy. CONCLUSION: 1. No acute findings on abdomen and pelvic CT. Previous cholecystectomy, appendectomy and hysterecto my. No obstruction, free fluid or free air. Probable postop change in the gastric region as well. Mil d fatty liver. Electronically signed by: Jas Godfrey MD 03/11/2018 10:36 PM EDT
[2018-03-12 06:58] LABS: CKMB Percent 0.5 % (0.0-4.0); Creatine Kinase MB 1.5 ng/mL (0.5-3.6)
[2018-03-12] MEDS: Enoxaparin Inj 40 MG/0.4 ML Syringe SQ SCH (09:41)
[2018-03-12 11:31] VITALS: BP 137/76; PULSE 63; RESP 16; TEMP 98.5; O2SAT 95
[2018-03-12 13:56] LABS: Calcium 9.1 mg/dL (8.5-10.1); Carbon Dioxide 27.2 meq/L (21.0-32.0)
[2018-03-12] MEDS ORDERED: Morphine Inj 4 MG/ML Vial IV.PUSH ONE (14:40)
--- NOTE | 2018-03-12 15:41 | P.PN ---
Subjective Interval history: Follow up for generalized weakness, diarrhea. Diarrhea resolved. Tolerating PO food, drink well. No fever, chills. No dysuria. Physical Exam Vital signs: Vital Signs 03/11/18 16:19 03/11/18 19:54 03/12/18 00:00 Temperature 100.0 F H 98.1 F Pulse Rate 71 67 71 Respiratory Rate 17 15 Blood Pressure 131/76 131/72 Pulse Oximetry 90 L 92 L 03/12/18 03:18 03/12/18 07:13 03/12/18 10:01 Temperature 98.0 F 98.0 F Pulse Rate 65 61 59 L Respiratory Rate 16 18 Blood Pressure 113/70 153/87 H Pulse Oximetry 92 L 93 L 03/12/18 11:31 Temperature 98.5 F Pulse Rate 63 Respiratory Rate 16 Blood Pressure 137/76 Pulse Oximetry 95 Intake & Output 03/11/18 03/12/18 03/12/18 18:59 06:59 18:59 Intake Total 1999 Balance 1999 Weight 142.882 kg Intake: IV 1500 / 1500 NS Inj 1,000 ML @ Wide Open IV. 1000 / 1000 SIG BOLUS ONE Rx#:[id number] NS Inj 500 ML @ Wide Open IV. 500 / 500 SIG BOLUS ONE Rx#:[id number] Oral 500 / 500 Narrative: GENERAL: Alert, NAD. Morbidly obese. SKIN: Warm and dry. HEAD: Normocephalic. EYES: No scleral icterus. No injection or drainage. NECK: Supple, trachea midline. No JVD or lymphadenopathy. CARDIOVASCULAR: Regular rate and rhythm without murmurs, gallops, or rubs. RESPIRATORY: Breath sounds equal bilaterally. No accessory muscle use. GASTROINTESTINAL: Abdomen soft, non-tender, nondistended. MUSCULOSKELETAL: No cyanosis, or edema. BACK: Nontender without obvious deformity. No CVA tenderness. - Urinary Catheter Management Straight Cath placed during this visit: yes, but has since been removed by the nurse Reason for continuing: Not indwelling catheter Insertion date: 03/11/18 Insertion time: 08:55 Removal date: 03/11/18 Removal time: 08:56 Results - Labs CBC & Chem 7: 03/11/18 08:40 03/12/18 13:08 Laboratory Results - last 24 hr 03/11/18 03/11/18 03/12/18 08:40 18:06 05:40 ESR 11 Sodium Potassium Chloride Carbon Dioxide Anion Gap BUN Creatinine Estimated GFR POC Glucose 119 H Random Glucose Calcium GGT Total Creatine Kinase 298 H CK-MB (CK-2) 1.5 CK-MB (CK-2) % 0.5 03/12/18 03/12/18 03/12/18 09:42 12:55 13:08 ESR Sodium 142 Potassium 4.0 Chloride 109 H Carbon Dioxide 27.2 Anion Gap 6 BUN 16 Creatinine 0.98 Estimated GFR 70 L POC Glucose 110 122 H Random Glucose 92 Calcium 9.1 GGT Total Creatine Kinase CK-MB (CK-2) CK-MB (CK-2) % 03/12/18 13:08 ESR Sodium Potassium Chloride Carbon Dioxide Anion Gap BUN Creatinine Estimated GFR POC Glucose Random Glucose Calcium GGT 19 Total Creatine Kinase CK-MB (CK-2) CK-MB (CK-2) % Microbiology 03/11/18 08:40 Catheterized Urine Urine Culture - Preliminary No growth in 24 hours - Imaging Impressions Abdomen/Pelvis CT 03/11/18 00:00 CONCLUSION: 1. No acute findings on abdomen and pelvic CT. Previous cholecystectomy, appendectomy and hysterectomy. No obstruction, free fluid or free air. Probable postop change in the gastric region as well. Mild fatty liver. Assessment and Plan - Plan Ms. Malloy is a pleasant 62 year old female who was admitted to the hospital for generalized weakness. Generalized weakness Diarrhea - Diarrhea resolved. No diarrhea in the hospital. - Tolerating PO fluid, food well. - Probably viral etiology. LINDA - Cr improved from 1.25 --> 0.98. Likely due to pre-renal cause. Suspected UTI - Culture does not show any evidence of infection. No dysuria either. No further need for Abx. Full code. Discharge home today. Follow up with PCP. Discharge patient to home Condition on discharge: Improved Cardiac Diet as tolerated Ad [place] activity Rx written: None. Follow-up with primary care physician within 7 days.
== END 2018-03-12 16:58 | disposition home or self-care (01) ==
LOC: NEPGCP 07:46 → NEDA 07:46 → NEPC 07:46 → NEPGCP 13:10
PROVIDERS: ADMIT Hospitalist; ATTEND Hospitalist
DX: N30.90 Cystitis, unspecified without hematuria; M62.82 Rhabdomyolysis; K76.0 Fatty (change of) liver, not elsewhere classified; F17.210 Nicotine dependence, cigarettes, uncomplicated; I10 Essential (primary) hypertension; R50.9 Fever, unspecified; R11.0 Nausea; R79.89 Other specified abnormal findings of blood chemistry; N17.9 Acute kidney failure, unspecified; E66.9 Obesity, unspecified; G62.9 Polyneuropathy, unspecified; R06.89 Other abnormalities of breathing; E03.9 Hypothyroidism, unspecified; R63.0 Anorexia; J98.11 Atelectasis; Z90.710 Acquired absence of both cervix and uterus; Z98.84 Bariatric surgery status; R19.7 Diarrhea, unspecified; E78.5 Hyperlipidemia, unspecified